=== PATIENT | female | born 1960 | race Caucasian/White ===

== ENCOUNTER 2023-12-06 09:12 | Outpatient (REF) | payer OTHER, SELFPAY ==
[2023-12-06 10:04] LABS: Cholesterol 240 mg/dL (<200); HDL Cholesterol 51 mg/dL (>40); LDL Cholesterol Calculated 160 mg/dL (<100); Triglycerides 146 mg/dL (<150)
[2023-12-06 10:07] LABS: Estimated Average Glucose 120 mg/dL; Hemoglobin A1c % 5.8 % (<6.0)
[2023-12-09 09:19] LABS: CRP High Sensitivity 19.5 mg/L
== END 2023-12-06 09:13 | disposition home or self-care (01) ==
LOC: HO.LAB 09:12
PROVIDERS: PCP Physician Assistant; Visit Provider Physician Assistant
DX: I10 Essential (primary) hypertension (principal); Z13.1 Encounter for screening for diabetes mellitus
CPT/HCPCS: 36415; 80061; 83036; 86141

== ENCOUNTER 2023-12-13 18:54 | Emergency (ER) | payer OTHER, SELFPAY ==
--- NOTE | ~2023-12-13 | XR_ITS ---
EXAMINATION: XR ELBOW, LEFT CLINICAL INFORMATION: Pain, injury. COMPARISON: None available. TECHNIQUE: AP, lateral, and oblique views of the left elbow. FINDINGS: The bones and soft tissues are normal. No fracture or joint effusion. Alignment is anatomic. Joint spaces are maintained. XR/XR elbow LT min 3V IMPRESSION: Normal left elbow. Electronically signed by: Pauline Andrade MD 12/13/2023 08:54 PM EDT
--- NOTE | ~2023-12-13 | CT_ITS ---
EXAMINATION: CT HEAD WITHOUT CONTRAST CLINICAL INFORMATION: Fall. Head strike and pain. COMPARISON: None available. TECHNIQUE: Contiguous axial imaging was performed from the skull base to vertex without intravenous administration of contrast. This CT examination was performed using dose optimization techniques as appropriate, variously including the following: *Automated exposure control *Adjustment of mA and/or kV according to patient size (this includes techniques or standardized protocols for targeted exams where dose is matched to indication/reason for exam; i.e. extremities or head) *Use of iterative reconstruction technique DLP: 1055 mGy-cm FINDINGS: No acute intracranial hemorrhage. No evidence of acute/subacute cerebral or cerebellar infarction. There is no midline shift or mass effect. There is no extra-axial fluid collection. The ventricles are normal in size. The orbits are symmetric and within normal limits. The calvarium is intact. Visualized paranasal sinuses are clear. Mastoid air cells are well aerated. CT/CT head/brain wo IV con IMPRESSION: No acute intracranial pathology. Electronically signed by: Geovany Kaur DO 12/13/2023 08:55 PM EDT
--- NOTE | ~2023-12-13 | XR_ITS ---
EXAMINATION: XR FOOT, LEFT CLINICAL INFORMATION: Pain, injury. COMPARISON: None available. TECHNIQUE: AP, lateral, and oblique views of the left foot. FINDINGS: No acute fracture or dislocation. Moderate multifocal degenerative osteoarthritis more prominent in the first MTP joint and second through fourth TMT joints. Nonspecific diffuse soft tissue swelling. XR/XR foot LT min 3V IMPRESSION: 1. No acute fracture or dislocation. 2. Moderate multifocal degenerative osteoarthritis. Electronically signed by: Pauline Andrade MD 12/13/2023 08:56 PM EDT
--- NOTE | ~2023-12-13 | CT_ITS ---
EXAMINATION: CT CERVICAL SPINE WITHOUT CONTRAST CLINICAL INFORMATION: Fall. Head strike. COMPARISON: None available. TECHNIQUE: Noncontrast computed tomography of the cervical spine was performed. This CT examination was performed using dose optimization techniques as appropriate, variously including the following: *Automated exposure control *Adjustment of mA and/or kV according to patient size (this includes techniques or standardized protocols for targeted exams where dose is matched to indication/reason for exam; i.e. extremities or head) *Use of iterative reconstruction technique DLP: 437.74 mGy-cm FINDINGS: Prevertebral soft tissue is normal in appearance. The atlantooccipital articulations are intact. The C1-C2 relationship is anatomic. There is reversal of the cervical lordosis with kyphotic deformity centered at C4-5. The posterior elements are anatomically aligned. Vertebral body heights are preserved. There is moderate multilevel degenerative disc disease extending from C3-4 through C6-7. There is multilevel facet arthropathy. No acute fracture. The visualized lung apices are clear. The thyroid gland is normal in appearance. CT/CT cervical spine wo IV con IMPRESSION: No acute osseous cervical spine abnormality. There is reversal of the cervical lordosis with kyphotic deformity centered at C4-5. There is moderate cervical spondylosis. Fleischner guidelines were followed. Electronically signed by: Geovany Kaur DO 12/13/2023 09:01 PM EDT
--- NOTE | ~2023-12-13 | XR_ITS ---
EXAMINATION: XR ANKLE, LEFT CLINICAL INFORMATION: Pain, injury. COMPARISON: None available. TECHNIQUE: AP, lateral, and mortise views of the left ankle. FINDINGS: Focal subcortical lucency and irregularity along the medial intra-articular surface of the talar dome. No dislocation. No significant soft tissue abnormality. XR/XR ankle LT min 3V IMPRESSION: Focal subcortical lucency and irregularity along the medial intra-articular surface of the talar dome, suspicious for an osteochondral defect/lesion. Consider further characterization with MRI. Electronically signed by: Pauline Andrade MD 12/13/2023 08:58 PM EDT
[2023-12-13 18:56] VITALS: BP 154/78; PULSE 109; RESP 17; TEMP 37; O2SAT 95; BMI 36.3
--- NOTE | 2023-12-13 19:09 | ED_ITS ---
HPI - General Adult General Chief complaint: Fall Stated complaint: passed out? Time Seen by Provider: 12/13/23 19:08 Source: patient Mode of arrival: wheelchair Limitations: no limitations History of Present Illness ED Provider: Agustina Lopes PA-C HPI narrative: 63 yo female presents following fall with head strike. States that she was standing in hallway and was struck by meal cart on her left ankle. She was knocked off her feet and spun around. She struck the back of her head against the wall and landed on her left elbow. She says she has a lump on the back of her head and abrasions on her left medial ankle, left palm, and left elbow. Has pain in left posterior neck with no radiation. Denies loss of consciousness, dizziness or syncope. Denies blurry or double vision, nausea. Onset (ago): hour(s) Location: head, upper extremity and lower extremity Radiation: neck Severity: mild Quality: aching Pain Consistency: constant Relieving factors: none Exacerbating factors: none Associated symptoms: denies other symptoms Treatments prior to arrival: none Related Data Allergies Allergy/AdvReac Type Severity Reaction Status Date / Time acetaminophen [From Percocet] Allergy Swelling Verified 12/13/23 18:59 latex Allergy Hives Verified 12/13/23 18:59 oxycodone [From Percocet] Allergy Swelling Verified 12/13/23 18:59 Review of Systems 2 Constitutional: Constitutional: Reports no additional constitutional complaints, Denies chills, Denies fever(s), Reports headache(s) and Denies night sweats Eyes: Eyes: Reports no additional eye complaints, Denies blurry vision, Denies change in vision, Denies diplopia, Denies eye discharge, Denies loss of vision and Denies eye pain ENT: Denies dizziness and Reports headache(s) Cardiovascular: Cardiovascular: Reports no additional cardiovascular complaints, Denies chest pain, Denies lightheadedness, Denies Loss of Consciousness and Denies dyspnea Respiratory: Respiratory: Reports no additional respiratory complaints and Denies dyspnea Gastrointestinal: Gastrointestinal: Reports no additional gastrointestinal complaints, Denies abdominal pain, Denies melena, Denies hematochezia, Denies change in bowel habits and Denies change in stool character Genitourinary: Genitourinary: Denies hematuria, Denies urinary frequency, Denies dysuria, Denies urinary incontinence, Denies urinary hesitancy and Denies urinary urgency Musculoskeletal: Musculoskeletal: Reports as per HPI, Denies numbness and Denies tingling Comments: left ankle pain, left elbow pain Integumentary/Breasts: Skin/Breast: Reports as per HPI Neurologic: Denies dizziness, Reports headache(s), Denies loss of vision, Denies numbness and Denies tingling Psychiatric: Psychiatric: Reports no additional psychiatric complaints Endocrine: Endocrine: Reports no additional endocrine complaints Hematologic/Lymphatic: Hematologic/Lymphatic: Reports no additional hematologic/lymphatic complaints Allergic/Immunologic: Allergic/Immunologic: Reports no additional allergic/immunologic complaints PMFSH Past Medical History Attestation statement: The following information was validated with the patient. Source: old records reviewed and nursing notes reviewed Social History Social History Alcohol intake: current Alcohol type: hard liquor Smoked in Last 30 Days: No Use of substances other than those prescribed or required for medical reasons: No Advance Directives: No Advance Directives Information Provided: No Patient : No Physical Exam ED Vital Signs: Vital Signs - 24 hr 12/13/23 18:56 12/13/23 21:32 12/14/23 01:12 Temperature 98.6 F 98.5 F 98.5 F Pulse Rate 109 H 101 H 101 H Respiratory Rate 17 18 18 Blood Pressure 154/78 H 149/86 H 149/86 H Pulse Oximetry 95 95 95 Oxygen Delivery Method Room Air Room Air Room Air BMI result Body Mass Index 36.3 Const General: cooperative, no acute distress, alert and awake Nutritional Appearance: well nourished Orientation/consciousness: patient oriented x3 Limitations: no limitations [facility] Head: Yes normal to inspection, No Sykes's sign, Yes contusion, No palpable skull fracture, No raccoon eyes and Yes scalp tenderness Ears: hearing grossly normal bilaterally and external ears normal General nose exam: Normal external nose present, no nasal discharge noted and no epistaxis Face and sinus: Yes normal facial exam, No abrasion and No laceration Mouth: Normal oral and palatal mucosa present, no drooling and no muffled voice Eyes General: appearance normal, both eyes and all related structures Periorbital: periorbital findings normal Eyelids: Yes eyelids normal Conjunctivae: conjunctivae normal Pupils: Equal, round and reactive pupils present EOM: EOMs intact bilaterally Neck Neck: Yes normal visual inspection, Yes full ROM and Yes no lymphadenopathy Chest Chest palpation & inspection: normal inspection of the chest Resp Effort & Inspection: normal respiratory effort and able to speak in complete sentences GI Inspection: Yes normal to inspection Neuro General: patient oriented x3 and moves all extremities Cranial nerves: Yes Equal, round and reactive pupils present Cognition (Neuro): normal cognition Extrem General: Yes full ROM and Yes capillary refill normal Right upper extremity: normal to inspection Left upper extremity: elbow/forearm Details: tenderness, normal ROM and abrasion and hand Details: normal capillary refill, neuromotor exam normal, neurosensory exam normal, tenderness, normal ROM of fingers and abrasion Shoulder/upper arm images: 2 1. Abrasion, no bleeding Hand/finger images: 2 1. Abrasion, no bleeding. Right lower extremity: normal to inspection Left lower extremity: full ROM, normal capillary refill and ankle Details: tenderness, no edema and abrasion (Medial ankle over medial malleolus) Ankle/foot/toe images: 2 1. Abrasion, no bleeding Psych Appearance: grossly normal Mental Status: mental status grossly normal Affect: normal affect Attitude: cooperative Thought process: Normal thought process present Thought content: Normal thought content present Insight: Good insight present (Psych) Medications Administered Discontinued Medications Generic Name Dose Route Start Last Admin Trade Name Freq PRN Reason Stop Dose Admin Naproxen 500 mg 12/13/23 20:09 12/13/23 20:18 Naproxen 500 Mg Tablet PO 12/13/23 20:10 500 mg ONCE ONE Administration Procedures Orthopedic Splinting/Casting Injury #1: Side: left Lower Extremity Injury Location: ankle and foot Lower Extremity Immobilizer: boot orthosis Medical Decision Making Medical Decision Making MDM Narrative: Patient is a 63 year old assigned female at with no reported medical history presenting to the emergency department today with left ankle pain, left elbow pain, and a headache after being struck by a meal cart. Patient's physical exam was as noted in the physical exam portion of this note. Patient's left elbow x-ray, head CT, and C-spine CT showed no acute process. Patient's left ankle x-ray showed a focal subcortical lucency and irregularity along the medial intra-articular surface of the talar dome which may represent a ligament injury. I explained my physical exam findings as well as all test results to the patient. I answered all questions asked by the patient. Patient's left ankle was placed in a walking boot, without incident. Patient's PMS was intact prior to and after boot placement. I stressed the importance of the patient taking her medication as directed (either prescribed or as the over the counter packaging recommends). I stressed the importance of the patient following up with her primary care provider, work connection, and an orthopedic provider. I stressed the importance of the patient returning to the emergency department immediately if her symptoms were to worsen or if she were to develop any dizziness, shortness of breath, difficulty breathing, chest pain, blurry vision, loss of vision, nausea, vomiting, abdominal pain, fever, chills, back pain, or any other complaints. Patient verbalized agreement and understanding with this treatment plan and discharge. Differential Diagnosis Differential Diagnoses: The differential diagnosis associated with the presentation includes Ankle sprain Fall Head injury Cervical injury Ankle fracture Ligament injury Admission/Observation Consideration of admission/observation: Escalation of care including admission/observation considered Patient would have been admitted to the hospital had her work up had any findings where hospital admission was appropriate and her clinical presentation warranted hospital admission. Independent Interpretation I performed an independent interpretation of an: Plain X-Ray and CT Scan Interpretation: My interpretation is in agreement with the radiologist's impression of these imaging studies. L EXAMINATION: XR ANKLE, LEFT CLINICAL INFORMATION: Pain, injury. COMPARISON: None available. TECHNIQUE: AP, lateral, and mortise views of the left ankle. FINDINGS: Focal subcortical lucency and irregularity along the medial intra-articular surface of the talar dome. No dislocation. No significant soft tissue abnormality. XR/XR ankle LT min 3V IMPRESSION: Focal subcortical lucency and irregularity along the medial intra-articular surface of the talar dome, suspicious for an osteochondral defect/lesion. Consider further characterization with MRI. Electronically signed by: Pauline Andrade MD 12/13/2023 08:58 PM EDT Dictated By: Pauline Andrade Signed By: Electronically signed by Pauline Andrade 12/13/232057 EXAMINATION: XR ELBOW, LEFT CLINICAL INFORMATION: Pain, injury. COMPARISON: None available. TECHNIQUE: AP, lateral, and oblique views of the left elbow. FINDINGS: The bones and soft tissues are normal. No fracture or joint effusion. Alignment is anatomic. Joint spaces are maintained. XR/XR elbow LT min 3V IMPRESSION: Normal left elbow. Electronically signed by: Pauline Andrade MD 12/13/2023 08:54 PM EDT RP Dictated By: Pauline Andrade Signed By: Electronically signed by Pauline Andrade 12/13/232053 EXAMINATION: CT CERVICAL SPINE WITHOUT CONTRAST CLINICAL INFORMATION: Fall. Head strike. COMPARISON: None available. TECHNIQUE: Noncontrast computed tomography of the cervical spine was performed. This CT examination was performed using dose optimization techniques as appropriate, variously including the following: *Automated exposure control *Adjustment of mA and/or kV according to patient size (this includes techniques or standardized protocols for targeted exams where dose is matched to indication/reason for exam; i.e. extremities or head) *Use of iterative reconstruction technique DLP: 437.74 mGy-cm FINDINGS: Prevertebral soft tissue is normal in appearance. The atlantooccipital articulations are intact. The C1-C2 relationship is anatomic. There is reversal of the cervical lordosis with kyphotic deformity centered at C4-5. The posterior elements are anatomically aligned. Vertebral body heights are preserved. There is moderate multilevel degenerative disc disease extending from C3-4 through C6- 7. There is multilevel facet arthropathy. No acute fracture. The visualized lung apices are clear. The thyroid gland is normal in appearance. CT/CT cervical spine wo IV con IMPRESSION: No acute osseous cervical spine abnormality. There is reversal of the cervical lordosis with kyphotic deformity centered at C4-5. There is moderate cervical spondylosis. Fleischner guidelines were followed. Electronically signed by: Geovany Kaur DO 12/13/2023 09:01 PM EDT RP Dictated By: Geovany Kaur Jr, DO Signed By: Electronically signed by Geovany Kaur Jr DO 12/13/232100 EXAMINATION: CT HEAD WITHOUT CONTRAST CLINICAL INFORMATION: Fall. Head strike and pain. COMPARISON: None available. TECHNIQUE: Contiguous axial imaging was performed from the skull base to vertex without intravenous administration of contrast. This CT examination was performed using dose optimization techniques as appropriate, variously including the following: *Automated exposure control *Adjustment of mA and/or kV according to patient size (this includes techniques or standardized protocols for targeted exams where dose is matched to indication/reason for exam; i.e. extremities or head) *Use of iterative reconstruction technique DLP: 1055 mGy-cm FINDINGS: No acute intracranial hemorrhage. No evidence of acute/subacute cerebral or cerebellar infarction. There is no midline shift or mass effect. There is no extra-axial fluid collection. The ventricles are normal in size. The orbits are symmetric and within normal limits. The calvarium is intact. Visualized paranasal sinuses are clear. Mastoid air cells are well aerated. CT/CT head/brain wo IV con IMPRESSION: No acute intracranial pathology. Electronically signed by: Geovany Kaur DO 12/13/2023 08:55 PM EDT RP Dictated By: Geovany Kaur Jr, DO Signed By: Electronically signed by Geovany Kaur Jr DO 12/13/232054 EXAMINATION: XR FOOT, LEFT CLINICAL INFORMATION: Pain, injury. COMPARISON: None available. TECHNIQUE: AP, lateral, and oblique views of the left foot. FINDINGS: No acute fracture or dislocation. Moderate multifocal degenerative osteoarthritis more prominent in the first MTP joint and second through fourth TMT joints. Nonspecific diffuse soft tissue swelling. XR/XR foot LT min 3V IMPRESSION: 1. No acute fracture or dislocation. 2. Moderate multifocal degenerative osteoarthritis. Electronically signed by: Pauline Andrade MD 12/13/2023 08:56 PM EDT RP Dictated By: Pauline Andrade Signed By: Electronically signed by Pauline Andrade 12/13/232055 Radiology Impression Discussion of test interpretation with radiology: I have reviewed the radiologist's reading. Discharge Plan Discharge Clinical Impression: Ankle sprain, Fall Patient Disposition: Home, Self-Care Instructions: Ankle Sprain (DC) Additional Instructions: Your ankle x-ray showed evidence of a possible ligament injury. Whenever you are ambulating, please remain in the walking boot. You may remove it when you are stationary. Follow up with your primary care provider, an orthopedic provider, and work connection. Return to the emergency department immediately if your symptoms worsen or if you develop any dizziness, shortness of breath, difficulty breathing, chest pain, blurry vision, loss of vision, nausea, vomiting, abdominal pain, fever, chills, back pain, or any other complaints. Referrals: [facility] Family [facility] [Provider Group] (Call to establish and follow up with a primary care provider. If you already have a primary care provider, please follow up with them.) [facility] [Provider Group] (Call to establish and follow up with a primary care provider. If you already have a primary care provider, please follow up with them.) [facility] [Provider Group] (Call to establish and follow up with a primary care provider. If you already have a primary care provider, please follow up with them.) [facility] [Provider Group] (Call to establish and follow up with an orthopedic provider.) [facility] [Provider Group] (Given this injury occurred in the work place while you were on shift, please follow up with work connection.) Interventions: ED Discharge Assessment Last Done: 12/14/23 01:12 Discharge Date/Time: 12/13/23 21:40 Print Language: Tunisian
[2023-12-13] MEDS: NaPROXEN 500 MG TABLET PO (20:18)
[2023-12-13 21:32] VITALS: BP 149/86; PULSE 101; RESP 18; TEMP 36.9; O2SAT 95
[2023-12-14 01:12] VITALS: BP 149/86; PULSE 101; RESP 18; TEMP 36.9; O2SAT 95
== END 2023-12-13 21:40 | disposition home or self-care (01) ==
PROVIDERS: Emergency Provider Internal Medicine
DX: S93.402A Sprain of unspecified ligament of left ankle, initial encounter (principal); W20.8XXA Other cause of strike by thrown, projected or falling object, initial encounter; M54.2 Cervicalgia; Y93.89 Activity, other specified; Y92.232 Corridor of hospital as the place of occurrence of the external cause; Y99.0 Civilian activity done for income or pay
CPT/HCPCS: 70450; 72125; 73080; 73610; 73630; 99284

== ENCOUNTER → 2023-12-16 08:24 | Outpatient (BNVA) | payer OTHER, SELFPAY | PROVIDERS: Visit Provider Internal Medicine | DX: Z13.89 Encounter for screening for other disorder (principal) | CPT/HCPCS: 73502; 99213 ==

== ENCOUNTER 2023-12-19 10:24 | Outpatient (REF) | payer OTHER, SELFPAY ==
[2023-12-21 00:09] LABS: CRP High Sensitivity 14.1 mg/L
== END 2023-12-19 10:25 | disposition home or self-care (01) ==
LOC: HO.LAB 10:24
PROVIDERS: PCP Physician Assistant; Visit Provider Physician Assistant
DX: I10 Essential (primary) hypertension (principal)
CPT/HCPCS: 36415; 86141

== ENCOUNTER → 2024-01-01 08:06 | Outpatient (REF) | payer OTHER, SELFPAY ==
--- NOTE | 2024-01-01 08:15 | CA_ITS ---
Transthoracic Echocardiogram Patient (Last, First, Middle): Angela Mccracken M Gender: Female Date of : 1960 Age: 63 Procedure Date: 01/01/2024 Procedure Type: Transthoracic Echocardiogram Location: OP Height: 152.4 cm Weight: 81.65 kg BSA: 1.78 m2 Heart Rate: 106 bpm BP: 154 / 84 mmHg Sign Out Clerk: SB Referring MD: Evon BERMAN Symptoms: CP Study Quality: Adequate ECG Rhythm: Sinus Conclusions: - The left ventricular systolic function is normal. The visually estimated ejection fraction is between 55-60%. - No obvious valvular pathology seen on this study. Findings Left Ventricle Normal left ventricular cavity size. The left ventricular systolic function is normal. The visually estimated ejection fraction is between 55-60%. There is no evidence of regional wall motion abnormalities. Diastolic function is normal for age. Focal hypertrophy of the basal septum. Right Ventricle Normal right ventricular cavity size and systolic function. Atria Both atria are normal in size. Aortic Valve The aortic valve was not well visualized. There is no aortic valve stenosis. There is no aortic valve regurgitation. Mitral Valve The mitral valve appears normal. There is no mitral valve regurgitation. There is no mitral valve stenosis. Pulmonic Valve The pulmonic valve is likely normal. Tricuspid Valve Normal tricuspid valve structure. There is trace tricuspid valve regurgitation. Tricuspid regurgitation envelope is inadequate for calculation of right ventricular systolic pressure. Great Vessels The sinuses of valsalva and asc aorta are normal in size. Venous The inferior vena cava is normal in size and collapses less than 50% with inspiration. Pericardium/Pleural There is no evidence of pericardial effusion. Prior Study Comparison No prior study available for comparison. Recommendations, Care & Conclusions No obvious valvular pathology seen on this study. Measurements 2D Linear Measurements IVSd: 0.81 0.6-0.9/0.6-1.0 cm LVIDd: 5.40 3.9-5.3/4.2-5.9 cm LVIDd Index: 3.03 2.4-3.2/2.2-3.1 cm/m2 LVIDs: 3.93 2.0-3.6 cm LVPWd: 0.75 0.7-1.1 cm LA Diam: 2.80 2.7-3.8/3.0-4.0 cm LAIDs Index: 1.57 1.5-2.3 cm/m2 LV Mass: 186.27 67-162/88-224 g LV Mass Index: 104.65 43-95/49-115 g/m2 LVOT Diam: 2.00 3.0+(-)1.3 cm 2D Systolic Function EF 4C: 53.70 >55% EF 2C: 50.60 >55% EF BiP: 51.20 >55% Mitral Valve MV Pk E: 0.91 MV PK A: 1.30 MV Decel Time: 154.00 E/A: 0.70 E'Lateral: 8.81 E'Medial: 6.64 E/E' Med: 13.80 E/E' Lat: 10.40 PHT: 45.00 MVA PHT: 4.89 Decel Milam: 5.91 Aortic Valve AoV Pk Vineet: 1.67 AoV Pk Grad: 11.00 MARIANNA: 2.21 LVOT LVOT Pk Vineet: 1.20 LVOT Mn Vineet: 0.89 LVOT VTI: 0.23 LVOT Pk Grad: 6.00 LVOT Mn Grad: 3.00 LVOT Diam: 2.00 LVOT Area: 3.14 Diastolic Function MV Pk E: 0.91 MV Pk A: 1.30 E/A: 0.70 E'Medial: 6.64 E/E' Med: 13.80 E' Laterial: 8.81 E/E' Lat: 10.40 Right Ventricle TAPSE (mm): 18.00 TVS' Vineet: 12.60 Tricuspid Valve RA Press: 8.00 Great Vessels Aorta Sinus of Valsalva: 2.90 2.0-3.5 cm Ao Asc: 3.00 2.1-3.4 cm Pulmonary Valve PV Pk Vineet: 1.10 Peak PV Grad: 5.00 Updated in Other Vendor System with Status of Final Cristhian Hernandez MD electronically signed on 01/01/2024 12:22:41 PM with status of Final
== END ==
LOC: HO.CARD 08:06
PROVIDERS: PCP Physician Assistant; Visit Provider Physician Assistant
DX: R07.9 Chest pain, unspecified (principal)
CPT/HCPCS: 93306

== ENCOUNTER → 2024-01-01 08:15 | Outpatient (BNV) | payer OTHER, SELFPAY | PROVIDERS: PCP Physician Assistant; Visit Provider Internal Medicine | DX: I42.2 Other hypertrophic cardiomyopathy (principal) | CPT/HCPCS: 93306 ==

== ENCOUNTER → 2024-01-01 08:57 | Outpatient (BNVA) | payer OTHER, SELFPAY | PROVIDERS: PCP Physician Assistant; Visit Provider Internal Medicine | DX: Z13.89 Encounter for screening for other disorder (principal) | CPT/HCPCS: 99213 ==

== ENCOUNTER → 2024-01-03 09:27 | Outpatient (REF) | payer OTHER, SELFPAY ==
--- NOTE | 2024-01-03 09:31 | CA_ITS ---
Acquisition Time: 2024-01-03 09:46:11 Total Exercise Time: 00:03:29 Test Indications: CHEST PAIN Medications: Protocol: FLASH Max HR: 146 BPM 91% of Pred: 159 BPM Max BP: 240/100 mmHG Max Work Load: 5.1 METS Exercise stress test with exercise 3 min 29 sec of Flash protocol, achieving 88% MPHR, with request to stop due to shortness of breath, with isolated PVC, with hypertensive response to exercise with max BP 230/110, then 240/100 in early recovery, without EKG changes meeting criteria for ischemia at achieved workload. In recovery her breathing quickly improved and BP gradually returned to 148/84. She had not taken her am antihypertensives - she was allowed to take them in the recovery period. ( amlodipine and losartan). Test reviewed with Dr Cooper If further evaluation for ischemia is needed, recommend a pharmacological ( lexiscan) nuclear stress test. Referred By: Evon Winkler Overread By: ASHLEE MAHAN
== END ==
LOC: HO.CARD 09:27
PROVIDERS: PCP Physician Assistant; Visit Provider Physician Assistant
DX: R07.9 Chest pain, unspecified (principal)
CPT/HCPCS: 93017

== ENCOUNTER → 2024-01-03 09:31 | Outpatient (BNV) | payer OTHER, SELFPAY | PROVIDERS: PCP Physician Assistant; Visit Provider Nurse Practitioner Family | DX: I49.3 Ventricular premature depolarization (principal); R03.0 Elevated blood-pressure reading, without diagnosis of hypertension | CPT/HCPCS: 93016; 93018 ==

== ENCOUNTER 2024-01-31 16:21 | Outpatient (REF) | payer OTHER, SELFPAY ==
--- NOTE | ~2024-01-31 | MM_ITS ---
EXAMINATION: MM SCREENING DIGITAL BREAST TOMOSYNTHESIS, BILATERAL CLINICAL INFORMATION: Screening. Asymptomatic. COMPARISON: Mammography: Comparison is made with available priors TECHNIQUE: Digital breast mammography with tomosynthesis is performed in both the craniocaudal and mediolateral oblique views along with computer-aided detection (CAD). FINDINGS: There are scattered areas of fibroglandular density (ACR BI-RADS breast composition Category b). There are no significant masses, abnormal calcifications, or other abnormalities. MM/MM tomosynthesis screening BI IMPRESSION: No mammographic evidence of malignancy. ASSESSMENT: BI-RADS BI-RADS 1 - Negative RECOMMENDATION: Routine annual mammography screening. 1 year F/U This examination should not preclude the clinical evaluation of a suspicious palpable abnormality. This patient's information was entered into a reminder system with a target due date for their next mammogram. Electronically signed by: Nancy Cha DO 02/04/2024 11:11 AM ALLEN
== END 2024-01-31 16:22 | disposition home or self-care (01) ==
LOC: HO.MAMMO 16:21
PROVIDERS: PCP Physician Assistant; Visit Provider Physician Assistant
DX: Z12.31 Encounter for screening mammogram for malignant neoplasm of breast (principal)
CPT/HCPCS: 77063; 77067

== ENCOUNTER → 2024-01-31 16:30 | Outpatient (BNV) | payer OTHER, SELFPAY | PROVIDERS: PCP Physician Assistant; Visit Provider Internal Medicine | DX: Z12.31 Encounter for screening mammogram for malignant neoplasm of breast (principal) | CPT/HCPCS: 77063; 77067 ==

== ENCOUNTER 2024-02-23 17:16 | Emergency (ER) | payer OTHER, SELFPAY ==
--- NOTE | 2024-02-23 17:18 | ED.GENADULT ---
HPI - General Adult General Chief complaint: Nausea/Vomiting/Diarrhea Stated complaint: vomiting, headache Time Seen by Provider: 02/23/24 20:13 Source: patient Mode of arrival: ambulatory Limitations: no limitations History of Present Illness ED Provider: HPI narrative: Patient has been having nausea vomiting diarrhea for last 6 days unable to eat or drink much yesterday patient has vomited more than 6 times and had same amount of bowel today vomited only 3 times only 3 bowel movement also complaining of diffuse abdominal discomfort which started after vomiting no other family member sick had low-grade fever and chills no recent antibiotic patient has had similar complaints in the past Related Data Previous Rx's ?Medication ?Instructions ?Recorded ondansetron 4 mg disintegrating 4 mg PO Q6-8H PRN nausea and 02/24/24 tablet vomiting #10 tabs potassium chloride 10 mEq 10 meq PO DAILY #7 caps 02/24/24 capsule,extended release Allergies Allergy/AdvReac Type Severity Reaction Status Date / Time acetaminophen [From Percocet] Allergy Swelling Verified 02/23/24 17:20 latex Allergy Hives Verified 02/23/24 17:20 oxycodone [From Percocet] Allergy Swelling Verified 02/23/24 17:20 Review of Systems Review of Systems: Yes all other systems are reviewed and are negative PMFSH Social History Social History Alcohol intake: current Alcohol type: hard liquor Smoked in Last 30 Days: No Use of substances other than those prescribed or required for medical reasons: No Advance Directives: No Advance Directives Information Provided: No Do you have a plan to hurt others: No Plan Patient : No Physical Exam ED Vital Signs: Vital Signs - 24 hr 02/23/24 17:19 02/23/24 19:04 02/23/24 20:48 Temperature 98.3 F 98.1 F 97.5 F Pulse Rate 119 H 112 H 109 H Respiratory Rate 20 20 14 Blood Pressure 145/91 H 166/101 H 155/88 H Pulse Oximetry 99 97 99 Oxygen Delivery Method Room Air Room Air Room Air 02/23/24 22:10 02/24/24 00:58 Temperature 97.9 F 98.2 F Pulse Rate 111 H 96 Respiratory Rate 18 12 Blood Pressure 165/86 H 109/77 Pulse Oximetry 97 96 Oxygen Delivery Method Room Air Room Air BMI result Body Mass Index 34.0 Appearance: Alert. Oriented X3. No acute distress. Eyes: PERRLA, No Nystagmus ENT: Pharynx normal. Oral Mucosa moist Neck: Normal inspection. Neck supple. CVS: Normal heart rate and rhythm. Pulses normal. Respiratory: No respiratory distress. Equal air entry bilateral, no wheezing/rales/rhonchi Abdomen: Soft and diffuse tenderness no rebound tenderness Bowel sounds are present, no mass palpable, no CVA tenderness Skin: Skin warm and dry. Normal skin color. Normal skin turgor. Extremities: No lower extremity edema. No calf tenderness Neuro: Oriented X 3. No motor deficit. No sensory deficit.No cerebellar signs , cranial nerves II-XII intact Course Course Course Narrative: This is an RME performed by Nathaniel Oshea CNP: Additional HPI, ROS, PE not included below will be deferred to primary provider. patient is a 63-year-old female who presents to the emergency department for evaluation of nausea, Nonbilious vomiting 3 times daily, liquid brown nonbloody diarrhea 2-3 times daily, with mid abdominal pain described as an intermittent tight squeeze, fevers, chills, headache. last took Zofran just prior to arrival. Admits to a similar history in the past, unclear etiology, states that she required admission due to electrolyte derangement and TROY. States that she thought symptoms would improve therefore did not come sooner. Plan: Serum labs, viral serologies, urinalysis Medications Administered Discontinued Medications Generic Name Dose Route Start Last Admin Trade Name Freq PRN Reason Stop Dose Admin Famotidine 20 mg 02/23/24 20:25 02/23/24 20:38 Famotidine/Pf 20 Mg/2 Ml Vial IVPUSH 02/23/24 20:26 20 mg ONCE ONE Administration Sodium Chloride 1,000 mls @ 999 mls/hr 02/23/24 20:20 02/23/24 21:40 Ns IV 02/23/24 21:20 Infused .Q1H1M ONE Infusion Potassium Chloride 10 meq in 100 mls @ 100 mls/hr 02/23/24 20:24 02/23/24 21:49 Potassium Chloride/H20 IV 02/23/24 21:23 Infused ONCE ONE Infusion Lactated Ringer's 1,000 mls @ 999 mls/hr 02/23/24 20:51 02/23/24 23:00 Lr IV 02/23/24 21:51 Infused .Q1H1M ONE Infusion Potassium Chloride 10 meq in 100 mls @ 100 mls/hr 02/24/24 01:15 02/24/24 03:15 Potassium Chloride/H20 IV 02/24/24 03:14 100 mls/hr Q1H KYLE Administration Lorazepam 1 mg 02/23/24 22:28 02/23/24 22:48 Lorazepam 2 Mg/Ml Vial IVPUSH 02/23/24 22:29 1 mg ONCE ONE Administration Ondansetron HCl 4 mg 02/23/24 19:15 02/23/24 19:18 Ondansetron Hcl 4 Mg/2 Ml Vial IVPUSH 02/23/24 19:16 4 mg ONCE ONE Administration Ondansetron HCl 4 mg 02/23/24 20:24 02/23/24 20:40 Ondansetron Hcl 4 Mg/2 Ml Vial IVPUSH 02/23/24 20:25 4 mg ONCE ONE Administration Potassium Bicarbonate 50 meq 02/24/24 01:12 02/24/24 01:19 Potassium Bicarbonate/Cit Ac 25 Meq Tablet.Eff PO 02/24/24 01:13 50 meq ONCE ONE Administration Medical Decision Making Medical Decision Making MDM Narrative: Patient with acute vomiting and diarrhea started about 5 - 6 days ago unable to eat or drink much no high-grade fever unable to eat or drink much in last 6 days nonfocal abdominal finding as more cramping pain then localized pain no vomiting or diarrhea in the ER workup showed hypokalemia IV fluids were given initially potassium was 3 repeat potassium was 2.8 will give more p.o. and IV potassium patient is taking p.o. fluids in the ER without significant nausea or vomiting no bowel movement in the ER patient did have similar presentation in the past requiring IV hydration and admission. Will give patient more potassium and recheck patient has had lactic acidosis secondary to volume loss not from sepsis it is type B lactic acidosis which improved after IV hydration 0142 Patient is signed out Dr. Dobbs pending repeat chemistry patient did not have any vomiting or diarrhea during stay in the ER -I received sign-out from my colleague Dr. Osuna -patient did not have any episodes of vomiting or diarrhea,= -patient was given more potassium p.o., back to normal at 3.7. Patient ready for discharge Differential Diagnosis Differential Diagnoses: The differential diagnosis associated with the presentation includes Gastroenteritis/colitis/food poisoning Admission/Observation Consideration of admission/observation: Escalation of care including admission/observation considered Lab Data MDM Lab Attestation statement: I reviewed the patient's lab results. 02/23/24 17:44 02/24/24 02:51 Labs: Lab Results 02/23/24 02/23/24 02/24/24 Range/Units 17:44 21:39 00:46 WBC 13.9 H (4.8-10.8) X10*3/uL RBC 5.40 (4.20-5.50) X10*6/uL Hgb 16.4 H (12.0-16.0) g/dl Hct 44.8 (37.0-47.0) % MCV 83.0 (80.0-98.0) fL MCH 30.4 (27.0-33.0) pg MCHC 36.6 H (31.0-35.0) g/dl RDW 13.3 (11.0-16.0) % Plt Count 327 D (160-400) X10*3/uL MPV 11.5 (9.4-12.3) fL Immature Gran % (Auto) Cancelled Neut % (Auto) Cancelled Lymph % (Auto) Cancelled [place] % (Auto) Cancelled Eos % (Auto) Cancelled Baso % (Auto) Cancelled Lymph # (Auto) Cancelled [place] # (Auto) Cancelled Eos # (Auto) Cancelled Baso # (Auto) Cancelled Abs Immat Gran (auto) Cancelled Absolute Neuts (auto) Cancelled Absolute Nucleated RBC 0.000 (0.0-0.012) X10*3/uL Nucleated RBC % (auto) 0.0 (0.0-0.2) /100WBC Neutrophils % (Manual) 89 H (45-73) % Band Neutrophils % 1 L (3-5) % Lymphocytes % (Manual) 8 L (20-40) % Monocytes % (Manual) 2 (2-11) % Abs Neuts (Manual) 12.5 H (2.0-8.3) X10*3/uL Lymphocytes # (Manual) 1.1 L (1.2-4.9) X10*3/uL Monocytes # (Manual) 0.3 (0.1-1.2) X10*3/uL Smudge Cells PRESENT Toxic Vacuolation PRESENT Platelet Estimate SLIGHTLY INCREASED (NORMAL) Large Platelets PRESENT Plt Morphology Comment NOTED RBC Morphology NORMAL Sodium 135 137 (135-145) mmol/L Potassium 3.0 L D 2.8 L* (3.3-5.1) mmol/L Chloride 94 L 98 (96-108) mmol/L Carbon Dioxide 27 25 (22-29) mmol/L Anion Gap 17 17 (12-20) BUN 19 H 17 H (9-16) mg/dL Creatinine 0.97 0.79 (0.5-1.4) mg/dL Estim Creat Clear Calc 58.9 72.3 Estimated GFR 58 > 60 Random Glucose 198 H 146 H (60-115) mg/dL Lactic Acid 2.8 H* 1.1 (0.5-2.0) mmol/L Calcium 9.7 8.8 D (8.4-10.2) mg/dL Magnesium 1.9 (1.6-2.6) mg/dL Total Bilirubin 1.0 (0.0-1.0) mg/dL AST 22 (5-31) U/L ALT 25 (0-31) U/L Alkaline Phosphatase 102 (39-117) U/L Total Protein 7.4 (6.5-8.0) g/dL Albumin 4.6 (3.5-5.0) g/dL Lipase 10 (8-78) U/L Urine Color Yellow Urine Appearance Cloudy Urine pH 6.0 (5.0-9.0) Ur Specific [place] 1.020 (1.005-1.025) Urine Protein Negative (Neg-Trace) mg/dL Urine Glucose (UA) Negative (Negative) mg/dL Urine Ketones Negative (Negative) mg/dL Urine Blood Negative (Negative) Urine Nitrite Negative (Negative) Ur Leukocyte Esterase Small (1+) H (Negative) Urine RBC 0-2 (0-2) /HPF Urine WBC 0-5 (0-5) /HPF Ur Squamous Epith Cells 0-2 (0-2) /HPF Calcium Oxalate Crystal Present Urine Bacteria None Seen (None Seen) Hyaline Casts 0-2 (0-2) /LPF Influenza Type A (PCR) NEGATIVE (Negative) Influenza Type B (PCR) NEGATIVE (Negative) RSV RNA Qual (PCR) NEGATIVE (Negative) SARS-CoV-2 RNA (RT-PCR) NEGATIVE (Negative) 02/24/24 Range/Units 02:51 WBC (4.8-10.8) X10*3/uL RBC (4.20-5.50) X10*6/uL Hgb (12.0-16.0) g/dl Hct (37.0-47.0) % MCV (80.0-98.0) fL MCH (27.0-33.0) pg MCHC (31.0-35.0) g/dl RDW (11.0-16.0) % Plt Count (160-400) X10*3/uL MPV (9.4-12.3) fL Immature Gran % (Auto) Neut % (Auto) Lymph % (Auto) [place] % (Auto) Eos % (Auto) Baso % (Auto) Lymph # (Auto) [place] # (Auto) Eos # (Auto) Baso # (Auto) Abs Immat Gran (auto) Absolute Neuts (auto) Absolute Nucleated RBC (0.0-0.012) X10*3/uL Nucleated RBC % (auto) (0.0-0.2) /100WBC Neutrophils % (Manual) (45-73) % Band Neutrophils % (3-5) % Lymphocytes % (Manual) (20-40) % Monocytes % (Manual) (2-11) % Abs Neuts (Manual) (2.0-8.3) X10*3/uL Lymphocytes # (Manual) (1.2-4.9) X10*3/uL Monocytes # (Manual) (0.1-1.2) X10*3/uL Smudge Cells Toxic Vacuolation Platelet Estimate (NORMAL) Large Platelets Plt Morphology Comment RBC Morphology Sodium (135-145) mmol/L Potassium 3.7 D (3.3-5.1) mmol/L Chloride (96-108) mmol/L Carbon Dioxide (22-29) mmol/L Anion Gap (12-20) BUN (9-16) mg/dL Creatinine (0.5-1.4) mg/dL Estim Creat Clear Calc Estimated GFR Random Glucose (60-115) mg/dL Lactic Acid (0.5-2.0) mmol/L Calcium (8.4-10.2) mg/dL Magnesium (1.6-2.6) mg/dL Total Bilirubin (0.0-1.0) mg/dL AST (5-31) U/L ALT (0-31) U/L Alkaline Phosphatase (39-117) U/L Total Protein (6.5-8.0) g/dL Albumin (3.5-5.0) g/dL Lipase (8-78) U/L Urine Color Urine Appearance Urine pH (5.0-9.0) Ur Specific [place] (1.005-1.025) Urine Protein (Neg-Trace) mg/dL Urine Glucose (UA) (Negative) mg/dL Urine Ketones (Negative) mg/dL Urine Blood (Negative) Urine Nitrite (Negative) Ur Leukocyte Esterase (Negative) Urine RBC (0-2) /HPF Urine WBC (0-5) /HPF Ur Squamous Epith Cells (0-2) /HPF Calcium Oxalate Crystal Urine Bacteria (None Seen) Hyaline Casts (0-2) /LPF Influenza Type A (PCR) (Negative) Influenza Type B (PCR) (Negative) RSV RNA Qual (PCR) (Negative) SARS-CoV-2 RNA (RT-PCR) (Negative) Independent Interpretation I performed an independent interpretation of an: EKG Interpretation: Normal sinus rhythm heart rate 98 beats per minute normal intervals normal axis no acute ST-T changes no acute ischemia Discharge Plan Discharge Clinical Impression: Gastroenteritis, Acute hypokalemia Patient Disposition: Home, Self-Care Instructions: Potassium Content of Foods List (ED), Hypokalemia (ED), Gastroenteritis (ED) Additional Instructions: Drink plenty of fluids Medicine for nausea as prescribed Eat food containing high potassium Potassium tablets as prescribed for next 1 week Follow up with your PCP to have a recheck of potassium in 1 week Prescriptions: New ondansetron 4 mg tablet,disintegrating 4 mg PO Q6-8H PRN (Reason: nausea and vomiting) Qty: 10 0RF potassium chloride 10 mEq capsule, extended release 10 meq PO DAILY Qty: 7 0RF Print Language: Lao
--- OUTSIDE RECORDS SUMMARY | 2024-02-23 17:18 | XMS_ITS ---
Author Organization [facility] madeleine Address [address] [place] [address] Care Team Providers Care Truck Jumper Name Role Phone Esme Claudio Primary Care Provider Austin Rios [phone] REASON FOR VISIT cyclobenzaprine refill request Medications Medication SIG (Take, Route, Frequency, Duration) Notes Start Date End Date Status Cyclobenzaprine HCl 10 MG 1 tab(s) orall y 3 times a day for 10 days PRN Active Encounters Encounter Location Date Provider Diagnosis [place] [address] [place] [address] 02/21/2024 Austin Rios Myalgia, unspecified site M79.10 Assessments Encounter Date Diagnosis (ICD Code) Assessment Notes Treat ment Notes Treatment Clinical Notes 02/21/2024 Myalgia, unspecified site (ICD-10 - M79.10) Plan Of Treatment Medication Medication Name Sig Start Date Stop Date Notes Cyclobenzaprine HCl 10 MG 1 tab(s) orall y 3 times a day for 10 days PRN Next Appt Details Provider Name:Esme hunter, 03/13/2024 02:15:00 PM, [address] [place], [address], Provider Name:Austin Rios, 0 03/30/2024 11:30:00 AM, [address] [place], [address], Progress Notes * RAND SAMANIEGODOB:1960 (63 yo F)Acc No.[id number]:02/21/2024 Patient:?RAND SAMANIEGO :1960???Age:63 Y???Sex:Female Address:[address] [place] [id number] * Refills? Refill Cyclobenzaprine HCl Tablet, 10 MG, orally, 30 Tablet, 1 tab(s), 3 times a day, 10 days, Refills=1 * true * Date:? Generated for Deanna callaway/Bart/eTemilysmitting on:?02/23/2024 05:18 PM EST
--- OUTSIDE RECORDS SUMMARY | 2024-02-23 17:18 | XMS_ITS | Continuity of Care Document ---
Author Organization [facility] Address [address] [place] [address]- Care Team Providers Care Fitter Placer Name Role Phone Esme Claudio MD Primary Care Physician Encounter 01/30/24 - 02/06/24 [facility] [address], [address] [place] [address]- Attending Physician: Ness Mccarty Admitting Physician: Ness Mccarty Referring Physician: Ness Mccarty Encounter Type: OutPatient One Time Allergies, Adverse Reactions, Alerts Substance Criticality Severity Reaction Reaction Severity Status Vicodin Active Latex Active Percocet 7.5/325 Act louisa Immunizations Given and Recorded Vaccine Date Status Refusal Reason Hepatitis A Vaccine (oldterm) 1 02/25/13 Given Yellow Fever Vaccine 02/25/13 Given Vivotif Janeth (oldterm) 2 02/08/13 Given 1Admin Note: hep A #1 2Admin Note: RX given Medications Adderall By Mouth, 2 times a day, 0 Refills, Maintenance, 12/01/19 9:11:00 AM EDT Start Date: 12/01/19 Status: Ordered Repeat number: 1 albuterol 90 mcg/inh inhalation aerosol 0 Refills, Maintenance Start Date: 12/01/19 Status: Ordered Repeat number: 1 Fish Oil 1 tablet, By Mouth, Daily, 0 Refills, Maintenance, 12/14/20 3:26:00 PM EDT, Partial fill upon patient request if the prescription is for a schedule II opioid drug. Start Date: 12/14/20 Status: Ordered Repeat number: 1 Flonase Daily, 0 Refills, Maintenance, 12/01/19 9:12:00 AM EDT Start Date: 12/01/19 Status: Ordered Repeat number: 1 levothyroxine 75 mcg (0.075 mg) oral tablet 1 tablet = 75 mcg, By Mouth, Daily, 0 Refills, Maintenance, 12/01/19 9:11:00 AM EDT Start Date: 12/01/19 Status: Ordered Repeat number: 1 Losartan = 100 mg, By Mouth, Daily, 0 Refills, Maintenance, 12/01/19 9:11:00 AM EDT Start Date: 12/01/19 Status: Ordered Repeat number: 1 Qvar Redihaler 40 mcg/inh inhalation aerosol Inhalation, 2 times a day, 0 Refills, Maintenance, 12/14/20 3:26:00 PM EDT, Partial fill upon patient request if the prescription is for a schedule II opioid drug. Start Date: 12/14/20 Status: Ordered Repeat number: 1 Singulair By Mouth, Daily, 0 Refills, Maintenance, 12/01/19 9:11:00 AM EDT Start Date: 12/01/19 Status: Ordered Repeat number: 1 Vitamin D3 By Mouth, Daily, 0 Refills, Maintenance, 12/01/19 9:11:00 AM EDT Start Date: 12/01/19 Status: Ordered Repeat number: 1 Problem List Condition Confirmation Course Effective Dates Status Health St atus Informant Travel vaccinations Confirmed Active Results Radiology Reports * Exam Date Time Procedure Performing Provider Status 01/30/24 12:[address] Heart W/O Dye Heber Eval Shane Reddy; Auth (Verified) Notes: (CT Heart W/O Dye Heber Eval) Reason For Exam: E78.5 HYPERLIPIDEMIA RESULT: CT Heart W/O Dye Heber Eval CT Heart W/O Dye Heber Eval INDICATION: Reason: E78.5 HYPERLIPIDEMIA; Clinical Question(s): Other:. Female of age 63 years, race White COMPARISON: None TECHNIQUE: Coronary artery Calcium Scoring. After a localizing commissioned security officer image was obtained, an ECG-gated noncontrast exam was obtained of the heart in late diastole. The region of interest was limited to the heart in order to optimize image quality. Weight-based protocol using automatic tube modulation was used to optimize exposure parameters. A [employer] 64 scanner was used, with Agatston scoring performed using [employer]) web-based software. This procedure is not being performed on thispatient for preoperative evaluation for low-risk surgery within 30 days. CTDIvol Body: 7.68 mGy, DLP Body: 100 mGy*cm. FINDINGS: Coronary Calcium Scoring Summary: Left Main: Score 0. LAD: Score 0. Circumflex: Score 0. Right: Score 0. TOTAL: Score 0 Non-coronary Findings: Lungs are clear. Unremarkable chest wall. Normal size aorta. Normal size heart. No lymphadenopathy. Upper abdomen is unremarkable. No acute bony findings. IMPRESSION: The Agatston coronary calcium score is 0. WSN: [id number] Ordering Physician: Ness Winkler Dictated By: Malia Ruelas MD Dictated Date/Time: 01/31/24 5:00 pm Reviewed By: Malia Ruelas MD Signed By: Malia Ruelas MD Signed Date/Time: 01/31/24 5:00 pm Transcribed By: ALEXANDRE Transcribed Date/Time: 01/31/24 4:57 pm Social History Social History Type Response Smoking Status 5-9 cigarettes (betw een 1/4 to 1/2 pack)/day in last 30 days entered on: 06/17/20 Sex Sex Representation Female (finding) Patient Care team information Care Team Personnel Name: Esme Claudio MD Position: [facility] Outreach Member Role: PCP Address: [address] [place] [address] [address] Cl[place], [place] [address] Telecom: Name: Aracelis Begum [place] Position: [facility] AL[place] Member Role: Lifetime Consulting Physician Care Team Related Persons Name: GISELLA AMBROSIO Name: USHA MERCEDES Insurance Providers Guarantor name: RAND SAMANIEGO Health Plan Information #: 1 Payer: [employer]: [employer]MENT EXAM Member Number: [id number] Policy Number: NA Group Number: NA Health Plan Information #: 2 Payer: [employer]: [employer]ED PA[employer]MENT EXAM Member Number: [id number] Policy Number: NA Group Number: NA
--- OUTSIDE RECORDS SUMMARY | 2024-02-23 17:18 | XMS_ITS ---
Author Organization [facility] madeleine Address [address] [place] [address] Care Team Providers Care Youth Nutritional Monitor Name Role Phone Esme Claudio Primary Care Provider Austin Rios Unavailable [phone] Tyler Bryant Unavailable [phone] REASON FOR VISIT f/u acp Encounters Encounter Location Date Provider Diagnosis [facility] [address] [place] [address] 02/20/2024 Tyler Bryant No Show or Late Cancel NS.LTCX Assessments Encounter Date Diagnosis (ICD Code) Assessment Notes Treatment Notes Treatment Clinical Notes 02/20/2024 No Show or Late Cancel (ICD-10 - NS.LTCX) Plan Of Treatment Next Appt Details Provider Name:Esme Goff [facility], 03/13/2024 02:15:00 PM, [address] [place], [address], Provider Name:Austin Rios, 0 03/30/2024 11:30:00 AM, [address] [place], [address], Progress Notes * RAND SAMANIEGODOB:1960 (63 yo F)Acc No.[id number]:02/20/2024 Patient:RAND CHÁVEZ Appointment Provider:?Ana Correa ICAC, MAOM, LMT :1960???Age:63 Y???Sex:Female D ate:02/20/2024 [address] Pcp:Esme Claudio Patient's Default Facility:[facility] Subjective: * Chief Complaints: * ???1. F/u acp. * Medical History:? Objective: * Vitals:? Assessment: * Assessment: 1.?No Show or Late Cancel - NS.LTCX (Primary)??? Plan: * Treatment: * Images: Billing Information: * Visit Code:? * Procedure Codes:? * Electronic signature of MENDEZ Diallo on 02/23/2024 at 05:18 PM EST Sign off status: Pending * Appointment Provider:?MENDEZ Escudero MAOM, LMT Date:?02/20/2024 Generated for Printing/Faxing/eTransmitting on:?02/23/2024 05:18 PM EST
[2024-02-23 17:19] VITALS: BP 145/91; PULSE 119; RESP 20; TEMP 36.8; O2SAT 99; BMI 34.0
--- OUTSIDE RECORDS SUMMARY | 2024-02-23 17:19 | XMS_ITS | Patient Health Record ---
Author Organization [facility] madeleine Address [address] [place] [address] Care Team Providers Care Rig Supervisor Name Role Phone Esme Claudio Primary Care Provider Austin Rios Unavailable [phone] Roseann Mulligan Unavailable [phone] Panfilo Guy Unavailable [phone] Ernie Sun Unavailable [phone] PetNess calhoun Unavailable [phone] Z[employer]igration, Provider Unavailable Unavailab Marya Koroma Unavailable [phone] Tyler Bryant Unavailable [phone] Allergies Allergen (clinical drug ingredient) Drug/Non Drug Allergy documented on EMR Reaction Allergy Type Onset Date Status acetaminophen / oxycodone Percocet itchy mouth, rash Drug Allergy Active Latex LATEX SENSITIVE (uncoded) when wearing gloves Allergy Active Results Component Value Reference Range Notes Rapid Strep Reviewed date:01/16/2024 02:52:20 PM Interpretation:Negative Performing Lab: Notes/Report: Negative Streptococcus Group A Cultur e ([id number] NOHO) Reviewed date:01/21/2024 08:29:15 AM Interpretation: Performing Lab:NL2, [facility] [id number] [place] Notes/Report: Received Date: [id number] NON-FASTING FASTING:UNKNOWN FASTING: UNKNOWN STREPTOCOCCUS, GROUP A CULTURE SEE NOTE STREPTOCOCCUS, GROUP A CULTURE Micro Number: [id number] Test Status: Final Specimen Source: Throat Specimen Quality: Adequate Result: No group A Streptococcus isolated rapid Flu Reviewed date:01/16/2024 03:15:25 PM Interpretation:Negative Performing Lab: Notes/Report: Negative Influenza A neg Influenza B neg COVID-19, RSV, FLU A/B PCR ( [id number] [facility]) Reviewed date:01/21/2024 08:28:55 AM Interpretation: Performing Lab:NL2, [facility] urSelf [id number] [facility] [place] Notes/Report: Received Date: FASTING FASTING:UNKNOWN FASTING: UNKNOWN INFLUENZA A RNA NOT DETECTED NOT DETECTED INFLUENZA B RNA NOT DETECTED NOT DETECTED RSV RNA NOT DETECTED NOT DETECTED SARS COV2 RNA NOT DETECTED NOT DETECTED A Not Detected (negative) test result for this test means that RNA from SARS-CoV-2, influenza A, influenza B and RSV was not present in the specimen above the limit of detection. However, it does not rule out the possibility of infection from SARS-CoV-2, influenza A, influenza B and/or RSV. Laboratory test results should always be considered in the context of clinical observations and epidemiological data in making a final diagnosis and patient management decisions. Methodology: Reverse toggle press folder and feeder polymerase chain reaction (RT-PCR). CT Heart W/O Dye Heber Eval Reviewed date:02/03/2024 05:54:19 PM Interpretation: Performing Lab: Notes/Report: CT Heart W/O Dye Heber Eval INDICATION: Reason: E78.5 HYPERLIPIDEMIA; Clinical Question(s): Other:. Female of age 63 years, race White COMPARISON: None TECHNIQUE: Coronary artery Calcium Scoring. After a localizing clinical services director image was obtained, an ECG-gated noncontrast exam was obtained of the heart in late diastole. The region of interest was limited to the heart in order to optimize image quality. Weight-based protocol using automatic tube modulation was used to optimize exposure parameters. A HealthSouk 64 scanner was used, with Agatston scoring performed using PacerPro (Pylba) web-based software. This procedure is not being performed on this patient for preoperative evaluation for low-risk surgery within [...] Agatston coronary calcium score is 0. WSN: [id number] Ordering Physician: Ness Winkler Dictated By: Malia Ruelas MD CT Heart W/O Dye Sherwin n Eval INDICATION: Reason: E78.5 HYPERLIPIDEMIA; Clinical Question(s): Other:. Female of age 63 years, rac e White COMPARISON: None TECHNIQUE: Coronary artery Calcium Scoring. After a localizing clinical services director image was obtained, an ECG-gat ed noncontrast exam was obtained of the heart in late diastole. The region of interest was limited to the heart in order to optimize image quality. Weight-based protocol using automatic tube modulation was used to optimize exposure parameters. A HealthSouk 64 scanner was used, with Agatston scoring performed using PacerPro (Pylba) web-based software. This procedure is not krzysztof ng performed on this patient for preoperative evaluation for low-risk surgery within 30 days. CTDIvol Body: 7.68 mGy, DLP Body: 100 mGy*cm. FINDINGS: Coronary Calcium Scoring Summary: Left Main: Score 0. LAD: Score 0. Circumflex: Score 0. Right: Score 0. TOTAL: Score 0 Non-coronary Finding s: Lungs are clear. Unremarkable chest wall. Normal size aorta. Normal size heart. No lymphadenopathy. Upper abdomen is unremarkable. No acute bony findings. IMPRESSION: The Agatston coronar y calcium score is 0. WSN: [id number] Ordering Physician: Ness Winkler Reason For Referral Reason Needs Rheumatology e valuation Diagnosis 1 Fatigue (R53.83) Diagnosis 2 Vomiting unspecified (R11.10) Diagnosis 3 Nausea with vomiting , unspecified (R11.2) Referral Organization [facility] actice Referring Provider First Name Roseann Referring Provider Last Name Ese [facility] Referred Provider [facility] Referred Provider Specialty Rheumatology General Notes Marya Catherine 05/30 03:02:07 PM EDT > NO AUTH REQUIRED FOR BCBS PPO, Referral faxed to: [phone] Clinical Notes Provider Name: Malena yin [facility] , Provider , Provider Speciality: Rheumatology , Address1: [address] , [facility], Zip: [place], [address] , , Referral Priority Routine Reason for CPAP adjustments ; pt with known JACKY without proper supplies Diagnosis 1 JACKY (G47.33) Referral Organization [facility] actice Referring Provider First Name Roseann Referring Provider Last Name Ese Referring Provider Speciality Family [place] ctice Referred Provider Sleep Medicine Serv[facility], [place] Referred Provider Specialty SLEEP MEDICI NE General Notes Marya Catherine 06/2023 01:56:41 PM > Referral faxed to: [phone] Clinical Notes Provider Name: Sleep Medicine Services, [place], Provider UPIN: NPI- Dr Anthony Velasquez, Provider , Address1: [address] [place] [address] [address], Address2: [facility] , [facility], Zip: [place], [address], , Referral Priority Routine Reason Needs Nephrology Con sult, 2nd HTN workup Diagnosis 1 HTN (I10) Referral Organization [facility] Pr actice Referring Provider First Name Roseann Referring Provider Last Name Ese Referring Provider Speciality Family [place] ctjose maria Referred Provider [facility], [facility] Referred Provider Specialty Nephrology General Notes Marya Catherine 07/2023 07:21:55 AM > referral faxed to: [phone] Clinical Notes Provider Name: [facility], [facility], Address1: [address], Zip: [place], [address], , Referral Priority Routine Medications Medication SIG (Take, Route, Frequency, Duration) Notes Start Date End Date Status Qvar RediHaler 80 MCG/ACT 1 puff(s) inha led 2 times a day for 90 days 06/11/2018 Active Ondansetron 4 MG 1 tab(s) orally ever y 8 hours for 30 days PRN Active amLODIPine Besylate 10 MG 1 tablet Orall y Once a day for 90 days 12/05/2023 Active PROzac 40 MG 1 cap(s) orally once a day for 90 days Active Cozaar 100 MG 1 tab(s) orally once a day for 90 days Active Fish Oil 2 capsules Orally on ce daily for 30 days Active Levothyroxine Sodium 100 MCG 1 tab(s) or ally once a day for 90 days Active Albuterol Sulfate HFA 108 (9 0 Base) MCG/ACT 2 puff(s) inhaled 4 times a day prn for 90 days prn 08/19/2017 Active Vitamin B Complex 1 PO QD Ac tive LORazepam 1 MG 1 tab(s) orally 1 times a day prn anxiety - sparing use for 90 days PRN 02/13/2024 Active hydroCHLOROthiazide 25 MG 1 tablet in th e morning Orally Once a day for 90 days 01/08/2024 Active Cyclobenzaprine HCl 10 MG 1 tab(s) orall y 3 times a day for 10 days PRN Active Nystatin 107426 UNIT/GM 1 application Externally Twice a day for 14 days PRN 09/11/2023 Active Flonase Allergy Relief 50 MCG/ACT 1 spray in each nostril Nasally Twice a day for 30 days 02/05/2024 Active Mupirocin 2 % 1 micah applied topically 3 times a day for 10 day(s) PRN 03/01/2023 Active Immunizations Vaccine Route Administration Date Status Comme nts Td vaccine, state Unknown 06/29/2004 Administered Fluzone Vaccine; History Unknown 12/16/2008 Administered H1N1 injection, history Unknown 12/28/2008 Administered Flu Vaccine; History Unknown 12/10/2009 Administered pt states she recieved the flu vaccine at work at today's office visit Flu Vaccine; History Unknown 12/14/2010 Administered Tdap Adacel,purchased IM Intramuscular 10/08/2011 Administered OFFICE PURCHAS ED Flu Vaccine; History Unknown 12/14/2011 Administered Flu Vaccine; History Unknown 01/15/2013 Administered Hepatitis B Vaccine; History Unknown 03/24/1991 Administered Hepatitis B Vaccine; History Unknown 05/23/1991 Administered Hepatitis B Vaccine; History Unknown 01/23/1992 Administered Hepatitis A adult, office purchased IM Intramuscular 01/22/2013 Administered vivotif (history) Unknown 02/08/2013 Administered yellow fever vaccine, history Unknown 02/25/2013 Administered Hep A Vaccine; History Unknown 03/28/2011 Administered Fluzone P, PF, pre-filled IM Intramuscular 03/23/2016 Administered COVID-19 Vaccine (Moderna), History Unknown 03/26/2020 Administered COVID-19 Vaccine (Moderna), History Unknown 04/23/2020 Administered COVID-19 Vaccine (Moderna), History Unknown 01/15/2021 Administered TDAP >7 PURCHASED (ADACEL) IM Intramuscular 07/19/2021 Administered SHINGRIX PURCHASED IM Intramuscular 07/19/2021 Administere d COVID Vacc BIVALENT 12+ Pfizer IM Intramuscular 12/20/2021 Administered FLUBLOK PURCHASED IM Intramuscular 12/20/2021 Administered SHINGRIX PURCHASED IM Intramuscular 07/24/2022 Administere d FLUBLOK PURCHASED IM Intramuscular 12/05/2023 Administered Problems Problem Type SNOMED Code ICD Code Onset Dates Problem Status W/U Status Risk Notes Problem Anxiety (finding) (09072369) Anxiety (unspecified) (F41.9) Active confirmed Problem Dysphagia (24005110) Dysphagia (R13.10) Active confirmed Problem Hyperlipidemia (27054526) Hyperlipidemia, unspecified (E78.5) Active confirmed Problem Exacerbation of asthma (368307576) Asthma exacerbation, unspecified type (J45.901) Active confirmed Problem Neck pain (74101096) Pain Neck (M54.2) Active confirmed Problem Vitamin D deficiency (04636908) Vitamin D deficiency, unspecified (E55.9) Active confirmed Problem Reactions to severe stress, other (F43.8) Active confirmed Problem Obstructive sleep apnea syndrome (39863555) JACKY (G47.33) Active confirmed Problem Allergic rhinitis (35807093) Allergic rhinitis, Other (J30.89) Active confirmed Problem Mild intermittent asthma (775021483) Asthma Mild intermittent, uncomplicated (J45.20) Active confirmed Problem Impaired fasting glucose (032468605) Impaired fasting glucose (R73.01) Active confirmed Problem C-reactive protein abnormal (186235950) Elevated C-reactive protein (CRP) (R79.82) Active confirmed Problem Attention deficit hyperactivity disorder (059273385) ADHD, unspecified type (F90.9) Active confirmed Problem Vitamin D deficiency (90154620) Vitamin D deficiency, unspecified (E55.9) Active confirmed Problem Fatigue (40914792) Fatigue (R53.83) Active conf irmed Problem Hypertension (63370235) HTN (I10) Active confirmed Problem Asthma (004232431) Asthma NOS (J45.998) Active confirmed Problem Hypothyroidism (32667107) Hypothyroidism, unspecified (E03.9) Active confirmed Problem Hot flashes (239248758) HOT FLASHES (N95.8) Active confirmed Problem Muscle pain (38303596) Myalgia, unspecified site (M79.10) Active confirmed Vital Signs Temperature 97.5 degrees Fahrenheit 02/05/2024 Oximetry 99 02/05/2024 Blood pressure diastolic 88 mm Hg 02/05/2024 Blood pressure systolic 140 mm Hg 02/05/2024 Weight 180 lbs 02/05/2024 Encounters Encounter Location Date Provider Diagnosis [facility] [address] [place] [address] 05/30/2023 Esme Claudio Pain back M54.89 and Pain Neck M54.2 [facility] [address] [place] [address] 06/06/2023 Esme hSanon Pain back M54.89 ; Pain Neck M54.2 and Pain hand, unspecified hand M79.643 [facility] [address] [place] [address] 09/24/2023 Esme Shanon Pain back M54.89 ; Pain Neck M54.2 and Pain hand, unspecified hand M79.643 [facility] [address] [place] [address] 12/19/2023 Haiying Manny Pain Neck M54.2 ; Pain wrist, left M25.532 ; Pain wrist, right M25.531 ; Pain hip, left M25.552 and Pain hip, right M25.551 [facility] [address] [place] [address] 12/26/2023 Haiying Manny Pain Neck M54.2 ; Pain wrist, left M25.532 ; Pain wrist, right M25.531 ; Pain hip, left M25.552 and Pain hip, right M25.551 [facility] [address] [place] [address] 01/08/2024 Haiying Agency Pain Neck M54.2 ; Pain wrist, left M25.532 ; Pain wrist, right M25.531 ; Pain hip, left M25.552 and Pain hip, right M25.[address] [address] 01/16/2024 Austin Rios Cough, unspecified R05.9 ; Asthma exacerbation, unspecified type J45.901 and Sore throat J02.[address] [address] 01/22/2024 Austin Rios Asthma exacerbation, unspecified type J45.901 and Cough, unspecified R05.9 [facility] [address] [place] [address] 02/13/2024 Tyler Bryant Pain Neck M54.2 ; Pain wrist, left M25.532 ; Pain wrist, right M25.531 ; Pain hip, left M25.552 ; Pain hip, right M25.551 ; Pain foot, left M79.672 and Pain foot, right M79.671 [facility] [address] [place] [address] 02/20/2024 Tyler Bryant No Show or Late Cancel NS.LTCX [facility] [address] [place] [address] 05/31/2023 Ernie Sun Fall on same level, unspecified, initial encounter W18.30XA ; Fall in (into) shower or empty bathtub, initial encounter W18.2XXA ; Unspecified injury of face, initial encounter S09.93XA ; HTN I10 and Fatigue R53.83 [facility] [address] [place] [address] 07/05/2023 Esme Claudio Pain hand, left M79.642 ; Pain hand, right M79.641 ; Pain Neck M54.2 and Pain back M54.89 [facility] [address] [place] [address] 07/19/2023 Carene Pettinger Asthma Mild intermittent, uncomplicated J45.20 ; Fatigue R53.83 ; HTN I10 ; Hypothyroidism, unspecified E03.9 ; ADHD, unspecified type F90.9 and Myalgia, unspecified site M79.10 [facility] [address] [place] [address] 08/02/2023 Esmeaustin Claudio Pain hand, left M79.642 ; Pain hand, right M79.641 ; Pain Neck M54.2 and Pain back M54.89 [facility] [address] [place] [address] 08/15/2023 Esmeaustin Claudio Pain hand, left M79.642 ; Pain hand, right M79.641 ; Pain Neck M54.2 and Pain back M54.89 [facility] [address] [place] [address] 09/01/2023 Provider [employer] ADHD, unspecified type F90.9 [facility] [address] [place] [address] 09/11/2023 Panfilo Malena Rash and other nonspecific skin eruption R21 and ADHD, unspecified type F90.9 [facility] [address] [place] [address] 10/25/2023 Esme Claudio Pain hand, left M79.642 ; Pain hand, right M79.641 ; Pain Neck M54.2 and Pain back M54.89 [facility] [address] [place] [address] 12/05/2023 Carene Pettinger HTN I10 ; Chest pain unspecified R07.9 ; Hyperlipidemia, unspecified E78.5 ; Hypothyroidism, unspecified E03.9 ; Asthma Mild intermittent, uncomplicated J45.20 and Encounter for immunization Z23 [facility] [address] [place] [address] 01/01/2024 Marya Paris HTN I10 and ADHD, unspecified type F90.9 [facility] [address] [place] [address] 01/03/2024 Esme Claudio Pain hand, left M79.642 ; Pain hand, right M79.641 ; Pain Neck M54.2 and Pain back M54.89 [facility] [address] [place] [address] 01/08/2024 Carene Pettinger Hyperlipidemia, unspecified E78.5 ; Dyspnea, unspecified R06.00 ; Elevated C-reactive protein (CRP) R79.82 ; HTN I10 ; Asthma Mild intermittent, uncomplicated J45.20 ; ADHD, unspecified type F90.9 and Prediabetes R73.03 [facility] [address] [place] [address] 01/13/2024 Caresoren Durantinger JACKY G47.33 [facility] [address] [place] [address] 02/05/2024 Carene Pettinger Hyperlipidemia, unspecified E78.5 ; HTN I10 ; Hypothyroidism, unspecified E03.9 ; Allergic rhinitis, Other J30.89 ; Anxiety (unspecified) F41.9 ; Myalgia, unspecified site M79.10 ; Elevated C-reactive protein (CRP) R79.82 and Prediabetes R73.03 [facility] [address] [place] [address] 11/04/2023 Roseann Mulligan [facility] [address] [place] [address] 02/28/2023 Esme Claudio Rash NOS R21 [facility] [address] [place] [address] 03/01/2023 Esme Claudio [facility] [address] [place] [address] 03/06/2023 Esme Claudio [facility] [address] [place] [address] 04/17/20[address] [facility] [address] [place] [address] 05/29/2023 Roseann Mulligan [facility] [address] [place] [address] 05/31/2023 Ernie Sun [facility] [address] [place] [address] 06/19/2023 Esme Claudio [facility] [address] [place] [address] 08/12/2023 Esme Claudio [facility] [address] [place] [address] 08/15/2023 Roseann Mulligan ADHD, unspecified type F90.9 [facility] [address] [place] [address] 11/21/2023 Roseann Mulligan ADHD, unspecified type F90.9 [facility] [address] [place] [address] 12/05/2023 Carene Pettinger [facility] [address] [place] [address] 12/05/2023 Carene Pettinger Hyperlipidemia unspecified E78.5 and Chest pain unspecified R07.9 [facility] [address] [place] [address] 12/05/2023 Roseannargelia Mulligan HTN I10 [facility] [address] [place] [address] 12/12/2023 Carene Pettinger HTN I10 [facility] [address] [place] [address] 12/18/2023 Roseann Ese HTN I10 and Fatigue R53.83 [facility] [address] [place] [address] 12/23/2023 Roseann Mulligan [facility] [address] [place] [address] 01/01/2024 Marya Paris [facility] [address] [place] [address] 01/08/2024 Carene Pettinger [facility] [address] [place] [address] 01/08/2024 Carene Pettinger [facility] [address] [place] [address] 01/08/2024 Carene Pettinger [facility] [address] [place] [address] 01/09/2024 Carene Pettinger ADHD, unspecified type F90.9 [facility] [address] [place] [address] 01/13/2024 Carene Pettinger [facility] [address] [place] [address] 01/16/2024 Austin Rios [facility] [address] [place] [address] 02/21/2024 Austin Rios Myalgia, unspecified site M79.10 [facility] [address] [place] [address] 02/28/2023 Roseannargelia Mulligan ADHD, unspecified type F90.9 ; Fatigue, other R53.83 ; Hypothyroidism, unspecified E03.9 ; Fatigue R53.83 and Rash NOS R21 [facility] [address] [place] [address] 04/09/2023 Carene Pettinger ADHD, unspecified type F90.9 and HTN I10 [facility] [address] [place] [address] 05/25/2023 Carene Pettinger Hypothyroidism, unspecified E03.9 and ADHD, unspecified type F90.9 [facility] [address] [place] [address] 11/21/2023 Roseann Mulligan [facility] [address] [place] [address] 11/26/2023 Roseann Mulligan ADHD, unspecified type F90.9 [facility] [address] [place] [address] 12/05/2023 Roseann Mulligan Fatigue R53.83 and Asthma Mild intermittent, uncomplicated J45.20 [facility] [address] [place] [address] 12/20/2023 [facility] [address] [place] [address] 12/20/2023 Carene Pettinger [facility] [address] [place] [address] 12/20/2023 Carene Pettinger HTN I10 [facility] [address] [place] [address] 02/12/2024 Austin Gabriel Hypothyroidism, unspecified E03.9 ; HTN I10 ; Anxiety (unspecified) F41.9 ; Myalgia, unspecified site M79.10 and Allergic rhinitis, Other J30.89 Assessments Encounter Date Diagnosis (ICD Code) Assessment Notes Treatment Notes Treatment Clinical Notes 05/30/2023 Pain back (ICD-10 - M54.89) Tension in bilateral paraspinals in lumbar and thoracic regions. Tension bilateral QL. Tension L>R traps. Patient commented that she felt some relief in her abdomen from back massage. 06/06/2023 Pain back (ICD-10 - M54.89) tension bilateral ESG lumbar and lower thoracic. Tension R>L upper back 06/06/2023 Pain Neck (ICD-10 - M54.2) Tension L>R cervical paraspinals and lev scap. 09/24/2023 Pain back (ICD-10 - M54.89) Tension bilateral QL, thoracolumbar paraspinals, traps and rhomboids. 09/24/2023 Pain Neck (ICD-10 - M54.2) Hypertonic R upper trap, Tension L>R anterior scalenes, lev scap, SCM 12/19/2023 Pain Neck (ICD-10 - M54.2) see pain wrist 12/19/2023 Pain wrist, left (ICD-10 - M25.532) Treatment/Needle Set 1:Points: 2 groups EA: VW84-XE6 Bi KD3, SP6, 8 10 [id number] minutes face to face with patient for set 1 Treatment/Needle Set 2:Points: Bi ST25, AN SARA, CV6, 12, GV20, SI TORRES RAJINDER 11 needles 10 minutes face to face with patient for set 2 Treatment/needle set3: points: Bi LI11,4,5, LU6, TW4 10 needlesNeedles were retained for 45 minutes _# of needles inserted: 31_# of needles withdrawn:31 Adjunct techniques used: 1. infrared therapy:1) [employer] Soft Mesh Far Infrared Heating Pad with Tatiana & Tourmaline Gemstones on the table2) Okyna 275 Near Infrared Lamp on lower legs Cupping/Sliding cupping on: none Manual Tui Na on: left side forearm and wrist Gua Sha on: none Patient tolerated the procedure well. Comments and response to care: Test patient hands grabbing strength after session: more strength w/ less pain in bi thumb joints 12/26/2023 Pain Neck (ICD-10 - M54.2) see pain wrist 01/08/2024 Pain Neck (ICD-10 - M54.2) see pain wrist 01/16/2024 Cough, unspecified (ICD-10 - R05.9) see above 01/16/2024 Asthma exacerbation, unspecified type (ICD-10 - J45.901) concern for asthma exacerbation secondary to possible PNA given presentation and local rates of PNA. Will begin prednisone and antibiotic regimen in conjuction with her inhalers. Patient has pulse ox at home for close monitoring. pt aware of severe symptoms to monitor for which would require ED evaluation immediately. Advised on need for close follow up in coming days, call back sooner if any questions/concerns 01/22/2024 Asthma exacerbation, unspecified type (ICD-10 - J45.901) finish course of prednisone taper as prescribed. Use inhalers as discussed. Much improved, lungs clear on exam. Patient will monitor closely and call back if any concerns. Has upcoming follow up sched already 01/22/2024 Cough, unspecified (ICD-10 - R05.9) see above, significant improvement with treatment 02/13/2024 Pain Neck (ICD-10 - M54.2) see pain wrist 02/13/2024 Pain wrist, left (ICD-10 - M25.532) Treatment/Needle Set 1:Points: Bi LV3, KD3, HT6, HT1, KD22 CV15, 16, 12 Spencer checking pulse while needling LV3, KD3, HT1,CV15 and manipulating the needles until the pulse calm down35 minutes face to face with patient for set 1 Treatment/Needle Set 2:Points: Bi ST28, LI4, LV14,GB26, SP21 CV3,4, 6,9,23, YIN MEDEROS 16 needles 10 minutes face to face with patient for set 2 Spencer were retained for 45 minutes _# of needles inserted:28_# of needles withdrawn: 28 Adjunct techniques used: 1. infrared therapy:1) [employer] Soft Mesh Far Infrared Heating Pad with Tatiana & Tourmaline Gemstones on the tableCupping/Sliding cupping on: none Manual Tui Na on: NONE Gua Sha on: none Patient tolerated the procedure well. 02/20/2024 No Show or Late Cancel (ICD-10 - NS.LTCX) 05/31/2023 Fall on same level, unspecified, initial encounter (ICD-10 - W18.30XA) pt notes her bath math and other mat were not in place, which is not usual. She had no LOC, no red flags to exam, headache minor and improved. Discussed future safety. 05/31/2023 Fall in (into) shower or empty bathtub, initial encounter (ICD-10 - W18.2XXA) 07/05/2023 Pain hand, left (ICD-10 - M79.642) 1. infrared therapy: 1) [employer]Line Soft Mesh Far Infrared Heating Pad with Tatiana & Tourmaline Gemstones on the table 2) Okyna 275 Near Infrared Lamp on Bi-thumb joints, neck and lower back 2. Cupping Therapy: cupping on lower back, upper back 3. Gua Sha Therapy: scraping on neck, back, thumb joints and forearms 4. moderate pressure massage on neck, head, back, hands and forearms Patient demonstrates relaxed body and less pain in the back, neck, thumb joints in today's session. Gentle self-care taught as a way to maintain benefits of today's treatment, and patient is verbalizing a good understanding of the plan. Patient will seek medical assessment for new symptoms of concern, including any new numbness/tingling or new weakness. 07/05/2023 Pain hand, right (ICD-10 - M79.641) see pain hand left notes 07/19/2023 Asthma Mild intermittent, uncomplicated (ICD-10 - J45.20) No recent concerns 07/19/2023 Fatigue (ICD-10 - R53.83) Rand is doing well over-all. No concerns expressed. Taking all medications as prescribed, no side effects. Refillls sent to pharmacy 08/02/2023 Pain hand, left (ICD-10 - M79.642) 1. infrared therapy: 1) HealthyLine Soft Mesh Far Infrared Heating Pad with Tatiana & Tourmaline Gemstones on the table 2) Okyna 275 Near Infrared Lamp on Bi-thumb joints and left elbow 2. Gua Sha Therapy: scraping on neck, back, forearms 3. moderate pressure massage on most part of her body, focus on neck, back and forearms, hands, wrists Patient demonstrates relaxed body and less pain (4/10) in the thumb joints in today's session. Gentle self-care taught as a way to maintain benefits of today's treatment, and patient is verbalizing a good understanding of the plan. Patient will seek medical assessment for new symptoms of concern, including any new numbness/tingling or new weakness. 08/15/2023 Pain hand, left (ICD-10 - M79.642) 1. infrared therapy: 1) [employer]Line Soft Mesh Far Infrared Heating Pad with Tatiana & Tourmaline Gemstones on the table 2) Okyna 275 Near Infrared Lamp on Bi-hand and elbows, thighs, shoulder 2. Gua Sha Therapy: scraping on neck, upper back 3. moderate pressure massage on most part of her body, focus on neck, back and forearms,and shoulders Patient demonstrates relaxed body in today's session. Gentle self-care taught as a way to maintain benefits of today's treatment, and patient is verbalizing a good understanding of the plan. Patient will seek medical assessment for new symptoms of concern, including any new numbness/tingling or new weakness. 09/01/2023 ADHD, unspecified type (ICD-10 - F90.9) 09/11/2023 Rash and other nonspecific skin eruption (ICD-10 - R21) Fungal rash. will send Nystatin cream MOA, s/e and proper use explained. will continue to monitor. Call if notices it changes in size, and if it becomes bothersome. The patient is verbally expressing a good comprehension of the plan of care and agrees with it 10/25/2023 Pain hand, left (ICD-10 - M79.642) 1. infrared therapy: 1) HealthyLine Soft Mesh Far Infrared Heating Pad with Tatiana & Tourmaline Gemstones on the table 2. massage on whole body, focus on feet, hands and thumbs Patient demonstrates relaxed body in today's session. Gentle self-care taught as a way to maintain benefits of today's treatment, and patient is verbalizing a good understanding of the plan. Patient will seek medical assessment for new symptoms of concern, including any new numbness/tingling or new weakness. 12/05/2023 HTN (ICD-10 - I10) Rand reports elevated BP readings since yesterday as above in HPI. She has been stressed at work.Discussed changes in her BP meds. We will keep the Cozar but will also add a calcium-channel kala, Amlodipine to control her BP. MOA, s/e and proper use explained. Continue checking home BP and if persistently >150/100 RTO, ED PRN red flag s/sxs 12/05/2023 Chest pain unspecified (ICD-10 - R07.9) Elevated BP and sx as above. We discussed BP mgmt as below and due to sx/episode as above we discussed echo and stress test to check for any cardiac abnormality.We talked about CAC, pt agrees and labs to check chol, renal function, etcEKG done on 12/03/2023 Normal sinus rhythm with 96 bpm. ED PRN red flag s/sx. FU 1 mo/sooner prn 01/01/2024 HTN (ICD-10 - I10) will increase the Amlodipine to 10mg 1 tablet once a day cont cozaar 100 mg/day We know that starting as low as 115/75 mmHg, the risk of heart attack and stroke doubles for every 20-point jump in systolic blood pressure or every 10-point rise in diastolic blood pressure for adults aged 40-70. Work on lifestyle goals. Limit sodium to 2000 mcg a day. Untreated high blood pressure increases the strain on the heart and arteries, eventually causing organ damage. High blood pressure increases the risk of heart failure, heart attack (myocardial infarction), stroke, and kidney failure. https://www.heart.or g/en/health-topics/h vuj-ndvgq-wglseejs/h qwqbl-ajhjmlc-faqn-h mat-mpsoz-swengzxi https://www.[facility] instituteNJOY .org/diseases-cond itions/txob-yqoig-ct essure/in-depth/high -blood-pressure/art- ... Eat plenty of fruits, vegetables, whole grains, fish, and low-fat dairy. Studies show high blood pressure can be lowered and prevented with the DASH diet. This diet is low in sodium and high in potassium, magnesium, calcium, protein, and fiber. https://www.[facility] institute[facility] ic.org/healthy-lifes tyle/vvafwdqac-nbd-m ealthy-eating/in-dep /dash-diet/art-200 ... https://www.[employer] ic.org/healthy-lifes tyle/ewcofskqs-rmy-f ealthy-eating/in-dep /dash-diet/art-200 ... Low blood pressure, also known as hypotension, can have a number of symptoms. If these occur, call your pcp. Dizziness or lightheadedness Blurry vision Fainting Confusion Nausea or vomiting Weakness Sleepiness Headache Neck or back pain Heart palpitations 01/01/2024 ADHD, unspecified type (ICD-10 - F90.9) Will send Strattera 25mg 1 capsule twice a day 01/03/2024 Pain hand, left (ICD-10 - M79.642) 1. infrared therapy: 1) [employer]Line Soft Mesh Far Infrared Heating Pad with Tatiana & Tourmaline Gemstones on the table 2. massage on whole body, focus on back, left hip Patient demonstrates relaxed body in today's session. Gentle self-care taught as a way to maintain benefits of today's treatment, and patient is verbalizing a good understanding of the plan. Patient will seek medical assessment for new symptoms of concern, including any new numbness/tingling or new weakness. 01/08/2024 Hyperlipidemia, unspecified (ICD-10 - E78.5) 10-year risk of ASCVD = 6.1% LDL 160 Per the 2013 [place] [employer] [employer] (ACC/AHA) guideline on the management of blood cholesterol, treatment with jktoxibc-cq-wtlz intensity statin therapy is recommended for individuals with an estimated 10-year CVD risk > or = to 7.5 percent. Per the 2013 [place] [employer]/[place] [employer] (ACC/AHA) guideline on the treatment of blood cholesterol, it is reasonable to offer treatment with moderate-intensity statin therapy to those with an estimated 10-year CVD risk between 5.0 and 7.5 percent. This guideline is validated in adults ages 40 to 75 without CVD and with LDL-C between 70 - 189 mg/dL. Discussed w pt-- wants to do CAC first. This is pending. 01/08/2024 Dyspnea, unspecified (ICD-10 - R06.00) We discussed resolution of previous sx but ongoing SOB, sometimes with exertion. Has asthma hx but this has been well controlled. ETT inconclusive, will do nuclear stress test. See TE. Elevated chol as below--see below. FU 1 mo. ED PRN red flag s/sx. 01/13/2024 JACKY (ICD-10 - G47.33) JACKY presents an additional risk factor for CV disease. We discussed need for her to get fully operating machine--will send ref for her to see [facility] sleep med to be adjusted etc. JACKY's impact on CVD appears to be due to recurrent cardio metabolic perturbations experienced when repetitively attempting to breath against an occluded airway, precipitating nightly episodes of hypoxia, sleep disturbance, and sympathetic nervous system surges, culminating in elevated blood pressure and heart rate, endothelial dysfunction, systemic inflammation and insulin resistance-all mechanisms involved in the pathogenesis of CVD. Accumulating evidence has linked JACKY to multiple cardiovascular disorders including hypertension, type 2 DM, coronary artery disease, heart failure and cardiac arrhythmias. 02/05/2024 Hyperlipidemia, unspecified (ICD-10 - E78.5) Nuclear stress test scheduled on 04/06/2024, she is on cancellation list as well CAC 0. 10-year risk of ASCVD = 6.1% LDL 160 She decided to hold off on STATIN and proceed w further investigation Focus on mindful diet/ Many foods and spices have antinflammatory effects including tumeric, cinnamon, berries, leafy greens, flax seeds. [employer]Pax[employer].org is an excellent resource for information about dietary modifications to reduce inflammation and enhance athletic performance. Engage in at least 150 to 300 minutes weekly (spaced throughout the week) of moderate-intensity aerobic exercise and at least 2 days weekly of muscle-strengthening exercises. FU in 2 mo or sooner PRN. ED PRN red flag s/sx. 02/28/2023 Rash NOS (ICD-10 - R21) 08/15/2023 ADHD, unspecified type (ICD-10 - F90.9) 11/21/2023 ADHD, unspecified type (ICD-10 - F90.9) 12/05/2023 Hyperlipidemia unspecified (ICD-10 - E78.5) 12/05/2023 Chest pain unspecified (ICD-10 - R07.9) 12/05/2023 HTN (ICD-10 - I10) 12/12/2023 HTN (ICD-10 - I10) 12/18/2023 HTN (ICD-10 - I10) 01/09/2024 ADHD, unspecified type (ICD-10 - F90.9) 02/21/2024 Myalgia, unspecified site (ICD-10 - M79.10) 02/28/2023 ADHD, unspecified type (ICD-10 - F90.9) 04/09/2023 ADHD, unspecified type (ICD-10 - F90.9) 05/25/2023 Hypothyroidism, unspecified (ICD-10 - E03.9) 11/26/2023 ADHD, unspecified type (ICD-10 - F90.9) 12/05/2023 Fatigue (ICD-10 - R53.83) 12/20/2023 HTN (ICD-10 - I10) 02/12/2024 Hypothyroidism, unspecified (ICD-10 - E03.9) 05/30/2023 Pain Neck (ICD-10 - M54.2) Tension L>R cervcal paraspinals. Patient is left handed. Tension at CT junction on R>L 06/06/2023 Pain hand, unspecified hand (ICD-10 - M79.643) Tension in extensors and flexors of the wrist. Bilat tension in thenar eminance. Demo'd gua sha. 09/24/2023 Pain hand, unspecified hand (ICD-10 - M79.643) Tension bilateral flexors and extensors of the wrist, hypertonic muscles in bilat thenar eminance 12/19/2023 Pain wrist, right (ICD-10 - M25.531) see pain wrist 12/26/2023 Pain wrist, left (ICD-10 - M25.532) Treatment/Needle Set 1:Points: 2 groups EA: [id number] Bi LV3, SP4.6, 8 12 Vuizpuy05 minutes face to face with patient for set 1 Treatment/Needle Set 2:Points: Bi ST25,21, AN SARA, li4 CV6, 9, 12, 17, 19,21, 23, GV20, SI TORRES RAJINDER L LI5,LU10, LU8, 3, HT7, TW13 R LI11 27 needles 10 minutes face to face with patient for set 2 Spencer were retained for 45 minutes _# of needles inserted: 39_# of needles withdrawn:39 Adjunct techniques used: 1. infrared therapy:1) [employer] Soft Mesh Far Infrared Heating Pad with Tatiana & Tourmaline Gemstones on the table2) Okyna 275 Near Infrared Lamp on lower legs Cupping/Sliding cupping on: none Manual Tui Na on: none Gua Sha on: none Patient tolerated the procedure well. Comments and response to care: Test patient hands grabbing strength after session: more strength w/ less pain in bi thumb joints 01/08/2024 Pain wrist, left (ICD-10 - M25.532) Treatment/Needle Set 1:Points: Bi LV2, ST44, GB43 6 Sspntlb12 minutes face to face with patient for set 1 Treatment/Needle Set 2:Points: Bi BL32,33, GB30, VICKIE JI L4, L5, BL 17,18,19, 10, LI4, Ear Deonte L LU10,PC8, SI4, Marli point medial to LU9 GV4, Windy Qi zhui johnny 28 needles 10 minutes face to face with patient for set 2 Treatment/needles set 3 points: Bi ST36, GB26, L SP6, R KD3, CV4, 12 8 Spencer 15 min face to face with patient for set 3 Spencer were retained for 45 minutes _# of needles inserted:42_# of needles withdrawn: 42 Adjunct techniques used: 1. infrared therapy:1) [employer]Line Soft Mesh Far Infrared Heating Pad with Tatiana & Tourmaline Gemstones on the table2) Independent IP 275 Near Infrared Lamp on lower legs Cupping/Sliding cupping on: none Manual Tui Na on: left wrist and palm Gua Sha on: none Patient tolerated the procedure well. 01/16/2024 Sore throat (ICD-10 - J02.9) pharynx clear, rapid strep neg. suspect secondary to the frequent cough 02/13/2024 Pain wrist, right (ICD-10 - M25.531) see pain wrist 05/31/2023 Unspecified injury of face, initial encounter (ICD-10 - S09.93XA) The provider will continue monitoring the patient's blood pressure and head injury. The patient is advised to continue using cyclobenzaprine for muscle pain and may use myke-uve-kbnpdqr pain relievers like Advil or Naproxen, ensuring she takes them with food. The provider will arrange for a rheumatology referral at the [facility] in [place], accompanying it with the infectious disease doctor's note. The patient has a follow-up appointment scheduled with her primary provider, Roseann, next month. 07/05/2023 Pain Neck (ICD-10 - M54.2) see pain hand left notes 07/19/2023 HTN (ICD-10 - I10) BP in good range at home, continue to cehck BP at home and instructed to call office if home BP regularly > 140/90 or less than 100/60. No medication changes. If >180/120 or with red flag s/sx then ED. 08/02/2023 Pain hand, right (ICD-10 - M79.641) see pain hand left notes 08/15/2023 Pain hand, right (ICD-10 - M79.641) see pain hand left notes 09/11/2023 ADHD, unspecified type (ICD-10 - F90.9) she is stable on her current dose, will continue current treatment regimen. 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 -discussed CHL but will hold off and first do above. 01/03/2024 Pain hand, right (ICD-10 - M79.641) see pain hand left notes 01/08/2024 Elevated C-reactive protein (CRP) (ICD-10 - R79.82) elevated HSCRP x2 : 12/05 19.5; 12/18 14.1 02/05/2024 HTN (ICD-10 - I10) ? secondary HTN--waiting for nephrology will do a renal US and workup with Dr. Castro on 02/27/2024 12/18/2023 Fatigue (ICD-10 - R53.83) 02/28/2023 Fatigue, other (ICD-10 - R53.83) 04/09/2023 HTN (ICD-10 - I10) 05/25/2023 ADHD, unspecified type (ICD-10 - F90.9) 12/05/2023 Asthma Mild intermittent, uncomplicated (ICD-10 - J45.20) 02/12/2024 HTN (ICD-10 - I10) 12/19/2023 Pain hip, left (ICD-10 - M25.552) see pain wrist 12/26/2023 Pain wrist, right (ICD-10 - M25.531) see pain wrist 01/08/2024 Pain wrist, right (ICD-10 - M25.531) see pain wrist 02/13/2024 Pain hip, left (ICD-10 - M25.552) see pain wrist 05/31/2023 HTN (ICD-10 - I10) rechecked with large cuff, above goal, but much better than initial, ctm 07/05/2023 Pain back (ICD-10 - M54.89) see pain hand left notes 07/19/2023 Hypothyroidism, unspecified (ICD-10 - E03.9) 08/02/2023 Pain Neck (ICD-10 - M54.2) see pain hand left notes 08/15/2023 Pain Neck (ICD-10 - M54.2) see pain hand left notes 10/25/2023 Pain Neck (ICD-10 - M54.2) see pain hand left notes 12/05/2023 Hypothyroidism, unspecified (ICD-10 - E03.9) due for labs 01/03/2024 Pain Neck (ICD-10 - M54.2) see pain hand left notes 01/08/2024 HTN (ICD-10 - I10) Amlodipine increased to 10mg on 12/31 and losartan 100 mg but BP still high to date. Discussed add on HCTZ for triple therapy. Ref to nephrology? Will first dw team. See TE. 02/05/2024 Hypothyroidism, unspecified (ICD-10 - E03.9) Pt wants a refill of her meds. Rx sent to pharmacy 02/28/2023 Hypothyroidism, unspecified (ICD-10 - E03.9) 02/12/2024 Anxiety (unspecified) (ICD-10 - F41.9) 12/19/2023 Pain hip, right (ICD-10 - M25.551) see pain wrist 12/26/2023 Pain hip, left (ICD-10 - M25.552) see pain wrist 01/08/2024 Pain hip, left (ICD-10 - M25.552) see pain wrist 02/13/2024 Pain hip, right (ICD-10 - M25.551) see pain wrist 05/31/2023 Fatigue (ICD-10 - R53.83) referral sent, based on ID note and hx with pcp 07/19/2023 ADHD, unspecified type (ICD-10 - F90.9) Patient reports ADHD medications working well, no s/e or AE (including insomnia, irritability, increased impulsivity, loss of appetite, weight change, BED sx, cardiac symptoms, crash, or neurological sequelae such as tics or twitches). Non pharm therapies reviewed as well such as exercise, osiel in AM; regular sleep and routines; Avoidance of MJ, ETOH and other recreational drugs; and mindfulness practice. 08/02/2023 Pain back (ICD-10 - M54.89) see pain hand left notes 08/15/2023 Pain back (ICD-10 - M54.89) see pain hand left notes 10/25/2023 Pain back (ICD-10 - M54.89) see pain hand left notes 12/05/2023 Asthma Mild intermittent, uncomplicated (ICD-10 - J45.20) Does not seem related, due to normal pulm exam/although recent covid is a factor. Will first investigate cardiac etiology as above 01/03/2024 Pain back (ICD-10 - M54.89) see pain hand left notes 01/08/2024 Asthma Mild intermittent, uncomplicated (ICD-10 - J45.20) Does not seem related, due to normal pulm exam/although recent covid is a factor. Will first investigate cardiac etiology as above 02/05/2024 Allergic rhinitis, Other (ICD-10 - J30.89) 02/28/2023 Fatigue (ICD-10 - R53.83) 02/12/2024 Myalgia, unspecified site (ICD-10 - M79.10) 12/26/2023 Pain hip, right (ICD-10 - M25.551) see pain wrist 01/08/2024 Pain hip, right (ICD-10 - M25.551) see pain wrist 02/13/2024 Pain foot, left (ICD-10 - M79.672) 07/19/2023 Myalgia, unspecified site (ICD-10 - M79.10) No current concerns 12/05/2023 Encounter for immunization (ICD-10 - Z23) 01/08/2024 ADHD, unspecified type (ICD-10 - F90.9) Discussed w [facility] at prev visit -- RX resent. 02/05/2024 Anxiety (unspecified) (ICD-10 - F41.9) 02/05/2024 Myalgia, unspecified site (ICD-10 - M79.10) 02/28/2023 Rash NOS (ICD-10 - R21) 02/12/2024 Allergic rhinitis, Other (ICD-10 - J30.89) 02/13/2024 Pain foot, right (ICD-10 - M79.671) 01/08/2024 Prediabetes (ICD-10 - R73.03) A1C 5.8% 02/05/2024 Elevated C-reactive protein (CRP) (ICD-10 - R79.82) elevated HSCRP x2 : 12/05 19.5; 12/18 14.1 02/05/2024 Prediabetes (ICD-10 - R73.03) A1C 5.8% Lifestyle rec as above 05/30/2023 Other Medical massage techniques may include MFR, Tigger point therapy, circulation massage, gua sha, cupping and other modalities to address patients CC 40 minutes was spent in the care of this patient which included chart review, history from the patient, physical assessment, manual therapy, education, answering patients questions and documentation 06/06/2023 Other Medical massage techniques may include MFR, Tigger point therapy, circulation massage, gua sha, cupping and other modalities to address patients CC 40 minutes was spent in the care of this patient which included chart review, history from the patient, physical assessment, manual therapy, education, answering patients questions and documentation 09/24/2023 Other Medical massage techniques may include MFR, Tigger point therapy, circulation massage, gua sha, cupping and other modalities to address patients CC 40 minutes was spent in the care of this patient which included chart review, history from the patient, physical assessment, manual therapy, education, answering patients questions and documentation 11/06/2023 Other [facility] flow sheet reveiwed and updated 12/19/2023 Other Patient presents with signs and symptoms consistent with the diagnosis. Patient would benefit from acupuncture therapy to address listed deficiencies and return to prior level of function (PLOF). Patient was educated on symptoms, prognosis, plan of care and activity modifications. Patient verbalized understanding and agreed to begin care. Extended visit of greater than 55 minutes (consult and education 15 min, acupuncture needling greater than 40 min) was had with patient face to face in [facility] office. Consult and education time includes: 1)Previsit visit time: review patient acupuncture intake form, history of [place] medical conditions on file (EHR), imaging, lab results, sometime discussion with patient's PCP, 2) During visit time: intake and examination, palpation, consultation; 3)Post visit time: record clinic notes, sometime discussion with patient's PCP. Clean Needle Technique (CNT) is used in every treatment. Ygwg-sk-jroj time includes day-to-day evaluation, hand washing, choosing and cleaning points, inseting and manipulating needles, monitoring, removal, and disposal of needles, and completion of the chart notes with patient present. 12/26/2023 Other Patient presents with signs and symptoms consistent with the diagnosis. Patient would benefit from acupuncture therapy to address listed deficiencies and return to prior level of function (PLOF). Patient was educated on symptoms, prognosis, plan of care and activity modifications. Patient verbalized understanding and agreed to begin care. Extended visit of greater than 55 minutes (consult and education 15 min, acupuncture needling greater than 40 min) was had with patient face to face in [facility] office. Consult and education time includes: 1)Previsit visit time: review patient acupuncture intake form, history of western medical conditions on file (EHR), imaging, lab results, sometime discussion with patient's PCP, 2) During visit time: intake and examination, palpation, consultation; 3)Post visit time: record clinic notes, sometime discussion with patient's PCP. Clean Needle Technique (CNT) is used in every treatment. Agjb-pk-mihp time includes day-to-day evaluation, hand washing, choosing and cleaning points, inseting and manipulating needles, monitoring, removal, and disposal of needles, and completion of the chart notes with patient present. 01/08/2024 Other Patient presents with signs and symptoms consistent with the diagnosis. Patient would benefit from acupuncture therapy to address listed deficiencies and return to prior level of function (PLOF). Patient was educated on symptoms, prognosis, plan of care and activity modifications. Patient verbalized understanding and agreed to begin care. Extended visit of greater than 55 minutes (acupuncture needling greater than 45 min) was had with patient face to face in [facility] office. Consult and education time includes: 1)Previsit visit time: review patient acupuncture intake form, history of western medical conditions on file (EHR), imaging, lab results, sometime discussion with patient's PCP, 2) During visit time: intake and examination, palpation, consultation; 3)Post visit time: record clinic notes, sometime discussion with patient's PCP. Clean Needle Technique (CNT) is used in every treatment. Puvb-wo-bxbe time includes day-to-day evaluation, hand washing, choosing and cleaning points, inseting and manipulating needles, monitoring, removal, and disposal of needles, and completion of the chart notes with patient present. 02/13/2024 Other Patient presents with signs and symptoms consistent with the diagnosis. Patient would benefit from acupuncture therapy to address listed deficiencies and return to prior level of function (PLOF). Patient was educated on symptoms, prognosis, plan of care and activity modifications. Patient verbalized understanding and agreed to begin care. Extended visit of greater than 55 minutes (acupuncture needling greater than 45 min) was had with patient face to face in [facility] office. Consult and education time includes: 1)Previsit visit time: review patient acupuncture intake form, history of western medical conditions on file (EHR), imaging, lab results, sometime discussion with patient's PCP, 2) During visit time: intake and examination, palpation, consultation; 3)Post visit time: record clinic notes, sometime discussion with patient's PCP. Clean Needle Technique (CNT) is used in every treatment. [id number] time includes day-to-day evaluation, hand washing, choosing and cleaning points, inseting and manipulating needles, monitoring, removal, and disposal of needles, and completion of the chart notes with patient present. 07/05/2023 Other Extended visit of greater than 40 minutes was had with patient face to face under the supervision of Esme Claudio MD. Greater than half the visit was spent in counselling and education regarding the patient's physical well being with training for future improved posture as described above. 08/02/2023 Other Extended visit of greater than 40 minutes was had with patient face to face under the supervision of Esme Claudio MD. Greater than half the visit was spent in counselling and education regarding the patient's physical well being with training for future improved posture as described above. 08/15/2023 Other Extended visit of greater than 40 minutes was had with patient face to face under the supervision of Esme Claudio MD. Greater than half the visit was spent in counselling and education regarding the patient's physical well being with training for future improved posture as described above. 10/25/2023 Other Extended visit of greater than 40 minutes was had with patient face to face under the supervision of Esme Claudio MD. Greater than half the visit was spent in counselling and education regarding the patient's physical well being with training for future improved posture as described above. 01/01/2024 Other Pt did her bw a [facility]. We do not have results. She is going to have them faxed to us. 01/03/2024 Other Extended visit of greater than 40 minutes was had with patient face to face under the supervision of Esme Claudio MD. Greater than half the visit was spent in counselling and education regarding the patient's physical well being with training for future improved posture as described above 01/08/2024 Other 45 minutes spe nt reviewing and prepping chart, patient visit/education, and completing chart. Plan Of Treatment Pending Test Test Name Order Date X ray : Chest PA and LAT 09/10/2017 X ray : Chest PA and LAT 01/22/2011 X ray : Chest PA and LAT 01/09/2023 X ray : Chest PA and LAT 04/14/2007 Urine Dip --in house 01/09/2023 Ultrasound : Breast, right 09/01/2009 Barium Swallow 06/11/2018 Echocardiogram 12/05/2023 Mammogram 05/11/2021 Mammogram 07/19/2021 Mammogram 02/15/2016 Mammogram 12/14/2022 Spirometry 10/22/2013 Spirometry 06/11/2018 Rapid Strep 08/27/2022 Urine Cytology ([place]) 10/30/2016 Urine Cytology ([place]) 06/26/2017 Colonoscopy 05/11/2021 Colonoscopy 07/19/2021 Colonoscopy 05/11/2021 ekg 01/09/2023 ekg 04/16/2022 -PAP, cervical: HPV HYBRID C APTURE HIGH RISK DNA PROBE if diagnosis of ASCUS 11/21/2006 X ray : Sinuses 04/03/2011 -CRP, High Sensitivity (HSCRP) 1 URINE CULTURE (395 NOHO) 06/12/2022 MRI : brain 08/15/2006 -VITAMIN D2, D3 & TOTAL (250H) 2 -VITAMIN D2, D3 & TOTAL (250H) 1 -VITAMIN D2, D3 & TOTAL (250H) 2 -Pap Smear 09/13/2009 PAP, cervical; HPV Hybrid Capture High R isk DNA Probe any Dx 10/26/2015 PAP, cervical; HPV Hybrid Capture High R isk DNA Probe any Dx 12/20/2021 Mammogram, routine annual screening 10/09 Mammogram, routine annual screening 08/2008 Mammogram, routine annual screening 07/09 Mammogram, routine annual screening 08/10 Mammogram, routine annual screening 10/09 Mammogram, routine annual screening 05/2021 Mammogram, routine annual screening 05/2018 Mammogram, routine annual screening 10/09 Urine Osmo Random 06/05/2022 Urine, Sodium Random 06/05/2022 MRI : Wrist, Left 04/20/2010 -HEMOGLOBIN A1C (DIAGNOSTIC) 11/06/2011 -TSH 09/14/2009 -TSH 09/19/2010 -TSH 08/28/2011 -LIPID PANEL, FASTING 11/06/2011 -LIPID PANEL, FASTING 07/20/2010 COMPREHENSIVE METABOLIC PANL -45911 10/10 MRI: Lumbar spine with and without contr ast 07/16/2013 Stress Treadmill Test 12/05/2023 FERRITIN 12/14/2022 FERRITIN 11/23/2022 IRON & TIBC 11/23/2022 HEMOGLOBIN A1C 10/30/2016 HEMOGLOBIN A1C 12/12/2017 HEMOGLOBIN A1C 06/24/2020 HEMOGLOBIN A1C 06/26/2017 HEMOGLOBIN A1C 05/12/2018 HSCRP 09/24/2013 HSCRP 10/26/2015 HSCRP 07/27/2014 COMPREHENSIVE METABOLIC PANL 07/19/2021 COMPREHENSIVE METABOLIC PANL 07/27/2014 COMPREHENSIVE METABOLIC PANL 05/12/2018 COMPREHENSIVE METABOLIC PANL 12/12/2017 COMPREHENSIVE METABOLIC PANL 10/26/2015 COMPREHENSIVE METABOLIC PANL 10/27/2022 COMPREHENSIVE METABOLIC PANL 07/24/2022 COMPREHENSIVE METABOLIC PANL 01/09/2023 COMPREHENSIVE METABOLIC PANL 06/05/2022 COMPREHENSIVE METABOLIC PANL 11/23/2022 COMPREHENSIVE METABOLIC PANL 10/25/2014 COMPREHENSIVE METABOLIC PANL 06/26/2017 COMPREHENSIVE METABOLIC PANL 10/30/2016 COMPREHENSIVE METABOLIC PANL 06/24/2020 COMPREHENSIVE METABOLIC PANL 05/11/2021 LIPID PANEL 12/12/2017 LIPID PANEL 06/26/2017 LIPID PANEL 05/11/2021 LIPID PANEL 07/24/2022 LIPID PANEL 07/19/2021 LIPID PANEL 07/27/2014 LIPID PANEL 05/12/2018 LIPID PANEL 10/25/2014 LIPID PANEL 10/30/2016 LIPID PANEL 10/26/2015 TSH WITH REFLEX TO T4 10/30/2016 TSH WITH REFLEX TO T4 10/25/2014 TSH WITH REFLEX TO T4 06/26/2017 TSH WITH REFLEX TO T4 05/11/2021 TSH WITH REFLEX TO T4 05/12/2018 TSH WITH REFLEX TO T4 10/26/2015 TSH WITH REFLEX TO T4 12/12/2017 TSH WITH REFLEX TO T4 07/24/2022 TSH WITH REFLEX TO T4 07/19/2021 CORTISOL 07/19/2021 ESTRADIOL 07/19/2021 INSULIN 06/24/2020 TSH 07/27/2014 TSH 09/14/2013 Vitamin D25 OH 09/24/2018 Vitamin D25 OH 10/26/2015 Vitamin D25 OH 12/12/2017 Vitamin D25 OH 07/27/2014 Vitamin D25 OH 08/24/2018 Vitamin D25 OH 07/24/2022 Vitamin D25 OH 05/12/2018 Vitamin D25 OH 07/19/2021 Vitamin D25 OH 05/11/2021 CBC 07/16/2013 CBC AUTO DIFF 07/24/2022 CBC AUTO DIFF 10/27/2022 CBC AUTO DIFF 10/30/2016 CBC AUTO DIFF 10/25/2014 CBC AUTO DIFF 09/24/2018 CBC AUTO DIFF 01/09/2023 CBC AUTO DIFF 07/19/2021 CBC AUTO DIFF 06/26/2017 CBC AUTO DIFF 05/12/2018 CBC AUTO DIFF 12/12/2017 CBC AUTO DIFF 10/26/2015 SED RATE 01/09/2023 SED RATE 10/27/2022 SED RATE 10/30/2016 SED RATE 07/19/2021 SED RATE 12/14/2022 ROSS (ANTI-NUCLEAR ANTIBODY SCREEN) USE THIS ONE 12/14/2022 ROSS (ANTI-NUCLEAR ANTIBODY SCREEN) USE THIS ONE 10/26/2015 CRP 07/16/2013 CRP 01/09/2023 CRP 10/27/2022 CRP 12/14/2022 CRP 11/23/2022 CRP 10/30/2016 CRP 07/19/2021 CRP 10/25/2014 RHEUMATOID FACTOR 10/26/2015 LYME AB 07/16/2013 LYME WESTERN BLOT (use this one) 023 URINE CULTURE 10/30/2016 URINE CULTURE 06/26/2017 EHRLICHIA AB (use this one) 10/26/2015 EHRLICHIA AB (use this one) 10/27/2022 BABESIA AB (use this one) 10/26/2015 BABESIA AB (use this one) 10/27/2022 URINALYSIS, COMPLETE 06/26/2017 URINALYSIS, COMPLETE 10/30/2016 Chest 2 Views Frontal and Lat 09/28/2013 Ultrasound : Pelvis and Endovag 06/12/19 CEA MONOCLONAL 10/30/2016 HEP C ANTIBODY 07/19/2021 LYME 10/26/2015 Hereditary Hemochromatosis 11/23/2022 pharmacological nuclear stress test 0405/2018 TSH with reflex 11/27/2019 TSH with reflex 12/05/2023 1-25-OH vitamin D 11/27/2019 CBC 12/05/2023 COMP MET PANEL 11/27/2019 COMP MET PANEL 12/05/2023 Hemoglobin A1C 12/05/2023 LIPID PANEL 12/05/2023 LIPID PANEL 11/27/2019 CBC AND DIFFERENTIAL 11/27/2019 US ABDOMEN 09/08/2018 US ABDOMEN 09/08/2018 Calcium Scoring Test 12/05/2023 H. PYLORI BREATH TEST 09/06/2022 CTA: Abdoman with and without contrast 1 03/12/2022 PERIPHERAL BLOOD SMEAR REVIEW 09/07/2022 CT Abd/Pelvis W/O Contrast 06/05/2022 Nuclear Stress Test : Pharmacological Coronary Artery Calcium Score 12/05/2023 TSH WITH REFLEX TO FT4 11/23/2022 HSCRP 12/05/2023 HSCRP 12/12/2023 Future Test Test Name Order Date -VITAMIN D2, D3 & TOTAL (250H) 1 -TSH 03/27/2010 Next Appt Details Provider Name:Esme hunter, 03/13/2024 02:15:00 PM, [address] [place], [address], Provider Name:Austin Rios, 0 03/30/2024 11:30:00 AM, [address] [place], [address], Insurance Providers Payer Name Payer Address Payer Phone Subscriber Number Group Number Insured Name Patient Relationship to Insured Coverage Start Date Coverage End Date BCBS PPO [address] [place] [address] [phone] [id number] R[place] Self - patient is the insured Medications Administered Medication Instructions Date of Administration Dosage Notes Dexamethasone 08/31/2022 0.8 mL Medical (General) History Medical History History ICD Code seasonal allergies pneumonia 08/25/09-and 12/2014-(many pneu monias as a child) Hypothyroidism HTN 09/2015 Pneumonia NOS Covid19 02/2022; Covid19 08/2023 NORMAL ECHO 12/2023; CAC score 0 01/2024 Surgical History Surgery Date(Month/Year) LRTI - arthroscopic surgery - Nicole [facility], Dr. Sherman 12/22/2020 Rt rotator cuff repair- Dr. Lovelace 05/10 S/P Abdominal Endometrioma ( Leyla) 2 004 decompression of left median nerve dr El zuleta 06/07/2010 L rotator cuff tear repair w/ 10/04/09 endometrial ablation--[facility] 07/2007 abdominal lipoma removed 2003 (2) c-sections 1986,1998 Hospitalization History Reason Date(Month/Year) [facility] ER visit for vomiting 12/2022 [facility] for N/V, abdominal p ain 08/22-08/24/22
--- NOTE | 2024-02-23 17:24 | PC.NURSE ---
pt refused scale weight- verbalized her weight.
[2024-02-23 18:05] LABS: Alanine Aminotransferase 25 U/L (0-31); Albumin Level 4.6 g/dL (3.5-5.0); Alkaline Phosphatase 102 U/L (39-117); Anion Gap 17 (12-20); Aspartate Amino Transferase 22 U/L (5-31); Blood Urea Nitrogen 19 mg/dL (9-16); Calcium 9.7 mg/dL (8.4-10.2); Carbon Dioxide 27 mmol/L (22-29); Chloride 94 mmol/L (96-108); Creatinine Clr Calc Pharmacy 58.9; Estimated Glomerular Filt Rate 58; Glucose Random 198 mg/dL (60-115); Lipase 10 U/L (8-78); Magnesium 1.9 mg/dL (1.6-2.6); Sodium 135 mmol/L (135-145); Total Protein 7.4 g/dL (6.5-8.0)
[2024-02-23 18:10] LABS: Hematocrit 44.8 % (37.0-47.0); Hemoglobin 16.4 g/dl (12.0-16.0); Lactic Acid 2.8 mmol/L (0.5-2.0); Mean Corpuscular HGB Conc 36.6 g/dl (31.0-35.0); Mean Corpuscular Hemoglobin 30.4 pg (27.0-33.0); Mean Platelet Volume 11.5 fL (9.4-12.3); Platelet Count 327 X10*3/uL (160-400); Red Cell Distribution Width 13.3 % (11.0-16.0); WBC ABN SCTR FOR CBC 1
[2024-02-23 18:28] LABS: Influenza A PCR NEGATIVE (Negative); Influenza B PCR NEGATIVE (Negative); Resp Syncy Virus RNA Qual PCR NEGATIVE (Negative); SARS COV2 PCR INHOUSE NEGATIVE (Negative)
[2024-02-23 18:46] LABS: Band Neutrophils Percent 1 % (3-5); Lymphocytes Percent Manual 8 % (20-40); Monocytes Percent Manual 2 % (2-11); Neutrophils Percent Manual 89 % (45-73); RBC Morphology NORMAL
[2024-02-23 18:47] LABS: Large Platelet PRESENT; Platelet Estimate SLIGHTLY INCREASED (NORMAL); Platelet Morphology Comment NOTED
[2024-02-23 18:48] LABS: Smudge Cells PRESENT
[2024-02-23 18:49] LABS: Toxic Vacuolation PRESENT
[2024-02-23 18:50] LABS: Lymphocytes Absolute Manual 1.1 X10*3/uL (1.2-4.9); Monocytes Absolute Manual 0.3 X10*3/uL (0.1-1.2); Neutrophils Absolute Manual 12.5 X10*3/uL (2.0-8.3); White Blood Count 13.9 X10*3/uL (4.8-10.8)
[2024-02-23 19:04] VITALS: BP 166/101; PULSE 112; RESP 20; TEMP 36.7; O2SAT 97
[2024-02-23] MEDS: ondansetron HCL 4 MG/2 ML VIAL IVPUSH ×2 (19:18→20:40)
[2024-02-23 19:48] LABS: Reflex Lactate? Lactic Acid Added
[2024-02-23] MEDS: 0.9 % Sodium Chloride 1,000 ML 999 ML IV (20:22)
--- NOTE | 2024-02-23 20:23 | MHC.EDTECH ---
Per hold off lab draw for lactic
--- NOTE | 2024-02-23 20:25 | PC.NURSE ---
Pt medicated per [facility] Plan of care ongoing.
[2024-02-23] MEDS: Famotidine/PF 20 MG/2 ML VIAL IVPUSH (20:38)
[2024-02-23] MEDS: Potassium Chloride/H20 10 MEQ/100 ML PIGGYBACK 100 MEQ IV (20:42)
[2024-02-23 20:48] VITALS: BP 155/88; PULSE 109; RESP 14; TEMP 36.4; O2SAT 99
--- NOTE | 2024-02-23 20:50 | PC.NURSE ---
Pt medicated per [facility] Plan of care ongoing.
--- NOTE | 2024-02-23 21:34 | PC.NURSE ---
Pt requested and given UA cup for sample Pt ambulated to the restroom with a stead gait. Plan of care ongoing.
--- NOTE | 2024-02-23 21:42 | PC.NURSE ---
Pt reconnected to IV UA collected and sent Plan of care ongoing.
[2024-02-23] MEDS: Lactated Ringers 1,000 ML 999 ML IV (21:49)
--- NOTE | 2024-02-23 21:51 | PC.NURSE ---
Pt medicated per [facility] Plan of care ongoing.
[2024-02-23 22:10] VITALS: BP 165/86; PULSE 111; RESP 18; TEMP 36.6; O2SAT 97
[2024-02-23 22:11] LABS: Appearance Urine Cloudy; Color Urine Yellow; Glucose Urine UA Negative (Negative); Leukocyte Esterase Urine Small (1+) (Negative); Nitrite Urine Negative (Negative); UMIC TRIGGER UACC YES; Urine Blood Negative (Negative); Urine Ketones Negative (Negative); Urine Protein Negative (Neg-Trace)
--- NOTE | 2024-02-23 22:14 | MHC.EDTECH ---
PT placed on color television console monitor [place] of 111
[2024-02-23 22:23] LABS: Bacteria Urine None Seen (None Seen); Calcium Oxalate Crystals Urine Present; Hyaline Casts Urine 0-2 /LPF (0-2); RBC Urine 0-2 /HPF (0-2); Squamous Epithelial Cell Urine 0-2 /HPF (0-2); UACC Culture Trigger YES; WBC Urine 0-5 /HPF (0-5)
[2024-02-23] MEDS: LORazepam 2 MG/ML VIAL 1 MG IVPUSH (22:48)
--- NOTE | 2024-02-23 22:55 | PC.NURSE ---
Pt requested and given meds to help with anxiety Pt medicated per mar Plan of care ongoing.
[2024-02-24 00:58] VITALS: BP 109/77; PULSE 96; RESP 12; TEMP 36.8; O2SAT 96
[2024-02-24 01:08] LABS: Lactic Acid 1.1 mmol/L (0.5-2.0)
[2024-02-24 01:12] LABS: Anion Gap 17 (12-20); Blood Urea Nitrogen 17 mg/dL (9-16); Calcium 8.8 mg/dL (8.4-10.2); Carbon Dioxide 25 mmol/L (22-29); Chloride 98 mmol/L (96-108); Creatinine Clr Calc Pharmacy 72.3; Estimated Glomerular Filt Rate > 60; Glucose Random 146 mg/dL (60-115); Potassium 2.8 mmol/L (3.3-5.1); Sodium 137 mmol/L (135-145)
--- NOTE | 2024-02-24 01:15 | PC.NURSE ---
Dr Osuna notified and aware of pts potassium of 2.8. Plan of care ongoing.
[2024-02-24] MEDS: Potassium Bicarbonate/Cit AC 25 MEQ TABLET.EFF 50 MEQ PO (01:19)
--- NOTE | 2024-02-24 01:34 | ECG_ITS ---
Test Reason : HYPOKALEMIA Blood Pressure : / mmHG Vent. Rate : 098 BPM Atrial Rate : 098 BPM P-R Int : 148 ms QRS Dur : 086 ms QT Int : 404 ms P-R-T Axes : 028 052 036 degrees QTc Int : 515 ms Normal sinus rhythm Possible Left atrial enlargement Nonspecific T wave abnormality Prolonged QT Abnormal ECG No previous ECGs available Referred By: Ben Osuna Electronically Signed By:BACILIO PICKENS
[2024-02-24] MEDS: Potassium Chloride/H20 10 MEQ/100 ML PIGGYBACK 100 MEQ IV ×2 (01:53→03:15)
--- NOTE | 2024-02-24 02:10 | PC.NURSE ---
Pt medicated per may Pt requested and given water. Plan of care ongoing.
[2024-02-24 03:16] LABS: Potassium 3.7 mmol/L (3.3-5.1)
[2024-02-24 04:29] VITALS: BP 123/79; PULSE 95; RESP 14; TEMP 36.8; O2SAT 96
[2024-02-24 04:35] VITALS: BP 123/79; PULSE 95; RESP 14; TEMP 36.8; O2SAT 96
== END 2024-02-24 04:40 | disposition home or self-care (01) ==
PROVIDERS: Internal Medicine; Nurse Practitioner Family; Emergency Provider Emergency Medicine; PCP Physician Assistant
DX: K52.9 Noninfective gastroenteritis and colitis, unspecified (principal); R11.0 Nausea; R10.2 Pelvic and perineal pain; E87.6 Hypokalemia; R94.31 Abnormal electrocardiogram [ECG] [EKG]; Z03.818 Encounter for observation for suspected exposure to other biological agents ruled out; Z79.899 Other long term (current) drug therapy
CPT/HCPCS: 0241U; 36415; 80048; 80053; 81001; 83605; 83690; 83735; 84132; 85007; 85027; 87086; 93005; 96361; 96365; 96367; 96375; 96376; 99284; 99285; J2060; J2405; J3480; J7120

== ENCOUNTER → 2024-02-24 01:34 | Outpatient (BNV) | payer OTHER, SELFPAY | PROVIDERS: Emergency Provider Emergency Medicine; PCP Physician Assistant; Visit Provider Internal Medicine | DX: R94.31 Abnormal electrocardiogram [ECG] [EKG] (principal); E87.6 Hypokalemia | CPT/HCPCS: 93010 ==

== ENCOUNTER 2024-03-10 15:16 | Outpatient (REF) | payer OTHER, SELFPAY | END 2024-03-10 15:17 | disposition home or self-care (01) | LOC: HO.LAB 15:16 | PROVIDERS: PCP Physician Assistant; Visit Provider Internal Medicine Nephrology | DX: Z13.89 Encounter for screening for other disorder (principal) ==

== ENCOUNTER 2024-03-25 15:23 | Outpatient (REF) | payer OTHER, SELFPAY ==
[2024-03-25 17:54] LABS: Total Protein Urine Random < 7 mg/dL (<12)
[2024-03-25 17:58] LABS: Cortisol Random 7.2 ug/dL
[2024-03-25 18:00] LABS: TSH reflex Free T4 1.56 uIU/mL (0.32-4.0); Vitamin D 25-OH Total 22.5 ng/mL (>30)
[2024-03-25 19:12] LABS: Potassium 2.9 mmol/L (3.3-5.1)
[2024-03-25 19:13] LABS: Anion Gap 6 (12-20); Blood Urea Nitrogen 10 mg/dL (9-16); Calcium 8.8 mg/dL (8.4-10.2); Carbon Dioxide 31 mmol/L (22-29); Chloride 107 mmol/L (96-108); Estimated Glomerular Filt Rate > 60; Sodium 141 mmol/L (135-145)
[2024-04-03 09:38] LABS: Renin 15.41 ng/mL/h (0.25-5.82)
[2024-04-04 00:27] LABS: CATF, 24 Ur Volume 1000 mL; CATF-24Ur Creatinine 1.21 g/24 h (0.50-2.15); Catecholamines,Tot. (E+NE) 24U 90 mcg/24 h (26-121); Dopamine, 24 Ur 186 mcg/24 h (52-480); Norepinephrine, 24 Ur 90 mcg/24 h (15-100)
[2024-04-10 05:08] LABS: Aldosterone, 24Hr Urine 9.5 mcg/24 h; Creatinine 24Hr Urine 1.21 g/24 h (0.50-2.15); Total Volume 1000 mL
== END 2024-03-25 15:24 | disposition home or self-care (01) ==
LOC: HO.LAB 15:23
PROVIDERS: PCP Physician Assistant; Visit Provider Internal Medicine Nephrology
DX: I10 Essential (primary) hypertension (principal)
CPT/HCPCS: 36415; 80051; 82088; 82306; 82310; 82384; 82533; 82565; 84156; 84244; 84443; 84520

== ENCOUNTER → 2024-04-06 07:54 | Outpatient (REF) | payer OTHER, SELFPAY ==
--- NOTE | ~2024-04-06 | NM_ITS ---
Lexiscan Myocardial perfusion study Indication: Shortness of breath to evaluate for myocardial ischemia Technique: The patient was brought in for a Lexiscan perfusion study on April 06, 2024 and was injected 0.4 mg of Lexiscan intravenously. Within a minute of this injection 30 mCi of sestamibi was given intravenously. Images were obtained using the SPECT gamma camera interlaced with the gating device. Images were obtained in supine position. Resting perfusion study was performed on April 07, 2024. Patient was administered 30 mCi of sestamibi intravenously at rest. Images were then obtained in supine position. Images obtained without without CT attenuation. Total DLP 95 mGy-cm. Images were processed with the software and compared side to side in short axis, horizontal long axis and vertical long axis views. Findings: The stress perfusion study showed nonattenuated images show normal uptake of the radiotracer in all segments of the LV myocardium. Attenuation corrected images show minimal thinning of the apex of the LV myocardium. The gated study shows normal LV systolic function with calculated LVEF of 67%. LV cavity is normal in size. The gated study shows normal systolic wall thickening and contraction of segments. Resting study shows no change in perfusion study compared to stress perfusion study. Gating at rest reveals normal systolic wall motion with ejection fraction at 54%. The findings are consistent with normal myocardial perfusion. NM/NM marisela perf SPECT rest & str Impression: 1. Myocardial perfusion imaging study shows [normal myocardial perfusion 2. Gated LVEF is 67% 3. Transient ischemic dilatation not present Nondiagnostic changes on EKG. Electronically signed by: Nilson Gill MD 04/07/2024 04:14 PM [facility]
--- NOTE | 2024-04-06 08:00 | CA_ITS ---
Acquisition Time: 2024-04-06 08:08:43 Total Exercise Time: 00:02:00 Test Indications: CP HTN Medications: LEVOTHYROXINE PROZAC COZAAR LORAZAPAM ADDERALL CYCLOBENZAPRINE ALBUTEROL INHALER Protocol: LEXISCAN Max HR: 116 BPM 72% of Pred: 159 BPM Max BP: 132/80 mmHG Max Work Load: 1.0 METS Pharmacologic stress test with Lexiscan, while pt kicks her legs, with reports of 1/10 mid chest pressure and feeling flushed, without any arrythmias, with normotensive response to injection. Nondiagnostic EKG for ischemia. In recovery, pt treated with IVP Aminophylline 75 mg to reverse Lexiscan, after which pt feeling back to baseline. Nuclear images pending. Test reviewed with . Referred By: Ness Winkler Electronically Signed By: Kurt Pandya
--- OUTSIDE RECORDS SUMMARY | 2024-04-06 08:02 | XMS_ITS | Encounter Summary ---
Author Organization [facility], Address [address] [place] [address] Phone Care Team Providers Care Care Services Manager Name Role Phone Austin Rios PA-C Primary Care Provider [phone] Encounter Details Date Type Department Care Team (Late st Contact Info) Description 04/03/2024 Documentation Only [facility], [address] [address] Peyton Mendez [address] [place] [phone] Social History Tobacco Use Types Packs/Day Years Used Date Smoking Tobacco: Every Day Cigarettes Alcohol Use Standard Drinks/Week Comments Yes 0 (1 standard drink = 0.6 oz pur e alcohol) Rarely Comments Unknown Sex and Gender Information Value Date Recorded Sex Assigned at Not on file Legal Sex Female 8:39 AM EDT Gender Identity Not on file Sexual Orientation Not on file documented as of this encounter Plan of Treatment Upcoming Encounters Date Type Department Care Team (Late st Contact Info) Description 02/26/2025 10:00 AM EST Office Visit [facility] - John [address] [place] [phone] Remberto Fletcher MD [address] [place] [address] [place] [address] documented as of this encounter Visit Diagnoses Not on filedocumented in this encounter Care Teams Care Services Manager Relationship Specialty Start Date End Date Austin Rios PA-C [address] [place] [phone] PCP - General Physician Cistern Room Operator 02/27/24 documented as of this encounter
--- OUTSIDE RECORDS SUMMARY | 2024-04-06 08:02 | XMS_ITS | Encounter Summary ---
Author Organization [facility], Address [address] [place] [address] Phone Care Team Providers Care Tablet Technician Name Role Phone Austin Rios PA-C Primary Care Provider [phone] Encounter Details Date Type Department Care Team (Late st Contact Info) Description 04/01/2024 Documentation Only [facility], [address] [place] [address] Peyton Mendez [address] [place] [phone] Social History Tobacco Use Types Packs/Day [...] Visit [facility] - John [address] [place] [phone] Remberto Fletcher MD [address] [place] [address] [place] [address] documented as of this encounter Visit Diagnoses Not on filedocumented in this encounter Care Teams Tablet Technician Relationship Specialty Start Date End Date Austin Rios PA-C [address] [place] [phone] PCP - General Physician Sandwich Machine Operator 02/27/24 documented as of this encounter
--- OUTSIDE RECORDS SUMMARY | 2024-04-06 08:02 | XMS_ITS | Encounter Summary ---
Author Organization [facility], Address [address] [place] [address] Phone Care Team Providers Care Superintendent Oil Field Drilling Name Role Phone Austin Rios PA-C Primary Care Provider [phone] Encounter Details Date Type Department Care Team (Late st Contact Info) Description 06/07/2022 Documentation Only [facility] [address] [address] [place] [address] Roseann Loepz [place] [phone] Social History Tobacco Use Types Packs/Day Years Used Date Smoking Tobacco: Every Day Cigarettes Alcohol Use Standard Drinks/Week Comments Yes 0 (1 standard drink = 0.6 oz pur e alcohol) Rarely Comments Unknown Sex and Gender Information Value Date Recorded Sex Assigned at Not on file Legal Sex Female 8:39 AM EDT Gender Identity Not on file Sexual Orientation Not on file COVID-19 Exposure Response Date Recorded In the last 10 days, have yo u been in contact with someone who was confirmed or suspected to have Coronavirus/COVID-19? No / Unsure 06/08/2022 10:59 AM EDT documented as of this encounter Plan of Treatment Upcoming Encounters Date Type Department Care Team (Late st Contact Info) Description 02/26/2025 10:00 AM EST [facility] [place] [phone] Remberto Fletcher MD [address] [place] [phone] documented as of this encounter Visit Diagnoses Not on filedocumented in this encounter Care Teams Superintendent Oil Field Drilling Relationship Specialty Start Date End Date Austin Rios PA-C [address] [place] [phone] PCP - General Physician Customer Account Representative 02/27/24 documented as of this encounter
--- OUTSIDE RECORDS SUMMARY | 2024-04-06 08:02 | XMS_ITS | Encounter Summary ---
Author Organization [facility], Address [address] [place] [address] Phone Care Team Providers Care Skiver Welt End Name Role Phone Austin Rios PA-C Primary Care Provider Encounter Details Date Type Department Care Team (Late st Contact Info) Description 06/04/2022 Documentation Only [facility] [address] [place] [address] Roseann Lopez PA-C [address] [place] [phone] Social History Tobacco Use Types Packs/Day Years Used Date Smoking Tobacco: Never Assessed Comments Unknown Sex and Gender Information Value Date Recorded Sex Assigned at Not on file Legal Sex Female 8:39 AM EDT Gender Identity Not on file Sexual Orientation Not on file documented as of this encounter Plan of Treatment Upcoming Encounters Date Type Department Care Team (Late st Contact Info) Description 02/26/2025 10:00 AM EST Office Visit [facility] Janis [address] [place] [address] Remberto Fletcher MD [address] [place] [phone] documented as of this encounter Visit Diagnoses Not on filedocumented in this encounter Care Teams Skiver Welt End Relationship Specialty Start Date End Date Austin Rios PA-C [address] [place] [address] PCP - General Physician Welfare Adviser 02/27/24 documented as of this encounter
--- OUTSIDE RECORDS SUMMARY | 2024-04-06 08:02 | XMS_ITS | Clinical Summary ---
Author Organization [facility], Address [address] [place] [address] Phone Care Team Providers Care Hydroelectric Plant Structural Engineer Name Role Phone Austin Rios PA-C Primary Care Provider [phone] Allergies Active Allergy Reactions Criticality Noted Date Comments Hydrocodone-Acetaminophen 06/07/2022 Latex 06/07/2022 Oxycodone-Acetaminophen 06/07/2022 Medications losartan (COZAAR) 100 MG tablet Take 100 mg by mouth in the morning. Active levothyroxine (SYNTHROID, LEVOTHROID) 100 MCG tablet Take 1 tablet by mouth in the morning. 0 Active Beclomethasone Diprop HFA (Qvar RediHaler) 40 MCG/ACT aerosol Inhale 1 Active cholecalciferol (VITAMIN D-3) 50 MCG (2000 UT) capsule Take 2,000 Units by mouth 1 (one) time each day 3 Active dexmethylphenid ate XR (FOCALIN XR) 30 MG 24 hr capsule 3 Active FLUoxetine (PROzac) 40 MG capsule Take 40 mg by mouth 1 (one) time each day 3 Active ondansetron (ZOFRAN) 4 MG tablet TAKE 1 TABLET BY MOUTH EVERY 6 HOURS NEEDED FORNAUSEA AND VOMITING 3 Active b complex vitamins capsule Take 1 capsule by mouth 1 (one) time each day Active omega-3 (FISH OIL) 1000 MG capsule Take 1,000 mg by mouth 1 (one) time each day Active amLODIPine (NORVASC) 10 MG tablet 4 Active atomoxetine (STRATTERA) 25 MG capsule 4 Active hydroCHLOROthia zide 25 MG tablet 4 Active LORazepam (ATIVAN) 0.5 MG tablet 4 Active Active Problems Problem Noted Date Diagnosed Date Prerenal azotemia 06/08/2022 Hypothyroidism 06/07/2022 Essential hypertension 06/07/2022 Hyposmolality and/or hyponatremia 06/07/2022 Other specified abnormal finding of blood chemis try 06/07/2022 Encounters Date Type Department Care Team Description 04/03/2024 Documentation Only [facility] [address] [place] [address] Peyton Mendez 04/01/2024 Documentation Only [facility] [address] [place] [address] Peyton Mendez 02/27/2024 10:15 AM EST Office Visit [facility] [address] [place] [address] Remberto Fletcher MD Essential hypertension (Primary Dx) 01/15/2024 Telephone [facility] [address] [place] [address] Allan Veloz MA 01/15/2024 Documentation Only [facility] [address] [place] [address] Allan Veloz MA from Last 3 Months Immunizations Name Administration Dates Next Due Hep A, Unspecified 02/25/2013 Typhoid, Unspecified 02/08/2013 Yellow Fever 02/25/2013 Family History Medical History Relation Comments Stroke Father Colon cancer Maternal Grandfather Breast cancer Mother COPD Mother Colon cancer Mother's Brother Ovarian cancer Mother's Sister Relation Status Comments Father Maternal Grandfather Mother Mother's Brother Mother's Sister Social History Tobacco Use Types Packs/Day Years Used Date Smoking Tobacco: Every Day Cigarettes Tobacco Cessation:Ready to Q uit: Not Asked; Counseling Given: Not Answered Alcohol Use Standard Drinks/Week Comments Yes 0 (1 standard drink = 0.6 oz pur e alcohol) Rarely Comments Unknown Sex and Gender Information Value Date Recorded Sex Assigned at Not on file Legal Sex Female 8:39 AM EDT Gender Identity Not on file Sexual Orientation Not on file Plan of Treatment Upcoming Encounters Date Type Department Care Team (Late st Contact Info) Description 02/26/2025 10:00 AM EST Office Visit [facility] [place], [address] [place] [phone] Remberto Fletcher MD [address] [facility] [place] [phone] Health Maintenance Due Date Last Done Comments Breast Cancer Screening 1960 Pneumococcal Vaccine: Pediatrics (0 to 5 Years) and At-Risk Patients (6 to 64 Years) (1 of 2 - PCV) 1968 Colorectal Cancer Screening: Annual FOBT 09/18/2011 Colorectal Cancer Screening: Colonoscopy 09/18/2011 Colorectal Cancer Screening: Sigmoidoscopy 09/18/2011 Influenza Vaccine (#1) 2023 Hepatitis B Vaccine Aged Out 01/23/1992, 05/23/1991, 03/24/1991 No longer eligible based on patient's age to complete this topic Insurance [facility] Care Teams Hydroelectric Plant Structural Engineer Relationship Specialty Start Date End Date Austin Rios PA-C [address] [place] [phone] PCP - General Physician Bore Mill Operator 02/27/24
--- OUTSIDE RECORDS SUMMARY | 2024-04-06 08:02 | XMS_ITS | Encounter Summary ---
Author Organization [facility], Address [address] [place] [address] Phone Care Team Providers Care Gas Combustion Engineer Name Role Phone Austin Rios PA-C Primary Care Provider [phone] Encounter Details Date Type Department Care Team (Late st Contact Info) Description 01/15/2024 Documentation Only [facility], [address] [place] [address] [place] [address] [place] [phone] Social History Tobacco Use Types Packs/Day [...] Visit [facility] - John [address] [place] [phone] Remberto Fletcher MD [address] [place] [address] [place] [phone] documented as of this encounter Visit Diagnoses Not on filedocumented in this encounter Care Teams Gas Combustion Engineer Relationship Specialty Start Date End Date Austin Rios PA-C [address] [place] [phone] PCP - General Physician Brim Stitcher 02/27/24 documented as of this encounter
--- OUTSIDE RECORDS SUMMARY | 2024-04-06 08:03 | XMS_ITS ---
Author Organization [facility] madeleine Address [address] [place] [address] Care Team Providers Care Channel Lip Wetter Name Role Phone Esme Claudio Primary Care Provider [phone] Austin Rios [phone] REASON FOR VISIT referral Encounters Encounter Location Date Provider Diagnosis [facility] [address] [place] [address] 03/30/2024 Esme Claudio Plan Of Treatment No Information Progress Notes * RAND SAMANIEGODOB:1960 (63 yo F)Acc No.[id number]:03/30/2024 Patient:?DANETTE RAND :1960???Age:63 Y???Sex:Female Address:[place] [address] * * Date:?
== END ==
LOC: HO.CARD 07:54
PROVIDERS: PCP Physician Assistant; Visit Provider Physician Assistant
DX: R06.00 Dyspnea, unspecified (principal); E78.5 Hyperlipidemia, unspecified
CPT/HCPCS: 78452; 93017; A9500; J0280; J2785

== ENCOUNTER 2024-04-07 13:16 | Outpatient (REF) | payer OTHER, SELFPAY | END 2024-04-07 13:17 | disposition home or self-care (01) | LOC: HO.LAB 13:16 | PROVIDERS: Visit Provider Physician Assistant | DX: Z13.89 Encounter for screening for other disorder (principal) ==

== ENCOUNTER 2024-04-08 06:34 | Outpatient (REF) | payer OTHER, SELFPAY ==
--- OUTSIDE RECORDS SUMMARY | 2024-04-08 06:37 | XMS_ITS | Encounter Summary ---
Author Organization [facility], Address [address] [place] [address] Phone Care Team Providers Care Climate Change Risk Assessor Name Role Phone Austin Rios PA-C Primary Care Provider [phone] Encounter Details Date Type Department Care Team (Late st Contact Info) Description 01/15/2024 Documentation Only [facility], [address] [place] [place] [address] [place] [address] [place] [phone] Social History Tobacco Use Types Packs/Day [...] Visit [facility] - John MILES [address] [place] [phone] Remberto Fletcher MD [address] [place] [address] [place] [phone] documented as of this encounter Visit Diagnoses Not on filedocumented in this encounter Care Teams Climate Change Risk Assessor Relationship Specialty Start Date End Date Austin Rios PA-C [address] [place] [address] PCP - General Physician Automatic I Threading Machine Feeder 02/27/24 documented as of this encounter
--- OUTSIDE RECORDS SUMMARY | 2024-04-08 06:37 | XMS_ITS | Encounter Summary ---
Author Organization [facility], Address [address] [place] [address] Phone Care Team Providers Care Farmworker Cranberry Name Role Phone Austin Rios PA-C Primary Care Provider [phone] Encounter Details Date Type Department Care Team (Late st Contact Info) Description 04/03/2024 Documentation Only [facility], [address] [place] [address] Peyton Mendez [address] [place] [phone] Social History Tobacco Use Types Packs/Day [...] Visit [facility] - John MILES [address] [place] [phone] Remberto Fletcher MD [address] [place] [address] [place] [address] documented as of this encounter Visit Diagnoses Not on filedocumented in this encounter Care Teams Farmworker Cranberry Relationship Specialty Start Date End Date Austin Rios PA-C [address] [place] [address] PCP - General Physician Algebraist 02/27/24 documented as of this encounter
--- OUTSIDE RECORDS SUMMARY | 2024-04-08 06:37 | XMS_ITS | Encounter Summary ---
Author Organization [facility], Address [address] [place] [address] Phone Care Team Providers Care Cell Inspector Name Role Phone Austin Rios PA-C Primary Care Provider [phone] Encounter Details Date Type Department Care Team (Late st Contact Info) Description 04/06/2024 Documentation Only [facility], [address] [place] [place] [address] Lisbeth Avilez [address] [place] [phone] Social History Tobacco Use Types Packs/Day [...] Of [facility] - John MILES [address] [place] [phone] Remberto Fletcher MD [address] [place] [address] [place] [phone] documented as of this encounter Visit Diagnoses Not on filedocumented in this encounter Care Teams Cell Inspector Relationship Specialty Start Date End Date Austin Rios PA-C [address] [place] [address] PCP - General Physician Manager Product 02/27/24 documented as of this encounter
--- OUTSIDE RECORDS SUMMARY | 2024-04-08 06:37 | XMS_ITS | Encounter Summary ---
Author Organization [facility], Address [address] [place] [address] Phone Care Team Providers Care Package Checker Name Role Phone Austin Rios PA-C Primary Care Provider [phone] Encounter Details Date Type Department Care Team (Late st Contact Info) Description 06/04/2022 Documentation Only [facility] [address] [place] [address] Roseann Lopez PA-C [address] [place] [phone] Social History Tobacco Use Types Packs/Day Years [...] Visit [facility] Janis [address] [place] [address] Remberto Fletcher MD [address] [place] [phone] documented as of this encounter Visit Diagnoses Not on filedocumented in this encounter Care Teams Package Checker Relationship Specialty Start Date End Date Austin Rios PA-C [address] [place] [address] PCP - General Physician Cabinet Worker 02/27/24 documented as of this encounter
--- OUTSIDE RECORDS SUMMARY | 2024-04-08 06:37 | XMS_ITS | Encounter Summary ---
Author Organization [facility], Address [address] [place] [address] Phone Care Team Providers Care Contract Forester Name Role Phone Austin Rios PA-C Primary Care Provider [phone] Encounter Details Date Type Department Care Team (Late st Contact Info) Description 06/07/2022 Documentation Only [facility] [address] [place] [address] Roseann Lopez [place] [phone] Social History Tobacco Use Types Packs/Day Years [...] [facility] [address] [place] [phone] Remberto Fletcher MD [address] [place] [address] documented as of this encounter Visit Diagnoses Not on filedocumented in this encounter Care Teams Contract Forester Relationship Specialty Start Date End Date Austin Rios PA-C [address] [place] [address] PCP - General Physician Technician Test Systems 02/27/24 documented as of this encounter
--- OUTSIDE RECORDS SUMMARY | 2024-04-08 06:37 | XMS_ITS | Encounter Summary ---
Author Organization [facility] [facility], Address [address] [place] [address] Phone Care Team Providers Care Manager Latin Name Role Phone Austin Rios PA-C Primary Care Provider [phone] Encounter Details Date Type Department Care Team (Late st Contact Info) Description 04/01/2024 Documentation Only [facility] [place], [address] [place] [address] Peyton Mendez [address] [place] [phone] Social History Tobacco Use Types Packs/Day [...] Visit [facility] - John MILES [address] [place] [phone] Remberto Fletcher MD [address] [place] [address] [place] [address] documented as of this encounter Visit Diagnoses Not on filedocumented in this encounter Care Teams Manager Latin Relationship Specialty Start Date End Date Austin Rios PA-C [address] [place] [address] PCP - General Physician Life Skills Instructor 02/27/24 documented as of this encounter
--- OUTSIDE RECORDS SUMMARY | 2024-04-08 06:38 | XMS_ITS | Clinical Summary ---
Author Organization [facility], Address [address] [place] [address] Phone Care Team Providers Care Packing Checker Name Role Phone Austin Rios PA-C Primary Care Provider [phone] Allergies Active Allergy Reactions Criticality Noted Date [...] Encounters Date Type Department Care Team Description 04/06/2024 Documentation Only [facility] [address] [place] [address] Lisbeth Avilez 04/03/2024 Documentation Only [facility] [address] [place] [address] Peyton Mendez 04/01/2024 Documentation Only [facility] [address] [place] [address] Peyton Mendez 02/27/2024 10:15 AM EST Office Visit [facility] [address] MILES [address] [place] [phone] Remberto Fletcher MD Essential hypertension (Primary Dx) 01/15/2024 Telephone [facility] [address] [place] [address] Allan Veloz MA 01/15/2024 Documentation Only [facility] [address] [place] [address] Allan Veloz MA from Last 3 Months [...] Visit [facility] - [address] [place] [address] Remberto Fletcher MD [address] [place] [phone] Health Maintenance Due Date Last Done Comments [...] patient's age to complete this topic Insurance [employer] Care Teams Packing Checker Relationship Specialty Start Date End Date Austin Rios PA-C [address] [place] [address] PCP - General Physician Cancer Program Coordinator 02/27/24
--- OUTSIDE RECORDS SUMMARY | 2024-04-08 06:38 | XMS_ITS ---
Author Organization [facility] madeleine Address [address] [place] [address] Care Team Providers Care Tray Checker Name Role Phone Esme Claudio Primary Care Provider [phone] Austin Rios [phone] REASON FOR VISIT referral Encounters Encounter Location Date Provider Diagnosis [facility] [address] [place] [address] 03/30/2024 Esme Claudio Plan Of Treatment No Information Progress Notes * RAND SAMANIEGODOB:1960 (63 yo F)Acc No.[id number]:03/30/2024 Patient:?DANETTE RAND :1960???Age:63 Y???Sex:Female Address:[place] [address] * * Date:?
[2024-04-08 06:42] LABS: MANUAL DIFF FLAG NO
[2024-04-08 07:56] LABS: Basophils Absolute Auto 0.1 X10*3/uL (0.0-0.2); Basophils Percent Auto 0.6 % (0-2); Eosinophils Absolute Auto 0.2 X10*3/uL (0.0-0.4); Eosinophils Percent Auto 1.7 % (0-4); Hematocrit 39.4 % (37.0-47.0); Hemoglobin 13.6 g/dl (12.0-16.0); Imm Gran Abs Auto 0.05 X10*3/uL (0.00-0.03); Imm Gran Pct Auto 0.6 % (0.0-0.4); Lymphocytes Absolute Auto 2.4 X10*3/uL (1.2-4.9); Lymphocytes Percent Auto 28.2 % (20-40); Mean Corpuscular HGB Conc 34.5 g/dl (31.0-35.0); Mean Corpuscular Volume 86.8 fL (80.0-98.0); Mean Platelet Volume 11.1 fL (9.4-12.3); Monocytes Absolute Auto 0.6 X10*3/uL (0.1-1.2); Monocytes Percent Auto 6.5 % (2-11); Neutrophils Absolute Auto 5.4 x10*3/uL (2.0-8.3); Neutrophils Percent Auto 62.4 % (45-73); Platelet Count 262 X10*3/uL (160-400); Red Blood Count 4.54 X10*6/uL (4.20-5.50); Red Cell Distribution Width 13.9 % (11.0-16.0); White Blood Count 8.6 X10*3/uL (4.8-10.8)
[2024-04-08 08:23] LABS: Alanine Aminotransferase 16 U/L (0-31); Anion Gap 13 (12-20); Aspartate Amino Transferase 21 U/L (5-31); Bilirubin Total 0.7 mg/dL (0.0-1.0); Blood Urea Nitrogen 14 mg/dL (9-16); Calcium 9.6 mg/dL (8.4-10.2); Carbon Dioxide 28 mmol/L (22-29); Chloride 102 mmol/L (96-108); Cholesterol 216 mg/dL (<200); Estimated Glomerular Filt Rate > 60; Glucose Random 144 mg/dL (60-115); HDL Cholesterol 57 mg/dL (>40); LDL Cholesterol Calculated 132 mg/dL (<100); Potassium 3.3 mmol/L (3.3-5.1); Sodium 140 mmol/L (135-145); Triglycerides 139 mg/dL (<150)
[2024-04-08 08:47] LABS: Thyroid Stimulating Hormone 4.05 uIU/mL (0.32-4.0)
[2024-04-08 11:05] LABS: Alkaline Phosphatase 93 U/L (39-117)
== END 2024-04-08 06:35 | disposition home or self-care (01) ==
LOC: HO.LAB 06:34
PROVIDERS: PCP Physician Assistant; Visit Provider Physician Assistant
DX: Z00.00 Encounter for general adult medical examination without abnormal findings (principal); I10 Essential (primary) hypertension; E78.5 Hyperlipidemia, unspecified; E03.9 Hypothyroidism, unspecified
CPT/HCPCS: 36415; 80053; 80061; 84439; 84443; 85025

== ENCOUNTER 2024-05-01 08:31 | Emergency (ER) | payer OTHER, SELFPAY ==
--- NOTE | ~2024-05-01 | CT_ITS ---
EXAMINATION: CT ABDOMEN AND PELVIS WITH CONTRAST CLINICAL INFORMATION: Questionable small bowel obstruction. COMPARISON: None available. TECHNIQUE: Multidetector volumetric images were obtained from the superior aspect of the liver through the pubic symphysis following administration 85 mL of Omnipaque 350 intravenous contrast. Sagittal and coronal reformatted images were obtained on the technologist's workstation. Oral contrast: No This CT examination was performed using dose optimization techniques as appropriate, variously including the following: *Automated exposure control *Adjustment of mA and/or kV according to patient size (this includes techniques or standardized protocols for targeted exams where dose is matched to indication/reason for exam; i.e. extremities or head) *Use of iterative reconstruction technique DLP: 679 mGy centimeter. FINDINGS: LUNG BASES: No acute airspace disease or gross pulmonary nodules. LIVER, GALLBLADDER, AND BILIARY TREE: Liver measures 17 cm with decreased enhancement pattern. No focal mass. Portal veins, hepatic veins and intrahepatic portion of the IVC are patent. No intrahepatic biliary ductal dilatation. Probable tiny cholelithiasis. No pericholecystic fluid collection or gallbladder wall thickening. Common bile duct measures 4 mm. PANCREAS: No focal mass. No peripancreatic fluid collection. No main pancreatic ductal dilatation. SPLEEN: 9 cm. No focal lesion. ADRENAL GLANDS: No nodular lesions. KIDNEYS AND URETERS: No gross renal mass. No hydronephrosis. No gross nephrolithiasis. BLADDER: Fluid-filled. GASTROINTESTINAL TRACT: There are numerous diverticula throughout the large intestine. Abundant stool. No intestinal obstruction pattern. Gas and fluid-filled nondistended small bowel loops. No gross wall thickening. Appendix is normal. Terminal ileum is normal. No ascites. No pneumoperitoneum. No pneumatosis intestinalis. No peripheral enhancing fluid collections, peritoneal cavity. ABDOMINAL WALL: Small fat-containing umbilical hernia. LYMPH NODES: Nonspecific mildly prominent lymph nodes, mesenteric. VASCULAR: Throughout the abdominal aorta wall and iliac arteries without aneurysm or dissection. Calcifications in the mitral valve. PELVIC VISCERA: No gross masses in the uterus or the adnexa. OSSEOUS STRUCTURES: Multilevel thoracolumbar spondylosis resulting in grade 1 anterolisthesis L4-5 and grade 1 retrolisthesis L3-4 and L1-[address]/CT abdomen pelvis w IV con IMPRESSION: Diverticular disease/diverticulosis. Probable cholelithiasis. Hepatomegaly, mild. Small fat-containing umbilical hernia. Multilevel thoracolumbar spondylosis. Fleischner guidelines were followed. Electronically signed by: Jorgito Mauricio MD 05/01/2024 12:13 PM [facility]
[2024-05-01 08:42] VITALS: BP 152/82; PULSE 113; RESP 18; TEMP 36.4; O2SAT 98; BMI 35.2
--- OUTSIDE RECORDS SUMMARY | 2024-05-01 09:11 | XMS_ITS | Encounter Summary ---
Author Organization [facility], Address [address] [place] [address] Phone Care Team Providers Care Magnet Placer Name Role Phone Austin Rios PA-C Primary Care Provider [phone] Encounter Details Date Type Department Care Team (Late st Contact Info) Description 06/07/2022 Documentation Only [facility] [place] [address] Roseann Lopez [place] [phone] Social History Tobacco Use Types Packs/Day Years [...] Visit [facility] [address] [place] [phone] Remberto Fletcher MD [address] [place] [address] documented as of this encounter Visit Diagnoses Not on filedocumented in this encounter Care Teams Magnet Placer Relationship Specialty Start Date End Date Austin Rios PA-C [address] [place] [phone] PCP - General Physician Consumer Loan Underwriter 02/27/24 documented as of this encounter
--- OUTSIDE RECORDS SUMMARY | 2024-05-01 09:11 | XMS_ITS | Encounter Summary ---
Author Organization [facility], Address [address] [place] [address] Phone Care Team Providers Care Waste Recycler Name Role Phone Austin Rios PA-C Primary Care Provider [phone] Encounter Details Date Type Department Care Team (Late st Contact Info) Description 04/01/2024 Documentation Only [facility], [address] [place] [address] Peyton Mendez [address] [place] [phone] Social History Tobacco Use Types Packs/Day [...] Visit [facility] - John MIL[address] [place] [phone] Remberto Fletcher MD [address] [place] [address] [place] [address] documented as of this encounter Visit Diagnoses Not on filedocumented in this encounter Care Teams Waste Recycler Relationship Specialty Start Date End Date Austin Rios PA-C [address] [place] [address] PCP - General Physician Vegetable Loader 02/27/24 documented as of this encounter
--- OUTSIDE RECORDS SUMMARY | 2024-05-01 09:11 | XMS_ITS ---
Author Organization [facility] madeleine Address [address] [place] [address] Care Team Providers Care Automotive Warranty Administrator Name Role Phone Esme Claudio Primary Care Provider Austin Rios Unavailable [phone] Marya Paris Unavailable [phone] Allergies Allergen (clinical drug ingredient) Drug/Non Drug Allergy documented on EMR Reaction Allergy Type Onset Date Status acetaminophen / oxycodone Percocet itchy mouth, rash Drug Allergy Active Latex LATEX SENSITIVE (uncoded) when wearing gloves Allergy Active REASON FOR VISIT sick since sat w/fevers/chills/nausea, sweating/chills, nausea, vomiting, diarrhea, subjective fever, very restless since Saturday, declines all swabs due to insurance deductible Medications Medication SIG (Take, Route, Frequency, Duration) Notes Start Date End Date Status Ondansetron 4 MG 1 tab(s) orally every 8 hours for 30 days Not-Taking Qvar RediHaler 80 MCG/ACT 1 puff(s) inha led 2 times a day for 90 days 06/11/2018 Active Cozaar 100 MG 1 tab(s) orally once a day for 90 days Active PROzac 40 MG 1 cap(s) orally once a day for 90 days Active Fish Oil 2 capsules Orally once daily for 30 days Active Famotidine 20 MG 2 tablets Orally Once a day Active Vitamin B Complex 1 PO QD Ac tive Mupirocin 2 % 1 micah applied topically 3 times a day for 10 day(s) PRN 03/01/2023 Active Nystatin 688378 UNIT/GM 1 application Externally Twice a day for 14 days 09/11/2023 Not-Taking Naproxen 250 MG 1 tablet with food or milk as needed Orally every 12 hrs for 30 days As needed 03/30/2024 Active Cyclobenzaprine HCl 10 MG 1 tab(s) orall y 3 times a day for 10 days PRN Active Pepcid 20 MG 1 tablet Orally twice a day for 60 days 02/25/2024 Active Levothyroxine Sodium 100 MCG 1 tab(s) or ally once a day for 90 days Active Vitamin D 50 MCG (2000 UT) 1 tablet Oral ly Once a day for 90 days 03/30/2024 Active MiraLax 17 GM/SCOOP 1 scoop mixed with 8 ounces of fluid Orally Once a day 04/13/2024 Active Albuterol Sulfate HFA 108 (90 Base) MCG/ACT 2 puff(s) inhaled 4 times a day prn for 90 days prn 08/19/2017 Active hydroCHLOROthiazide 25 MG 1 tablet in th e morning Orally Once a day for 90 days 01/08/2024 Active LORazepam 1 MG 1 tab(s) orally 1 times a day prn anxiety - sparing use for 90 days PRN 02/13/2024 Active Flonase Allergy Relief 50 MCG/ACT 1 spray in each nostril Nasally Twice a day for 30 days 02/05/2024 Active amLODIPine Besylate 10 MG 1 tablet Orall y Once a day for 90 days 12/05/2023 Active Vital Signs Temperature 97.8 degrees Fahrenheit 04/13/19 25 Blood pressure systolic 110 mm Hg 04/13/19 25 Blood pressure diastolic 70 mm Hg 025 Oximetry 98 04/13/2024 declines weight, oral temp n ot reading Encounters Encounter Location Date Provider Diagnosis [facility] [address] [place] [address] 04/13/2024 Marya Paris Fever, unspecified R50.9 ; Pain abd Generalized R10.84 ; Nausea R11.0 ; Vomiting, unspecified R11.10 and Constipation, unspecified K59.00 Assessments Encounter Date Diagnosis (ICD Code) Assessment Notes Treatment Notes Treatment Clinical Notes Section Notes 04/13/2024 Fever, unspecified (ICD-10 - R50.9) -advised to use Tylenol 1g every eight hours scheduled for the fever and discomfort 04/13/2024 Pain abd Generalized (ICD-10 - R10.84) -If worsens at all, Go to the emergency room. -[place] [facility] [place]- ML 04/13/2024 Nausea (ICD-10 - R11.0) -given a shot of 25 milligram Promethazine Today, has Promethazine suppositories and Zofran at home -She was advised to increase her fluid intake, small sips and take smaller bites while eating. 04/13/2024 Vomiting, unspecified (ICD-10 - R11.10) -Nausea, vomiting, and cramping could be related to constipation. She disagrees with this but is willing to try Miralax, 17 grams in 8 oz of water daily. She can sip it slowly throughout the day to get it in. 04/13/2024 Constipation, unspecified (ICD-10 - K59.00) 04/13/2024 Other -The patient has recurrent symptoms and was hospitalized in 2022 for the same issue. Today, she refuses to go to the ER and also declines any swabs, stating that she knows it is not COVID or the flu. She mentions that she will get her X-ray done once she feels better and will have her blood work done if she can find a ride. Advised patient she's tying my hands and blindfolding me and wanting me to help her, but she's not letting me do any testing that could help us figure out why this keeps recurring. -The patient declined to leave the room until her nausea resolved. Alcohol wipes, which are sometimes used to help with chemotherapy-rela bea nausea, were offered, but she declined. Eventually, she agreed to go to the waiting room. Plan Of Treatment Medication Medication Name Sig Start Date Stop Date Notes MiraLax 17 GM/SCOOP 1 scoop mixed with 8 ounces of fluid Orally Once a day 04/13/2024 Treatment Notes Assessment Notes Fever, unspecified -advised to use Tyle nol 1g every eight hours scheduled for the fever and discomfort Pain abd Generalized -If worsens at all, Go to the emergency room. Nausea -given a shot of 25 milligram Promethazine Today, has Promethazine suppositories and Zofran at home -She was advised to increase her fluid intake, small sips and take smaller bites while eating. Vomiting, unspecified -Nausea, vomiting, and cramping could be related to constipation. She disagrees with this but is willing to try Miralax, 17 grams in 8 oz of water daily. She can sip it slowly throughout the day to get it in. Other -The patient has recurrent symptoms and was hospitalized in 2022 for the same issue. Today, she refuses to go to the ER and also declines any swabs, stating that she knows it is not COVID or the flu. She mentions that she will get her X-ray done once she feels better and will have her blood work done if she can find a ride. Advised patient she's tying my hands and blindfolding me and wanting me to help her, but she's not letting me do any testing that could help us figure out why this keeps recurring. -The patient declined to leave the room until her nausea resolved. Alcohol wipes, which are sometimes used to help with chemotherapy-related nausea, were offered, but she declined. Eventually, she agreed to go to the waiting room. Pending Test Test Name Order Date COMP MET PANEL 04/13/2024 Urinalysis 04/13/2024 Amylase 04/13/2024 Lipase 04/13/2024 CBC AND DIFFERENTIAL 04/13/2024 XRAY : KUB 04/13/2024 Next Appt Details Follow Up: 2 Weeks, recurrin g n/v and abd pain, Reason: Provider Name:Tyler mercado, 05/13/2024 09:00:00 AM, [address], [place], [address], Provider Name:Austin Rios, 0 06/15/2024 01:30:00 PM, [address] [place], [address], Medications Administered Medication Instructions Date of Administration Dosage Notes Promethazine 04/13/2024 25 mg Progress Notes * MOYCHAVOJoseluis KALEEHOLLEYDOB:1960 (63 yo F)Acc No.[id number]:04/13/2024 Patient:?RAND SAMANIEGO Provider:?Marya Paris MD :1960???Age:63 Y???Sex:Female D ate:04/13/2024 Address:[facility] Pcp:Esme Claudio Subjective: * Chief Complaints: * ???1. Sick since sat w/fever s/chills/nausea. 2. sweating/chills, nausea, vomiting, diarrhea, subjective fever, very restless since Saturday. 3. Declines all swabs due to insurance deductible. * HPI: ???Interim History:?Rand, a 63-year-old female patient presenting today for fever, chills and nausea. ?-She feels really bad, experiencing nausea, alternating between feeling very hot and sweating. She believes it's not the flu or COVID, as she had a COVID vaccine a week ago. This has been happening periodically since May or July of 2002, with symptoms including nausea, feeling cold, hot flashes, cramps, and vomiting. ???Gastroenterology:?c/o NAUSEA.? c/o VOMITING.? c/o CONSTIPATION.? -She didn't eat anything yesterday and is currently feeling pain similar to an ulcer. The pain isn't intense right now. She took Famotidine this morning and Maalox, as she hadn't eaten. She tried having some toast, but it triggered vomiting again. -She reports having hard stools that are like farhad. * ROS:?See HPI. Other systems reviewed and noncontributory except for as noted above. * Medical History:?Seasonal al lergies, Pneumonia 08/25/09-and 12/2014-(many pneumonias as a child), Hypothyroidism, HTN 09/2015, Pneumonia NOS, Covid19 02/2022; Covid19 08/2023, NORMAL ECHO 12/2023; CAC score 0 01/2024. * Information Systems Security Officer History:?Personnel Placement Specialist?Dr Crow.?Last pap smear date?2012 normal; ASCUS 2011, HPV+; ASCUS 2009.? * Surgical History:?(2) c-sect ions 1986,1998, abdominal lipoma removed 2003, endometrial ablation--[facility] 07/2007, L rotator cuff tear repair w/ 10/04/09, decompression of left median nerve dr Betancur 06/07/2010, S/P Abdominal Endometrioma ( [place]) 2003, Rt rotator cuff repair- Dr. Lovelace 05/31/2015, LRTI - arthroscopic surgery - Nicole White, [facility], Dr. Sherman 12/22/2020. * Hospitalization/Major Diagno stic Procedure:?[facility] for N/V, abdominal pain 08/22-08/24/22, [facility] ER visit for vomiting 12/2022, [facility] ER for vomiting 02/2024. * Family History:?Father: janeen patrick, diagnosed with Stroke.?Mother: , Breast CA x2-postmenopausal, ?uterine CA (surgery 01/11) and COPD.?Maternal Grand Father: colon ca.?Maternal uncle: colon ca.?Maternal aunt: Ovarian CA, post-menopausal. another one had colon cancer.?Siblings: sister has pacemaker for heart block age 35.?2 brother(s) , 1 sister(s) - healthy. 2 son(s) , 2 daughter(s) - healthy. .? kids-Gabriel Ferro Shannon and Carol Montes. * Social History:?Lives: in [place] alone. Smoking: yes?Former Smoker:?Yes quit 11/2023.?Alcohol: Occasional wine @2x per month. Drug use: rare THC gummy. Marital Status: from [facility] (union representative-he carries the insurance), not dating. Children: 4. 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 Sikhism: Restoration, somewhat practicing- [employer]. Exercise: walks dog daily- - swim/kayak/bike all summer 3-4x week. Sexually active: No. Pets: 1 dog, 1 cat. fun-kayak/bike, read, concerts etc. she has lots of friends. * Medications:?Taking Famotidi ne 20 MG Tablet 2 tablets Orally Once a day , Taking Vitamin B Complex TAB 1 PO QD , Taking Mupirocin 2 % Ointment 1 micah applied topically 3 times a day , Notes to Pharmacist: PRN, Taking Qvar RediHaler 80 MCG/ACT Aerosol Breath Activated 1 puff(s) inhaled 2 times a day , Taking Cozaar 100 MG Tablet 1 tab(s) orally once a day , Taking PROzac 40 MG Capsule 1 cap(s) orally once a day , Taking Fish Oil 2 capsules Orally once daily , Taking Albuterol Sulfate HFA 108 (90 Base) MCG/ACT Aerosol Solution 2 puff(s) inhaled 4 times a day prn , Notes to Pharmacist: prn, Taking hydroCHLOROthiazide 25 MG Tablet 1 tablet in the morning Orally Once a day , Taking LORazepam 1 MG Tablet 1 tab(s) orally 1 times a day prn anxiety - sparing use , Notes to Pharmacist: PRN, Taking Flonase Allergy Relief 50 MCG/ACT Suspension 1 spray in each nostril Nasally Twice a day , Taking amLODIPine Besylate 10 MG Tablet 1 tablet Orally Once a day , Taking Cyclobenzaprine HCl 10 MG Tablet 1 tab(s) orally 3 times a day , Notes to Pharmacist: PRN, Taking Pepcid 20 MG Tablet 1 tablet Orally twice a day , Taking Levothyroxine Sodium 100 MCG Tablet 1 tab(s) orally once a day , Taking Vitamin D 50 MCG (2000 UT) Tablet 1 tablet Orally Once a day , Taking Naproxen 250 MG Tablet 1 tablet with food or milk as needed Orally every 12 hrs As needed, Not-Taking/PRN Nystatin 097068 UNIT/GM Cream 1 application Externally Twice a day , Not-Taking/PRN Ondansetron 4 MG Tablet Disintegrating 1 tab(s) orally every 8 hours , Medication List reviewed and reconciled with the patient * Allergies:?LATEX SENSITIVE: when wearing gloves, Percocet: itchy mouth, rash. Objective: * Vitals:?Initials:jm, Temp: 9 7.8 F, Temp Route: T, HR: 119, PulseOx: 98, BP: 110/70. declines weight, oral temp not reading. * Examination: ???General Examination: ?General Appearance:?Well appearing and in no acute distress.?Skin?Lips and nail beds pink.?HEENT:?Head - NC/AT, clear conjunctiva.?Neck, Thyroid :?supple.?Lungs:?No use of accessory muscles, no audible wheezes, no stridor.?Abdomen?soft, ND, no guarding or rebound, no masses palpated, no hepatosplenomegaly, non-distended, normoactive BS,?NT except epigastric, pt states mildly uncomfortable.?Extremities:?no clubbing, no edema.?Neurologic Exam:?non-focal exam.?Musculoskeletal?Normal gait and station.? Assessment: * Assessment: 1.?Fever, unspecified - R50. 9 (Primary)???2.?Pain abd Generalized - R10.84???3.?Nausea - R11.0???4.?Vomiting, unspecified - R11.10???5.?Constipation, unspecified - K59.00??? Plan: * Treatment: 2.?Pain abd Generalized?LAB: COMP MET PANEL ?LAB: Urinalysis ?LAB: Amylase ?LAB: Lipase ?LAB: CBC AND DIFFERENTIAL ?Imaging: XRAY : KUB Notes: -If worsens at all, Go to the emergency room.?? Clinical Notes: -[place] and [place] [facility] [place]'s email- ML?? 3.?Nausea? Notes: -given a shot of 25 milligram Promethazine Today, has Promethazine suppositories and Zofran at home -She was advised to increase her fluid intake, small sips and take smaller bites while eating.?? 4.?Vomiting, unspecified? Notes: -Nausea, vomiting, and cramping could be related to constipation. She disagrees with this but is willing to try Miralax, 17 grams in 8 oz of water daily. She can sip it slowly throughout the day to get it in.?? 5.?Constipation, unspecified ? Start MiraLax Powder, 17 GM/SCOOP, 1 scoop mixed with 8 ounces of fluid, Orally, Once a day, 510 grams, Refills 11.?? 6.?Others? Notes: -The patient has recurrent symptoms and was hospitalized in 2022 for the same issue. Today, she refuses to go to the ER and also declines any swabs, stating that she knows it is not COVID or the flu. She mentions that she will get her X-ray done once she feels better and will have her blood work done if she can find a ride. Advised patient she's tying my hands and blindfolding me and wanting me to help her, but she's not letting me do any testing that could help us figure out why this keeps recurring. -The patient declined to leave the room until her nausea resolved. Alcohol wipes, which are sometimes used to help with chemotherapy-related nausea, were offered, but she declined. Eventually, she agreed to go to the waiting room.?? * Therapeutic Injections:? Promethazine : 25 mg (Route: Intramuscular) given by Brie Tsang MA on right gluteus (Nausea) * Procedure Codes:?27080 Offic e Visit 30-39 Mins * Follow Up:?2 Weeks, recurrin g n/v and abd pain * Images: Billing Information: * Visit Code:? * Procedure Codes:? 07746 Office Visit 30-39 Mins. Care Plan Details* * Electronic signature of Bo Paris MD on 05/01/2024 at 09:10 AM EST Sign off status: Pending * Provider:?Marya Paris MD Date:?04/13/19 25 Generated for Deanna callaway/Bart/eTemilysmitting on:?05/01/2024 09:10 AM EST History and Physical Notes * HPI (History of Present Illness) Category Sub-Category Detail Notes Category Not es Gastroenterology VOMITING -She didn't eat anything yesterday and is currently feeling pain similar to an ulcer. The pain isn't intense right now. She took Famotidine this morning and Maalox, as she hadn't eaten. She tried having some toast, but it triggered vomiting again. -She reports having hard stools that are like farhad. NAUSEA CONSTIPATION Interim History -She feels r eally bad, experiencing nausea, alternating between feeling very hot and sweating. She believes it's not the flu or COVID, as she had a COVID vaccine a week ago. This has been happening periodically since May or July of 2002, with symptoms including nausea, feeling cold, hot flashes, cramps, and vomiting. Examination Category Sub-Category Detail Notes Category Not es General Examination HEENT: Head - NC/AT, clear c onjunctiva Neck, Thyroid : supple Lungs: No use of accessory muscles, no audible wheezes, no stridor Abdomen soft, ND, no guardin g or rebound, no masses palpated, no hepatosplenomegaly, non-distended, normoactive BS, NT except epigastric, pt states mildly uncomfortable Extremities: no clubbing, no lucio a General Appearance: Well appearing and i n no acute distress Skin Lips and nail beds p ink Neurologic Exam: non-focal exam Musculoskeletal Normal gait and stat ion
--- OUTSIDE RECORDS SUMMARY | 2024-05-01 09:11 | XMS_ITS | Encounter Summary ---
Author Organization [facility], Address [address] [place] [address] Phone Care Team Providers Care Limnologist Name Role Phone Austin Rios PA-C Primary Care Provider [phone] Encounter Details Date Type Department Care Team (Late st Contact Info) Description 04/03/2024 Documentation Only [facility], [address] [place] [address] Peyton Mendez [address] [place] [phone] Social History Tobacco Use Types Packs/Day [...] Visit [facility] - [facility] [place] [address] [place] [phone] Remberto Fletcher MD [address] [place] [address] [place] [address] documented as of this encounter Visit Diagnoses Not on filedocumented in this encounter Care Teams Limnologist Relationship Specialty Start Date End Date Austin Rios PA-C [address] [place] [id number] PCP - General Physician Return To Factory Clerk 02/27/24 documented as of this encounter
--- OUTSIDE RECORDS SUMMARY | 2024-05-01 09:11 | XMS_ITS | Encounter Summary ---
Author Organization [facility], Address [address] [place] [address] Phone Care Team Providers Care Parlor Maid Name Role Phone Austin Rios PA-C Primary Care Provider [phone] Encounter Details Date Type Department Care Team (Late st Contact Info) Description 04/10/2024 Documentation Only [facility] [address] [place] [place] [address] Lisbeth Avilez [address] [phone] Social History Tobacco Use Types Packs/Day [...] Visit [facility] - [facility] [place] [address] [place] [phone] Remberto Fletcher MD [address] [place] [address] [place] [phone] documented as of this encounter Visit Diagnoses Not on filedocumented in this encounter Care Teams Parlor Maid Relationship Specialty Start Date End Date Austin Rios PA-C [address] [place] [phone] PCP - General Physician Sand Temperer 02/27/24 documented as of this encounter
--- OUTSIDE RECORDS SUMMARY | 2024-05-01 09:11 | XMS_ITS | Encounter Summary ---
Author Organization [facility], Address [address] [place] [address] Phone Care Team Providers Care Wirer Street Light Name Role Phone Austin Rios PA-C Primary Care Provider [phone] Encounter Details Date Type Department Care Team (Late st Contact Info) Description 01/15/2024 Documentation Only [facility], [address] [place] [address] [place] [address] [place] [phone] Social History Tobacco Use Types Packs/Day [...] Visit [facility] - [facility] [place] [address] [place] [phone] Remberto Fletcher MD [address] [place] [address] [place] [phone] documented as of this encounter Visit Diagnoses Not on filedocumented in this encounter Care Teams Wirer Street Light Relationship Specialty Start Date End Date Austin Rios PA-C [address] [place] [address] PCP - General Physician Risk Advisor 02/27/24 documented as of this encounter
--- OUTSIDE RECORDS SUMMARY | 2024-05-01 09:11 | XMS_ITS | Encounter Summary ---
Author Organization [facility], Address [address] [place] [address] Phone Care Team Providers Care Business Test Analyst Name Role Phone Austin Rios PA-C Primary Care Provider [phone] Encounter Details Date Type Department Care Team (Late st Contact Info) Description 06/04/2022 Documentation Only [facility] [address] [place] [address] Roseann Lopez PA-C [address] [place] [phone] Social History Tobacco Use Types Packs/Day Years [...] Visit [facility] [address] [place] [address] Remberto Fletcher MD [address] [place] [phone] documented as of this encounter Visit Diagnoses Not on filedocumented in this encounter Care Teams Business Test Analyst Relationship Specialty Start Date End Date Austin Rios PA-C [address] [place] [phone] PCP - General Physician Director Medical Affairs 02/27/24 documented as of this encounter
--- OUTSIDE RECORDS SUMMARY | 2024-05-01 09:11 | XMS_ITS | Encounter Summary ---
Author Organization [facility], Address [address] [place] [address] Phone Care Team Providers Care Phlebotomy Lab Assistant Name Role Phone Austin Rios PA-C Primary Care Provider [phone] Encounter Details Date Type Department Care Team (Late st Contact Info) Description 04/06/2024 Documentation Only [facility] [address] [place] [address] Lisbeth Avilez [address] [place] [phone] Social History Tobacco Use Types Packs/Day [...] Visit [facility] - [facility] [place] [place] [phone] Remberto Fletcher MD [address] [place] [address] [place] [phone] documented as of this encounter Visit Diagnoses Not on filedocumented in this encounter Care Teams Phlebotomy Lab Assistant Relationship Specialty Start Date End Date Austin Rios PA-C [address] [place] [phone] PCP - General Physician It Network Administrator 02/27/24 documented as of this encounter
--- OUTSIDE RECORDS SUMMARY | 2024-05-01 09:12 | XMS_ITS ---
Author Organization [facility] Address [address] [place] [address] Care Team Providers Care Administrative Assistant Name Role Phone Esme Claudio Primary Care Provider Austin Rios Unavailable [phone] Marya Paris Unavailable [phone] REASON FOR VISIT Perphenazine Encounters Encounter Location Date Provider Diagnosis [facility] [place] [address] [place] [address] 04/14/2024 Marya Paris Plan Of Treatment No Information Progress Notes * DANETTEKALEEHOLLEYDOB:1960 (63 yo F)Acc No.[id number]:04/14/2024 Patient:?RAND SAMANIEGO :1960???Age:63 Y???Sex:Female Address:[place] [address] * * Date:?
--- OUTSIDE RECORDS SUMMARY | 2024-05-01 09:12 | XMS_ITS | Clinical Summary ---
Author Organization [facility], Address [address] [place] [address] Phone Care Team Providers Care Mushroom Laborer Name Role Phone Austin Rios PA-C Primary Care Provider [phone] Allergies Active Allergy Reactions Criticality Noted Date [...] Encounters Date Type Department Care Team Description 04/10/2024 Documentation Only [facility] [address] [place] [address] Lisbeth Avilez 04/06/2024 Documentation Only [facility] [address] [place] [address] Lisbeth Avilez 04/03/2024 Documentation Only [facility] [address] [place] [address] Peyton Mendez 04/01/2024 Documentation Only [facility] [address] [place] [address] Peyton Mendez 02/27/2024 10:15 AM EST Office Visit [facility] [address]zad [address] [place] [phone] Remberto Fletcher MD Essential hypertension (Primary Dx) from Last 3 Months Immunizations Name Administration [...] Visit [facility] [place], [facility] - John Baez [address] [facility] [address] [place] [phone] Remberto Fletcher MD [address] [place] [phone] Health Maintenance Due Date Last Done Comments [...] this topic Insurance COMPREHENSIVE BENEFITS Care Teams Mushroom Laborer Relationship Specialty Start Date End Date Austin Rios PA-C [address] [place] [id number] PCP - General Physician Director Organizational 02/27/24
--- OUTSIDE RECORDS SUMMARY | 2024-05-01 09:12 | XMS_ITS ---
Author Organization [facility] madeleine Address [address] [place] [address] Care Team Providers Care Water Safety Teacher Name Role Phone Esme Claudio Primary Care Provider Austin Rios Unavailable [phone] Marya Paris Unavailable [phone] REASON FOR VISIT Perphenazine Encounters Encounter Location Date Provider Diagnosis [facility] [address] [place] [address] 04/14/2024 Marya Paris Plan Of Treatment Next Appt Details Provider Name:Tyler mercado, 05/13/2024 09:00:00 AM, [address] [place], [address], Provider Name:Austin Rios, 0 06/15/2024 01:30:00 PM, [address] [place], [address], Progress Notes * RAND SAMANIEGODOB:1960 (63 yo F)Acc No.[id number]:04/14/2024 Patient:?RAND SAMANIEGO :1960???Age:63 Y???Sex:Female Address:[place] [address] * * Date:?
--- OUTSIDE RECORDS SUMMARY | 2024-05-01 09:12 | XMS_ITS ---
Author Organization [facility] madeleine Address [address] [place] [address] Care Team Providers Care Intelligence Consultant Name Role Phone Esme Claudio Primary Care Provider [phone] Austin Rios Unavailable [phone] REASON FOR VISIT referral Encounters Encounter Location Date Provider Diagnosis [facility] [address] [place] [address] 03/30/2024 Esme Claudio Plan Of Treatment No Information Progress Notes * RAND SAMANIEGODOB:1960 (63 yo F)Acc No.[id number]:03/30/2024 Patient:?VALENTINARAND Huggins :1960???Age:63 Y???Sex:Female Address:[place] [address] * true * Date:? Generated for Printi nilton/Bart/eTransmitting on:?05/01/2024 09:11 AM EST
--- NOTE | 2024-05-01 09:35 | ECG_ITS ---
Test Reason : NAUSEA Blood Pressure : */* mmHG Vent. Rate : 113 BPM Atrial Rate : 113 BPM P-R Int : 150 ms QRS Dur : 94 ms QT Int : 360 ms P-R-T Axes : 35 75 33 degrees QTcB Int : 493 ms Sinus tachycardia Otherwise normal ECG When compared with ECG of 24-Feb-2024 01:44, Nonspecific T wave abnormality no longer evident in Anterior leads Referred By: Adilson Castano Electronically Signed By: BACILIO PICKENS
[2024-05-01] MEDS: 0.9 % Sodium Chloride 1,000 ML 999 ML IV ×2 (09:47→16:36)
[2024-05-01] MEDS: Prochlorperazine Edisylate 10 MG/2 ML VIAL 5 MG IVPUSH ×2 (09:49→14:09)
[2024-05-01 10:12] LABS: MANUAL DIFF FLAG NO
[2024-05-01 10:13] LABS: Basophils Percent Auto 0.4 % (0-2); Eosinophils Absolute Auto 0.1 X10*3/uL (0.0-0.4); Eosinophils Percent Auto 0.8 % (0-4); Hematocrit 40.1 % (37.0-47.0); Hemoglobin 14.1 g/dl (12.0-16.0); Imm Gran Abs Auto 0.06 X10*3/uL (0.00-0.03); Imm Gran Pct Auto 0.6 % (0.0-0.4); Lymphocytes Absolute Auto 1.3 X10*3/uL (1.2-4.9); Mean Corpuscular HGB Conc 35.2 g/dl (31.0-35.0); Mean Corpuscular Volume 85.3 fL (80.0-98.0); Mean Platelet Volume 11.1 fL (9.4-12.3); Monocytes Absolute Auto 0.5 X10*3/uL (0.1-1.2); Monocytes Percent Auto 4.4 % (2-11); Neutrophils Absolute Auto 8.8 x10*3/uL (2.0-8.3); Neutrophils Percent Auto 81.8 % (45-73); Platelet Count 260 X10*3/uL (160-400); Red Cell Distribution Width 13.5 % (11.0-16.0); White Blood Count 10.7 X10*3/uL (4.8-10.8)
[2024-05-01 10:22] LABS: INTERNATIONAL NORM RATIO 0.9 (0.9-1.1); Prothrombin Time 10.1 SEC (10.9-12.4)
--- NOTE | 2024-05-01 10:22 | ED_ITS ---
HPI - General Adult General Chief complaint: Nausea/Vomiting/Diarrhea Stated complaint: vomiting Time Seen by Provider: 05/01/24 09:26 Source: patient Mode of arrival: ambulatory Limitations: no limitations History of Present Illness ED Provider: Adilson Castano HPI narrative: 63 yold female with pmh of HTN and pmh of chronic nausea and vomitting presents to the ED for nuasea that began this morning. Patient denies any abdominal pain, chest pain, shortness of breath, headache, dizziness, slurred speech, facial droop, paralysis of extremities, fever, chills, chest pain, shortness of breath, dizziness, coughing, or any genitourinary symptoms. Patient states having this episode before in the past has been seen multiple times by customer data technician, infectious Disease and primary care and week and they can not find a root cause of her having nausea and vomiting. Patient denies any constipation. Related Data Previous Rx's ?Medication ?Instructions ?Recorded ondansetron 4 mg disintegrating 4 mg PO Q6-8H PRN nausea and 02/24/24 tablet vomiting #10 tabs potassium chloride 10 mEq 10 meq PO DAILY #7 caps 02/24/24 capsule,extended release promethazine 12.5 mg tablet 12.5 mg PO Q6H PRN nausea and 05/01/24 vomiting #8 tabs Allergies Allergy/AdvReac Type Severity Reaction Status Date / Time acetaminophen [From Percocet] Allergy Swelling Verified 05/01/24 08:43 latex Allergy Hives Verified 05/01/24 08:43 oxycodone [From Percocet] Allergy Swelling Verified 05/01/24 08:43 Review of Systems 2 Review of Systems: nausea and vomitting Yes all other systems are reviewed and are negative [facility] Social History Social History Alcohol intake: current Alcohol type: hard liquor Physical Exam ED Vital Signs: Vital Signs - 24 hr 05/01/24 08:42 05/01/24 12:00 05/01/24 16:00 Temperature 97.5 F 98.4 F Pulse Rate 113 H 119 H 119 H Respiratory Rate 18 16 16 Blood Pressure 152/82 H 159/94 H 163/84 H Pulse Oximetry 98 95 93 Oxygen Delivery Method Room Air Room Air Room Air 05/01/24 16:32 05/01/24 18:32 Temperature Pulse Rate 118 H 120 H Respiratory Rate 16 16 Blood Pressure 156/85 H 151/90 H Pulse Oximetry 94 95 Oxygen Delivery Method Room Air Room Air BMI result Body Mass Index 35.2 Const General: cooperative, healthy appearing, comfortable, no acute distress, well developed, alert, awake and Physically active Orientation/consciousness: patient oriented x3 [facility] Head: Yes normal to inspection, Yes No palpable skull fracture present, Yes normocephalic and Yes atraumatic Eyes General: appearance normal, both eyes and all related structures Neck Neck: Yes normal visual inspection, Yes full ROM, Yes no lymphadenopathy, Yes no meningeal signs, Yes trachea midline, Yes supple, No anterior neck swelling and No tender Chest Chest palpation & inspection: normal inspection of the chest and normal palpation of entire chest wall Resp Effort & Inspection: normal respiratory effort and able to speak in complete sentences Auscultation: clear to auscultation bilaterally Cardio Jugular venous distension: no JVD Heart sounds: S1 normal heart sound present and S2 normal heart sound present GI Inspection: Yes normal to inspection Palpation (GI): Soft to palpation, not firm, nontender, no guarding and not rigid General: Yes no CVA tenderness Back/Spine/Pelvis Back: no CVA tenderness and No back tenderness Skin General skin exam: no rashes or lesions noted, elasticity normal and turgor normal Neuro General: patient oriented x3, gait normal, tone normal, moves all extremities, Normal light touch and pain sensation, no meningeal signs, no focal motor deficits and CN's II-XI intact bilaterally Extrem General: Yes normal to inspection, Yes full ROM and Yes capillary refill normal Psych Appearance: grossly normal, well kempt and not disheveled NIH Stroke Scale Internal: Initial- Upon Arrival Level of Consciousness: Alert Level of Consciousness Questions: Answers both questions correctly Level of Consciousness Commands: Performs both tasks correctly Best Gaze: Normal Visual: No visual loss Facial Palsy: Normal Motor Arm (Right): No drift Motor Arm (Left): No drift Motor Leg (Right): No drift Motor Leg (Left): No drift Limb Ataxia: Absent Sensory: Normal Best Language: No aphasia Dysarthia: Normal Extinction and Inattention: No abnormality Score: 0 Medications Administered Discontinued Medications Generic Name Dose Route Start Last Admin Trade Name Freq PRN Reason Stop Dose Admin Sodium Chloride 1,000 mls @ 999 mls/hr 05/01/24 09:35 05/01/24 11:55 Ns IV 05/01/24 10:35 Infused .Q1H1M STA Infusion Sodium Chloride 1,000 mls @ 999 mls/hr 05/01/24 16:32 05/01/24 18:34 Ns IV 05/01/24 17:32 Infused .Q1H1M STA Infusion Iohexol 100 ml 05/01/24 12:00 05/01/24 12:01 Iohexol 350 Mg/Ml 100 Ml Infus..Btl IV 05/01/24 12:01 85 ml ONCE ONE Administration Prochlorperazine Edisylate 5 mg 05/01/24 09:33 05/01/24 09:49 Prochlorperazine Edisylate 10 Mg/2 Ml Vial IVPUSH 05/01/24 09:34 5 mg ONCE ONE Administration Prochlorperazine Edisylate 5 mg 05/01/24 13:46 05/01/24 14:09 Prochlorperazine Edisylate 10 Mg/2 Ml Vial IVPUSH 05/01/24 13:47 5 mg ONCE ONE Administration Promethazine HCl 12.5 mg 05/01/24 15:15 05/01/24 15:41 Promethazine Hcl 25 Mg/Ml Vial IM 05/01/24 15:16 12.5 mg ONCE ONE Administration Medical Decision Making Medical Decision Making MDM Narrative: 63-year-old female presents to ED for nausea and vomiting since 20:00 without any headache, chest pain, shortness of breath, or abdominal pain. Neuro exam intact. EKG labs ordered. Patient states only Compazine works for nausea and vomiting. Compazine ordered. patient states zofran and reglan donot work. 3:06pm: Patient has 2 troponins negative. Negative for any neuro deficits. Patient denies ever having headache or dizziness. No indication for head CT scan. Abdominal CT scan shows possible gallstones but no signs cholecystitis. Patient denies ever having any abdominal pain. Abdomen is soft benign nontender on palpation. Not suspecting cholecystitis. Not suspecting brain bleed. Not suspecting stroke. UA negative for UTI. 3:29pm: Patient given Phenergan IM. Patient passed p.o. challenge. Patient states this happened to her multiple times have seen multiple gastroenterologists and primary care providers and they can't figure out why she has recurrent nausea and emesis. Patient states she has follow-up with autoimmune specialist to see if something autoimmune cause her to vomit. Patient states in the past for Zofran never works. Patient states Reglan also does not work. Patient will be discharged with 2 days' worth only of Phenergan as up-to-date says the Most 72 hourshours. Patient is hyperglycemic of 250. Repeat POC 202. Patient is not in DKA. Patient denies any history of diabetes. Hemoglobin A1c ordered. 4:20pm: Patient's A1c 6.2. Patient's lab results in case was discussed with Dr. Lynch who does not met recommend starting patient on diabetes medication, but patient shows have close follow-up with copy of labs for primary care decide if patient should be started on diabetes medication or have diet controlled. Patient is not in DKA. 5:30: Patient given 2nd bag of fluids for tachycardia. Patient denies any abdominal pain, chest pain, shortness of breath, dizziness,, or any neuro deficits symptoms. Not suspecting PE, stroke, HI,brain bleed, or thyroid storm. Negative for any eye bulging or neck swelling. Patient denies any palpitation or tremors. Patient given copy of labs of imaging. Patient made aware of gallstone on CT scan although no signs of cholecystitis and patient has no abdominal pain. LFt's slightly elevated. Differential Diagnosis Differential Diagnoses: The differential diagnosis associated with the presentation includes (Colitis, SARs, gastroenteritis, HI) Admission/Observation Consideration of admission/observation: Escalation of care including admission/observation considered Lab Data MDM Lab Attestation statement: I reviewed the patient's lab results. 05/01/24 10:07 05/01/24 10:07 Labs: Lab Results 05/01/24 05/01/24 05/01/24 Range/Units 10:07 10:36 11:23 WBC 10.7 (4.8-10.8) X10*3/uL RBC 4.70 (4.20-5.50) X10*6/uL Hgb 14.1 (12.0-16.0) g/dl Hct 40.1 (37.0-47.0) % MCV 85.3 (80.0-98.0) fL MCH 30.0 (27.0-33.0) pg MCHC 35.2 H (31.0-35.0) g/dl RDW 13.5 (11.0-16.0) % Plt Count 260 (160-400) X10*3/uL MPV 11.1 (9.4-12.3) fL Immature Gran % (Auto) 0.6 H (0.0-0.4) % Neut % (Auto) 81.8 H (45-73) % Lymph % (Auto) 12.0 L (20-40) % Walsh % (Auto) 4.4 (2-11) % Eos % (Auto) 0.8 (0-4) % Baso % (Auto) 0.4 (0-2) % Lymph # (Auto) 1.3 (1.2-4.9) X10*3/uL Walsh # (Auto) 0.5 (0.1-1.2) X10*3/uL Eos # (Auto) 0.1 (0.0-0.4) X10*3/uL Baso # (Auto) 0.0 (0.0-0.2) X10*3/uL Abs Immat Gran (auto) 0.06 H (0.00-0.03) X10*3/uL Absolute Neuts (auto) 8.8 H (2.0-8.3) x10*3/uL Absolute Nucleated RBC 0.000 (0.0-0.012) X10*3/uL Nucleated RBC % (auto) 0.0 (0.0-0.2) /100WBC PT 10.1 L (10.9-12.4) SEC INR 0.9 (0.9-1.1) APTT 31.2 (26.0-36.8) SEC Sodium 138 (135-145) mmol/L Potassium 3.6 (3.3-5.1) mmol/L Chloride 103 (96-108) mmol/L Carbon Dioxide 23 (22-29) mmol/L Anion Gap 16 (12-20) BUN 12 (9-16) mg/dL Creatinine 0.68 (0.5-1.4) mg/dL Estim Creat Clear Calc 82.2 Estimated GFR > 60 POC Glucose (60-115) mg/dL Random Glucose 250 H (60-115) mg/dL Estimat Average Glucose 131 mg/dL Hemoglobin A1c % 6.2 H (<6.0) % Calcium 9.8 (8.4-10.2) mg/dL Total Bilirubin 1.3 H (0.0-1.0) mg/dL AST 147 H (5-31) U/L ALT 70 H (0-31) U/L Alkaline Phosphatase 107 (39-117) U/L Troponin I High Sens < 2.7 (<3.5-17.0) ng/L Total Protein 7.5 (6.5-8.0) g/dL Albumin 4.1 (3.5-5.0) g/dL Lipase 13 (8-78) U/L Urine Color Dark Yellow Urine Appearance Clear Urine pH 8.0 (5.0-9.0) Ur Specific [place] 1.020 (1.005-1.025) Urine Protein Negative (Neg-Trace) mg/dL Urine Glucose (UA) >=1000 H (Negative) mg/dL Urine Ketones Negative (Negative) mg/dL Urine Blood Negative (Negative) Urine Nitrite Negative (Negative) Ur Leukocyte Esterase Negative (Negative) Urine RBC 0-2 (0-2) /HPF Urine WBC 0-5 (0-5) /HPF Ur Squamous Epith Cells 0-2 (0-2) /HPF Urine Bacteria None Seen (None Seen) Hyaline Casts 0-2 (0-2) /LPF Influenza Type A (PCR) NEGATIVE (Negative) Influenza Type B (PCR) NEGATIVE (Negative) RSV RNA Qual (PCR) NEGATIVE (Negative) SARS-CoV-2 RNA (RT-PCR) NEGATIVE (Negative) 05/01/24 05/01/24 Range/Units 13:59 15:46 WBC (4.8-10.8) X10*3/uL RBC (4.20-5.50) X10*6/uL Hgb (12.0-16.0) g/dl Hct (37.0-47.0) % MCV (80.0-98.0) fL MCH (27.0-33.0) pg MCHC (31.0-35.0) g/dl RDW (11.0-16.0) % Plt Count (160-400) X10*3/uL MPV (9.4-12.3) fL Immature Gran % (Auto) (0.0-0.4) % Neut % (Auto) (45-73) % Lymph % (Auto) (20-40) % Walsh % (Auto) (2-11) % Eos % (Auto) (0-4) % Baso % (Auto) (0-2) % Lymph # (Auto) (1.2-4.9) X10*3/uL Walsh # (Auto) (0.1-1.2) X10*3/uL Eos # (Auto) (0.0-0.4) X10*3/uL Baso # (Auto) (0.0-0.2) X10*3/uL Abs Immat Gran (auto) (0.00-0.03) X10*3/uL Absolute Neuts (auto) (2.0-8.3) x10*3/uL Absolute Nucleated RBC (0.0-0.012) X10*3/uL Nucleated RBC % (auto) (0.0-0.2) /100WBC PT (10.9-12.4) SEC INR (0.9-1.1) APTT (26.0-36.8) SEC Sodium (135-145) mmol/L Potassium (3.3-5.1) mmol/L Chloride (96-108) mmol/L Carbon Dioxide (22-29) mmol/L Anion Gap (12-20) BUN (9-16) mg/dL Creatinine (0.5-1.4) mg/dL Estim Creat Clear Calc Estimated GFR POC Glucose 202 H (60-115) mg/dL Random Glucose (60-115) mg/dL Estimat Average Glucose mg/dL Hemoglobin A1c % (<6.0) % Calcium (8.4-10.2) mg/dL Total Bilirubin (0.0-1.0) mg/dL AST (5-31) U/L ALT (0-31) U/L Alkaline Phosphatase (39-117) U/L Troponin I High Sens < 2.7 (<3.5-17.0) ng/L Total Protein (6.5-8.0) g/dL Albumin (3.5-5.0) g/dL Lipase (8-78) U/L Urine Color Urine Appearance Urine pH (5.0-9.0) Ur Specific [place] (1.005-1.025) Urine Protein (Neg-Trace) mg/dL Urine Glucose (UA) (Negative) mg/dL Urine Ketones (Negative) mg/dL Urine Blood (Negative) Urine Nitrite (Negative) Ur Leukocyte Esterase (Negative) Urine RBC (0-2) /HPF Urine WBC (0-5) /HPF Ur Squamous Epith Cells (0-2) /HPF Urine Bacteria (None Seen) Hyaline Casts (0-2) /LPF Influenza Type A (PCR) (Negative) Influenza Type B (PCR) (Negative) RSV RNA Qual (PCR) (Negative) SARS-CoV-2 RNA (RT-PCR) (Negative) Independent Interpretation I performed an independent interpretation of an: CT Scan Radiology Impression Discussion of test interpretation with radiology: I have reviewed the radiologist's reading. Independent Historian Clinical information obtained from an independent historian. History obtained from or confirmed by: Other (Patient) Discharge Plan Discharge Clinical Impression: Nausea & vomiting Patient Disposition: Home, Self-Care Instructions: Acute Nausea and Vomiting (ED) Additional Instructions: Return to the ED immediately for any abdominal pain, , inability tolerate solid food/liquid, fever, chills, flank pain, blood in urine, blood in stool, profuse diarrhea, chest pain, shortness of breath, weakness, dizziness, increase thirst, weight loss, or increase urinary freqency or any other concerning symptoms. You will need follow-up with customer data technician, plisse machine operator helper and primary care provider. Your lab work showed a glucose of 250 and A1c of 6.2. You will need to follow-up with your primary care provider to discuss if you need to be started on diabetes medication or chest diet. You were given copy of the labs CT ABDOMEN AND PELVIS WITH CONTRAST CLINICAL INFORMATION: Questionable small bowel obstruction. COMPARISON: None available. TECHNIQUE: Multidetector volumetric images were obtained from the superior aspect of the liver through the pubic symphysis following administration 85 mL of Omnipaque 350 intravenous contrast. Sagittal and coronal reformatted images were obtained on the technologist's workstation. Oral contrast: No This CT examination was performed using dose optimization techniques as appropriate, variously including the following: *Automated exposure control *Adjustment of mA and/or kV according to patient size (this includes techniques or standardized protocols for targeted exams where dose is matched to indication/reason for exam; i.e. extremities or head) *Use of iterative reconstruction technique DLP: 679 mGy centimeter. FINDINGS: LUNG BASES: No acute airspace disease or gross pulmonary nodules. LIVER, GALLBLADDER, AND BILIARY TREE: Liver measures 17 cm with decreased enhancement pattern. No focal mass. Portal veins, hepatic veins and intrahepatic portion of the IVC are patent. No intrahepatic biliary ductal dilatation. Probable tiny cholelithiasis. No pericholecystic fluid collection or gallbladder wall thickening. Common bile duct measures 4 mm. PANCREAS: No focal mass. No peripancreatic fluid collection. No main pancreatic ductal dilatation. SPLEEN: 9 cm. No focal lesion. ADRENAL GLANDS: No nodular lesions. KIDNEYS AND URETERS: No gross renal mass. No hydronephrosis. No gross nephrolithiasis. BLADDER: Fluid-filled. GASTROINTESTINAL TRACT: There are numerous diverticula throughout the large intestine. Abundant stool. No intestinal obstruction pattern. Gas and fluid-filled nondistended small bowel loops. No gross wall thickening. Appendix is normal. Terminal ileum is normal. No ascites. No pneumoperitoneum. No pneumatosis intestinalis. No peripheral enhancing fluid collections, peritoneal cavity. ABDOMINAL WALL: Small fat-containing umbilical hernia. LYMPH NODES: Nonspecific mildly prominent lymph nodes, mesenteric. VASCULAR: Throughout the abdominal aorta wall and iliac arteries without aneurysm or dissection. Calcifications in the mitral valve. PELVIC VISCERA: No gross masses in the uterus or the adnexa. OSSEOUS STRUCTURES: Multilevel thoracolumbar spondylosis resulting in grade 1 anterolisthesis L4-5 and grade 1 retrolisthesis L3-4 and L1-[address]/CT abdomen pelvis w IV con IMPRESSION: Diverticular disease/diverticulosis. Probable cholelithiasis. Hepatomegaly, mild. Small fat-containing umbilical hernia. Multilevel thoracolumbar spondylosis. Fleischner guidelines were followed. Electronically signed by: Jorgito Mauricio MD 05/01/2024 12:13 PM [facility] [place] Dictated By: Jorgito Tai MD Signed By: <Electronically signed by Jorgito Abel MD in OV> Prescriptions: New promethazine 12.5 mg tablet 12.5 mg PO Q6H PRN (Reason: nausea and vomiting) Qty: 8 0RF Rx Instructions: last dose no later than 4 hr before bedtime. No Action ondansetron 4 mg tablet,disintegrating 4 mg PO Q6-8H PRN (Reason: nausea and vomiting) Qty: 10 0RF potassium chloride 10 mEq capsule, extended release 10 meq PO DAILY Qty: 7 0RF Referrals: [facility] [place] [facility] [Provider Group] (Nausea) [facility] [place] [facility] Surgeons [Provider Group] (Cholelithiasis) Austin Rios PA [Primary Care Provider] - (Recurrent nause and vomitting) Stand Alone Forms: Work/School Release Interventions: ED Discharge Assessment Last Done: 05/01/24 18:57 Discharge Date/Time: 05/01/24 18:57 Print Language: Maldivian
[2024-05-01 10:24] LABS: Partial Thromboplastin Time 31.2 SEC (26.0-36.8)
[2024-05-01 10:32] LABS: Alanine Aminotransferase 70 U/L (0-31); Albumin Level 4.1 g/dL (3.5-5.0); Alkaline Phosphatase 107 U/L (39-117); Anion Gap 16 (12-20); Aspartate Amino Transferase 147 U/L (5-31); Bilirubin Total 1.3 mg/dL (0.0-1.0); Blood Urea Nitrogen 12 mg/dL (9-16); Calcium 9.8 mg/dL (8.4-10.2); Carbon Dioxide 23 mmol/L (22-29); Chloride 103 mmol/L (96-108); Creatinine Clr Calc Pharmacy 82.2; Estimated Glomerular Filt Rate > 60; Glucose Random 250 mg/dL (60-115); Lipase 13 U/L (8-78); Potassium 3.6 mmol/L (3.3-5.1); Sodium 138 mmol/L (135-145); Total Protein 7.5 g/dL (6.5-8.0)
[2024-05-01 10:42] LABS: Troponin-I High Sensitivity < 2.7 ng/L (<3.5-17.0)
[2024-05-01 11:29] LABS: Influenza A PCR NEGATIVE (Negative); Influenza B PCR NEGATIVE (Negative); Resp Syncy Virus RNA Qual PCR NEGATIVE (Negative); SARS COV2 PCR INHOUSE NEGATIVE (Negative)
[2024-05-01 11:33] LABS: Appearance Urine Clear; Color Urine Dark Yellow; Glucose Urine UA >=1000 mg/dL (Negative); Leukocyte Esterase Urine Negative (Negative); Nitrite Urine Negative (Negative); UMIC TRIGGER UACC YES; Urine Blood Negative (Negative); Urine Ketones Negative (Negative); Urine Protein Negative (Neg-Trace)
[2024-05-01 11:57] LABS: Bacteria Urine None Seen (None Seen); Hyaline Casts Urine 0-2 /LPF (0-2); RBC Urine 0-2 /HPF (0-2); Squamous Epithelial Cell Urine 0-2 /HPF (0-2); WBC Urine 0-5 /HPF (0-5)
[2024-05-01 12:00] VITALS: BP 159/94; PULSE 119; RESP 16; TEMP 36.9; O2SAT 95
[2024-05-01] MEDS: iohexoL 350 MG/ML 100 ML INFUS..BTL IV (12:01)
[2024-05-01 14:31] LABS: Troponin-I High Sensitivity < 2.7 ng/L (<3.5-17.0)
[2024-05-01] MEDS: Promethazine HCL 25 MG/ML VIAL 12.5 MG IM (15:41)
[2024-05-01 15:49] LABS: Glucose, Whole Blood 202 mg/dL (60-115)
[2024-05-01 15:54] LABS: Estimated Average Glucose 131 mg/dL; Hemoglobin A1C 159.1004 umol/L; Hemoglobin A1c % 6.2 % (<6.0); Total Hemoglobin (HGBA1C) 3573.9843 umol/L
[2024-05-01 16:00] VITALS: BP 163/84; PULSE 119; RESP 16; O2SAT 93
[2024-05-01 16:32] VITALS: BP 156/85; PULSE 118; RESP 16; O2SAT 94
[2024-05-01 18:32] VITALS: BP 151/90; PULSE 120; RESP 16; O2SAT 95
[2024-05-01 18:57] VITALS: BP 151/90; PULSE 120; RESP 16; TEMP -17.7; TEMP 0; O2SAT 95
== END 2024-05-01 18:57 | disposition home or self-care (01) ==
PROVIDERS: Physician Assistant; Emergency Provider Emergency Medicine; PCP Physician Assistant
DX: R11.2 Nausea with vomiting, unspecified (principal); R19.7 Diarrhea, unspecified; R00.0 Tachycardia, unspecified; R10.2 Pelvic and perineal pain; I10 Essential (primary) hypertension; Z79.899 Other long term (current) drug therapy; Z03.818 Encounter for observation for suspected exposure to other biological agents ruled out
CPT/HCPCS: 0241U; 36415; 74177; 80053; 81001; 82947; 83036; 83690; 84484; 85025; 85610; 85730; 93005; 96361; 96372; 96374; 96376; 99284; J0737; J2550; Q9967

== ENCOUNTER → 2024-05-01 09:35 | Outpatient (BNV) | payer OTHER, SELFPAY | PROVIDERS: Emergency Provider Emergency Medicine; PCP Physician Assistant; Visit Provider Internal Medicine | DX: R00.0 Tachycardia, unspecified (principal) | CPT/HCPCS: 93010 ==

== ENCOUNTER → 2024-05-01 11:30 | Outpatient (BNV) | payer OTHER, SELFPAY | PROVIDERS: Emergency Provider Emergency Medicine; PCP Physician Assistant; Visit Provider Radiology Diagnostic Radiology | DX: K57.92 Diverticulitis of intestine, part unspecified, without perforation or abscess without bleeding (principal); K42.9 Umbilical hernia without obstruction or gangrene; M47.895 Other spondylosis, thoracolumbar region | CPT/HCPCS: 74177 ==

== ENCOUNTER 2024-05-20 06:51 | Outpatient (REF) | payer OTHER, SELFPAY ==
[2024-05-20 07:02] LABS: MANUAL DIFF FLAG NO
[2024-05-20 07:13] LABS: Basophils Absolute Auto 0.1 X10*3/uL (0.0-0.2); Basophils Percent Auto 0.5 % (0-2); Eosinophils Absolute Auto 0.1 X10*3/uL (0.0-0.4); Eosinophils Percent Auto 0.5 % (0-4); Hematocrit 42.3 % (37.0-47.0); Hemoglobin 14.8 g/dl (12.0-16.0); Imm Gran Abs Auto 0.09 X10*3/uL (0.00-0.03); Imm Gran Pct Auto 0.6 % (0.0-0.4); Lymphocytes Absolute Auto 3.3 X10*3/uL (1.2-4.9); Lymphocytes Percent Auto 23.2 % (20-40); Mean Corpuscular Hemoglobin 29.9 pg (27.0-33.0); Mean Corpuscular Volume 85.5 fL (80.0-98.0); Monocytes Percent Auto 6.9 % (2-11); Neutrophils Absolute Auto 9.5 x10*3/uL (2.0-8.3); Neutrophils Percent Auto 68.3 % (45-73); Platelet Count 351 X10*3/uL (160-400); Red Blood Count 4.95 X10*6/uL (4.20-5.50); Red Cell Distribution Width 13.9 % (11.0-16.0)
[2024-05-20 07:38] LABS: Alanine Aminotransferase 27 U/L (0-31); Albumin Level 4.3 g/dL (3.5-5.0); Alkaline Phosphatase 79 U/L (39-117); Anion Gap 15 (12-20); Aspartate Amino Transferase 18 U/L (5-31); Blood Urea Nitrogen 24 mg/dL (9-16); Calcium 9.6 mg/dL (8.4-10.2); Carbon Dioxide 27 mmol/L (22-29); Chloride 99 mmol/L (96-108); Estimated Glomerular Filt Rate 27; Glucose Random 153 mg/dL (60-115); Lipase 11 U/L (8-78); Potassium 3.2 mmol/L (3.3-5.1); Sodium 138 mmol/L (135-145); Total Protein 7.2 g/dL (6.5-8.0)
[2024-05-20 07:41] LABS: Amylase 22 U/L (28-100)
== END 2024-05-20 06:52 | disposition home or self-care (01) ==
LOC: HO.LAB 06:51
PROVIDERS: PCP Physician Assistant; Visit Provider Family Medicine
DX: R10.84 Generalized abdominal pain (principal)
CPT/HCPCS: 36415; 80053; 82150; 83690; 85025

== ENCOUNTER 2024-06-22 08:27 | Outpatient (REF) | payer OTHER, SELFPAY ==
--- NOTE | ~2024-06-22 | US_ITS ---
CLINICAL HISTORY: ESSENTIAL HYPERTENSION --- Additional Notes or Special Instructions: htn US renal duplex ultrasound Comparison: None Technique: Real time duplex ultrasound imaging was performed by the coffee blender. Multiple pharmaceutical service representative static images were saved for review. Findings: Aorta: Normal waveform, 117.2 cm/s. Right kidney: Normal size and echotexture, 9.8 cm length. Main renal artery peak systolic velocities (PSV), normal is <180cm/s: Proximal: 110.8 cm/s Mid: 164.8 cm/s Distal: 103.4 cm/s Max Renal PSV/Aorta PSV, normal is <3.5: Normal No pulsus parvus et tardus waveforms or turbulent flow. Max segmental resistive index: 0.66 Patent right renal vein. Left kidney: Normal size and echotexture, 9.5 cm length. Main renal artery peak systolic velocities (PSV), normal is <180cm/s: Proximal: 110.3 cm/s Mid: 214.2 cm/s Distal: 111.4 cm/s Max Renal PSV/Aorta PSV, normal is <3.5: Normal No pulsus parvus et tardus waveforms or turbulent flow. Max segmental resistive index: 0.69. Patent left renal vein. Impression: Elevated peak systolic velocity in the mid left renal artery may indicate stenosis. No other findings to indicate renal artery stenosis. This document has been electronically signed by: Megan Murrieta MD on 06/22/2024 16:21:31
--- NOTE | ~2024-06-22 | US_ITS ---
CLINICAL HISTORY: ESSENTIAL HYPERTENSION --- Additional Notes or Special Instructions: htn US renal duplex ultrasound Comparison: None Technique: Real time duplex ultrasound imaging was performed by the floor installation mechanic. Multiple career services representative static images were saved for review. Findings: Aorta: Normal waveform, 117.2 cm/s. Right kidney: Normal size and echotexture, 9.8 cm length. Main renal artery peak systolic velocities (PSV), normal is <180cm/s: Proximal: 110.8 cm/s Mid: 164.8 cm/s Distal: 103.4 cm/s Max Renal PSV/Aorta PSV, normal is <3.5: Normal No pulsus parvus et tardus waveforms or turbulent flow. Max segmental resistive index: 0.66 Patent right renal vein. Left kidney: Normal size and echotexture, 9.5 cm length. Main renal artery peak systolic velocities (PSV), normal is <180cm/s: Proximal: 110.3 cm/s Mid: 214.2 cm/s Distal: 111.4 cm/s Max Renal PSV/Aorta PSV, normal is <3.5: Normal No pulsus parvus et tardus waveforms or turbulent flow. Max segmental resistive index: 0.69. Patent left renal vein. Impression: Elevated peak systolic velocity in the mid left renal artery may indicate stenosis. No other findings to indicate renal artery stenosis. This document has been electronically signed by: Megan Murrieta MD on 06/22/2024 16:21:31
--- OUTSIDE RECORDS SUMMARY | 2024-06-22 08:52 | XMS_ITS | Encounter Summary ---
Author Organization [facility], Address [address] [place] [address] Phone Care Team Providers Care Reflector Driller And Deburrer Name Role Phone Austin Rios PA-C Primary Care Provider [phone] Encounter Details Date Type Department Care Team (Late st Contact Info) Description 04/01/2024 Documentation Only [facility] [place], [address] [place] [address] Peyton Mendez [address] [place] [phone] Social History Tobacco Use Types Packs/Day [...] Visit [facility] - John MILES [address] [place] [phone] Remberto Fletcher MD [address] [place] [address] [place] [address] documented as of this encounter Visit Diagnoses Not on filedocumented in this encounter Care Teams Reflector Driller And Deburrer Relationship Specialty Start Date End Date Austin Rios PA-C [address] [place] [address] PCP - General Physician Supervisor Fabrication And Assembly 02/27/24 documented as of this encounter
--- OUTSIDE RECORDS SUMMARY | 2024-06-22 08:52 | XMS_ITS ---
Author Organization [facility] madeleine Address [address] [place] [address] Care Team Providers Care Director Process Engineering Name Role Phone Esme Claudio Primary Care Provider Austin Rios Unavailable [phone] Allergies Allergen (clinical drug ingredient) Drug/Non Drug Allergy documented on EMR Reaction Allergy Type Onset Date Status Latex LATEX SENSITIVE (uncoded) when wearing gloves Allergy Active acetaminophen / oxycodone Percocet itchy mouth, rash Drug Allergy Active Results Component Value Reference Range Notes Rapid Strep Reviewed date:06/06/2024 04:59:10 PM Interpretation:Negative Performing Lab: Notes/Report: Negative RAPID STREP negative REASON FOR VISIT sore throat (IH), pt c/o sore throat, swollen tonsils and neck stiffness that began on Thursday 06/01., Pt denies cough, nasal congestion, fevers, HEATON., No prior visits regarding these symptoms Medications Medication SIG (Take, Route, Frequency, Duration) Notes Start Date End Date Status LORazepam 1 MG 1 tab(s) orally 1 times a day prn anxiety - sparing use for 30 days PRN 05/06/2024 Active Phenergan 12.5 MG 1 suppository as needed Rectal every 6 hrs for 30 days 05/05/2024 Active Ondansetron 4 MG 1 tab(s) orally every 8 hours for 30 days Active Nystatin 279305 UNIT/GM 1 application Externally Twice a day for 14 days As needed 09/11/2023 Active Promethazine HCl 25 MG 1 suppository as needed Rectal every 6 hrs for 30 days As needed (Max 50mg per day) Max 50mg per day 05/01/2024 Active Naproxen 250 MG 1 tablet with food or milk as needed Orally every 12 hrs for 30 days As needed 03/30/2024 Active Levothyroxine Sodium 100 MCG 1 tab(s) orally once a day for 90 days Active Cyclobenzaprine HCl 10 MG 1 tab(s) orall y 3 times a day for 10 days PRN Active amLODIPine Besylate 10 MG 1 tablet Orall y Once a day for 90 days 12/05/2023 Active Flonase Allergy Relief 50 MCG/ACT 1 spray in each nostril Nasally Twice a day for 30 days 02/05/2024 Active Albuterol Sulfate HFA 108 (90 Base) MCG/ACT 2 puff(s) inhaled 4 times a day prn for 90 days prn 08/19/2017 Active Fish Oil 2 capsules Orally once daily for 30 days Active PROzac 40 MG 1 cap(s) orally once a day for 90 days Active Cozaar 100 MG 1 tab(s) orally once a day for 90 days Active hydroCHLOROthiazide 25 MG 1 tablet in morning Orally Once a day for 90 days 01/08/2024 Active Qvar RediHaler 80 MCG/ACT 1 puff(s) inha led 2 times a day for 90 days 06/11/2018 Active Mupirocin 2 % 1 micah applied topically 3 times a day for 10 day(s) PRN 03/01/2023 Active Vitamin B Complex 1 PO QD Ac tive Famotidine 20 MG 2 tablets Orally Once a day Active Penicillin V Potassium 500 MG 1 tablet Orally Twice a day for 10 days 06/05/2024 Active Vital Signs Temperature 98.0 degrees Fahrenheit 06/06/19 25 Blood pressure systolic 128 mm Hg 06/06/19 25 Blood pressure diastolic 70 mm Hg 025 Weight 184.2 lbs 06/05/2024 Oximetry 96 06/05/2024 Encounters Encounter Location Date Provider Diagnosis [facility] [address] [place], [place] [address] 06/05/2024 Esme Claudio Sore throat J02.9 and Ned ker inflamed L82.0 Assessments Encounter Date Diagnosis (ICD Code) Assessment Notes Treatment Notes Treatment Clinical Notes Section Notes 06/05/2024 Sore throat (ICD-10 - J02.9) tnder AC LN andsore throat Patient instructed on indications for use of new medications, proper administration, and potential side effects. 06/05/2024 Ned ker inflamed (ICD-10 - L82.0) cryo x 3 w instructions Plan Of Treatment Medication Medication Name Sig Start Date Stop Date Notes Penicillin V Potassium 500 MG 1 tablet O rally Twice a day for 10 days 06/05/2024 Treatment Notes Assessment Notes Sore throat tnder AC LN andsore throat Patient instructed on indications for use of new medications, proper administration, and potential side effects. Ned ker inflamed cryo x 3 w instructi ons Next Appt Details Provider Name:Tyler Lorrie mercado, 06/25/2024 10:30:00 AM, [address] , [place], [address], Provider Name:Austin Rios, 0 09/21/2024 09:15:00 AM, [address], [place], [address], Provider Name:Austin Rios, 0 04/22/2025 09:00:00 AM, [address] [place] [address], [phone], Progress Notes * KALEE SAMANIEGOHOLLEYDOB:1960 (63 yo F)Acc No.[id number]:06/05/2024 Patient:?RAND SAMANIEGO Appointment Provider:?Esmenevaeh arboleda MD :1960???Age:63 Y???Sex:Female D ate:06/05/2024 ?N#:[id number] Address:[address] [place], [place] [phone] Subjective: * Chief Complaints: * ???sore throat (IH)pt c/o so re throat, swollen tonsils and neck stiffness that began on Thursday 06/01.Pt denies cough, nasal congestion, fevers, HEATON.No prior visits regarding these symptoms * HPI: ???Interim History:? worked w a colelague who had strep throat. * Medical History:? * Surgical History:?(2) c-sect ions 1986,1998abdominal lipoma removed 2004endometrial ablation--[place] 07/2007L rotator cuff tear repair w/ 10/04/09decompression of left median nerve dr Betancur 06/07/2010S/P Abdominal Endometrioma ( [place]) 2004Rt rotator cuff repair- Dr. Lovelace 05/31/2015LRTI - arthroscopic surgery - Nicole [facility], Dr. Sherman 12/22/2020 * Hospitalization/Major Diagno stic Procedure:?[facility] for N/V, abdominal pain 08/22-08/24/22[facility] ER visit for vomiting ER for vomiting 02/2024[facility] for abd pain and vomiting 05/01/2024 * Family History:?Father: janeen patrick, diagnosed with [...] use: rare THC gummy. 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 Children: 4. 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 Mu-Ism: Restorationism, somewhat practicing- [employer]. Exercise: walks dog daily- - swim/kayak/bike all summer 3-4x week. Sexually active: No. Pets: 1 dog, 1 cat. fun-kayak/bike, read, concerts etc. she has lots of friends. * Medications:?TakingFamotidin e 20 MG Tablet 2 tablets Orally Once a day Vitamin B Complex TAB 1 PO QD Mupirocin 2 % Ointment 1 micah applied topically 3 times a day , Notes to Pharmacist: PRNQvar RediHaler 80 MCG/ACT Aerosol Breath Activated 1 puff(s) inhaled 2 times a day Cozaar 100 MG Tablet 1 tab(s) orally once a day PROzac 40 MG Capsule 1 cap(s) orally once a day Fish Oil 2 capsules Orally once daily Albuterol Sulfate HFA 108 (90 Base) MCG/ACT Aerosol Solution 2 puff(s) inhaled 4 times a day prn , Notes to Pharmacist: prnhydroCHLOROthiazide 25 MG Tablet 1 tablet in the morning Orally Once a day Flonase Allergy Relief 50 MCG/ACT Suspension 1 spray in each nostril Nasally Twice a day amLODIPine Besylate 10 MG Tablet 1 tablet Orally Once a day Cyclobenzaprine HCl 10 MG Tablet 1 tab(s) orally 3 times a day , Notes to Pharmacist: PRNLevothyroxine Sodium 100 MCG Tablet 1 tab(s) orally once a day Naproxen 250 MG Tablet 1 tablet with food or milk as needed Orally every 12 hrs As neededPromethazine HCl 25 MG Suppository 1 suppository as needed Rectal every 6 hrs As needed (Max 50mg per day), Notes to Pharmacist: Max 50mg per dayNystatin 121415 UNIT/GM Cream 1 application Externally Twice a day As neededOndansetron 4 MG Tablet Disintegrating 1 tab(s) orally every 8 hours Phenergan 12.5 MG Suppository 1 suppository as needed Rectal every 6 hrs LORazepam 1 MG Tablet 1 tab(s) orally 1 times a day prn anxiety - sparing use , Notes to Pharmacist: PRNMedication List reviewed and reconciled with the patientTaking Famotidine 20 MG Tablet 2 tablets Orally Once a day Taking Vitamin B Complex TAB 1 PO QD Taking Mupirocin 2 % Ointment 1 micah applied topically 3 times a day , Notes to Pharmacist: PRNTaking Qvar RediHaler 80 MCG/ACT Aerosol Breath Activated 1 puff(s) inhaled 2 times a day Taking Cozaar 100 MG Tablet 1 tab(s) orally once a day Taking PROzac 40 MG Capsule 1 cap(s) orally once a day Taking Fish Oil 2 capsules Orally once daily Taking Albuterol Sulfate HFA 108 (90 Base) MCG/ACT Aerosol Solution 2 puff(s) inhaled 4 times a day prn , Notes to Pharmacist: prnTaking hydroCHLOROthiazide 25 MG Tablet 1 tablet in the morning Orally Once a day Taking Flonase Allergy Relief 50 MCG/ACT Suspension 1 spray in each nostril Nasally Twice a day Taking amLODIPine Besylate 10 MG Tablet 1 tablet Orally Once a day Taking Cyclobenzaprine HCl 10 MG Tablet 1 tab(s) orally 3 times a day , Notes to Pharmacist: PRNTaking Levothyroxine Sodium 100 MCG Tablet 1 tab(s) orally once a day Taking Naproxen 250 MG Tablet 1 tablet with food or milk as needed Orally every 12 hrs As neededTaking Promethazine HCl 25 MG Suppository 1 suppository as needed Rectal every 6 hrs As needed (Max 50mg per day), Notes to Pharmacist: Max 50mg per dayTaking Nystatin 241780 UNIT/GM Cream 1 application Externally Twice a day As neededTaking Ondansetron 4 MG Tablet Disintegrating 1 tab(s) orally every 8 hours Taking Phenergan 12.5 MG Suppository 1 suppository as needed Rectal every 6 hrs Taking LORazepam 1 MG Tablet 1 tab(s) orally 1 times a day prn anxiety - sparing use , Notes to Pharmacist: PRNMedication List reviewed and reconciled with the patient * Allergies:?LATEX SENSITIVE: when wearing glovesPercocet: itchy mouth, rashno[Allergies Verified] Objective: * Vitals:?Initials:ADA, Wt: 184 .2 lbs, Temp: 98.0 F, Temp Route: PO, HR: 114, PulseOx: 96, BP: 128/70. * Examination: ???General Examination: ?General Appearance:?mildly ill, well nourished and hydrated.?Skin?right shoulder w? cm hyperkeratotic plaque.?HEENT:?Head - NC/AT, clear conjunctiva, TM's clear and flat bilaterally, no sinus tenderness, Post Nasal Drip noted, erythema on pharyngeal wall, no exudates.?Neck, Thyroid :?supple, + tender bilat AC?lymphadenopathy.?Chest:?normal shape and expansion.?Heart:?normal S1S2.?Lungs:?coarse throughout with good air exchange bilaterally.? Assessment: * Assessment: 1.?Sore throat - J02.9 (Prim alyssa)???2.?Ned ker inflamed - L82.0???Specify :right shoulder? Plan: * Treatment: ? Value Reference Range ?RAPID STREP negative Notes: tnder AC LN andsore throat Patient instructed on indications for use of new medications, proper administration, and potential side effects.??2.?Ned ker inflamed? Notes: cryo x 3 w instructions?? * Procedure Codes:?54996 RAPID STREP, Modifiers: QW 66378 SPECIMEN [id number] CRYO WARTS, 1-14, BENIGN * Images: Billing Information: * Visit Code:? 56585 Office Visit, Established Pt. * Procedure Codes:? 77337 RAPID STREP. Modifiers: QW 62161 SPECIMEN HANDLING. 04951 CRYO WARTS, 1-14, BENIGN. Care Plan Details* * Sign off status: Completed true * Appointment Provider:?Dee Claudio MD Date:?06/05/2024 Generated for Printing/Faxing/eTransmitting on:?06/22/2024 08:51 AM EDT History and Physical Notes * HPI (History of Present Illness) Category Sub-Category Detail Notes Category Not es Interim History worked w a brii pito who had strep throat Examination Category Sub-Category Detail Notes Category Not es General Examination HEENT: Head - NC/AT , clear conjunctiva, TM's clear and flat bilaterally, no sinus tenderness, Post Nasal Drip noted, erythema on pharyngeal wall, no exudates Neck, Thyroid : supple, + tender justus at AC lymphadenopathy Heart: normal S1S2 Lungs: coarse throughout wi th good air exchange bilaterally General Appearance: mildly ill, well nou rished and hydrated Skin right shoulder w cm hyperkeratotic plaque Chest: normal shape and exp ansion
--- OUTSIDE RECORDS SUMMARY | 2024-06-22 08:52 | XMS_ITS | Encounter Summary ---
Author Organization [facility], Address [address] [place] [address] Phone Care Team Providers Care Legal Director Name Role Phone Austin Rios PA-C Primary Care Provider [phone] Encounter Details Date Type Department Care Team (Late st Contact Info) Description 04/06/2024 Documentation Only [facility] [address] [address] Lisbeth Avilez [address] [place] [phone] Social History Tobacco Use Types Packs/Day [...] Of [facility] - John MILES [address] [place] [phone] Remberto Fletcher MD [address] [place] [address] [place] [phone] documented as of this encounter Visit Diagnoses Not on filedocumented in this encounter Care Teams Legal Director Relationship Specialty Start Date End Date Austin Rios PA-C [address] [place] [address] PCP - General Physician Sexual Assault Counsellor 02/27/24 documented as of this encounter
--- OUTSIDE RECORDS SUMMARY | 2024-06-22 08:52 | XMS_ITS | Encounter Summary ---
Author Organization [facility] [place], Address [address] [place] [address] Phone Care Team Providers Care Byproducts Maker Name Role Phone Austin Rios PA-C Primary Care Provider [phone] Encounter Details Date Type Department Care Team (Late st Contact Info) Description 01/15/2024 Documentation Only [facility], [address] [place] [address] [place] [address] [place] [phone] Social History Tobacco Use Types Packs/Day [...] Visit [facility] - John MILES [address] [place] [phone] Remberto Fletcher MD [address] [place] [address] [place] [phone] documented as of this encounter Visit Diagnoses Not on filedocumented in this encounter Care Teams Byproducts Maker Relationship Specialty Start Date End Date Austin Rios PA-C [address] [place] [address] PCP - General Physician Agronomy Technician 02/27/24 documented as of this encounter
--- OUTSIDE RECORDS SUMMARY | 2024-06-22 08:52 | XMS_ITS | Encounter Summary ---
Author Organization [facility], Address [address] [place] [address] Phone Care Team Providers Care Procurement Manager Name Role Phone Austin Rios PA-C Primary Care Provider [phone] Encounter Details Date Type Department Care Team (Late st Contact Info) Description 06/04/2022 Documentation Only [facility] [address] [place] [address] Roseann Lopez PA-C [address] [place] [phone] Social History Tobacco Use Types Packs/Day Years [...] Visit [facility] [address] [place] [address] Remberto Fletcher MD [address] [place] [phone] documented as of this encounter Visit Diagnoses Not on filedocumented in this encounter Care Teams Procurement Manager Relationship Specialty Start Date End Date Autsin Rios PA-C [address] [place] [address] PCP - General Physician [address] Bailiff 02/27/24 documented as of this encounter
--- OUTSIDE RECORDS SUMMARY | 2024-06-22 08:52 | XMS_ITS | Encounter Summary ---
Author Organization [facility] [place], Address [address] [place] [address] Phone Care Team Providers Care Naprapath Name Role Phone Austin Rios PA-C Primary Care Provider [phone] Encounter Details Date Type Department Care Team (Late st Contact Info) Description 04/10/2024 Documentation Only [facility] [address] [place] [address] Lisbeth Avilez [address] [place] [phone] Social History Tobacco Use Types Packs/Day [...] Visit [facility] - John MILES [address] [place] [phone] Remberto Fletcher MD [address] [place] [address] [place] [phone] documented as of this encounter Visit Diagnoses Not on filedocumented in this encounter Care Teams Naprapath Relationship Specialty Start Date End Date Austin Rios PA-C [address] [place] [phone] PCP - General Physician Patent Leather Sorter 02/27/24 documented as of this encounter
--- OUTSIDE RECORDS SUMMARY | 2024-06-22 08:52 | XMS_ITS | Encounter Summary ---
Author Organization [facility] [place], Address [address] [place] [address] Phone Care Team Providers Care Acquisition Marketing Coordinator Name Role Phone Austin Rios PA-C Primary Care Provider [phone] Encounter Details Date Type Department Care Team (Late st Contact Info) Description 04/03/2024 Documentation Only [facility] [place], [address] [address] Peyton Mendez [address] [place] [phone] Social History Tobacco Use Types Packs/Day [...] Visit [facility] - John MIL[address] [place] [phone] Remberto Fletcher MD [address] [place] [address] [place] [address] documented as of this encounter Visit Diagnoses Not on filedocumented in this encounter Care Teams Acquisition Marketing Coordinator Relationship Specialty Start Date End Date Austin Rios PA-C [address] [place] [address] PCP - General Physician Cigar Packing Examiner 02/27/24 documented as of this encounter
--- OUTSIDE RECORDS SUMMARY | 2024-06-22 08:52 | XMS_ITS | Encounter Summary ---
Author Organization [facility] [place], Address [address] [place] [address] Phone Care Team Providers Care Auto Phone Installer Name Role Phone Austin Rios PA-C Primary Care Provider [phone] Encounter Details Date Type Department Care Team (Late st Contact Info) Description 06/07/2022 Documentation Only [facility] [address] [place] [address] Roseann Lopez PA-[email or web address] [phone] Social History Tobacco Use Types Packs/Day Years [...] Visit [facility] [address] [place] [phone] Remberto Fletcher MD [address] [place] [address] documented as of this encounter Visit Diagnoses Not on filedocumented in this encounter Care Teams Auto Phone Installer Relationship Specialty Start Date End Date Austin Rios PA-C [address] [place] [phone] PCP - General Physician Abstract Clerk 02/27/24 documented as of this encounter
--- OUTSIDE RECORDS SUMMARY | 2024-06-22 08:53 | XMS_ITS | Clinical Summary ---
Author Organization [facility], Address [address] [place] [address] Phone Care Team Providers Care Underwriting Specialist Name Role Phone Austin Rios PA-C Primary Care Provider [phone] Allergies Active Allergy Reactions Criticality Noted Date [...] Encounters Date Type Department Care Team Description 05/01/2024 Telephone [facility] [address] [place] [address] Allan Veloz MA 04/10/2024 Documentation Only [facility] [address] [place] [address] Lisbeth Avilez 04/06/2024 Documentation Only [facility] [address] [place] [address] Lisbeth Avilez 04/03/2024 Documentation Only [facility] [address] [place] [address] Peyton Mendez 04/01/2024 Documentation Only [facility] [address] [place] [address] Peyton Mendez from Last 3 Months Immunizations Immunization Administration Dates Next Due Hep A, Unspecified [...] Visit [facility] [place], [facility] - [address] [facility] [address] [place] [phone] Remberto Fletcher MD [address] [place] [address] Health Maintenance Due Date Last Done Comments Breast Cancer Screening 1960 Pneumococcal Vaccine: 50+ Years (1 of 2 - PCV) 1981 Colorectal Cancer Screening: Annual FOBT 09/18/2011 Colorectal Cancer Screening: Colonoscopy 09/18/2011 Colorectal Cancer Screening: Sigmoidoscopy 09/18/2011 Influenza Vaccine (Season Ended) 2024 Hepatitis B Vaccine Aged Out 01/23/1992, 05/23/1991, 03/24/1991 No longer eligible based on patient's age to complete this topic Insurance Comprehensive Benefits Care Teams Underwriting Specialist Relationship Specialty Start Date End Date Austin Rios PA-C [address] [place] [address] PCP - General Physician Investment Recovery Technician 02/27/24
--- OUTSIDE RECORDS SUMMARY | 2024-06-22 08:53 | XMS_ITS ---
Author Organization [facility] madeleine Address [address] [place] [address] Care Team Providers Care Cra Officer Name Role Phone Esme Claudio Primary Care Provider Austin Rios Unavailable [phone] Allergies Allergen (clinical drug ingredient) Drug/Non Drug Allergy documented on EMR Reaction Allergy Type Onset Date Status acetaminophen / oxycodone Percocet itchy mouth, rash Drug Allergy Active Latex LATEX SENSITIVE (uncoded) when wearing gloves Allergy Active Reason For Referral Reason Joint pains, episodi c Diagnosis 1 Joint pains (M25.50) Referral Organization [facility] NO Referring Provider First Name Austin Referring Provider Last Name Gabriel Referring Provider [facility]erred Provider [facility], Rheumatology Referred Provider Specialty Rheumatology General Notes Austin Rios 025 01:54:55 PM >fax MGB ID note with referral, Marya Catherine 06/18/2024 12:12:46 PM > Referral faxed to: [phone] Clinical Notes Provider Name: [facility], Rheumatology, Provider ID Number: , Provider UPIN: , Provider NPI: , Provider Facility: , Provider Speciality: Rheumatology, Address1: [address] [place] [address] , Address2: [address], [place], [facility], Zip: [place], [address], , Appt. Date/Time: , Referral Priority Routine REASON FOR VISIT f/u HTN (IH), imms- gregory horn, hoping to get adhd med Medications Medication SIG (Take, Route, Frequency, Duration) Notes Start Date End Date Status Levothyroxine Sodium 100 MCG 1 tab(s) orally once a day for 90 days Active Naproxen 250 MG 1 tablet with food or milk as needed Orally every 12 hrs for 30 days As needed 03/30/2024 Active amLODIPine Besylate 10 MG 1 tablet Orall y Once a day for 90 days 12/05/2023 Active Cyclobenzaprine HCl 10 MG 1 tab(s) orall y 3 times a day for 10 days PRN Active Flonase Allergy Relief 50 MCG/ACT 1 spray in each nostril Nasally Twice a day for 30 days 02/05/2024 Active Albuterol Sulfate HFA 108 (90 Base) MCG/ACT 2 puff(s) inhaled 4 times a day prn for 90 days prn 08/19/2017 Active hydroCHLOROthiazide 25 MG 1 tablet in e morning Orally Once a day for 90 days 01/08/2024 Active PROzac 40 MG 1 cap(s) orally once a day for 90 days Active Fish Oil 2 capsules Orally once daily for 30 days Active Cozaar 100 MG 1 tab(s) orally once a day for 90 days Active Qvar RediHaler 80 MCG/ACT 1 puff(s) inha led 2 times a day for 90 days 06/11/2018 Active Adderall XR 30 MG 1 capsule in the morning Orally Once a day for 30 days 06/15/2024 Active Vitamin B Complex 1 PO QD Ac tive Mupirocin 2 % 1 micah applied topically 3 times a day for 10 day(s) PRN 03/01/2023 Active Famotidine 20 MG 2 tablets Orally Once a day Active LORazepam 1 MG 1 tab(s) orally 1 times a day prn anxiety - sparing use for 30 days PRN 05/06/2024 Active Ondansetron 4 MG 1 tab(s) orally every 8 hours for 30 days Active Phenergan 12.5 MG 1 suppository as needed Rectal every 6 hrs for 30 days 05/05/2024 Active Nystatin 847857 UNIT/GM 1 application Externally Twice a day for 14 days As needed 09/11/2023 Active Penicillin V Potassium 500 MG 1 tablet Orally Twice a day for 10 days 06/05/2024 Active Promethazine HCl 25 MG 1 suppository as needed Rectal every 6 hrs for 30 days As needed (Max 50mg per day) Max 50mg per day 05/01/2024 Active Vital Signs Temperature 97.2 degrees Fahrenheit 06/16/19 25 Blood pressure systolic 142 mm Hg 06/16/19 25 Blood pressure diastolic 70 mm Hg 025 Weight 186 lbs 06/15/2024 Oximetry 99 06/15/2024 Encounters Encounter Location Date Provider Diagnosis [facility] [address] [place], [place] [address] 06/15/2024 Austin Rios Nausea and/or vomiti ng R11.2 ; HTN I10 ; Joint pains M25.50 and ADHD, unspecified type F90.9 Assessments Encounter Date Diagnosis (ICD Code) Assessment Notes Treatment Notes Treatment Clinical Notes Section Notes 06/15/2024 Nausea and/or vomiting (ICD-10 - R11.2) Episodic issue for multiple years now. Reports has been feeling okay lately and no recent episodes for past few months. However very disruptive when having episodes that can lead to ED evals, in ability to work. reviewed prior GI note and ID note. She never recalls an MRE being done as indicated by prior GI note. Patient will see [facility] next month for consult and will discuss this and possible MRA further with GI specialist Also refer to rheumatology per ID recommendation as noted below 06/15/2024 HTN (ICD-10 - I10) Restart the HCTZ , readings have been very good lately but higher today likely due to not taking medication and increased stress, noticed issue with car earlier today. Has nephrology appt next week. Follow up closely. 06/15/2024 Joint pains (ICD-10 - M25.50) Gets chills, joint pains, nausea, vomiting, episodically as discussed above. Referral to small wind energy installer made as discussed 06/15/2024 ADHD, unspecified type (ICD-10 - F90.9) Having hard time functioning at home and work since stopping the adderall. Would like to restart. Aware of risks of elevated BP with medication and she will check BP reguarly at work and follow up if high readings or any issues/side effects Plan Of Treatment Medication Medication Name Sig Start Date Stop Date Notes Adderall XR 30 MG 1 capsule in the mor juan alberto Orally Once a day for 30 days 06/15/2024 Treatment Notes Assessment Notes Nausea and/or vomiting Episodic issue for multiple years now. Reports has been feeling okay lately and no recent episodes for past few months. However very disruptive when having episodes that can lead to ED evals, in ability to work. reviewed prior GI note and ID note. She never recalls an MRE being done as indicated by prior GI note. Patient will see [facility] next month for consult and will discuss this and possible MRA further with GI specialist Also refer to rheumatology per ID recommendation as noted below HTN Restart the HCTZ , r eadings have been very good lately but higher today likely due to not taking medication and increased stress, noticed issue with car earlier today. Has nephrology appt next week. Follow up closely. Joint pains Gets chills, joint p ains, nausea, vomiting, episodically as discussed above. Referral to small wind energy installer made as discussed ADHD, unspecified type Having hard time functioning at home and work since stopping the adderall. Would like to restart. Aware of risks of elevated BP with medication and she will check BP reguarly at work and follow up if high readings or any issues/side effects Referrals Referral Date Details 06/15/2024 06/15/2024, Reilly wilcox ins, episodic, Rheumatology [facility] Next Appt Details Follow Up: book f/u adhd 3 m [facility], book CPE apr 2025, Reason: Provider Name:Tyler mercado, 06/25/2024 10:30:00 AM, [address], [place], [address], Provider Name:Austin Rios, 0 09/21/2024 09:15:00 AM, [address] [place], [address], Provider Name:Austin Rios, 0 04/22/2025 09:00:00 AM, [address] [place], [address], Progress Notes * MOYKALEE HERNANDEZHOLLEYDOB:1960 (63 yo F)Acc No.[id number]:06/15/2024 Progress Note Patient:?RAND SAMANIEGO Appointment Provider:?ANTONELLA Goel :1960???Age:63 Y???Sex:Female S upervising Provider:Esme Claudio MD Date:06/15/2024 ?N#:[id number] Address:[facility] Pcp:Esme Claudio Subjective: * Chief Complaints: * ???1. f/u HTN (IH). 2. Imms- utd, mb. 3. Hoping to get adhd med. * HPI: ???Interim History:?63 year old female presents for follow up Has been feeling okay. No recent episodes Per chart review of prior GI note from [facility]. Upper endoscopy and colonoscopy were non diagnostic of her vomiting, nausea, weakness episodes. MRE was advised to complete work up and they recommended consideration of neurology, rheumatology, endocrine, and possibly ID consults to assess these episodes further.? Patient did have ID consult per prior PCP. She saw [facility] [place] for infectious disease consult. They did not find a clear cause based on their extensive work up. Inectious disease recommended rheumatology.? Prior PCP [employer] was prescribing adderall for management of ADHD. i cant complete a project . Falling behind with tasks. Reports BPs have been running well lately. Has not taken HCTZ last 3 days, ran out and worked all weekend. She checks BP regularly at work 'low 120s over 70s'. Has kidney US scheduled for next week. Ordered by Dr Fletcher. She has not seen a rheumoatlogist before. She was referred to small wind energy installer and they declined to see her for nausea/vomiting. She also gets joint pains.? Has upcoming appt 08/01 with [facility]. * ROS:?See HPI. Other systems reviewed and noncontributory except for as noted above . * Medical History:?Seasonal al lergies, Pneumonia 08/25/09-and 12/2014-(many pneumonias as a child), Hypothyroidism, HTN 09/2015, Pneumonia NOS, Covid19 02/2022; Covid19 08/2023, NORMAL ECHO 12/2023; CAC score 0 01/2024. * Surgical History:?(2) c-sect ions 1986,1998, abdominal lipoma removed 2003, endometrial ablation--Raymond 07/2007, L rotator cuff tear repair w/ 10/04/09, decompression of left median nerve dr Betancur 06/07/2010, S/P Abdominal Endometrioma ( Leyla) 2003, Rt rotator cuff repair- Dr. Lovelace 05/31/2015, LRTI - arthroscopic surgery - Nicole Sarmiento Pitman [facility], Dr. Sherman 12/22/2020. * Hospitalization/Major Diagno stic Procedure:?[facility] for N/V, abdominal pain 08/22-08/24/22, [facility] ER visit for vomiting 12/2022, [facility] ER for vomiting 02/2024, [facility] for abd pain and vomiting 05/01/2024. * Family History:?Father: janeen patrick, diagnosed with [...] use: rare THC gummy. 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 Children: 4. 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 Hoahaoism: Hindu, somewhat practicing- [facility]. Exercise: walks dog daily- - swim/kayak/bike all [...] morning Orally Once a day , Taking Flonase Allergy Relief 50 MCG/ACT Suspension 1 spray in each nostril Nasally Twice a day , Taking amLODIPine Besylate 10 MG Tablet 1 tablet Orally Once a day , Taking Cyclobenzaprine HCl 10 MG Tablet 1 tab(s) orally 3 times a day , Notes to Pharmacist: PRN, Taking Levothyroxine Sodium 100 MCG Tablet 1 tab(s) orally once a day , Taking Naproxen 250 MG Tablet 1 tablet with food or milk as needed Orally every 12 hrs As needed, Taking Promethazine HCl 25 MG Suppository 1 suppository as needed Rectal every 6 hrs As needed (Max 50mg per day), Notes to Pharmacist: Max 50mg per day, Taking Nystatin 100247 UNIT/GM Cream 1 application Externally Twice a day As needed, Taking Ondansetron 4 MG Tablet Disintegrating 1 tab(s) orally every 8 hours , Taking Phenergan 12.5 MG Suppository 1 suppository as needed Rectal every 6 hrs , Taking LORazepam 1 MG Tablet 1 tab(s) orally 1 times a day prn anxiety - sparing use , Notes to Pharmacist: PRN, Taking Penicillin V Potassium 500 MG Tablet 1 tablet Orally Twice a day , Medication List reviewed and reconciled with the patient * Allergies:?LATEX SENSITIVE: when wearing gloves, Percocet: itchy mouth, rash. Objective: * Vitals:?Initials:ST, Wt: 186 lbs, Temp: 97.2 F, Temp Route: T, HR: 112, PulseOx: 99, BP: 142/70. * Examination: ???General Examination: ?General Appearance:?Well appearing and in no acute distress.?Skin?Lips and nail beds pink.?HEENT:?Head - NC/AT, clear conjunctivae, voice clear, handling secretions.?Neck, Thyroid :?supple.?Lungs:?No use of accessory muscles, no audible wheezes, no stridor.?Extremities:?no clubbing, no edema.?Neurologic Exam:?non- focal exam.?Musculoskeletal?Normal gait and station.? Assessment: * Assessment: 1.?Nausea and/or vomiting - R11.2 (Primary)???2.?HTN - I10???3.?Joint pains - M25.50???4.?ADHD, unspecified type - F90.9??? Plan: * Treatment: 2.?HTN? Notes: Restart the HCTZ , readings have been very good lately but higher today likely due to not taking medication and increased stress, noticed issue with car earlier today. Has nephrology appt next week. Follow up closely. ?? 3.?Joint pains? Notes: Gets chills, joint pains, nausea, vomiting, episodically as discussed above. Referral to small wind energy installer made as discussed? Referral To:Rheumatology [facility]??Rheumatology ?Reason:Joint pains, episodic 4.?ADHD, unspecified type? Start Adderall XR Capsule Extended Release 24 Hour, 30 MG, 1 capsule in the morning, Orally, Once a day, 30 days, 30 Capsule, Refills 0.?? Notes: Having hard time functioning at home and work since stopping the adderall. Would like to restart. Aware of risks of elevated BP with medication and she will check BP reguarly at work and follow up if high readings or any issues/side effects?? * Follow Up:?book f/u adhd 3 m [facility], book CPE apr 2025 * Images: Billing Information: * Visit Code:? 43178 Office Visit, Established Pt. * Procedure Codes:? Care Plan Details* * Electronic signature of Vivienne Claudio MD on 06/22/2024 at 08:52 AM EDT Sign off status: Pending * Appointment Provider:?ANTONELLA Goel Date :?06/15/2024 Generated for Deanna callaway/Bart/eTransmitting on:?06/22/2024 08:52 AM EDT History and Physical Notes * HPI (History of Present Illness) Category Sub-Category Detail Notes Category Not es Interim History 63 year old female presents for follow up Has been feeling okay. No recent episodes Per chart review of prior GI note from [facility]. Upper endoscopy and colonoscopy were non diagnostic of her vomiting, nausea, weakness episodes. MRE was advised to complete work up and they recommended consideration of neurology, rheumatology, endocrine, and possibly ID consults to assess these episodes further. Patient did have ID consult per prior PCP. She saw [facility] in [place] for infectious disease consult. They did not find a clear cause based on their extensive work up. Inectious disease recommended rheumatology. Prior PCP [employer] was prescribing adderall for management of ADHD. i cant complete a project . Falling behind with tasks. Reports BPs have been running well lately. Has not taken HCTZ last 3 days, ran out and worked all weekend. She checks BP regularly at work 'low 120s over 70s'. Has kidney US scheduled for next week. Ordered by Dr Fletcher. She has not seen a rheumoatlogist before. She was referred to small wind energy installer and they declined to see her for nausea/vomiting. She also gets joint pains. Has upcoming appt 08/01 with [facility] Examination Category Sub-Category Detail Notes Category Not es General Examination HEENT: Head - NC/AT , clear conjunctivae, voice clear, handling secretions Neck, Thyroid : supple Lungs: No use of accessory muscles, no audible wheezes, no stridor Extremities: no clubbing, no lucio a General Appearance: Well appearing and i n no acute distress Skin Lips and nail beds p ink Neurologic Exam: non-focal exam Musculoskeletal Normal gait and stat ion Consultation Request Notes Referral Date Referring Provider Referred Provider Not es 06/15/2024 Austin Rios [facility], Rheumatology Joint pains, episodic
--- OUTSIDE RECORDS SUMMARY | 2024-06-22 08:53 | XMS_ITS ---
Author Organization [facility] madeleine Address [address] [place] [address] Care Team Providers Care Supervisor Production Department Name Role Phone Esme Claudio Primary Care Provider Austin Rios [phone] REASON FOR VISIT call [facility] again ([facility]) Encounters Encounter Location Date Provider Diagnosis [place] [address] [place] [address] 05/21/2024 Austin Rios Plan Of Treatment Next Appt Details Provider Name:Tyler Lorrie Elizaldeannika jess, 06/25/2024 10:30:00 AM, [address] [place], [address], Provider Name:Austin Rios, 0 09/21/2024 09:15:00 AM, [address] [place], [address], Provider Name:Austin Rios, 0 04/22/2025 09:00:00 AM, [address] [place] [address], [address], Progress Notes * MOYKALEE HERNANDEZHOLLEYDOB:1960 (63 yo F)Acc No.[id number]:05/21/2024 Patient:?RAND SAMANIEGO :1960???Age:63 Y???Sex:Female Address:[place] [address] * true * Date:? Generated for Printi ng/Faxing/eTransmitting on:?06/22/2024 08:53 AM EDT
--- OUTSIDE RECORDS SUMMARY | 2024-06-22 08:53 | XMS_ITS | Patient Health Record ---
Author Organization [facility] madeleine Address [address] [place] [address] Care Team Providers Care Tester Equipment Name Role Phone Esme Claudio Primary Care Provider Austin Rios Unavailable [phone] Lizzeth Paul Unavailable [phone] Roseann Mulligan Unavailable [phone] Panfilo Pickett Unavailable [phone] Ness Robbins Unavailable [employer], Provider Unavailable Unavailab Marya Koroma Unavailable [phone] Tyler Bryant Unavailable [phone] Allergies Allergen (clinical drug ingredient) Drug/Non Drug [...] 08:29:15 AM Interpretation: Performing Lab:NL2, [facility] [id number] [place] Notes/Report: Received Date: NON-FASTING FASTING:UNKNOWN FASTING: UNKNOWN STREPTOCOCCUS, GROUP A CULTURE SEE NOTE STREPTOCOCCUS, GROUP A CULTURE Micro Number: [id number] Test Status: Final Specimen Source: Throat Specimen Quality: Adequate Result: No group A Streptococcus isolated rapid Flu Reviewed date:01/16/2024 03:15:25 PM Interpretation:Negative Performing Lab: Notes/Report: Negative Influenza A neg Influenza B neg COVID-19, RSV, FLU A/B PCR ( [id number] [facility]) Reviewed date:01/21/2024 08:28:55 AM Interpretation: Performing Lab:NL2, [facility] [id number] [facility] Services[facility] [place] Notes/Report: Received Date: [id number] FASTING FASTING:UNKNOWN FASTING: UNKNOWN INFLUENZA A RNA [...] diagnosis and patient management decisions. Methodology: Reverse site manager polymerase chain reaction (RT-PCR). Rapid Strep Reviewed date:06/06/2024 04:59:10 PM Interpretation:Negative Performing Lab: Notes/Report: Negative RAPID STREP negative CT Heart W/O Dye Heber Eval Reviewed date:02/03/2024 05:54:19 PM Interpretation: Performing Lab: Notes/Report: CT Heart W/O Dye Heber Eval INDICATION: Reason: E78.5 HYPERLIPIDEMIA; Clinical Question(s): Other:. Female of age 63 years, race White COMPARISON: None TECHNIQUE: Coronary artery Calcium Scoring. After a localizing material expediter image was obtained, an ECG-gated noncontrast exam was obtained of the heart in late diastole. The region of interest was limited to the heart in order to optimize image quality. Weight-based protocol using automatic tube modulation was used to optimize exposure parameters. A Trumpet Search 64 scanner was used, with Agatston scoring performed using Fleck - The Bigger Picture (Feedback-Machine) web-based software. This procedure is not being [...] Agatston coronary calcium score is 0. WSN: [id number] Ordering Physician: Ness Winkler Dictated By: Malia Ruelas MD CT Heart W/O Dye Sherwin n Eval INDICATION: Reason: E78.5 HYPERLIPIDEMIA; Clinical Question(s): Other:. Female of age 63 years, rac e White COMPARISON: None TECHNIQUE: Coronary artery Calcium Scoring. After a localizing material expediter image was obtained, an ECG-gat ed noncontrast exam was obtained of the heart in late diastole. The region of interest was limited to the heart in order to optimize image quality. Weight-based protocol using automatic tube modulation was used to optimize exposure parameters. A Trumpet Search 64 scanner was used, with Agatston scoring performed using Fleck - The Bigger Picture (Feedback-Machine) web-based software. This procedure is not krzysztof [...] coronar y calcium score is 0. WSN: [id number] Ordering Physician: Ness Winkler Reason For Referral Reason for CPAP adjustments ; pt with known JACKY without proper supplies Diagnosis 1 JACKY (G47.33) Referral Organization [facility] Pr actice Referring Provider First Name Roseann Referring Provider Last Name Ese Referring Provider [facility] ctice Referred Provider Sleep Medicine [facility] Referred Provider Specialty SLEEP MEDICI NE General Notes Marya Catherine 06/2023 01:56:41 PM > Referral faxed to: [phone] Clinical [facility] UP[facility]: NPI- Dr Anthony Velasquez, Provider , Address1: [address], Address2: Grp , [facility], Zip: [place], [address], , Referral Priority Routine Reason Needs Nephrology Con sult, 2nd HTN workup Diagnosis 1 HTN (I10) Referral Organization [facility] actice Referring Provider First Name Roseann Referring Provider Last Name Ese [facility] Referred Provider [facility], [facility] Referred Provider Specialty Nephrology General Notes Marya Catherine 07/2023 07:21:55 AM > referral faxed to: [phone] Clinical Notes Provider Name: [facility], [facility], Address1: [address], [facility], Zip: [place], [address], , Referral Priority Routine Reason JACKY Diagnosis 1 JACKY (G47.33) Referral Organization [facility] Referring Provider First Name Austin Referring Provider Last Name Gabriel Referring Provider [facility] ctice [facility] General Notes Marya Catherine 03/12 01:09:47 PM > Referral faxed to: [phone] Clinical Notes Provider Name: [facility], SLEEP LAB, Provider ID Number: , Provider UPIN: , Provider NPI: , Provider Facility: , Provider Speciality: , Address1: [address] [place] [address], Address2: , [facility], Zip: [place], [address], , Appt. Date/Time: , Referral Priority Routine Reason Joint pains, episodi c Diagnosis 1 Joint pains (M25.50) Referral Organization [facility] Referring Provider First Name Austin Referring Provider Last Name Gabriel Referring Provider [facility] ctice Referred Provider [facility] er, Rheumatology Referred Provider Specialty Rheumatology General Notes Austin Rios 025 01:54:55 PM >fax MGB ID note with referral, Marya Catherine 06/18/2024 12:12:46 PM > Referral faxed to: [phone] Clinical Notes Provider Name: [facility], Rheumatology, Provider ID Number: , Provider UPIN: , Provider NPI: , Provider Facility: , Provider Speciality: Rheumatology, Address1: [address] [place] [address] , Address2: [address], City, [facility], Zip: [place], [address], , Appt. Date/Time: , Referral Priority Routine Medications Medication SIG (Take, Route, Frequency, Duration) Notes Start Date End Date Status Albuterol Sulfate HFA 108 (90 Base) MCG/ACT 2 puff(s) inhaled 4 times a day prn for 90 days prn 08/19/2017 Active LORazepam 1 MG 1 tab(s) orally 1 times a day prn anxiety - sparing use for 30 days PRN 05/06/2024 Active hydroCHLOROthiazide 25 MG 1 tablet in morning Orally Once a day for 90 days 01/08/2024 Active PROzac 40 MG 1 cap(s) orally once a day for 90 days Active Ondansetron 4 MG 1 tab(s) orally every 8 hours for 30 days Active Fish Oil 2 capsules Orally once daily for 30 days Active Phenergan 12.5 MG 1 suppository as needed Rectal every 6 hrs for 30 days 05/05/2024 Active Qvar RediHaler 80 MCG/ACT 1 puff(s) inha led 2 times a day for 90 days 06/11/2018 Active Promethazine HCl 25 MG 1 suppository as needed Rectal every 6 hrs for 30 days As needed (Max 50mg per day) Max 50mg per day 05/01/2024 Active Cozaar 100 MG 1 tab(s) orally once a day for 90 days Active Nystatin 369747 UNIT/GM 1 application Externally Twice a day for 14 days As needed 09/11/2023 Active Adderall XR 30 MG 1 capsule in the morning Orally Once a day for 30 days 06/15/2024 Active Vitamin B Complex 1 PO QD Ac tive Levothyroxine Sodium 100 MCG 1 tab(s) orally once a day for 90 days Active Mupirocin 2 % 1 micah applied topically 3 times a day for 10 day(s) PRN 03/01/2023 Active Naproxen 250 MG 1 tablet with food or milk as needed Orally every 12 hrs for 30 days As needed 03/30/2024 Active amLODIPine Besylate 10 MG 1 tablet Orall y Once a day for 90 days 12/05/2023 Active Famotidine 20 MG 2 tablets Orally Once a day Active Cyclobenzaprine HCl 10 MG 1 tab(s) orall y 3 times a day for 10 days PRN Active Penicillin V Potassium 500 MG 1 tablet Orally Twice a day for 10 days 06/05/2024 Active Flonase Allergy Relief 50 MCG/ACT 1 spray in each nostril Nasally Twice a day for 30 days 02/05/2024 Active Immunizations Vaccine Route Administration Date Status [...] d FLUBLOK PURCHASED IM Intramuscular 12/05/2023 Administered PREVNAR 20 PURCHASED IM Intramuscular 03/30/2024 Administered COVID VACC 19+ PFIZER PURCHASED IM Intramuscular 03/30/2024 Administered Problems Problem Type SNOMED Code ICD Code Onset Dates Problem Status W/U Status Risk Notes Problem Anxiety (finding) (55286953) Anxiety (unspecified) (F41.9) Active confirmed Problem Dysphagia (29147497) Dysphagia (R13.10) Active confirmed Problem Hyperlipidemia (23802381) Hyperlipidemia, unspecified (E78.5) Active confirmed Problem Neck pain (76733159) Pain Neck (M54.2) Active confirmed Problem Reactions to severe stress, other (F43.8) Active confirmed Problem Obstructive sleep apnea syndrome (95670437) JACKY (G47.33) Active confirmed Problem Allergic rhinitis (69668155) Allergic rhinitis, Other (J30.89) Active confirmed Problem Mild intermittent asthma (591112170) Asthma Mild intermittent, uncomplicated (J45.20) Active confirmed Problem Impaired fasting glucose (420489387) Impaired fasting glucose (R73.01) Active confirmed Problem C-reactive protein abnormal (463839057) Elevated C-reactive protein (CRP) (R79.82) Active confirmed Problem Attention deficit hyperactivity disorder (651762717) ADHD, unspecified type (F90.9) Active confirmed Problem Vitamin D deficiency (08885508) Vitamin D deficiency, unspecified (E55.9) Active confirmed Problem Fatigue (82085336) Fatigue (R53.83) Active conf irmed Problem Hypertension (12129609) HTN (I10) Active confirmed Problem Hypothyroidism (79971930) Hypothyroidism, unspecified (E03.9) Active confirmed Problem Hot flashes (609352449) HOT FLASHES (N95.8) Active confirmed Problem Muscle pain (77944840) Myalgia, unspecified site (M79.10) Active confirmed Problem Cyclical vomiting syndrome (disorder) (60813304) Cyclical vomiting syndrome unrelated to migraine (R11.15) Active confirmed Vital Signs Temperature 97.2 degrees Fahrenheit 06/15/2024 Oximetry 99 06/15/2024 Blood pressure diastolic 70 mm Hg 06/15/2024 Height 59.75 in 03/30/2024 Blood pressure systolic 142 mm Hg 06/15/2024 Weight 186 lbs 06/15/2024 BMI 36.63 kg/m2 03/30/2024 Encounters Encounter Location Date Provider Diagnosis [facility] [address] [place] [address] 09/24/2023 Esme Claudio Pain back M54.89 ; Pain Neck M54.2 and Pain hand, unspecified hand M79.643 [facility] [address] [place] [address] 02/13/2024 [employer] Pain Neck M54.2 ; Pain wrist, left M25.532 ; Pain wrist, right M25.531 ; Pain hip, left M25.552 ; Pain hip, right M25.551 ; Pain foot, left M79.672 and Pain foot, right M79.671 [facility] [address] [place] [address] 02/20/2024 Haiying Manny No Show or Late Cancel NS.LTCX [facility] [address] [place] [address] 05/13/2024 Haiying Manny Pain Neck M54.2 ; Pain wrist, left M25.532 and Pain wrist, right M25.531 [facility] [address] [place] [address] 05/21/2024 Haiying Manny Pain Neck M54.2 ; Pain wrist, left M25.532 and Pain wrist, right M25.531 [facility] [address] [place] [address] 05/21/2024 Austin Rios Nausea and/or vomiting R11.2 and Hypokalemia E87.6 [facility] [address] [place] [address] 06/15/2024 Austin Rios Nausea and/or vomiting R11.2 ; HTN I10 ; Joint pains M25.50 and ADHD, unspecified type F90.9 [facility] [address] [place] [address] 07/05/2023 Esme Claudio Pain hand, left M79.642 ; Pain hand, right M79.641 ; Pain Neck M54.2 and Pain back M54.89 [facility] [address] [place] [address] 07/19/2023 Ness Robbins Asthma Mild intermittent, uncomplicated J45.20 ; Fatigue R53.83 ; HTN I10 ; Hypothyroidism, unspecified E03.9 ; ADHD, unspecified type F90.9 and Myalgia, unspecified site M79.10 [facility] [address] [place] [address] 08/02/2023 Esme Claudio Pain hand, left M79.642 ; Pain hand, right M79.641 ; Pain Neck M54.2 and Pain back M54.89 [facility] [address] [place] [address] 08/15/2023 Esmeasutin Claudio Pain hand, left M79.642 ; Pain hand, right M79.641 ; Pain Neck M54.2 and Pain back M54.89 [facility] [address] [place] [address] 09/01/2023 Provider [employer] ADHD, unspecified type F90.9 [facility] [address] [place] [address] 09/11/2023 Panfilo NORBERTSeverin Rash and other nonspecific skin eruption R21 and ADHD, unspecified type F90.9 [facility] [address] [place] [address] 10/25/2023 Esme Claudio Pain hand, left M79.642 ; Pain hand, right M79.641 ; Pain Neck M54.2 and Pain back M54.89 [facility] [address] [place] [address] 12/05/2023 Ness Robbins HTN I10 ; Chest pain unspecified R07.9 ; Hyperlipidemia, unspecified E78.5 ; Hypothyroidism, unspecified E03.9 ; Asthma Mild intermittent, uncomplicated J45.20 and Encounter for immunization Z23 [facility] [address] [place] [address] 12/19/2023 Tyler Bryant Pain Neck M54.2 ; Pain wrist, left M25.532 ; Pain wrist, right M25.531 ; Pain hip, left M25.552 and Pain hip, right M25.551 [facility] [address] [place] [address] 12/26/2023 [employer] Pain Neck M54.2 ; Pain wrist, left M25.532 ; Pain wrist, right M25.531 ; Pain hip, left M25.552 and Pain hip, right M25.551 [facility] [address] [place] [address] 01/01/2024 Marya Paris HTN I10 and ADHD, unspecified type F90.9 [facility] [address] [place] [address] 01/03/2024 Esme Claudio Pain hand, left M79.642 ; Pain hand, right M79.641 ; Pain Neck M54.2 and Pain back M54.89 [facility] [address] [place] [address] 01/08/2024 Ness Robbins Hyperlipidemia, unspecified E78.5 ; Dyspnea, unspecified R06.00 ; Elevated C-reactive protein (CRP) R79.82 ; HTN I10 ; Asthma Mild intermittent, uncomplicated J45.20 ; ADHD, unspecified type F90.9 and Prediabetes R73.03 [facility] [address] [place] [address] 01/08/2024 Haiying Manny Pain Neck M54.2 ; Pain wrist, left M25.532 ; Pain wrist, right M25.531 ; Pain hip, left M25.552 and Pain hip, right M25.551 [facility] [address] [place] [address] 01/13/2024 Ness Robbins JACKY G47.[address] [address] 01/16/2024 Austin Rios Cough, unspecified R05.9 ; Asthma exacerbation, unspecified type J45.901 and Sore throat J02.[address] [facility] [address] [place] [address] 01/22/2024 Austin Rios Asthma exacerbation, unspecified type J45.901 and Cough, unspecified R05.9 [facility] [address] [place] [address] 02/05/2024 Ness Robbins Hyperlipidemia, unspecified E78.5 ; HTN I10 ; Hypothyroidism, unspecified E03.9 ; Allergic rhinitis, Other J30.89 ; Anxiety (unspecified) F41.9 ; Myalgia, unspecified site M79.10 ; Elevated C-reactive protein (CRP) R79.82 and Prediabetes R73.03 [facility] [address] [place] [address] 03/13/2024 Esme Claudio Pain arm, left upper M79.622 and Pain arm, right upper M79.621 [facility] [address] [place] [address] 03/30/2024 Austin Gabriel Adult physical MADDY L Z00.00 ; Vitamin D deficiency, unspecified E55.9 ; Hypothyroidism E03.9 ; HTN I10 ; Encounter for immunization Z23 ; Back pain, other M54.89 ; JACKY G47.33 ; Hyperlipidemia, unspecified E78.5 and Hypokalemia E87.6 [facility] [address] [place] [address] 04/13/2024 Marya Paris Fever, unspecified R50.9 ; Pain abd Generalized R10.84 ; Nausea R11.0 ; Vomiting, unspecified R11.10 and Constipation, unspecified K59.00 [facility] [address] [address] [place] [address] 05/05/2024 Lizzeth Paul HTN I10 ; Nausea and/or vomiting R11.2 ; Cyclical vomiting syndrome unrelated to migraine R11.15 ; Impaired fasting glucose R73.01 ; Fatigue R53.83 ; Elevated C-reactive protein (CRP) R79.82 and Hyperlipidemia, unspecified E78.5 [facility] [address] [place] [address] 06/05/2024 Esme Claudio Sore throat J02.9 an d Ned ker inflamed L82.0 [facility] [address] [place] [address] 08/12/2023 Esme Claudio [facility] [address] [place] [address] 08/15/2023 Roseann Mulligan ADHD, unspecified type F90.9 [facility] [address] [place] [address] 11/04/2023 Austin Rios [facility] [address] [place] [address] 11/21/2023 Roseann Mulligan ADHD, unspecified type F90.9 [facility] [address] [place] [address] 12/05/2023 Ness Robbins [facility] [address] [place] [address] 12/05/2023 Carene NORBERTPettinger Hyperlipidemia unspecified E78.5 and Chest pain unspecified R07.9 [facility] [address] [place] [address] 12/05/2023 Roseann Mulligan HTN I10 [facility] [address] [place] [address] 12/12/2023 Ness Robbins HTN I10 [facility] [address] [place] [address] 12/18/2023 Roseann Mulligan HTN I10 and Fatigue R53.83 [facility] [address] [place] [address] 12/23/2023 Roseann Mulligan [facility] [address] [place] [address] 01/01/2024 Marya Paris [facility] [address] [place] [address] 01/08/2024 Ness Robbins [facility] [address] [place] [address] 01/08/2024 Ness Robbins [facility] [address] [place] [address] 01/08/2024 Ness Robbins [facility] [address] [place] [address] 01/09/2024 Ness Robbins ADHD, unspecified type F90.9 [facility] [address] [place] [address] 01/13/2024 Ness Robbins [facility] [address] [place] [address] 01/16/2024 Austin Rios [facility] [address] [place] [address] 02/21/2024 Austin Rios Myalgia, unspecified site M79.10 [facility] [address] [place] [address] 02/28/2024 Esme [facility] [address] [place] [address] 03/30/2024 Esme Claudio [facility] [address] [place] [address] 05/05/2024 Lizzeth Paul Anxiety (unspecified ) F41.9 [facility] [address] [place] [address] 05/10/2024 Esme Claudio [facility] [address] [place] [address] 05/10/2024 Austin Rios [facility] [address] [place] [address] 05/21/2024 Austin Rios [facility] [address] [place] [address] 11/21/2023 Roseann Mulligan [facility] [address] [place] [address] 11/26/2023 Roseann Mulligan ADHD, unspecified type F90.9 [facility] [address] [place] [address] 12/05/2023 Roseann Mulligan Fatigue R53.83 and Asthma Mild intermittent, uncomplicated J45.20 [facility] [address] [place] [address] 12/20/2023 Ness Robbins [facility] [address] [place] [address] 12/20/2023 Ness Robbins [facility] [address] [place] [address] 12/20/2023 Ness Robbins HTN I10 [facility] [address] [place] [address] 02/12/2024 Austin Rios Hypothyroidism, unspecified E03.9 ; HTN I10 ; Anxiety (unspecified) F41.9 ; Myalgia, unspecified site M79.10 and Allergic rhinitis, Other J30.89 [facility] [address] [place] [address] 02/25/2024 Austin Rios [facility] [address] [place] [address] 04/14/2024 Marya Paris Nausea R11.0 [facility] [address] [place] [address] 05/18/2024 Austin Rios [facility] [address] [place] [address] 05/18/2024 Esme Claudio [facility] [address] [place] [address] 05/19/2024 Lizzeth Paul Assessments Encounter Date Diagnosis (ICD Code) Assessment Notes Treatment Notes Treatment Clinical Notes Section Notes 09/24/2023 Pain back (ICD-10 - M54.89) Tension bilateral QL, thoracolumbar paraspinals, traps and rhomboids. 09/24/2023 Pain Neck (ICD-10 - M54.2) Hypertonic R upper trap, Tension L>R anterior scalenes, lev scap, SCM 02/13/2024 Pain Neck (ICD-10 - M54.2) see pain wrist TCM Pattern: 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 TCM treatment principles: scatter the cold, disperse wind and dampness in the body. tonify Qi, move Blood and Qi 02/13/2024 Pain wrist, left (ICD-10 - M25.532) Treatment/Needle Set 1:Points: Bi LV3, KD3, HT6, HT1, KD22 CV15, 16, 12 [place] checking pulse while needling LV3, KD3, HT1,CV15 and manipulating the needles until the pulse calm down35 minutes face to face with patient for set 1 Treatment/Needle Set 2:Points: Bi ST28, LI4, LV14,GB26, SP21 CV3,4, 6,9,23, YIN MEDEROS 16 needles 10 minutes face to face with patient for set 2 [place] were retained for 45 minutes _# of needles inserted:28_# of needles withdrawn: 28 Adjunct techniques used: 1. infrared therapy:1) [employer] Soft Mesh Far Infrared Heating Pad with Tatiana & Tourmaline Gemstones on the tableCupping/Slidi ng cupping on: none Manual Tui Na on: NONE Gua Sha on: none Patient tolerated the procedure well. 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 TCM treatment principles: scatter the cold, disperse wind and dampness in the body. tonify Qi, move Blood and Qi 02/20/2024 No Show or Late Cancel (ICD-10 - NS.LTCX) 05/13/2024 Pain Neck (ICD-10 - M54.2) see pain wrist TCM Pattern: 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 TCM treatment principles: scatter the cold, disperse wind and dampness in the body. tonify Qi, move Blood and Qi 05/13/2024 Pain wrist, left (ICD-10 - M25.532) Treatment/Needle Set 1:Points: Bi SP4, KD3, ST36,40, GB34, BL39, SP9 14 [place] 20 minutes face to face with patient for set 1 Treatment/Needle Set 2:Points: Bi ba lanny, LI5, TW5, LI11 14 needles 15 minutes face to face with patient for set 2 [place] were retained for 45 minutes _# of needles inserted:28_# of needles withdrawn: 28 Adjunct techniques used: 1. infrared therapy:1) [employer]Line Soft Mesh Far Infrared Heating Pad with Tatiana & Tourmaline Gemstones on the tableCupping/Slidi ng cupping on: none Manual Tui Na on: NONE Gua Sha on: Back: from BL21 to BL 18 for dispersing Patient tolerated the procedure well. 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 TCM treatment principles: scatter the cold, disperse wind and dampness in the body. tonify Qi, move Blood and Qi 05/21/2024 Pain Neck (ICD-10 - M54.2) see pain wrist TCM Pattern: 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 TCM treatment principles: scatter the cold, disperse wind and dampness in the body. tonify Qi, move Blood and Qi 05/21/2024 Nausea and/or vomiting (ICD-10 - R11.2) Ongoing , episodic issue. Very disruptive to her daily life and ability to work. Reports prior work ups including GI and infectious disease consults. Also had rheumatology referral but they wouldnt see her based on symptoms. Has lab orders from [facility] at prior visit for ROSS and rhuem related assessment. Still no GI records, re-requested these as just starting to work with patient after PCP left and will review work up this far. Awaiting GI consult in July thru [facility] now. No current symptoms Completed intermittent FMLA ppw today 05/21/2024 Hypokalemia (ICD-10 - E87.6) Notes prone to low potassium when she gets her GI epsidoes and sweating, continue to monitor, see above. Has close follow up scheduled. Call back sooner as needed and return to ED if severe symptoms 06/15/2024 Nausea and/or vomiting (ICD-10 - R11.2) [...] by prior GI note. Patient will see [facility] next month for consult and will [...] nephrology appt next week. Follow up closely. 07/05/2023 Pain hand, left (ICD-10 - M79.642) [...] red flag s/sx. FU 1 mo/sooner prn 12/19/2023 Pain Neck (ICD-10 - M54.2) see pain wrist TCM Pattern: 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 TCM treatment principles: scatter the cold, disperse wind and dampness in the body. tonify Qi, move Blood and Qi 12/19/2023 Pain wrist, left (ICD-10 - M25.532) Treatment/Needle Set 1:Points: 2 groups EA: DI75-DX7 Bi KD3, SP6, 8 10 [id number] minutes face to face with patient for [...] [employer]mal[employer] Gemstones on the table2) [employer] 275 Near Infrared Lamp on lower legs Cupping/Sliding cupping on: none Manual Tui Na on: left side forearm and wrist Gua Sha on: none Patient tolerated the procedure well. Comments and response to care: Test patient hands grabbing strength after session: more strength w/ less pain in bi thumb joints TCM Pattern: 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 TCM treatment principles: scatter the cold, disperse wind and dampness in the body. tonify Qi, move Blood and Qi 12/26/2023 Pain Neck (ICD-10 - M54.2) see pain wrist TCM Pattern: 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 TCM treatment principles: scatter the cold, disperse wind and dampness in the body. tonify Qi, move Blood and Qi 01/01/2024 HTN (ICD-10 - I10) will increase [...] attack (myocardial infarction), stroke, and kidney failure. https://www.heart. org/en/health-topi cs/zshg-tlwrj-olnk sure/health-threat p-qypl-rcjl-blood- pressure https://www.[facility].org/diseases- conditions/high-bl ood-pressure/in-de pth/shut-mnyvw-ull ssure/art-... Eat plenty of fruits, vegetables, whole grains, fish, and low-fat dairy. Studies show high blood pressure can be lowered and prevented with the DASH diet. This diet is low in sodium and high in potassium, magnesium, calcium, protein, and fiber. https://www.[facility].org/healthy-l ifestyle/nutrition -szp-msjpfpc-pgjek g/in-depth/dash-di et/art-200... https://www.[facility].org/healthy-l ifestyle/nutrition -han-urophju-occpc g/in-depth/dash-di et/art-200... Low blood pressure, also known as hypotension, [...] = 6.1% LDL 160 Per the 2013 [place] [employer] [employer] (ACC/AHA) guideline on the management of blood cholesterol, treatment with dasutwwt-wr-xace intensity statin therapy is recommended for individuals with an estimated 10-year CVD risk > or = to 7.5 percent. Per the 2013 [place] [employer] [employer] (ACC/AHA) guideline on the treatment [...] 1 mo. ED PRN red flag s/sx. 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 TCM treatment principles: scatter the cold, disperse wind and dampness in the body. tonify Qi, move Blood and Qi 01/13/2024 JACKY (ICD-10 - G47.33) JACKY presents an additional risk factor for CV disease. We discussed need for her to get fully operating machine--will send ref for her to see [facility] sleep med to be adjusted etc. JACKY's [...] artery disease, heart failure and cardiac arrhythmias. 01/16/2024 Cough, unspecified (ICD-10 - R05.9) see [...] R05.9) see above, significant improvement with treatment 02/05/2024 Hyperlipidemia, unspecified (ICD-10 - E78.5) Nuclear stress test scheduled on 04/06/2024, she is on cancellation list as well CAC 0. 10-year risk of ASCVD = 6.1% LDL 160 She decided to hold off on STATIN and proceed w further investigation Focus on mindful diet/ Many foods and spices have antinflammatory effects including tumeric, cinnamon, berries, leafy greens, flax seeds. Nutritionfacts.org is an excellent resource for information about dietary modifications to reduce inflammation and enhance athletic performance. Engage in at least 150 to 300 minutes weekly (spaced throughout the week) of moderate-intensity aerobic exercise and at least 2 days weekly of muscle-strengtheni ng exercises. FU in 2 mo or sooner PRN. ED PRN red flag s/sx. 03/13/2024 Pain arm, left upper (ICD-10 - M79.622) 1. infrared therapy: 1) [employer] Soft Mesh Far Infrared Heating Pad with [employer]mal[employer] Gemstones on the table 2. Cupping Therapy: Cupping on upper arms 3.work on whole body, focus on bi upper arms and shouldersPatient demonstrates relaxed body in today's session. Gentle self-care taught as a way to maintain benefits of today's treatment, and patient is verbalizing a good understanding of the plan. Patient will seek medical assessment for new symptoms of concern, including any new numbness/tingling or new weakness. 03/13/2024 Pain arm, right upper (ICD-10 - M79.621) 03/30/2024 Adult physical NORMAL (ICD-10 - Z00.00) see below 03/30/2024 Vitamin D deficiency, unspecified (ICD-10 - E55.9) 04/13/2024 Fever, unspecified (ICD-10 - R50.9) -advised to use Tylenol 1g every eight hours scheduled for the fever and discomfort 04/13/2024 Pain abd Generalized (ICD-10 - R10.84) -If worsens at all, Go to the emergency room. -Lab and Xray order sent to [facility] and pt's email- ML 05/05/2024 HTN (ICD-10 - I10) 05/05/2024 Nausea and/or vomiting (ICD-10 - R11.2) 06/05/2024 Sore throat (ICD-10 - J02.9) tnder AC LN andsore throat Patient instructed on indications for use of new medications, proper administration, and potential side effects. 06/05/2024 Ned ker inflamed (ICD-10 - L82.0) cryo x 3 w instructions 08/15/2023 ADHD, unspecified type (ICD-10 - F90.9) 11/21/2023 ADHD, unspecified type (ICD-10 - F90.9) 12/05/2023 Hyperlipidemia unspecified (ICD-10 - E78.5) 12/05/2023 Chest pain unspecified (ICD-10 - R07.9) 12/05/2023 HTN (ICD-10 - I10) 12/12/2023 HTN (ICD-10 - I10) 12/18/2023 HTN (ICD-10 - I10) 01/09/2024 ADHD, unspecified type (ICD-10 - F90.9) 02/21/2024 Myalgia, unspecified site (ICD-10 - M79.10) 05/05/2024 Anxiety (unspecified) (ICD-10 - F41.9) 11/26/2023 ADHD, unspecified type (ICD-10 - F90.9) 12/05/2023 Fatigue (ICD-10 - R53.83) 12/20/2023 HTN (ICD-10 - I10) 02/12/2024 Hypothyroidism, unspecified (ICD-10 - E03.9) 04/14/2024 Nausea (ICD-10 - R11.0) 09/24/2023 Pain hand, unspecified hand (ICD-10 - M79.643) Tension bilateral flexors and extensors of the wrist, hypertonic muscles in bilat thenar eminance 02/13/2024 Pain wrist, right (ICD-10 - M25.531) see pain wrist TCM Pattern: 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 TCM treatment principles: scatter the cold, disperse wind and dampness in the body. 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 TCM treatment principles: scatter the cold, disperse wind and dampness in the body. tonify Qi, move Blood and Qi 05/21/2024 Pain wrist, left (ICD-10 - M25.532) Treatment/Needle Set 1:Points: Bi SP4, ST36, PC6, ST21, CV12,11 10 [place] 20 minutes face to face with patient for set 1 Treatment/Needle Set 2:Points: Bi ba lanny, LI5, ST44, CV6 13 needles 15 minutes face to face with patient for set 2 [place] were retained for 45 minutes _# of needles inserted:23_# of needles withdrawn: 23 Adjunct techniques used: 1. infrared therapy:1) [employer] Soft Mesh Far Infrared Heating Pad with [employer] Gemstones on the tableCupping/Slidi ng cupping on: none Manual Tui Na on: NONE Gua Sha on: Back along the BL channels, chestPatient tolerated the procedure well. 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 TCM treatment principles: scatter the cold, disperse wind and dampness in the body. tonify Qi, move Blood and Qi 06/15/2024 Joint pains (ICD-10 - M25.50) Gets chills, joint pains, nausea, vomiting, episodically as discussed above. Referral to foil cutter made as discussed 07/05/2023 Pain Neck (ICD-10 - M54.2) see pain hand left notes 07/19/2023 HTN (ICD-10 - I10) BP in good range at home, continue to cek BP at home and instructed to call [...] to follow up and will send refills stitch rubber last filled: 08/15/2023 Dextroamp-Amphe t Er 30 Mg Cap 30/10/25/2023 Pain hand, right (ICD-10 - M79.641) see pain hand left notes 12/05/2023 Hyperlipidemia, unspecified (ICD-10 - E78.5) CAC as above and lipid panel. -discussed CHL but will hold off and first do above. 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 TCM treatment principles: scatter the cold, disperse wind and dampness in the body. 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 TCM treatment principles: scatter the cold, disperse wind and dampness in the body. tonify Qi, move Blood and Qi 01/03/2024 Pain hand, right (ICD-10 - M79.641) see pain hand left notes 01/08/2024 Elevated C-reactive protein (CRP) (ICD-10 - R79.82) elevated HSCRP x2 : 12/05 19.5; 12/18 14.1 01/08/2024 Pain wrist, left (ICD-10 - M25.532) Treatment/Needle Set 1:Points: Bi LV2, ST44, GB43 6 Bpzwbrx46 minutes face to face with patient for [...] L SP6, R KD3, CV4, 12 8 [place] 15 min face to face with patient for set 3 [place] were retained for 45 minutes _# of needles inserted:42_# of needles withdrawn: 42 Adjunct techniques used: 1. infrared therapy:1) [employer] Soft Mesh Far Infrared Heating Pad with [employer]mal[employer] Gemstones on the table2) [employer] 275 Near Infrared Lamp on lower legs Cupping/Sliding cupping on: none Manual Tui Na on: left wrist and palm Gua Sha on: none Patient tolerated the procedure well. 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 TCM treatment principles: scatter the cold, disperse wind and dampness in the body. tonify Qi, move Blood and Qi 01/16/2024 Sore throat (ICD-10 - J02.9) pharynx clear, rapid strep neg. suspect secondary to the frequent cough 02/05/2024 HTN (ICD-10 - I10) ? secondary HTN--waiting for nephrology will do a renal US and workup with Dr. Castro on 02/27/2024 03/30/2024 Hypothyroidism (ICD-10 - E03.9) refill sent, will update labs 04/13/2024 Nausea (ICD-10 - R11.0) -given a shot of 25 milligram Promethazine Today, has Promethazine suppositories and Zofran at home -She was advised to increase her fluid intake, small sips and take smaller bites while eating. 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 TCM treatment principles: scatter the cold, disperse wind and dampness in the body. 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 TCM treatment principles: scatter the cold, disperse wind and dampness in the body. tonify Qi, move Blood and Qi 06/15/2024 ADHD, unspecified type (ICD-10 - F90.9) Having hard time functioning at home and work since stopping the adderall. Would like to restart. 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 TCM treatment principles: scatter the cold, disperse wind and dampness in the body. 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 TCM treatment principles: scatter the cold, disperse wind and dampness in the body. tonify Qi, move Blood and Qi 01/03/2024 Pain Neck (ICD-10 - M54.2) see pain hand left notes 01/08/2024 HTN (ICD-10 - I10) Amlodipine increased to 10mg on 12/31 and losartan 100 mg but BP still high to date. Discussed add on HCTZ for triple therapy. Ref to nephrology? Will first dw team. See TE. 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 TCM treatment principles: scatter the cold, disperse wind and dampness in the body. tonify Qi, move Blood and Qi 02/05/2024 Hypothyroidism, unspecified (ICD-10 - E03.9) Pt wants a refill of her meds. Rx sent to pharmacy 03/30/2024 HTN (ICD-10 - I10) BP in range today. Has continued work up pending thru Dr Castro to assess renal artery US. I advised the untreated JACKY can also be making HTN harder to treat. Will monitor closely. 04/13/2024 Vomiting, unspecified (ICD-10 - R11.10) -Nausea, vomiting, and cramping could be related to constipation. She disagrees with this but is willing to try Miralax, 17 grams in 8 oz of water daily. She can sip it slowly throughout the day to get it in. 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 TCM treatment principles: scatter the cold, disperse wind and dampness in the body. 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 TCM treatment principles: scatter the cold, disperse wind and dampness in the body. 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 TCM treatment principles: scatter the cold, disperse wind and dampness in the body. tonify Qi, move Blood and Qi 01/03/2024 Pain back (ICD-10 - M54.89) see pain hand left notes 01/08/2024 Asthma Mild intermittent, uncomplicated (ICD-10 - J45.20) Does not seem related, due to normal pulm exam/although recent covid is a factor. 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 TCM treatment principles: scatter the cold, disperse wind and dampness in the body. 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 TCM treatment principles: scatter the cold, disperse wind and dampness in the body. 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 TCM treatment principles: scatter the cold, disperse wind and dampness in the body. tonify Qi, move Blood and Qi 01/08/2024 ADHD, unspecified type (ICD-10 - F90.9) Discussed w YOUSIF at prev visit -- RX resent. 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 TCM treatment principles: scatter the cold, disperse wind and dampness in the body. 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 TCM treatment principles: scatter the cold, disperse wind and dampness in the body. tonify Qi, move Blood and Qi 01/08/2024 Prediabetes (ICD-10 - R73.03) A1C 5.8% 03/30/2024 JACKY (ICD-10 - G47.33) Referral to [facility] sleep medicine made as discussed. We reviewed the impact untreated JACKY can have on metabolism, mood, HTN, Cardiovascular system, etc 05/05/2024 Hyperlipidemia, unspecified (ICD-10 - E78.5) 02/05/2024 Elevated C-reactive protein (CRP) (ICD-10 - R79.82) elevated HSCRP x2 : 12/05 19.5; 12/18 14.1 03/30/2024 Hyperlipidemia, unspecified (ICD-10 - E78.5) Update labs, follow up to review results 02/05/2024 Prediabetes (ICD-10 - R73.03) A1C 5.8% Lifestyle rec as above 03/30/2024 Hypokalemia (ICD-10 - E87.6) States she has been followed by renal for lower potassium, of note is prescribed HCTZ. We will re-check level and further management pending results. Pt aware of symptoms that would require return to ED. 09/24/2023 Other Medical massage techniques may include MFR, Tigger point therapy, circulation massage, gua sha, cupping and other modalities to address patients CC 40 minutes was spent in the care of this patient which included chart review, history from the patient, physical assessment, manual therapy, education, answering patients questions and documentation 11/06/2023 [facility] flow sheet reveiwed and updated 02/13/2024 Other Patient presents with signs and [...] had with patient face to face in [facility] office. Consult and education time includes: 1)Previsit visit time: review patient acupuncture intake form, history of western medical conditions on file (EHR), imaging, lab results, sometime discussion with patient's PCP, 2) During visit time: intake and examination, palpation, consultation; 3)Post visit time: record clinic notes, sometime discussion with patient's PCP. Clean Needle Technique (CNT) is used in every treatment. Sbyj-nt-bodm time includes day-to-day evaluation, hand washing, choosing and cleaning points, inseting and manipulating needles, monitoring, removal, and disposal of needles, and completion of the chart notes with patient present. 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 TCM treatment principles: scatter the cold, disperse wind and dampness in the body. tonify Qi, move Blood and Qi 05/13/2024 Other Patient presents with signs and symptoms [...] had with patient face to face in [facility] office. Consult and education time includes: 1)Previsit visit time: review patient acupuncture intake form, history of western medical conditions on file (EHR), imaging, lab results, sometime discussion with patient's PCP, 2) During visit time: intake and examination, palpation, consultation; 3)Post visit time: record clinic notes, sometime discussion with patient's PCP. Clean Needle Technique (CNT) is used in every treatment. Uhad-jy-kzdt time includes day-to-day evaluation, hand washing, choosing and cleaning points, inseting and manipulating needles, monitoring, removal, and disposal of needles, and completion of the chart notes with patient present. 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 TCM treatment principles: scatter the cold, disperse wind and dampness in the body. tonify Qi, move Blood and Qi 05/21/2024 Other Patient presents with signs and symptoms [...] had with patient face to face in [facility] office. Consult and education time includes: 1)Previsit visit time: review patient acupuncture intake form, history of western medical conditions on file (EHR), imaging, lab results, sometime discussion with patient's PCP, 2) During visit time: intake and examination, palpation, consultation; 3)Post visit time: record clinic notes, sometime discussion with patient's PCP. Clean Needle Technique (CNT) is used in every treatment. Uvfp-ey-ocbs time includes day-to-day evaluation, hand washing, choosing and cleaning points, inseting and manipulating needles, monitoring, removal, and disposal of needles, and completion of the chart notes with patient present. 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 TCM treatment principles: scatter the cold, disperse wind and dampness in the body. tonify Qi, move Blood and Qi 07/05/2023 Other Extended visit of greater than [...] for future improved posture as described above. 12/19/2023 Other Patient presents with signs and [...] had with patient face to face in [facility] office. Consult and education time includes: 1)Previsit visit time: review patient acupuncture intake form, history of western medical conditions on file (EHR), imaging, lab results, sometime discussion with patient's PCP, 2) During visit time: intake and examination, palpation, consultation; 3)Post visit time: record clinic notes, sometime discussion with patient's PCP. Clean Needle Technique (CNT) is used in every treatment. Cjub-fp-offj time includes day-to-day evaluation, hand washing, choosing and cleaning points, inseting and manipulating needles, monitoring, removal, and disposal of needles, and completion of the chart notes with patient present. 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 TCM treatment principles: scatter the cold, disperse wind and dampness in the body. tonify Qi, move Blood and Qi 12/26/2023 Other Patient presents with signs and [...] had with patient face to face in [facility] office. Consult and education time includes: 1)Previsit visit time: review patient acupuncture intake form, history of western medical conditions on file (EHR), imaging, lab results, sometime discussion with patient's PCP, 2) During visit time: intake and examination, palpation, consultation; 3)Post visit time: record clinic notes, sometime discussion with patient's PCP. Clean Needle Technique (CNT) is used in every treatment. Sqvk-mp-wdks time includes day-to-day evaluation, hand washing, choosing and cleaning points, inseting and manipulating needles, monitoring, removal, and disposal of needles, and completion of the chart notes with patient present. 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 TCM treatment principles: scatter the cold, disperse wind and dampness in the body. tonify Qi, move Blood and Qi 01/01/2024 Other Pt did her bw a t [facility]. We do not have results. She is [...] as described above 01/08/2024 Other 45 minutes spent reviewing and prepping chart, patient visit/education , and completing chart. 01/08/2024 Other Patient presents with signs and [...] had with patient face to face in [facility] office. Consult and education time includes: 1)Previsit visit time: review patient acupuncture intake form, history of western medical conditions on file (EHR), imaging, lab results, sometime discussion with patient's PCP, 2) During visit time: intake and examination, palpation, consultation; 3)Post visit time: record clinic notes, sometime discussion with patient's PCP. Clean Needle Technique (CNT) is used in every treatment. Xgsf-zu-rypv time includes day-to-day evaluation, hand washing, choosing and cleaning points, inseting and manipulating needles, monitoring, removal, and disposal of needles, and completion of the chart notes with patient present. 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 TCM treatment principles: scatter the cold, disperse wind and dampness in the body. tonify Qi, move Blood and Qi 03/13/2024 Other Extended visit of greater than 40 minutes was had with patient face to face under the supervision of Esme Claudio MD. Greater than half the visit was spent in counselling and education regarding the patient's physical well being with training for future improved posture as described above. 03/30/2024 [facility] flow sheet reveiwed and updated 04/13/2024 Other -The patient has recurrent symptoms [...] which are sometimes used to help with chemotherapy-relat ed nausea, were offered, but she declined. Eventually, she agreed to go to the waiting room. 05/05/2024 Other pt w several yr hx of episodic N/V sometimes associated abdominal discomfort. reviewed hx w her, most recent episode, CT and labs. also reviewed ID consult which includes a comprehensive hx, infx source not suspected. mention of possible rheum eval, ? ANCA related vasculitis. also ? MRA to r/o mesenteric ischemia. pt has been see through [facility], although I am not currently seeing consult notes outlining care in her chart at our office. will request. she suspects at some point a gastric emptying scan has been performed. I see no evidence of this, but again will req GI records. labs as outlined. cont supportive care, pt aware of ER precautions. will remain out of work for the next few days, OOW note provided, may look into intermittent leave through FMLA. will need f/u after labs reviewed. Extensive counseling and emotional support. Overall time spent in patient care coordination, medical management, counseling and education of patient and family 40 minutes were spent involving this patient's care Plan Of Treatment Pending Test Test Name Order Date X ray : Chest PA and LAT 01/22/2011 X ray : Chest PA and LAT 01/09/2023 X ray : Chest PA and LAT 04/14/2007 X ray : Chest PA and LAT 09/10/2017 Urine Dip --in house 01/09/2023 Ultrasound : Breast, right 09/01/2009 Barium Swallow 06/11/2018 Echocardiogram 12/05/2023 Mammogram 12/14/2022 Mammogram 02/15/2016 Mammogram 05/11/2021 Mammogram 07/19/2021 Spirometry 10/22/2013 Spirometry 06/11/2018 Rapid Strep 08/27/2022 Urine Cytology ([facility]AL[facility]) 06/26/2017 Urine Cytology ([facility]) 10/30/2016 Colonoscopy 07/19/2021 Colonoscopy 05/11/2021 Colonoscopy 05/11/2021 ekg 01/09/2023 ekg 04/16/2022 -PAP, cervical: HPV HYBRID C APTURE HIGH RISK DNA PROBE if diagnosis of ASCUS 11/21/2006 X ray : Sinuses 04/03/2011 -CRP, High Sensitivity (HSCRP) 1 HEMOGLOBIN A1C 05/05/2024 URINE CULTURE (395 [facility]) 06/12/2022 MRI : brain 08/15/2006 -VITAMIN D2, D3 & TOTAL (250H) 2 -VITAMIN D2, D3 & TOTAL (250H) 1 -VITAMIN D2, D3 & TOTAL (250H) 2 -Pap Smear 09/13/2009 PAP, cervical; HPV Hybrid Capture High R isk DNA Probe any Dx 12/20/2021 PAP, cervical; HPV Hybrid Capture High R isk DNA Probe any Dx 10/26/2015 Mammogram, routine annual screening 05/2021 Mammogram, routine annual screening 07/09 Mammogram, routine annual screening 10/09 Mammogram, routine annual screening 05/2018 Mammogram, routine annual screening 08/2008 Mammogram, routine annual screening 10/09 Mammogram, routine annual screening 08/10 Mammogram, routine annual screening 10/09 Urine Osmo Random 06/05/2022 Urine, Sodium Random 06/05/2022 MRI : Wrist, Left 04/20/2010 -HEMOGLOBIN A1C (DIAGNOSTIC) 11/06/2011 -ROSS IFA, W/REFL TO TITER/PATTERN/CASCAD E 05/05/2024 AMYLASE 05/05/2024 TSH, 3RD GENERATION W/REFLEX TO FT4 04/12 CBC WITH DIFF 05/05/2024 VITAMIN B12/FOLATE, SERUM PANEL 05/05/19 SED RATE 05/05/2024 -TSH 09/19/2010 -TSH 08/28/2011 -TSH 09/14/2009 -LIPID PANEL, FASTING 11/06/2011 -LIPID PANEL, FASTING 07/20/2010 COMPREHENSIVE METABOLIC PANL -19163 04/12 COMPREHENSIVE METABOLIC PANL -90114 10/10 MRI: Lumbar spine with and without contr ast 07/16/2013 LIPID PANEL 05/05/2024 Stress Treadmill Test 12/05/2023 FERRITIN 12/14/2022 FERRITIN 11/23/2022 IRON & TIBC 11/23/2022 LIPASE 05/05/2024 HEMOGLOBIN A1C 10/30/2016 HEMOGLOBIN A1C 12/12/2017 HEMOGLOBIN A1C 06/26/2017 HEMOGLOBIN A1C 05/12/2018 HEMOGLOBIN A1C 06/24/2020 HSCRP 10/26/2015 HSCRP 07/27/2014 HSCRP 09/24/2013 COMPREHENSIVE METABOLIC PANL 01/09/2023 COMPREHENSIVE METABOLIC PANL 06/05/2022 COMPREHENSIVE METABOLIC PANL 11/23/2022 COMPREHENSIVE METABOLIC PANL 10/26/2015 COMPREHENSIVE METABOLIC PANL 06/24/2020 COMPREHENSIVE METABOLIC PANL 05/11/2021 COMPREHENSIVE METABOLIC PANL 07/19/2021 COMPREHENSIVE METABOLIC PANL 10/25/2014 COMPREHENSIVE METABOLIC PANL 06/26/2017 COMPREHENSIVE METABOLIC PANL 10/30/2016 COMPREHENSIVE METABOLIC PANL 05/12/2018 COMPREHENSIVE METABOLIC PANL 10/27/2022 COMPREHENSIVE METABOLIC PANL 07/24/2022 COMPREHENSIVE METABOLIC PANL 07/27/2014 COMPREHENSIVE METABOLIC PANL 12/12/2017 LIPID PANEL 07/27/2014 LIPID PANEL 10/25/2014 LIPID PANEL 10/30/2016 LIPID PANEL 10/26/2015 LIPID PANEL 05/11/2021 LIPID PANEL 07/24/2022 LIPID PANEL 07/19/2021 LIPID PANEL 12/12/2017 LIPID PANEL 06/26/2017 LIPID PANEL 05/12/2018 TSH WITH REFLEX TO T4 06/26/2017 TSH WITH REFLEX TO T4 07/24/2022 TSH WITH REFLEX TO T4 10/26/2015 TSH WITH REFLEX TO T4 07/19/2021 TSH WITH REFLEX TO T4 12/12/2017 TSH WITH REFLEX TO T4 10/30/2016 TSH WITH REFLEX TO T4 05/11/2021 TSH WITH REFLEX TO T4 10/25/2014 TSH WITH REFLEX TO T4 05/12/2018 CORTISOL 07/19/2021 ESTRADIOL 07/19/2021 INSULIN 06/24/2020 TSH 09/14/2013 TSH 07/27/2014 Vitamin D25 OH 07/19/2021 Vitamin D25 OH 05/11/2021 Vitamin D25 OH 12/12/2017 Vitamin D25 OH 05/12/2018 Vitamin D25 OH 07/27/2014 Vitamin D25 OH 09/24/2018 Vitamin D25 OH 07/24/2022 Vitamin D25 OH 10/26/2015 Vitamin D25 OH 08/24/2018 CBC 07/16/2013 CBC AUTO DIFF 05/12/2018 CBC AUTO DIFF 06/26/2017 CBC AUTO DIFF 07/24/2022 CBC AUTO DIFF 10/27/2022 CBC AUTO DIFF 10/26/2015 CBC AUTO DIFF 12/12/2017 CBC AUTO DIFF 01/09/2023 CBC AUTO DIFF 07/19/2021 CBC AUTO DIFF 09/24/2018 CBC AUTO DIFF 10/30/2016 CBC AUTO DIFF 10/25/2014 SED RATE 10/30/2016 SED RATE 12/14/2022 SED RATE 01/09/2023 SED RATE 10/27/2022 SED RATE 07/19/2021 ROSS (ANTI-NUCLEAR ANTIBODY SCREEN) USE THIS ONE 10/26/2015 ROSS (ANTI-NUCLEAR ANTIBODY SCREEN) USE THIS ONE 12/14/2022 CRP 07/19/2021 CRP 10/30/2016 CRP 10/25/2014 CRP 01/09/2023 CRP 10/27/2022 CRP 12/14/2022 CRP 11/23/2022 CRP 07/16/2013 RHEUMATOID FACTOR 10/26/2015 LYME AB 07/16/2013 LYME WESTERN BLOT (use this one) 023 URINE CULTURE 06/26/2017 URINE CULTURE 10/30/2016 EHRLICHIA AB (use this one) 10/26/2015 EHRLICHIA AB (use this one) 10/27/2022 BABESIA AB (use this one) 10/27/2022 BABESIA AB (use this one) 10/26/2015 URINALYSIS, COMPLETE 10/30/2016 URINALYSIS, COMPLETE 06/26/2017 Chest 2 Views Frontal and Lat 09/28/2013 Ultrasound : Pelvis and Endovag 06/12/19 CEA MONOCLONAL 10/30/2016 HEP C ANTIBODY 07/19/2021 LYME 10/26/2015 Hereditary Hemochromatosis 11/23/2022 pharmacological nuclear stress test 05/2018 TSH with reflex 12/05/2023 TSH with reflex 11/27/2019 1-25-OH vitamin D 11/27/2019 CBC 03/30/2024 CBC 12/05/2023 COMP MET PANEL 04/13/2024 COMP MET PANEL 11/27/2019 COMP MET PANEL 03/30/2024 COMP MET PANEL 12/05/2023 Hemoglobin A1c 12/05/2023 LIPID PANEL 11/27/2019 LIPID PANEL 03/30/2024 LIPID PANEL 12/05/2023 Urinalysis 04/13/2024 Amylase 04/13/2024 Free T4 03/30/2024 Lipase 04/13/2024 TSH 03/30/2024 CBC AND DIFFERENTIAL 11/27/2019 CBC AND DIFFERENTIAL 04/13/2024 US ABDOMEN 09/08/2018 US ABDOMEN 09/08/2018 IRON, TIBC AND FERRITIN PANEL 05/05/2024 Calcium Scoring Test 12/05/2023 XRAY : KUB 04/13/2024 H. PYLORI BREATH TEST 09/06/2022 CTA: Abdoman with and without contrast 1 03/12/2022 PERIPHERAL BLOOD SMEAR REVIEW 09/07/2022 CT Abd/Pelvis W/O Contrast 06/05/2022 1,25OH VITAMIN D 05/05/2024 Nuclear Stress Test : Pharmacological Coronary Artery Calcium Score 12/05/2023 TSH WITH REFLEX TO FT4 11/23/2022 VITAMIN B3 05/05/2024 LP(a) FRACTION 05/05/2024 CRP 05/05/2024 HSCRP 12/12/2023 HSCRP 12/05/2023 ANCA SCREEN WITH REFLEX TO TITER 025 Celiac Disease HLA Typing 05/05/2024 Future Test Test Name Order Date -VITAMIN D2, D3 & TOTAL (250H) 1 -TSH 03/27/2010 Next Appt Details Provider Name:Tyler mercado, 06/25/2024 10:30:00 AM, [address] [place], [address], Provider Name:Austin Rios, 0 09/21/2024 09:15:00 AM, [address] [place], [address], Provider Name:Austin Rios, 0 04/22/2025 09:00:00 AM, [address] [place], [address], Insurance Providers Payer Name Payer Address Payer Phone Subscriber Number Group Number Insured Name Patient Relationship to Insured Coverage Start Date Coverage End Date [employer] (O) [address] [address] [place] [address] [id number] RAND SAMANIEGO Self - patient is the insured Medications Administered Medication Instructions Date of Administration Dosage Notes Dexamethasone 08/31/2022 0.8 mL Promethazine 04/13/2024 25 mg Medical (General) History Medical History History ICD Code seasonal allergies pneumonia 08/25/09-and 12/2014-(many pneu monias as a child) Hypothyroidism HTN 09/2015 Pneumonia NOS Covid19 02/2022; Covid19 08/2023 NORMAL ECHO 12/2023; CAC score 0 01/2024 Surgical History Surgery Date(Month/Year) LRTI - arthroscopic surgery - [facility], Dr. Sherman 12/22/2020 Rt rotator cuff repair- Dr. Lovelace 05/10 S/P Abdominal Endometrioma ( [place]) 2 004 decompression of left median nerve dr El zuleta 06/07/2010 L rotator cuff tear repair w/ 10/04/09 endometrial ablation--[place] 07/2007 abdominal lipoma removed 2003 (2) c-sections 1986,1998 Hospitalization History Reason Date(Month/Year) [facility] for abd pain and vomiting 05/01/2024 [facility] for vomiting 02/2024 [facility] visit for vomiting 12/2022 [facility] for N/V, abdominal p ain 08/22-08/24/22
== END 2024-06-22 08:28 | disposition home or self-care (01) ==
LOC: HO.US 08:27
PROVIDERS: Visit Provider Internal Medicine Nephrology
DX: I10 Essential (primary) hypertension (principal)
CPT/HCPCS: 76775; 93975

== ENCOUNTER → 2024-06-22 08:51 | Outpatient (BNV) | payer OTHER, SELFPAY | PROVIDERS: Visit Provider Radiology Diagnostic Radiology | DX: I10 Essential (primary) hypertension (principal) | CPT/HCPCS: 76775; 93975 ==

== ENCOUNTER 2024-09-22 14:18 | Outpatient (REF) | payer OTHER, SELFPAY ==
--- OUTSIDE RECORDS SUMMARY | 2024-09-17 06:39 | XMS_ITS ---
Author Organization [facility] madeleine Address [address] [place] [address] Care Team Providers Care Outsole Leveler Name Role Phone Esme Claudio Primary Care Provider Austin Rios [phone] REASON FOR VISIT RE:PFML Encounters Encounter Location Date Provider Diagnosis [facility] [address] [place] [phone] 2024 Austin Rios Plan Of Treatment Next Appt Details Provider Name:Austin Rios, 0 09/28/2024 09:15:00 AM, [address] [place], [address], Provider Name:Austin Rios, 0 04/22/2025 09:00:00 AM, [address] [place] [address], [phone], Progress Notes * RAND SAMANIEGODOB:1960 (64 yo F)Acc No.[id number]:2024 Patient: Diana JACKELYNMALINDARAND :1960 A ge:64 Y S ex:Female Address:[place] [address] * true * Date: Generated for Printi ng/Faxing/eTransmitting on: 0 09/22/2024 03:32 PM EDT
[2024-09-22 14:34] LABS: MANUAL DIFF FLAG NO
[2024-09-22 15:12] LABS: Hematocrit 43.6 % (37.0-47.0); Hemoglobin 15.5 g/dl (12.0-16.0); Imm Gran Abs Auto 0.05 X10*3/uL (0.00-0.03); Imm Gran Pct Auto 0.4 % (0.0-0.4); Lymphocytes Absolute Auto 3.6 X10*3/uL (1.2-4.9); Mean Corpuscular HGB Conc 35.6 g/dl (31.0-35.0); Mean Corpuscular Hemoglobin 29.6 pg (27.0-33.0); Mean Corpuscular Volume 83.4 fL (80.0-98.0); NRBC Abs Auto 0.000 X10*3/uL (0.0-0.012); NRBC Pct Auto 0.0 /100WBC (0.0-0.2); Platelet Count 330 X10*3/uL (160-400); Red Blood Count 5.23 X10*6/uL (4.20-5.50); White Blood Count 13.0 X10*3/uL (4.8-10.8)
--- OUTSIDE RECORDS SUMMARY | 2024-09-22 15:32 | XMS_ITS | Encounter Summary ---
Author Organization [facility], Address [address] [place] [address] Phone Care Team Providers Care Customer Service Leader Name Role Phone Austin Rios PA-C Primary Care Provider [phone] Encounter Details Date Type Department Care Team (Late st Contact Info) Description 01/15/2024 Documentation Only [facility], [address] [place] [address] [place] [address] [place] [phone] Social History Tobacco Use Types Packs/Day [...] Visit [facility] [address] [place] [phone] Remberto Fletcher MD [address] [place] [address] [place] [phone] documented as of this encounter Visit Diagnoses Not on filedocumented in this encounter Care Teams Customer Service Leader Relationship Specialty Start Date End Date Austin Rios PA-C [address] [place] [phone] PCP - General Physician Felt Hooker 02/27/24 documented as of this encounter
[2024-09-22 15:38] LABS: Alanine Aminotransferase 26 U/L (0-31); Albumin Level 4.4 g/dL (3.5-5.0); Alkaline Phosphatase 86 U/L (39-117); Anion Gap 15 (12-20); Aspartate Amino Transferase 20 U/L (5-31); Blood Urea Nitrogen 21 mg/dL (9-16); Calcium 9.9 mg/dL (8.4-10.2); Carbon Dioxide 31 mmol/L (22-29); Chloride 93 mmol/L (96-108); Estimated Glomerular Filt Rate 41; Lipase 19 U/L (8-78); Sodium 136 mmol/L (135-145); Total Protein 6.7 g/dL (6.5-8.0)
[2024-09-22 16:07] LABS: Potassium 2.8 mmol/L (3.3-5.1)
== END 2024-09-22 14:19 | disposition home or self-care (01) ==
LOC: HO.LAB 14:18
PROVIDERS: PCP Physician Assistant; Visit Provider Physician Assistant
DX: R11.0 Nausea (principal); R50.9 Fever, unspecified
CPT/HCPCS: 36415; 80053; 83690; 85025; 86140

== ENCOUNTER 2024-09-24 09:46 | Outpatient (REF) | payer OTHER, SELFPAY ==
--- OUTSIDE RECORDS SUMMARY | 2024-09-22 12:06 | XMS_ITS ---
Author Organization [facility] madeleine Address [address] [place] [address] Care Team Providers Care Elementary Educator Name Role Phone Esme Claudio Primary Care Provider [phone] Austin Rios Unavailable [phone] Caleb Santana Unavailable [phone] REASON FOR VISIT (NEW INFO 09/23) critical lab Encounters Encounter Location Date Provider Diagnosis [facility] [address] [place] [address] 09/22/2024 Caleb Santana Plan Of Treatment Next Appt Details Provider Name:Austin Rios, 0 09/28/2024 09:15:00 AM, [address] [place], [address], Provider Name:Austin Rios, 0 04/22/2025 09:00:00 AM, [address] [place] [address], [phone], Progress Notes * RAND SAMANIEGODOB:1960 (64 yo F)Acc No.[id number]:09/22/2024 Patient: KALEE JESUSET :1960 A ge:64 Y S ex:Female Address:[place] [address] * * Date:
--- OUTSIDE RECORDS SUMMARY | 2024-09-24 10:10 | XMS_ITS | Encounter Summary ---
Author Organization [facility], Address [address] [place] [address] Phone Care Team Providers Care Timber Watchman Name Role Phone Austin Rios PA-C Primary Care Provider [phone] Encounter Details Date Type Department Care Team (Late st Contact Info) Description 01/15/2024 Documentation Only [facility], [address] [place] [place] [address] [place] [address] [place] [phone] Social History Tobacco Use Types Packs/Day [...] Visit [facility] [address] [place] [phone] Remberto Fletcher MD [address] [place] [address] [place] [phone] documented as of this encounter Visit Diagnoses Not on filedocumented in this encounter Care Teams Timber Watchman Relationship Specialty Start Date End Date Austin Rios PA-C [address] [place] [phone] PCP - General Physician Animal Caregiver 02/27/24 documented as of this encounter
[2024-09-24 11:42] LABS: Anion Gap 14 (12-20); Blood Urea Nitrogen 27 mg/dL (9-16); Calcium 9.0 mg/dL (8.4-10.2); Carbon Dioxide 30 mmol/L (22-29); Chloride 94 mmol/L (96-108); Estimated Glomerular Filt Rate 31; Potassium 2.8 mmol/L (3.3-5.1); Sodium 135 mmol/L (135-145)
[2024-09-24 13:40] LABS: B Type Natriuretic Peptide < 10 pg/mL (<100)
== END 2024-09-24 09:47 | disposition home or self-care (01) ==
LOC: HO.LAB 09:46
PROVIDERS: PCP Physician Assistant; Referring Provider Physician Assistant; Visit Provider Nurse Practitioner Family
DX: E87.6 Hypokalemia (principal)
CPT/HCPCS: 36415; 80048; 83880

== ENCOUNTER 2024-09-26 10:19 | Outpatient (REF) | payer OTHER, SELFPAY ==
--- OUTSIDE RECORDS SUMMARY | 2024-09-24 07:40 | XMS_ITS ---
Author Organization [facility] madeleine Address [address] [place] [address] Care Team Providers Care Academic Advising Director Name Role Phone Esme Claudio Primary Care Provider [phone] Austin Rios [phone] REASON FOR VISIT critical labs Encounters Encounter Location Date Provider Diagnosis [facility] [address] [place] [address] 09/24/2024 Austin Rios Hypokalemia E87.6 Assessments Encounter Date Diagnosis (ICD Code) Assessment Notes Treatment Notes Treatment Clinical Notes Section Notes 09/24/2024 Hypokalemia (ICD-10 - E87.6) Plan Of Treatment Pending Test Test Name Order Date BASIC METABOLIC PANEL 09/24/2024 Next Appt Details Provider Name:Austin Rios, 0 09/28/2024 09:15:00 AM, [address] [place], [address], Provider Name:Austin Rios, 0 04/22/2025 09:00:00 AM, [address] [place] [address], [phone], Progress Notes * VALENTINAKALEE HugginsHOLLEYDOB:1960 (64 yo F)Acc No.[id number]:09/24/2024 Patient: RAND JESUS :1960 A ge:64 Y S ex:Female Address:[address] [place] [address] Subjective: * Chief Complaints: * C ritical labs * Medical History: * Surgical History: * Hospitalization/Major Diagno stic Procedure: * Medications: Objective: * Vitals: * Physical Examination: Assessment: * Assessment: 1. H ypokalemia - E87.6 (Primary) Plan: * Treatment: * Procedure Codes: * true * Date: Generated for Deanna callaway/Bart/Foreign on: 0 09/26/2024 10:22 AM EDT
--- OUTSIDE RECORDS SUMMARY | 2024-09-26 10:22 | XMS_ITS | Encounter Summary ---
Author Organization [facility] Address [address] [place] [address] Phone Care Team Providers Care Reservations And Ticketing Agent Name Role Phone Esme Claudio MD Unavailable [phone] Roseann Lopez Primary Care Provider [phone] Esme Claudio MD Unavailable [phone] Encounter Details Date Type Department Care Team (Late st Contact Info) Description 12/10/2022 Procedure [facility] [address] [place] [address] Social History Tobacco Use Types Packs/Day Years [...] on file documented as of this encounter Visit Diagnoses Not on filedocumented in this encounter Care Teams Reservations And Ticketing Agent Relationship Specialty Start Date End Date Roseann Lopez PA [address] [place] [address] [address] [place] [address] [email or web address] PCP - General Unknown Provider Specialty 12/15/21 Esme Claudio MD [address] [place] [address] [email or web address] Historical LMR Provider 12/24/16 Esme Claudio MD [address] [place] [address] [email or web address] Insurance Assigned Provider 06/15/23 11/16/23 documented as of this encounter Additional Source Comments The information contained in this document represents components of the legal health record. It is not the complete legal health record.[facility]
--- OUTSIDE RECORDS SUMMARY | 2024-09-26 10:22 | XMS_ITS | Encounter Summary ---
Author Organization [facility], Address [address] [place] [address] Phone Care Team Providers Care Power Supply Engineer Name Role Phone Austin Rios PA-C Primary Care Provider Encounter Details Date Type Department Care Team (Late st Contact Info) Description 06/23/2024 Documentation Only [facility] [address] [place] [address] Lisbeth Avilez [address] [place] [phone] Social History Tobacco Use Types Packs/Day [...] Visit [facility] [address] [place] [phone] Remberto Fletcher MD [address] [place] [address] [place] [phone] documented as of this encounter Visit Diagnoses Not on filedocumented in this encounter Care Teams Power Supply Engineer Relationship Specialty Start Date End Date Austin Rios PA-C [address] [place] [phone] PCP - General Physician Location Man 02/27/24 documented as of this encounter
[2024-09-26 11:13] LABS: Anion Gap 13 (12-20); Blood Urea Nitrogen 24 mg/dL (9-16); Calcium 10.1 mg/dL (8.4-10.2); Carbon Dioxide 32 mmol/L (22-29); Chloride 103 mmol/L (96-108); Estimated Glomerular Filt Rate 51; Magnesium 1.8 mg/dL (1.6-2.6); Potassium 3.9 mmol/L (3.3-5.1); Sodium 144 mmol/L (135-145)
== END 2024-09-26 10:20 | disposition home or self-care (01) ==
LOC: HO.LAB 10:19
PROVIDERS: PCP Physician Assistant; Visit Provider Physician Assistant
DX: E87.6 Hypokalemia (principal)
CPT/HCPCS: 36415; 80048; 83735

== ENCOUNTER 2024-10-03 09:48 | Outpatient (REF) | payer OTHER, SELFPAY ==
--- OUTSIDE RECORDS SUMMARY | 2024-09-28 05:15 | XMS_ITS ---
Author Organization [facility] madeleine Address [address] [place] [address] Care Team Providers Care Tapper Hand Name Role Phone Esme Claudio Primary Care Provider Austin Rios Unavailable [phone] Allergies Allergen (clinical drug ingredient) Drug/Non Drug Allergy documented on EMR Reaction Allergy Type Onset Date Status acetaminophen / oxycodone Percocet itchy mouth, rash Drug Allergy Active Latex LATEX SENSITIVE (uncoded) when wearing gloves Allergy Active REASON FOR VISIT 1wk f/u GI Medications Medication SIG (Take, Route, Frequency, Duration) Notes Start Date End Date Status Potassium Chloride ER 20 MEQ 1 tablet with food Orally twice day for 30 days 09/24/2024 Active DULoxetine HCl 30 MG 1 capsule Orally Once a day for 30 days Active Vitamin B Complex 1 PO QD Ac tive Mupirocin 2 % 1 micah applied topically 3 times a day for 10 day(s) 03/01/2023 Not-Taking Ativan 0.5 MG 1 tablet Orally twice a day for 5 days PRN only, use sparingly 09/21/2024 Active PROzac 40 MG 1 cap(s) orally once a day for 90 days Active Cozaar 100 MG 1 tab(s) orally once a day for 90 days Active Adderall XR 30 MG 1 capsule in the morning Orally Once a day for 30 days 09/03/2024 Active Adderall 5 MG 1 tablet Orally once a day for 30 days sparingly only PRN 09/04/2024 Active Albuterol Sulfate HFA 108 (90 Base) MCG/ACT 2 puff(s) inhaled 4 times a day prn for 90 days prn 08/19/2017 Active Ondansetron 4 MG 1 tab(s) orally every 8 hours for 30 days Active Phenergan 12.5 MG 1 suppository as needed Rectal every 6 hrs for 30 days 05/05/2024 Active LORazepam 1 MG 1 tab(s) orally 1 times a day prn anxiety - sparing use for 30 days PRN 05/06/2024 Active Promethazine HCl 25 MG 1 suppository as needed Rectal every 6 hrs for 30 days As needed (Max 50mg per day) Max 50mg per day 05/01/2024 Active Nystatin 904271 UNIT/GM 1 application Externally Twice a day for 14 days As needed 09/11/2023 Active Flonase Allergy Relief 50 MCG/ACT 1 spray in each nostril Nasally Twice a day for 30 days 02/05/2024 Active amLODIPine Besylate 10 MG 1 tablet Orally Once a day for 90 days 12/05/2023 Active Cyclobenzaprine HCl 10 MG 1 tab(s) orally 3 times a day for 10 days Not-Taking Levothyroxine Sodium 100 MCG 1 tab(s) orally once a day for 90 days Active Naproxen 250 MG 1 tablet with food or milk as needed Orally every 12 hrs for 30 days As needed 03/30/2024 Active Fish Oil 2 capsules Orally once daily for 30 days Active Qvar RediHaler 80 MCG/ACT 1 puff(s) inhaled 2 times a day for 90 days 06/11/2018 Active Vital Signs Temperature 98.6 degrees Fahrenheit 09/29/19 25 Blood pressure systolic 118 mm Hg 09/29/19 25 Blood pressure diastolic 72 mm Hg 025 Height 59.75 in 09/28/2024 Weight 193.2 lbs 09/28/2024 BMI 38.04 kg/m2 09/28/2024 Oximetry 95 09/28/2024 Encounters Encounter Location Date Provider Diagnosis [facility] [address] [place], [place] [address] 09/28/2024 Austin Rios Hypokalemia E87.6 ; Vomiting unspecified R11.10 ; HTN I10 and Fatigue R53.83 Assessments Encounter Date Diagnosis (ICD Code) Assessment Notes Treatment Notes Treatment Clinical Notes Section Notes 09/28/2024 Hypokalemia (ICD-10 - E87.6) K+ has normalized, continue to hold the HCTZ and will discontinue the klor con as she is not having any further GI symptoms that could contribute to loss of K+. Nutrition is balanced and includes spinach and bananas often. Close mointoring with repeat labs later this week as discussed and patient will call back immed if any new /worsening symptoms. Her renal fct is also improving notably, will continue to trend 09/28/2024 Vomiting unspecified (ICD-10 - R11.10) none in past week now, feeling better, see above 09/28/2024 HTN (ICD-10 - I10) Chronic Condition stable and controlled. continue same plan with current medication and scheduled reassessment 09/28/2024 Fatigue (ICD-10 - R53.83) Feels cymbalta has led to less hand pain, no side effects, would like to try higher dose. Will increase to 60mg QD as discused and close f/u next week or sooner as needed Plan Of Treatment Medication Medication Name Sig Start Date Stop Date Notes DULoxetine HCl 30 MG 1 capsule Orally On ce a day for 30 days Treatment Notes Assessment Notes Hypokalemia K+ has normalized, c ontinue to hold the HCTZ and will discontinue the klor con as she is not having any further GI symptoms that could contribute to loss of K+. Nutrition is balanced and includes spinach and bananas often. Close mointoring with repeat labs later this week as discussed and patient will call back immed if any new /worsening symptoms. Her renal fct is also improving notably, will continue to trend Vomiting unspecified none in past week n ow, feeling better, see above HTN Chronic Condition st able and controlled. continue same plan with current medication and scheduled reassessment Fatigue Feels cymbalta has l ed to less hand pain, no side effects, would like to try higher dose. Will increase to 60mg QD as discused and close f/u next week or sooner as needed Next Appt Details Follow Up: f/u 1 week GI iss ues, Reason: Provider Name:Austin Rios, 0 10/05/2024 08:15:00 AM, [address], [place], [address], Provider Name:Austin Rios, 0 04/22/2025 09:00:00 AM, [address] [place], [address], Progress Notes * RAND SAMANIEGODOB:1960 (64 yo F)Acc No.[id number]:09/28/2024 Progress Note Patient: RAND JESUS Appointment Provider: ANTONELLA Carter :1960 A ge:64 Y S ex:Female Supervising Provider:Esme Cervantes on Date:09/28/2024 C HN#:[id number] Address:[address] [place], [place] [id number] Pcp:Esme Claudio Subjective: * Chief Complaints: * 1 . 1wk f/u GI. * HPI: I nterim History: 64 year old female presents for follow up see prior visits had 2+ week flare up of nausea, vomiting. She has had multiple episodes similar to this in past and has seen GI without clear diagnostic etiology. She is awaiting 2 specialist consutls thru [facility]. THe soonest GI appt is november. Last week noted to have K+ level of 2.8. Started on Klor-Con. Had repeat labs over weekend and now potassium is 3.9. Sodium 144. Creatinine 1.08, GFR 51. (previous GFR 31). Symptoms have calmed down now. 'feeling better'. Has discontinued the HCTZ, blood pressure has been good Does not feel more swollen, reports regained weight has appetite has returned and vomiting has stopped. * ROS: S ee HPI. Other systems reviewed and noncontributory except for as noted above . * Medical History: S easonal allergies, Pneumonia 08/25/09-and 12/2014-(many pneumonias as a child), Hypothyroidism, HTN 09/2015, Pneumonia NOS, Covid19 02/2022; Covid19 08/2023, NORMAL ECHO 12/2023; CAC score 0 01/2024. * Surgical History: ( 2) c-sections 1986,1998, abdominal lipoma removed 2003, endometrial ablation--[facility] 07/2007, L rotator cuff tear repair w/ 10/04/09, decompression of left median nerve dr Betancur 06/07/2010, S/P Abdominal Endometrioma ( [place]) 2003, Rt rotator cuff repair- Dr. Lovelace 05/31/2015, LRTI - arthroscopic surgery - [facility] Sarm[facility], Dr. Sherman 12/22/2020. * Hospitalization/Major Diagno stic Procedure: [facility] for N/V, abdominal pain 08/22-08/24/22, [facility] ER visit for vomiting 12/2022, [facility] ER for vomiting 02/2024, [facility] for abd pain and vomiting 05/01/2024. * Family History: F ather: alive, diagnosed with Stroke. M other: , Breast CA x2-postmenopausal, ?uterine CA (surgery 01/11) and COPD. M aternal Grand Father: colon ca. M aternal uncle: colon ca. M aternal aunt: Ovarian CA, post-menopausal. another one had colon cancer. S iblings: sister has pacemaker for heart block age 35. 2 brother(s) , 1 sister(s) - healthy. 2 son(s) , 2 daughter(s) - healthy. . chelsey-Gabriel Ferro Shannon and Carol Montes. * Social History: Ana perkins: in [place] alone. Smoking: yes F ormer Smoker: Y es quit 11/2023. A lcohol: Occasional wine @2x per month. Drug use: rare THC gummy. Marital Status: from tonya (carpenters supervisor-he carries the insurance), not dating. Children: 4. 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 Exercise: walks dog daily- - swim/kayak/bike all summer 3-4x week. Sexually active: No. Pets: 1 dog, 1 cat. fun-kayak/bike, read, concerts etc. she has lots of friends. * Medications: T aking Potassium Chloride ER 20 MEQ Tablet Extended Release 1 tablet with food Orally twice day , Taking Vitamin B Complex TAB 1 PO QD , Taking Qvar RediHaler 80 MCG/ACT Aerosol Breath Activated 1 puff(s) inhaled 2 times a day , Taking Fish Oil 2 capsules Orally once daily , Taking Flonase Allergy Relief 50 MCG/ACT Suspension 1 spray in each nostril Nasally Twice a day , Taking amLODIPine Besylate 10 MG Tablet 1 tablet Orally Once a day , Taking Levothyroxine Sodium 100 [...] Pharmacist: Max 50mg per day, Taking Nystatin 316377 UNIT/GM Cream 1 application Externally Twice a day As needed, Taking Ondansetron 4 MG Tablet Disintegrating 1 tab(s) orally every 8 hours , Taking Phenergan 12.5 MG Suppository 1 suppository as needed Rectal every 6 hrs , Taking LORazepam 1 MG Tablet 1 tab(s) orally 1 times a day prn anxiety - sparing use , Notes to Pharmacist: PRN, Taking PROzac 40 MG Capsule 1 cap(s) orally once a day , Taking Cozaar 100 MG Tablet 1 tab(s) orally once a day , Taking Adderall XR 30 MG Capsule Extended Release 24 Hour 1 capsule in the morning Orally Once a day , Taking Adderall 5 MG Tablet 1 tablet Orally once a day sparingly only, Notes to Pharmacist: PRN, Taking DULoxetine HCl 30 MG Capsule Delayed Release Sprinkle 1 capsule Orally Once a day , Taking Albuterol Sulfate HFA 108 (90 Base) MCG/ACT Aerosol Solution 2 puff(s) inhaled 4 times a day prn , Notes to Pharmacist: prn, Taking Ativan 0.5 MG Tablet 1 tablet Orally twice a day PRN only, use sparingly, Not-Taking/PRN Mupirocin 2 % Ointment 1 micah applied topically 3 times a day , Not-Taking/PRN Cyclobenzaprine HCl 10 MG Tablet 1 tab(s) orally 3 times a day , Medication List reviewed and reconciled with the patient * Allergies: L ATEX SENSITIVE: when wearing gloves, Percocet: itchy mouth, rash. Objective: * Vitals: I nitials:jm, Ht: 59.75 in, Wt: 193.2 lbs, BMI: 38.04 Index, Temp: 98.6 F, Temp Route: T, HR: 99, PulseOx: 95, BP: 118/72. * Examination: G eneral Examination: General Appearance: W ell appearing and in no acute distress. S kin L ips and nail beds pink. H EENT: H ead - NC/AT, clear conjunctivae, voice clear, handling secretions. N don, Thyroid : s upple. H eart: R RR, well perfused. Lungs: N o use of accessory muscles, no audible wheezes, no stridor. E xtremities: n o clubbing, no edema. N eurologic Exam: n on-focal exam, alert and oriented x 3. M usculoskeletal N ormal gait and station. Assessment: * Assessment: 1. H ypokalemia - E87.6 (Primary) 2 . V omiting unspecified - R11.10 ? 3 . H TN - I10 4 . F atigue - R53.83 Plan: * Treatment: 2. V omiting unspecified Notes: none in past week now, feeling better, see above 3. H TN Notes: Chronic Condition stable and controlled. continue same plan with current medication and scheduled reassessment 4. F atigue Start DULoxetine HCl Capsule Delayed Release Sprinkle, 30 MG, 1 capsule, Orally, Once a day, 30 days, 30, Refills 0. Notes: Feels cymbalta has led to less hand pain, no side effects, would like to try higher dose. Will increase to 60mg QD as discused and close f/u next week or sooner as needed * Follow Up: f /u 1 week GI issues * Images: Billing Information: * Visit Code: 30182 Office Visit, Established Pt. * Procedure Codes: Care Plan Details* * Electronic signature of Vivienne Claudio MD on 10/03/2024 at 09:51 AM EDT Sign off status: Pending * Appointment Provider: ANTONELLA Carter Date: 0 09/28/2024 Generated for Deanna callaway/Bart/Valeitting on: 0 10/03/2024 09:51 AM EDT History and Physical Notes * HPI (History of Present Illness) Category Sub-Category Detail Notes Category Not es Interim History 64 year old female presents for follow up see prior visits had 2+ week flare up of nausea, vomiting. She has had multiple episodes similar to this in past and has seen GI without clear diagnostic etiology. She is awaiting 2 specialist consutls thru [facility]. THe soonest GI appt is november. Last week noted to have K+ level of 2.8. Started on Klor-Con. Had repeat labs over weekend and now potassium is 3.9. Sodium 144. Creatinine 1.08, GFR 51. (previous GFR 31). Symptoms have calmed down now. 'feeling better'. Has discontinued the HCTZ, blood pressure has been good Does not feel more swollen, reports regained weight has appetite has returned and vomiting has stopped Examination Category Sub-Category Detail Notes Category Not es General Examination HEENT: Head - NC/AT , clear conjunctivae, voice clear, handling secretions Neck, Thyroid : supple Heart: RRR, well perfused Lungs: No use of accessory muscles, no audible wheezes, no stridor Extremities: no clubbing, no lucio a General Appearance: Well appearing and i n no acute distress Skin Lips and nail beds p ink Neurologic Exam: non-focal exam, aler t and oriented x 3 Musculoskeletal Normal gait and stat ion
--- OUTSIDE RECORDS SUMMARY | 2024-10-03 09:51 | XMS_ITS | Encounter Summary ---
Author Organization [facility], Address [address] [place] [address] Phone Care Team Providers Care Risk Management Director Name Role Phone Austin Rios PA-C Primary Care Provider [phone] Encounter Details Date Type Department Care Team (Late st Contact Info) Description 06/23/2024 Documentation Only [facility] [address] [place] [address] Lisbeth Avilez [address] [place] [phone] Social History Tobacco Use Types Packs/Day [...] Visit [facility] [address] [place] [phone] Remberto Fletcher MD [address] [place] [address] [place] [phone] documented as of this encounter Visit Diagnoses Not on filedocumented in this encounter Care Teams Risk Management Director Relationship Specialty Start Date End Date Austin Rios PA-C [address] [place] [address] PCP - General Physician Last Sorter 02/27/24 documented as of this encounter
[2024-10-03 10:55] LABS: Anion Gap 13 (12-20); Blood Urea Nitrogen 16 mg/dL (9-16); Calcium 9.0 mg/dL (8.4-10.2); Carbon Dioxide 24 mmol/L (22-29); Chloride 109 mmol/L (96-108); Estimated Glomerular Filt Rate > 60; Potassium 4.2 mmol/L (3.3-5.1); Sodium 142 mmol/L (135-145)
== END 2024-10-03 09:49 | disposition home or self-care (01) ==
LOC: HO.LAB 09:48
PROVIDERS: PCP Physician Assistant; Visit Provider Physician Assistant
DX: E87.6 Hypokalemia (principal)
CPT/HCPCS: 36415; 80048

== ENCOUNTER 2024-10-07 06:43 | Outpatient (REF) | payer OTHER, SELFPAY ==
--- OUTSIDE RECORDS SUMMARY | 2024-09-28 05:42 | XMS_ITS ---
Author Organization [facility] madeleine Address [address] [place] [address] Care Team Providers Care Client Insights Consultant Name Role Phone Esme Claudio Primary Care Provider Austin Rios [phone] REASON FOR VISIT order lab Encounters Encounter Location Date Provider Diagnosis [facility] [address] [place] [address] 09/28/2024 Austin Rios Hypokalemia E87.6 Assessments Encounter Date Diagnosis (ICD Code) Assessment Notes Treatment Notes Treatment Clinical Notes Section Notes 09/28/2024 Hypokalemia (ICD-10 - E87.6) Plan Of Treatment Pending Test Test Name Order Date BASIC METABOLIC PANEL 09/28/2024 Next Appt Details Provider Name:Austin Rios, 0 10/15/2024 09:30:00 AM, [address] [place] [address], [phone], Provider Name:Austin Rios, 0 04/22/2025 09:00:00 AM, [address] [place] [address], [phone], Progress Notes * VALENTINAJoseluis RANDDOB:1960 (64 yo F)Acc No.[id number]:09/28/2024 Patient: RAND JESUS :1960 A ge:64 Y S ex:Female Address:[address] [place] [phone] Subjective: * Chief Complaints: * O rder lab * Medical History: * Surgical History: * Hospitalization/Major Diagno stic Procedure: * Medications: Objective: * Vitals: * Physical Examination: Assessment: * Assessment: 1. H ypokalemia - E87.6 (Primary) Plan: * Treatment: * Procedure Codes: * true * Date: Generated for Deanna callaway/Bart/Foreign on: 0 10/07/2024 06:45 AM EDT
--- NOTE | ~2024-10-07 | XR_ITS ---
EXAMINATION: XR CHEST CLINICAL INFORMATION: SOB COMPARISON: None available. TECHNIQUE: 2 views of the chest were obtained. FINDINGS: Lungs are clear and well aerated. Heart size is within normal limits. Mediastinal structures are unremarkable. There are anchors in both humeral heads likely from rotator cuff repairs. Multilevel degenerative endplate changes are present in the midthoracic spine. XR/XR chest 2V IMPRESSION: No acute disease. Electronically signed by: Andrew Chinchilla MD 10/07/2024 04:15 PM EDT
--- OUTSIDE RECORDS SUMMARY | 2024-10-07 06:45 | XMS_ITS | Encounter Summary ---
Author Organization [facility], Address [address] [place] [address] Phone Care Team Providers Care Shaper Machine Hand Name Role Phone Austin Rios PA-C Primary Care Provider [phone] Encounter Details Date Type Department Care Team (Late st Contact Info) Description 06/23/2024 Documentation Only [facility] [address] [place] [address] Lisbeth Avilez [address] [place] [phone] Social History Tobacco Use Types Packs/Day [...] Visit [facility] [address] [place] [phone] Remberto Fletcher MD [address] [place] [address] [place] [phone] documented as of this encounter Visit Diagnoses Not on filedocumented in this encounter Care Teams Shaper Machine Hand Relationship Specialty Start Date End Date Austin Rios PA-C [address] [place] [address] PCP - General Physician Veterinary Bacteriologist 02/27/24 documented as of this encounter
[2024-10-07 06:54] LABS: MANUAL DIFF FLAG NO
[2024-10-07 07:13] LABS: Hematocrit 35.6 % (37.0-47.0); Hemoglobin 12.3 g/dl (12.0-16.0); Imm Gran Abs Auto 0.05 X10*3/uL (0.00-0.03); Imm Gran Pct Auto 0.6 % (0.0-0.4); Lymphocytes Absolute Auto 2.2 X10*3/uL (1.2-4.9); Mean Corpuscular HGB Conc 34.6 g/dl (31.0-35.0); Mean Corpuscular Hemoglobin 29.6 pg (27.0-33.0); Mean Corpuscular Volume 85.8 fL (80.0-98.0); NRBC Abs Auto 0.000 X10*3/uL (0.0-0.012); NRBC Pct Auto 0.0 /100WBC (0.0-0.2); Platelet Count 291 X10*3/uL (160-400); Red Blood Count 4.15 X10*6/uL (4.20-5.50); White Blood Count 7.8 X10*3/uL (4.8-10.8)
[2024-10-07 07:26] LABS: Alanine Aminotransferase 25 U/L (0-31); Albumin Level 4.3 g/dL (3.5-5.0); Alkaline Phosphatase 103 U/L (39-117); Anion Gap 14 (12-20); Aspartate Amino Transferase 19 U/L (5-31); Blood Urea Nitrogen 11 mg/dL (9-16); Calcium 9.1 mg/dL (8.4-10.2); Carbon Dioxide 26 mmol/L (22-29); Chloride 107 mmol/L (96-108); Estimated Glomerular Filt Rate > 60; Potassium 3.9 mmol/L (3.3-5.1); Sodium 143 mmol/L (135-145); Total Protein 6.6 g/dL (6.5-8.0)
== END 2024-10-07 06:44 | disposition home or self-care (01) ==
LOC: HO.LAB 06:43
PROVIDERS: PCP Physician Assistant; Visit Provider Physician Assistant
DX: R06.02 Shortness of breath (principal); R73.01 Impaired fasting glucose; Z82.49 Family history of ischemic heart disease and other diseases of the circulatory system
CPT/HCPCS: 36415; 71046; 80053; 83880; 85025

== ENCOUNTER → 2024-10-07 16:00 | Outpatient (BNV) | payer OTHER, SELFPAY | PROVIDERS: PCP Physician Assistant; Visit Provider Radiology Diagnostic Radiology | DX: R06.02 Shortness of breath (principal) | CPT/HCPCS: 71046 ==

== ENCOUNTER 2024-12-08 14:56 | Outpatient (AMB) | payer OTHER, SELFPAY ==
--- OUTSIDE RECORDS SUMMARY | 2009-08-30 | XMS_ITS | Encounter Summary ---
Author Organization [facility] Address [address] [place] [address] Phone Care Team Providers Care Rapier Insertion Loom Fixer Name Role Phone Unavailable Primary Care Provider Unavailabl e Encounter Details Date Type Department Care Team (Late st Contact Info) Description 08/30/2009 Hospital Encounter [facility],Outside Imaging 30 [place], [place] [phone] System, Provider Not In, PhD Partners [address] [address] Social History Tobacco Use Types Packs/Day Years [...] on file documented as of this encounter Functional Status * Calculated C-SSRS Risk Score (Lifetime/Recent) Answer Date of Assessment Author No Risk Indicated 01/06/2023 9:30 PM EDT Dahlia Fajardo, JOÃO * [place] Suicide Severity Rating Scale (Screener/Recent Self-Report) Question Answer Date of Assessment Author 1. Wish to be (Past 1 Month) No 10/29/2 023 9:30 PM EDT Dahlia Fajardo, RN 2. Non-Specific Active Suici karol Thoughts (Past 1 Month) No 01/06/2023 9:30 PM EDT Maria G Fajardo, JOÃO 6. Suicidal Behavior (Lifetime) No 3 9:30 PM EDT Dahlia Fajardo, RN documented as of this encounter Plan of [...] It is not the complete legal health record.[facility]
--- OUTSIDE RECORDS SUMMARY | 2009-09-01 | XMS_ITS | Encounter Summary ---
Author Organization [facility] Address [address] [place] [address] Phone Care Team Providers Care Felter Tennis Balls Name Role Phone Unavailable Primary Care Provider Unavailabl e Encounter Details Date Type Department Care Team (Late st Contact Info) Description 09/01/2009 Hospital Encounter [facility],Outside Imaging 30 [place], [place] [phone] System, Provider Not In, PhD Partners [address] [address] Social History Tobacco Use Types Packs/Day Years [...] 9:30 PM EDT Dahlia Fajardo, JOÃO * [place] Suicide Severity Rating Scale (Screener/Recent Self-Report) Question [...] It is not the complete legal health record.[facility]
--- OUTSIDE RECORDS SUMMARY | 2010-09-04 | XMS_ITS | Encounter Summary ---
Author Organization [facility] Address [address] [place] [address] Phone Care Team Providers Care Cloth Printing Utility Worker Name Role Phone Unavailable Primary Care Provider Unavailabl e Encounter Details Date Type Department Care Team (Late st Contact Info) Description 09/04/2010 Hospital Encounter [facility],Outside Imaging 30 [place], [place] [phone] System, Provider Not In, PhD Partners [address] [address] Social History Tobacco Use Types Packs/Day Years [...] 9:30 PM EDT Dahlia Fajardo, JOÃO * [place] Suicide Severity Rating Scale (Screener/Recent Self-Report) Question [...] It is not the complete legal health record.[facility]
--- OUTSIDE RECORDS SUMMARY | 2011-09-20 | XMS_ITS | Encounter Summary ---
Author Organization [facility] Address [address] [place] [phone] Phone Care Team Providers Care Window Installation Subcontractor Name Role Phone Unavailable Primary Care Provider Unavailabl e Encounter Details Date Type Department Care Team (Late st Contact Info) Description 09/20/2011 Hospital Encounter [facility],Outside Imaging 30 [place], [place] [phone] System, Provider Not In, PhD Partners [address] [address] Social History Tobacco Use Types Packs/Day Years [...] 9:30 PM EDT Dahlia Fajardo, JOÃO * [place] Suicide Severity Rating Scale (Screener/Recent Self-Report) Question [...] is not the complete legal health record.[facility]
--- OUTSIDE RECORDS SUMMARY | 2012-11-13 | XMS_ITS | Encounter Summary ---
Author Organization [facility] Address [address] [place] [address] Phone Care Team Providers Care Assistant Director Of Public Works Name Role Phone Unavailable Primary Care Provider Unavailabl e Encounter Details Date Type Department Care Team (Late st Contact Info) Description 11/13/2012 Hospital Encounter [facility],Outside Imaging 30 [place], [place] [phone] System, Provider Not In, PhD Partners [address] [address] Social History Tobacco Use Types Packs/Day Years [...] 9:30 PM EDT Dahlia Fajardo, JOÃO * [place] Suicide Severity Rating Scale (Screener/Recent Self-Report) Question [...]
--- OUTSIDE RECORDS SUMMARY | 2024-10-21 12:30 | XMS_ITS ---
Author Organization [facility] madeleine Address [address] [place] [address] Care Team Providers Care Tester Sound Name Role Phone Esme Claudio Primary Care Provider [phone] Austin Rios [phone] REASON FOR VISIT f/u swelling (IH) Encounters Encounter Location Date Provider Diagnosis [facility] [address] [place] [address] 10/21/2024 Austin Rios Plan Of Treatment Next Appt Details Provider Name:Austin Rios, 1 04/18/2024 08:30:00 AM, [address] [place], [address], Provider Name:Austin Rios, 0 04/22/2025 09:00:00 AM, [address] [place] [address], [phone], Progress Notes * RAND SAMANIEGODOB:1960 (64 yo F)Acc No.[id number]:10/21/2024 Progress Note Patient: RAND JESUS Provider: ANTONELLA Carter :1960 A ge:64 Y S ex:Female Date:10/21/2024 C HN#:[id number] Address:[place], [id number] Pcp:Esme Claudio Subjective: * Chief Complaints: * f /u swelling (IH) Billing Information: * Procedure Codes: Care Plan Details* * Electronic signature of Austin Rios PA-C on 12/08/2024 at 04:16 PM EDT Sign off status: Pending * Provider: ANTONELLA Carter Date: 0 10/21/2024 Generated for Deanna callaway/Bart/Foreign on: 0 12/08/2024 04:16 PM EDT
--- OUTSIDE RECORDS SUMMARY | 2024-11-12 05:45 | XMS_ITS ---
Author Organization [facility] Address [address] [place] [address] Care Team Providers Care Home Improvement Advisor Name Role Phone Esme Claudio Primary Care Provider [phone] Austin Rios Unavailable [phone] Allergies Allergen (clinical drug ingredient) Drug/Non Drug Allergy documented on EMR Reaction Allergy Type Onset Date Status LATEX SENSITIVE (uncoded) when wearing gloves Allergy Active acetaminophen / oxycodone Percocet itchy mouth, rash Drug Allergy Active REASON FOR VISIT fu fatigue (IH), Imms: offer flu vaccine, pt declines today, Pt reports that the swelling and SOB have resolved Medications Medication SIG (Take, Route, Frequency, Duration) Notes Start Date End Date Status Qvar RediHaler 80 MCG/ACT Aerosol Breath Activated 1 puff(s) inhaled 2 times a day; Duration: 90 days 06/11/2018 Active Vitamin B Complex TAB 1 PO QD Active Phenergan 12.5 MG Suppository 1 suppository as needed Rectal every 6 hrs; Duration: 30 days As needed 05/05/2024 Not-Taking/P RN Ondansetron 4 MG Tablet Disintegrating 1 tab(s) orally every 8 hours; Duration: 30 days As needed Not-Taking/P RN Promethazine HCl 25 MG Suppository 1 suppository as needed Rectal every 6 hrs; Duration: 30 days As needed (Max 50mg per day) Max 50mg per day 05/01/2024 Not-Taking/P RN Cyclobenzaprine HCl 10 MG Tablet 1 tab(s) orally 3 times a day; Duration: 10 days As needed Active Adderall XR 30 MG Capsule Extended Release 24 Hour 1 capsule in the morning Orally Once a day; Duration: 60 days 10/08/2024 Active Mupirocin 2 % Ointment 1 micah applied topically 3 times a day; Duration: 10 days As needed 03/01/2023 Active Potassium Chloride ER 20 MEQ Tablet Extended Release 1 tablet with food Orally twice day; Duration: 30 days As needed 09/24/2024 Not-Taking/P RN Levothyroxine Sodium 100 MCG Tablet 1 tab(s) orally once a day; Duration: 90 days Active amLODIPine Besylate 10 MG Tablet 1 tablet Orally Once a day; Duration: 90 days Active Spironolactone 50 MG Tablet 1 tablet Orally Once a day; Duration: 90 days stop the cozaar 10/05/2024 Active DULoxetine HCl 60 MG Capsule Delayed Release Particles 1 capsule Orally Once a day; Duration: 60 days 10/08/2024 Active Albuterol Sulfate HFA 108 (90 Base) MCG/ACT Aerosol Solution 2 puff(s) inhaled 4 times a day prn; Duration: 90 days prn 08/19/2017 Active Adderall 5 MG Tablet 1 tablet Orally once a day; Duration: 30 days sparingly only PRN 09/04/2024 Active LORazepam 1 MG Tablet 1 tab(s) orally 1 times a day prn anxiety - sparing use; Duration: 30 days PRN 05/06/2024 Active Flonase Allergy Relief 50 MCG/ACT Suspension 1 spray in each nostril Nasally Twice a day; Duration: 30 days 02/05/2024 Active Fish Oil 2 capsules Orally once daily; Duration: 30 days Active Naproxen 250 MG Tablet 1 tablet with food or milk as needed Orally every 12 hrs; Duration: 30 days As needed 03/30/2024 Active Social History Social History Social History Social Info Question Answer Notes Smoking: Former Smoker: Yes quit 11/2023 Additional Details Category Social Info Options Details Social History 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 she has lots of friends Vital Signs Temperature 96.5 degrees Fahrenheit 11/13/19 25 Blood pressure systolic 122 mm Hg 11/13/19 25 Blood pressure diastolic 70 mm Hg 025 Height 59.75 in 11/12/2024 Weight 187 lbs 11/12/2024 BMI 36.82 kg/m2 11/12/2024 Oximetry 96 11/12/2024 pt says weight this morning was 187.1. Pt declines IH weight today. Encounters Encounter Location Date Provider Diagnosis [facility] [address] [place] [id number] 11/12/2024 Austin Rios Nausea and/or vomiti ng R11.2 ; HTN I10 and Edema localized R60.0 Assessments Encounter Date Diagnosis (ICD Code) Assessment Notes Treatment Notes Treatment Clinical Notes Section Notes 11/12/2024 Nausea and/or vomiting (ICD-10 - R11.2) Has recently had period of stability with only occasional mild nausea. No severe vomiting episodes. He has been awaiting GI consult and its coming up at end of this month now. 11/12/2024 HTN (ICD-10 - I10) Chronic Condition stable and controlled. continue same plan with current medication and scheduled reassessment, tolerating medications well 11/12/2024 Edema localized (ICD-10 - R60.0) Reports this has resolved , on exam no notable swelling and weight back to her baseline. She is tolerating the spironolactone well. Plan Of Treatment Treatment Notes Assessment Notes Nausea and/or vomiting Has recently had period of stability with only occasional mild nausea. No severe vomiting episodes. He has been awaiting GI consult and its coming up at end of this month now. HTN Chronic Condition st able and controlled. continue same plan with current medication and scheduled reassessment, tolerating medications well Edema localized Reports this has res olved , on exam no notable swelling and weight back to her baseline. She is tolerating the spironolactone well. Next Appt Details Follow Up: f/u 3 months yoel alvareze, Reason: Provider Name:Austin Rios, 1 04/18/2024 08:30:00 AM, [address], [place], [id number], Provider Name:Austin Rios, 0 04/22/2025 09:00:00 AM, [address] [place], [id number], History and Physical Notes * HPI (History of Present Illness) Category Sub-Category Detail Notes Category Not es Interim History 64 year old female presents for follow up visit Rheumatology consult : reports [place] [facility] [place] telling [place] they arent [place] new patients and to keep calling back to check in. Nothing scheduled, has been waiting months. She is going to try to call her insurance to ask about how to resolve this issue. GI consult is scheduled for 12/08. See CC above, prior leg swelling and sensation of shortness of breath have resolved. Weight back to her baseline. Lots of work stressors. Has been feeling ok overall. Had recent bout of nausea but did not progress to the episodes of vomiting and resolved on its own. Feeling good today Examination Category Sub-Category Detail Notes Category Not es General Examination HEENT: Head - NC/AT , clear conjunctivae, voice clear, handling secretions Neck, Thyroid : supple Heart: tachycardic rate, re gular rhythm Lungs: No use of accessory muscles, no audible wheezes, no stridor, clear to auscultation Extremities: no clubbing, no lucio a General Appearance: Well appearing and i n no acute distress Skin Lips and nail beds p ink Neurologic Exam: non-focal exam Musculoskeletal Normal gait and stat ion Progress Notes * RAND SAMANIEGODOB:1960 (64 yo F)Acc No.[id number]:11/12/2024 Progress Note Patient: RAND JESUS Provider: ANTONELLA Carter :1960 A ge:64 Y S ex:Female Date:11/12/2024 C #:[id number] Address:[address] [place], [place] [id number] Pcp:Esme Claudio Subjective: * Chief Complaints: * f u fatigue (IH)Imms: offer flu vaccine, pt declines todayPt reports that the swelling and SOB have resolved * HPI: I nterim History: 64 year old female presents for follow up visit Rheumatology consult : reports insurance [place] [facility] [place] are telling her they arent taking new patients and to keep calling back to check in. Nothing scheduled, has been waiting months. She is going to try to call her insurance to ask about how to resolve this issue. GI consult is scheduled for 12/08. See CC above, prior leg swelling and sensation of shortness of breath have resolved. Weight back to her baseline. Lots of work stressors. Has been feeling ok overall. Had recent bout of nausea but did not progress to the episodes of vomiting and resolved on its own. Feeling good today. * ROS: S ee HPI. Other systems reviewed and noncontributory except for as noted above . * Medical History: Seasonal allergies Pneumonia 08/25/09-and 12/2014-(many pneumonias as a child) Hypothyroidism HTN 09/2015 Pneumonia NOS Covid19 02/2022; Covid19 08/2023 NORMAL ECHO 12/2023; CAC score 0 01/2024 Medical History Verified * Surgical History: (2) c-sections 1986,1998 abdominal lipoma removed 2003 endometrial ablation- [place] 07/2007 L rotator cuff tear repair w/ 10/04/09 decompression of left median nerve dr Betancur 06/07/2010 S/P Abdominal Endometrioma ( [place]) 2003 Rt rotator cuff repair- Dr. Lovelace 05/31/2015 LRTI - [facility], Dr. Sherman 12/22/2020 Surgical History verified. * Hospitalization/Major Diagno stic Procedure: [facility] for N/V, abdominal pain 08/22-08/24/22 [facility] ER visit for vomiting 12/2022 [facility] ER for vomiting 02/2024 [facility] [place] 05/01/2024 Hospitalization Verified. * Family History: F ather: alive, diagnosed [...] son(s) , 2 daughter(s) - healthy. . F amily History Verified.. kids-Pillo, Gabriel, Megan and Carol Montes. * Social History: Ana perkins: in [place] alone. Smoking: yes F radhika Smoker: Y jc quit 11/2023. A lcohol: Occasional wine @2x per month. Drug use: rare THC gummy. 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 Children: 4. 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 Gnosticism: Gnosticism, somewhat practicing- [employer]. Exercise: walks dog daily- - swim/kayak/bike all summer 3-4x week. Sexually active: No. Pets: 1 dog, 1 cat. Social History Verified. fun-kayak/bike, read, concerts etc. she has lots of friends. * Medications: T akingVitamin B Complex TAB 1 PO QD Qvar RediHaler 80 MCG/ACT Aerosol Breath Activated 1 puff(s) inhaled 2 times a day Fish Oil 2 capsules Orally once daily Flonase Allergy Relief 50 MCG/ACT Suspension 1 spray in each nostril Nasally Twice a day Naproxen 250 MG Tablet 1 tablet with food or milk as needed Orally every 12 hrs As neededLORazepam 1 MG Tablet 1 tab(s) orally 1 times a day prn anxiety - sparing use , Notes to Pharmacist: PRNAdderall 5 MG Tablet 1 tablet Orally once a day sparingly only, Notes to Pharmacist: PRNAlbuterol Sulfate HFA 108 (90 Base) MCG/ACT Aerosol Solution 2 puff(s) inhaled 4 times a day prn , Notes to Pharmacist: prnSpironolactone 50 MG Tablet 1 tablet Orally Once a day , Notes to Pharmacist: stop the cozaarDULoxetine HCl 60 MG Capsule Delayed Release Particles 1 capsule Orally Once a day Adderall XR 30 MG Capsule Extended Release 24 Hour 1 capsule in the morning Orally Once a day amLODIPine Besylate 10 MG Tablet 1 tablet Orally Once a day Levothyroxine Sodium 100 MCG Tablet 1 tab(s) orally once a day Mupirocin 2 % Ointment 1 micah applied topically 3 times a day As neededCyclobenzaprine HCl 10 MG Tablet 1 tab(s) orally 3 times a day As neededTaking Vitamin B Complex TAB 1 PO QD Taking Qvar RediHaler 80 MCG/ACT Aerosol Breath Activated 1 puff(s) inhaled 2 times a day Taking Fish Oil 2 capsules Orally once daily Taking Flonase Allergy Relief 50 MCG/ACT Suspension 1 spray in each nostril Nasally Twice a day Taking Naproxen 250 MG Tablet 1 tablet with food or milk as needed Orally every 12 hrs As neededTaking LORazepam 1 MG Tablet 1 tab(s) orally 1 times a day prn anxiety - sparing use , Notes to Pharmacist: PRNTaking Adderall 5 MG Tablet 1 tablet Orally once a day sparingly only, Notes to Pharmacist: PRNTaking Albuterol Sulfate HFA 108 (90 Base) MCG/ACT Aerosol Solution 2 puff(s) inhaled 4 times a day prn , Notes to Pharmacist: prnTaking Spironolactone 50 MG Tablet 1 tablet Orally Once a day , Notes to Pharmacist: stop the cozaarTaking DULoxetine HCl 60 MG Capsule Delayed Release Particles 1 capsule Orally Once a day Taking Adderall XR 30 MG Capsule Extended Release 24 Hour 1 capsule in the morning Orally Once a day Taking amLODIPine Besylate 10 MG Tablet 1 tablet Orally Once a day Taking Levothyroxine Sodium 100 MCG Tablet 1 tab(s) orally once a day Taking Mupirocin 2 % Ointment 1 micah applied topically 3 times a day As neededTaking Cyclobenzaprine HCl 10 MG Tablet 1 tab(s) orally 3 times a day As neededNot-Taking/PRNPotassium Chloride ER 20 MEQ Tablet Extended Release 1 tablet with food Orally twice day As neededPromethazine HCl 25 MG Suppository 1 suppository as needed Rectal every 6 hrs As needed (Max 50mg per day), Notes to Pharmacist: Max 50mg per dayOndansetron 4 MG Tablet Disintegrating 1 tab(s) orally every 8 hours As neededPhenergan 12.5 MG Suppository 1 suppository as needed Rectal every 6 hrs As neededNot-Taking/PRN Potassium Chloride ER 20 MEQ Tablet Extended Release 1 tablet with food Orally twice day As neededNot-Taking/PRN Promethazine HCl 25 MG Suppository 1 suppository as needed Rectal every 6 hrs As needed (Max 50mg per day), Notes to Pharmacist: Max 50mg per dayNot-Taking/PRN Ondansetron 4 MG Tablet Disintegrating 1 tab(s) orally every 8 hours As neededNot-Taking/PRN Phenergan 12.5 MG Suppository 1 suppository as needed Rectal every 6 hrs As neededDiscontinuedNystatin [id number] UNIT/GM Cream 1 application Externally Twice a day As neededCozaar 100 MG Tablet 1 tab(s) orally once a day PROzac 40 MG Capsule 1 cap(s) orally once a day Ativan 0.5 MG Tablet 1 tablet Orally twice a day PRN only, use sparinglyMedication List reviewed and reconciled with the patientDiscontinued Nystatin [id number] UNIT/GM Cream 1 application Externally Twice a day As neededDiscontinued Cozaar 100 MG Tablet 1 tab(s) orally once a day Discontinued PROzac 40 MG Capsule 1 cap(s) orally once a day Discontinued Ativan 0.5 MG Tablet 1 tablet Orally twice a day PRN only, use sparinglyMedication List reviewed and reconciled with the patient * Allergies: L ATEX SENSITIVE: when wearing glovesPercocet: itchy mouth, rashyesAllergies Verified. Objective: * Vitals: I nitials:ldb, Ht: 59.75 in, Wt: 187 lbs, BMI: 36.82 Index, Temp: 96.5 F, Temp Route: T, HR: 109 /min, PulseOx: 96, BP: 122/70 mm Hg. pt says weight this morning was 187.1. Pt declines IH weight today. * Examination: G eneral Examination: General Appearance: W ell appearing and in no acute distress. S kin L ips and nail beds pink. H EENT: H ead - NC/AT, clear conjunctivae, voice clear, handling secretions. N don, Thyroid : s upple. H eart: t achycardic rate, regular rhythm. L ungs: N o use of accessory muscles, no audible wheezes, no stridor, clear to auscultation. E xtremities: n o clubbing, no edema. N eurologic Exam: n on-focal exam. M usculoskeletal N ormal gait and station. Assessment: * Assessment: 1. N ausea and/or vomiting - R11.2 (Primary) 2 . H TN - I10 ?3. E supa localized - R60.0 Plan: * Treatment: 2. H TN Notes: Chronic Condition stable and controlled. continue same plan with current medication and scheduled reassessment, tolerating medications well 3. E supa localized Notes: Reports this has resolved , on exam no notable swelling and weight back to her baseline. She is tolerating the spironolactone well. * Follow Up: f /u 3 months fatigue Billing Information: * Visit Code: [id number] Office Visit, Established Pt. Care Plan Details* * Electronic signature of Austin Rios PA-C on 12/08/2024 at 04:17 PM EDT Sign off status: Pending * Provider: ANTONELLA Carter Date: 11/12/2024 Generated for Deanna callaway/Bart/Valeitting on: 12/08/2024 04:17 PM EDT
--- NOTE | 2024-12-08 14:58 | MHC.OFFVIS ---
Vital Signs 12/08/24 14:59 Height 5 ft Intake Visit Reasons: Stomach pain/VM r/s 08/04/24 Intake Note: New patient in office today for nausea, vomiting, and dry heaves. CC: Onset of sx 3 years ago, intermittent, not able to trace to foods or beverages. She gets sick with nausea, vomiting, dry heaves, muscle cramps on arm and legs, fever and chills. Bowel movements used to be regular but no she alternates between constipation and very loose stools. Door Glass Installer Required: No Accompanied by: Self / Same As Patient Allergies acetaminophen (From Percocet) Allergy (Verified 12/08/24 15:15) Swelling latex Allergy (Verified 12/08/24 15:15) Hives oxycodone (From Percocet) Allergy (Verified 12/08/24 15:15) Swelling HPI HPI Stomach pain/VM r/s 08/04/24: Details: 63-year-old female here for initial evaluation of abdominal pain and vomiting. She is referred by our ER but her primary care provider is from [facility]. PMX Allergic rhinitis Asthma-on inhalers Hypertension Hypothyroid ADHD Chronic nausea and vomiting intermittently * SURGICAL HISTORY C-sections Lipoma removal Endometrial ablation bilateral rotator cuff repair Left CMC joint repair Abdominal endometrioma Right rotator cuff repair Arthroscopic hand surgery * ALLERGIES Latex Percocet * [employer] LABS: Laboratory Tests 10/07/24 06:52 WBC 7.8 Hgb 12.3 D Hct 35.6 L MCV 85.8 MCH 29.6 Plt Count 291 Estimated GFR > 60 Random Glucose 157 H Total Bilirubin 0.6 AST 19 ALT [address] ABDOMEN AND PELVIS 05/01/2024 FINDINGS: LUNG BASES: No acute airspace disease or gross pulmonary nodules. LIVER, GALLBLADDER, AND BILIARY TREE: Liver measures 17 cm with decreased enhancement pattern. No focal mass. Portal veins, hepatic veins and intrahepatic portion of the IVC are patent. No intrahepatic biliary ductal dilatation. Probable tiny cholelithiasis. No pericholecystic fluid collection or gallbladder wall thickening. Common bile duct measures 4 mm. PANCREAS: No focal mass. No peripancreatic fluid collection. No main pancreatic ductal dilatation. SPLEEN: 9 cm. No focal lesion. ADRENAL GLANDS: No nodular lesions. KIDNEYS AND URETERS: No gross renal mass. No hydronephrosis. No gross nephrolithiasis. BLADDER: Fluid-filled. GASTROINTESTINAL TRACT: There are numerous diverticula throughout the large intestine. Abundant stool. No intestinal obstruction pattern. Gas and fluid-filled nondistended small bowel loops. No gross wall thickening. Appendix is normal. Terminal ileum is normal. No ascites. No pneumoperitoneum. No pneumatosis intestinalis. No peripheral enhancing fluid collections, peritoneal cavity. ABDOMINAL WALL: Small fat-containing umbilical hernia. LYMPH NODES: Nonspecific mildly prominent lymph nodes, mesenteric. VASCULAR: Throughout the abdominal aorta wall and iliac arteries without aneurysm or dissection. Calcifications in the mitral valve. PELVIC VISCERA: No gross masses in the uterus or the adnexa. OSSEOUS STRUCTURES: Multilevel thoracolumbar spondylosis resulting in grade 1 anterolisthesis L4-5 and grade 1 retrolisthesis L3-4 and L1-[address]/CT abdomen pelvis w IV con IMPRESSION: Diverticular disease/diverticulosis. Probable cholelithiasis. Hepatomegaly, mild. Small fat-containing umbilical hernia. Multilevel thoracolumbar spondylosis. TODAY'S VISIT Patient was seen in the past for this by [facility] with no definitive diagnosis. [facility] Medical History (Updated 12/08/24 @ 16:55 by ARTEMIO Grace) Osteoarthritis of CMC joint of thumb Surgical History (Updated 12/08/24 @ 16:55 by ARTEMIO Grace) H/O hand surgery H/O colonoscopy History of esophagogastroduodenoscopy (EGD) S/P arthroscopic knee surgery S/P rotator cuff repair S/P endometrial ablation S/P excision of lipoma H/O section Family History Maternal Uncle Colon cancer Mother Breast cancer Maternal Uncle Colon cancer Maternal Aunt Ovarian cancer Maternal Aunt Colon cancer Social History Alcohol intake: current Alcohol type: hard liquor Review of Systems Const Denies fatigue, Denies fever(s), Denies night sweats, Denies poor appetite and Denies weight loss Eyes Details: glasses Reports requires corrective lenses ENT Reports Normal hearing present, Denies dental pain, Denies dysphagia, Denies hearing loss, Denies mouth pain, Denies odynophagia, Denies throat swelling, Denies tongue swelling and Reports other (Dentition adequate) Card Reports no additional complaints Resp Reports no additional complaints GI Details: Denies abdominal pain, Denies melena, Reports bloating, Denies hematochezia, Denies constipation, Denies GI cramping, Denies dysphagia, Denies excessive flatus, Denies early satiety, Reports dyspepsia, Denies heartburn, Denies diarrhea, Reports nausea, Denies odynophagia, Reports vomiting and Denies hematemesis Musc Reports back pain, Reports myalgias, Reports arthralgias and Reports stiffness Skin/Breast Denies pruritus, Denies lesions, Denies rash and Denies jaundice Neuro Reports Normal hearing present and Denies Abnormal speech present Endo Denies fatigue Aller/Immun Denies throat swelling and Denies tongue swelling Physical Exam Const General: cooperative, no acute distress, well developed and well groomed Nutritional Appearance: well nourished and obese morbidly obese Orientation/consciousness: oriented to person, oriented to place and oriented to time Limitations: No language barrier HEENT Head: Yes normocephalic and Yes atraumatic Eyes General: appearance normal, both eyes and all related structures Pupils: Equal, round and reactive pupils present Neck Neck: Yes normal visual inspection and Yes no lymphadenopathy Thyroid: Thyroid normal Resp Effort & Inspection: normal respiratory effort and able to speak in complete sentences Auscultation: clear to auscultation bilaterally Cardio Rate: regular rate Rhythm: regular rhythm Heart sounds: Normal, physiologic split S2 sound present Peripheral pulses: radial pulses present and posterior tibial pulses present GI Other: Rectus abdominis noted Inspection: No distended, Yes Abdominal panniculus present and Yes obesity Palpation (GI): Soft to palpation, nontender, no guarding, not rigid and No hepatosplenomegaly present Percussion: Yes normal to percussion Auscultation: normal bowel sounds Rectal Exam - Female: deferred Abdomen image:  1. Surgical scars Skin General skin exam: no rashes or lesions noted, turgor normal, skin not dry, no jaundice, No spider nevi and no striae Rashes: no rashes Nails: normal Neuro General: oriented to person, oriented to place and oriented to time Cranial nerves: Yes Equal, round and reactive pupils present and Yes Normal hearing present Speech: No Abnormal speech present Extrem General: Yes normal to inspection, No clubbing, No cyanosis and No edema Psych Appearance: grossly normal and well kempt Mental Status: mental status grossly normal Speech and movement: Normal speech and movement present Affect: normal affect Attitude: cooperative Thought process: Normal thought process present and not confabulating Thought content: Normal thought content present Insight: Good insight present (Psych) Judgement: Good judgement present (Psych) Results Reviewed Results Reviewed: Laboratory Tests 10/07/24 06:52 WBC 7.8 Hgb 12.3 D Hct 35.6 L MCV 85.8 MCH 29.6 Plt Count 291 Estimated GFR > 60 Random Glucose 157 H Total Bilirubin 0.6 AST 19 ALT [address] ABDOMEN AND PELVIS 05/01/2024 FINDINGS: LUNG BASES: No acute airspace disease or gross pulmonary nodules. LIVER, GALLBLADDER, AND BILIARY TREE: Liver measures 17 cm with decreased enhancement pattern. No focal mass. Portal veins, hepatic veins and intrahepatic portion of the IVC are patent. No intrahepatic biliary ductal dilatation. Probable tiny cholelithiasis. No pericholecystic fluid collection or gallbladder wall thickening. Common bile duct measures 4 mm. PANCREAS: No focal mass. No peripancreatic fluid collection. No main pancreatic ductal dilatation. SPLEEN: 9 cm. No focal lesion. ADRENAL GLANDS: No nodular lesions. KIDNEYS AND URETERS: No gross renal mass. No hydronephrosis. No gross nephrolithiasis. BLADDER: Fluid-filled. GASTROINTESTINAL TRACT: There are numerous diverticula throughout the large intestine. Abundant stool. No intestinal obstruction pattern. Gas and fluid-filled nondistended small bowel loops. No gross wall thickening. Appendix is normal. Terminal ileum is normal. No ascites. No pneumoperitoneum. No pneumatosis intestinalis. No peripheral enhancing fluid collections, peritoneal cavity. ABDOMINAL WALL: Small fat-containing umbilical hernia. LYMPH NODES: Nonspecific mildly prominent lymph nodes, mesenteric. VASCULAR: Throughout the abdominal aorta wall and iliac arteries without aneurysm or dissection. Calcifications in the mitral valve. PELVIC VISCERA: No gross masses in the uterus or the adnexa. OSSEOUS STRUCTURES: Multilevel thoracolumbar spondylosis resulting in grade 1 anterolisthesis L4-5 and grade 1 retrolisthesis L3-4 and L1-[address]/CT abdomen pelvis w IV con IMPRESSION: Diverticular disease/diverticulosis. Probable cholelithiasis. Hepatomegaly, mild. Small fat-containing umbilical hernia. Multilevel thoracolumbar spondylosis. Assessment & Plan Assessment & Plan (1) Nausea and vomiting: Code(s): R11.2 - Nausea with vomiting, unspecified Category: Medical (2) Diastasis of rectus abdominis: Code(s): M62.08 - Separation of muscle (nontraumatic), other site Category: Medical (3) Abdominal pain: Code(s): R10.9 - Unspecified abdominal pain Category: Medical (4) Glucosuria: Code(s): R81 - Glycosuria Category: Medical (5) Elevated fasting glucose: Code(s): R73.01 - Impaired fasting glucose Category: Medical (6) Joint pain: Code(s): M25.50 - Pain in unspecified joint Category: Medical Plan - The patient is a 64-year-old female (works on [employer] and [employer]) presenting with chronic gastrointestinal disturbances, chiefly intermittent irritractable vomiting. - Symptoms originated in December 2021, initially thought to be flu related, and have progressed to frequent vomiting episodes lasting days. - Vomiting is associated with nausea and distressing abdominal discomfort, absent sharp pain but pervasive discomfort. - Periods of symptoms have disrupted electrolytes, leading to hypokalemia on two occasions severe enough to consider hospitalization. It does not appear that she ever had hyponatremia. - Symptomatology includes temperature dysregulation, excessive sweating, and chills. - Bowel habits have shifted recently, now experiencing cycles of diarrhea and constipation, with more recent episodes of constipation. - Previously performed CT imaging identified tiny gallstones. Endoscopy revealed polyps without significant pathological findings. - Previous physicians have suggested autoimmune contributors; however, diagnostic confirmations are pending. - Current therapy includes anti-emetics, though vomiting episodes often outpace medication effectiveness. 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 - Does not regularly use marijuana but may occasionally consume edible chocolate, noting it is not a frequent practice. - Mother with history of postmenopausal breast cancer twice. - Sister with a history of postmenopausal breast cancer. - Maternal grandfather and uncle with colorectal cancer. - Maternal aunt had colorectal cancer, another maternal aunt with ovarian cancer. - Daughter with shellfish allergy. - Musculoskeletal: Reports joint pain and arthritis. - Integumentary: Reports occasional rash on forehead. I can not say that I immediately know what could be causing her symptoms. I did note what appears to be profound glucosuria on 1 of her ER urinalysis, but the patient denies being diabetic. This seems quite odd to me since she also has never been on a GLP 1 medications. I do not know whether this is a real finding or perhaps a mistake in the chart. Nevertheless I think I should do a basic diabetes workup to try to define this. Clearly I want to get the notes from [facility] so that I can see what her endoscopy and colonoscopy showed. In the meantime I think a gastric emptying study and a HIDA scan would be appropriate especially since there were tiny gallstones discovered on prior CAT scan. I also going to do a basic rheumatologic survey since somebody mentioned to her that they think her symptoms might be autoimmune mediated. Obviously the differential diagnosis is quite wide and could include metabolic disruptions, gastroparesis, biliary dyskinesia, atypical migraines among many. For now I am not going to provide any new medical interventions until I have more information. I also incidentally note an area that seem to be hard in the upper abdomen but when I laid the patient down and did a more thorough physical it was simply a manifestation of rectus abdominis. Return office visit in 4 weeks Orders: Orders ROSS Reflex Titer and Pattern Today M25.50 - Pain in unspecified joint, R11.2 - Nausea with vomiting, unspecified, R73.01 - Impaired fasting glucose, R81 - Glycosuria C Reactive Protein Today M25.50 - Pain in unspecified joint, R11.2 - Nausea with vomiting, unspecified, R73.01 - Impaired fasting glucose, R81 - Glycosuria Hemoglobin A1c Today M25.50 - Pain in unspecified joint, R11.2 - Nausea with vomiting, unspecified, R73.01 - Impaired fasting glucose, R81 - Glycosuria H Pylori Breath Test Today M25.50 - Pain in unspecified joint, R11.2 - Nausea with vomiting, unspecified, R73.01 - Impaired fasting glucose, R81 - Glycosuria Transglutaminase IgA Today M25.50 - Pain in unspecified joint, R11.2 - Nausea with vomiting, unspecified, R73.01 - Impaired fasting glucose, R81 - Glycosuria NM hepatobiliary w pharm Today M25.50 - Pain in unspecified joint, R11.2 - Nausea with vomiting, unspecified, R73.01 - Impaired fasting glucose, R81 - Glycosuria NM gastric emptying study Today M25.50 - Pain in unspecified joint, R11.2 - Nausea with vomiting, unspecified, R73.01 - Impaired fasting glucose, R81 - Glycosuria Erythrocyte Sedimentation Rate Today M25.50 - Pain in unspecified joint, R11.2 - Nausea with vomiting, unspecified, R73.01 - Impaired fasting glucose, R81 - Glycosuria UA CC w/rflx Micro + Cult Today M25.50 - Pain in unspecified joint, R11.2 - Nausea with vomiting, unspecified, R73.01 - Impaired fasting glucose, R81 - Glycosuria Transglutaminase Ab IgG Today M25.50 - Pain in unspecified joint, R11.2 - Nausea with vomiting, unspecified, R73.01 - Impaired fasting glucose, R81 - Glycosuria Rheumatoid Factor Today M25.50 - Pain in unspecified joint, R11.2 - Nausea with vomiting, unspecified, R73.01 - Impaired fasting glucose, R81 - Glycosuria Cyclic Citrullinated Peptide Today M25.50 - Pain in unspecified joint, R11.2 - Nausea with vomiting, unspecified, R73.01 - Impaired fasting glucose, R81 - Glycosuria Phospholipid Ab Panel Today M25.50 - Pain in unspecified joint, R11.2 - Nausea with vomiting, unspecified, R73.01 - Impaired fasting glucose, R81 - Glycosuria Coding Level of Care Code New Pt Level 3 (05724) Diagnoses Nausea and vomiting R11.2 Diastasis of rectus abdominis M62.08 Abdominal pain R10.9 Glucosuria R81 Elevated fasting glucose R73.01 Joint pain M25.50
--- OUTSIDE RECORDS SUMMARY | 2024-12-08 16:15 | XMS_ITS | Encounter Summary ---
Author Organization [facility] Address [address] [facility] [address] [place] [address] Phone Care Team Providers Care Senior Clinical Study Manager Name Role Phone Esme Claudio MD Unavailable [phone] Roseann Lopez Primary Care Provider [phone] Encounter Details Date Type Department Care Team (Latest Contact Info) Description 03/20/2024 Transcribe Orders Virtual Department [address] [place] [address] Remberto Fletcher MD [address] [facility] [address] [place] [address] [email or web address] Essential hypertension (Primary Dx) Social History Tobacco Use Types Packs/Day Years [...] documented as of this encounter Visit Diagnoses Diagnosis Essential hypertension- Primary Unspecified essential hypertension documented in this encounter Care Teams Senior Clinical Study Manager Relationship Specialty Start Date End Date Roseann Lopez PA [address] [place] [address] [address] [place] [address] [email or web address] PCP - General Unknown Provider Specialty 12/15/21 Esme Claudio MD [address] [place] [id number] [email or web address] Historical LMR Provider 12/24/16 documented as of this encounter Additional Source Comments The information contained in this document represents components of the legal health record. It is not the complete legal health record.[facility]
--- OUTSIDE RECORDS SUMMARY | 2024-12-08 16:15 | XMS_ITS | Encounter Summary ---
Author Organization [facility] Address [address] [place] [phone] Phone Care Team Providers Care Coke Crane Operator Name Role Phone Esme Claudio MD Unavailable [phone] Roseann Lopez Primary Care Provider [phone] Esme Claudio MD Unavailable [phone] Encounter Details Date Type Department Care Team (Late st Contact Info) Description 12/10/2022 Procedure [facility] [address] [place] [address] Social History Tobacco Use Types Packs/Day Years [...] on filedocumented in this encounter Care Teams Coke Crane Operator Relationship Specialty Start Date End Date Roseann Lopez PA [address] [place] [address] [address] [place] [address] [email or web address] PCP - General Unknown Provider Specialty 12/15/21 Esme Claudio MD [address] [place] [id number] [email or web address] Historical LMR Provider 12/24/16 Esme Claudio MD [address] [place] [id number] [email or web address] Insurance Assigned Provider 06/15/23 11/16/23 documented as of this encounter Additional Source Comments The information contained in this document represents components of the legal health record. It is not the complete legal health record.[facility]
--- OUTSIDE RECORDS SUMMARY | 2024-12-08 16:15 | XMS_ITS | Encounter Summary ---
Author Organization [facility], Address [address] [place] [address] Phone Care Team Providers Care Project Inspector Name Role Phone Austin Rios PA-C Primary Care Provider [phone] Encounter Details Date Type Department Care Team (Late st Contact Info) Description 06/23/2024 Documentation Only [facility] [address] [place] [address] Lisbeth Avilez [address] [place] [phone] Social History Tobacco Use Types Packs/Day [...] [facility] Janis MILES [address] [place] [phone] Remberto Fletcher MD [address] [place] [address] [place] [phone] documented as of this encounter Visit Diagnoses Not on filedocumented in this encounter Care Teams Project Inspector Relationship Specialty Start Date End Date Austin Rios PA-C [address] [place] [address] PCP - General Physician Rum Processing Operator 02/27/24 documented as of this encounter
--- OUTSIDE RECORDS SUMMARY | 2024-12-08 16:15 | XMS_ITS | Encounter Summary ---
Author Organization [facility] Address [address] [place] [address] Phone Care Team Providers Care House Painter Name Role Phone Esme Claudio MD Unavailable Esme Claudio MD Primary Care Provider + Cullen Corrigan MD Unavailable Roseann Lopez Primary Care Provider Cullen Corrigan MD Unavailable [phone] Esme Claudio MD Unavailable Encounter Details Date Type Department Care Team (Late st Contact Info) Description 05/11/2021 Transcribe Orders Virtual Department [address] [place] [address] Esme Claudio MD [address] [place] [phone] Breast screening (Primary Dx) Social History Tobacco Use Types Packs/Day Years Used Date Smoking Tobacco: Never Assessed Comments No Sex and Gender Information Value Date Recorded Sex Assigned at Female 09/10/2017 4:45 PM EDT Legal Sex Female 9:44 PM EDT Gender Identity Female 09/10/2017 4:45 PM EDT Sexual Orientation Not on file documented as of this encounter Plan of Treatment Not on file documented as of this encounter Results * BI MAMMOGRAM SCREENING WITH TOMOSYNTHESIS WITH CAD (BILATERAL) (08/16/2021 11:01 AM EDT) Anatomical Region Laterality Modality Breast Left, Breast Right, Breast Bilateral Bila teral Mammography 08/16/2021 5:47 PM EDT Impressions 08/16/2021 5:53 PM EDT No mammographic signs of malignancy. Annual screening is recommended. BI-RADS CATEGORY: 2 - Benign finding. DENSITY: There are scattered fibroglandular densities. Narrative 08/16/2021 5:53 PM EDT Bilateral mammography is performed in conjunction with computed aided detection. 3-D tomography along with 2-D C view imaging was also performed. Comparison made to previous dated as far back as and as recent as . No suspicious masses, areas of architectural distortion or suspicious microcalcifications. A 3 mm mass in the central left breast is stable. Procedure Note Reji Delgadillo MD - 08/16/2021 Bilateral mammography is performed in conjunction with computed aideddetection. 3-D tomography along with 2-D C view imaging was alsoperformed. Comparison made to previous dated as far back as and as recentas . No suspicious masses, areas of architectural distortion or suspiciousmicrocalcifications. A 3 mm mass in the central left breast is stable. IMPRESSION: No mammographic signs of malignancy. Annual screening is recommended. BI-RADS CATEGORY: 2 - Benign finding. DENSITY: There are scattered fibroglandular densities. us Esme Claudio MD IMG MG EXAMS Final Re sult documented in this encounter Visit Diagnoses Diagnosis Breast screening- Primary Breast screening, unspecified Breast screening Breast screening, unspecified documented in this encounter Care Teams House Painter Relationship Specialty Start Date End Date Esme Claudio MD [address] [place] [phone] PCP - General Family Medicine 02/08/17 12/14/21 Roseann Lopez PA [address] [place] [address] [address] [place] [address] [email or web address] PCP - General Unknown Provider Specialty 12/15/21 Esme Claudio MD [address] [place] [phone] [email or web address] Historical LMR Provider 12/24/16 Cullen Corrigan MD [address] [place] [phone] Insurance Assigned Provider 10/15/20 06/17/21 Cullen Corrigan MD [address] [place] [phone] Insurance Assigned Provider 07/14/22 09/15/22 Esme Claudio MD [address] [place] [phone] Insurance Assigned Provider 06/15/23 11/16/23 documented as of this encounter Additional Source Comments The information contained in this document represents components of the legal health record. It is not the complete legal health record.[facility]
--- OUTSIDE RECORDS SUMMARY | 2024-12-08 16:15 | XMS_ITS | Encounter Summary ---
Author Organization [facility] Address [address] [place] [address] Phone Care Team Providers Care Family Resource Management Professor Name Role Phone Esme Claudio MD Unavailable [phone] Roseann Lopez Primary Care Provider [phone] Esme Claudio MD Unavailable [phone] Encounter Details Date Type Department Care Team (Late st Contact Info) Description 12/14/2022 Procedure Pass [facility] - [address] [place] [address] Social History Tobacco Use Types Packs/Day Years Used Date Smoking Tobacco: Never Assessed Education Answer Date Recorded Are you interested [...] on filedocumented in this encounter Care Teams Family Resource Management Professor Relationship Specialty Start Date End Date Roseann Lopez PA [address] [place] [address] [address] [place] [address] [email or web address] PCP - General Unknown Provider Specialty 12/15/21 Esme Claudio MD [address] [place] [address] [email or web address] Historical LMR Provider 12/24/16 Esme Claudio MD [address] [place] [address] [email or web address] Insurance Assigned Provider 06/15/23 11/16/23 documented as of this encounter Additional Source Comments The information contained in this document represents components of the legal health record. It is not the complete legal health record.[facility]
--- OUTSIDE RECORDS SUMMARY | 2024-12-08 16:15 | XMS_ITS | Encounter Summary ---
Author Organization [facility] Address [address] [place] [address] Phone Care Team Providers Care Main Entree Cook And Cashier Name Role Phone Esme Claudio MD Unavailable [phone] Roseann Lopez Primary Care Provider Esme Claudio MD Unavailable Encounter Details Date Type Department Care Team (Late st Contact Info) Description 01/14/2023 Transcribe Orders Virtual Department [address] [place] [address] Roseann Lopez PA [address] [place] [address] [email or web address] Acute renal failure, unspecified acute renal failure type (Primary Dx); Generalized abdominal pain; Vomiting, unspecified vomiting type, unspecified whether nausea present Social History Tobacco Use Types Packs/Day Years [...] as of this encounter Visit Diagnoses Diagnosis Acute renal failure, unspecified acute renal failure type- Primary Generalized abdominal pain Abdominal pain, generalized Vomiting, unspecified vomiting type, unspecified whether nausea present documented in this encounter Care Teams Main Entree Cook And Cashier Relationship Specialty Start Date End Date Roseann Lopez PA [address] [place] [address] [address] [place] [address] [email or web address] PCP - General Unknown Provider Specialty 12/15/21 Esme Claudio MD [address] [place] [address] Historical LMR Provider 12/24/16 Esme Claudio MD [address] [place] [address] Insurance Assigned Provider 06/15/23 11/16/23 documented as of this encounter Additional Source Comments The information contained in this document represents components of the legal health record. It is not the complete legal health record.[facility]
--- OUTSIDE RECORDS SUMMARY | 2024-12-08 16:15 | XMS_ITS | Encounter Summary ---
Author Organization [facility], Address [address] [place] [address] Phone Care Team Providers Care Non Clinical Advisor Name Role Phone [place] Rios PA-C Primary Care Provider [phone] Encounter Details Date Type Department Care Team (Late st Contact Info) Description 06/07/2022 Documentation Only [facility] [address] [place] [address] Roseann [place] [phone] Social History Tobacco Use Types Packs/Day Years [...] Visit [facility] [address] [place] [phone] Remberto Fletcher MD [address] [place] [address] documented as of this encounter Visit Diagnoses Not on filedocumented in this encounter Care Teams Non Clinical Advisor Relationship Specialty Start Date End Date [place] Rios PA-C [address] [place] [address] PCP - General Physician Transcript Evaluator 02/27/24 documented as of this encounter
--- OUTSIDE RECORDS SUMMARY | 2024-12-08 16:15 | XMS_ITS | Encounter Summary ---
Author Organization [facility], Address [address] [place] [address] Phone Care Team Providers Care Cook'S Assistant Name Role Phone [place] Rios PA-C Primary Care Provider [phone] Encounter Details Date Type Department Care Team (Late st Contact Info) Description 06/04/2022 Documentation Only [facility] [address] [place] [address] Roseann Lopez PA-C [address] [place] [phone] Social History Tobacco Use Types Packs/Day Years [...] Visit [facility] Jan[address] [place] [address] Remberto Fletcher MD [address] [place] [phone] documented as of this encounter Visit Diagnoses Not on filedocumented in this encounter Care Teams Cook'S Assistant Relationship Specialty Start Date End Date [place] Rios PA-C [address] [place] [address] PCP - General Physician Broadcasting Equipment Mechanic 02/27/24 documented as of this encounter
--- OUTSIDE RECORDS SUMMARY | 2024-12-08 16:15 | XMS_ITS | Encounter Summary ---
Author Organization [facility] Address [address] [place] [address] Phone Care Team Providers Care Small Parts Shaper Operator Name Role Phone Esme Claudio MD Unavailable [phone] Esme Claudio MD Primary Care Provider + Cullen Corrigan MD Unavailable Roseann Lopez Primary Care Provider Cullen Corrigan MD Unavailable Esme Claudio MD Unavailable [phone] Encounter Details Date Type Department Care Team (Late st Contact Info) Description 05/11/2021 Procedure Pass [facility] - [address] [place] [address] Social History Tobacco Use Types Packs/Day Years [...] on filedocumented in this encounter Care Teams Small Parts Shaper Operator Relationship Specialty Start Date End Date Esme Claudio MD [address] [place] [address] [place] [address] PCP - General Family Medicine 02/08/17 12/14/21 Roseann Lopez PA [address] [place] [address] [email or web address] PCP - General Unknown Provider Specialty 12/15/21 Esme Claudio MD [address] [place] [address] Historical LMR Provider 12/24/16 Cullen Corrigan MD [address] [place] [address] Insurance Assigned Provider 10/15/20 06/17/21 Cullen Corrigan MD [address] [place] [address] Insurance Assigned Provider 07/14/22 09/15/22 Esme Claudio MD [address] [place] [address] Insurance Assigned Provider 06/15/23 11/16/23 documented as of this encounter Additional Source Comments The information contained in this document represents components of the legal health record. It is not the complete legal health record.[facility]
--- OUTSIDE RECORDS SUMMARY | 2024-12-08 16:15 | XMS_ITS | Encounter Summary ---
Author Organization [facility] Address [address] [place] [address] Phone Care Team Providers Care Character Impersonator Name Role Phone Tiffanie Crow MD Unavailable Destin Freed MD Unavailable Alisia Velasquez MD Unavailable Presley Bhandari MD Unavailable Ana Lilia Mclain-C Unavailable Esme Claudio MD Unavailable Neeraj Win MD Unavailable Esme Aaron MD Unavailable [phone] Jose Carlos Katz MD Unavailable Esme Claudio MD Primary Care Provider + Esme Claudio MD Unavailable Cullen Corrigan MD Unavailable Roseann Lopez Primary Care Provider [phone] Cullen Corrigan MD Unavailable Esme Claudio MD Unavailable [phone] Encounter Details Date Type Department Care Team (Late st Contact Info) Description 06/22/2020 Procedure Pass [facility] - [address] [place] [address] Social History Tobacco Use Types Packs/Day Years [...] on filedocumented in this encounter Care Teams Character Impersonator Relationship Specialty Start Date End Date Esme Claudio MD [address] [place] [address] [email or web address] PCP - General Family Medicine 02/08/17 12/14/21 Roseann Lopez PA [address] [place] [address] [address] [place] [address] [email or web address] PCP - General Unknown Provider Specialty 12/15/21 Tiffanie Crow MD [address] [facility] 3 [place] [address] Historical LMR Provider 12/24/16 2 Destin Freed MD [address] [place] [address] [email or web address] Historical LMR Provider 12/24/16 03/18/21 Alisia Velasquez MD [address] [facility], 2nd [place] [address] [email or web address] Historical LMR Provider 12/24/16 Presley Bhandari MD [address] [place] [address] Historical LMR Provider 12/24/16 Ana Lilia Mclain PA-C [address] [place] [address] Orthopedics & Sports [facility] [place] [address] Historical LMR Provider 12/24/16 03/18/21 Esme Claudio MD [address] [place] [address] Historical LMR Provider 12/24/16 Neeraj Win MD [address] [place] [address] Historical LMR Provider 12/24/16 03/18/21 Esme Aaron MD [address] [place] [address] Historical LMR Provider 12/24/16 2 Jose Carlos Katz MD [address] [place] [address] Orthopedics Sports [facility], [place] [address] Historical LMR Provider 12/24/16 2 Esme Claudio MD [address] [place] [address] Insurance Assigned Provider 07/12/18 10/15/20 Cullen Corrigan MD [address] [place] [address] Insurance Assigned Provider 10/15/20 06/17/21 Cullen Corrigan MD [address] [place] [address] [email or web address] Insurance Assigned Provider 07/14/22 09/15/22 Esme Claudio MD [address] [place] [address] [email or web address] Insurance Assigned Provider 06/15/23 11/16/23 documented as of this encounter Additional Source Comments The information contained in this document represents components of the legal health record. It is not the complete legal health record.[facility]
--- OUTSIDE RECORDS SUMMARY | 2024-12-08 16:15 | XMS_ITS | Encounter Summary ---
Author Organization [facility] Address [address] [place] [address] Phone Care Team Providers Care Global Compensation Analyst Name Role Phone Tiffanie Crow MD Unavailable Destin Freed MD Unavailable Alisia Velasquez MD Unavailable Presley Bhandari MD Unavailable Ana Lilia Mclain-C Unavailable Esme Claudio MD Unavailable Neeraj Win MD Unavailable Esme Aaron MD Unavailable [phone] Jose Carlos Katz MD Unavailable Esme Claudio MD Primary Care Provider + Esme Claudio MD Unavailable Cullen Corrigan MD Unavailable Roseann Lopez Primary Care Provider [phone] Cullen Corrigan MD Unavailable Esme Claudio MD Unavailable [phone] Encounter Details Date Type Department Care Team (Late st Contact Info) Description 06/22/2020 Transcribe Orders Virtual Department 30 [place], [place] [phone] Esme Claudio MD [address] [place] [address] [email or web address] Breast screening (Primary Dx) Social History Tobacco [...] MAMMOGRAM SCREENING WITH TOMOSYNTHESIS WITH CAD (BILATERAL) (07/04/2020 8:54 AM EDT) Anatomical Region Laterality Modality Breast Left, Breast Right, Breast Bilateral Bila teral Mammography 07/11/2020 12:5 9 PM EDT Impressions 07/11/2020 1:02 PM EDT No mammographic signs of malignancy. Annual screening is recommended. BI-RADS CATEGORY: 1 - Negative. DENSITY: There are scattered fibroglandular densities. Narrative 07/11/2020 1:02 PM EDT Bilateral mammography is performed in conjunction with computed aided detection. 3-D tomography along with 2-D C view imaging was also performed. Comparison made to previous dated as far back as 08/30/2009 and as recent as 11/16/2016. No suspicious masses, areas of architectural distortion or suspicious microcalcifications. Procedure Note Reji Delgadillo MD - 07/11/2020 Bilateral mammography is performed in conjunction with computed aideddetection. 3-D tomography along with 2-D C view imaging was alsoperformed. Comparison made to previous dated as far back as 08/30/2009 andas recent as 11/16/2016. No suspicious masses, areas of architectural distortion or suspiciousmicrocalcifications. IMPRESSION: No mammographic signs of malignancy. Annual screening is recommended. BI-RADS CATEGORY: 1 - Negative. DENSITY: There are scattered fibroglandular densities. us Esme Claudio MD IMG MG EXAMS Final Re sult documented in this encounter Visit Diagnoses Diagnosis Breast screening- Primary Breast screening, unspecified Breast screening Breast screening, unspecified documented in this encounter Care Teams Global Compensation Analyst Relationship Specialty Start Date End Date Esme Claudio MD [address] [place] [address] [email or web address] PCP - General Family Medicine 02/08/17 12/14/21 Roseann Lopez PA [address] [place] [address] [address] [place] [address] [email or web address] PCP - General Unknown Provider Specialty 12/15/21 Tiffanie Crow MD [address] [place] [address] 3 [place] [address] Historical LMR Provider 12/24/16 2 Destin Freed MD [address] [place] [address] [email or web address] Historical LMR Provider 12/24/16 03/18/21 Alisia Velasquez MD [address] [facility], 2nd [place] [address] [email or web address] Historical LMR Provider 12/24/16 Presley Bhandari MD [address] [place] [address] Historical LMR Provider 12/24/16 Ana Lilia Mclain PA-C [address] [place], [place] [address]s & Sports [facility] [place] [address] Historical LMR Provider 12/24/16 03/18/21 Esme Claudio MD [address] [place] [address] Historical LMR Provider 12/24/16 Neeraj Win MD [address] [place] [address] [email or web address] Historical LMR Provider 12/24/16 03/18/21 Esme Aaron MD [address] [place] [phone] Historical LMR Provider 12/24/16 2 Jose Carlos Katz MD [address] [place] [address] Orthopedics & Sports [facility], [place] [address] [email or web address] Historical LMR Provider 12/24/16 2 Esme Claudio MD [address] [place] [address] Insurance Assigned Provider 07/12/18 10/15/20 Cullen Corrigan MD [address] [place] [address] Insurance Assigned Provider 10/15/20 06/17/21 Cullen Corrigan MD [address] [place] [address] [email or web address] Insurance Assigned Provider 07/14/22 09/15/22 Esme Claudio MD 17 [place] [address] [email or web address] Insurance Assigned Provider 06/15/23 11/16/23 documented as of this encounter Additional Source Comments The information contained in this document represents components of the legal health record. It is not the complete legal health record.[facility]
--- OUTSIDE RECORDS SUMMARY | 2024-12-08 16:15 | XMS_ITS | Encounter Summary ---
Author Organization [facility] Address [address] [place] [address] Phone Care Team Providers Care Paint Roller Assembler Name Role Phone Tiffanie Crow MD Unavailable Destin Freed MD Unavailable Alisia Velasquez MD Unavailable Presley Bhandari MD Unavailable Ana Lilia Mclain-C Unavailable Esme Claudio MD Unavailable Neeraj Win MD Unavailable Esme Aaron MD Unavailable [phone] Jose Carlos Katz MD Unavailable Esme Claudio MD Primary Care Provider + Esme Claudio MD Unavailable Cullen Corrigan MD Unavailable Roseann Lopez Primary Care Provider [phone] Cullen Corrigan MD Unavailable Esme Claudio MD Unavailable [phone] Encounter Details Date Type Department Care Team (Late st Contact Info) Description 07/04/2020 Ancillary Orders [facility],Outside Imaging [address] [place], [place] [phone] System, Provider [place] In, [place] [address] Social History Tobacco Use Types Packs/Day Years [...] documented as of this encounter Results * Mammogram Outside (No Interpretation) (11/16/2016 12:00 AM EDT) Narrative SYSTEMGENERATED, DOCUMENTATION - 07/04/2020 5:03 PM EDT This study is for PACS storage only and not for interpretation. us Provider Not In System PhD IMG OUTSIDE IMAGING W /OUT INTERPRETATION Final Result * Mammogram Outside (No Interpretation) (11/13/2012 12:00 AM EDT) Narrative SYSTEMGENERATED, DOCUMENTATION - 07/04/2020 5:04 PM EDT This study is for PACS storage only and not for interpretation. us Provider Not In System PhD IMG OUTSIDE IMAGING W /OUT INTERPRETATION Final Result * Mammogram Outside (No Interpretation) (09/20/2011 12:00 AM EDT) Narrative SYSTEMGENERATED, DOCUMENTATION - 07/04/2020 5:03 PM EDT This study is for PACS storage only and not for interpretation. us Provider Not In System PhD IMG OUTSIDE IMAGING W /OUT INTERPRETATION Final Result * Mammogram Outside (No Interpretation) (09/04/2010 12:00 AM EDT) Narrative SYSTEMGENERATED, DOCUMENTATION - 07/04/2020 5:05 PM EDT This study is for PACS storage only and not for interpretation. us Provider Not In System PhD IMG OUTSIDE IMAGING W /OUT INTERPRETATION Final Result * US Breast Outside (No Interpretation) (09/01/2009 12:00 AM EDT) Narrative SYSTEMGENERATED, DOCUMENTATION - 07/04/2020 5:04 PM EDT This study is for PACS storage only and not for interpretation. us Provider Not In System PhD IMG OUTSIDE IMAGING W /OUT INTERPRETATION Final Result * Mammogram Outside (No Interpretation) (08/30/2009 12:00 AM EDT) Narrative SYSTEMGENERATED, DOCUMENTATION - 07/04/2020 5:05 PM EDT This study is for PACS storage only and not for interpretation. us Provider Not In System PhD IMG OUTSIDE IMAGING W /OUT INTERPRETATION Final Result documented in this encounter Visit Diagnoses Not on filedocumented in this encounter Care Teams Paint Roller Assembler Relationship Specialty Start Date End Date Esme Claudio MD [address] [place] [address] [email or web address] PCP - General Family Medicine 02/08/17 12/14/21 Roseann Lopez PA [address] [place] [address] [address] [place] [address] [email or web address] PCP - General Unknown Provider Specialty 12/15/21 Tiffanie Crow MD [address] [place] [address] 3 [place] [address] Historical LMR Provider 12/24/16 2 Destin Freed MD [address] [place] [address] [email or web address] Historical LMR Provider 12/24/16 03/18/21 Alisia Velasquez MD [address] [place] [address], [address] [place] [address] Historical LMR Provider 12/24/16 Presley Bhandari MD [address] [place] [address] Historical LMR Provider 12/24/16 Ana Lilia Mclain PA-C [address] [place] [address] Orthopedics & Sports [facility], [place] [address] Historical LMR Provider 12/24/16 03/18/21 Esme Claudio MD [address] [place] [address] Historical LMR Provider 12/24/16 Neeraj Win MD 22 [facility], [address] [address] Historical LMR Provider 12/24/16 03/18/21 Esme Aaron MD [address] [place] [address] Historical LMR Provider 12/24/16 2 Jose Carlos Katz MD [address] [place] [address] Orthopedics Sports [facility], [place] [address] Historical LMR Provider 12/24/16 2 Esme Claudio MD [address] [place] [address] [email or web address] Insurance Assigned Provider 07/12/18 10/15/20 Cullen Corrigan MD [address] [place] [address] [email or web address] Insurance Assigned Provider 10/15/20 06/17/21 Cullen Corrigan MD [address] [place] [address] [email or web address] Insurance Assigned Provider 07/14/22 09/15/22 Esme Claudio MD [address] [place] [address] [email or web address] Insurance Assigned Provider 06/15/23 11/16/23 documented as of this encounter Additional Source Comments The information contained in this document represents components of the legal health record. It is not the complete legal health record.[facility]
--- OUTSIDE RECORDS SUMMARY | 2024-12-08 16:15 | XMS_ITS | Encounter Summary ---
Author Organization [facility] [place], Address [address] [place] [address] Phone Care Team Providers Care Fruit Sprayer Name Role Phone [place] Rios PA-C Primary Care Provider [phone] Encounter Details Date Type Department Care Team (Late st Contact Info) Description 04/06/2024 Documentation Only [facility] [address] [place] [address] Lisbeth Avilez [address] [place] [phone] Social History Tobacco Use Types Packs/Day [...] [facility] MILES [address] [place] [phone] Remberto Fletcher MD [address] [place] [address] [place] [phone] documented as of this encounter Visit Diagnoses Not on filedocumented in this encounter Care Teams Fruit Sprayer Relationship Specialty Start Date End Date [place] Rios PA-C [address] [place] [address] PCP - General Physician Mirror Machine Feeder 02/27/24 documented as of this encounter
--- OUTSIDE RECORDS SUMMARY | 2024-12-08 16:15 | XMS_ITS | Encounter Summary ---
Author Organization [facility] [place], Address [address] [place] [address] Phone Care Team Providers Care Campus Recruiting Intern Name Role Phone [place] Rios PA-C Primary Care Provider [phone] Encounter Details Date Type Department Care Team (Late st Contact Info) Description 01/15/2024 Documentation Only [facility], [address] [place] [place] [address] [place] [address] [place] [phone] Social History Tobacco Use Types Packs/Day [...] Visit [facility] MILES [address] [place] [phone] Remberto Fletcher MD [address] [place] [address] [place] [phone] documented as of this encounter Visit Diagnoses Not on filedocumented in this encounter Care Teams Campus Recruiting Intern Relationship Specialty Start Date End Date [place] Rios PA-C [address] [place] [address] PCP - General Physician Food Technician 02/27/24 documented as of this encounter
--- OUTSIDE RECORDS SUMMARY | 2024-12-08 16:16 | XMS_ITS | Encounter Summary ---
Author Organization [facility] Address [address] [place] [address] Phone Care Team Providers Care Artillery Specialist Name Role Phone Esme Claudio MD Unavailable Roseann Lopez Primary Care Provider [phone] Esme Claudio MD Unavailable Encounter Details Date Type Department Care Team (Late st Contact Info) Description 12/14/2022 Transcribe Orders [facility] [address] [place] [address] Roseann Lopez PA [address] [place] [address] [email or web address] Stomach ache; Elevated C-reactive protein (CRP); Low phosphate levels Social History Tobacco Use Types Packs/Day Years [...] Procedure Name Priority Date/Time Associated Diagnosis Comments SEDIMENTATION RATE (ESR) Routine 12/14/2022 10:56 AM EDT Stomach ache Elevated C-reactive protein (CRP) C-REACTIVE PROTEIN Routine 12/14/2022 10 :56 AM EDT Stomach ache Elevated C-reactive protein (CRP) ANTINUCLEAR ANTIBODY (ROSS) Routine 12/14/2022 10:56 AM EDT Stomach ache Elevated C-reactive protein (CRP) PHOSPHORUS Routine 12/14/2022 10:56 AM EDT Low phosphate levels PARATHYROID HORMONE (PTH) Routine 12/14/2022 10:56 AM EDT Low phosphate levels FERRITIN Routine 12/14/2022 10:56 AM EDT Stomach ache Elevated C-reactive protein (CRP) documented in this encounter Results * Phosphorus (12/14/2022 10:56 AM EDT) PHOSPHORUS 3.3 2.7 - 4.5 mg/dL [facility] Blood 12/14/2022 10:5 6 AM EDT 12/14/2022 10:59 AM EDT us Concha BERMAN LAB BLOOD ORDERABLES Final Result [facility] [address] [place] [address] * Parathyroid hormone (PTH) (12/14/2022 10:56 AM EDT) PARATHYROID HORMONE 34 15 - 65 pg/mL [facility] Blood 12/14/2022 10:5 6 AM EDT 12/14/2022 11:00 AM EDT us Concha BERMAN LAB BLOOD ORDERABLES Final Result Performing Organization Address [facility]/ZIP Co de Phone Number [address] [address] * (ABNORMAL) C-Reactive Protein (12/14/2022 10:56 AM EDT) C REACTIVE PROTEIN 15.8(H) 0.0 - 4.0 mg/L [facility] Blood 12/14/2022 10:5 6 AM EDT 12/14/2022 10:59 AM EDT us Roseann BERMAN LAB BLOOD ORDERABLES Final Result Performing Organization Address [facility]/ZIP Co de Phone Number [address] [address] * Antinuclear antibody (ROSS) (12/14/2022 10:56 AM EDT) ROSS SCREEN ON HEP 2 Negative Negative [facility] Blood 12/14/2022 10:5 6 AM EDT 12/14/2022 10:59 AM EDT us Roseann BERMAN LAB BLOOD ORDERABLES Final Result Performing Organization Address [facility] Co de Phone Number [address] [address] * Sedimentation rate (ESR) (12/14/2022 10:56 AM EDT) ESR 16 0 - 30 mm/h [facility] Blood 12/14/2022 10:5 6 AM EDT 12/14/2022 10:59 AM EDT Roseann BERMAN LAB BLOOD ORDERABLES Final Result Performing Organization Address [facility]/ZIP Co de Phone Number [address] [address] * (ABNORMAL) Ferritin (12/14/2022 10:56 AM EDT) FERRITIN 196(H) 13 - 150 ug/L [facility] Blood 12/14/2022 10:5 6 AM EDT 12/14/2022 10:59 AM EDT Roseann BERMAN LAB BLOOD ORDERABLES Final Result [facility] [address] [place] [address] documented in this encounter Visit Diagnoses Diagnosis Stomach ache Dyspepsia and other specified disorders of function of stomach Elevated C-reactive protein (CRP) Low phosphate levels Disorders of phosphorus metabolism documented in this encounter Care Teams Artillery Specialist Relationship Specialty Start Date End Date Roseann Lopez PA [address] [place] [address] [address] [place] [address] [email or web address] PCP - General Unknown Provider Specialty 12/15/21 Esme Claudio MD [address] [place] [address] [email or web address] Historical LMR Provider 12/24/16 Esme Claudio MD [address] [place] [address] [email or web address] Insurance Assigned Provider 06/15/23 11/16/23 documented as of this encounter Additional Source Comments The information contained in this document represents components of the legal health record. It is not the complete legal health record.[facility]
--- OUTSIDE RECORDS SUMMARY | 2024-12-08 16:16 | XMS_ITS | Encounter Summary ---
Author Organization [facility] Address [address] [place] [address] Phone Care Team Providers Care Copy Director Name Role Phone Esme Claudio MD Unavailable [phone] Roseann Lopez Primary Care Provider Esme Claudio MD Unavailable Encounter Details Date Type Department Care Team (Late st Contact Info) Description 12/14/2022 Transcribe Orders Virtual Department [address] [place] [address] Roseann Lopez PA [address] [place] [address] [email or web address] Breast screening (Primary Dx) Social History Tobacco [...] MAMMOGRAM SCREENING WITH TOMOSYNTHESIS WITH CAD (BILATERAL) (01/15/2023 8:36 AM EST) Anatomical Region Laterality Modality Breast Left, Breast Right, Breast Bilateral Bila teral Mammography 01/16/2023 8:23 AM EST Impressions 01/16/2023 10:37 AM EST No mammographic signs of malignancy. Annual screening is recommended. BI-RADS CATEGORY: 2 - Benign finding. DENSITY: There are scattered fibroglandular densities. Narrative 01/16/2023 10:37 AM EST Bilateral mammography is performed in conjunction with computed aided detection. 3-D tomography along with 2-D C view imaging was also performed. Comparison made to previous dated as far back as 11/16/2016 and as recent as 08/16/2021. No suspicious masses, areas of architectural distortion or suspicious microcalcifications. Subcentimeter mass slightly medial to the nipple on the cc view is stable. Procedure Note Reji Delgadillo MD - 01/16/2023 Bilateral mammography is performed in conjunction with computed aideddetection. 3-D tomography along with 2-D C view imaging was alsoperformed. Comparison made to previous dated as far back as 11/16/2016 andas recent as 08/16/2021. No suspicious masses, areas of architectural distortion or suspiciousmicrocalcifications. Subcentimeter mass slightly medial to the nipple onthe cc view is stable. IMPRESSION: No mammographic signs of malignancy. Annual screening is recommended. BI-RADS CATEGORY: 2 - Benign finding. DENSITY: There are scattered fibroglandular densities. Roseann BERMAN IMG MG EXAMS Final Resul t documented in this encounter Visit Diagnoses Diagnosis Breast screening- Primary Breast screening, unspecified Breast screening Breast screening, unspecified documented in this encounter Care Teams Copy Director Relationship Specialty Start Date End Date Roseann Lopez PA [address] [place] [address] [address] [place] [address] [email or web address] PCP - General Unknown Provider Specialty 12/15/21 Esme Claudio MD [address] [place] [address] [email or web address] Historical LMR Provider 12/24/16 Esme Claudio MD [address] [place] [address] [email or web address] Insurance Assigned Provider 06/15/23 11/16/23 documented as of this encounter Additional Source Comments The information contained in this document represents components of the legal health record. It is not the complete legal health record.[facility]
--- OUTSIDE RECORDS SUMMARY | 2024-12-08 16:16 | XMS_ITS | Encounter Summary ---
Author Organization [facility] Address [address] [place] [address] Phone Care Team Providers Care Assessment Director Name Role Phone Esme Claudio MD Unavailable [phone] Roseann Lopez Primary Care Provider Esme Claudio MD Unavailable Encounter Details Date Type Department Care Team (Late st Contact Info) Description 01/09/2023 Ancillary Orders [facility], X-Ray - [address] [place] [address] Roseann Lopez PA [address] [place] [address] [email or web address] Vomiting, unspecified vomiting type, unspecified whether nausea [...] documented as of this encounter Results * XR CHEST PA AND LATERAL 2 VIEWS (01/09/2023 2:23 PM EDT) Anatomical Region Laterality Modality Chest Computed Radiogr aphy 01/11/2023 6:09 PM EDT Impressions 01/15/2023 8:25 AM EST No evidence of active cardiopulmonary disease. Narrative 01/15/2023 8:25 AM EST XR CHEST PA AND LATERAL 2 VIEWS HISTORY: Nausea, vomiting. COMPARISON: FINDINGS: Devices/Tubes/Lines: None. Lungs: Normal. The lungs are clear. No focal consolidation or pulmonary edema. Pleura: Normal. No pleural effusion or pneumothorax. Heart/Mediastinum: Normal heart and mediastinum. Bones/Soft Tissues: Normal. No significant skeletal abnormality. Anchors remain present within the right and left humeral heads from prior rotator cuff surgery's. Procedure Note Reji Delgadillo MD - 01/15/2023 XR CHEST PA AND LATERAL 2 VIEWS HISTORY: Nausea, vomiting. COMPARISON: FINDINGS: Devices/Tubes/Lines: None. Lungs: Normal. The lungs are clear. No focal consolidation or pulmonaryedema. Pleura: Normal. No pleural effusion or pneumothorax. Heart/Mediastinum: Normal heart and mediastinum. Bones/Soft Tissues: Normal. No significant skeletal abnormality. Anchorsremain present within the right and left humeral heads from prior rotatorcuff surgery's. IMPRESSION: No evidence of active cardiopulmonary disease. Roseann BERMAN IMG XR CHEST Final Resul t documented in this encounter Visit Diagnoses Diagnosis Vomiting, unspecified vomiting type, unspecified whether nausea present Vomiting, unspecified vomiting type, unspecified whether nausea present documented in this encounter Care Teams Assessment Director Relationship Specialty Start Date End Date Roseann Lopez PA [address] [place] [address] [email or web address] PCP - General Unknown Provider Specialty 12/15/21 Esme Claudio MD [address] [place] [address] [email or web address] Historical LMR Provider 12/24/16 Esme Claudio MD [address] [place] [address] [email or web address] Insurance Assigned Provider 06/15/23 11/16/23 documented as of this encounter Additional Source Comments The information contained in this document represents components of the legal health record. It is not the complete legal health record.[facility]
--- OUTSIDE RECORDS SUMMARY | 2024-12-08 16:16 | XMS_ITS | Encounter Summary ---
Author Organization [facility] Address [address] [place] [address] Phone Care Team Providers Care Shelter Director Name Role Phone Esme Claudio MD Unavailable [phone] Roseann Lopez Primary Care Provider [phone] Esme Claudio MD Unavailable [phone] Reason for Referral * MRI/CAT Scan - Closed Specialty Diagnoses / Procedures Referred By Contac t Referred To Contact Radiology Diagnoses Abdominal pain, generalized Procedures MRI Enterography Abdomen/Pelvis MRI PELVIS (GI/) CHG MRI, ABDOMEN, COMBO CHG MRI, ABDOMEN (MRI) CHG MRI, PELVIS, COMBO CHG MRI, PELVIS, W/O CONTRAST Concha Sotll PA [address] [place] [address] Phone: tel: fax: Referral ID Status Reason Start Date Expiration Date Visits Re quested Visits Authorized [id number] Closed 02/18/2023 03/20/2023 1 1 Encounter Details Date Type Department Care Team (Latest Contact Info) Description 12/10/2022 Transcribe Orders Virtual Department [address] [place] [address] Concha Stoll PA [address] [place] [phone] Abdominal pain, generalized (Primary Dx) Social History Tobacco Use Types [...] documented as of this encounter Results * MRI ENTEROGRAPHY ABDOMEN AND PELVIS WITH AND WITHOUT CONTRAST (02/18/2023 2:26 PM EST) Anatomical Region Laterality Modality Pelvis Magnetic Resonan ce 02/18/2023 7:55 PM EST Impressions 02/19/2023 5:27 AM EST No MRE evidence of active bowel inflammation, stricture, or penetrating disease. 5 mm pancreatic branch-duct IPMN without suspicious features. No main pancreatic duct dilation. Narrative 02/19/2023 5:27 AM EST MRI ENTEROGRAPHY ABDOMEN AND PELVIS WITH AND WITHOUT CONTRAST Referring clinician's provided indication for this examination in Epic: Outside Radiology Order; abdominal pain, generalized TECHNIQUE: MRI enterography with and without IV contrast. MR enterography was performed following oral contrast administration. This examination is tailored to evaluate for inflammatory changes in the bowel. COMPARISON: CT ABDOMEN/PELVIS (KIDNEY STONE) WITHOUT CONTRAST FINDINGS: BOWEL: No abnormal bowel wall thickening, mural hyperenhancement, or mural edema. Normal peristalsis on cinematic images. No abnormal dilatation to suggest stricture or bowel obstruction. No imaging sequelae of penetrating disease. Noninflamed colonic diverticula. Noninflamed appendix. MESENTERY: Unremarkable. LYMPH NODES: No lymphadenopathy. FLUID COLLECTIONS: No free ascites or focal fluid collection. OTHER SOLID ORGANS: Subcentimeter hepatic segment 7 and left renal simple appearing cysts. 5 mm cyst in the cranial aspect of the pancreatic body/tail junction without associated enhancement (3:19). Remaining visualized abdominal/pelvic organs are unremarkable. BONES: No sacroiliitis or avascular necrosis. Procedure Note Austin Donaldson MD - 02/19/2023 MRI ENTEROGRAPHY ABDOMEN AND PELVIS WITH AND WITHOUT CONTRAST Referring clinician's provided indication for this examination in Epic:Outside Radiology Order; abdominal pain, generalized TECHNIQUE: MRI enterography with and without IV contrast. MR enterographywas performed following oral contrast administration. This examination istailored to evaluate for inflammatory changes in the bowel. COMPARISON: CT ABDOMEN/PELVIS (KIDNEY STONE) WITHOUT [id number] FINDINGS: BOWEL: No abnormal bowel wall thickening, mural hyperenhancement, or muraledema. Normal peristalsis on cinematic images. No abnormal dilatation tosuggest stricture or bowel obstruction. No imaging sequelae of penetratingdisease. Noninflamed colonic diverticula. Noninflamed appendix. MESENTERY: Unremarkable. LYMPH NODES: No lymphadenopathy. FLUID COLLECTIONS: No free ascites or focal fluid collection. OTHER SOLID ORGANS: Subcentimeter hepatic segment 7 and left renal simpleappearing cysts. 5 mm cyst in the cranial aspect of the pancreaticbody/tail junction without associated enhancement (3:19). Remainingvisualized abdominal/pelvic organs are unremarkable. BONES: No sacroiliitis or avascular necrosis. IMPRESSION: No MRE evidence of active bowel inflammation, stricture, or penetratingdisease. 5 mm pancreatic branch-duct IPMN without suspicious features. No mainpancreatic duct dilation. us Concha BERMAN IMG MR ABDOMEN Final Resul t documented in this encounter Visit Diagnoses Diagnosis Abdominal pain, generalized- Primary Abdominal pain, generalized documented in this encounter Care Teams Shelter Director Relationship Specialty Start Date End Date Roseann Lopez PA [address] [place] [address] [email or web address] PCP - General Unknown Provider Specialty 12/15/21 Esme Claudio MD [address] [place] [address] [email or web address] Historical LMR Provider 12/24/16 Esme Claudio MD [address] [place] [address] [email or web address] Insurance Assigned Provider 06/15/23 11/16/23 documented as of this encounter Additional Source Comments The information contained in this document represents components of the legal health record. It is not the complete legal health record.[facility]
--- OUTSIDE RECORDS SUMMARY | 2024-12-08 16:16 | XMS_ITS | Encounter Summary ---
Author Organization [facility] Address [address] [place] [address] Phone Care Team Providers Care Parking Lot Attendant And Cashier Name Role Phone Tiffanie Crow MD Unavailable Destin Freed MD Unavailable Alisia Velasquez MD Unavailable Presley Bhandari MD Unavailable Ana Lilia Mclain-C Unavailable Esme Claudio MD Unavailable Neeraj Win MD Unavailable Esme Aaron MD Unavailable [phone] Jose Carlos Katz MD Unavailable Esme Claudio MD Primary Care Provider + Esme Claudio MD Unavailable Cullen Corrigan MD Unavailable Roseann Lopez Primary Care Provider [phone] Cullen Corrigan MD Unavailable Esme Claudio MD Unavailable [phone] Encounter Details Date Type Department Care Team (Late st Contact Info) Description 09/10/2017 Ancillary Orders [facility], [place] - [address] [address] Katya Burnham PA-C [address] [place] [address] [email or web address] Asthma, unspecified asthma severity, unspecified whether complicated, unspecified whether persistent; Pneumonia due to infectious organism, unspecified laterality, unspecified part of lung Social History Tobacco Use Types Packs/Day Years [...] XR CHEST PA AND LATERAL 2 VIEWS (09/10/2017 4:59 PM EDT) Anatomical Region Laterality Modality Chest Radiographic Nuris ging 09/10/2017 5:02 PM EDT Impressions 09/10/2017 5:05 PM EDT No evidence of active cardiopulmonary disease. POS - [id number] Narrative 09/10/2017 5:05 PM EDT HISTORY: Cough, asthma COMPARISON: Chest x-rays from 04/15/2007 to 09/29/2013. FINDINGS: PA and lateral views of the chest obtained. The lungs appear clear. No evidence of pleural effusions or pneumothorax. Great vessel and cardiomediastinal contours are stable and within normal limits. No other significant changes. Procedure Note Reji Chapin MD - 09/10/2017 HISTORY: Cough, asthma COMPARISON: Chest x-rays from 04/15/2007 to 09/29/2013. FINDINGS: PA and lateral views of the chest obtained. The lungs appear clear. No evidence of pleural effusions or pneumothorax.Great vessel and cardiomediastinal contours are stable and within normallimits. No other significant changes. IMPRESSION: No evidence of active cardiopulmonary disease. POS - [id number] us Katya Burnham PA-C IMG XR CHEST Final Result documented in this encounter Visit Diagnoses Diagnosis Asthma, unspecified asthma severity, unspecified whether complicated, unspecified whether persistent Pneumonia due to infectious organism, unspecified laterality, unspecified part of lung Asthma, unspecified asthma severity, unspecified whether complicated, unspecified whether persistent Pneumonia due to infectious organism, unspecified laterality, unspecified part of lung documented in this encounter Additional Health Concerns Infection Onset Date Last Indicated Resolved Time CoV-Risk 06/26/2019 06/27/2019 07/11/2019 1:23 AM EDT documented as of this encounter Care Teams Parking Lot Attendant And Cashier Relationship Specialty Start Date End Date Esme Claudio MD [address] [place] [address] [email or web address] PCP - General Family Medicine 02/08/17 12/14/21 Roseann Lopez PA [address] [place] [address] [address] [place] [address] [email or web address] PCP - General Unknown Provider Specialty 12/15/21 Tiffanie Crow MD [address] [place] [address] [address] [place] [address] Historical LMR Provider 12/24/16 2 Destin Freed MD [address] [place] [address] [email or web address] Historical LMR Provider 12/24/16 03/18/21 Alisia Velasquez MD [address] [place] [address], [address] [place] [address] [email or web address] Historical LMR Provider 12/24/16 Presley Bhandari MD [address] [place] [address] Historical LMR Provider 12/24/16 Ana Lilia Mclain PA-C [address] [facility], [place] [address] [email or web address] Historical LMR Provider 12/24/16 03/18/21 Esme Claudio MD [address] [place] [address] Historical LMR Provider 12/24/16 Neeraj Win MD [address] [address] Historical LMR Provider 12/24/16 03/18/21 Esme Aaron MD [address] [place] [address] Historical LMR Provider 12/24/16 2 Jose Carlos Katz MD [address] [place] [address] [facility], [place] [address] [email or web address] Historical LMR Provider 12/24/16 2 Esme Claudio MD [address] [place] [address] Insurance Assigned Provider 07/12/18 10/15/20 Cullen Corrigan MD [address] [place] [address] [email or web address] Insurance Assigned Provider 10/15/20 06/17/21 Cullen Corrigan MD [address] [place] [address] [email or web address] Insurance Assigned Provider 07/14/22 09/15/22 Esme Claudio MD [address] [place] [address] [email or web address] Insurance Assigned Provider 06/15/23 11/16/23 documented as of this encounter Additional Source Comments The information contained in this document represents components of the legal health record. It is not the complete legal health record.[facility]
--- OUTSIDE RECORDS SUMMARY | 2024-12-08 16:16 | XMS_ITS | Encounter Summary ---
Author Organization [facility] Address [address] [place] [address] Phone Care Team Providers Care Environmental Technical Officer Name Role Phone Tiffanie Crow MD Unavailable Destin Freed MD Unavailable Alisia Velasquez MD Unavailable Presley Bhandari MD Unavailable Ana Lilia Mclain-C Unavailable [phone] Esme Claudio MD Unavailable Neeraj Win MD Unavailable Esme Aaron MD Unavailable Jose Carlos Katz MD Unavailable [phone] Esme Claudio MD Primary Care Provider + Esme Claudio MD Unavailable Cullen Corrigan MD Unavailable Roseann Lopez Primary Care Provider [phone] Cullen Corrigan MD Unavailable [phone] Esme Claudio MD Unavailable [phone] Reason for Referral * MRI/CAT Scan - Closed Specialty Diagnoses / Procedures Referred By Contac t Referred To Contact Radiology Diagnoses Dyspnea, unspecified type Bloating Family history of ischemic heart disease and other diseases of the circulatory system Procedures NC Myocardial Perfusion Pharmacologic Stress Multiple Roseann Lopez PA Phone: tel: fax: [email or web address] Referral ID Status Reason Start Date Expiration Date Visits Re quested Visits Authorized [id number] Closed 06/12/2018 06/12/2019 1 1 Encounter Details Date Type Department Care Team (Late st Contact Info) Description 06/12/2018 Transcribe Orders Virtual Department [address] [place] [address] Roseann Lopez PA [address] [place] [address] Dyspnea, unspecified type (Primary Dx); Bloating; Family history of ischemic heart disease and other diseases of the circulatory system Social History Tobacco Use Types Packs/Day Years [...] documented as of this encounter Results * NC Myocardial Perfusion Pharmacologic Stress Multiple (06/19/2018 1:15 PM EDT) Anatomical Region Laterality Modality Heart, Vascular Nuclear Medicine 06/19/2018 2:00 PM EDT Impressions 06/19/2018 2:08 PM EDT No scintigraphic evidence of ischemia, infarct or impaired LV function. POS [id number] Narrative 06/19/2018 2:08 PM EDT Cardiac perfusion scintigraphy A single day Lexiscan protocol was utilized. SPECT rest imaging was performed with 9.13 mCi of sestamibi. Subsequently gated SPECT pharmacologic stress imaging was performed with 30.3 mCi of sestamibi. The preliminary report of the EKG portion of the study describes no EKG or symptomatic changes suspicious for ischemia. Scintigraphic findings: No significant perfusion defect at any site in the LV myocardium at rest or stress. Cine review of the gated study shows well preserved wall motion and thickening throughout the LV. Ejection fraction was estimated at 71% which seems subjectively appropriate. T.I.d. ratio 1.02. Procedure Note Anthony Dorsey MD - 06/19/2018 Cardiac perfusion scintigraphy A single day Lexiscan protocol was utilized. SPECT rest imaging was performed with 9.13 mCi of sestamibi. Subsequentlygated SPECT pharmacologic stress imaging was performed with 30.3 mCi ofsestamibi. The preliminary report of the EKG portion of the study describes no EKG orsymptomatic changes suspicious for ischemia. Scintigraphic findings: No significant perfusion defect at any site in the LV myocardium at restor stress. Cine review of the gated study shows well preserved wall motion andthickening throughout the LV. Ejection fraction was estimated at 71% which seems subjectivelyappropriate. T.I.d. ratio 1.02. IMPRESSION: No scintigraphic evidence of ischemia, infarct or impaired LV function. POS [id number] Roseann BERMAN CV NM CARDIAC Final Resul t documented in this encounter Visit Diagnoses Diagnosis Dyspnea, unspecified type- Primary Bloating Flatulence, eructation, and gas pain Family history of ischemic heart disease and other diseases of the circulatory system Dyspnea, unspecified type Bloating Flatulence, eructation, and gas pain Family history of ischemic heart disease and other diseases of the circulatory system documented in this encounter Additional Health Concerns Infection Onset Date Last Indicated Resolved Time CoV-Risk 06/26/2019 06/27/2019 07/11/2019 1:23 AM EDT documented as of this encounter Care Teams Environmental Technical Officer Relationship Specialty Start Date End Date Esme Claudio MD [address] [place] [address] PCP - General Family Medicine 02/08/17 12/14/21 Roseann Lopez PA [address] [place] [address] [address] [place] [address] [email or web address] PCP - General Unknown Provider Specialty 12/15/21 Tiffanie Crow MD [address] [place] [address] 3 [place] [address] Historical LMR Provider 12/24/16 2 Destin Freed MD [address] [place] [address] [email or web address] Historical LMR Provider 12/24/16 03/18/21 Alisia Velasquez MD [address] [place] [address], [address] [place] [address] [email or web address] Historical LMR Provider 12/24/16 Presley Bhandari MD [address] [place] [address] Historical LMR Provider 12/24/16 Ana Lilia Mclain PA-C [address] [place] [address] Orthopedics & Sports Medicine, [place] [address] [email or web address] Historical LMR Provider 12/24/16 03/18/21 Esme Claudio MD [address] [place] [address] [email or web address] Historical LMR Provider 12/24/16 Neeraj Win MD [address] [address] Historical LMR Provider 12/24/16 03/18/21 Esme Aaron MD [address] [place] [phone] Historical LMR Provider 12/24/16 2 Jose Carlos Katz MD [address] [place] [address] Orthoped[facility] Sports Medicine, [place] [address] Historical LMR Provider 12/24/16 2 Esme Claudio MD [address] [place] [address] Insurance Assigned Provider 07/12/18 10/15/20 Cullen Corrigan MD [address] [place] [address] Insurance Assigned Provider 10/15/20 06/17/21 Cullen Corrigan MD [address] [place] [address] Insurance Assigned Provider 07/14/22 09/15/22 Esme Claudio MD [address] [place] [address] Insurance Assigned Provider 06/15/23 11/16/23 documented as of this encounter Additional Source Comments The information contained in this document represents components of the legal health record. It is not the complete legal health record.[facility]
--- OUTSIDE RECORDS SUMMARY | 2024-12-08 16:16 | XMS_ITS | Encounter Summary ---
Author Organization [facility] Address [address] [place] [address] Phone Care Team Providers Care Manager Talent Management Name Role Phone Tiffanie Crow MD Unavailable Destin Freed MD Unavailable Alisia Velasquez MD Unavailable Presley Bhandari MD Unavailable Ana Lilia Mclain-C Unavailable Esme Claudio MD Unavailable Neeraj Win MD Unavailable Esme Aaron MD Unavailable [phone] Jose Carlos Katz MD Unavailable Esme Claudio MD Primary Care Provider + Esme Claudio MD Unavailable Cullen Corrigan MD Unavailable Roseann Lopez Primary Care Provider [phone] Cullen Corrigan MD Unavailable Esme Claudio MD Unavailable Encounter Details Date Type Department Care Team (Late st Contact Info) Description 06/19/2018 Ancillary Orders [facility] Department [address] [place] [address] Roseann Lopez PA [address] [place] [address] [email or web address] Dyspnea, unspecified type; Bloating; Family history of ischemic heart disease [...] as of this encounter Results * NC Stress Result for Nuclear Stress Test (06/19/2018 11:24 AM EDT) Max BP Systolic 170 mmHg [facility] Max BP Diastolic 88 mmHg [facility] Max HR 113 BPM [facility] Resting HR 90 BPM [facility] Resting BP Systolic 140 mmHg [facility] Resting BP Diastolic 88 mmHg [facility] Peak METS 1.0 METS [facility] Peak HR 110 BPM [facility] Anatomical Region Laterality Modality Heart Other 06/19/2018 9:50 AM EDT 06/19/2018 11:21 AM EDT Narrative 06/19/2018 11:59 AM EDT Response to Stress The patient exercised for minutes seconds, achieving 1.0 METS at peak exercise. Baseline blood pressure was 140/88 mmHg, and baseline heart rate was 90 bpm. The patient achieved a peak heart rate of 110 bpm, which is% of their maximum predicted heart rate. REGADENOSON Exercise Stress Test Report: Reason for testing: SOB Reason for termination: Protocol complete Summary: Resting ECG: SR HR 97 BPM, RSR' Chest pain at rest: none Arrhythmias at baseline: none Patient unable to complete test on TM due to easily SOB with ambulation. The patient was infused with 0.4 mg of Regadenoson (Lexiscan) intravenously over 10 seconds followed immediately by the injection of the radiopharmaceutical. Patient tolerated Lexiscan infusion without complications. Test terminated due to completion of protocol. Summary: 1. EKG: No EKG changes suggestive of ischemia 2. Symptoms: No chest pain or symptoms concerning for angina 3. Exercise physiology: Normal physiologic response to pharmacologic agent. HR to 113 BPM after injection of Regadenoson. BP 140/88 at baseline, 170/88 after administration of agent. See attached stress report for full details. 4. Arrhythmia: None Conclusion: Nondiagnostic pharmacologic stress test. No ischemic EKG changes from baseline with pharmacologic protocol. Patient hemodynamically stable at completion of exam. Nuclear image results pending under separate document. EKG reviewed with Dr. Amaya. Christa Torres, CARDIAC CATHETERIZATION TECHNOLOGIST, MPH . Roseann BERMAN CV NM CARDIAC Final Resul t documented in this encounter Visit Diagnoses Diagnosis Dyspnea, unspecified type Bloating Flatulence, eructation, and [...] documented as of this encounter Care Teams Manager Talent Management Relationship Specialty Start Date End Date Esme Claudio MD [address] [place] [address] [email or web address] PCP - General Family Medicine 02/08/17 12/14/21 Roseann Lopez PA [address] [place] [address] [address] [place] [address] [email or web address] PCP - General Unknown Provider Specialty 12/15/21 Tiffanie Crow MD [address] [place] [address] Historical LMR Provider 12/24/16 2 Destin Freed MD [address] [place] [address] [email or web address] Historical LMR Provider 12/24/16 03/18/21 Alisia Velasquez MD [address] [facility], 2nd [place] [address] [email or web address] Historical LMR Provider 12/24/16 Presley Bhandari MD [address] [place] [address] Historical LMR Provider 12/24/16 Ana Lilia Mclain PA-C [address] [place] [address] Orthopedics & Sports [facility], [place] [address] [email or web address] Historical LMR Provider 12/24/16 03/18/21 Esme Claudio MD [address] [place] [address] Historical LMR Provider 12/24/16 Neeraj Win MD [address] [facility], [address] [place] [address] [email or web address] Historical LMR Provider 12/24/16 03/18/21 Esme Aaron MD [address] [place] [address] Historical LMR Provider 12/24/16 2 Jose Carlos Katz MD [address] [place] [address] Orthopedics & Sports [facility], [place] [address] [email or web address] Historical LMR Provider 12/24/16 2 Esme Claudio MD [address] [place] [address] [email or web address] Insurance Assigned Provider 07/12/18 10/15/20 Cullen Corrigan MD [address] [place] [address] [email or web address] Insurance Assigned Provider 10/15/20 06/17/21 Cullen Corrigan MD [address] [place] [address] Insurance Assigned Provider 07/14/22 09/15/22 Esme Claudio MD [address] [place] [address] [email or web address] Insurance Assigned Provider 06/15/23 11/16/23 documented as of this encounter Additional Source Comments The information contained in this document represents components of the legal health record. It is not the complete legal health record.[facility]
--- OUTSIDE RECORDS SUMMARY | 2024-12-08 16:16 | XMS_ITS | Encounter Summary ---
Author Organization [facility] Address [address] [place] [address] Phone Care Team Providers Care Net Developer Software Engineer C Name Role Phone Tiffanie Crow MD Unavailable Destin Freed MD Unavailable Alisia Velasquez MD Unavailable Presley Bhandari MD Unavailable Ana Lilia Mclain-C Unavailable Esme Claudio MD Unavailable Neeraj Win MD Unavailable Esme Aaron MD Unavailable [phone] Jose Carlos Katz MD Unavailable Esme Claudio MD Primary Care Provider + Esme Claudio MD Unavailable Cullen Corrigan MD Unavailable Roseann Lopez Primary Care Provider [phone] Cullen Corrigan MD Unavailable Esme Claudio MD Unavailable [phone] Encounter Details Date Type Department Care Team (Late st Contact Info) Description 06/11/2018 Transcribe Orders [facility] Department [address] [place], [place] [phone] Roseann Lopez PA [address] [place] [address] [address] [place] [address] [email or web address] Dysphagia, unspecified type (Primary Dx) Social History Tobacco Use Types [...] as of this encounter Visit Diagnoses Diagnosis Dysphagia, unspecified type- Primary documented in this encounter Additional Health Concerns Infection Onset Date Last Indicated Resolved Time CoV-Risk 06/26/2019 06/27/2019 07/11/2019 1:23 AM EDT documented as of this encounter Care Teams Net Developer Software Engineer C Relationship Specialty Start Date End Date Esme Claudio MD [address] [place] [address] [email or web address] PCP - General Family Medicine 02/08/17 12/14/21 Roseann Lopez PA [address] [place] [address] Dr [address] [place] [address] [email or web address] PCP - General Unknown Provider Specialty 12/15/21 Tiffanie Crow MD [address] [place] [address] 3 [place] [address] Historical LMR Provider 12/24/16 2 Destin Freed MD [address] [place] [address] [email or web address] Historical LMR Provider 12/24/16 03/18/21 Alisia Velasquez MD [address] [facility], 2nd [place] [address] [email or web address] Historical LMR Provider 12/24/16 Presley Bhandari MD [address] [place] [address] Historical LMR Provider 12/24/16 Ana Lilia Mclain PA-C [address] [place] [address] Orthopedics Sports [facility], [place] [address] [email or web address] Historical LMR Provider 12/24/16 03/18/21 Esme Claudio MD [address] [place] [address] [email or web address] Historical LMR Provider 12/24/16 Neeraj Win MD [address] [facility], [address] [place] [address] [email or web address] Historical LMR Provider 12/24/16 03/18/21 Esme Aaron MD [address] [address] Historical LMR Provider 12/24/16 2 Jose Carlos Katz MD [address] [place] [address] Orthopedics Sports [facility], [place] [address] [email or web address] Historical LMR Provider 12/24/16 2 Esme Claudio MD [address] [place] [address] [email or web address] Insurance Assigned Provider 07/12/18 10/15/20 Cullen Corrigan MD [address] [place] [address] [email or web address] Insurance Assigned Provider 10/15/20 06/17/21 Cullen Corrigan MD [address] [place] [address] Insurance Assigned Provider 07/14/22 09/15/22 Esme Claudio MD [address] [place] [address] [email or web address] Insurance Assigned Provider 06/15/23 11/16/23 documented as of this encounter Additional Source Comments The information contained in this document represents components of the legal health record. It is not the complete legal health record.[facility]
--- OUTSIDE RECORDS SUMMARY | 2024-12-08 16:16 | XMS_ITS | Encounter Summary ---
Author Organization [facility] Address [address] [place] [address] Phone Care Team Providers Care Cotton Gin Yard Supervisor Name Role Phone Tiffanie Crow MD Unavailable Destin Freed MD Unavailable Alisia Velasquez MD Unavailable Presley Bhandari MD Unavailable Ana Lilia Mclain-C Unavailable Esme Claudio MD Unavailable Neeraj Win MD Unavailable Esme Aaron MD Unavailable [phone] Jose Carlos Katz MD Unavailable Esme Claudio MD Primary Care Provider + Esme Claudio MD Unavailable Cullen Corrigan MD Unavailable Roseann Lopez Primary Care Provider [phone] Cullen Corrigan MD Unavailable Esme Claudio MD Unavailable [phone] Encounter Details Date Type Department Care Team (Latest Contact Info) Description 02/08/2017 Transcribe Orders [address] [place] [address] Mark Ferris MD [address] [place] [address] Frequent bowel movements (Primary Dx) Social History Tobacco Use Types [...] documented as of this encounter Results * Tissue transglutaminase IgA (02/08/2017 11:15 AM EST) TTG IGA ANTIBODY <1.2 <4.0 (Negative) U/mL [facility] DPT OF LAB MED AND PAT+ Blood 02/08/2017 11:1 5 AM EST 02/08/2017 11:18 AM EST us Mark Ferris MD LAB BLOOD ORDERABLES Final Resul t [facility] DPT OF LAB MED AND PAT+ [address] [place] [address] * Immunoglobulin A (02/08/2017 11:15 AM EST) IgA 153 70 - 400 mg/dL [facility] Blood 02/08/2017 11:1 5 AM EST 02/08/2017 11:18 AM EST us Mark Ferris MD LAB BLOOD ORDERABLES Final Resul t [facility] [address] [place] [address] documented in this encounter Visit Diagnoses Diagnosis Frequent bowel movements- Primary Other symptoms involving digestive system documented in this encounter Additional Health Concerns Infection Onset Date Last Indicated Resolved Time CoV-Risk 06/26/2019 06/27/2019 07/11/2019 1:23 AM EDT documented as of this encounter Care Teams Cotton Gin Yard Supervisor Relationship Specialty Start Date End Date Esme Claudio MD [address] [place] [address] [email or web address] PCP - General Family Medicine 02/08/17 12/14/21 Roseann Lopez PA [address] [place] [address] [address] [place] [address] [email or web address] PCP - General Unknown Provider Specialty 12/15/21 Tiffanie Crow MD [address] [place] [address] 3 [place] [address] Historical LMR Provider 12/24/16 2 Destin Freed MD [address] [place] [address] [email or web address] Historical LMR Provider 12/24/16 03/18/21 Alisia Velasquez MD [address] [place] [address] [email or web address] Historical LMR Provider 12/24/16 Presley Bhandari MD [address] [place] [address] Historical LMR Provider 12/24/16 Ana Lilia Mclain PA-C [address] [place] [address] Orthopedics & Sports Medicine, [place] [address] [email or web address] Historical LMR Provider 12/24/16 03/18/21 Esme Claudio MD [address] [place] [address] Historical LMR Provider 12/24/16 Neeraj Win MD [address] [address] Historical LMR Provider 12/24/16 03/18/21 Esme Aaron MD [address] [place] [phone] Historical LMR Provider 12/24/16 2 Jose Carlos Katz MD [address] [place] [address] [facility], [place] [address] Historical LMR Provider 12/24/16 2 Esme Claudio MD [address] [place] [address] Insurance Assigned Provider 07/12/18 10/15/20 Cullen Corrigan MD [address] [place] [address] Insurance Assigned Provider 10/15/20 06/17/21 Cullen Corrigan MD [address] [place] [address] Insurance Assigned Provider 07/14/22 09/15/22 Esme Claudio MD [address] [place] [address] [email or web address] Insurance Assigned Provider 06/15/23 11/16/23 documented as of this encounter Additional Source Comments The information contained in this document represents components of the legal health record. It is not the complete legal health record.[facility]
--- OUTSIDE RECORDS SUMMARY | 2024-12-08 16:16 | XMS_ITS | Encounter Summary ---
Author Organization [facility], Address [address] [place] [address] Phone Care Team Providers Care Branch Sales And Service Representative Name Role Phone Austin Rios PA-C Primary Care Provider [phone] Encounter Details Date Type Department Care Team (Late st Contact Info) Description 04/10/2024 Documentation Only [facility] [address] [place] [address] Lisbeth Avilez [address] [place] [phone] Social History Tobacco Use Types Packs/Day [...] Visit [facility] [place] [address] [place] [phone] Remberto Fletcher MD [address] [place] [address] [place] [phone] documented as of this encounter Visit Diagnoses Not on filedocumented in this encounter Care Teams Branch Sales And Service Representative Relationship Specialty Start Date End Date Austin Rios PA-C [address] [place] [address] PCP - General Physician Recreational Vehicle Repairer 02/27/24 documented as of this encounter
--- OUTSIDE RECORDS SUMMARY | 2024-12-08 16:16 | XMS_ITS | Encounter Summary ---
Author Organization [facility] Address [address] [place] [address] Phone Care Team Providers Care Clinical Trials Systems Administrator Name Role Phone Tiffanie Crow MD Unavailable + [phone] Destin Freed MD Unavailable Alisia Velasquez MD Unavailable [phone] Presley Bhandari MD Unavailable [phone] Ana Lilia Mclain-C Unavailable [phone] Esme Claudio MD Unavailable [phone] Neeraj Win MD Unavailable [phone] Esme Aaron MD Unavailable [phone] Jose Carlos Katz MD Unavailable [phone] Esme Claudio MD Primary Care Provider + Esme Claudio MD Unavailable +[phone] Cullen Corrigan MD Unavailable [phone] Roseann Lopez Primary Care Provider [phone] Cullen Corrigan MD Unavailable + [phone] Esme Claudio MD Unavailable +[phone] Reason for Referral * Physical Therapy (Routine) - Closed Specialty Diagnoses / Procedures Referred By Contac t Referred To Contact Physical Therapy Diagnoses Encounter for rehabilitation Mark Ferris MD Phone: tel: fax: [email or web address] [address] [place] [address] Phone: tel: Referral ID Status Reason Start Date Expiration Date Visits Re quested Visits Authorized [id number] Closed 02/21/2017 02/21/2018 1 1 Encounter Details Date Type Department Care Team (Latest Contact Info) Description 02/21/2017 Transcribe Orders [facility] [address] [place] [address] Mark Ferris MD [address] [place] [phone] [email or web address] Encounter for rehabilitation (Primary Dx) Social History Tobacco Use Types Packs/Day Years Used Date Smoking Tobacco: Never Assessed Comments Unknown Sex and Gender Information Value Date Recorded Sex Assigned at Female 09/10/2017 4:45 PM EDT Legal Sex Female 9:44 PM EDT Gender Identity Female 09/10/2017 4:45 PM EDT Sexual Orientation Not on file documented as of this encounter Plan of Treatment Scheduled Referrals Name Type Priority Associated Diagnoses Orde r Schedule Ambulatory referral to [facility] Physical Therapy Outpatient Referral Routine Encounter for rehabilitation Ordered: 02/21/2017 documented as of this encounter Visit Diagnoses Diagnosis Encounter for rehabilitation- Primary documented in this encounter Additional Health Concerns Infection Onset Date Last Indicated Resolved Time CoV-Risk 06/26/2019 06/27/2019 07/11/2019 1:23 AM EDT documented as of this encounter Care Teams Clinical Trials Systems Administrator Relationship Specialty Start Date End Date Esme Claudio MD [address] [place] [address] PCP - General Family Medicine 02/08/17 12/14/21 Roseann Lopez PA [address] [place] [address] [address] [place] [address] [email or web address] PCP - General Unknown Provider Specialty 12/15/21 Tiffanie Crow MD [address] [place] [address] 3 [place] [address] Historical LMR Provider 12/24/16 2 Destin Freed MD [address] [place] [address] [email or web address] Historical LMR Provider 12/24/16 03/18/21 Alisia Velasquez MD [address] [place] [address], 2nd [place] [address] [email or web address] Historical LMR Provider 12/24/16 Presley Bhandari MD [address] [place] [address] Historical LMR Provider 12/24/16 Ana Lilia Mclain PA-C [address] [place] [address] Orth[facility] Medicine, [place] [address] [email or web address] Historical LMR Provider 12/24/16 03/18/21 Esme Claudio MD [address] [place] [address] Historical LMR Provider 12/24/16 Neeraj Win MD [address] [facility], [address] [place] [address] Historical LMR Provider 12/24/16 03/18/21 Esme Aaron MD [address] [place] [address] Historical LMR Provider 12/24/16 2 Jose Carlos Katz MD [address] [place] [address] [facility], [place] [address] Historical LMR Provider 12/24/16 2 Esme Claudio MD [address] [place] [address] Insurance Assigned Provider 07/12/18 10/15/20 Cullen Corrigan MD [address] [place] [address] Insurance Assigned Provider 10/15/20 06/17/21 Cullen Corrigan MD [address] [place] [phone] Insurance Assigned Provider 07/14/22 09/15/22 Esme Claudio MD [address] [place] [address] Insurance Assigned Provider 06/15/23 11/16/23 documented as of this encounter Additional Source Comments The information contained in this document represents components of the legal health record. It is not the complete legal health record.[facility]
--- OUTSIDE RECORDS SUMMARY | 2024-12-08 16:16 | XMS_ITS | Encounter Summary ---
Author Organization [facility] Address [address] [place] [phone] Phone Care Team Providers Care Pizza Cook Name Role Phone Tiffanie Crow MD Unavailable Destin Freed MD Unavailable Alisia Velasquez MD Unavailable Presley Bhandari MD Unavailable Ana Lilia Mclain-C Unavailable Esme Claudio MD Unavailable Neeraj Win MD Unavailable Esme Aaron MD Unavailable [phone] Jose Carlos Katz MD Unavailable Esme Claudio MD Primary Care Provider + Esme Claudio MD Unavailable Cullen Corrigan MD Unavailable Roseann Lopez Primary Care Provider [phone] Cullen Corrigan MD Unavailable Esme Claudio MD Unavailable [phone] Encounter Details Date Type Department Care Team (Late st Contact Info) Description 09/08/2018 Ancillary Orders [facility] Department [address] [place] [address] Jennifer Cueto, SHIRA [address] [place] [address] Epigastric abdominal pain Social History Tobacco Use Types Packs/Day Years [...] documented as of this encounter Results * US Abdomen Complete (09/08/2018 4:30 PM EDT) Anatomical Region Laterality Modality Abdomen Ultrasound 09/08/2018 4:39 PM EDT Impressions 09/08/2018 4:40 PM EDT Slightly hyperechoic hepatic parenchyma suggesting fatty infiltration, without evidence of cholecystitis or other significant abnormality of the visualized upper abdominal visceral structures. POS - [id number] Narrative 09/08/2018 4:40 PM EDT One FINDINGS: The gallbladder is within normal limits in appearance without evidence of cholelithiasis or focal wall thickening. The intrahepatic bile ducts are nondilated and the common duct is within normal limits at 0.2 cm in diameter. The liver is within normal limits in size but displays a slightly hyperechoic parenchymal echo-texture without focal mass or cyst identified. The spleen is within normal limits in size and displays homogeneous parenchymal echotexture. The pancreas and kidneys are within normal limits in size and sonographic appearance, as are the visualized portions of the proximal abdominal aorta and IVC. Procedure Note Eric Roche MD - 09/08/2018 One FINDINGS: The gallbladder is within normal limits in appearance without evidence ofcholelithiasis or focal wall thickening. The intrahepatic bile ducts arenondilated and the common duct is within normal limits at 0.2 cm indiameter. The liver is within normal limits in size but displays aslightly hyperechoic parenchymal echo- texture without focal mass or cystidentified. The spleen is within normal limits in size and displayshomogeneous parenchymal echotexture. The pancreas and kidneys are withinnormal limits in size and sonographic appearance, as are the visualizedportions of the proximal abdominal aorta and IVC. IMPRESSION: Slightly hyperechoic hepatic parenchyma suggesting fatty infiltration,without evidence of cholecystitis or other significant abnormality of thevisualized upper abdominal visceral structures. POS - [id number] us Jennifer Cueto COMMAND AND CONTROL IMG US ABDOMEN Final Re sult documented in this encounter Visit Diagnoses Diagnosis Epigastric abdominal pain Abdominal pain, epigastric Epigastric abdominal pain Abdominal pain, epigastric documented in this encounter Additional Health Concerns Infection Onset Date Last Indicated Resolved Time CoV-Risk 06/26/2019 06/27/2019 07/11/2019 1:23 AM EDT documented as of this encounter Care Teams Pizza Cook Relationship Specialty Start Date End Date Esme Claudio MD [address] [place] [address] [email or web address] PCP - General Family Medicine 02/08/17 12/14/21 Roseann Lopez PA [address] [place] [address] [address] [place] [address] [email or web address] PCP - General Unknown Provider Specialty 12/15/21 Tiffanie Crow MD [address] [place] [address] 3 [place] [address] Historical LMR Provider 12/24/16 2 Destin Freed MD [address] [place] [phone] [email or web address] Historical LMR Provider 12/24/16 03/18/21 Alisia Velasquez MD [address] [place] [address], [address] [place] [address] Historical LMR Provider 12/24/16 Presley Bhandari MD [address] [place] [address] Historical LMR Provider 12/24/16 Ana Lilia Mclain PA-C [address] [place] [address] Orthopedics & Sports Medicine, [place] [address] Historical LMR Provider 12/24/16 03/18/21 Esme Claudio MD [address] [place] [address] Historical LMR Provider 12/24/16 Neeraj Win MD [address] [address] [email or web address] Historical LMR Provider 12/24/16 03/18/21 Esme Aaron MD [address], [place] [address] Historical LMR Provider 12/24/16 2 Jose Carlos Katz MD [address] [place] [address] Orthopedics & Sports [facility], [place] [address] [email or web address] Historical LMR Provider 12/24/16 2 Esme Claudio MD [address] [place] [address] [email or web address] Insurance Assigned Provider 07/12/18 10/15/20 Cullen Corrigan MD [address] [place] [address] [email or web address] Insurance Assigned Provider 10/15/20 06/17/21 Cullen Corrigan MD [address] [place] [address] [email or web address] Insurance Assigned Provider 07/14/22 09/15/22 Esme Claudio MD [address] [place] [address] [email or web address] Insurance Assigned Provider 06/15/23 11/16/23 documented as of this encounter Additional Source Comments The information contained in this document represents components of the legal health record. It is not the complete legal health record.[facility]
--- OUTSIDE RECORDS SUMMARY | 2024-12-08 16:16 | XMS_ITS | Encounter Summary ---
Author Organization [facility] Address [address] [place] [address] Phone Care Team Providers Care Pole Climber Name Role Phone Tiffanie Crow MD Unavailable Destin Freed MD Unavailable Alisia Velasquez MD Unavailable Presley Bhandari MD Unavailable Ana Lilia Mclain-C Unavailable Esme Claudio MD Unavailable Neeraj Win MD Unavailable Esme Aaron MD Unavailable [phone] Jose Carlos Katz MD Unavailable Esme Claudio MD Primary Care Provider + Esme Claudio MD Unavailable Cullen Corrigan MD Unavailable Roseann Lopez Primary Care Provider [phone] Cullen Corrigan MD Unavailable Esme Claudio MD Unavailable Encounter Details Date Type Department Care Team (Late st Contact Info) Description 06/11/2018 Ancillary Orders [facility] Department [address] [place] [address] Roseann Lopez PA [address] [place] [address] [email or web address] Breast screening Social History Tobacco Use Types Packs/Day Years [...] as of this encounter Visit Diagnoses Diagnosis Breast screening Breast screening, unspecified documented in this encounter Additional Health Concerns Infection Onset Date Last Indicated Resolved Time CoV-Risk 06/26/2019 06/27/2019 07/11/2019 1:23 AM EDT documented as of this encounter Care Teams Pole Climber Relationship Specialty Start Date End Date Esme Claudio MD [address] [place] [address] [email or web address] PCP - General Family Medicine 02/08/17 12/14/21 Roseann Lopez PA [address] [place] [address] [address] [place] [address] [email or web address] PCP - General Unknown Provider Specialty 12/15/21 Tiffanie Crow MD [address] [place] [address] [address] [place] [address] Historical LMR Provider 12/24/16 2 Destin Freed MD [address] [place] [phone] [email or web address] Historical LMR Provider 12/24/16 03/18/21 Alisia Velasquez MD [address] [place], [place] [address], [place] [address] Historical LMR Provider 12/24/16 Presley Bhandari MD [address] [place] [address] Historical LMR Provider 12/24/16 Ana Lilia Mclain PA-C [address] [place] [address] Orthopedics & Sports [facility], [place] [address] [email or web address] Historical LMR Provider 12/24/16 03/18/21 Esme Claudio MD [address] [place] [address] Historical LMR Provider 12/24/16 Neeraj Win MD [address] [facility], [address] [place] [address] Historical LMR Provider 12/24/16 03/18/21 Esme Aaron MD [address] [place] [address] Historical LMR Provider 12/24/16 2 Jose Carlos Katz MD [address] [place] [address] Orthopedics Sports [facility], [place] [address] [email or web address] Historical LMR Provider 12/24/16 2 Esme Claudio MD [address] [place] [address] [email or web address] Insurance Assigned Provider 07/12/18 10/15/20 Cullen Corrigan MD [address] [place] [address] [email or web address] Insurance Assigned Provider 10/15/20 06/17/21 Cullen Corrigan MD [address] [place] [address] [email or web address] Insurance Assigned Provider 07/14/22 09/15/22 Esme Claudio MD [address] [place] [address] [email or web address] Insurance Assigned Provider 06/15/23 11/16/23 documented as of this encounter Additional Source Comments The information contained in this document represents components of the legal health record. It is not the complete legal health record.[facility]
--- OUTSIDE RECORDS SUMMARY | 2024-12-08 16:17 | XMS_ITS | Clinical Summary ---
Author Organization [facility], Address [address] [place] [address] Phone Care Team Providers Care Art Preparator Name Role Phone Austin Rios PA-C Primary Care Provider [phone] Allergies Active Allergy Reactions Criticality Noted Date [...] abnormal finding of blood chemis try 06/07/2022 Immunizations Immunization Administration Dates Next Due Hep [...] [facility] [address] [place] [address] Remberto Fletcher MD [address] [place] [address] [place] [address] Health Maintenance Due Date Last Done Comments Breast Cancer Screening 1962 Pneumococcal Vaccine: 50+ Years (1 of 2 - PCV) 1981 Colorectal Cancer Screening: Annual FOBT 09/18/2011 Colorectal Cancer Screening: Colonoscopy 09/18/2011 Colorectal Cancer Screening: Sigmoidoscopy 09/18/2011 Influenza Vaccine (#1) 2024 Hepatitis B Vaccine Aged Out 01/23/1992, 05/23/1991, 03/24/1991 No longer eligible based on patient's age to complete this topic Insurance Comprehensive Benefits Care Teams Art Preparator Relationship Specialty Start Date End Date Austin Rios PA-C [address] [place] [address] PCP - General Physician Barrel Filler Head 02/27/24
--- OUTSIDE RECORDS SUMMARY | 2024-12-08 16:17 | XMS_ITS | Patient Health Record ---
Author Organization [facility] Address [address] [place] [address] Care Team Providers Care Pick Up Operator Name Role Phone Esme Claudio Primary Care Provider Austin Rios Unavailable [phone] Lizzeth Paul Unavailable [phone] Roseann Mulligan Unavailable [phone] Ernie Sun Unavailable Ness Robbins Unavailable Caleb Santana Unavailable [phone] Marya Paris Unavailable [phone] Tyler Bryant Unavailable [phone] Allergies Allergen (clinical drug ingredient) Drug/Non Drug Allergy documented on EMR Reaction Allergy Type Onset Date Status LATEX SENSITIVE (uncoded) when wearing gloves Allergy Active acetaminophen / oxycodone Percocet itchy mouth, rash Drug Allergy Active Results Component Value Reference Range Flag Notes COVID-19, RSV, FLU A/B PCR ( [address] [facility]) Reviewed date:01/21/2024 08:28:55 AM Interpretation: Performing Lab:NL2, [facility] [id number] [place] Notes/Report: Received Date: FASTING FASTING:UNKNOWN FASTING: UNKNOWN INFLUENZA A RNA NOT DETECTED NOT DETECTED N INFLUENZA B RNA NOT DETECTED NOT DETECTED N RSV RNA NOT DETECTED NOT DETECTED N SARS COV2 RNA NOT DETECTED NOT DETECTED N A Not Detected (negative) test result for [...] diagnosis and patient management decisions. Methodology: Reverse collector polymerase chain reaction (RT-PCR). Rapid Strep Reviewed date:01/16/2024 02:52:20 PM Interpretation:Negative Performing Lab: Notes/Report: Negative Streptococcus Group A Cultur e ([address]) Reviewed date:01/21/2024 08:29:15 AM Interpretation: Performing Lab:NL2, [place] [id number] [facility] [place] Notes/Report: Received Date: [id number] NON-FASTING FASTING:UNKNOWN FASTING: UNKNOWN STREPTOCOCCUS, GROUP A CULTURE SEE NOTE STREPTOCOCCUS, GROUP A CULTURE Micro Number: [id number] Test Status: Final Specimen Source: Throat Specimen Quality: Adequate Result: No group A Streptococcus isolated rapid Flu Reviewed date:01/16/2024 03:15:25 PM Interpretation:Negative Performing Lab: Notes/Report: Negative Influenza A neg Influenza B neg Rapid Strep Reviewed date:06/06/2024 04:59:10 PM Interpretation:Negative Performing Lab: Notes/Report: Negative RAPID STREP negative CT Heart W/O Dye Heber Eval Reviewed date:02/03/2024 05:54:19 PM Interpretation: Performing Lab: Notes/Report: CT Heart W/O Dye Heber Eval INDICATION: Reason: E78.5 HYPERLIPIDEMIA; Clinical Question(s): Other:. Female of age 63 years, race White COMPARISON: None TECHNIQUE: Coronary artery Calcium Scoring. After a localizing building code inspector image was obtained, an ECG-gated noncontrast exam was obtained of the heart in late diastole. The region of interest was limited to the heart in order to optimize image quality. Weight-based protocol using automatic tube modulation was used to optimize exposure parameters. A EQ works 64 scanner was used, with Agatston scoring performed using Ubookoo ([employer]) web-based software. This procedure is not being [...] Agatston coronary calcium score is 0. WSN: [id number] Ordering Physician: Ness Winkler Dictated By: Malia Ruelas MD Reason For Referral Reason for CPAP adjustments ; pt with known JACKY without proper supplies Diagnosis 1 JACKY (G47.33) Referral Organization [facility] actice Referring Provider First Name Roseann Referring Provider Last Name Ese Referring Provider [facility]ice Ref[facility] Provider [facility] Referred Provider Specialty SLEEP MEDICI NE General Notes Marya Catherine 06/2023 01:56:41 PM > Referral faxed to: [phone] Clinical Notes [facility] UPIN: NPI- Dr Anthony Velasquez, Provider , Address1: [address] [place] [address] [address], Address2: [facility] , [facility], Zip: [place], [address], , Referral Priority Routine Reason Needs Nephrology Con sult, 2nd HTN workup Diagnosis 1 HTN (I10) Ref[facility] Organization [facility] Referring Provider First Name Roseann Referring Provider Last Name Ese Referring Provider [facility] ctice Referred Provider [facility], [facility] Referred Provider Specialty Nephrology General Notes Marya Catherine 07/2023 07:21:55 AM > referral faxed to: [phone] Clinical Notes Provider Name: [facility], [facility], Address1: [address] [facility], Zip: [place], [address], , Referral Priority Routine Reason JACKY Diagnosis 1 JACKY (G47.33) Referral Organization [facility] JEANNIE Referring Provider First Name Austin Referring Provider Last Name Gabriel Referring Provider [facility] ctice Referred Provider [facility] SLE EP LAB General Notes Marya Catherine 03/12 01:09:47 PM > Referral faxed to: [phone] Clinical Notes Provider Name: [facility], Provider ID Number: , Provider UPIN: , Provider NPI: , Provider Facility: , Provider Speciality: , Address1: [address] [place] [address], Address2: , [facility], Zip: [place], [address], , Appt. Date/Time: , Referral Priority Routine Reason Joint pains, episodi c Diagnosis 1 Joint pains (M25.50) Referral Organization [facility] Referring Provider First Name Austin Referring Provider Last Name Gabriel Referring Provider [facility] ctice Referred Provider [facility], Rheumatology Referred Provider Specialty Rheumatology General Notes Austin Rios 025 01:54:55 PM >fax MGB ID note with referral, Marya Catherine 06/18/2024 12:12:46 PM > Referral faxed to: [phone] Clinical Notes Provider Name: [facility], Rheumatology, Provider ID Number: , Provider UPIN: , Provider NPI: , Provider Facility: , Provider Speciality: Rheumatology, Address1: [address] [place] [address] DrSunny, Address2: [place] [address], [facility], Zip: [place], [address], , Appt. Date/Time: , Referral Priority Routine Reason Vomiting, ED follow up Diagnosis 1 Nausea and/or vomiti ng (R11.2) Referral Organization [facility] Referring Provider First Name Austin Referring Provider Last Name Gabriel Referring Provider Speciality Family [facility] ctice Referred Provider [facility], Gastroenterology Referred Provider Specialty Gastroentero logy General Notes Marya Catherine 07/10 02:45:59 PM > referral faxed to: [phone] Clinical Notes Provider Name: [facility], Gastroenterology, Provider ID Number: , Provider UPIN: , Provider NPI: , Provider Facility: , Provider Speciality: Gastroenterology, Address1: [address], Address2: , [facility], Zip: [place], [address], , Appt. Date/Time: , Referral Priority Routine Reason For Edema, leg swell ing Diagnosis 1 Edema localized (R60 .0) Referral Organization [facility] Referring Provider First Name Austin Referring Provider Last Name Gabriel Referring Provider Speciality Family Pra ctice Referred Provider Ava Acosta ([place]) Referred Provider Specialty Vascular Constance maikel General Notes Marya Catherine 10/09 08:43:38 AM > REFERRAL FAXED TO: [phone] Clinical Notes Provider Name: Karla LeonJose Davenport , Provider , Provider Speciality: Vascular Surgery, Address1: [address] [place] [address], [facility], Zip: [place], [address], , Referral Priority Routine Medications Medication SIG (Take, Route, Frequency, Duration) Notes Start Date End Date Status Adderall XR 30 MG Capsule Extended Release 24 Hour 1 capsule in the morning Orally Once a day; Duration: 60 days 10/08/2024 Active DULoxetine HCl 60 MG Capsule Delayed Release Particles 1 capsule Orally Once a day; Duration: 60 days 10/08/2024 Active Flonase Allergy Relief 50 MCG/ACT Suspension 1 spray in each nostril Nasally Twice a day; Duration: 30 days 02/05/2024 Active Mupirocin 2 % Ointment 1 micah applied topically 3 times a day; Duration: 10 days As needed 03/01/2023 Active Fish Oil 2 capsules Orally once daily; Duration: 30 days Active Potassium Chloride ER 20 MEQ Tablet Extended Release 1 tablet with food Orally twice day; Duration: 30 days As needed 09/24/2024 Not-Taking/OK N Qvar RediHaler 80 MCG/ACT Aerosol Breath Activated 1 puff(s) inhaled 2 times a day; Duration: 90 days 06/11/2018 Active Levothyroxine Sodium 100 MCG Tablet 1 tab(s) orally once a day; Duration: 90 days Active Vitamin B Complex TAB 1 PO QD Active amLODIPine Besylate 10 MG Tablet 1 tablet Orally Once a day; Duration: 90 days Active Albuterol Sulfate HFA 108 (90 Base) MCG/ACT Aerosol Solution 2 puff(s) inhaled 4 times a day prn; Duration: 90 days prn 08/19/2017 Active Phenergan 12.5 MG Suppository 1 suppository as needed Rectal every 6 hrs; Duration: 30 days As needed 05/05/2024 Not-Taking/OK N Adderall 5 MG Tablet 1 tablet Orally once a day; Duration: 30 days sparingly only PRN 09/04/2024 Active Ondansetron 4 MG Tablet Disintegrating 1 tab(s) orally every 8 hours; Duration: 30 days As needed Not-Taking/OK N LORazepam 1 MG Tablet 1 tab(s) orally 1 times a day prn anxiety - sparing use; Duration: 30 days PRN 05/06/2024 Active Promethazine HCl 25 MG Suppository 1 suppository as needed Rectal every 6 hrs; Duration: 30 days As needed (Max 50mg per day) Max 50mg per day 05/01/2024 Not-Taking/OK N Naproxen 250 MG Tablet 1 tablet with food or milk as needed Orally every 12 hrs; Duration: 30 days As needed 03/30/2024 Active Cyclobenzaprine HCl 10 MG Tablet 1 tab(s) orally 3 times a day; Duration: 10 days As needed Active Spironolactone 50 MG Tablet 1 tablet Orally twice a day; Duration: 90 days 10/05/2024 Active Immunizations Vaccine Route Administration Date Status Comme nts yellow fever vaccine, history Unknown 02/25/2013 Administered vivotif (history) Unknown 02/08/2013 Administered Tdap Adacel,purchased IM Intramuscular 10/08/2011 Administered OFFICE PURCHAS ED TDAP >7 PURCHASED (ADACEL) IM Intramuscular 07/19/2021 Administered Td vaccine, state Unknown 06/29/2004 Administered SHINGRIX PURCHASED IM Intramuscular 07/19/2021 Administere d SHINGRIX PURCHASED IM Intramuscular 07/24/2022 Administere d PREVNAR 20 PURCHASED IM Intramuscular 03/30/2024 Administered Hepatitis B Vaccine; History Unknown 03/24/1991 Administered Hepatitis B Vaccine; History Unknown 05/23/1991 Administered Hepatitis B Vaccine; History Unknown 01/23/1992 Administered Hepatitis A adult, office purchased IM Intramuscular 01/22/2013 Administered Hep A Vaccine; History Unknown 03/28/2011 Administered H1N1 injection, history Unknown 12/28/2008 Administered Fluzone Vaccine; History Unknown 12/16/2008 Administered Fluzone P, PF, pre-filled IM Intramuscular 03/23/2016 Administered FLUBLOK PURCHASED IM Intramuscular 12/20/2021 Administered FLUBLOK PURCHASED IM Intramuscular 12/05/2023 Administered Flu Vaccine; History Unknown 12/10/2009 Administered pt states she recieved the flu vaccine at work at today's office visit Flu Vaccine; History Unknown 12/14/2010 Administered Flu Vaccine; History Unknown 12/14/2011 Administered Flu Vaccine; History Unknown 01/15/2013 Administered COVID-19 Vaccine (Moderna), History Unknown 03/26/2020 Administered COVID-19 Vaccine (Moderna), History Unknown 04/23/2020 Administered COVID-19 Vaccine (Moderna), History Unknown 01/15/2021 Administered COVID Vacc BIVALENT 12+ Pfizer IM Intramuscular 12/20/2021 Administered COVID VACC 19+ PFIZER PURCHASED IM Intramuscular 03/30/2024 Administered Social History Social History Social History Social Info Question Answer Notes Smoking: Former Smoker: Yes quit 11/2023 Additional Details Category Social Info Options Details Social History 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 Calcium Intake: Takes half dosage of calcium supplement daily, doesn't drink milk. Financial Probs: Some. fun-kayak/bike, read, concer ts etc. she has lots of friends fun-kayak/bike, read, concer ts etc. she has lots of friends fun-kayak/bike, read, concer ts etc. she has lots of friends fun-kayak/bike, read, concer ts etc. she has lots of friends fun-kayak/bike, read, concer ts etc. she has lots of friends fun-kayak/bike, read, concer ts etc. she has lots of friends fun-kayak/bike, read, concer ts etc. she has lots of friends fun-kayak/bike, read, concer ts etc. she has lots of friends fun-kayak/bike, read, concer ts etc. she has lots of friends fun-kayak/bike, read, concer ts etc. she has lots of friends fun-kayak/bike, read, concer ts etc. she has lots of friends Hobbies: none-kids' activities, reading, bike at times. Calcium Intake: Takes half dosage of calcium supplement daily, doesn't drink milk. Financial Probs: Some. fun-kayak/bike, read, concer ts etc. she has lots of friends fun-kayak/bike, read, concer ts etc. she has lots of friends fun-kayak/bike, read, concer ts etc. she has lots of friends fun-kayak/bike, read, concer ts etc. she has lots of friends fun-kayak/bike, read, concer ts etc. she has lots of friends fun-kayak/bike, read, concer ts etc. she has lots of friends fun-kayak/bike, read, concer ts etc. she has lots of friends fun-kayak/bike, read, concer ts etc. she has lots of friends fun-kayak/bike, read, concer ts etc. she has lots of friends fun-kayak/bike, read, concer ts etc. she has lots of friends fun-kayak/bike, read, concer ts etc. she has lots of friends fun-kayak/bike, read, concer ts etc. she has lots of friends fun-kayak/bike, read, concer ts etc. she has lots of friends fun-kayak/bike, read, concer ts etc. she has lots of friends Hobbies: none-kids' activities, reading, bike at times. Calcium Intake: Takes half dosage of calcium supplement daily, doesn't drink milk. Financial Probs: Some. fun-kayak/bike, read, concer ts etc. she has lots of friends fun-kayak/bike, read, concer ts etc. she has lots of friends fun-kayak/bike, read, concer ts etc. she has lots of friends fun-kayak/bike, read, concer ts etc. she has lots of friends fun-kayak/bike, read, concer ts etc. she has lots of friends fun-kayak/bike, read, concer ts etc. she has lots of friends fun-kayak/bike, read, concer ts etc. she has lots of friends fun-kayak/bike, read, concer ts etc. she has lots of friends fun-kayak/bike, read, concer ts etc. she has lots of friends fun-kayak/bike, read, concer ts etc. she has lots of friends fun-kayak/bike, read, concer ts etc. she has lots of friends fun-kayak/bike, read, concer ts etc. she has lots of friends fun-kayak/bike, read, concer ts etc. she has lots of friends fun-kayak/bike, read, concer ts etc. she has lots of friends fun-kayak/bike, read, concer ts etc. she has lots of friends fun-kayak/bike, read, concer ts etc. she has lots of friends fun-kayak/bike, read, concer ts etc. she has lots of friends fun-kayak/bike, read, concer ts etc. she has lots of friends fun-kayak/bike, read, concerts etc. she has lots of friends fun-kayak/bike, read, concer ts etc. she has lots of friends fun-kayak/bike, read, concer ts etc. she has lots of friends fun-kayak/bike, read, concer ts etc. she has lots of friends fun-kayak/bike, read, concer ts etc. she has lots of friends fun-kayak/bike, read, concer ts etc. she has lots of friends fun-kayak/bike, read, concer ts etc. she has lots of friends Hobbies: none-kids' activities, reading, bike at times. Calcium Intake: Takes half dosage of calcium supplement daily, doesn't drink milk. Financial Probs: Some. fun-kayak/bike, read, concer ts etc. she has lots of friends fun-kayak/bike, read, concer ts etc. she has lots of friends Hobbies: none-kids' activities, reading, bike at times. Calcium Intake: Takes half dosage of calcium supplement daily, doesn't drink milk. Financial Probs: Some. fun-kayak/bike, read, concer ts etc. she has lots of friends fun-kayak/bike, read, concer ts etc. she has lots of friends fun-kayak/bike, read, concer ts etc. she has lots of friends fun-kayak/bike, read, concer ts etc. she has lots of friends fun-kayak/bike, read, concer ts etc. she has lots of friends fun-kayak/bike, read, concer ts etc. she has lots of friends fun-kayak/bike, read, concer ts etc. she has lots of friends fun-kayak/bike, read, concer ts etc. she has lots of friends fun-kayak/bike, read, concer ts etc. she has lots of friends fun-kayak/bike, read, concer ts etc. she has lots of friends fun-kayak/bike, read, concer ts etc. she has lots of friends fun-kayak/bike, read, concer ts etc. she has lots of friends Hobbies: none-kids' activities, reading, bike at times. Calcium Intake: Takes half dosage of calcium supplement daily, doesn't drink milk. Financial Probs: Some. Hobbies: none-kids' activities, reading, bike at times. Calcium Intake: Takes half dosage of calcium supplement daily, doesn't drink milk. Financial Probs: Some. Hobbies: none-kids' activities, reading, bike at times. Calcium Intake: Takes half dosage of calcium supplement daily, doesn't drink milk. Financial Probs: Some. fun-kayak/bike, read, concer ts etc. she has lots of friends Hobbies: none-kids' activities, reading, bike at times. Calcium Intake: Takes half dosage of calcium supplement daily, doesn't drink milk. Financial Probs: Some. Hobbies: none-kids' activities, reading, bike at times. Calcium Intake: Takes half dosage of calcium supplement daily, doesn't drink milk. Financial Probs: Some. Hobbies: none-kids' activities, reading, bike at times. Calcium Intake: Takes half dosage of calcium supplement daily, doesn't drink milk. Financial Probs: Some. Hobbies: none-kids' activities, reading, bike at times. Calcium Intake: Takes half dosage of calcium supplement daily, doesn't drink milk. Financial Probs: Some. Hobbies: none-kids' activities, reading, bike at times. Calcium Intake: Takes half dosage of calcium supplement daily, doesn't drink milk. Financial Probs: Some. fun-kayak/bike, read, concer ts etc. she has lots of friends fun-kayak/bike, read, concer ts etc. she has lots of friends Hobbies: none-kids' activities, reading, bike at times. Calcium Intake: Takes half dosage of calcium supplement daily, doesn't drink milk. Financial Probs: Some. fun-kayak/bike, read, concer ts etc. she has lots of friends fun-kayak/bike, read, concer ts etc. she has lots of friends Hobbies: none-kids' activities, reading, bike at times. Calcium Intake: Takes half dosage of calcium supplement daily, doesn't drink milk. Financial Probs: Some. fun-kayak/bike, read, concer ts etc. she has lots of friends Hobbies: none-kids' activities, reading, bike at times. Calcium Intake: Takes half dosage of calcium supplement daily, doesn't drink milk. Financial Probs: Some. Hobbies: none-kids' activities, reading, bike at times. Calcium Intake: Takes half dosage of calcium supplement daily, doesn't drink milk. Financial Probs: Some. Hobbies: none-kids' activities, reading, bike at times. Calcium Intake: Takes half dosage of calcium supplement daily, doesn't drink milk. Financial Probs: Some. Hobbies: none-kids' activities, reading, bike at times. Calcium Intake: Takes half dosage of calcium supplement daily, doesn't drink milk. Financial Probs: Some. fun-kayak/bike, read, concer ts etc. she has lots of friends fun-kayak/bike, read, concer ts etc. she has lots of friends Hobbies: none-kids' activities, reading, bike at times. Calcium Intake: Takes half dosage of calcium supplement daily, doesn't drink milk. Financial Probs: Some. fun-kayak/bike, read, concer ts etc. she has lots of friends fun-kayak/bike, read, concer ts etc. she has lots of friends fun-kayak/bike, read, concer ts etc. she has lots of friends Hobbies: none-kids' activities, reading, bike at times. Calcium Intake: Takes half dosage of calcium supplement daily, doesn't drink milk. Financial Probs: Some. fun-kayak/bike, read, concer ts etc. she has lots of friends fun-kayak/bike, read, concer ts etc. she has lots of friends fun-kayak/bike, read, concer ts etc. she has lots of friends fun-kayak/bike, read, concer ts etc. she has lots of friends Hobbies: none-kids' activities, reading, bike at times. Calcium Intake: Takes half dosage of calcium supplement daily, doesn't drink milk. Financial Probs: Some. Hobbies: none-kids' activities, reading, bike at times. Calcium Intake: Takes half dosage of calcium supplement daily, doesn't drink milk. Financial Probs: Some. Hobbies: none-kids' activities, reading, bike at times. Calcium Intake: Takes half dosage of calcium supplement daily, doesn't drink milk. Financial Probs: Some. Hobbies: none-kids' activities, reading, bike at times. Calcium Intake: Takes half dosage of calcium supplement daily, doesn't drink milk. Financial Probs: Some. fun-kayak/bike, read, concer ts etc. she has lots of friends fun-kayak/bike, read, concer ts etc. she has lots of friends Hobbies: none-kids' activities, reading, bike at times. Calcium Intake: Takes half dosage of calcium supplement daily, doesn't drink milk. Financial Probs: Some. Hobbies: none-kids' activities, reading, bike at times. Calcium Intake: Takes half dosage of calcium supplement daily, doesn't drink milk. Financial Probs: Some. fun-kayak/bike, read, concer ts etc. she has lots of friends fun-kayak/bike, read, concer ts etc. she has lots of friends fun-kayak/bike, read, concer ts etc. she has lots of friends Hobbies: none-kids' activities, reading, bike at times. Calcium Intake: Takes half dosage of calcium supplement daily, doesn't drink milk. Financial Probs: Some. fun-kayak/bike, read, concer ts etc. she has lots of friends Hobbies: none-kids' activities, reading, bike at times. Calcium Intake: Takes half dosage of calcium supplement daily, doesn't drink milk. Financial Probs: Some. fun-kayak/bike, read, concer ts etc. she has lots of friends Hobbies: none-kids' activities, reading, bike at times. Calcium Intake: Takes half dosage of calcium supplement daily, doesn't drink milk. Financial Probs: Some. Hobbies: none-kids' activities, reading, bike at times. Calcium Intake: Takes half dosage of calcium supplement daily, doesn't drink milk. Financial Probs: Some. Hobbies: none-kids' activities, reading, bike at times. Calcium Intake: Takes half dosage of calcium supplement daily, doesn't drink milk. Financial Probs: Some. Problems Problem Type SNOMED Code ICD Code Onset Dates Problem Status W/U Status Risk Notes Problem Anxiety (finding) (41947276) Anxiety (unspecified) (F41.9) Active confirmed Problem Dysphagia (27954168) Dysphagia (R13.10) Active confirmed Problem Hyperlipidemia (13325044) Hyperlipidemia, unspecified (E78.5) Active confirmed Problem Neck pain (54225847) Pain Neck (M54.2) Active confirmed Problem Reactions to severe stress, other (F43.8) Active confirmed Problem Obstructive sleep apnea syndrome (43359361) JACKY (G47.33) Active confirmed Problem Allergic rhinitis (58140092) Allergic rhinitis, Other (J30.89) Active confirmed Problem Mild intermittent asthma (415690940) Asthma Mild intermittent, uncomplicated (J45.20) Active confirmed Problem Impaired fasting glucose (177265853) Impaired fasting glucose (R73.01) Active confirmed Problem C-reactive protein abnormal (493626626) Elevated C-reactive protein (CRP) (R79.82) Active confirmed Problem Attention deficit hyperactivity disorder (128191897) ADHD, other type (F90.8) Active confirmed Problem Attention deficit hyperactivity disorder ([id number]) ADHD, unspecified type (F90.9) Active confirmed Problem Vitamin D deficiency (70147770) Vitamin D deficiency, unspecified (E55.9) Active confirmed Problem Fatigue (23324286) Fatigue (R53.83) Active conf irmed Problem Hypertension (35091442) HTN (I10) Active confirmed Problem Hypothyroidism (82755262) Hypothyroidism, unspecified (E03.9) Active confirmed Problem Hot flashes (268600762) HOT FLASHES (N95.8) Active confirmed Problem Muscle pain (86681095) Myalgia, unspecified site (M79.10) Active confirmed Problem Cyclical vomiting syndrome (disorder) (46365208) Cyclical vomiting syndrome unrelated to migraine (R11.15) Active confirmed Vital Signs Temperature 96.5 degrees Fahrenheit 11/12/2024 pt s ays weight this morning was 187.1. Pt declines IH weight today. Oximetry 96 11/12/2024 pt says weight this morning was 187.1. Pt declines IH weight today. Blood pressure diastolic 70 mm Hg 11/12/2024 pt says weight this morning was 187.1. Pt declines IH weight today. Height 59.75 in 11/12/2024 pt says weight this morning was 187.1. Pt declines IH weight today. Blood pressure systolic 122 mm Hg 11/12/2024 pt s ays weight this morning was 187.1. Pt declines IH weight today. Weight 187 lbs 11/12/2024 pt says weight this morning was 187.1. Pt declines IH weight today. BMI 36.82 kg/m2 11/12/2024 pt says weight this morning was 187.1. Pt declines IH weight today. Procedures Procedure Date Ordered Date Performed Result Body Sit e EKG 09/23/2024 N/A Encounters Encounter Location Date Provider Diagnosis [facility] [address] [place] [address] 12/12/2023 Ness Robbins HTN I10 [facility] [address] [place] [address] 12/18/2023 Roseann Mulligan HTN I10 and Fatigue R53.83 [facility] [address] [place] [address] 12/23/2023 Roseann Mulligan [facility] [address] [place] [address] 01/01/2024 Marya Paris [facility] [address] [place] [address] 01/08/2024 Ness Robbins [facility] [address] [place] [address] 01/08/2024 Ness Robbins [facility] [address] [place] [address] 01/08/2024 Ness Robbins [facility] [address] [place] [address] 01/09/2024 Ness Robbins ADHD, unspecified type F90.9 [facility] [address] [place] [address] 01/13/2024 Ness Robbins [facility] [address] [place] [address] 01/16/2024 Austin Rios [facility] [address] [place] [address] 02/21/2024 Austin Rios Myalgia, unspecified site M79.10 [facility] [address] [place] [address] 02/28/2024 Esme Claudio [facility] [address] [place] [address] 03/30/2024 Esme Claudio [facility] [address] [place] [address] 05/05/2024 Lizzeth Paul Anxiety (unspecified ) F41.9 [facility] [address] [place] [address] 05/10/2024 Esme Claudio [facility] [address] [place] [address] 05/10/2024 Austin Rios [facility] [address] [place] [address] 05/21/2024 Austin Rios [facility] [address] [place] [address] 06/23/2024 Esme Claudio [facility] [address] [place] [address] 07/30/2024 Esme Claudio [facility] [address] [place] [address] 09/22/2024 Austin Rios [facility] [address] [place] [address] 09/22/2024 Caleb Santana [facility] [address] [place] [address] 09/24/2024 Austin Rios Hypokalemia E87.6 [facility] [address] [place] [address] 09/24/2024 Austin Rios Hypokalemia E87.6 [facility] [address] [place] [address] 09/28/2024 Austin Rios Hypokalemia E87.6 [facility] [address] [place] [address] 10/05/2024 Austin Rios Impaired fasting glucose R73.01 and Family history of ischemic heart disease and other diseases of the circulatory system Z82.49 [facility] [address] [place] [address] 10/08/2024 Austin Rios Fatigue R53.83 and ADHD, unspecified type F90.9 [facility] [address] [place] [address] 12/20/2023 Ness Robbins [facility] [address] [place] [address] 12/20/2023 Ness Robbins [facility] [address] [place] [address] 12/20/2023 Ness Robbins HTN I10 [facility] [address] [place] [address] 02/12/2024 Austin Rios Hypothyroidism, unspecified E03.9 ; HTN I10 ; Anxiety (unspecified) F41.9 ; Myalgia, unspecified site M79.10 and Allergic rhinitis, Other J30.89 [facility] [address] [place] [address] 02/25/2024 Austin Rios [facility] [address] [place] [address] 04/14/2024 Marya Paris Nausea R11.0 [facility] [address] [place] [address] 05/18/2024 Austin Rios [facility] [address] [place] [address] 05/18/2024 Esme Claudio [facility] [address] [place] [address] 05/19/2024 Lizzeth Paul [facility] [address] [place] [address] 07/23/2024 Austin Rios HTN I10 and ADHD, unspecified type F90.9 [facility] [address] [place] [address] 07/23/2024 Austin Rios [facility] [address] [place] [address] 09/01/2024 Asutin Rios ADHD, unspecified type F90.9 [facility] [address] [place] [address] 09/16/2024 Austin Rios [facility] [address] [place] [address] 09/16/2024 Austin Rios [facility] [address] [place] [address] 2024 Austin Rios [facility] [address] [place] [address] 11/25/2024 Austin Rios Edema localized R60. 0 [facility] [address] [place] [address] 03/30/2024 Austin Rios Adult physical MADDY L Z00.00 ; Vitamin D deficiency, unspecified E55.9 ; Hypothyroidism E03.9 ; HTN I10 ; Encounter for immunization Z23 ; Back pain, other M54.89 ; JACKY G47.33 ; Hyperlipidemia, unspecified E78.5 and Hypokalemia E87.6 [facility] [address] [place] [address] 11/12/2024 Austin Rios Nausea and/or vomiting R11.2 ; HTN I10 and Edema localized R60.[address] [address] 05/05/2024 Lizzeth Paul HTN I10 ; Nausea and/or vomiting R11.2 ; Cyclical vomiting syndrome unrelated to migraine R11.15 ; Impaired fasting glucose R73.01 ; Fatigue R53.83 ; Elevated C-reactive protein (CRP) R79.82 and Hyperlipidemia, unspecified E78.[address] [address] 05/21/2024 Austin Rios Nausea and/or vomiting R11.2 and Hypokalemia E87.6 [facility] [address] [place] [address] 06/15/2024 Austin Rios Nausea and/or vomiting R11.2 ; HTN I10 ; Joint pains M25.50 and ADHD, unspecified type F90.9 [facility] [address] [place] [address] 09/21/2024 Austin Rios Vomiting unspecified R11.10 ; Nausea R11.0 ; Fatigue R53.83 and ADHD, other type F90.8 [facility] [address] [place] [address] 09/28/2024 Austin Rios Hypokalemia E87.6 ; Vomiting unspecified R11.10 ; HTN I10 and Fatigue R53.83 [facility] [address] [place] [address] 10/05/2024 Austin Rios Hypokalemia E87.6 ; Vomiting unspecified R11.10 ; HTN I10 ; Edema localized R60.0 and Shortness of breath R06.[address] [address] 10/15/2024 Austin Rios Hypokalemia E87.6 ; Edema localized R60.0 and HTN I10 [facility] [address] [place] [address] 01/01/2024 Marya Paris HTN I10 and ADHD, unspecified type F90.9 [facility] [address] [place] [address] 01/08/2024 Ness Robbins Hyperlipidemia, unspecified E78.5 ; Dyspnea, unspecified R06.00 ; Elevated C-reactive protein (CRP) R79.82 ; HTN I10 ; Asthma Mild intermittent, uncomplicated J45.20 ; ADHD, unspecified type F90.9 and Prediabetes R73.[address] [address] 01/22/2024 Austin Gabriel Asthma exacerbation, unspecified type J45.901 and Cough, unspecified R05.9 [facility] [address] [place] [address] 02/05/2024 Ness Itzel Hyperlipidemia, unspecified E78.5 ; HTN I10 ; Hypothyroidism, unspecified E03.9 ; Allergic rhinitis, Other J30.89 ; Anxiety (unspecified) F41.9 ; Myalgia, unspecified site M79.10 ; Elevated C-reactive protein (CRP) R79.82 and Prediabetes R73.[address] [address] 01/16/2024 Austin Gabriel Cough, unspecified R05.9 ; Asthma exacerbation, unspecified type J45.901 and Sore throat J02.9 [facility] [address] [place] [address] 09/14/2024 Caleb Corriveau Fever NOS R50.9 and Nausea R11.0 [facility] [address] [place] [address] 09/23/2024 Ernie Damon Corinne Hypokalemia E87.6 ; HTN I10 and Nausea R11.0 [facility] [address] [place] [address] 06/05/2024 Esme Claudio Sore throat J02.9 an d Ned ker inflamed L82.0 [facility] [address] [place] [address] 04/13/2024 Marya Paris Fever, unspecified R50.9 ; Pain abd Generalized R10.84 ; Nausea R11.0 ; Vomiting, unspecified R11.10 and Constipation, unspecified K59.00 [facility] [address] [place] [address] 03/13/2024 Esme Claudio Pain arm, left upper M79.622 and Pain arm, right upper M79.621 [facility] [address] [place] [address] 01/03/2024 Esme Shanon Pain hand, left M79.642 ; Pain hand, right M79.641 ; Pain Neck M54.2 and Pain back M54.89 [facility] [address] [place] [address] 01/13/2024 Ness Robbins JACKY G47.33 [facility] [address] [place] [address] 09/24/2024 Austin Rios Hypokalemia E87.6 an d Nausea R11.[address] [address] 08/14/2024 Caleb Corriveau Vomiting unspecified R11.10 and Nausea R11.0 [facility] [address] [place] [address] 12/19/2023 Haiying Thorndale Pain Neck M54.2 ; Pain wrist, left M25.532 ; Pain wrist, right M25.531 ; Pain hip, left M25.552 and Pain hip, right M25.551 [facility] [address] [place] [address] 12/26/2023 Haiying Manny Pain Neck M54.2 ; Pain wrist, left M25.532 ; Pain wrist, right M25.531 ; Pain hip, left M25.552 and Pain hip, right M25.551 [facility] [address] [place] [address] 01/08/2024 Haiying Thorndale Pain Neck M54.2 ; Pain wrist, left M25.532 ; Pain wrist, right M25.531 ; Pain hip, left M25.552 and Pain hip, right M25.551 [facility] [address] [place] [address] 05/13/2024 Haiying Thorndale Pain Neck M54.2 ; Pain wrist, left M25.532 and Pain wrist, right M25.531 [facility] [address] [place] [address] 05/21/2024 Haiying Thorndale Pain Neck M54.2 ; Pain wrist, left M25.532 and Pain wrist, right M25.531 [facility] [address] [place] [address] 06/25/2024 Haiying Manny Pain Neck M54.2 ; Pain wrist, left M25.532 and Pain wrist, right M25.531 [facility] [address] [place] [address] 07/02/2024 Haiying Manny Pain wrist, left M25.532 ; Other low back pain M54.59 ; Pain Neck M54.2 and Pain wrist, right M25.531 [facility] [address] [place] [address] 02/13/2024 Haiying Thorndale Pain Neck M54.2 ; Pain wrist, left M25.532 ; Pain wrist, right M25.531 ; Pain hip, left M25.552 ; Pain hip, right M25.551 ; Pain foot, left M79.672 and Pain foot, right M79.671 [facility] [address] [place] [address] 02/20/2024 Haiying Manny No Show or Late Cancel NS.LTCX Assessments Encounter Date Diagnosis (ICD Code) Assessment Notes Treatment Notes Treatment Clinical Notes Section Notes 09/28/2024 Hypokalemia (ICD-10 - E87.6) 10/05/2024 Impaired fasting glucose (ICD-10 - R73.01) 10/05/2024 Family history of ischemic heart disease and other diseases of the circulatory system (ICD-10 - Z82.49) 10/08/2024 Fatigue (ICD-10 - R53.83) 12/18/2023 HTN (ICD-10 - I10) 01/09/2024 ADHD, unspecified type (ICD-10 - F90.9) 02/21/2024 Myalgia, unspecified site (ICD-10 - M79.10) 05/05/2024 Anxiety (unspecified) (ICD-10 - F41.9) 09/24/2024 Hypokalemia (ICD-10 - E87.6) 09/24/2024 Hypokalemia (ICD-10 - E87.6) 12/20/2023 HTN (ICD-10 - I10) 02/12/2024 Hypothyroidism, unspecified (ICD-10 - E03.9) 04/14/2024 Nausea (ICD-10 - R11.0) 07/23/2024 HTN (ICD-10 - I10) 09/01/2024 ADHD, unspecified type (ICD-10 - F90.9) 11/25/2024 Edema localized (ICD-10 - R60.0) 02/13/2024 Pain Neck (ICD-10 - M54.2) see pain wrist TCM Pattern: 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 TCM treatment principles : scatter the cold, disperse wind and dampness in the body. tonify Qi, move Blood and Qi 02/13/2024 Pain wrist, left (ICD-10 - M25.532) Treatment/Needle Set 1:Points: Bi LV3, KD3, HT6, HT1, KD22 CV15, 16, 12 [place] checking pulse while needling LV3, KD3, HT1,CV15 and manipulating the needles until the pulse calm down35 minutes face to face with patient for set 1 Treatment/Needle Set 2:Points: Bi ST28, LI4, LV14,GB26, SP21 CV3,4, 6,9,23, YIN MEDEROS 16 needles 10 minutes face to face with patient for set 2 [place] were retained for 45 minutes _# of needles inserted:28_# of needles withdrawn: 28 Adjunct techniques used: 1. infrared therapy:1) [employer] Soft Mesh Far Infrared Heating Pad with Tatiana & Tourmaline Gemstones on the tableCupping/Sliding cupping on: none Manual Tui Na on: NONE Gua Sha on: none Patient tolerated the procedure well. 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 TCM treatment principles : scatter the cold, disperse wind and dampness in the body. tonify Qi, move Blood and Qi 02/20/2024 No Show or Late Cancel (ICD-10 - NS.LTCX) 05/13/2024 Pain Neck (ICD-10 - M54.2) see pain wrist TCM Pattern: 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 TCM treatment principles : scatter the cold, disperse wind and dampness in the body. tonify Qi, move Blood and Qi 05/13/2024 Pain wrist, left (ICD-10 - M25.532) Treatment/Needle Set 1:Points: Bi SP4, KD3, ST36,40, GB34, BL39, SP9 14 [place] 20 minutes face to face with patient for set 1 Treatment/Needle Set 2:Points: Bi raji ca, LI5, TW5, LI11 14 needles 15 minutes face to face with patient for set 2 [place] were retained for 45 minutes _# of [...] TCM Pattern: 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 TCM treatment principles : scatter the cold, disperse wind and dampness in the body. tonify Qi, move Blood and Qi 05/21/2024 Pain Neck (ICD-10 - M54.2) see pain wrist TCM Pattern: 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 TCM treatment principles : scatter the cold, disperse wind and dampness in the body. tonify Qi, move Blood and Qi 06/25/2024 Pain Neck (ICD-10 - M54.2) see pain wrist TCM Pattern: 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 TCM treatment principles : scatter the cold, disperse wind and dampness in the body. tonify Qi, move Blood and Qi 07/02/2024 Pain wrist, left (ICD-10 - M25.532) see above TCM Pattern: 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 TCM treatment principles : scatter the cold, disperse wind and dampness in the body. tonify Qi, move Blood and Qi 07/02/2024 Other low back pain (ICD-10 - M54.59) Treatment/Needle Set 1:Points: Ba susu, Bi Khari esau, BL13, KEYLA WYNN T2,1,C7, BL10, AN SARA 20 [place] 20 minutes face to face with patient for set 1 Treatment/Needle Set 2:Points:L LI5, Ling gu, Da abran, TW5, 1 Needle on thenar eminence crease near wrist, R raji ca (4 needles), 9 needles 15 minutes face to face with patient for set 2 [place] were retained for 45 minutes _# of needles inserted:29_# of needles withdrawn: 29 Adjunct techniques used: 1. infrared therapy:1) [employer] Soft Mesh Far Infrared Heating Pad with Tatiana & Tourmaline Gemstones on the tableCupping/Sliding cupping on: wet cupping on Bi BL25, 17, L BL12 area where has spider veins before any needling Manual Tui Na on: NONE Gua Sha on: nonePatient tolerated the procedure well. 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 TCM treatment principles : scatter the cold, disperse wind and dampness in the body. tonify Qi, move Blood and Qi 11/12/2024 Nausea and/or vomiting (ICD-10 - R11.2) Has recently had period of stability with only occasional mild nausea. No severe vomiting episodes. He has been awaiting GI consult and its coming up at end of this month now. 11/12/2024 HTN (ICD-10 - I10) Chronic Condition stable and controlled. continue same plan with current medication and scheduled reassessment, tolerating medications well 12/19/2023 Pain Neck (ICD-10 - M54.2) see pain wrist TCM Pattern: 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 TCM treatment principles : scatter the cold, disperse wind and dampness in the body. tonify Qi, move Blood and Qi 01/01/2024 ADHD, unspecified type (ICD-10 - F90.9) Will send Strattera 25mg 1 capsule twice a day 01/01/2024 HTN (ICD-10 - I10) will increase [...] attack (myocardial infarction), stroke, and kidney failure. https://www.heart.org /en/health-topics/hig h-hugvq-lxohjvtc/heal ix-uawhfcu-akpt-high- blood-pressure https://www.[employer]/diseases-condit ions/ijkz-kopfl-xarwf ure/in-depth/high-blo od-pressure/art-... Eat plenty of fruits, vegetables, whole grains, fish, and low-fat dairy. Studies show high blood pressure can be lowered and prevented with the DASH diet. This diet is low in sodium and high in potassium, magnesium, calcium, protein, and fiber. https://www.[employer]/healthy-lifesty le/sjludlpfu-qad-ugbr thy-eating/in-depth/d kim-diet/art-200... https://www.[employer]/healthy-lifesty le/pjnfchzew-kyh-jsst thy-eating/in-depth/d kim-diet/art-200... Low blood pressure, also known as hypotension, can have a number of symptoms. If these occur, call your pcp. Dizziness or lightheadedness Blurry vision Fainting Confusion Nausea or vomiting Weakness Sleepiness Headache Neck or back pain Heart palpitations 12/19/2023 Pain wrist, left (ICD-10 - M25.532) Treatment/Needle Set 1:Points: 2 groups EA: [id number] Bi KD3, SP6, 8 10 Rhbfhmr53 minutes face to face with patient for [...] TCM Pattern: 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 TCM treatment principles : scatter the cold, disperse wind and dampness in the body. tonify Qi, move Blood and Qi 01/03/2024 Pain hand, left (ICD-10 - M79.642) [...] = 6.1% LDL 160 Per the 2013 [place] [employer]/[place] [employer] (ACC/AHA) guideline on the management of blood cholesterol, treatment with ogovifqi-tg-zdot intensity statin therapy is recommended for individuals with an estimated 10-year CVD risk > or = to 7.5 percent. Per the 2013 [place] [employer]/[place] [employer] (ACC/AHA) guideline on the treatment [...] TCM Pattern: 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 TCM treatment principles : scatter the cold, disperse wind and dampness [...] disease, heart failure and cardiac arrhythmias. 01/16/2024 Asthma exacerbation, unspecified type (ICD-10 - [...] days, call back sooner if any questions/concerns 01/16/2024 Cough, unspecified (ICD-10 - R05.9) see above 01/22/2024 Asthma exacerbation, unspecified type (ICD-10 - [...] PRN red flag s/sx. 03/13/2024 Pain arm, right upper (ICD-10 - M79.621) 03/13/2024 Pain arm, left upper (ICD-10 - [...] including any new numbness/tingling or new weakness. 03/30/2024 Vitamin D deficiency, unspecified (ICD-10 - E55.9) 03/30/2024 Adult physical NORMAL (ICD-10 - Z00.00) see below 04/13/2024 Pain abd Generalized (ICD-10 - R10.84) -If worsens at all, Go to the emergency room. -Lab and Xray order sent to [facility] and pt's email- ML 04/13/2024 Fever, unspecified (ICD-10 - R50.9) -advised to use Tylenol 1g every eight hours scheduled for the fever and discomfort 05/05/2024 Nausea and/or vomiting (ICD-10 - R11.2) 05/21/2024 Nausea and/or vomiting (ICD-10 - R11.2) Ongoing , episodic issue. Very disruptive to her daily life and ability to work. Reports prior work ups including GI and infectious disease consults. Also had rheumatology referral but they wouldnt see her based on symptoms. Has lab orders from [facility] at prior visit for ROSS and rhuem related assessment. Still no GI records, re-requested these as just starting to work with patient after PCP left and will review work up this far. Awaiting GI consult in July thru [facility] now. No current symptoms Completed intermittent FMLA ppw today 05/21/2024 Hypokalemia (ICD-10 - E87.6) Notes prone to low potassium when she gets her GI epsidoes and sweating, continue to monitor, see above. Has close follow up scheduled. Call back sooner as needed and return to ED if severe symptoms 06/05/2024 Ned ker inflamed (ICD-10 - L82.0) cryo x 3 w instructions 06/05/2024 Sore throat (ICD-10 - J02.9) tnder AC LN andsore throat Patient instructed on indications for use of new medications, proper administration, and potential side effects. 06/15/2024 Nausea and/or vomiting (ICD-10 - R11.2) [...] by prior GI note. Patient will see [facility] GI next month for consult and will discuss this and possible MRA further with GI specialist Also refer to rheumatology per ID recommendation as noted below 05/05/2024 HTN (ICD-10 - I10) 06/15/2024 HTN (ICD-10 - I10) Restart the HCTZ , readings have been very good lately but higher today likely due to not taking medication and increased stress, noticed issue with car earlier today. Has nephrology appt next week. Follow up closely. 08/14/2024 Vomiting unspecified (ICD-10 - R11.10) -Discussed sx most consistent w/ viral gastroenteritis. -Educated about likely contagious GI bug, hygiene to help prevent spreading it, keeping fluid intake strong enough to avoid dehydration, s/s dehydration which would need to be evaluated, and BRAT diet for when any appetite starts to return. Rec gilberto candy/tea. -Return for reevaluation if not resolving by early next week or if any worsening sx come sooner such as abd pain worsening, fever, diarrhea, etc. -Will send in work note pt prn if she requests. -Patient is verbalizing good understanding of the plan and is agreeable. 08/14/2024 Nausea (ICD-10 - R11.0) 09/14/2024 Fever NOS (ICD-10 - R50.9) -Unclear etiology. Possible viral GI. Reports multiple episodes of similar sx many times over the last few years, may be underlying GI issues. -No red flags. Abd nontender, vitals stable, afebrile. -Will order labs. Offered zofran, pt defers as she has tried and it is not helpful. Reviewed other anti nausea options OTC. Discussed supportive care, fluids more important than solids, electrolytes, BRAT diet. -Advised f/up later this week if sx ongoing. Should consider PCP f/up as well given chronic on/off nature of sx. -Pt made aware of strict ED precautions and s/sx to contact us. -Pt verbalizes good understanding. 09/14/2024 Nausea (ICD-10 - R11.0) 09/21/2024 Vomiting unspecified (ICD-10 - R11.10) Symptoms improving but this is the longest one of her episodes have lasted with nausea, vomiting, dry heaving. Now advancing diet as tolerated. [facility] now awaiting [facility] GI consult, appt in november , and also rheumatology consult pending. She will go for labs today. Aware of red flag symptoms to seek emergent care with , close f/u as scheduled or sooner as needed. 09/21/2024 Nausea (ICD-10 - R11.0) see above, FMLA ppw completed today 09/23/2024 Hypokalemia (ICD-10 - E87.6) Hydrochlorothiazide on hold due to hypokalemia. Advised to continue a potassium-rich diet, and supplement needs will be reviewed if necessary. Recheck potassium and magnesium levels via BMP to avoid over-correction of sodium. Labs to be drawn tomorrow, and results will be reviewed to determine further action. Discussed with Dr. Marya Paris. pt took several K+ doses of unknown amount, will just hold htz and consider meds at f/u or if still signif low - Follow-Up: Patient will come in for a follow-up on Saturday, and lab results will be reviewed. She will send lab results as soon as available and will be contacted for further action if needed. Recommended she f/u or sat, but pt declined, but did agree to any necessary f/u based on lab results. - Acupuncture: Encouraged to resume acupuncture treatments and discuss nausea issues with Tyler. 09/23/2024 HTN (ICD-10 - I10) Continue Cozaar, amlodipine as previously prescribed. - Electrolyte and Blood Pressure Management: Discontinue hydrochlorothiazide. consider spironolactone, a potassium-sparing diuretic, to manage potassium levels in the future if decision is made to restart hydrochlorothiazide after levels stabalize. 09/24/2024 Hypokalemia (ICD-10 - E87.6) K+ remains low, given her past hx suspect this is secondary to the recent GI symptoms. These symptoms are now improving, appetite increasing. 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 Therefore if level not improving or if any worsening on labs or if any new symptoms as reviewed need to go immediately to ED. Patient with good understanding and agreement with plan. Discussed case with Dr Corrigan. 09/28/2024 Vomiting unspecified (ICD-10 - R11.10) none in past week now, feeling better, see above 09/28/2024 Hypokalemia (ICD-10 - E87.6) K+ has [...] also improving notably, will continue to trend 10/05/2024 Vomiting unspecified (ICD-10 - R11.10) feeling better now, still awaiting GI consult, has scheduled 10/05/2024 Hypokalemia (ICD-10 - E87.6) K+ has normalized, not taking any supplementation. Given her frequent episodes of GI issues - prefer to avoid restart of HCTZ given it likely contributes to her K+ issues. Instead will begin spironolocatone, however due to interaction risks, we will try to d/c cozaar and use amlodipine and spironolactone for HTN managment with patient checking regularly at home and close f/u within a week. 10/15/2024 Edema localized (ICD-10 - R60.0) Reviewed recent labs, patient tolerating spironolactone ok. recent diagnostics reassuring with normal BNP and CXR. Will increase dose to 100mg daily as discussed. Close follow up next week .Today the leg swelling is improved compared with last week and weight is reducing. However she notes continued bilateral swelling that is worse at night and after her long work shifts. Recommended compression socks. There is no leg tenderness or warmth. Call back sooner if any concerns and referral to vascular made as venous insufficency considered, she also has a remote tobacco use hx If any trouble in breathing, chest pain, sudden unilateral leg pain, worsening shortness of breath seek emergent care 10/15/2024 Hypokalemia (ICD-10 - E87.6) Has remained stable on weekly labs. 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 TCM treatment principles : scatter the cold, disperse wind and dampness in the body. 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 TCM treatment principles : scatter the cold, disperse wind and dampness in the body. tonify Qi, move Blood and Qi 09/28/2024 HTN (ICD-10 - I10) Chronic Condition stable and controlled. continue same plan with current medication and scheduled reassessment 10/15/2024 HTN (ICD-10 - I10) She forgot to hold the cozaar after last visit, we will increase spironolactone as noted above and hold the cozaar. Re-check next week, todays reading slightly higher than prior visit but she is also drinking AM coffee during our visit today which may be influencing this 10/05/2024 HTN (ICD-10 - I10) BP in range today, see above 09/24/2024 Nausea (ICD-10 - R11.0) Has continued to steadily improve, aware if any recurrent symptoms such as severe nausea, vomtiing, diarrhea, need to go immediately to ED 09/23/2024 Nausea (ICD-10 - R11.0) - GI and Nausea Management: Continue using Zofran and promethazine for nausea. Patient advised to discuss nausea management with her gynecology teacher, Tyler. we discussed that [facility] (only one her insurance will pay for) is actually known for dealing well with unexplained GI issues and she may actually have a very good experience there! 09/21/2024 Fatigue (ICD-10 - R53.83) Reports she stopped her prozac a few weeks ago after GI episode began. She is aware of risks of abruptly stopping medication. At this point 06/15/2024 Joint pains (ICD-10 - M25.50) Gets chills, joint pains, nausea, vomiting, episodically as discussed above. Referral to esthetic dermatologist made as discussed 05/05/2024 Cyclical vomiting syndrome unrelated to migraine (ICD-10 - R11.15) 04/13/2024 Nausea (ICD-10 - R11.0) -given a shot of 25 milligram Promethazine Today, has Promethazine suppositories and Zofran at home -She was advised to increase her fluid intake, small sips and take smaller bites while eating. 03/30/2024 Hypothyroidism (ICD-10 - E03.9) refill sent, will update labs 02/05/2024 HTN (ICD-10 - I10) ? secondary HTN--waiting for nephrology will do a renal US and workup with Dr. Castro on 02/27/2024 01/16/2024 Sore throat (ICD-10 - J02.9) pharynx clear, rapid strep neg. suspect secondary to the frequent cough 01/08/2024 Pain wrist, left (ICD-10 - M25.532) Treatment/Needle Set 1:Points: Bi LV2, ST44, GB43 6 Awxglbs36 minutes face to face with patient for set 1 Treatment/Needle Set 2:Points: Bi BL32,33, GB30, KEYLA JI L4, L5, BL 17,18,19, 10, LI4, Ear Deonte L LU10,PC8, SI4, Marli point medial to LU9 GV4, Windy Qi zhui johnny 28 needles 10 minutes face to face with patient for set 2 Treatment/needles set 3 points: Bi ST36, GB26, L SP6, R KD3, CV4, 12 8 [place] 15 min face to face with patient for set 3 [place] were retained for 45 minutes _# of [...] TCM Pattern: 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 TCM treatment principles : scatter the cold, disperse wind and dampness in the body. 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 TCM treatment principles : scatter the cold, disperse wind and dampness in the body. tonify Qi, move Blood and Qi 11/12/2024 Edema localized (ICD-10 - R60.0) Reports this has resolved , on exam no notable swelling and weight back to her baseline. She is tolerating the spironolactone well. 06/25/2024 Pain wrist, left (ICD-10 - M25.532) Treatment/Needle Set 1:Points: Ba susu, Bi Khari esau, keyla ji T3,2, 1,C7, GB20. 20 [place] 20 minutes face to face with patient for set 1 Treatment/Needle Set 2:Points:L LI4,5, 3, LU1, 9, 1 Needle on thenar eminence crease, TW6, 1 Ba lanny between 2-3rd finger 8 needles 15 minutes face to face with patient for set 2 [place] were retained for 45 minutes _# of needles inserted:28_# of needles withdrawn: 28 Adjunct techniques used: 1. infrared therapy:1) [employer] Soft Mesh Far Infrared Heating Pad with Tatiana & Tourmaline Gemstones on the tableCupping/Sliding cupping on: wet cupping on Bi BL13 area and SI joint area before any needling Manual Tui Na on: NONE Gua Sha on: nonePatient tolerated the procedure well. 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 TCM treatment principles : scatter the cold, disperse wind and dampness in the body. 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 TCM treatment principles : scatter the cold, disperse wind and dampness in the body. tonify Qi, move Blood and Qi 05/21/2024 Pain wrist, left (ICD-10 - M25.532) Treatment/Needle Set 1:Points: Bi SP4, ST36, PC6, ST21, CV12,11 10 [place] 20 minutes face to face with patient for set 1 Treatment/Needle Set 2:Points: Bi ba lanny, LI5, ST44, CV6 13 needles 15 minutes face to face with patient for set 2 [place] were retained for 45 minutes _# of needles inserted:23_# of needles withdrawn: 23 Adjunct techniques used: 1. infrared therapy:1) [employer]Line Soft Mesh Far Infrared Heating Pad with Tatiana & Tourmaline Gemstones on the tableCupping/Sliding cupping on: none Manual Tui Na on: NONE Gua Sha on: Back along the BL channels, chestPatient tolerated the procedure well. 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 TCM treatment principles : scatter the cold, disperse wind and dampness in the body. 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 TCM treatment principles : scatter the cold, disperse wind and dampness in the body. 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 TCM treatment principles : scatter the cold, disperse wind and dampness in the body. 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 TCM treatment principles : scatter the cold, disperse wind and dampness in the body. 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 TCM treatment principles : scatter the cold, disperse wind and dampness in the body. 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 TCM treatment principles : scatter the cold, disperse wind and dampness in the body. 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 TCM treatment principles : scatter the cold, disperse wind and dampness in the body. 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 TCM treatment principles : scatter the cold, disperse wind and dampness in the body. 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 TCM treatment principles : scatter the cold, disperse wind and dampness in the body. tonify Qi, move Blood and Qi 01/08/2024 HTN (ICD-10 - I10) Amlodipine increased to 10mg on 12/31 and losartan 100 mg but BP still high to date. Discussed add on HCTZ for triple therapy. Ref to nephrology? Will first dw team. See TE. 02/05/2024 Hypothyroidism, unspecified (ICD-10 - E03.9) Pt wants a refill of her meds. Rx sent to pharmacy 04/13/2024 Vomiting, unspecified (ICD-10 - R11.10) -Nausea, vomiting, and cramping could be related to constipation. She disagrees with this but is willing to try Miralax, 17 grams in 8 oz of water daily. She can sip it slowly throughout the day to get it in. 03/30/2024 HTN (ICD-10 - I10) BP in range today. Has continued work up pending thru Dr Castro to assess renal artery US. I advised the untreated JACKY can also be making HTN harder to treat. Will monitor closely. 06/15/2024 ADHD, unspecified type (ICD-10 - F90.9) Having hard time functioning at home and work since stopping the adderall. Would like to restart. Aware of risks of elevated BP with medication and she will check BP reguarly at work and follow up if high readings or any issues/side effects 05/05/2024 Impaired fasting glucose (ICD-10 - R73.01) 09/21/2024 ADHD, other type (ICD-10 - F90.8) main focus today on above issues, reports she is stable on adderall at current dose and hasnt been taking it lately as not feeling well, therefore does not need refill yet 10/05/2024 Edema localized (ICD-10 - R60.0) Noted leg swelling and weight increase since GI symptoms resolved and also the HCTZ was d/c'd during episode. No unilateral leg swelling, calf tenderness or hypoxia. She has hx of leg swelling for which diuretics had helped. see above, we alex also check BNP, CXR as precaution and if any sudden changes/worsening seek emergent care. She will monitor weight regularly. 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 TCM treatment principles : scatter the cold, disperse wind and dampness in the body. 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 TCM treatment principles : scatter the cold, disperse wind and dampness in the body. tonify Qi, move Blood and Qi 10/05/2024 Shortness of breath (ICD-10 - R06.02) Reports mild SOB with walking quickly. We will obtain CXR and labs including proBNP. No acute cough or trouble in breathing, close f/u as scheduled and to ED immediately if any worsening 05/05/2024 Fatigue (ICD-10 - R53.83) 09/28/2024 Fatigue (ICD-10 - R53.83) Feels cymbalta has led to less hand pain, no side effects, would like to try higher dose. 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 TCM treatment principles : scatter the cold, disperse wind and dampness in the body. tonify Qi, move Blood and Qi 01/08/2024 Asthma Mild intermittent, uncomplicated (ICD-10 - J45.20) Does not seem related, due to normal pulm exam/although recent covid is a factor. 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 TCM treatment principles : scatter the cold, disperse wind and dampness in the body. 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 TCM treatment principles : scatter the cold, disperse wind and dampness in the body. 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 TCM treatment principles : scatter the cold, disperse wind and dampness in the body. tonify Qi, move Blood and Qi 01/08/2024 ADHD, unspecified type (ICD-10 - F90.9) Discussed w [facility] at prev visit -- RX resent. 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 TCM treatment principles : scatter the cold, disperse wind and dampness in the body. 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 TCM treatment principles : scatter the cold, disperse wind and dampness in the body. tonify Qi, move Blood and Qi 05/05/2024 Hyperlipidemia, unspecified (ICD-10 - E78.5) 03/30/2024 JACKY (ICD-10 - G47.33) Referral to [facility] sleep medicine made as discussed. 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 TCM treatment principles : scatter the cold, disperse wind and dampness in the body. tonify Qi, move Blood and Qi 02/05/2024 Elevated C-reactive protein (CRP) (ICD-10 - R79.82) elevated HSCRP x2 : 12/05 19.5; 12/18 14.1 03/30/2024 Hyperlipidemia, unspecified (ICD-10 - E78.5) Update labs, follow up to review results 03/30/2024 Hypokalemia (ICD-10 - E87.6) States she has been followed by renal for lower potassium, of note is prescribed HCTZ. We will re-check level and further management pending results. Pt aware of symptoms that would require return to ED. 02/05/2024 Prediabetes (ICD-10 - R73.03) A1C 5.8% Lifestyle rec as above 02/13/2024 Other Patient presents with signs and [...] had with patient face to face in [facility] office. Consult and education time includes: 1)Previsit visit time: review patient acupuncture intake form, history of western medical conditions on file (EHR), imaging, lab results, sometime discussion with patient's PCP, 2) During visit time: intake and examination, palpation, consultation; 3)Post visit time: record clinic notes, sometime discussion with patient's PCP. Clean Needle Technique (CNT) is used in every treatment. Fpff-pe-ljkh time includes day-to-day evaluation, hand washing, choosing and cleaning points, inseting and manipulating needles, monitoring, removal, and disposal of needles, and completion of the chart notes with patient present. 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 TCM treatment principles : scatter the cold, disperse wind and dampness [...] had with patient face to face in [facility] office. Consult and education time includes: 1)Previsit visit time: review patient acupuncture intake form, history of western medical conditions on file (EHR), imaging, lab results, sometime discussion with patient's PCP, 2) During visit time: intake and examination, palpation, consultation; 3)Post visit time: record clinic notes, sometime discussion with patient's PCP. Clean Needle Technique (CNT) is used in every treatment. Fkta-ai-dsyb time includes day-to-day evaluation, hand washing, choosing and cleaning points, inseting and manipulating needles, monitoring, removal, and disposal of needles, and completion of the chart notes with patient present. 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 TCM treatment principles : scatter the cold, disperse wind and dampness [...] had with patient face to face in [facility] office. Consult and education time includes: 1)Previsit visit time: review patient acupuncture intake form, history of western medical conditions on file (EHR), imaging, lab results, sometime discussion with patient's PCP, 2) During visit time: intake and examination, palpation, consultation; 3)Post visit time: record clinic notes, sometime discussion with patient's PCP. Clean Needle Technique (CNT) is used in every treatment. Jcvr-gc-rkix time includes day-to-day evaluation, hand washing, choosing and cleaning points, inseting and manipulating needles, monitoring, removal, and disposal of needles, and completion of the chart notes with patient present. 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 TCM treatment principles : scatter the cold, disperse wind and dampness in the body. tonify Qi, move Blood and Qi 06/25/2024 Other Patient presents with signs and symptoms [...] had with patient face to face in [facility] office. Consult and education time includes: 1)Previsit visit time: review patient acupuncture intake form, history of western medical conditions on file (EHR), imaging, lab results, sometime discussion with patient's PCP, 2) During visit time: intake and examination, palpation, consultation; 3)Post visit time: record clinic notes, sometime discussion with patient's PCP. Clean Needle Technique (CNT) is used in every treatment. Qdzm-cy-jcfc time includes day-to-day evaluation, hand washing, choosing and cleaning points, inseting and manipulating needles, monitoring, removal, and disposal of needles, and completion of the chart notes with patient present. 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 TCM treatment principles : scatter the cold, disperse wind and dampness in the body. tonify Qi, move Blood and Qi 07/02/2024 Other Patient presents with signs and symptoms [...] had with patient face to face in [facility] office. Consult and education time includes: 1)Previsit visit time: review patient acupuncture intake form, history of western medical conditions on file (EHR), imaging, lab results, sometime discussion with patient's PCP, 2) During visit time: intake and examination, palpation, consultation; 3)Post visit time: record clinic notes, sometime discussion with patient's PCP. Clean Needle Technique (CNT) is used in every treatment. Ftqf-py-pgyn time includes day-to-day evaluation, hand washing, choosing and cleaning points, inseting and manipulating needles, monitoring, removal, and disposal of needles, and completion of the chart notes with patient present. 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 TCM treatment principles : scatter the cold, disperse wind and dampness in the body. tonify Qi, move Blood and Qi 12/19/2023 Other Patient presents with signs and [...] had with patient face to face in [facility] office. Consult and education time includes: 1)Previsit visit time: review patient acupuncture intake form, history of western medical conditions on file (EHR), imaging, lab results, sometime discussion with patient's PCP, 2) During visit time: intake and examination, palpation, consultation; 3)Post visit time: record clinic notes, sometime discussion with patient's PCP. Clean Needle Technique (CNT) is used in every treatment. Bfnm-om-ogfu time includes day-to-day evaluation, hand washing, choosing and cleaning points, inseting and manipulating needles, monitoring, removal, and disposal of needles, and completion of the chart notes with patient present. 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 TCM treatment principles : scatter the cold, disperse wind and dampness [...] had with patient face to face in [facility] office. Consult and education time includes: 1)Previsit visit time: review patient acupuncture intake form, history of western medical conditions on file (EHR), imaging, lab results, sometime discussion with patient's PCP, 2) During visit time: intake and examination, palpation, consultation; 3)Post visit time: record clinic notes, sometime discussion with patient's PCP. Clean Needle Technique (CNT) is used in every treatment. Amuv-fb-dsoa time includes day-to-day evaluation, hand washing, choosing and cleaning points, inseting and manipulating needles, monitoring, removal, and disposal of needles, and completion of the chart notes with patient present. 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 TCM treatment principles : scatter the cold, disperse wind and dampness in the body. tonify Qi, move Blood and Qi 01/01/2024 Other Pt did her bw a t [email or web address]. We do not have results. She [...] had with patient face to face in [facility] office. Consult and education time includes: 1)Previsit visit time: review patient acupuncture intake form, history of western medical conditions on file (EHR), imaging, lab results, sometime discussion with patient's PCP, 2) During visit time: intake and examination, palpation, consultation; 3)Post visit time: record clinic notes, sometime discussion with patient's PCP. Clean Needle Technique (CNT) is used in every treatment. [id number] time includes day-to-day evaluation, hand washing, choosing and cleaning points, inseting and manipulating needles, monitoring, removal, and disposal of needles, and completion of the chart notes with patient present. 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 TCM treatment principles : scatter the cold, disperse wind and dampness [...] future improved posture as described above. 03/30/2024 [facility] flow sheet reveiwed and updated 04/13/2024 Other [...] mesenteric ischemia. pt has been see through [facility], although I am not currently seeing [...] provided, may look into intermittent leave through [place]. will need f/u after labs reviewed. Extensive counseling and emotional support. Overall time spent in patient care coordination, medical management, counseling and education of patient and family 40 minutes were spent involving this patient's care Plan Of Treatment Pending Test Test Name Order Date X ray : Chest PA and LAT 10/05/2024 X ray : Chest PA and LAT 01/09/2023 X ray : Chest PA and LAT 01/22/2011 X ray : Chest PA and LAT 09/10/2017 X ray : Chest PA and LAT 04/14/2007 Urine Dip --in house 01/09/2023 Ultrasound : Breast, right 09/01/2009 Barium Swallow 06/11/2018 Echocardiogram 12/05/2023 Mammogram 12/14/2022 Mammogram 07/19/2021 Mammogram 05/11/2021 Mammogram 02/15/2016 Spirometry 10/22/2013 Spirometry 06/11/2018 Rapid Strep 08/27/2022 Urine Cytology (AMHERST) 06/26/2017 Urine Cytology ([facility]HERST) 10/30/2016 Colonoscopy 05/11/2021 Colonoscopy 05/11/2021 Colonoscopy 07/19/2021 ekg 04/16/2022 ekg 01/09/2023 -PAP, cervical: HPV HYBRID C APTURE HIGH RISK DNA PROBE if diagnosis of ASCUS 11/21/2006 X ray : Sinuses 04/03/2011 -CRP, High Sensitivity (HSCRP) 1 HEMOGLOBIN A1C 05/05/2024 URINE CULTURE (395 NOHO) 06/12/2022 MRI : brain 08/15/2006 -VITAMIN D2, D3 & TOTAL (250H) 2 -VITAMIN D2, D3 & TOTAL (250H) 2 -VITAMIN D2, D3 & TOTAL (250H) 1 -Pap Smear 09/13/2009 PAP, cervical; HPV Hybrid Capture High R isk DNA Probe any Dx 10/26/2015 PAP, cervical; HPV Hybrid Capture High R isk DNA Probe any Dx 12/20/2021 Mammogram, routine annual screening 10/09 Mammogram, routine annual screening 10/09 Mammogram, routine annual screening 07/09 Mammogram, routine annual screening 08/2008 Mammogram, routine annual screening 08/10 Mammogram, routine annual screening 05/2021 Mammogram, routine annual screening 10/09 Mammogram, routine annual screening 05/2018 Urine Osmo Random 06/05/2022 Urine, Sodium Random 06/05/2022 MRI : Wrist, Left 04/20/2010 -HEMOGLOBIN A1C (DIAGNOSTIC) 11/06/2011 -ROSS IFA, W/REFL TO TITER/PATTERN/CASCAD E 05/05/2024 AMYLASE 05/05/2024 TSH, 3RD GENERATION W/REFLEX TO FT4 04/12 CBC WITH DIFF 05/05/2024 VITAMIN B12/FOLATE, SERUM PANEL 05/05/19 25 SED RATE 05/05/2024 -TSH 09/19/2010 -TSH 09/14/2009 -TSH 08/28/2011 -LIPID PANEL, FASTING 07/20/2010 -LIPID PANEL, FASTING 11/06/2011 COMPREHENSIVE METABOLIC PANL -[id number] 10/10 COMPREHENSIVE METABOLIC PANL -[id number] 04/12 MRI: Lumbar spine with and without contr ast 07/16/2013 LIPID PANEL 05/05/2024 Stress Treadmill Test 12/05/2023 FERRITIN 12/14/2022 FERRITIN 11/23/2022 IRON & TIBC 11/23/2022 LIPASE 05/05/2024 HEMOGLOBIN A1C 05/12/2018 HEMOGLOBIN A1C 12/12/2017 HEMOGLOBIN A1C 10/30/2016 HEMOGLOBIN A1C 06/26/2017 HEMOGLOBIN A1C 06/24/2020 HSCRP 07/27/2014 HSCRP 10/26/2015 HSCRP 09/24/2013 COMPREHENSIVE METABOLIC PANL 05/12/2018 COMPREHENSIVE METABOLIC PANL 06/26/2017 COMPREHENSIVE METABOLIC PANL 12/12/2017 COMPREHENSIVE METABOLIC PANL 05/11/2021 COMPREHENSIVE METABOLIC PANL 07/24/2022 COMPREHENSIVE METABOLIC PANL 06/05/2022 COMPREHENSIVE METABOLIC PANL 07/19/2021 COMPREHENSIVE METABOLIC PANL 01/09/2023 COMPREHENSIVE METABOLIC PANL 11/23/2022 COMPREHENSIVE METABOLIC PANL 10/27/2022 COMPREHENSIVE METABOLIC PANL 10/25/2014 COMPREHENSIVE METABOLIC PANL 07/27/2014 COMPREHENSIVE METABOLIC PANL 06/24/2020 COMPREHENSIVE METABOLIC PANL 10/30/2016 COMPREHENSIVE METABOLIC PANL 10/26/2015 LIPID PANEL 10/30/2016 LIPID PANEL 10/25/2014 LIPID PANEL 07/27/2014 LIPID PANEL 10/26/2015 LIPID PANEL 07/24/2022 LIPID PANEL 07/19/2021 LIPID PANEL 05/11/2021 LIPID PANEL 12/12/2017 LIPID PANEL 06/26/2017 LIPID PANEL 05/12/2018 TSH WITH REFLEX TO T4 05/12/2018 TSH WITH REFLEX TO T4 06/26/2017 TSH WITH REFLEX TO T4 12/12/2017 TSH WITH REFLEX TO T4 05/11/2021 TSH WITH REFLEX TO T4 07/19/2021 TSH WITH REFLEX TO T4 07/24/2022 TSH WITH REFLEX TO T4 10/26/2015 TSH WITH REFLEX TO T4 10/25/2014 TSH WITH REFLEX TO T4 10/30/2016 CORTISOL 07/19/2021 ESTRADIOL 07/19/2021 INSULIN 06/24/2020 TSH 07/27/2014 TSH 09/14/2013 Vitamin D25 OH 05/12/2018 Vitamin D25 OH 08/24/2018 Vitamin D25 OH 09/24/2018 Vitamin D25 OH 05/11/2021 Vitamin D25 OH 07/19/2021 Vitamin D25 OH 12/12/2017 Vitamin D25 OH 07/24/2022 Vitamin D25 OH 07/27/2014 Vitamin D25 OH 10/26/2015 CBC 07/16/2013 CBC AUTO DIFF 10/30/2016 CBC AUTO DIFF 10/26/2015 CBC AUTO DIFF 10/25/2014 CBC AUTO DIFF 07/24/2022 CBC AUTO DIFF 10/27/2022 CBC AUTO DIFF 01/09/2023 CBC AUTO DIFF 12/12/2017 CBC AUTO DIFF 06/26/2017 CBC AUTO DIFF 07/19/2021 CBC AUTO DIFF 09/24/2018 CBC AUTO DIFF 05/12/2018 SED RATE 07/19/2021 SED RATE 12/14/2022 SED RATE 01/09/2023 SED RATE 10/27/2022 SED RATE 10/30/2016 ROSS (ANTI-NUCLEAR ANTIBODY SCREEN) USE THIS ONE 10/26/2015 ROSS (ANTI-NUCLEAR ANTIBODY SCREEN) USE THIS ONE 12/14/2022 CRP 12/14/2022 CRP 01/09/2023 CRP 10/27/2022 CRP 11/23/2022 CRP 07/19/2021 CRP 10/25/2014 CRP 10/30/2016 CRP 07/16/2013 RHEUMATOID FACTOR 10/26/2015 LYME AB [...] reflex 11/27/2019 1-25-OH vitamin D 11/27/2019 CBC 12/05/2023 CBC 03/30/2024 CBC 10/05/2024 BASIC METABOLIC PANEL 09/24/2024 BASIC METABOLIC PANEL 09/28/2024 BASIC METABOLIC PANEL 09/23/2024 COMP MET PANEL 10/05/2024 COMP MET PANEL 09/14/2024 COMP MET PANEL 03/30/2024 COMP MET PANEL 12/05/2023 COMP MET PANEL 04/13/2024 COMP MET PANEL 11/27/2019 Hemoglobin A1c 12/05/2023 LIPID PANEL 12/05/2023 LIPID PANEL 03/30/2024 LIPID PANEL 11/27/2019 Urinalysis 04/13/2024 Amylase 04/13/2024 CRP 09/14/2024 Free T4 03/30/2024 Lipase 09/14/2024 Lipase 04/13/2024 Magnesium 09/23/2024 Magnesium 09/24/2024 NT-proBNP 10/05/2024 TSH 03/30/2024 CBC AND DIFFERENTIAL 09/14/2024 CBC AND DIFFERENTIAL 04/13/2024 CBC AND DIFFERENTIAL 11/27/2019 US ABDOMEN 09/08/2018 US ABDOMEN 09/08/2018 IRON, [...] 05/05/2024 LP(a) FRACTION 05/05/2024 CRP 05/05/2024 HSCRP 12/05/2023 HSCRP 12/12/2023 ANCA SCREEN WITH REFLEX TO TITER 025 Celiac Disease HLA Typing 05/05/2024 EKG 09/23/2024 Future Test Test Name Order Date -VITAMIN D2, D3 & TOTAL (250H) 1 -TSH 03/27/2010 Next Appt Details Provider Name:Austin Rios, 1 04/18/2024 08:30:00 AM, [address], [place], [address], Provider Name:Austin Rios, 0 04/22/2025 09:00:00 AM, [address] [place], [address], Insurance Providers Payer Name Payer Address Payer Phone Subscriber Number Group Number Insured Name Patient Relationship to Insured Coverage Start Date Coverage End Date [employer] (PP[employer]) [address] [address] [place] [phone] [id number] R[place] Self - patient is the insured Medications Administered Medication Instructions Date of Administration Dosage Notes Dexamethasone 08/31/2022 0.8 mL Promethazine 04/13/2024 25 mg Medical (General) History Medical History History ICD Code seasonal allergies pneumonia 08/25/09-and 12/2014-(many pneu monias as a child) Hypothyroidism HTN 09/2015 Pneumonia NOS Covid19 02/2022; Covid19 08/2023 NORMAL ECHO 12/2023; CAC score 0 01/2024 Surgical History Surgery Date(Month/Year) (2) c-sections 1986,1998 abdominal lipoma removed 2003 endometrial ablation- [place] 07/2007 L rotator cuff tear repair w/ 10/04/09 decompression of left median nerve dr Gallegos ath 06/07/2010 S/P Abdominal Endometrioma ( [place]) 2 004 Rt rotator cuff repair- Dr. Lovelace 05/10 LRTI - arthroscopic surgery - [facility], Dr. Sherman 12/22/2020 Hospitalization History Reason Date(Month/Year) [facility] for abd pain and vomiting 05/01/2024 [facility] vomiting 02/2024 [facility] visit for vomiting 12/2022 [facility] for N/V, abdominal p ain 08/22-08/24/22
--- OUTSIDE RECORDS SUMMARY | 2024-12-08 16:17 | XMS_ITS | Encounter Summary ---
Author Organization [facility], Address [address] [place] [address] Phone Care Team Providers Care Instrument Mechanic Name Role Phone Austin Rios PA-C Primary Care Provider [phone] Encounter Details Date Type Department Care Team (Late st Contact Info) Description 04/01/2024 Documentation Only [facility], [address] [address] Peyton Mendez [address] [place] [phone] Social History Tobacco Use Types Packs/Day [...] Visit [facility] [place] [address] [place] [phone] Remberto Fletcher MD [address] [place] [address] [place] [address] documented as of this encounter Visit Diagnoses Not on filedocumented in this encounter Care Teams Instrument Mechanic Relationship Specialty Start Date End Date Austin Rios PA-C [address] [place] [id number] PCP - General Physician National Insurance Officer 02/27/24 documented as of this encounter
--- OUTSIDE RECORDS SUMMARY | 2024-12-08 16:17 | XMS_ITS | Encounter Summary ---
Author Organization [facility], Address [address] [place] [address] Phone Care Team Providers Care Range Examiner Name Role Phone Austin Rios PA-C Primary Care Provider [phone] Encounter Details Date Type Department Care Team (Late st Contact Info) Description 04/03/2024 Documentation Only [facility], [address] [place] [address] Peyton Mendez [address] [place] [phone] Social History Tobacco Use Types Packs/Day [...] Visit [facility] - [place] [address] [place] [phone] Remberto Fletcher MD [address] [place] [address] [place] [address] documented as of this encounter Visit Diagnoses Not on filedocumented in this encounter Care Teams Range Examiner Relationship Specialty Start Date End Date Austin Rios PA-C [address] [place] [phone] PCP - General Physician Gold Leaf Laborer 02/27/24 documented as of this encounter
--- OUTSIDE RECORDS SUMMARY | 2024-12-08 16:18 | XMS_ITS | Encounter Summary ---
Author Organization [facility] Address [address] [place] [address] Phone Care Team Providers Care Journeyman Power Plant Operator Name Role Phone Esme Claudio MD Unavailable [phone] Roseann Lopez Primary Care Provider Cullen Corrigan MD Unavailable Esme Claudio MD Unavailable Encounter Details Date Type Department Care Team (Latest Contact Info) Description 06/08/2022 Transcribe Orders Virtual Department [address] [place] [address] Remberto Fletcher MD 15 [facility] [address] [place] [address] [email or web address] Essential hypertension (Primary Dx); Prerenal azotemia Social History Tobacco Use Types Packs/Day Years [...] as of this encounter Results * US Kidneys (06/29/2022 10:03 AM EDT) Anatomical Region Laterality Modality Abdomen, Kidney Ultrasound 06/29/2022 5:43 PM EDT Impressions 06/29/2022 5:44 PM EDT Unremarkable renal ultrasound Narrative 06/29/2022 5:44 PM EDT US KIDNEYS TECHNIQUE: Kidney Ultrasound. COMPARISON: None FINDINGS: Right Kidney: Size: 9.8 cm Normal. No stones or hydronephrosis. Left Kidney: Size: 9.6 cm Normal. No stones or hydronephrosis. Bladder: Normal. Procedure Note Joseph Caceres MD, RADHA - 06/29/2022 US KIDNEYS TECHNIQUE: Kidney Ultrasound. COMPARISON: None FINDINGS: Right Kidney: Size: 9.8 cm Normal. No stones or hydronephrosis. Left Kidney: Size: 9.6 cm Normal. No stones or hydronephrosis. Bladder: Normal. IMPRESSION: Unremarkable renal ultrasound us Remberto Fletcher MD IMG US RENAL Final Result documented in this encounter Visit Diagnoses Diagnosis Essential hypertension- Primary Unspecified essential hypertension Prerenal azotemia Other symptoms involving urinary system Essential hypertension Unspecified essential hypertension Prerenal azotemia Other symptoms involving urinary system documented in this encounter Care Teams Journeyman Power Plant Operator Relationship Specialty Start Date End Date Roseann Lopez PA [address] [place] [phone] [email or web address] PCP - General Unknown Provider Specialty 12/15/21 Esme Claudio MD [address] [place] [address] [email or web address] Historical LMR Provider 12/24/16 Cullen Corrigan MD [address] [place] [phone] [email or web address] Insurance Assigned Provider 07/14/22 09/15/22 Esme Claudio MD [address] [place] [id number] [email or web address] Insurance Assigned Provider 06/15/23 11/16/23 documented as of this encounter Additional Source Comments The information contained in this document represents components of the legal health record. It is not the complete legal health record.[facility]
--- OUTSIDE RECORDS SUMMARY | 2024-12-08 16:18 | XMS_ITS | Clinical Summary ---
Author Organization [facility] Address [address] [place] [phone] Phone Care Team Providers Care Provider Relations Coordinator Name Role Phone Esme Claudio MD Unavailable [phone] Roseann Lopez Primary Care Provider Allergies Active Allergy Reactions Criticality Noted Date Comments Latex 01/06/2023 Oxycodone-Acetaminophen 01/06/2023 Medications dextroamphetamin e-amphetamine (ADDERALL) 30 mg Tab tablet Take 1 tablet by mouth daily. Active levothyroxine (SYNTHROID, LEVOTHROID) 75 MCG tablet Take 100 mcg by mouth daily. Active losartan (COZAAR) 50 MG tablet Take 100 mg by mouth daily. Active dexmethylphenida te (FOCALIN XR) 10 MG 24 hr capsule Take 20 mg by mouth daily. Active Active Problems Problem Noted Date Diagnosed Date Primary osteoarthritis involving multiple joints 02/04/2023 History of rhabdomyolysis 02/04/2023 Mild intermittent asthma without complication Fever and chills 02/04/2023 Nausea and vomiting in adult 02/04/2023 Encounters Date Type Department Care Team Description 09/23/2024 Transcribe Orders [facility] [address] [place] [phone] Ernie Sun NP Hypokalemia from Last 3 Months Immunizations Immunization Administration Dates Next Due Hepatitis B Adult 01/23/1992,05/23/1991,03/24/18 92 Td (adult),2 Lf Tetanus Toxo id, PF, Adsorbed 06/29/2004 Tdap 10/08/2011 Family History Medical History Relation Comments Ovarian cancer Maternal Aunt Breast cancer Mother Relation Status Comments Maternal Aunt Alive Mother Social History Tobacco Use Types Packs/Day Years Used Date Smoking Tobacco: Every Day Cigarettes Smokeless Tobacco: Never Tobacco Cessation:Ready to Q uit: Not Asked; Counseling Given: Not Answered Education Answer Date Recorded Are you interested [...] PM EDT Sexual Orientation Not on file Last Filed Vital Signs Vital Sign Reading Time Taken Comments Blood Pressure 178/98 01/24/2023 10:05 AM EST Pulse 125 01/24/2023 10:05 AM EST Temperature 36.9 C (98.4 F) 01/24/2023 10:05 AM EST Respiratory Rate 20 01/06/2023 9:28 PM EDT Oxygen Saturation 96% 01/24/2023 10:05 AM EST Inhaled Oxygen Concentration - - Weight 78.9 kg (174 lb) 02/15/2023 9:10 AM EST Height 154.9 cm (5' 1 ) 02/15/2023 9:10 AM EST Body Mass Index 32.88 02/15/2023 9:10 AM EST Plan of Treatment Health Maintenance Due Date Last Done Comments DEPRESSION SCREENING 1974 SMOKING Hx and SMOKELESS TOBACCO SCREENING 09/18/1975 HIV ONE-TIME SCREENING (18-65 YEARS) 1980 PNEUMOCOCCAL VACCINES (50+ years) (1 of 2 - PCV) 1981 COLOGUARD 09/18/2007 COLONOSCOPY 09/18/2007 COLORECTAL CANCER SCREENING 09/18/2007 FIT TEST 09/18/2007 FOBT 09/18/2007 SIGMOIDOSCOPY 09/18/2007 VIRTUAL COLONOSCOPY 09/18/2007 PAP SMEAR 11/14/2015 11/13/2012 RSV VACCINE (1 - Risk 60-74 years 1-dose series) 2022 BLOOD PRESSURE 07/25/2023 01/24/2023 TSH LEVEL 12/08/2023 12/07/2022, 11/10, 06/22/2020 CREATININE LEVEL 01/10/2024 01/09/2023, , 01/04/2023, Additional history exists POTASSIUM LEVEL 01/10/2024 01/09/2023, 12/10, 01/04/2023, Additional history exists INFLUENZA VACCINE (#1) 2024 12/20/2021, 2014 COVID-19 VACCINE ( season) 2024 12/20/2021, 01/15/2021, 04/23/2020, Additional history exists MAMMOGRAM 01/15/2025 01/15/2023, 06/10/2021, 07/04/2020, Additional history exists SCREENING FOR DIABETES 12/07/2025 12/07/2022, 2022 LIPID PANEL 12/08/2027 12/07/2022, 11/10, 06/22/2020 Adult Td,Tdap Booster 07/20/2031 07/19/2021 , 10/08/2011, 06/29/2004 HEPATITIS A VACCINES Aged Out 02/25/2013 No long er eligible based on patient's age to complete this topic ZOSTER VACCINES Completed 07/24/2022, 07/19/2021 HEPATITIS C SCREENING Completed 12/07/2022, 023 HIB VACCINES Aged Out No longer eligi ble based on patient's age to complete this topic MENINGOCOCCAL VACCINES (ACWY) Aged Out No longer eligible based on patient's age to complete this topic MENINGOCOCCAL VACCINES (B) Aged Out N o longer eligible based on patient's age to complete this topic Medical Devices Not on file Procedures Procedure Name Priority Date/Time Associated Diagnosis Comments BI MAMMOGRAM SCREENING WITH TOMOSYNTHESIS WITH CAD (BILATERAL) Routine 01/15/2023 8:36 AM EST Breast screening COMPREHENSIVE METABOLIC PANEL Routine 01/09/2023 12:50 PM EDT Abdominal pain, generalized LIPID PANEL Routine 12/07/2022 12:26 PM EDT Need for hepatitis C screening test Encounter for special screening examination for cardiovascular disorder Hot flashes Hypothyroidism, adult Vitamin D deficiency Postartificial menopausal syndrome HEPATITIS C ANTIBODY, QUALITATIVE Routine 12/07/2022 12:26 PM EDT Need for hepatitis C screening test TSH Routine 12/07/2022 12:26 PM EDT Generalized abdominal pain Gastroesophageal reflux disease with esophagitis, unspecified whether hemorrhage from Last 3 Months or Most Recently Relevant to Health Maintenance Results * BI MAMMOGRAM SCREENING WITH TOMOSYNTHESIS [...] [facility] MG EXAMS Final Resul t * (ABNORMAL) Comprehensive metabolic panel (01/09/2023 12:50 PM EDT) SODIUM 136 133 - 146 mmol/L [facility] POTASSIUM 3.5 3.3 - 5.1 mmol/L [facility] CHLORIDE 97 96 - 108 mmol/L [facility] CO2 29 21 - 35 mmol/L [facility] BUN 15 6 - 19 mg/dL [facility] CREATININE 0.90 0.5 - 1.5 mg/dL [facility] GLUCOSE 138(H) 70 - 99 mg/dL [facility] ALBUMIN 4.5 3.9 - 4.8 g/dL [facility] TOTAL PROTEIN 6.7 6.5 - 8.0 g/dL [facility] CALCIUM 9.9 8.4 - 10.3 mg/dL [facility] ALKALINE PHOSPHATASE 96 39 - 117 U/L [facility] TOTAL BILIRUBIN 0.8 0.0 - 1.2 mg/dL [facility] AST 34 0 - 37 U/L [facility] ALT 22 0 - 40 U/L [facility] GLOBULIN 2.2 1 - 4.8 g/dL [facility] EGFR 73 >59 mL/min/1.7 3m2 [facility] Comment:Estimated glomerular filtration rate calculated using the CKD-EPI refit equation. ANION GAP 14 10 - 20 mmol/L [facility] Blood 01/09/2023 12:5 0 PM EDT 01/09/2023 12:54 PM EDT Roseann BERMAN LAB BLOOD ORDERABLES Final Result [facility] [address] [place] [address] * Hepatitis C antibody, qualitative (12/07/2022 12:26 PM EDT) HCV NON-REACTIV E NON-REACTI VE [facility] Blood 12/07/2022 12:2 6 PM EDT 12/07/2022 12:34 PM EDT us Roseann Lopez PA LAB BLOOD ORDERABLES Final Result [address] [address] * TSH (12/07/2022 12:26 PM EDT) TSH 1.42 0.27 - 4.20 uIU/mL [facility] Blood 12/07/2022 12:2 6 PM EDT 12/07/2022 12:33 PM EDT us Concha Stoll PA LAB BLOOD ORDERABLES Final Result Performing Organization Address City/[facility]/ZIP Co de Phone Number [address] [address] * (ABNORMAL) Lipid panel (12/07/2022 12:26 PM EDT) HDL 41 mg/dL [facility] Comment: Interpretation <40 mg/dL: Low HDL cholesterol (major risk factor for CHD) Greater than or equal to 60 mg/dL: High HDL cholesterol ( negative risk factor for CHD) HDL - cholesterol is affected by a number of factors, e.g. smoking, excerise, hormones, sex and age. CHOLESTEROL 245(H) 0 - 240 mg/dL [facility] TRIGLYCERIDES 215(H) 30 - 160 mg/dL [facility] LDL 161(H) 50 - 129 mg/dL [facility] Comment: LDL levels in terms of risk for coronary heart disease: <100 mg/dL: Optimal 100-129 mg/dL: Near or above optimal 130-159 mg/dL: Borderline high 160-189 mg/dL: High >190 mg/dL: Very High CARDIAC RISK RATIO 6.0(H) 3.3 - 4.4 C [facility] Blood 12/07/2022 12:2 6 PM EDT 12/07/2022 12:33 PM EDT Roseann BERMAN LAB BLOOD ORDERABLES Final Result [address] [phone] from Last 3 Months or Most Recently Relevant to Health Maintenance Care Teams Provider Relations Coordinator Relationship Specialty Start Date End Date Roseann Lopez PA [address] [place] [address] [address] [place] [address] [email or web address] PCP - General Unknown Provider Specialty 12/15/21 Esme Claudio MD [address] [place] [id number] [email or web address] Historical LMR Provider 12/24/16 Additional Source Comments The information contained in this document represents components of the legal health record. It is not the complete legal health record.[facility]
--- OUTSIDE RECORDS SUMMARY | 2024-12-08 16:18 | XMS_ITS | Encounter Summary ---
Author Organization [facility] Address [address] [facility] [address] [place] [address] Phone Care Team Providers Care Ultrasound Spec Name Role Phone Esme Claudio MD Unavailable Roseann Lopez Primary Care Provider [phone] Cullen Corrigan MD Unavailable [phone] Esme Claudio MD Unavailable Encounter Details Date Type Department Care Team (Late st Contact Info) Description 06/08/2022 Procedure Pass [facility], Ct Scan - [address] [address] Social History Tobacco Use Types Packs/Day Years [...] on filedocumented in this encounter Care Teams Ultrasound Spec Relationship Specialty Start Date End Date Roseann Lopez PA [address] [place] [address] [address] [place] [address] [email or web address] PCP - General Unknown Provider Specialty 12/15/21 Esme Claudio MD [address] [place] [address] [email or web address] Historical LMR Provider 12/24/16 Cullen Corrigan MD [address] [place] [address] [email or web address] Insurance Assigned Provider 07/14/22 09/15/22 Esme Claudio MD [address] [place] [address] [email or web address] Insurance Assigned Provider 06/15/23 11/16/23 documented as of this encounter Additional Source Comments The information contained in this document represents components of the legal health record. It is not the complete legal health record.[facility]
--- OUTSIDE RECORDS SUMMARY | 2024-12-08 16:18 | XMS_ITS | Encounter Summary ---
Author Organization [facility] Address [address] [place] [address] Phone Care Team Providers Care Supervisor Fireworks Assembly Name Role Phone Esme Claudio MD Unavailable [phone] Roseann Lopez Primary Care Provider [phone] Esme Claudio MD Unavailable [phone] Encounter Details Date Type Department Care Team (Latest Contact Info) Description 09/19/2022 Transcribe Orders [facility] [address] [address] Angela Rizzo NP 10 [place] [address] Need for hepatitis C screening test (Primary Dx); Nausea; Diarrhea, unspecified type Social History Tobacco Use Types Packs/Day Years [...] documented as of this encounter Results * Vitamin B12 (09/19/2022 10:08 AM EDT) VITAMIN B12 415 232 - 1,245 pg/mL [facility] Blood 09/19/2022 10:0 8 AM EDT 09/19/2022 10:16 AM EDT Angela Rizzo PROCUREMENT SPECIALIST LAB BLOOD ORDERABLES Annalisa l Result [address] [address] * (ABNORMAL) Ferritin (09/19/2022 10:08 AM EDT) FERRITIN 187(H) 13 - 150 ug/L [facility] Blood 09/19/2022 10:0 8 AM EDT 09/19/2022 10:16 AM EDT Angela Rizzo PROCUREMENT SPECIALIST LAB BLOOD ORDERABLES Annalisa l Result Performing Organization Address City/[facility]/ZIP Co de Phone Number [address] [address] * Folate (09/19/2022 10:08 AM EDT) FOLIC ACID 8.2 4.2 - 19.9 ng/mL [facility] Blood 09/19/2022 10:0 8 AM EDT 09/19/2022 10:16 AM EDT Angela Rizzo PROCUREMENT SPECIALIST LAB BLOOD ORDERABLES Annalisa l Result Performing Organization Address City/[facility]/ZIP Co de Phone Number [address] [address] * Iron and iron binding capacity (09/19/2022 10:08 AM EDT) IRON 107 30 - 160 ug/dL [facility] IRON BINDING CAPACITY 331 228 - 428 ug/dL [facility] TRANSFERRIN SATURAT. 32 15 - 50 % [facility] Blood 09/19/2022 10:0 8 AM EDT 09/19/2022 10:16 AM EDT Angela Rizzo PROCUREMENT SPECIALIST LAB BLOOD ORDERABLES Annalisa l Result Performing Organization Address City/[facility]/ZIP Co de Phone Number [address] [address] * (ABNORMAL) C-Reactive Protein (09/19/2022 10:08 AM EDT) Pathologist [facility] C REACTIVE PROTEIN 8.7(H) 0.0 - 4.0 mg/L [facility] Blood 09/19/2022 10:0 8 AM EDT 09/19/2022 10:16 AM EDT Angela Rizzo PROCUREMENT SPECIALIST LAB BLOOD ORDERABLES Annalisa l Result Performing Organization Address City/[facility]/ZIP Co de Phone Number [address] [address] * (ABNORMAL) Comprehensive metabolic panel (09/19/2022 10:08 AM EDT) SODIUM 141 133 - 146 mmol/L [facility] POTASSIUM 3.7 3.3 - 5.1 mmol/L [facility] CHLORIDE 104 96 - 108 mmol/L [facility] CO2 28 21 - 35 mmol/L [facility] BUN 11 6 - 19 mg/dL [facility] CREATININE 0.60 0.5 - 1.5 mg/dL [facility] GLUCOSE 142(H) 70 - 99 mg/dL [facility] ALBUMIN 4.3 3.9 - 4.8 g/dL [facility] TOTAL PROTEIN 6.7 6.5 - 8.0 g/dL [facility] CALCIUM 9.4 8.4 - 10.3 mg/dL [facility] ALKALINE PHOSPHATASE 106 39 - 117 U/L [facility] TOTAL BILIRUBIN 0.5 0.0 - 1.2 mg/dL [facility] AST 21 0 - 37 U/L [facility] ALT 21 0 - 40 U/L [facility] GLOBULIN 2.4 1 - 4.8 g/dL [facility] EGFR 103 >59 mL/min/1.7 3m2 [facility] Comment:Estimated glomerular filtration rate calculated using the CKD-EPI refit equation. ANION GAP 13 10 - 20 mmol/L [facility] Blood 09/19/2022 10:0 8 AM EDT 09/19/2022 10:16 AM EDT Angela Rizzo NP LAB BLOOD ORDERABLES Annalisa l Result Performing Organization Address City/[facility]/ZIP Co de Phone Number [address] [address] * CBC (09/19/2022 10:08 AM EDT) WBC 6.34 4.00 - 11.00 K/uL [facility] RBC 4.72 3.72 - 5.30 M/uL [facility] HGB 14.1 11.4 - 15.9 g/dL [facility] HCT 43.3 34.2 - 46.8 % [facility] PLT 225 140 - 430 K/uL [facility] MCV 91.7 78.0 - 97.0 fL [facility] MCH 29.9 25.0 - 33.0 pg [facility] MCHC 32.6 32.0 - 36.0 g/dL [facility] RDW 13.6 11.0 - 16.0 % [facility] MPV 12.1 8.4 - 12.8 fl [facility] Blood 09/19/2022 10:0 8 AM EDT 09/19/2022 10:16 AM EDT Angela Rizzo NP LAB BLOOD ORDERABLES Annalisa l Result Performing Organization Address City/[facility]/ZIP Co de Phone Number [address] [address] * Immunoglobulin A (09/19/2022 10:08 AM EDT) IgA 166 70 - 400 mg/dL [facility] Blood 09/19/2022 10:0 8 AM EDT 09/19/2022 10:16 AM EDT [facility] Azalia Rizzo PROCUREMENT SPECIALIST LAB BLOOD ORDERABLES Annalisa l Result [facility] [address] [place] [address] * Tissue transglutaminase IgA (09/19/2022 10:08 AM EDT) TTG IGA ANTIBODY <1.2 <4.0 (Negative) U/mL [facility] Blood 09/19/2022 10:0 8 AM EDT 09/19/2022 10:17 AM EDT [facility] Azalia Rizzo PROCUREMENT SPECIALIST LAB BLOOD ORDERABLES Annalisa l Result [facility] [address] [place] [address] documented in this encounter Visit Diagnoses Diagnosis Need for hepatitis C screening test- Primary Special screening examination for other specified viral diseases Nausea Nausea alone Diarrhea, unspecified type documented in this encounter Care Teams Supervisor Fireworks Assembly Relationship Specialty Start Date End Date Roseann Lopez PA [address] [place] [address] [address] [place] [address] [email or web address] PCP - General Unknown Provider Specialty 12/15/21 Esme Claudio MD [address] [place] [address] [email or web address] Historical LMR Provider 12/24/16 Esme Claudio MD [address] [place] [address] [email or web address] Insurance Assigned Provider 06/15/23 11/16/23 documented as of this encounter Additional Source Comments The information contained in this document represents components of the legal health record. It is not the complete legal health record.[facility]
--- OUTSIDE RECORDS SUMMARY | 2024-12-08 16:18 | XMS_ITS | Encounter Summary ---
Author Organization [facility] Address [address] [place] [address] Phone Care Team Providers Care Gas And Oil Checker Name Role Phone Esme Claudio MD Unavailable [phone] Roseann Lopez Primary Care Provider [phone] Cullen Corrigan MD Unavailable [phone] Esme Claudio MD Unavailable [phone] Reason for Referral * MRI/CAT Scan - Closed Specialty Diagnoses / Procedures Referred By Contkavitha t Referred To Contact Radiology Diagnoses Acute renal failure, unspecified acute renal failure type Procedures CT Abdomen/Pelvis CHG CT SCAN,ABDOMENT AND PELVIS,W/O CONTRAST CHG CT SCAN,ABDOMENT AND PELVIS,W CONTRAST CHG CT SCAN,ABDOMENT AND PELVIS,COMBO Esme Claudio MD Phone: tel: fax: [email or web address] Referral ID Status Reason Start Date Expiration Date Visits Re quested Visits Authorized [id number] Closed 06/05/2022 08/03/2022 1 1 Encounter Details Date Type Department Care Team (Late st Contact Info) Description 06/08/2022 Transcribe Orders [facility] Department [address] [place] [address] Esme Claudio MD [address] [place] [address] [email or web address] Acute renal failure, unspecified acute renal failure type (Primary Dx) Social History Tobacco Use [...] documented as of this encounter Results * CT ABDOMEN/PELVIS (KIDNEY STONE) WITHOUT CONTRAST (07/04/2022 11:06 AM EDT) Anatomical Region Laterality Modality Abdomen, Pelvis Computed Tomogra phy 07/04/2022 8:00 PM EDT Impressions 07/04/2022 8:04 PM EDT No urolithiasis or hydronephrosis. Narrative 07/04/2022 8:[address] ABDOMEN/PELVIS (KIDNEY STONE) WITHOUT CONTRAST TECHNIQUE: Multidetector-row CT of the abdomen and pelvis was performed without intravenous contrast using tailored dose modulation techniques. Images were reconstructed in the axial, coronal, and sagittal planes. COMPARISON: US KIDNEYS ABSENCE OF INTRAVENOUS CONTRAST DECREASES SENSITIVITY FOR DETECTION OF FOCAL LESIONS AND VASCULAR PATHOLOGY. FINDINGS: Lower Chest: Normal. Liver: No suspicious focal lesion. Biliary: No bile duct dilation. Noninflamed gallbladder. Spleen: No splenomegaly or suspicious focal lesion. Pancreas: No mass or main duct dilation. Adrenal Glands: No nodule. Kidneys/Ureters: No urolithiasis, hydronephrosis, or contour deforming renal mass. Pelvic Organs/Bladder: Age-appropriate CT appearance of uterus/adnexa. No bladder lumen calculi. Bowel: No abnormal wall thickening or distension. Noninflamed colonic diverticula. Noninflamed appendix. Peritoneum/Retroperitoneum: No free fluid, free air, or mass. Lymph Nodes: No lymphadenopathy. Vessels: No aortic aneurysm. Atherosclerotic changes. Bones/Soft Tissues: No destructive osseous lesion. Degenerative changes. Procedure Note Austin Donaldson MD - 07/04/2022 CT ABDOMEN/PELVIS (KIDNEY STONE) WITHOUT CONTRAST TECHNIQUE: Multidetector-row CT of the abdomen and pelvis was performedwithout intravenous contrast using tailored dose modulation techniques.Images were reconstructed in the axial, coronal, and sagittal planes. COMPARISON: US KIDNEYS ABSENCE OF INTRAVENOUS CONTRAST DECREASES SENSITIVITY FOR DETECTION OFFOCAL LESIONS AND VASCULAR PATHOLOGY. FINDINGS: Lower Chest: Normal. Liver: No suspicious focal lesion. Biliary: No bile duct dilation. Noninflamed gallbladder. Spleen: No splenomegaly or suspicious focal lesion. Pancreas: No mass or main duct dilation. Adrenal Glands: No nodule. Kidneys/Ureters: No urolithiasis, hydronephrosis, or contour deformingrenal mass. Pelvic Organs/Bladder: Age-appropriate CT appearance of uterus/adnexa. Nobladder lumen calculi. Bowel: No abnormal wall thickening or distension. Noninflamed colonicdiverticula. Noninflamed appendix. Peritoneum/Retroperitoneum: No free fluid, free air, or mass. Lymph Nodes: No lymphadenopathy. Vessels: No aortic aneurysm. Atherosclerotic changes. Bones/Soft Tissues: No destructive osseous lesion. Degenerative changes. IMPRESSION: No urolithiasis or hydronephrosis. Esme Claudio MD [facility] CT ABD/PELVIS Final Result documented in this encounter Visit Diagnoses Diagnosis Acute renal failure, unspecified acute renal failure type- Primary Acute renal failure, unspecified acute renal failure type documented in this encounter Care Teams Gas And Oil Checker Relationship Specialty Start Date End Date Roseann Lopez PA [address] [place] [address] [address] [place] [address] [email or web address] PCP - General Unknown Provider Specialty 12/15/21 Esme Claudio MD [address] [place] [address] [email or web address] Historical LMR Provider 12/24/16 Cullen Corrigan MD [address] [place] [address] [email or web address] Insurance Assigned Provider 07/14/22 09/15/22 Esme Claudio MD [address] [place] [address] [email or web address] Insurance Assigned Provider 06/15/23 11/16/23 documented as of this encounter Additional Source Comments The information contained in this document represents components of the legal health record. It is not the complete legal health record.[facility]
== END 2024-12-08 15:58 | disposition home or self-care (01) ==
LOC: HO.HGI 14:57
PROVIDERS: Visit Provider Nurse Practitioner
DX: R11.2 Nausea with vomiting, unspecified (principal); M62.08 Separation of muscle (nontraumatic), other site; R10.9 Unspecified abdominal pain; R81 Glycosuria; R73.01 Impaired fasting glucose; M25.50 Pain in unspecified joint
CPT/HCPCS: 99203

== ENCOUNTER 2024-12-18 15:20 | Outpatient (REF) | payer OTHER, SELFPAY ==
[2024-12-22 23:28] LABS: Transglutaminase Ab IgG <1.0 U/mL
[2024-12-23 11:48] LABS: Anti Nuclear Antibody Screen NEGATIVE (NEGATIVE)
[2024-12-24 03:39] LABS: Beta-2 Glycoprotein I Ab IgG <2.0 U/mL (<20.0); Beta-2 Glycoprotein I Ab IgM 2.0 U/mL (<20.0); Beta-2 Glycoprotein I Ab, IgA <2.0 U/mL (<20.0); Phosphatidylserine PT IgM 16 U (<=30)
== END 2024-12-18 15:21 | disposition home or self-care (01) ==
LOC: HO.LAB 15:20
PROVIDERS: PCP Physician Assistant; Visit Provider Nurse Practitioner
DX: Z13.1 Encounter for screening for diabetes mellitus (principal); R81 Glycosuria; M25.50 Pain in unspecified joint; R11.2 Nausea with vomiting, unspecified
CPT/HCPCS: 36415; 83036; 83516; 85652; 86038; 86039; 86140; 86146; 86147; 86200; 86364; 86431

== ENCOUNTER 2024-12-25 15:59 | Outpatient (REF) | payer OTHER, SELFPAY ==
--- OUTSIDE RECORDS SUMMARY | 2009-08-30 | XMS_ITS | Encounter Summary ---
Author Organization [facility] Address [address] [place] [address] Phone Care Team Providers Care Slice Cutting Machine Operator Helper Name Role Phone Unavailable Primary Care Provider Unavailabl e Encounter Details Date Type Department Care Team (Late st Contact Info) Description 08/30/2009 Hospital Encounter [facility],Outside Imaging 30 [place], [place] [phone] System, Provider Not In, PhD Partners [address] [address] Social History Tobacco Use Types Packs/Day Years [...] 9:30 PM EDT Dahlia Fajardo, JOÃO * [place] Suicide Severity Rating Scale (Screener/Recent Self-Report) Question [...] the complete legal health record.[facility]
--- OUTSIDE RECORDS SUMMARY | 2009-09-01 | XMS_ITS | Encounter Summary ---
Author Organization [facility] Address [address] [place] [address] Phone Care Team Providers Care Mailing Section Clerk Name Role Phone Unavailable Primary Care Provider Unavailabl e Encounter Details Date Type Department Care Team (Late st Contact Info) Description 09/01/2009 Hospital Encounter [facility],Outside Imaging 30 [place], [place] [phone] System, Provider Not In, PhD Partners [address] [address] Social History Tobacco Use Types Packs/Day Years [...] 9:30 PM EDT Dahlia Fajardo, JOÃO * [place] Suicide Severity Rating Scale (Screener/Recent Self-Report) Question [...] It is not the complete legal health record.[facility]
--- OUTSIDE RECORDS SUMMARY | 2010-09-04 | XMS_ITS | Encounter Summary ---
Author Organization [facility] Address [address] [place] [address] Phone Care Team Providers Care Youth Agent Name Role Phone Unavailable Primary Care Provider Unavailabl e Encounter Details Date Type Department Care Team (Late st Contact Info) Description 09/04/2010 Hospital Encounter [facility],Outside Imaging [address] [place], [place] [phone] System, Provider Not In, PhD Partners [address] [address] Social History Tobacco Use Types Packs/Day Years [...] 9:30 PM EDT Dahlia Fajardo, JOÃO * [place] Suicide Severity Rating Scale (Screener/Recent Self-Report) Question [...] It is not the complete legal health record.[facility]
--- OUTSIDE RECORDS SUMMARY | 2011-09-20 | XMS_ITS | Encounter Summary ---
Author Organization [facility] Address [address] [place] [address] Phone Care Team Providers Care Media Production Operator Name Role Phone Unavailable Primary Care Provider Unavailabl e Encounter Details Date Type Department Care Team (Late st Contact Info) Description 09/20/2011 Hospital Encounter [facility],Outside Imaging 30 [place], [place] [phone] System, Provider Not In, PhD Partners [address] [address] Social History Tobacco Use Types Packs/Day Years [...] 9:30 PM EDT Dahlia Fajardo, JOÃO * [place] Suicide Severity Rating Scale (Screener/Recent Self-Report) Question [...] It is not the complete legal health record.[facility]
--- OUTSIDE RECORDS SUMMARY | 2012-11-13 | XMS_ITS | Encounter Summary ---
Author Organization [facility] Address [address] [place] [address] Phone Care Team Providers Care Siding Stapler Name Role Phone Unavailable Primary Care Provider Unavailabl e Encounter Details Date Type Department Care Team (Late st Contact Info) Description 11/13/2012 Hospital Encounter [facility],Outside Imaging 30 [place], [place] [phone] System, Provider Not In, PhD Partners [address] [address] Social History Tobacco Use Types Packs/Day Years [...] 9:30 PM EDT Dahlia Fajardo, JOÃO * [place] Suicide Severity Rating Scale (Screener/Recent Self-Report) Question [...] It is not the complete legal health record.[facility]
--- OUTSIDE RECORDS SUMMARY | 2024-10-21 12:30 | XMS_ITS ---
Author Organization [facility] madeleine Address [address] [place] [address] Care Team Providers Care Director Of Services Name Role Phone Esme Claudio Primary Care Provider Austin Rios [phone] REASON FOR VISIT f/u swelling (IH) Encounters Encounter Location Date Provider Diagnosis [facility] [address] [place] [address] 10/21/2024 Austin Rios Plan Of Treatment Next Appt Details Provider Name:Austin Rios, 1 04/18/2024 08:30:00 AM, [address] [place], [address], Provider Name:Austin Rios, 0 04/22/2025 09:00:00 AM, [address] [place] [address], [phone], Progress Notes * RAND SAMANIEGODOB:1960 (64 yo F)Acc No.[id number]:10/21/2024 Progress Note Patient: RAND JESUS Provider: ANTONELLA Carter :1960 A ge:64 Y S ex:Female Date:10/21/2024 C HN#:[id number] Address[place] [id number] Pcp:Esme Claudio Subjective: * Chief Complaints: * f /u swelling (IH) Billing Information: * Procedure Codes: Care Plan Details* * Electronic signature of Austin Rios PA-C on 12/25/2024 at 06:15 PM EDT Sign off status: Pending * Provider: ANTONELLA Carter Date: 0 10/21/2024 Generated for Deanna callaway/Bart/Foreign on: 1 06:15 PM EDT
--- OUTSIDE RECORDS SUMMARY | 2024-12-25 18:15 | XMS_ITS | Encounter Summary ---
Author Organization [facility] Address [address] [facility] [address] [place] [address] Phone Care Team Providers Care Property Management Accountant Name Role Phone Esme Claudio MD Unavailable Roseann Lopez Primary Care Provider [phone] Encounter Details Date Type Department Care Team (Latest Contact Info) Description 03/20/2024 Transcribe Orders Virtual Department 30 [place] [address] Remberto Fletcher MD [address] [facility] [address] [place] [address] [email or web address] Essential hypertension (Primary Dx) Social History Tobacco [...] hypertension documented in this encounter Care Teams Property Management Accountant Relationship Specialty Start Date End Date Roseann Lopez PA [address] [place] [address] [address] [place] [address] [email or web address] PCP - General Unknown Provider Specialty 12/15/21 Esme Claudio MD [address] [place] [address] [email or web address] Historical LMR Provider 12/24/16 documented as of this encounter Additional Source Comments The information contained in this document represents components of the legal health record. It is not the complete legal health record.[facility]
--- OUTSIDE RECORDS SUMMARY | 2024-12-25 18:15 | XMS_ITS | Encounter Summary ---
Author Organization [facility] Address [address] [place] [address] Phone Care Team Providers Care Process Improvement Analyst Name Role Phone Esme Claudio MD Unavailable [phone] Roseann Lopez Primary Care Provider Esme Claudio MD Unavailable Encounter Details Date Type Department Care Team (Late st Contact Info) Description 12/14/2022 Transcribe Orders Virtual Department [address] [place] [address] Roseann Lopez PA [address] [place] [address] [email or web address] Breast screening (Primary Dx) Social History [...] unspecified documented in this encounter Care Teams Process Improvement Analyst Relationship Specialty Start Date End Date Roseann Lopez PA [address] [place] [address] [address] [place] [address] [email or web address] PCP - General Unknown Provider Specialty 12/15/21 Esme Claudio MD [address] [place] [address] [email or web address] Historical LMR Provider 12/24/16 Esme Claudio MD [address] [place] [address] [email or web address] Insurance Assigned Provider 06/15/23 11/16/23 documented as of this encounter Additional Source Comments The information contained in this document represents components of the legal health record. It is not the complete legal health record.[facility]
--- OUTSIDE RECORDS SUMMARY | 2024-12-25 18:15 | XMS_ITS | Encounter Summary ---
Author Organization [facility] Address [address] [place] [address] Phone Care Team Providers Care Helper Steel Fabrication Name Role Phone Tiffanie [place] MD Unavailable Destin Freed MD Unavailable Alisia Velasquez MD Unavailable Presley Bhandari MD Unavailable Ana Lilia Mclain-C Unavailable Esme Claudio MD Unavailable Neeraj Win MD Unavailable Esme Aaron MD Unavailable [phone] Jose Carlos Katz MD Unavailable Esme Claudio MD Primary Care Provider + Esme Claudio MD Unavailable Cullen Corrigan MD Unavailable Roseann Lopez Primary Care Provider [phone] Cullen Corrigan MD Unavailable Esme Claudio MD Unavailable [phone] Encounter Details Date Type Department Care Team (Late st Contact Info) Description 09/10/2017 Ancillary Orders [facility] [place] - [address] [address] Katya Burnham PA-C [address] [place] [address] [email or web address] Asthma, unspecified asthma severity, unspecified whether complicated, [...] evidence of active cardiopulmonary disease. POS - [id number] Narrative 09/10/2017 5:05 PM EDT HISTORY: Cough, [...] evidence of active cardiopulmonary disease. POS - [id number] us Katya Burnham PA-C IMG XR CHEST [...] documented as of this encounter Care Teams Helper Steel Fabrication Relationship Specialty Start Date End Date Esme Claudio MD [address] [place] [address] PCP - General Family Medicine 02/08/17 12/14/21 Roseann Lopez PA [address] [place] [address] [address] [place] [address] [email or web address] PCP - General Unknown Provider Specialty 12/15/21 Tiffanie [place] MD [address] [place] [address] [address] [place] [address] Historical LMR Provider 12/24/16 2 Destin Freed MD [address] [place] [address] [email or web address] Historical LMR Provider 12/24/16 03/18/21 Alisia Velasquez MD [address] [place] [address], 2[address] [place] [address] Historical LMR Provider 12/24/16 Presley Bhandari MD [address] [place] [address] Historical LMR Provider 12/24/16 Ana Lilia Mclain PA-C 4 [facility], [place] [address] Historical LMR Provider 12/24/16 03/18/21 Esme Claudio MD [address] [place] [address] Historical LMR Provider 12/24/16 Neeraj Win MD [address] [address] Historical LMR Provider 12/24/16 03/18/21 Esme Aaron MD [address] [place] [address] Historical LMR Provider 12/24/16 2 Jose Carlos Katz MD [address] [place] [address] Orthopedics & Sports [facility], [place] [address] Historical LMR Provider 12/24/16 2 Esme Claudio MD [address] [place] [address] Insurance Assigned Provider 07/12/18 10/15/20 Cullen Corrigan MD [address] [place] [address] Insurance Assigned Provider 10/15/20 06/17/21 Cullen Corrigan MD [address] [place] [address] [email or web address] Insurance Assigned Provider 07/14/22 09/15/22 Esme Claudio MD [address] [place] [address] Insurance Assigned Provider 06/15/23 11/16/23 documented as of this encounter Additional Source Comments The information contained in this document represents components of the legal health record. It is not the complete legal health record.[facility]
--- OUTSIDE RECORDS SUMMARY | 2024-12-25 18:15 | XMS_ITS | Encounter Summary ---
Author Organization [facility] Address [address] [place] [address] Phone Care Team Providers Care Molder Setter Name Role Phone Tiffanie [place] MD Unavailable Destin Freed MD Unavailable Alisia Velasquez MD Unavailable Presley Bhandari MD Unavailable Ana Lilia Mclain-C Unavailable Esme Claudio MD Unavailable Neeraj Win MD Unavailable Esme Aaron MD Unavailable [phone] Jose Carlos Katz MD Unavailable Esme Claudio MD Primary Care Provider + Esme Claudio MD Unavailable Cullen Corrigan MD Unavailable Roseann Lopez Primary Care Provider Cullen Corrigan MD Unavailable Esme Claudio MD Unavailable Encounter Details Date Type Department Care Team (Late st Contact Info) Description 06/19/2018 Ancillary Orders [facility] Department [address] [place] [address] Roseann Lopez PA [address] [place] [address] [email or web address] Dyspnea, unspecified type; Bloating; Family history [...] AM EDT) Max BP Systolic 170 mmHg [facility] Max BP Diastolic 88 mmHg [facility] Max HR 113 BPM [facility] Resting HR 90 BPM [facility] Resting BP Systolic 140 mmHg [facility] Resting BP Diastolic 88 mmHg [facility] Peak METS 1.0 METS [facility] Peak HR 110 BPM [facility] Anatomical Region Laterality Modality Heart Other 06/19/2018 [...] EKG reviewed with Dr. Amaya. Christa Torres, WELL DRILL OPERATOR, MPH . Roseann BERMAN CV NM CARDIAC [...] documented as of this encounter Care Teams Molder Setter Relationship Specialty Start Date End Date Esme Claudio MD [address] [place] [address] [email or web address] PCP - General Family Medicine 02/08/17 12/14/21 Roseann Lopez PA [address] [place] [address] [address] [place] [address] [email or web address] PCP - General Unknown Provider Specialty 12/15/21 Tiffanie [place] MD [address] [place] [address] Historical LMR Provider 12/24/16 2 Destin Freed MD [address] [place] [address] [email or web address] Historical LMR Provider 12/24/16 03/18/21 Alisia Velasquez MD 15 [facility], 2nd [place] [address] [email or web address] Historical LMR Provider 12/24/16 Presley Bhandari MD [address] [place] [address] Historical LMR Provider 12/24/16 Ana Lilia Mclain PA-C [address] [place] [address] Orthopedics & Sports [facility], [place] [address] [email or web address] Historical LMR Provider 12/24/16 03/18/21 Esme Claudio MD [address] [place] [address] Historical LMR Provider 12/24/16 Neeraj Win MD 22 [facility], [address] [place] [address] [email or web address] Historical LMR Provider 12/24/16 03/18/21 Esme Aaron MD [address] [place] [address] Historical LMR Provider 12/24/16 2 Jose Carlos Katz MD [address] [place] [address] Orthopedics & Sports [facility], [place] [address] [email or web address] Historical LMR Provider 12/24/16 2 Esme Claudio MD [address] [place] [address] [email or web address] Insurance Assigned Provider 07/12/18 10/15/20 Cullen Corrigan MD [address] [place] [address] [email or web address] Insurance Assigned Provider 10/15/20 06/17/21 Cullen Corrigan MD [address] [place] [address] Insurance Assigned Provider 07/14/22 09/15/22 Esme Claudio MD [address] [place] [address] [email or web address] Insurance Assigned Provider 06/15/23 11/16/23 documented as of this encounter Additional Source Comments The information contained in this document represents components of the legal health record. It is not the complete legal health record.[facility]
--- OUTSIDE RECORDS SUMMARY | 2024-12-25 18:15 | XMS_ITS | Encounter Summary ---
Author Organization [facility] Address [address] [place] [address] Phone Care Team Providers Care Cable Splicer Assistant Name Role Phone Esme Claudio MD Unavailable Esme Claudio MD Primary Care Provider + Cullen Corrigan MD Unavailable Roseann Lopez Primary Care Provider Cullen Corrigan MD Unavailable Esme Claudio MD Unavailable Encounter Details Date Type Department Care Team (Late st Contact Info) Description 05/11/2021 Transcribe Orders Virtual Department 30 [place] [address] Esme Claudio MD [address] [place] [address] Breast screening (Primary Dx) Social History Tobacco [...] unspecified documented in this encounter Care Teams Cable Splicer Assistant Relationship Specialty Start Date End Date Esme Claudio MD [address] [place] [address] PCP - General Family Medicine 02/08/17 12/14/21 Roseann Lopez PA [address] [place] [address] [address] [place] [address] [email or web address] PCP - General Unknown Provider Specialty 12/15/21 Esme Claudio MD [address] [place] [address] [email or web address] Historical LMR Provider 12/24/16 Cullen Corrigan MD [address] [place] [address] 17970 Insurance Assigned Provider 10/15/20 06/17/21 Cullen Corrigan MD [address] [place] [address] 32151 Insurance Assigned Provider 07/14/22 09/15/22 Esme Claudio MD [address] [place] [address] 11545 Insurance Assigned Provider 06/15/23 11/16/23 documented as of this encounter Additional Source Comments The information contained in this document represents components of the legal health record. It is not the complete legal health record.[facility]
--- OUTSIDE RECORDS SUMMARY | 2024-12-25 18:15 | XMS_ITS | Encounter Summary ---
Author Organization [facility] Address [address] [place] [address] Phone Care Team Providers Care Wood Milling Machine Hand Name Role Phone Tiffanie Crow MD Unavailable [...] Multiple Roseann Lopez PA Phone: tel: fax: [email or web address] Referral ID Status Reason Start Date Expiration Date Visits Re quested Visits Authorized [id number] Closed 06/12/2018 06/12/2019 1 1 Encounter Details Date Type Department Care Team (Late st Contact Info) Description 06/12/2018 Transcribe Orders Virtual Department 30 [place] [address] Roseann Lopez PA [address] [place] [address] Dyspnea, unspecified type (Primary Dx); Bloating; Family [...] documented as of this encounter Care Teams Wood Milling Machine Hand Relationship Specialty Start Date End Date Esme Claudio MD [address] [place] [address] PCP - General Family Medicine 02/08/17 12/14/21 Roseann Lopez PA [address] [place] [address] 100 [place] [address] [email or web address] PCP - General Unknown Provider Specialty 12/15/21 Tiffanie Crow MD [address] [place] [address] 3 [place] [address] Historical LMR Provider 12/24/16 2 Destin Freed MD [address] [place] [address] [email or web address] Historical LMR Provider 12/24/16 03/18/21 Alisia Velasquez MD [address] [place] [address], [address] [place] [address] [email or web address] Historical LMR Provider 12/24/16 Presley Bhandari MD [address] [place] [address] Historical LMR Provider 12/24/16 Ana Lilia Mclain PA-C [address] [place] [address] Orthopedics & Sports Medicine, [place] [address] [email or web address] Historical LMR Provider 12/24/16 03/18/21 Esme Claudio MD [address] [place] [address] [email or web address] Historical LMR Provider 12/24/16 Neeraj Win MD [address] [address] Historical LMR Provider 12/24/16 03/18/21 Esme Aaron MD [address] [place] [phone] Historical LMR Provider 12/24/16 2 Jose Carlos Katz MD [address] [place] [address] [facility], [place] [address] Historical LMR Provider 12/24/16 2 Esme Claudio MD [address] [place] [address] Insurance Assigned Provider 07/12/18 10/15/20 Cullen Corrigan MD [address] [place] [address] Insurance Assigned Provider 10/15/20 06/17/21 Cullen Corrigan MD [address] [place] [address] Insurance Assigned Provider 07/14/22 09/15/22 Esme Claudio MD [address] [place] [address] Insurance Assigned Provider 06/15/23 11/16/23 documented as of this encounter Additional Source Comments The information contained in this document represents components of the legal health record. It is not the complete legal health record.[facility]
--- OUTSIDE RECORDS SUMMARY | 2024-12-25 18:15 | XMS_ITS | Encounter Summary ---
Author Organization [facility] Address [address] [place] [address] Phone Care Team Providers Care Pmo Project Manager Name Role Phone Esme Claudio MD Unavailable Roseann Lopez Primary Care Provider Esme Claudio MD Unavailable Encounter Details Date Type Department Care Team (Late st Contact Info) Description 01/09/2023 Ancillary Orders [facility], X-Ray - [address] [place] [address] Roseann Lopez PA [address] [place] [address] [email or web address] Vomiting, unspecified vomiting type, unspecified whether nausea [...] present documented in this encounter Care Teams Pmo Project Manager Relationship Specialty Start Date End Date Roseann Lopez PA [address] [place] [address] [email or web address] PCP - General Unknown Provider Specialty 12/15/21 Esme Claudio MD [address] [place] [address] Historical LMR Provider 12/24/16 Esme Claudio MD [address] [place] [address] Insurance Assigned Provider 06/15/23 11/16/23 documented as of this encounter Additional Source Comments The information contained in this document represents components of the legal health record. It is not the complete legal health record.[facility]
--- OUTSIDE RECORDS SUMMARY | 2024-12-25 18:15 | XMS_ITS | Encounter Summary ---
Author Organization [facility] Address [address] [place] [address] Phone Care Team Providers Care Talent Acquisition Consultant Name Role Phone Tiffanie Crow MD Unavailable Destin Freed MD Unavailable Alisia Velasquez MD Unavailable Presley Bhandari MD Unavailable Ana Lilia Mclain-C Unavailable Esme Claudio MD Unavailable Neeraj Win MD Unavailable Esme Aaron MD Unavailable [phone] Jose Carlos Katz MD Unavailable Esme Claudio MD Primary Care Provider + Esme Claudio MD Unavailable Cullen Corrigan MD Unavailable Roseann Lopez Primary Care Provider [phone] Cullen Corrigan MD Unavailable Esme Claudio MD Unavailable [phone] Encounter Details Date Type Department Care Team (Late st Contact Info) Description 09/08/2018 Ancillary Orders [facility] Department [address] [place], [place] [id number] Jennifer Cueto, SHIRA [address] [place] [address] Epigastric abdominal pain Social History Tobacco Use [...] structures. POS - [id number] us Jennifer Cueto WHEELCHAIR RENTAL CLERK IMG US ABDOMEN Final Re sult documented in this encounter Visit Diagnoses Diagnosis Epigastric abdominal pain Abdominal pain, epigastric Epigastric abdominal pain Abdominal pain, epigastric documented in this encounter Additional Health Concerns Infection Onset Date Last Indicated Resolved Time CoV-Risk 06/26/2019 06/27/2019 07/11/2019 1:23 AM EDT documented as of this encounter Care Teams Talent Acquisition Consultant Relationship Specialty Start Date End Date Esem Claudio MD [address] [place] [address] [email or web address] PCP - General Family Medicine 02/08/17 12/14/21 Roseann Lopez PA [address] [place] [address] [address] [place] [address] [email or web address] PCP - General Unknown Provider Specialty 12/15/21 Tiffanie Crow MD [address] [place] [address] 3 [place] [address] Historical LMR Provider 12/24/16 2 Destin Freed MD [address] [place] [address] [phone] [email or web address] Historical LMR Provider 12/24/16 03/18/21 Alisia Velasquez MD [address] [place] [address], [address] [place] [address] Historical LMR Provider 12/24/16 Presley Bhandari MD [address] [place] [address] Historical LMR Provider 12/24/16 Ana Lilia Mclain PA-C [address] [place] [address] Orth[facility] Sports Medicine, [place] [address] Historical LMR Provider 12/24/16 03/18/21 Esme Claudio MD [address] [place] [address] Historical LMR Provider 12/24/16 Neeraj Win MD [address] [address] [email or web address] Historical LMR Provider 12/24/16 03/18/21 Esme Aaron MD [address], [place] [address] Historical LMR Provider 12/24/16 2 Jose Carlos Katz MD [address] [place] [address] Orthopedics & Sports [facility], [place] [address] [email or web address] Historical LMR Provider 12/24/16 2 Esme Claudio MD [address] [place] [address] [email or web address] Insurance Assigned Provider 07/12/18 10/15/20 Cullen Corrigan MD [address] [place] [address] [email or web address] Insurance Assigned Provider 10/15/20 06/17/21 Cullen Corrigan MD [address] [place] [address] [email or web address] Insurance Assigned Provider 07/14/22 09/15/22 Esme Claudio MD [address] [place] [address] [email or web address] Insurance Assigned Provider 06/15/23 11/16/23 documented as of this encounter Additional Source Comments The information contained in this document represents components of the legal health record. It is not the complete legal health record.[facility]
--- OUTSIDE RECORDS SUMMARY | 2024-12-25 18:15 | XMS_ITS | Encounter Summary ---
Author Organization [facility] Address [address] [place] [address] Phone Care Team Providers Care School Bus Driver/Custodian Name Role Phone Esme Claudio MD Unavailable [phone] Esme Claudio MD Primary Care Provider + Cullen Corrigan MD Unavailable [phone] Roseann Lopez Primary Care Provider Cullen Corrigan MD Unavailable [phone] Esme Claudio MD Unavailable [phone] Encounter Details Date Type Department Care Team (Late st Contact Info) Description 05/11/2021 Procedure Pass [facility] - [address] [place] [address] Social History Tobacco Use Types Packs/Day Years [...] on filedocumented in this encounter Care Teams School Bus Driver/Custodian Relationship Specialty Start Date End Date Esme Claudio MD [address] [place] [address] [place] [address] PCP - General Family Medicine 02/08/17 12/14/21 Roseann Lopez PA [address] [place] [address] [email or web address] PCP - General Unknown Provider Specialty 12/15/21 Esme Claudio MD [address] [place] [address] Historical LMR Provider 12/24/16 Cullen Corrigan MD [address] [place] [address] Insurance Assigned Provider 10/15/20 06/17/21 Cullen Corrigan MD [address] [place] [address] 31309 Insurance Assigned Provider 07/14/22 09/15/22 Esme Claudio MD [address] [place] [address] 11742 Insurance Assigned Provider 06/15/23 11/16/23 documented as of this encounter Additional Source Comments The information contained in this document represents components of the legal health record. It is not the complete legal health record.[facility]
--- OUTSIDE RECORDS SUMMARY | 2024-12-25 18:15 | XMS_ITS | Encounter Summary ---
Author Organization [facility] Address [address] [place] [address] Phone Care Team Providers Care Vice President Of Instruction Name Role Phone Tiffanie Crow MD Unavailable Destin Freed MD Unavailable Alisia Velasquez MD Unavailable Persley Bhandari MD Unavailable Ana Lilia Mclain-C Unavailable Esme Claudio MD Unavailable Neeraj Win MD Unavailable Esme Aaron MD Unavailable [phone] Jose Carlos Katz MD Unavailable Esme Claudio MD Primary Care Provider + Esme Claudio MD Unavailable Cullen Corrigan MD Unavailable Roseann Lopez Primary Care Provider [phone] Cullen Corrigan MD Unavailable Esme Claudio MD Unavailable [phone] Encounter Details Date Type Department Care Team (Late st Contact Info) Description 06/22/2020 Procedure Pass [facility] - [address] [place] [address] Social History Tobacco Use Types Packs/Day Years [...] on filedocumented in this encounter Care Teams Vice President Of Instruction Relationship Specialty Start Date End Date Esme Claudio MD [address] [place] [address] [email or web address] PCP - General Family Medicine 02/08/17 12/14/21 Roseann Lopez PA [address] [place] [address] [address] [place] [address] [email or web address] PCP - General Unknown Provider Specialty 12/15/21 Tiffanie Crow MD [address] [facility] 3 [place] [address] Historical LMR Provider 12/24/16 2 Destin Freed MD [address] [place] [address] [email or web address] Historical LMR Provider 12/24/16 03/18/21 Alisia Velasquez MD [facility] 2nd [place] [address] [email or web address] Historical LMR Provider 12/24/16 Presley Bhandari MD [address] [place] [address] Historical LMR Provider 12/24/16 Ana Lilia Mclain PA-C [address] [place] [address] Orthopedics & Sports [facility], [place] [address] Historical LMR Provider 12/24/16 03/18/21 Esme Claudio MD [address] [place] [address] Historical LMR Provider 12/24/16 Neeraj Win MD [address] [place] [address] Historical LMR Provider 12/24/16 03/18/21 Esme Aaron MD [address] [place] [address] Historical LMR Provider 12/24/16 2 Jose Carlos Katz MD [address] [place] [address] Orthopedics Sports [facility], [place] [address] Historical LMR Provider 12/24/16 2 Esme Claudio MD [address] [place] [address] Insurance Assigned Provider 07/12/18 10/15/20 Cullen Corrigan MD [address] [place] [address] Insurance Assigned Provider 10/15/20 06/17/21 Cullen Corrigan MD [address] [place] [address] [email or web address] Insurance Assigned Provider 07/14/22 09/15/22 Esme Claudio MD [address] [place] [address] [email or web address] Insurance Assigned Provider 06/15/23 11/16/23 documented as of this encounter Additional Source Comments The information contained in this document represents components of the legal health record. It is not the complete legal health record.[facility]
--- OUTSIDE RECORDS SUMMARY | 2024-12-25 18:15 | XMS_ITS | Encounter Summary ---
Author Organization [facility] Address [address] [place] [address] Phone Care Team Providers Care Copy Camera Operator Name Role Phone Esme Claudio MD Unavailable [phone] Roseann Lopez Primary Care Provider [phone] Esme Claudio MD Unavailable [phone] Encounter Details Date Type Department Care Team (Late st Contact Info) Description 12/14/2022 Procedure Pass [facility] - [address] [place] [address] Social History Tobacco Use Types Packs/Day Years [...] on filedocumented in this encounter Care Teams Copy Camera Operator Relationship Specialty Start Date End Date Roseann Lopez PA [address] [place] [address] [address] [place] [address] [email or web address] PCP - General Unknown Provider Specialty 12/15/21 Esme Claudio MD [address] [place] [address] [email or web address] Historical LMR Provider 12/24/16 Esme Claudio MD [address] [place] [address] [email or web address] Insurance Assigned Provider 06/15/23 11/16/23 documented as of this encounter Additional Source Comments The information contained in this document represents components of the legal health record. It is not the complete legal health record.[facility]
--- OUTSIDE RECORDS SUMMARY | 2024-12-25 18:15 | XMS_ITS | Encounter Summary ---
Author Organization [facility] Address [address] [place] [address] Phone Care Team Providers Care Manager Data Warehousing Name Role Phone Tiffanie Crow MD Unavailable Destin Freed MD Unavailable Alisia Velasquez MD Unavailable Presley Bhandari MD Unavailable Ana Lilia Mclain-C Unavailable Esme Claudio MD Unavailable Neeraj Win MD Unavailable Esme Aaron MD Unavailable [phone] Jose Carlos Katz MD Unavailable Esme Claudio MD Primary Care Provider + Esme Claudio MD Unavailable Cullen Corrigan MD Unavailable Roseann Lopez Primary Care Provider [phone] Cullen Corrigan MD Unavailable Esme Claudio MD Unavailable [phone] Encounter Details Date Type Department Care Team (Late st Contact Info) Description 07/04/2020 Ancillary Orders [facility],Outside Imaging 30 [place], [place] [phone] System, Provider Not In, [place] [address] Social History Tobacco Use Types Packs/Day Years [...] filedocumented in this encounter Care Teams Manager Data Warehousing Relationship Specialty Start Date End Date Esme Claudio MD [address] [place] [address] [email or web address] PCP - General Family Medicine 02/08/17 12/14/21 Roseann Lopez PA [address] [place] [address] [address] [place] [address] [email or web address] PCP - General Unknown Provider Specialty 12/15/21 Tiffanie Crow MD [address] [place] [address] 3 [place] [address] Historical LMR Provider 12/24/16 2 Destin Freed MD [address] [place] [address] [email or web address] Historical LMR Provider 12/24/16 03/18/21 Alisia Velasquez MD [address] [place] [address], [address] [place] [address] Historical LMR Provider 12/24/16 Presley Bhandari MD [address] [place] [address] Historical LMR Provider 12/24/16 Ana Lilia Mclain PA-C [address] [place] [address] Orthoped[facility], [place] [address] Historical LMR Provider 12/24/16 03/18/21 Esme Claudio MD [address] [place] [address] Historical LMR Provider 12/24/16 Neeraj Win MD 22 [facility], [address] [address] Historical LMR Provider 12/24/16 03/18/21 Esme Aaron MD [address] [place] [address] Historical LMR Provider 12/24/16 2 Jose Carlos Katz MD [address] [place] [address] Orthopedics [facility], [place] [address] Historical LMR Provider 12/24/16 2 Esme Claudio MD [address] [place] [address] [email or web address] Insurance Assigned Provider 07/12/18 10/15/20 Cullen Corrigan MD [address] [place] [address] [email or web address] Insurance Assigned Provider 10/15/20 06/17/21 Cullen Corrigan MD [address] [place] [address] [email or web address] Insurance Assigned Provider 07/14/22 09/15/22 Esme Claudio MD [address] [place] [address] [email or web address] Insurance Assigned Provider 06/15/23 11/16/23 documented as of this encounter Additional Source Comments The information contained in this document represents components of the legal health record. It is not the complete legal health record.[facility]
--- OUTSIDE RECORDS SUMMARY | 2024-12-25 18:15 | XMS_ITS | Encounter Summary ---
Author Organization [facility] Address [address] [place] [address] Phone Care Team Providers Care Owner Professional Engineer Name Role Phone Tiffanie Crow MD Unavailable Detsin Freed MD Unavailable Alisia Velasquez MD Unavailable Presley Bhandari MD Unavailable Ana Lilia Mclain-C Unavailable Esme Claudio MD Unavailable Neeraj Win MD Unavailable Esme Aaron MD Unavailable [phone] Jose Carlos Katz MD Unavailable Esme Claudio MD Primary Care Provider + Esme Claudio MD Unavailable Cullen Corrigan MD Unavailable Roseann Lopez Primary Care Provider [phone] Cullen Corrigan MD Unavailable Esme Claudio MD Unavailable [phone] Encounter Details Date Type Department Care Team (Latest Contact Info) Description 02/08/2017 Transcribe Orders [address] [place] [address] Mark Ferris MD [address] [place] [address] Frequent bowel movements (Primary Dx) Social History [...] TTG IGA ANTIBODY <1.2 <4.0 (Negative) U/mL [facility] DPT OF LAB MED AND PAT+ Blood 02/08/2017 11:1 5 AM EST 02/08/2017 11:18 AM EST us Mark Ferris MD LAB BLOOD ORDERABLES Final Resul t [facility] DPT OF LAB MED AND PAT+ [address] [place] [address] * Immunoglobulin A (02/08/2017 11:15 AM EST) IgA 153 70 - 400 mg/dL [facility] Blood 02/08/2017 11:1 5 AM EST 02/08/2017 11:18 AM EST us Mark Ferris MD LAB BLOOD ORDERABLES Final Resul t [facility] [address] [place] [address] documented in this encounter Visit Diagnoses Diagnosis Frequent bowel movements- Primary Other symptoms involving digestive system documented in this encounter Additional Health Concerns Infection Onset Date Last Indicated Resolved Time CoV-Risk 06/26/2019 06/27/2019 07/11/2019 1:23 AM EDT documented as of this encounter Care Teams Owner Professional Engineer Relationship Specialty Start Date End Date Esme Claudio MD [address] [place] [address] [email or web address] PCP - General Family Medicine 02/08/17 12/14/21 Roseann Lopez PA [address] [place] [address] [address] [place] [address] [email or web address] PCP - General Unknown Provider Specialty 12/15/21 Tiffanie Crow MD [address] [place] [address] 3 [place] [address] Historical LMR Provider 12/24/16 2 Destin Freed MD [address] [place] [address] [email or web address] Historical LMR Provider 12/24/16 03/18/21 Alisia Velasquez MD [address] [place] [address] [email or web address] Historical LMR Provider 12/24/16 Presley Bhandari MD [address] [place] [address] Historical LMR Provider 12/24/16 Ana Lilia Mclain PA-C [address] [place] [address] [facility], [place] [address] [email or web address] Historical LMR Provider 12/24/16 03/18/21 Esme Claudio MD [address] [place] [address] Historical LMR Provider 12/24/16 Neeraj Win MD [address] [address] Historical LMR Provider 12/24/16 03/18/21 Esme Aaron MD [address] [place] [phone] Historical LMR Provider 12/24/16 2 Jose Carlos Katz MD [address] [place] [address] [facility], [place] [address] Historical LMR Provider 12/24/16 2 Esme Claudio MD [address] [place] [address] Insurance Assigned Provider 07/12/18 10/15/20 Cullen Corrigan MD [address] [place] [address] Insurance Assigned Provider 10/15/20 06/17/21 Cullen Corrigan MD [address] [place] [address] Insurance Assigned Provider 07/14/22 09/15/22 Esme Claudio MD [address] [place] [address] [email or web address] Insurance Assigned Provider 06/15/23 11/16/23 documented as of this encounter Additional Source Comments The information contained in this document represents components of the legal health record. It is not the complete legal health record.[facility]
--- OUTSIDE RECORDS SUMMARY | 2024-12-25 18:15 | XMS_ITS | Encounter Summary ---
Author Organization [facility] Address [address] [place] [address] Phone Care Team Providers Care Advertising Material Distributor Name Role Phone Tiffanie Crow MD Unavailable [phone] Destin Freed MD Unavailable Alisia Velasquez MD Unavailable [phone] Presley Bhandari MD Unavailable [phone] Ana Lilia Mclain-C Unavailable [phone] Esme Claudio MD Unavailable [phone] Neeraj Win MD Unavailable [phone] Esme Aaron MD Unavailable [phone] Jose Carlos Katz MD Unavailable [phone] Esme [...] rehabilitation Mark Ferris MD Phone: tel: fax: [email or web address] [facility] [address] [place] [address] Phone: tel: Referral ID Status Reason Start Date Expiration Date Visits Re quested Visits Authorized [id number] Closed 02/21/2017 02/21/2018 1 1 Encounter Details Date Type Department Care Team (Latest Contact Info) Description 02/21/2017 Transcribe Orders [facility] [address] [place] [address] Mark Ferris MD [address] [place] [address] [email or web address] Encounter for rehabilitation (Primary Dx) Social History [...] Diagnoses Orde r Schedule Ambulatory referral to [facility] Physical Therapy Outpatient Referral Routine Encounter for rehabilitation Ordered: 02/21/2017 documented as of this encounter Visit Diagnoses Diagnosis Encounter for rehabilitation- Primary documented in this encounter Additional Health Concerns Infection Onset Date Last Indicated Resolved Time CoV-Risk 06/26/2019 06/27/2019 07/11/2019 1:23 AM EDT documented as of this encounter Care Teams Advertising Material Distributor Relationship Specialty Start Date End Date Esme Claudio MD [address] [place] [address] PCP - General Family Medicine 02/08/17 12/14/21 Roseann Lopez PA [address] [place] [address] 100 [place] [address] [email or web address] PCP - General Unknown Provider Specialty 12/15/21 Tiffanie Crow MD [address] [place] [address] 3 [place] [address] Historical LMR Provider 12/24/16 2 Destin Freed MD [address] [place] [address] [email or web address] Historical LMR Provider 12/24/16 03/18/21 Alisia Velasquez MD [address] [place] [address], 2nd [place] [address] [email or web address] Historical LMR Provider 12/24/16 Presley Bhandari MD [address] [place] [address] Historical LMR Provider 12/24/16 Ana Lilia Mclain PA-C [address] [place] [address] [facility], [place] [address] [email or web address] Historical LMR Provider 12/24/16 03/18/21 Esme Claudio MD [address] [place] [address] Historical LMR Provider 12/24/16 Neeraj Win MD [address] [facility], [address] [place] [address] Historical LMR Provider 12/24/16 03/18/21 Esme Aaron MD [address] [place] [address] Historical LMR Provider 12/24/16 2 Jose Carlos Katz MD [address] [place] [address] [facility], [place] [address] Historical LMR Provider 12/24/16 2 Esme Claudio MD [address] [place] [address] Insurance Assigned Provider 07/12/18 10/15/20 Cullen Corrigan MD [address] [place] [address] Insurance Assigned Provider 10/15/20 06/17/21 Cullen Corrigan MD [address] [place] [address] Insurance Assigned Provider 07/14/22 09/15/22 Esme Claudio MD [address] [place] [address] Insurance Assigned Provider 06/15/23 11/16/23 documented as of this encounter Additional Source Comments The information contained in this document represents components of the legal health record. It is not the complete legal health record.[facility]
--- OUTSIDE RECORDS SUMMARY | 2024-12-25 18:15 | XMS_ITS | Encounter Summary ---
Author Organization [facility] Address [address] [place] [address] Phone Care Team Providers Care Broaching Machine Set Up Operator Name Role Phone Esme Claudio MD Unavailable [phone] Roseann Lopez Primary Care Provider Esme Claudio MD Unavailable [phone] Encounter Details Date Type Department Care Team (Late st Contact Info) Description 01/14/2023 Transcribe Orders Virtual Department [address] [place] [address] Roseann Lopez PA [address] [place] [address] [email or web address] Acute renal failure, unspecified acute renal failure [...] present documented in this encounter Care Teams Broaching Machine Set Up Operator Relationship Specialty Start Date End Date Roseann Lopez PA [address] [place] [address] 100 [place] [address] [email or web address] PCP - General Unknown Provider Specialty 12/15/21 Esme Claudio MD [address] [place] [address] Historical LMR Provider 12/24/16 Esme Claudio MD [address] [place] [address] Insurance Assigned Provider 06/15/23 11/16/23 documented as of this encounter Additional Source Comments The information contained in this document represents components of the legal health record. It is not the complete legal health record.[facility]
--- OUTSIDE RECORDS SUMMARY | 2024-12-25 18:15 | XMS_ITS | Encounter Summary ---
Author Organization [facility] Address [address] [place] [address] Phone Care Team Providers Care Heavy Media Operator Name Role Phone Tiffanie Crow MD Unavailable Destin Freed MD Unavailable Alisia Velasquez MD Unavailable Presley Bhandari MD Unavailable Ana Lilia Mclain-C Unavailable Esme Claudio MD Unavailable Neeraj Win MD Unavailable Esme Aaron MD Unavailable [phone] Jose Carlos Katz MD Unavailable Esme Claudio MD Primary Care Provider + Esme Claudio MD Unavailable Cullen Corrigan MD Unavailable Roseann Lopez Primary Care Provider [phone] Cullen Corrigan MD Unavailable Esme Claudio MD Unavailable [phone] Encounter Details Date Type Department Care Team (Late st Contact Info) Description 06/22/2020 Transcribe Orders [facility] Department [address] [place], [place] [id number] Esme Claudio MD [address] [place] [address] [email or web address] Breast screening (Primary Dx) Social History Tobacco [...] unspecified documented in this encounter Care Teams Heavy Media Operator Relationship Specialty Start Date End Date Esme Claudio MD [address] [place] [address] [email or web address] PCP - General Family Medicine 02/08/17 12/14/21 Roseann Lopez PA [address] [place] [address] [address] [place] [address] [email or web address] PCP - General Unknown Provider Specialty 12/15/21 Tiffanie Crow MD [address] [place] [address] 3 [place] [address] Historical LMR Provider 12/24/16 2 Destin Freed MD [address] [place] [address] [email or web address] Historical LMR Provider 12/24/16 03/18/21 Alisia Velasquez MD [address] [facility], 2nd [place] [address] [email or web address] Historical LMR Provider 12/24/16 Presley Bhandari MD [address] [place] [address] Historical LMR Provider 12/24/16 Ana Lilia Mclain PA-C [address] [place], [place] [address]s & Sports [facility] [place] [address] Historical LMR Provider 12/24/16 03/18/21 Esme Claudio MD [address] [place] [address] Historical LMR Provider 12/24/16 Neeraj Win MD [address] [place] [address] [email or web address] Historical LMR Provider 12/24/16 03/18/21 Esme Aaron MD [address] [place] [phone] Historical LMR Provider 12/24/16 2 Jose Carlos Katz MD [address] [place] [address] Orthopedics & Sports [facility], [place] [address] [email or web address] Historical LMR Provider 12/24/16 2 Esme Claudio MD [address] [place] [address] Insurance Assigned Provider 07/12/18 10/15/20 Cullen Corrigan MD [address] [place] [address] Insurance Assigned Provider 10/15/20 06/17/21 Cullen Corrigan MD [address] [place] [address] [email or web address] Insurance Assigned Provider 07/14/22 09/15/22 Esme Claudio MD [address] [place] [address] [email or web address] Insurance Assigned Provider 06/15/23 11/16/23 documented as of this encounter Additional Source Comments The information contained in this document represents components of the legal health record. It is not the complete legal health record.[facility]
--- OUTSIDE RECORDS SUMMARY | 2024-12-25 18:15 | XMS_ITS | Encounter Summary ---
Author Organization [facility] Address [address] [place] [address] Phone Care Team Providers Care Professor Of Finance Name Role Phone Tiffanie Crow MD Unavailable Destin Freed MD Unavailable Alisia Velasquez MD Unavailable Presley Bhandari MD Unavailable Ana Lilia Mclain-C Unavailable Esme Claudio MD Unavailable Neeraj Win MD Unavailable Esme Aaron MD Unavailable [phone] Jose Carlos Katz MD Unavailable Esme Claudio MD Primary Care Provider + Esme Claudio MD Unavailable Cullen Corrigan MD Unavailable Roseann Lopez Primary Care Provider [phone] Cullen Corrigan MD Unavailable Esme Claudio MD Unavailable [phone] Encounter Details Date Type Department Care Team (Late st Contact Info) Description 06/11/2018 Transcribe Orders [facility] Department [address] [place], [place] [phone] Roseann Lopez PA [address] [place] [address] [address] [place] [address] [email or web address] Dysphagia, unspecified type (Primary Dx) Social [...] documented as of this encounter Care Teams Professor Of Finance Relationship Specialty Start Date End Date Esme Claudio MD [address] [place] [address] [email or web address] PCP - General Family Medicine 02/08/17 12/14/21 Roseann Lopez PA [address] [place] [address] [address] [place] [address] [email or web address] PCP - General Unknown Provider Specialty 12/15/21 Tiffanie Crow MD [address] [place] [address] 3 [place] [address] Historical LMR Provider 12/24/16 2 Destin Freed MD [address] [place] [address] [email or web address] Historical LMR Provider 12/24/16 03/18/21 Alisia Velasquez MD [address] [facility], 2nd [place] [address] [email or web address] Historical LMR Provider 12/24/16 Presley Bhandari MD [address] [place] [address] Historical LMR Provider 12/24/16 Ana Lilia Mclain PA-C [address] [place] [address] [facility], [place] [address] [email or web address] Historical LMR Provider 12/24/16 03/18/21 Esme Claudio MD [address] [place] [address] [email or web address] Historical LMR Provider 12/24/16 Neeraj Win MD [address] [facility], [address] [place] [address] [email or web address] Historical LMR Provider 12/24/16 03/18/21 Esme Aaron MD [address], [place] [address] Historical LMR Provider 12/24/16 2 Jose Carlos Katz MD [address] [place] [address] [facility], [place] [address] [email or web address] Historical LMR Provider 12/24/16 2 Esme Claudio MD [address] [place] [address] [email or web address] Insurance Assigned Provider 07/12/18 10/15/20 Cullen Corrigan MD [address] [place] [address] [email or web address] Insurance Assigned Provider 10/15/20 06/17/21 Cullen Corrigan MD [address] [place] [address] Insurance Assigned Provider 07/14/22 09/15/22 Esme Claudio MD [address] [place] [address] [email or web address] Insurance Assigned Provider 06/15/23 11/16/23 documented as of this encounter Additional Source Comments The information contained in this document represents components of the legal health record. It is not the complete legal health record.[facility]
--- OUTSIDE RECORDS SUMMARY | 2024-12-25 18:15 | XMS_ITS | Encounter Summary ---
Author Organization [facility] Address [address] [place] [address] Phone Care Team Providers Care Flight Radio Officer Name Role Phone Esme Claudio MD Unavailable Roseann Lopez Primary Care Provider Esme Claudio MD Unavailable Encounter Details Date Type Department Care Team (Late st Contact Info) Description 12/14/2022 Transcribe Orders [facility] [address] [place] [address] Roseann Lopez PA [address] [place] [address] [email or web address] Stomach ache; Elevated C-reactive protein (CRP); Low [...] EDT) PHOSPHORUS 3.3 2.7 - 4.5 mg/dL [facility] Blood 12/14/2022 10:5 6 AM EDT 12/14/2022 10:59 AM EDT us Concha BERMAN LAB BLOOD ORDERABLES Final Result [facility] [address] [place] [address] * Parathyroid hormone (PTH) (12/14/2022 10:56 AM EDT) PARATHYROID HORMONE 34 15 - 65 pg/mL [facility] Blood 12/14/2022 10:5 6 AM EDT 12/14/2022 11:00 AM EDT us Concha BERMAN LAB BLOOD ORDERABLES Final Result Performing Organization Address [facility]/ZIP Co de Phone Number [address] [address] * (ABNORMAL) C-Reactive Protein (12/14/2022 10:56 AM EDT) C REACTIVE PROTEIN 15.8(H) 0.0 - 4.0 mg/L [facility] Blood 12/14/2022 10:5 6 AM EDT 12/14/2022 10:59 AM EDT us Roseann BERMAN LAB BLOOD ORDERABLES Final Result Performing Organization Address [facility]/ZIP Co de Phone Number [address] [address] * Antinuclear antibody (ROSS) (12/14/2022 10:56 AM EDT) ROSS SCREEN ON HEP 2 Negative Negative [facility] Blood 12/14/2022 10:5 6 AM EDT 12/14/2022 10:59 AM EDT us Roseann BERMAN LAB BLOOD ORDERABLES Final Result Performing Organization Address [facility] Co de Phone Number [address] [address] * Sedimentation rate (ESR) (12/14/2022 10:56 AM EDT) ESR 16 0 - 30 mm/h [facility] Blood 12/14/2022 10:5 6 AM EDT 12/14/2022 10:59 AM EDT Roseann BERMAN LAB BLOOD ORDERABLES Final Result Performing Organization Address [facility]/ZIP Co de Phone Number [address] [address] * (ABNORMAL) Ferritin (12/14/2022 10:56 AM EDT) FERRITIN 196(H) 13 - 150 ug/L [facility] Blood 12/14/2022 10:5 6 AM EDT 12/14/2022 10:59 AM EDT Roseann BERMAN LAB BLOOD ORDERABLES Final Result [facility] [address] [place] [address] documented in this encounter Visit Diagnoses Diagnosis Stomach ache Dyspepsia and other specified disorders of function of stomach Elevated C-reactive protein (CRP) Low phosphate levels Disorders of phosphorus metabolism documented in this encounter Care Teams Flight Radio Officer Relationship Specialty Start Date End Date Roseann Lopez PA [address] [place] [address] [address] [place] [address] [email or web address] PCP - General Unknown Provider Specialty 12/15/21 Esme Claudio MD [address] [place] [address] [email or web address] Historical LMR Provider 12/24/16 Esme Claudio MD [address] [place] [address] [email or web address] Insurance Assigned Provider 06/15/23 11/16/23 documented as of this encounter Additional Source Comments The information contained in this document represents components of the legal health record. It is not the complete legal health record.[facility]
--- OUTSIDE RECORDS SUMMARY | 2024-12-25 18:15 | XMS_ITS | Encounter Summary ---
Author Organization [facility] Address [address] [place] [address] Phone Care Team Providers Care Densitometer Reader Name Role Phone Tiffanie Crow MD Unavailable Destin Freed MD Unavailable Alisia Velasquez MD Unavailable Presley Bhandari MD Unavailable Ana Lilia Mclain-C Unavailable Esme Claudio MD Unavailable Neeraj Win MD Unavailable Esme Aaron MD Unavailable [phone] Jose Carlos Katz MD Unavailable Esme Claudio MD Primary Care Provider + Esme Claudio MD Unavailable Cullen Corrigan MD Unavailable Roseann Lopez Primary Care Provider [phone] Cullen Corrigan MD Unavailable Esme Claudio MD Unavailable Encounter Details Date Type Department Care Team (Late st Contact Info) Description 06/11/2018 Ancillary Orders [facility] Department [address] [place] [address] Roseann Lopez PA [address] [place] [address] [email or web address] Breast screening Social History Tobacco Use Types [...] documented as of this encounter Care Teams Densitometer Reader Relationship Specialty Start Date End Date Esme Claudio MD [address] [place] [address] [email or web address] PCP - General Family Medicine 02/08/17 12/14/21 Roseann Lopez PA [address] [place] [address] Dr [address] [place] [address] [email or web address] PCP - General Unknown Provider Specialty 12/15/21 Tiffanie Crow MD [address] [place] [address] [address] [place] [address] Historical LMR Provider 12/24/16 2 Destin Freed MD [address] [place] [address] [email or web address] Historical LMR Provider 12/24/16 03/18/21 Alisia Velasquez MD [address] [place] [address] [address] Historical LMR Provider 12/24/16 Presley Bhandari MD [address] [place] [address] Historical LMR Provider 12/24/16 Ana Lilia Mclain PA-C [address] [place] [address] Orthopedics & Sports [facility], [place] [address] [email or web address] Historical LMR Provider 12/24/16 03/18/21 Esme Claudio MD [address] [place] [address] Historical LMR Provider 12/24/16 Neeraj Win MD [address] [facility], [address] [place] [address] Historical LMR Provider 12/24/16 03/18/21 Esme Aaron MD [address] [place] [address] Historical LMR Provider 12/24/16 2 Jose Carlos Katz MD [address] [place] [address] Orthopedics Sports [facility], [place] [address] [email or web address] Historical LMR Provider 12/24/16 2 Esme Claudio MD [address] [place] [address] [email or web address] Insurance Assigned Provider 07/12/18 10/15/20 Cullen Corrigan MD [address] [place] [address] [email or web address] Insurance Assigned Provider 10/15/20 06/17/21 Cullen Corrigan MD [address] [place] [address] [email or web address] Insurance Assigned Provider 07/14/22 09/15/22 Esme Claudio MD [address] [place] [address] [email or web address] Insurance Assigned Provider 06/15/23 11/16/23 documented as of this encounter Additional Source Comments The information contained in this document represents components of the legal health record. It is not the complete legal health record.[facility]
--- OUTSIDE RECORDS SUMMARY | 2024-12-25 18:15 | XMS_ITS | Encounter Summary ---
Author Organization [facility] Address [address] [place] [address] Phone Care Team Providers Care Rotary Surface Grinder Name Role Phone Esme Claudio MD Unavailable [phone] Roseann Lopez Primary Care Provider [phone] Esme Claudio MD Unavailable [phone] Encounter Details Date Type Department Care Team (Late st Contact Info) Description 12/10/2022 Procedure Pass [facility] [address] [place] [address] Social History Tobacco Use Types Packs/Day Years [...] on filedocumented in this encounter Care Teams Rotary Surface Grinder Relationship Specialty Start Date End Date Roseann Lopez PA [address] [place] [address] [address] [place] [address] [email or web address] PCP - General Unknown Provider Specialty 12/15/21 Esme Claudio MD [address] [place] [address] [email or web address] Historical LMR Provider 12/24/16 Esme Claudio MD [address] [place] [address] [email or web address] Insurance Assigned Provider 06/15/23 11/16/23 documented as of this encounter Additional Source Comments The information contained in this document represents components of the legal health record. It is not the complete legal health record.[facility]
--- OUTSIDE RECORDS SUMMARY | 2024-12-25 18:15 | XMS_ITS | Encounter Summary ---
Author Organization [facility] Address [address] [place] [address] Phone Care Team Providers Care Police Department Secretary Name Role Phone Esme Claudio MD Unavailable [phone] Roseann Lopez Primary Care Provider [phone] Esme Claudio MD Unavailable [phone] Reason for Referral * MRI/CAT Scan - Closed Specialty Diagnoses / Procedures Referred By Contac t Referred To Contact Radiology Diagnoses Abdominal pain, generalized Procedures MRI Enterography Abdomen/Pelvis MRI PELVIS (GI/) CHG MRI, ABDOMEN, COMBO CHG MRI, ABDOMEN (MRI) CHG MRI, PELVIS, COMBO CHG MRI, PELVIS, W/O CONTRAST Concha Stoll PA [address] [place] [address] Phone: tel: fax: Referral ID Status Reason Start Date Expiration Date Visits Re quested Visits Authorized [id number] Closed 02/18/2023 03/20/2023 1 1 Encounter Details Date Type Department Care Team (Latest Contact Info) Description 12/10/2022 Transcribe Orders Virtual Department [address] [place] [address] Concha Stoll PA [address] [place] [address] Abdominal pain, generalized (Primary Dx) Social History [...] bowel. COMPARISON: CT ABDOMEN/PELVIS (KIDNEY STONE) WITHOUT [id number] FINDINGS: BOWEL: No abnormal bowel wall thickening, [...] generalized documented in this encounter Care Teams Police Department Secretary Relationship Specialty Start Date End Date Roseann Lopez PA [address] [place] [address] [email or web address] PCP - General Unknown Provider Specialty 12/15/21 Esme Claudio MD [address] [place] [address] [email or web address] Historical LMR Provider 12/24/16 Esme Claudio MD [address] [place] [address] [email or web address] Insurance Assigned Provider 06/15/23 11/16/23 documented as of this encounter Additional Source Comments The information contained in this document represents components of the legal health record. It is not the complete legal health record.[facility]
--- OUTSIDE RECORDS SUMMARY | 2024-12-25 18:16 | XMS_ITS | Encounter Summary ---
Author Organization [facility] Address [address] [place] [address] Phone Care Team Providers Care Ore Grader Name Role Phone Esme Claudio MD Unavailable [phone] Roseann Lopez Primary Care Provider Esme Cluadio MD Unavailable [phone] Encounter Details Date Type Department Care Team (Latest Contact Info) Description 09/19/2022 Transcribe Orders [facility] [address] [address] Angela Rizzo NP [address] [place] [address] Need for hepatitis C screening test (Primary [...] VITAMIN B12 415 232 - 1,245 pg/mL [facility] Blood 09/19/2022 10:0 8 AM EDT 09/19/2022 10:16 AM EDT Angela Rizzo ROTARY BAR OPERATOR LAB BLOOD ORDERABLES Annalisa l Result [address] [address] * (ABNORMAL) Ferritin (09/19/2022 10:08 AM EDT) FERRITIN 187(H) 13 - 150 ug/L [facility] Blood 09/19/2022 10:0 8 AM EDT 09/19/2022 10:16 AM EDT Angela Rizzo ROTARY BAR OPERATOR LAB BLOOD ORDERABLES Annalisa l Result Performing Organization Address City/[facility]/ZIP Co de Phone Number [address] [address] * Folate (09/19/2022 10:08 AM EDT) FOLIC ACID 8.2 4.2 - 19.9 ng/mL [facility] Blood 09/19/2022 10:0 8 AM EDT 09/19/2022 10:16 AM EDT Angela Rizzo ROTARY BAR OPERATOR LAB BLOOD ORDERABLES Annalisa l Result Performing Organization Address City/[facility]/ZIP Co de Phone Number [address] [address] * Iron and iron binding capacity (09/19/2022 10:08 AM EDT) IRON 107 30 - 160 ug/dL [facility] IRON BINDING CAPACITY 331 228 - 428 ug/dL [facility] TRANSFERRIN SATURAT. 32 15 - 50 % [facility] Blood 09/19/2022 10:0 8 AM EDT 09/19/2022 10:16 AM EDT Angela Rizzo ROTARY BAR OPERATOR LAB BLOOD ORDERABLES Annalisa l Result Performing Organization Address City/[facility]/ZIP Co de Phone Number [address] [address] * (ABNORMAL) C-Reactive Protein (09/19/2022 10:08 AM EDT) Pathologist [facility] C REACTIVE PROTEIN 8.7(H) 0.0 - 4.0 mg/L [facility] Blood 09/19/2022 10:0 8 AM EDT 09/19/2022 10:16 AM EDT Angela Rizzo ROTARY BAR OPERATOR LAB BLOOD ORDERABLES Annalisa l Result Performing Organization Address City/[facility]/ZIP Co de Phone Number [address] [address] * (ABNORMAL) Comprehensive metabolic panel (09/19/2022 10:08 AM EDT) SODIUM 141 133 - 146 mmol/L [facility] POTASSIUM 3.7 3.3 - 5.1 mmol/L [facility] CHLORIDE 104 96 - 108 mmol/L [facility] CO2 28 21 - 35 mmol/L [facility] BUN 11 6 - 19 mg/dL [facility] CREATININE 0.60 0.5 - 1.5 mg/dL [facility] GLUCOSE 142(H) 70 - 99 mg/dL [facility] ALBUMIN 4.3 3.9 - 4.8 g/dL [facility] TOTAL PROTEIN 6.7 6.5 - 8.0 g/dL [facility] CALCIUM 9.4 8.4 - 10.3 mg/dL [facility] ALKALINE PHOSPHATASE 106 39 - 117 U/L [facility] TOTAL BILIRUBIN 0.5 0.0 - 1.2 mg/dL [facility] AST 21 0 - 37 U/L [facility] ALT 21 0 - 40 U/L [facility] GLOBULIN 2.4 1 - 4.8 g/dL [facility] EGFR 103 >59 mL/min/1.7 3m2 [facility] Comment:Estimated glomerular filtration rate calculated using the CKD-EPI refit equation. ANION GAP 13 10 - 20 mmol/L [facility] Blood 09/19/2022 10:0 8 AM EDT 09/19/2022 10:16 AM EDT Angela Rizzo NP LAB BLOOD ORDERABLES Annalisa l Result Performing Organization Address City/[facility]/ZIP Co de Phone Number [address] [address] * CBC (09/19/2022 10:08 AM EDT) WBC 6.34 4.00 - 11.00 K/uL [facility] RBC 4.72 3.72 - 5.30 M/uL [facility] HGB 14.1 11.4 - 15.9 g/dL [facility] HCT 43.3 34.2 - 46.8 % [facility] PLT 225 140 - 430 K/uL [facility] MCV 91.7 78.0 - 97.0 fL [facility] MCH 29.9 25.0 - 33.0 pg [facility] MCHC 32.6 32.0 - 36.0 g/dL [facility] RDW 13.6 11.0 - 16.0 % [facility] MPV 12.1 8.4 - 12.8 fl [facility] Blood 09/19/2022 10:0 8 AM EDT 09/19/2022 10:16 AM EDT Angela Rizzo NP LAB BLOOD ORDERABLES Annalisa l Result Performing Organization Address City/[facility]/ZIP Co de Phone Number [address] [address] * Immunoglobulin A (09/19/2022 10:08 AM EDT) IgA 166 70 - 400 mg/dL [facility] Blood 09/19/2022 10:0 8 AM EDT 09/19/2022 10:16 AM EDT [facility] Azalia Rizzo ROTARY BAR OPERATOR LAB BLOOD ORDERABLES Annalisa l Result [facility] [address] [place] [address] * Tissue transglutaminase IgA (09/19/2022 10:08 AM EDT) TTG IGA ANTIBODY <1.2 <4.0 (Negative) U/mL [facility] Blood 09/19/2022 10:0 8 AM EDT 09/19/2022 10:17 AM EDT [facility] Azalia Rizzo ROTARY BAR OPERATOR LAB BLOOD ORDERABLES Annalisa l Result [facility] [address] [place] [address] documented in this encounter Visit Diagnoses Diagnosis Need for hepatitis C screening test- Primary Special screening examination for other specified viral diseases Nausea Nausea alone Diarrhea, unspecified type documented in this encounter Care Teams Ore Grader Relationship Specialty Start Date End Date Roseann Lopez PA [address] [place] [address] [address] [place] [address] [email or web address] PCP - General Unknown Provider Specialty 12/15/21 Esme Claudio MD [address] [place] [address] [email or web address] Historical LMR Provider 12/24/16 Esme Claudio MD [address] [place] [address] [email or web address] Insurance Assigned Provider 06/15/23 11/16/23 documented as of this encounter Additional Source Comments The information contained in this document represents components of the legal health record. It is not the complete legal health record.[facility]
--- OUTSIDE RECORDS SUMMARY | 2024-12-25 18:16 | XMS_ITS | Encounter Summary ---
Author Organization [facility] Address [address] [place] [address] Phone Care Team Providers Care Oracle Business Intelligence Developer Name Role Phone Esme Claudio MD Unavailable Roseann Lopez Primary Care Provider Cullen Corrigan MD Unavailable Esme Claudio MD Unavailable [phone] Encounter Details Date Type Department Care Team (Latest Contact Info) Description 06/08/2022 Transcribe Orders Virtual Department [address] [place] [address] Remberto Fletcher MD [address] [facility] [address] [place] [address] [email or web address] Essential hypertension (Primary Dx); Prerenal azotemia Social [...] system documented in this encounter Care Teams Oracle Business Intelligence Developer Relationship Specialty Start Date End Date Roseann Lopez PA [address] [place] [address] [email or web address] PCP - General Unknown Provider Specialty 12/15/21 Esme Claudio MD [address] [place] [address] [email or web address] Historical LMR Provider 12/24/16 Cullen Corrigan MD [address] [place] [address] [email or web address] Insurance Assigned Provider 07/14/22 09/15/22 Esme Claudio MD [address] [place] [address] [email or web address] Insurance Assigned Provider 06/15/23 11/16/23 documented as of this encounter Additional Source Comments The information contained in this document represents components of the legal health record. It is not the complete legal health record.[facility]
--- OUTSIDE RECORDS SUMMARY | 2024-12-25 18:16 | XMS_ITS | Encounter Summary ---
Author Organization [facility] Address [address] [place] [address] Phone Care Team Providers Care Lead Pastor Name Role Phone Esme Claudio MD Unavailable [phone] Roseann Lopez Primary Care Provider [phone] Cullen Corrigan MD Unavailable [phone] Esme Claudio MD Unavailable [phone] Reason for Referral * MRI/CAT Scan - Closed Specialty Diagnoses / Procedures Referred By Contkavitha t Referred To Contact Radiology Diagnoses Acute renal failure, unspecified acute renal failure type Procedures CT Abdomen/Pelvis CHG CT SCAN,ABDOMENT AND PELVIS,W/O CONTRAST CHG CT SCAN,ABDOMENT AND PELVIS,W CONTRAST CHG CT SCAN,ABDOMENT AND PELVIS,COMBO Esme Claudio MD Phone: tel: fax: [email or web address] Referral ID Status Reason Start Date Expiration Date Visits Re quested Visits Authorized [id number] Closed 06/05/2022 08/03/2022 1 1 Encounter Details Date Type Department Care Team (Late st Contact Info) Description 06/08/2022 Transcribe Orders [facility] Department [address] [place] [address] Esme Claudio MD [address] [place] [id number] [email or web address] Acute renal failure, unspecified acute renal failure [...] No urolithiasis or hydronephrosis. Esme Claudio MD [facility] ABD/PELVIS Final Result documented in this encounter Visit Diagnoses Diagnosis Acute renal failure, unspecified acute renal failure type- Primary Acute renal failure, unspecified acute renal failure type documented in this encounter Care Teams Lead Pastor Relationship Specialty Start Date End Date Roseann Lopez PA [address] [place] [address] [address] [place] [address] [email or web address] PCP - General Unknown Provider Specialty 12/15/21 Esme Claudio MD [address] [place] [address] [email or web address] Historical LMR Provider 12/24/16 Cullen Corrigan MD [address] [place] [address] [email or web address] Insurance Assigned Provider 07/14/22 09/15/22 Esme Claudio MD [address] [place] [address] [email or web address] Insurance Assigned Provider 06/15/23 11/16/23 documented as of this encounter Additional Source Comments The information contained in this document represents components of the legal health record. It is not the complete legal health record.[facility]
--- OUTSIDE RECORDS SUMMARY | 2024-12-25 18:16 | XMS_ITS | Patient Health Record ---
Author Organization [facility] madeleine Address [address] [place] [address] Care Team Providers Care Clinical Staff Educator Name Role Phone Esme Claudio Primary Care Provider Austin Rios Unavailable [phone] Lizzeth Paul Unavailable [phone] Roseann Mulligan Unavailable [phone] Ernie Sun Unavailable [phone] Ness Robbins Unavailable Caleb Santana Unavailable [phone] Marya Paris Unavailable [phone] Tyler Bryant Unavailable [phone] Allergies Allergen (clinical drug ingredient) Drug/Non Drug Allergy documented on EMR Reaction Allergy Type Onset Date Status LATEX SENSITIVE (uncoded) when wearing gloves Allergy Active acetaminophen / oxycodone Percocet itchy mouth, rash Drug Allergy Active Results Component Value Reference Range Flag Notes Rapid Strep Reviewed date:06/06/2024 04:59:10 PM Interpretation:Negative Performing Lab: Notes/Report: Negative RAPID STREP negative COVID-19, RSV, FLU A/B PCR ( [id number] [facility]) Reviewed date:01/21/2024 08:28:55 AM Interpretation: Performing Lab:NL2, [facility] [id number] [place] Notes/Report: Received Date: FASTING [...] diagnosis and patient management decisions. 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 rapid Flu Reviewed date:01/16/2024 03:15:25 PM Interpretation:Negative Performing Lab: Notes/Report: Negative Influenza A neg Influenza B neg Streptococcus Group A Cultur e (4485 NO) Reviewed date:01/21/2024 08:29:15 AM Interpretation: Performing Lab:NL2, [facility] [id number] [place] Notes/Report: Received Date: [id number] NON-FASTING FASTING:UNKNOWN FASTING: UNKNOWN STREPTOCOCCUS, GROUP A CULTURE SEE NOTE STREPTOCOCCUS, GROUP A CULTURE Micro Number: [id number] Test Status: Final Specimen Source: Throat Specimen Quality: Adequate Result: No group A Streptococcus isolated Rapid Strep Reviewed date:01/16/2024 02:52:20 PM Interpretation:Negative Performing Lab: Notes/Report: Negative CT Heart W/O Dye Heber Eval Reviewed date:02/03/2024 05:54:19 PM Interpretation: Performing Lab: Notes/Report: CT Heart W/O Dye Heber Eval INDICATION: Reason: E78.5 HYPERLIPIDEMIA; Clinical Question(s): Other:. Female of age 63 years, race White COMPARISON: None TECHNIQUE: Coronary artery Calcium Scoring. After a localizing assistant therapy aide image was obtained, an ECG-gated noncontrast exam was obtained of the heart in late diastole. The region of interest was limited to the heart in order to optimize image quality. Weight-based protocol using automatic tube modulation was used to optimize exposure parameters. A Eldarion 64 scanner was used, with Agatston scoring performed using CSDN ([employer]) web-based software. This procedure is not being [...] Agatston coronary calcium score is 0. WSN: [id number] Ordering Physician: Ness Winkler Dictated By: Malia Ruelas MD Reason For Referral Reason for CPAP adjustments ; pt with known JACKY without proper supplies Diagnosis 1 JACKY (G47.33) Referral Organization [facility] actice Referring Provider First Name Roseann Referring Provider Last Name Ese Referring Provider [facility] Referred Provider Sleep Medicine [facility] Referred Provider Specialty SLEEP MEDICI NE General Notes Marya Catherine 06/2023 01:56:41 PM > Referral faxed to: [phone] Clinical [facility] UPIN: NPI- Dr Anthony Velasquez, Provider , Address1: [address] [place] [address] [address], Address2: [facility] , [facility], Zip: [place], [address], , Referral Priority Routine Reason Needs Nephrology Con sult, 2nd HTN workup Diagnosis 1 HTN (I10) [facility] Referring Provider First Name Roseann Referring Provider Last Name Ese Referring Provider [facility] Referred Provider [facility], [facility] Referred Provider Specialty Nephrology General Notes Marya Catherine 07/2023 07:21:55 AM > referral faxed to: [phone] Clinical Notes Provider Name: [facility], [facility], Address1: [address], Zip: [place], [address], , Referral Priority Routine Reason JACKY Diagnosis 1 JACKY (G47.33) Referral Organization [facility] Referring Provider First Name Austin Referring Provider Last Name Gabriel Referring Provider [facility] Referred Provider [facility], SLE EP LAB General Notes Marya Catherine 03/12 01:09:47 PM > Referral faxed to: [phone] Clinical Notes Provider Name: [facility], SLEEP LAB, Provider ID Number: , Provider UPIN: , Provider NPI: , Provider Facility: , Provider Speciality: , Address1: [address] [place] [address], Address2: , [facility], Zip: [place], [address], , Appt. Date/Time: , Referral Priority Routine Reason Joint pains, episodi c Diagnosis 1 Joint pains (M25.50) Referral Organization [facility] NO Referring Provider First Name Austin Referring Provider Last Name Gabriel Referring Provider [facility] Referred Provider [facility], Rheumatology Referred Provider Specialty Rheumatology General Notes Austin Rios 025 01:54:55 PM >fax MGB ID note with referral, Marya Catherine 06/18/2024 12:12:46 PM > Referral faxed to: [phone] Clinical Notes Provider Name: [facility], Rheumatology, Provider ID Number: , Provider UPIN: , Provider NPI: , Provider Facility: , Provider Speciality: Rheumatology, [address], Address2: [place] [address], [facility], Zip: [place], [address], , Appt. Date/Time: , Referral Priority Routine Reason Vomiting, ED follow up Diagnosis 1 Nausea and/or vomiti ng (R11.2) Referral Organization [facility] Referring Provider First Name Austin Referring Provider Last Name Gabriel Referring Provider Speciality [facility] ctice Referred Provider [facility], Gastroenterology Referred Provider Specialty Gastroentero logy General Notes Marya Catherine 07/10 02:45:59 PM > referral faxed to: [phone] Clinical Notes Provider Name: [facility], Gastroenterology, Provider ID Number: , Provider UPIN: , Provider NPI: , Provider Facility: , Provider Speciality: Gastroenterology, Address1: [address], Address2: , [facility], Zip: [place], [address], , Appt. Date/Time: , Referral Priority Routine Reason For Edema, leg swell ing Diagnosis 1 Edema localized (R60 .0) Referral Organization [facility] Referring Provider First Name Austin Referring Provider Last Name Gabriel Referring Provider Special[facility] Referred Provider Ava Acosta ([place]) Referred Provider Specialty Vascular Constance maikel General Notes Marya Catherine 10/09 08:43:38 AM > REFERRAL FAXED TO: [phone] Clinical Notes Provider Name: Karla Leon) Jose , Provider , Provider Speciality: Vascular Surgery, Address1: [address], [facility], Zip: [place], [address], , Referral Priority Routine Medications Medication SIG [...] day; Duration: 30 days As needed 09/24/2024 Not-Taking/[place] N Qvar RediHaler 80 MCG/ACT Aerosol Breath [...] hrs; Duration: 30 days As needed 05/05/2024 Not-Taking/[place] N Adderall 5 MG Tablet 1 tablet Orally once a day; Duration: 30 days sparingly only PRN 09/04/2024 Active Ondansetron 4 MG Tablet Disintegrating 1 tab(s) orally every 8 hours; Duration: 30 days As needed Not-Taking/[place] N LORazepam 1 MG Tablet 1 tab(s) orally 1 times a day prn anxiety - sparing use; Duration: 30 days PRN 05/06/2024 Active Promethazine HCl 25 MG Suppository 1 suppository as needed Rectal every 6 hrs; Duration: 30 days As needed (Max 50mg per day) Max 50mg per day 05/01/2024 Not-Taking/[place] N Naproxen 250 MG Tablet 1 tablet with food or milk as needed Orally every 12 hrs; Duration: 30 days As needed 03/30/2024 Active Spironolactone 50 MG Tablet 1 tablet Orally twice a day; Duration: 90 days 10/05/2024 Active Cyclobenzaprine HCl 10 MG Tablet 1 tab(s) orally 3 times a day; Duration: 10 days As needed Active DULoxetine HCl 60 MG Capsule Delayed Release Particles 1 capsule Orally Once a day; Duration: 60 days Active Immunizations Vaccine Route Administration Date Status [...] Details Social History 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 [...] concerts etc. she has lots of friends Hobbies: [...] W/U Status Risk Notes Problem Anxiety (finding) (82709744) Anxiety (unspecified) (F41.9) Active confirmed Problem Dysphagia (88441037) Dysphagia (R13.10) Active confirmed Problem Hyperlipidemia (00316044) Hyperlipidemia, unspecified (E78.5) Active confirmed Problem Neck pain (15344276) Pain Neck (M54.2) Active confirmed Problem Reactions to severe stress, other (F43.8) Active confirmed Problem Obstructive sleep apnea syndrome (08125777) JACKY (G47.33) Active confirmed Problem Allergic rhinitis (80650016) Allergic rhinitis, Other (J30.89) Active confirmed Problem Mild intermittent asthma (881232864) Asthma Mild intermittent, uncomplicated (J45.20) Active confirmed Problem Impaired fasting glucose (888778322) Impaired fasting glucose (R73.01) Active confirmed Problem C-reactive protein abnormal (899378460) Elevated C-reactive protein (CRP) (R79.82) Active confirmed Problem Attention deficit hyperactivity disorder (899683266) ADHD, other type (F90.8) Active confirmed Problem Attention deficit hyperactivity disorder (094465577) ADHD, unspecified type (F90.9) Active confirmed Problem Vitamin D deficiency (14897935) Vitamin D deficiency, unspecified (E55.9) Active confirmed Problem Fatigue (70883735) Fatigue (R53.83) Active conf irmed Problem Hypertension (53707137) HTN (I10) Active confirmed Problem Hypothyroidism (35371149) Hypothyroidism, unspecified (E03.9) Active confirmed Problem Perimenopausal disorder (181196670) HOT FLASHES (N95.8) Active confirmed Problem Muscle pain (99941431) Myalgia, unspecified site (M79.10) Active confirmed Problem Cyclical vomiting syndrome (disorder) (29967878) Cyclical vomiting syndrome unrelated to migraine (R11.15) [...] N/A Encounters Encounter Location Date Provider Diagnosis [facility] [address] [place] [address] 01/01/2024 Marya Paris [facility] [address] [place] [address] 01/08/2024 Ness Robbins [facility] [address] [place] [address] 01/08/2024 Ness Robbins [facility] [address] [place] [address] 01/08/2024 Ness Robbins [facility] [address] [place] [address] 01/09/2024 Ness Robbins ADHD, unspecified type F90.9 [facility] [address] [place] [address] 01/13/2024 Ness Robbins [facility] [address] [place] [address] 01/16/2024 Austin Rios [facility] [address] [place] [address] 02/21/2024 Austin Rios Myalgia, unspecified site M79.10 [facility] [address] [place] [address] 02/28/2024 Esme Claudio [facility] [address] [place] [address] 03/30/2024 Esme Claudio [facility] [address] [place] [address] 05/05/2024 Lizzeth Paul Anxiety (unspecified ) F41.9 [facility] [address] [place] [address] 05/10/2024 Esme Claudio [facility] [address] [place] [address] 05/10/2024 Austin Rios [facility] [address] [place] [address] 05/21/2024 Austin Rios [facility] [address] [place] [address] 06/23/2024 Esme Claudio [facility] [address] [place] [address] 07/30/2024 Esme Claudio [place] [address] [place] [address] 09/22/2024 Austin Rios [place] [address] [place] [address] 09/22/2024 Caleb Santana [place] [address] [place] [address] 09/24/2024 Austni Rios Hypokalemia E87.6 [place] [address] [place] [address] 09/24/2024 Austin Rios Hypokalemia E87.6 [place] [address] [place] [address] 09/28/2024 Austin Rios Hypokalemia E87.6 [place] [address] [place] [address] 10/05/2024 Austin Rios Impaired fasting glucose R73.01 and Family history of ischemic heart disease and other diseases of the circulatory system Z82.49 [place] [address] [place] [address] 10/08/2024 Austin Rios Fatigue R53.83 and ADHD, unspecified type F90.9 [place] [address] [place] [address] 12/15/2024 Austin iRos Myalgia, unspecified site M79.10 [place] [address] [place] [address] 02/12/2024 Austin Rios Hypothyroidism, unspecified E03.9 ; HTN I10 ; Anxiety (unspecified) F41.9 ; Myalgia, unspecified site M79.10 and Allergic rhinitis, Other J30.89 [place] [address] [place] [address] 02/25/2024 Austin Rios [place] [address] [place] [address] 04/14/2024 Maryakyle Paris Nausea R11.0 [place] [address] [place] [address] 05/18/2024 Austin Rios [place] [address] [place] [address] 05/18/2024 Esme Claudio [address] [address] 05/19/2024 Lizzeth Paul [facility] [address] [place] [address] 07/23/2024 Austin Rios HTN I10 and ADHD, unspecified type F90.9 [place] [address] [place] [address] 07/23/2024 Austin Rios [facility] [address] [place] [address] 09/01/2024 Austin Rios ADHD, unspecified type F90.[address] [address] 09/16/2024 Austin Rios [place] [address] [place] [address] 09/16/2024 Austin Rios [facility] [address] [place] [address] 2024 Austin Rios [facility] [address] [address] 11/25/2024 Austin Rios Edema localized R60. 0 [place] [address] [place] [address] 03/30/2024 Austin Rios Adult physical MADDY L Z00.00 ; Vitamin D deficiency, unspecified E55.9 ; Hypothyroidism E03.9 ; HTN I10 ; Encounter for immunization Z23 ; Back pain, other M54.89 ; JACKY G47.33 ; Hyperlipidemia, unspecified E78.5 and Hypokalemia E87.[address] [address] 05/05/2024 Lizzeth Paul HTN I10 ; Nausea and/or vomiting R11.2 ; Cyclical vomiting syndrome unrelated to migraine R11.15 ; Impaired fasting glucose R73.01 ; Fatigue R53.83 ; Elevated C-reactive protein (CRP) R79.82 and Hyperlipidemia, unspecified E78.[address] [address] 05/21/2024 Austin Rios Nausea and/or vomiting R11.2 and Hypokalemia E87.6 [place] [address] [place] [address] 06/15/2024 Austin Rios Nausea and/or vomiting R11.2 ; HTN I10 ; Joint pains M25.50 and ADHD, unspecified type F90.9 [place] [address] [place] [address] 09/21/2024 Austin Rios Vomiting unspecified R11.10 ; Nausea R11.0 ; Fatigue R53.83 and ADHD, other type F90.8 [place] [address] [place] [address] 09/28/2024 Austin Rios Hypokalemia E87.6 ; Vomiting unspecified R11.10 ; HTN I10 and Fatigue R53.83 [place] [address] [place] [address] 10/05/2024 Austin Rios Hypokalemia E87.6 ; Vomiting unspecified R11.10 ; HTN I10 ; Edema localized R60.0 and Shortness of breath R06.[address] [address] 10/15/2024 Austin Rios Hypokalemia E87.6 ; Edema localized R60.0 and HTN I10 [facility] [address] [address] 11/12/2024 Austin Rios Nausea and/or vomiting R11.2 ; HTN I10 and Edema localized R60.0 [place] [address] [place] [address] 01/01/2024 Marya Paris HTN I10 and ADHD, unspecified type F90.9 [place] [address] [place] [address] 01/08/2024 Ness Robbins Hyperlipidemia, unspecified E78.5 ; Dyspnea, unspecified R06.00 ; Elevated C-reactive protein (CRP) R79.82 ; HTN I10 ; Asthma Mild intermittent, uncomplicated J45.20 ; ADHD, unspecified type F90.9 and Prediabetes R73.[address] [address] 01/22/2024 Austin Rios Asthma exacerbation, unspecified type J45.901 and Cough, unspecified R05.9 [place] [address] [place] [address] 02/05/2024 Ness Robbins Hyperlipidemia, unspecified E78.5 ; HTN I10 ; Hypothyroidism, unspecified E03.9 ; Allergic rhinitis, Other J30.89 ; Anxiety (unspecified) F41.9 ; Myalgia, unspecified site M79.10 ; Elevated C-reactive protein (CRP) R79.82 and Prediabetes R73.[address] [address] 01/16/2024 Austin Rios Cough, unspecified R05.9 ; Asthma exacerbation, unspecified type J45.901 and Sore throat J02.9 [place] [address] [place] [address] 09/14/2024 Caleb Corriveau Fever NOS R50.9 and Nausea R11.0 [place] [address] [place] [address] 09/23/2024 Ernie Corinne Hypokalemia E87.6 ; HTN I10 and Nausea R11.0 [place] [address] [place] [address] 06/05/2024 Esme Claudio Sore throat J02.9 an d Ned ker inflamed L82.0 [place] [address] [place] [address] 04/13/2024 Marya Paris Fever, unspecified R50.9 ; Pain abd Generalized R10.84 ; Nausea R11.0 ; Vomiting, unspecified R11.10 and Constipation, unspecified K59.00 [place] [address] [place] [address] 03/13/2024 Esme Claudio Pain arm, left upper M79.622 and Pain arm, right upper M79.621 [place] [address] [place] [address] 01/03/2024 Esme Claudio Pain hand, left M79.642 ; Pain hand, right M79.641 ; Pain Neck M54.2 and Pain back M54.89 [place] [address] [place] [address] 01/13/2024 Ness Robbins JACKY G47.[address] [address] 09/24/2024 Austin Rios Hypokalemia E87.6 an d Nausea R11.[address] [address] 08/14/2024 Caleb Corriveau Vomiting unspecified R11.10 and Nausea R11.0 [place] [address] [place] [address] 12/26/2023 H[place]ying [place] Pain Neck M54.2 ; Pain wrist, left M25.532 ; Pain wrist, right M25.531 ; Pain hip, left M25.552 and Pain hip, right M25.551 [place] [address] [place] [address] 01/08/2024 Haiying [place] Pain Neck M54.2 ; Pain wrist, left M25.532 ; Pain wrist, right M25.531 ; Pain hip, left M25.552 and Pain hip, right M25.551 [place] [address] [place] [address] 05/13/2024 Haiying [place] Pain Neck M54.2 ; Pain wrist, left M25.532 and Pain wrist, right M25.531 [place] [address] [place] [address] 05/21/2024 Haiying [place] Pain Neck M54.2 ; Pain wrist, left M25.532 and Pain wrist, right M25.531 [place] [address] [place] [address] 06/25/2024 Haiying [place] Pain Neck M54.2 ; Pain wrist, left M25.532 and Pain wrist, right M25.531 [place] [address] [place] [address] 07/02/2024 Haiying Manny Pain wrist, left M25.532 ; Other low back pain M54.59 ; Pain Neck M54.2 and Pain wrist, right M25.531 [place] [address] [place] [address] 02/13/2024 Haiying [place] Pain Neck M54.2 ; Pain wrist, left M25.532 ; Pain wrist, right M25.531 ; Pain hip, left M25.552 ; Pain hip, right M25.551 ; Pain foot, left M79.672 and Pain foot, right M79.671 [place] [address] [place] [address] 02/20/2024 Tyler Bryant No Show or Late Cancel NS.LTCX Assessments Encounter Date Diagnosis (ICD Code) Assessment Notes Treatment Notes Treatment Clinical Notes Section Notes 09/28/2024 Hypokalemia (ICD-10 - E87.6) 10/05/2024 Impaired fasting glucose (ICD-10 - R73.01) 10/05/2024 Family history of ischemic heart disease and other diseases of the circulatory system (ICD-10 - Z82.49) 01/09/2024 ADHD, unspecified type (ICD-10 - F90.9) 02/21/2024 Myalgia, unspecified site (ICD-10 - M79.10) 05/05/2024 Anxiety (unspecified) (ICD-10 - F41.9) 09/24/2024 Hypokalemia (ICD-10 - E87.6) 09/24/2024 Hypokalemia (ICD-10 - E87.6) 10/08/2024 Fatigue (ICD-10 - R53.83) 12/15/2024 Myalgia, unspecified site (ICD-10 - M79.10) 02/12/2024 Hypothyroidism, unspecified (ICD-10 - E03.9) 04/14/2024 [...] KD3, HT6, HT1, KD22 CV15, 16, 12 [place] checking pulse while needling LV3, KD3, HT1,CV15 and manipulating the needles until the pulse calm down35 minutes face to face with patient for set 1 Treatment/Needle Set 2:Points: Bi ST28, LI4, LV14,GB26, SP21 CV3,4, 6,9,23, YIN MEDEROS 16 needles 10 minutes face to face with patient for set 2 [place] were retained for 45 minutes _# of [...] SP4, KD3, ST36,40, GB34, BL39, SP9 14 [place] 20 minutes face to face with patient for set 1 Treatment/Needle Set 2:Points: Bi ba lanny, LI5, TW5, LI11 14 needles 15 minutes face to face with patient for set 2 [place] were retained for 45 minutes _# of [...] KEYLA WYNN T2,1,C7, BL10, AN SARA 20 [place] 20 minutes face to face with patient for set 1 Treatment/Needle Set 2:Points:L LI5, Ling gu, Da abran, TW5, 1 Needle on thenar eminence crease near wrist, R raji ca (4 needles), 9 needles 15 minutes face to face with patient for set 2 [place] were retained for 45 minutes _# of [...] infarction), stroke, and kidney failure. https://www.heart.org /en/health-topics/hig b-kijjq-cskwfjmc/heal rt-yjzmtlt-cfmv-high- blood-pressure https://www.[employer] [employer].Collibra/diseases-condit ions/erjy-iisgx-mjznq ure/in-depth/high-blo od-pressure/art-... Eat plenty of fruits, vegetables, whole grains, fish, and low-fat dairy. Studies show high blood pressure can be lowered and prevented with the DASH diet. This diet is low in sodium and high in potassium, magnesium, calcium, protein, and fiber. https://www.[facility].org/healthy-lifesty le/phzhqaasd-ckn-bpvy thy-eating/in-depth/d kim-diet/art-200... https://www.[facility].org/healthy-lifesty le/rsntfxlab-pvq-dclg thy-eating/in-depth/d kim-diet/art-200... Low blood pressure, also known as hypotension, can have a number of symptoms. If these occur, call your pcp. Dizziness or lightheadedness Blurry vision Fainting Confusion Nausea or vomiting Weakness Sleepiness Headache Neck or back pain Heart palpitations 01/03/2024 Pain hand, left (ICD-10 - M79.642) [...] = 6.1% LDL 160 Per the 2013 [place] [employer] (ACC/AHA) guideline on the management of blood cholesterol, treatment with fbemmqpq-mm-odky intensity statin therapy is recommended for individuals with an estimated 10-year CVD risk > or = to 7.5 percent. Per the 2013 [place] [employer] (ACC/AHA) guideline on the treatment [...] tonify Qi, move Blood and Qi 01/16/2024 Cough, unspecified (ICD-10 - R05.9) see above 01/22/2024 Asthma exacerbation, unspecified type (ICD-10 - J45.901) finish course of prednisone taper as prescribed. Use inhalers as discussed. Much improved, lungs clear on exam. Patient will monitor closely and call back if any concerns. Has upcoming follow up sched already 01/22/2024 Cough, unspecified (ICD-10 - R05.9) see above, significant improvement with treatment 01/13/2024 JACKY (ICD-10 - G47.33) JACKY presents an additional risk factor for CV disease. We discussed need for her to get fully operating machine--will send ref for her to see [facility] sleep med to be adjusted etc. JACKY's [...] days, call back sooner if any questions/concerns 02/05/2024 Hyperlipidemia, unspecified (ICD-10 - E78.5) Nuclear [...] room. -Lab and Xray order sent to [facility] and pt's email- ML 04/13/2024 Fever, unspecified (ICD-10 - R50.9) -advised to use Tylenol 1g every eight hours scheduled for the fever and discomfort 05/05/2024 Nausea and/or vomiting (ICD-10 - R11.2) 05/05/2024 HTN (ICD-10 - I10) 05/21/2024 Nausea and/or vomiting (ICD-10 - R11.2) Ongoing , episodic issue. Very disruptive to her daily life and ability to work. Reports prior work ups including GI and infectious disease consults. Also had rheumatology referral but they wouldnt see her based on symptoms. Has lab orders from [facility] at prior visit for ROSS and rhuem related assessment. Still no GI records, re-requested these as just starting to work with patient after PCP left and will review work up this far. Awaiting GI consult in July thru [facility] now. No current symptoms Completed intermittent FMLA [...] by prior GI note. Patient will see [facility] GI next month for consult and will discuss this and possible MRA further with GI specialist Also refer to rheumatology per ID recommendation as noted below 08/14/2024 Vomiting unspecified (ICD-10 - R11.10) -Discussed [...] Now advancing diet as tolerated. Has seen [facility] in past but now awaiting [facility] GI consult, appt in november , and also rheumatology consult pending. She will go for labs today. Aware of red flag symptoms to seek emergent care with , close f/u as scheduled or sooner as needed. 09/21/2024 Nausea (ICD-10 - R11.0) see above, FMLA ppw completed today 06/15/2024 HTN (ICD-10 - I10) Restart the HCTZ , readings have been very good lately but higher today likely due to not taking medication and increased stress, noticed issue with car earlier today. Has nephrology appt next week. Follow up closely. 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 10/15/2024 Hypokalemia (ICD-10 - E87.6) Has remained stable on weekly labs. GI symptoms remain resolved and has upcoming specailist consults scheduled due to recurrent GI related episodes 10/15/2024 Edema localized (ICD-10 - R60.0) Reviewed [...] worsening shortness of breath seek emergent care 11/12/2024 Nausea and/or vomiting (ICD-10 - R11.2) [...] baseline. She is tolerating the spironolactone well. 10/15/2024 HTN (ICD-10 - I10) She forgot to hold the cozaar after last visit, we will increase spironolactone as noted above and hold the cozaar. Re-check next week, todays reading slightly higher than prior visit but she is also drinking AM coffee during our visit today which may be influencing this 10/05/2024 HTN (ICD-10 - I10) BP in range today, see above 09/21/2024 Fatigue (ICD-10 - R53.83) Reports she stopped her prozac a few weeks ago after GI episode began. She is aware of risks of abruptly stopping medication. At this point 09/28/2024 HTN (ICD-10 - I10) Chronic Condition stable and controlled. continue same plan with current medication and scheduled reassessment 09/24/2024 Nausea (ICD-10 - R11.0) Has continued to steadily improve, aware if any recurrent symptoms such as severe nausea, vomtiing, diarrhea, need to go immediately to ED 09/23/2024 Nausea (ICD-10 - R11.0) - GI and Nausea Management: Continue using Zofran and promethazine for nausea. Patient advised to discuss nausea management with her repair welder, Tyler. we discussed that araceli HERNANDEZ (only one her insurance will pay for) is actually known for dealing well with unexplained GI issues and she may actually have a very good experience there! 06/15/2024 Joint pains (ICD-10 - M25.50) Gets chills, joint pains, nausea, vomiting, episodically as discussed above. Referral to fine arts packer made as discussed 05/05/2024 Cyclical vomiting syndrome unrelated to migraine (ICD-10 - R11.15) 04/13/2024 Nausea (ICD-10 - R11.0) -given a shot of 25 milligram Promethazine Today, has Promethazine suppositories and Zofran at home -She was advised to increase her fluid intake, small sips and take smaller bites while eating. 02/05/2024 HTN (ICD-10 - I10) ? secondary HTN--waiting for nephrology will do a renal US and workup with Dr. Castro on 02/27/2024 03/30/2024 Hypothyroidism (ICD-10 - E03.9) refill sent, will update labs 01/16/2024 Sore throat (ICD-10 - J02.9) pharynx clear, rapid strep neg. suspect secondary to the frequent cough 01/08/2024 Pain wrist, left (ICD-10 - M25.532) Treatment/Needle Set 1:Points: Bi LV2, ST44, GB43 6 Cefiwhu62 minutes face to face with patient for [...] L SP6, R KD3, CV4, 12 8 [place] 15 min face to face with patient for set 3 [place] were retained for 45 minutes _# of [...] HSCRP x2 : 12/05 19.5; 12/18 14.1 12/26/2023 Pain wrist, left (ICD-10 - M25.532) Treatment/Needle Set 1:Points: 2 groups EA: NM21-BZ6 Bi LV3, SP4.6, 8 12 Ewkgbfy10 minutes face to face with patient for set 1 Treatment/Needle Set 2:Points: Bi ST25,21, AN SARA, li4 CV6, 9, 12, 17, 19,21, 23, GV20, SI TORRES RAJINDER L LI5,LU10, LU8, 3, HT7, TW13 R LI11 27 needles 10 minutes face to face with patient for set 2 [place] were retained for 45 minutes _# of [...] - M79.641) see pain hand left notes 06/25/2024 Pain wrist, left (ICD-10 - M25.532) Treatment/Needle Set 1:Points: Ba susu, Bi Khari cifuentes, keyla wynn T3,2, 1,C7, GB20. 20 [place] 20 minutes face to face with patient for set 1 Treatment/Needle Set 2:Points:L LI4,5, 3, LU1, 9, 1 Needle on thenar eminence crease, TW6, 1 Raji lanny between 2-3rd finger 8 needles 15 minutes face to face with patient for set 2 [place] were retained for 45 minutes _# of [...] Bi SP4, ST36, PC6, ST21, CV12,11 10 [place] 20 minutes face to face with patient for set 1 Treatment/Needle Set 2:Points: Bi raji ca, LI5, ST44, CV6 13 needles 15 minutes face to face with patient for set 2 [place] were retained for 45 minutes _# of [...] - M54.2) see pain hand left notes 12/26/2023 Pain wrist, right (ICD-10 - M25.531) see pain wrist TCM Pattern: 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 TCM treatment principles : scatter the cold, disperse wind and dampness in the body. tonify Qi, move Blood and Qi 01/08/2024 Pain wrist, right (ICD-10 - M25.531) [...] HTN harder to treat. Will monitor closely. 05/05/2024 Impaired fasting glucose (ICD-10 - R73.01) 09/21/2024 ADHD, other type (ICD-10 - F90.8) main focus today on above issues, reports she is stable on adderall at current dose and hasnt been taking it lately as not feeling well, therefore does not need refill yet 06/15/2024 ADHD, unspecified type (ICD-10 - F90.9) Having hard time functioning at home and work since stopping the adderall. Would like to restart. Aware of risks of elevated BP with medication and she will check BP reguarly at work and follow up if high readings or any issues/side effects 10/05/2024 Edema localized (ICD-10 - R60.0) Noted [...] regularly. discussed elevation of legs, compression socks 10/05/2024 Shortness of breath (ICD-10 - R06.02) Reports mild SOB with walking quickly. We will obtain CXR and labs including proBNP. No acute cough or trouble in breathing, close f/u as scheduled and to ED immediately if any worsening 09/28/2024 Fatigue (ICD-10 - R53.83) Feels cymbalta has led to less hand pain, no side effects, would like to try higher dose. Will increase to 60mg QD as discused and close f/u next week or sooner as needed 05/05/2024 Fatigue (ICD-10 - R53.83) 04/13/2024 Constipation, unspecified (ICD-10 - K59.00) 03/30/2024 Encounter for immunization (ICD-10 - Z23) 02/05/2024 Allergic rhinitis, Other (ICD-10 - J30.89) 01/08/2024 Pain hip, left (ICD-10 - M25.552) [...] Will first investigate cardiac etiology as above 12/26/2023 Pain hip, left (ICD-10 - M25.552) [...] YOUSIF at prev visit -- RX resent. 12/26/2023 Pain hip, right (ICD-10 - M25.551) see pain wrist TCM Pattern: 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 TCM treatment principles : scatter the cold, disperse wind and dampness in the body. tonify Qi, move Blood and Qi 01/08/2024 Pain hip, right (ICD-10 - M25.551) [...] Elevated C-reactive protein (CRP) (ICD-10 - R79.82) 05/05/2024 Hyperlipidemia, unspecified (ICD-10 - E78.5) 03/30/2024 JACKY (ICD-10 - G47.33) Referral to [facility] sleep medicine made as discussed. We reviewed [...] symptoms that would require return to ED. 02/13/2024 Other Patient presents with signs and [...] had with patient face to face in [facility] office. Consult and education time includes: 1)Previsit visit time: review patient acupuncture intake form, history of western medical conditions on file (EHR), imaging, lab results, sometime discussion with patient's PCP, 2) During visit time: intake and examination, palpation, consultation; 3)Post visit time: record clinic notes, sometime discussion with patient's PCP. Clean Needle Technique (CNT) is used in every treatment. Fexk-us-ocrk time includes day-to-day evaluation, hand washing, choosing [...] had with patient face to face in [facility] office. Consult and education time includes: 1)Previsit visit time: review patient acupuncture intake form, history of western medical conditions on file (EHR), imaging, lab results, sometime discussion with patient's PCP, 2) During visit time: intake and examination, palpation, consultation; 3)Post visit time: record clinic notes, sometime discussion with patient's PCP. Clean Needle Technique (CNT) is used in every treatment. Hcqp-bn-xqsr time includes day-to-day evaluation, hand washing, choosing [...] had with patient face to face in [facility] office. Consult and education time includes: 1)Previsit visit time: review patient acupuncture intake form, history of western medical conditions on file (EHR), imaging, lab results, sometime discussion with patient's PCP, 2) During visit time: intake and examination, palpation, consultation; 3)Post visit time: record clinic notes, sometime discussion with patient's PCP. Clean Needle Technique (CNT) is used in every treatment. Kgct-vv-eczd time includes day-to-day evaluation, hand washing, choosing [...] had with patient face to face in [facility] office. Consult and education time includes: 1)Previsit visit time: review patient acupuncture intake form, history of western medical conditions on file (EHR), imaging, lab results, sometime discussion with patient's PCP, 2) During visit time: intake and examination, palpation, consultation; 3)Post visit time: record clinic notes, sometime discussion with patient's PCP. Clean Needle Technique (CNT) is used in every treatment. Vebh-fi-mxqr time includes day-to-day evaluation, hand washing, choosing [...] had with patient face to face in [facility] office. Consult and education time includes: 1)Previsit visit time: review patient acupuncture intake form, history of western medical conditions on file (EHR), imaging, lab results, sometime discussion with patient's PCP, 2) During visit time: intake and examination, palpation, consultation; 3)Post visit time: record clinic notes, sometime discussion with patient's PCP. Clean Needle Technique (CNT) is used in every treatment. Zccw-mt-zkfg time includes day-to-day evaluation, hand washing, choosing [...] had with patient face to face in [facility] office. Consult and education time includes: 1)Previsit visit time: review patient acupuncture intake form, history of western medical conditions on file (EHR), imaging, lab results, sometime discussion with patient's PCP, 2) During visit time: intake and examination, palpation, consultation; 3)Post visit time: record clinic notes, sometime discussion with patient's PCP. Clean Needle Technique (CNT) is used in every treatment. Avqr-tp-rvfa time includes day-to-day evaluation, hand washing, choosing [...] Other Pt did her bw a t [facility]. We do not have results. She is [...] had with patient face to face in [facility] office. Consult and education time includes: 1)Previsit visit time: review patient acupuncture intake form, history of western medical conditions on file (EHR), imaging, lab results, sometime discussion with patient's PCP, 2) During visit time: intake and examination, palpation, consultation; 3)Post visit time: record clinic notes, sometime discussion with patient's PCP. Clean Needle Technique (CNT) is used in every treatment. Tgyh-da-odbz time includes day-to-day evaluation, hand washing, choosing [...] to face under the supervision of Esme Cluadio MD. Greater than half the visit was [...] mesenteric ischemia. pt has been see through [facility], although I am not currently seeing [...] Echocardiogram 12/05/2023 Mammogram 05/11/2021 Mammogram 07/19/2021 Mammogram 12/14/2022 Mammogram 02/15/2016 Spirometry 10/22/2013 Spirometry 06/11/2018 Rapid Strep 08/27/2022 Urine Cytology ([facility]) 10/30/2016 Urine Cytology ([facility]) 06/26/2017 Colonoscopy 07/19/2021 Colonoscopy 05/11/2021 Colonoscopy 05/11/2021 ekg 04/16/2022 ekg 01/09/2023 -PAP, cervical: HPV HYBRID C APTURE HIGH RISK DNA PROBE if diagnosis of ASCUS 11/21/2006 X ray : Sinuses 04/03/2011 -CRP, High Sensitivity (HSCRP) 1 HEMOGLOBIN A1C 05/05/2024 URINE CULTURE (395 NOHO) 06/12/2022 MRI : brain 08/15/2006 -VITAMIN D2, D3 & TOTAL (250H) 1 -VITAMIN D2, D3 & TOTAL (250H) 2 -VITAMIN D2, D3 & TOTAL (250H) 2 -Pap Smear 09/13/2009 PAP, cervical; HPV Hybrid Capture High R isk DNA Probe any Dx 10/26/2015 PAP, cervical; HPV Hybrid Capture High R isk DNA Probe any Dx 12/20/2021 Mammogram, routine annual screening 05/2018 Mammogram, routine annual screening 10/09 Mammogram, routine annual screening 10/09 Mammogram, routine annual screening 10/09 Mammogram, routine annual screening 07/09 Mammogram, routine annual screening 05/2021 Mammogram, routine annual screening 08/2008 Mammogram, routine annual screening 08/10 Urine Osmo Random 06/05/2022 Urine, Sodium Random 06/05/2022 MRI : Wrist, Left 04/20/2010 -HEMOGLOBIN A1C (DIAGNOSTIC) 11/06/2011 -ROSS IFA, W/REFL TO TITER/PATTERN/CASCAD E 05/05/2024 AMYLASE 05/05/2024 TSH, 3RD GENERATION W/REFLEX TO FT4 04/12 CBC WITH DIFF 05/05/2024 VITAMIN B12/FOLATE, SERUM PANEL 05/05/19 25 SED RATE 05/05/2024 -TSH 08/28/2011 -TSH 09/14/2009 -TSH 09/19/2010 -LIPID PANEL, FASTING 07/20/2010 -LIPID PANEL, FASTING 11/06/2011 COMPREHENSIVE METABOLIC PANL -44935 10/10 COMPREHENSIVE METABOLIC PANL -36600 04/12 MRI: Lumbar spine with and without contr ast 07/16/2013 LIPID PANEL 05/05/2024 Stress Treadmill Test 12/05/2023 FERRITIN 11/23/2022 FERRITIN 12/14/2022 IRON & TIBC 11/23/2022 LIPASE 05/05/2024 HEMOGLOBIN A1C 06/26/2017 HEMOGLOBIN A1C 06/24/2020 HEMOGLOBIN A1C 10/30/2016 HEMOGLOBIN A1C 12/12/2017 HEMOGLOBIN A1C 05/12/2018 HSCRP 07/27/2014 HSCRP 10/26/2015 HSCRP 09/24/2013 COMPREHENSIVE METABOLIC PANL 12/12/2017 COMPREHENSIVE METABOLIC PANL 10/30/2016 COMPREHENSIVE METABOLIC PANL 06/24/2020 COMPREHENSIVE METABOLIC PANL 01/09/2023 COMPREHENSIVE METABOLIC PANL 07/24/2022 COMPREHENSIVE METABOLIC PANL 06/05/2022 COMPREHENSIVE METABOLIC PANL 07/19/2021 COMPREHENSIVE METABOLIC PANL 05/11/2021 COMPREHENSIVE METABOLIC PANL 11/23/2022 COMPREHENSIVE METABOLIC PANL 10/27/2022 COMPREHENSIVE METABOLIC PANL 06/26/2017 COMPREHENSIVE METABOLIC PANL 10/26/2015 COMPREHENSIVE METABOLIC PANL 10/25/2014 COMPREHENSIVE METABOLIC PANL 07/27/2014 COMPREHENSIVE METABOLIC PANL 05/12/2018 LIPID PANEL 05/12/2018 LIPID PANEL 07/27/2014 LIPID PANEL 10/25/2014 LIPID PANEL 10/26/2015 LIPID PANEL 07/24/2022 LIPID PANEL 06/26/2017 LIPID PANEL 05/11/2021 LIPID PANEL 07/19/2021 LIPID PANEL 10/30/2016 LIPID PANEL 12/12/2017 TSH WITH REFLEX TO T4 10/30/2016 TSH WITH REFLEX TO T4 12/12/2017 TSH WITH REFLEX TO T4 05/11/2021 TSH WITH REFLEX TO T4 07/19/2021 TSH WITH REFLEX TO T4 07/24/2022 TSH WITH REFLEX TO T4 06/26/2017 TSH WITH REFLEX TO T4 10/25/2014 TSH WITH REFLEX TO T4 10/26/2015 TSH WITH REFLEX TO T4 05/12/2018 CORTISOL 07/19/2021 ESTRADIOL 07/19/2021 INSULIN 06/24/2020 TSH 09/14/2013 TSH 07/27/2014 Vitamin D25 OH 07/27/2014 Vitamin D25 OH 10/26/2015 Vitamin D25 OH 05/12/2018 Vitamin D25 OH 09/24/2018 Vitamin D25 OH 08/24/2018 Vitamin D25 OH 12/12/2017 Vitamin D25 OH 05/11/2021 Vitamin D25 OH 07/24/2022 Vitamin D25 OH 07/19/2021 CBC 07/16/2013 CBC AUTO DIFF 10/26/2015 CBC AUTO DIFF 10/25/2014 CBC AUTO DIFF 09/24/2018 CBC AUTO DIFF 05/12/2018 CBC AUTO DIFF 07/24/2022 CBC AUTO DIFF 07/19/2021 CBC AUTO DIFF 10/27/2022 CBC AUTO DIFF 06/26/2017 CBC AUTO DIFF 12/12/2017 CBC AUTO DIFF 10/30/2016 CBC AUTO DIFF 01/09/2023 SED RATE 01/09/2023 SED RATE 10/30/2016 SED RATE 12/14/2022 SED RATE 07/19/2021 SED RATE 10/27/2022 ROSS (ANTI-NUCLEAR ANTIBODY SCREEN) USE THIS ONE 12/14/2022 ROSS (ANTI-NUCLEAR ANTIBODY SCREEN) USE THIS ONE 10/26/2015 CRP 10/25/2014 CRP 07/16/2013 CRP 12/14/2022 CRP 11/23/2022 CRP 10/27/2022 CRP 07/19/2021 CRP 10/30/2016 CRP 01/09/2023 RHEUMATOID FACTOR 10/26/2015 LYME AB 07/16/2013 LYME WESTERN BLOT (use this one) 023 URINE CULTURE 06/26/2017 URINE CULTURE 10/30/2016 EHRLICHIA AB (use this one) 10/26/2015 EHRLICHIA AB (use this one) 10/27/2022 BABESIA AB (use this one) 10/27/2022 BABESIA AB (use this one) 10/26/2015 URINALYSIS, COMPLETE 06/26/2017 URINALYSIS, COMPLETE 10/30/2016 Chest 2 Views Frontal and Lat 09/28/2013 Ultrasound : Pelvis and Endovag 06/12/19 CEA MONOCLONAL 10/30/2016 HEP C ANTIBODY 07/19/2021 LYME 10/26/2015 Hereditary Hemochromatosis 11/23/2022 pharmacological nuclear stress test 05/2018 TSH with reflex 11/27/2019 TSH with reflex 12/05/2023 1-25-OH vitamin D 11/27/2019 CBC 03/30/2024 CBC 12/05/2023 CBC 10/05/2024 BASIC METABOLIC PANEL 09/24/2024 BASIC METABOLIC PANEL 09/28/2024 BASIC METABOLIC PANEL 09/23/2024 COMP MET PANEL 09/14/2024 COMP MET PANEL 04/13/2024 COMP MET PANEL 12/05/2023 COMP MET PANEL 03/30/2024 COMP MET PANEL 11/27/2019 COMP MET PANEL 10/05/2024 Hemoglobin A1c 12/05/2023 LIPID PANEL 12/05/2023 LIPID PANEL 03/30/2024 LIPID PANEL 11/27/2019 Urinalysis 04/13/2024 Amylase 04/13/2024 CRP 09/14/2024 Free T4 03/30/2024 Lipase 04/13/2024 Lipase 09/14/2024 Magnesium 09/23/2024 Magnesium 09/24/2024 NT-proBNP 10/05/2024 TSH [...] 1 04/18/2024 08:30:00 AM, [address], [place], [address], Provider Name:Austin Rios, 0 04/22/2025 09:00:00 AM, [address] [place], [address], Insurance Providers Payer Name Payer Address Payer Phone Subscriber Number Group Number Insured Name Patient Relationship to Insured Coverage Start Date Coverage End Date [employer] ([employer]) [address] [address] [place] [address] [id number] [place] Self - patient is the insured Medications Administered Medication Instructions Date of Administration Dosage Notes Dexamethasone 08/31/2022 0.8 mL Promethazine 04/13/2024 25 mg Medical (General) History Medical History History ICD Code seasonal allergies pneumonia 08/25/09-and 12/2014-(many pnally marie as a child) Hypothyroidism HTN 09/2015 Pneumonia NOS Covid19 02/2022; Covid19 08/2023 NORMAL ECHO 12/2023; CAC score 0 01/2024 Surgical History Surgery Date(Month/Year) (2) c-sections 1986,1998 abdominal lipoma removed 2003 endometrial ablation- [place] 07/2007 L rotator cuff tear repair w/ 10/04/09 decompression of left median nerve dr Gallegos ath 06/07/2010 S/P Abdominal Endometrioma ( [place]) 2 004 Rt rotator cuff repair- Dr. Lovelace 05/10 LRTI - arthroscopic surgery - [facility], Dr. Sherman 12/22/2020 Hospitalization History Reason Date(Month/Year) C for abd pain and vomiting 05/01/2024 [facility] ER for vomiting 02/2024 [facility] visit for vomiting 12/2022 [facility] for N/V, abdominal p ain 08/22-08/24/22
--- OUTSIDE RECORDS SUMMARY | 2024-12-25 18:16 | XMS_ITS | Encounter Summary ---
Author Organization [facility] Address [address] [facility] [address] [place] [address] Phone Care Team Providers Care Digital Marketing Analyst Name Role Phone Esme Claudio MD Unavailable Roseann Lopez Primary Care Provider Cullen Corrigan MD Unavailable [phone] Esme Claudio MD Unavailable Encounter Details Date Type Department Care Team (Late st Contact Info) Description 06/08/2022 Procedure Pass [facility], Ct Scan - [address] [address] Social History Tobacco Use Types Packs/Day Years [...] on filedocumented in this encounter Care Teams Digital Marketing Analyst Relationship Specialty Start Date End Date Roseann Lopez PA [address] [place] [address] [address] [place] [address] [email or web address] PCP - General Unknown Provider Specialty 12/15/21 Esme Claudio MD [address] [place] [id number] [email or web address] Historical LMR Provider 12/24/16 Cullen Corrigan MD [address] [place] [id number] [email or web address] Insurance Assigned Provider 07/14/22 09/15/22 Esme Claudio MD [address] [place] [id number] [email or web address] Insurance Assigned Provider 06/15/23 11/16/23 documented as of this encounter Additional Source Comments The information contained in this document represents components of the legal health record. It is not the complete legal health record.[facility]
--- OUTSIDE RECORDS SUMMARY | 2024-12-25 18:16 | XMS_ITS | Clinical Summary ---
Author Organization [facility] Address [address] [place] [address] Phone Care Team Providers Care Photographic Colorist Name Role Phone Esme Claudio MD Unavailable [phone] Roseann Lopez Primary Care Provider [phone] Allergies Active Allergy Reactions Criticality Noted Date [...] 02/04/2023 Nausea and vomiting in adult 02/04/2023 Immunizations Immunization Administration Dates Next Due Hepatitis [...] FOBT 09/18/2007 SIGMOIDOSCOPY 09/18/2007 VIRTUAL COLONOSCOPY 09/18/2007 RSV VACCINE (1 - Risk 50-74 years 1-dose series) 2012 PAP SMEAR 11/14/2015 11/13/2012 BLOOD PRESSURE 07/25/2023 01/24/2023 TSH LEVEL 12/08/2023 12/07/2022, 11/10, 06/22/2020 CREATININE LEVEL 01/10/2024 01/09/2023, , 01/04/2023, Additional history exists POTASSIUM LEVEL 01/10/2024 01/09/2023, 12/10, 01/04/2023, Additional history exists INFLUENZA VACCINE (#1) 2024 12/20/2021, 2014 COVID-19 VACCINE ( season) 2024 12/20/2021, 01/15/2021, 04/23/2020, Additional history exists MAMMOGRAM 01/15/2025 01/15/2023, 10/2021, 07/04/2020, Additional history exists SCREENING FOR DIABETES [...] EDT) SODIUM 136 133 - 146 mmol/L [facility] POTASSIUM 3.5 3.3 - 5.1 mmol/L [facility] CHLORIDE 97 96 - 108 mmol/L [facility] CO2 29 21 - 35 mmol/L [facility] BUN 15 6 - 19 mg/dL [facility] CREATININE 0.90 0.5 - 1.5 mg/dL [facility] GLUCOSE 138(H) 70 - 99 mg/dL [facility] ALBUMIN 4.5 3.9 - 4.8 g/dL [facility] TOTAL PROTEIN 6.7 6.5 - 8.0 g/dL [facility] CALCIUM 9.9 8.4 - 10.3 mg/dL [facility] ALKALINE PHOSPHATASE 96 39 - 117 U/L [facility] TOTAL BILIRUBIN 0.8 0.0 - 1.2 mg/dL [facility] AST 34 0 - 37 U/L [facility] ALT 22 0 - 40 U/L [facility] GLOBULIN 2.2 1 - 4.8 g/dL [facility] EGFR 73 >59 mL/min/1.7 3m2 [facility] Comment:Estimated glomerular filtration rate calculated using the CKD-EPI refit equation. ANION GAP 14 10 - 20 mmol/L [facility] Blood 01/09/2023 12:5 0 PM EDT 01/09/2023 12:54 PM EDT us Roseann BERMAN LAB BLOOD ORDERABLES Final Result [facility] [address] [place] [address] * Hepatitis C antibody, qualitative (12/07/2022 12:26 PM EDT) HCV NON-REACTIV E NON-REACTI VE [facility] Blood 12/07/2022 12:2 6 PM EDT 12/07/2022 12:34 PM EDT us Roseann Lopez PA LAB BLOOD ORDERABLES Final Result Performing Organization Address City/[facility]/ZIP Co de Phone Number [address] [address] * TSH (12/07/2022 12:26 PM EDT) TSH 1.42 0.27 - 4.20 uIU/mL [facility] Blood 12/07/2022 12:2 6 PM EDT 12/07/2022 12:33 PM EDT us Concha Stoll PA LAB BLOOD ORDERABLES Final Result Performing Organization Address [facility] Co de Phone Number [address] [address] * (ABNORMAL) Lipid panel (12/07/2022 12:26 PM EDT) HDL 41 mg/dL [facility] Comment: Interpretation <40 mg/dL: Low HDL cholesterol (major risk factor for CHD) Greater than or equal to 60 mg/dL: High HDL cholesterol ( negative risk factor for CHD) HDL - cholesterol is affected by a number of factors, e.g. smoking, excerise, hormones, sex and age. CHOLESTEROL 245(H) 0 - 240 mg/dL [facility] TRIGLYCERIDES 215(H) 30 - 160 mg/dL [facility] LDL 161(H) 50 - 129 mg/dL [facility] Comment: LDL levels in terms of risk for coronary heart disease: <100 mg/dL: Optimal 100-129 mg/dL: Near or above optimal 130-159 mg/dL: Borderline high 160-189 mg/dL: High >190 mg/dL: Very High CARDIAC RISK RATIO 6.0(H) 3.3 - 4.4 [facility] Blood 12/07/2022 12:2 6 PM EDT 12/07/2022 12:33 PM EDT us Roseann BERMAN LAB BLOOD ORDERABLES Final Result [facility] [address] [place] [address] from Last 3 Months or Most Recently Relevant to Health Maintenance Care Teams Photographic Colorist Relationship Specialty Start Date End Date Roseann Lopez PA [address] [place] [address] [email or web address] PCP - General Unknown Provider Specialty 12/15/21 Esme Claudio MD [address] [place] [address] [email or web address] Historical LMR Provider 12/24/16 Additional Source Comments The information contained in this document represents components of the legal health record. It is not the complete legal health record.[facility]
== END 2024-12-25 16:00 | disposition home or self-care (01) ==
LOC: HO.LAB 15:59
PROVIDERS: PCP Physician Assistant; Visit Provider Nurse Practitioner
DX: R79.82 Elevated C-reactive protein (CRP) (principal); R19.7 Diarrhea, unspecified
CPT/HCPCS: 36415; 81479; 82397; 83520; 86140; 88346; 88350

== ENCOUNTER → 2025-02-16 07:47 | Outpatient (REF) | payer OTHER, SELFPAY ==
--- NOTE | ~2025-02-16 | NM_ITS ---
EXAMINATION: [place] RADIONUCLIDE SOLID FOOD GASTRIC EMPTYING 4-HOUR STUDY CLINICAL INFORMATION: M25.50 - NAUSEA/VOMITING COMPARISON: There are no prior studies available for comparison. TECHNIQUE: A standard meal consisting of 3.75 oz of Egg Beaters brand tagged with 0.742 mCi Tc-99m Sulfur Colloid, 8 oz water and 2 slices of toast with jelly was administered orally to the patient. Images were obtained using a dual head gamma camera in the anterior and posterior projections over of the stomach immediately post ingestion and at hourly intervals up to 4 hours post ingestion. The anterior and posterior counts at each time interval were averaged using the geometric mean and expressed as percentage of the immediate post ingestion counts. FINDINGS: There is visualization of activity in the stomach immediately post ingestion. As the study progresses, there is clearance of activity from the stomach and visualization of progressively increasing small bowel activity. Retention in the stomach at each time interval was: 1 hour 51% (normal 37%-90%) 2 hours 17% (normal 30%-60%) 3 hours 1% IL/IL gastric emptying study IMPRESSION: Normal 4-hour solid food gastric emptying study. For solid meal, rapid gastric emptying is less than 30% at 60 minutes. Delayed gastric emptying criteria is more than 60% remaining at 120 minutes or more than 10% at 240 minutes. The 4-hour value is the best discriminator of a normal or abnormal result. Gastric emptying study grading per JNMT Consensus Recommendations in 2008 (https://tech.snmjournals.org/content/36/1/44) Grade 1 (mild retention): 11-20% at 4h Grade 2 (moderate retention): 21-35% at 4h Grade 3 (severe retention): 36-50% at 4h Grade 4 (very severe retention): >50% retention at 4h Electronically signed by: Jose Carlos Madsen MD 02/16/2025 11:40 AM [facility]
[2025-02-16 11:57] LABS: MANUAL DIFF FLAG NO
[2025-02-16 12:32] LABS: Hematocrit 44.6 % (37.0-47.0); Hemoglobin 15.3 g/dl (12.0-16.0); Imm Gran Abs Auto 0.04 X10*3/uL (0.00-0.03); Imm Gran Pct Auto 0.3 % (0.0-0.4); Lymphocytes Absolute Auto 3.2 X10*3/uL (1.2-4.9); Mean Corpuscular HGB Conc 34.3 g/dl (31.0-35.0); Mean Corpuscular Hemoglobin 29.0 pg (27.0-33.0); Mean Corpuscular Volume 84.6 fL (80.0-98.0); NRBC Abs Auto 0.000 X10*3/uL (0.0-0.012); NRBC Pct Auto 0.0 /100WBC (0.0-0.2); Platelet Count 347 X10*3/uL (160-400); Red Blood Count 5.27 X10*6/uL (4.20-5.50); White Blood Count 11.8 X10*3/uL (4.8-10.8)
[2025-02-16 13:00] LABS: Alanine Aminotransferase 20 U/L (0-31); Albumin Level 4.6 g/dL (3.5-5.0); Alkaline Phosphatase 99 U/L (39-117); Anion Gap 13 (12-20); Aspartate Amino Transferase 17 U/L (5-31); Blood Urea Nitrogen 11 mg/dL (9-16); Calcium 10.0 mg/dL (8.4-10.2); Carbon Dioxide 24 mmol/L (22-29); Chloride 104 mmol/L (96-108); Estimated Glomerular Filt Rate > 60; Lipase 12 U/L (8-78); Potassium 4.0 mmol/L (3.3-5.1); Sodium 137 mmol/L (135-145); Total Protein 6.9 g/dL (6.5-8.0)
== END ==
LOC: HO.NUCMED 07:47
PROVIDERS: Absent Provider Physician Assistant; PCP Physician Assistant; Visit Provider Nurse Practitioner
DX: R68.83 Chills (without fever) (principal); R73.01 Impaired fasting glucose; M25.50 Pain in unspecified joint; R11.2 Nausea with vomiting, unspecified
CPT/HCPCS: 36415; 78264; 80053; 83690; 85025; 86140; A9541

== ENCOUNTER → 2025-02-16 07:51 | Outpatient (BNV) | payer OTHER, SELFPAY | PROVIDERS: Absent Provider Physician Assistant; PCP Physician Assistant; Visit Provider Radiology Diagnostic Radiology | DX: R11.2 Nausea with vomiting, unspecified (principal); M25.50 Pain in unspecified joint | CPT/HCPCS: 78264 ==

== ENCOUNTER → 2025-02-26 08:06 | Outpatient (REF) | payer OTHER, SELFPAY ==
--- OUTSIDE RECORDS SUMMARY | 2009-08-29 23:00 | XMS_ITS | Encounter Summary ---
Author Organization [facility] Address [address] [place] [address] Phone Care Team Providers Care Net Making Supervisor Name Role Phone Unavailable Primary Care Provider Unavailabl e Encounter Details Date Type Department Care Team (Late st Contact Info) Description 08/30/2009 Hospital Encounter [facility],Outside Imaging [address] [place], [place] [phone] System, Provider Not In, PhD [address] [address] Social History Tobacco Use Types Packs/Day Years Used Date Smoking Tobacco: Every Day Cigarettes Smokeless Tobacco: Never Education Answer Date Recorded Are you interested in more education? Not on javier e 07/06/2022 Are you concerned about learning? Not on file 07/06/2022 No 07/06/2022 No 07/06/2022 Digital Access Answer Date Recorded No 08/04/2022 No 08/04/2022 Reliable internet access at home? Not on file 08/04/2022 Device with a working camera? Not on file Comments No Sex and Gender Information Value Date Recorded Sex Assigned at Female 09/10/2017 4:45 PM EDT Legal Sex Female 9:44 PM EDT Gender Identity Female 09/10/2017 4:45 PM EDT Sexual Orientation Not on file documented as of this encounter Plan of Treatment Not on file documented as of this encounter Procedures Procedure Name Priority Date/Time Associated Diagnosis Comments BI MAMMOGRAM OUTSIDE (NO INTERPRETATION) Routine 08/30/2009 12:00 AM EDT documented in this encounter Results * Mammogram Outside (No Interpretation) (08/30/2009 12:00 AM EDT) Narrative SYSTEMGENERATED, DOCUMENTATION - 07/04/2020 5:05 PM EDT This study is for PACS storage only and not for interpretation. us Provider Not In System PhD IMG OUTSIDE IMAGING W /OUT INTERPRETATION Final Result documented in this encounter Visit Diagnoses Not on filedocumented in this encounter Additional Health Concerns Infection Onset Date Last Indicated Resolved Time CoV-Risk 06/26/2019 06/27/2019 07/11/2019 1:23 AM EDT documented as of this encounter Additional Source Comments The information contained in this document represents components of the legal health record. It is not the complete legal health record.[facility]
--- OUTSIDE RECORDS SUMMARY | 2009-08-31 23:00 | XMS_ITS | Encounter Summary ---
Author Organization [facility] Address [address] [place] [address] Phone Care Team Providers Care Photographer Aerial Name Role Phone Unavailable Primary Care Provider Unavailabl e Encounter Details Date Type Department Care Team (Late st Contact Info) Description 09/01/2009 Hospital Encounter [facility],Outside Imaging 30 [place], [place] [phone] System, Provider Not In, PhD [address] [address] Social History Tobacco Use Types Packs/Day Years [...] Name Priority Date/Time Associated Diagnosis Comments BI US BREAST OUTSIDE (NO INTERPRETATION) Routine 09/01/2009 12:00 AM EDT documented in this encounter Results * US Breast Outside (No Interpretation) (09/01/2009 12:00 AM EDT) Narrative SYSTEMGENERATED, DOCUMENTATION - 07/04/2020 5:04 PM EDT This study is for PACS [...] It is not the complete legal health record.[facility]
--- OUTSIDE RECORDS SUMMARY | 2010-09-03 23:00 | XMS_ITS | Encounter Summary ---
Author Organization [facility] Address [address] [place] [address] Phone Care Team Providers Care Supervisor Capacitor Processing Name Role Phone Unavailable Primary Care Provider Unavailabl e Encounter Details Date Type Department Care Team (Late st Contact Info) Description 09/04/2010 Hospital Encounter [facility],Outside Imaging 30 [place], [place] [phone] System, Provider Not In, PhD [address] [address] Social History Tobacco Use Types Packs/Day Years [...] Comments BI MAMMOGRAM OUTSIDE (NO INTERPRETATION) Routine 09/04/2010 12:00 AM EDT documented in this encounter Results * Mammogram Outside (No Interpretation) (09/04/2010 12:00 AM EDT) Narrative SYSTEMGENERATED, DOCUMENTATION - [...] It is not the complete legal health record.[facility]
--- OUTSIDE RECORDS SUMMARY | 2011-09-19 23:00 | XMS_ITS | Encounter Summary ---
Author Organization [facility] Address [address] [place] [address] Phone Care Team Providers Care Electric Meter Setter Name Role Phone Unavailable Primary Care Provider Unavailabl e Encounter Details Date Type Department Care Team (Late st Contact Info) Description 09/20/2011 Hospital Encounter [facility],Outside Imaging 30 [place], [place] [phone] System, Provider Not In, PhD [address] [address] Social History Tobacco Use Types Packs/Day Years [...] Comments BI MAMMOGRAM OUTSIDE (NO INTERPRETATION) Routine 09/20/2011 12:00 AM EDT documented in this encounter Results * Mammogram Outside (No Interpretation) (09/20/2011 12:00 AM EDT) Narrative SYSTEMGENERATED, DOCUMENTATION - 07/04/2020 5:03 PM EDT This study is for PACS [...] is not the complete legal health record.[facility]
--- OUTSIDE RECORDS SUMMARY | 2012-11-12 23:00 | XMS_ITS | Encounter Summary ---
Author Organization [facility] Address [address] [place] [address] Phone Care Team Providers Care Dough Cutting Machine Operator Name Role Phone Unavailable Primary Care Provider Unavailabl e Encounter Details Date Type Department Care Team (Late st Contact Info) Description 11/13/2012 Hospital Encounter [facility],Outside Imaging 30 [place], [place] [phone] System, Provider Not In, PhD [address] [address] Social History Tobacco Use Types Packs/Day Years [...] Comments BI MAMMOGRAM OUTSIDE (NO INTERPRETATION) Routine 11/13/2012 12:00 AM EDT documented in this encounter Results * Mammogram Outside (No Interpretation) (11/13/2012 12:00 AM EDT) Narrative SYSTEMGENERATED, DOCUMENTATION - [...] It is not the complete legal health record.[facility]
--- OUTSIDE RECORDS SUMMARY | 2024-10-21 11:30 | XMS_ITS ---
Author Organization [facility] madeleine Address [address] [place] [address] Care Team Providers Care Emergency Service Worker Name Role Phone Esme Claudio Primary Care Provider [phone] Austin Rios [phone] REASON FOR VISIT f/u swelling (IH) Encounters Encounter Location Date Provider Diagnosis [facility] [address] [place] [address] 10/21/2024 Austin Rios Plan Of Treatment Next Appt Details Provider Name:Austin Rios, 0 04/22/2025 09:00:00 AM, [address] [place] [address], [phone], Progress Notes * RAND SAMANIEGODOB:1960 (64 yo F)Acc No.[id number]:10/21/2024 Progress Note Patient: RAND JESUS Provider: ANTONELLA Carter :1960 A ge:64 Y S ex:Female Date:10/21/2024 HN#:[id number] Address:[place] [facility] Pcp:Esme Claudio Subjective: * Chief Complaints: * f /u swelling (IH) Billing Information: * Procedure Codes: Care Plan Details* * Electronic signature of Austin Rios PA-C on 02/26/2025 at 08:12 AM EST Sign off status: Pending * Provider: ANTONELLA Carter Date: 0 10/21/2024 Generated for Printi ng/Faxing/eTransmitting on: 1 04/29/2024 08:12 AM EST
--- OUTSIDE RECORDS SUMMARY | 2025-01-01 03:00 | XMS_ITS ---
Author Organization [facility] madeleine Address [address] [place] [address] Care Team Providers Care Sludge Control Attendant Name Role Phone Esme Claudio Primary Care Provider [phone] Austin Rios Unavailable [phone] Tyler Bryant [phone] REASON FOR VISIT acupuncture f/u Encounters Encounter Location Date Provider Diagnosis [facility] [address] [place] [address] 01/01/2025 Tyler Bryant Plan Of Treatment Next Appt Details Provider Name:Austin Rios, 0 04/22/2025 09:00:00 AM, [address] [place] [address], [phone], Progress Notes * RAND SAMANIEGODOB:1960 (64 yo F)Acc No.[id number]:01/01/2025 Patient: RAND JESUS Provider: MENDEZ Dodson MAOM, LMT :1960 A ge:64 Y S ex:Female Date:01/01/2025 Address:[address] [place], [place] [id number] Pcp:Esme Claudio Subjective: * Chief Complaints: * A cupuncture f/u Billing Information: * Procedure Codes: * Electronic signature of MENDEZ Diallo on 02/26/2025 at 08:12 AM EST Sign off status: Pending * Provider: MENDEZ Dodson MAOM LMT Date: Generated for Printing/Faxing/eTransmitting on: 1 04/29/2024 08:12 AM EST
--- OUTSIDE RECORDS SUMMARY | 2025-02-15 03:30 | XMS_ITS ---
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 Name Role Phone Esme Claudio Primary Care Provider Austin Rios Unavailable [phone] REASON FOR VISIT f/u fatigue (IH) Medications Medication SIG (Take, Route, Frequency, Duration) Notes Start Date End Date Status DULoxetine HCl 60 MG Capsule Delayed Release Particles 1 capsule Orally Once a day; Duration: 60 days 02/11/2025 Active LORazepam 1 MG Tablet 1 tab(s) orally 1 times a day prn anxiety - sparing use; Duration: 30 days PRN 02/11/2025 Active Promethazine HCl 25 MG Suppository 1 suppository as needed Rectal every 6 hrs; Duration: 30 days As needed (Max 50mg per day) Max 50mg per day 05/01/2024 Unknown Potassium Chloride ER 20 MEQ Tablet Extended Release 1 tablet with food Orally twice day; Duration: 30 days As needed 09/24/2024 Unknown Ondansetron 4 MG Tablet Disintegrating 1 tab(s) orally every 8 hours; Duration: 30 days As needed Unknown Phenergan 12.5 MG Suppository 1 suppository as needed Rectal every 6 hrs; Duration: 30 days As needed 05/05/2024 Unknown amLODIPine Besylate 10 MG Tablet 1 tablet Orally Once a day; Duration: 90 days Unknown Adderall XR 30 MG Capsule Extended Release 24 Hour 1 capsule in the morning Orally Once a day; Duration: 60 days 01/25/2025 Unknown Cyclobenzaprine HCl 10 MG Tablet 1 tab(s) orally 3 times a day; Duration: 10 days As needed Unknown Spironolactone 50 MG Tablet 1 tablet Orally twice a day; Duration: 90 days 10/05/2024 Unknown Mupirocin 2 % Ointment 1 micah applied topically 3 times a day; Duration: 10 days As needed 03/01/2023 Unknown Levothyroxine Sodium 100 MCG Tablet 1 tab(s) orally once a day; Duration: 90 days Unknown Naproxen 250 MG Tablet 1 tablet with food or milk as needed Orally every 12 hrs; Duration: 30 days As needed 03/30/2024 Unknown Albuterol Sulfate HFA 108 (90 Base) MCG/ACT Aerosol Solution 2 puff(s) inhaled 4 times a day prn; Duration: 90 days prn 08/19/2017 Unknown Adderall 5 MG Tablet 1 tablet Orally once a day; Duration: 30 days sparingly only PRN 09/04/2024 Unknown Fish Oil 2 capsules Orally once daily; Duration: 30 days Unknown Qvar RediHaler 80 MCG/ACT Aerosol Breath Activated 1 puff(s) inhaled 2 times a day; Duration: 90 days 06/11/2018 Unknown Vitamin B Complex TAB 1 PO QD Unknown Flonase Allergy Relief 50 MCG/ACT Suspension 1 spray in each nostril Nasally Twice a day; Duration: 30 days 02/05/2024 Unknown Encounters Encounter Location Date Provider Diagnosis [facility] [address] [place] [address] 02/15/2025 Austin Rios Nausea R11.0 and Fatigue R53.83 Assessments Encounter Date Diagnosis (ICD Code) Assessment Notes Treatment Notes Treatment Clinical Notes Section Notes 02/15/2025 Nausea (ICD-10 - R11.0) Important to keep hydrated and nourished, check labs as precaution, with past episodes with more severe vomiting she had low K+ issues. Less vomiting this time. Will ensure labs ok and has continued GI work up in coming weeks. Aware to call back sooner as needed or go to ED if severe worsening. FMLA ppw completed 02/15/2025 Fatigue (ICD-10 - R53.83) mood ok, Ativan PRN only for panic, aware of risks and using sparingly Plan Of Treatment Medication Medication Name Sig Start Date Stop Date Notes DULoxetine HCl 60 MG Capsule Delayed Release Particles 1 capsule Orally Once a day; Duration: 60 days 02/11/2025 LORazepam 1 MG Tablet 1 tab(s) orally 1 times a day prn anxiety - sparing use; Duration: 30 days 02/11/2025 PRN Treatment Notes Assessment Notes Nausea Important to keep hy drated and nourished, check labs as precaution, with past episodes with more severe vomiting she had low K+ issues. Less vomiting this time. Will ensure labs ok and has continued GI work up in coming weeks. Aware to call back sooner as needed or go to ED if severe worsening. FMLA ppw completed Fatigue mood ok, Ativan PRN only for panic, aware of risks and using sparingly Next Appt Details Provider Name:Austin Rios, 0 04/22/2025 09:00:00 AM, [address] [place] [address], [phone], History and Physical Notes * Examination Category Sub-Category Detail Notes Category Not [...] Notes * RAND SAMANIEGODOB:1960 (64 yo F)Acc No.[id number]:02/15/2025 Progress Note Patient: RAND JESUS Provider: ANTONELLA Carter :1960 A ge:64 Y S ex:Female Date:02/15/2025 C #:[id number] Address:[address] [place], [place] [phone] Pcp:Esme Claudio Subjective: * Chief Complaints: * f /u fatigue (IH) * HPI: I nterim History: 64 year old female presents for follow up. * ROS: S ee HPI. Other systems reviewed and noncontributory except for as noted above . * Medications: U nknownVitamin B Complex TAB 1 PO QD Qvar RediHaler 80 MCG/ACT Aerosol Breath Activated 1 puff(s) inhaled 2 times a day Fish Oil 2 capsules Orally once daily Flonase Allergy Relief 50 MCG/ACT Suspension 1 spray in each nostril Nasally Twice a day Naproxen 250 MG Tablet 1 tablet with food or milk as needed Orally every 12 hrs As neededAdderall 5 MG Tablet 1 tablet Orally once a day sparingly only, Notes to Pharmacist: PRNAlbuterol Sulfate HFA 108 (90 Base) MCG/ACT Aerosol Solution 2 puff(s) inhaled 4 times a day prn , Notes to Pharmacist: prnLevothyroxine Sodium 100 MCG Tablet 1 tab(s) orally once a day Mupirocin 2 % Ointment 1 micah applied topically 3 times a day As neededSpironolactone 50 MG Tablet 1 tablet Orally twice a day Cyclobenzaprine HCl 10 MG Tablet 1 tab(s) orally 3 times a day As neededAdderall XR 30 MG Capsule Extended Release 24 Hour 1 capsule in the morning Orally Once a day amLODIPine Besylate 10 MG Tablet 1 tablet Orally Once a day Phenergan 12.5 MG Suppository 1 suppository as needed Rectal every 6 hrs As neededPotassium Chloride ER 20 MEQ Tablet Extended Release 1 tablet with food Orally twice day As neededPromethazine HCl 25 MG Suppository 1 suppository as needed Rectal every 6 hrs As needed (Max 50mg per day), Notes to Pharmacist: Max 50mg per dayOndansetron 4 MG Tablet Disintegrating 1 tab(s) orally every 8 hours As neededDULoxetine HCl 60 MG Capsule Delayed Release Particles 1 capsule Orally Once a day LORazepam 1 MG Tablet 1 tab(s) orally 1 times a day prn anxiety - sparing use , Notes to Pharmacist: PRNUnknown Vitamin B Complex TAB 1 PO QD Unknown Qvar RediHaler 80 MCG/ACT Aerosol Breath Activated 1 puff(s) inhaled 2 times a day Unknown Fish Oil 2 capsules Orally once daily Unknown Flonase Allergy Relief 50 MCG/ACT Suspension 1 spray in each nostril Nasally Twice a day Unknown Naproxen 250 MG Tablet 1 tablet with food or milk as needed Orally every 12 hrs As neededUnknown Adderall 5 MG Tablet 1 tablet Orally once a day sparingly only, Notes to Pharmacist: PRNUnknown Albuterol Sulfate HFA 108 (90 Base) MCG/ACT Aerosol Solution 2 puff(s) inhaled 4 times a day prn , Notes to Pharmacist: prnUnknown Levothyroxine Sodium 100 MCG Tablet 1 tab(s) orally once a day Unknown Mupirocin 2 % Ointment 1 micah applied topically 3 times a day As neededUnknown Spironolactone 50 MG Tablet 1 tablet Orally twice a day Unknown Cyclobenzaprine HCl 10 MG Tablet 1 tab(s) orally 3 times a day As neededUnknown Adderall XR 30 MG Capsule Extended Release 24 Hour 1 capsule in the morning Orally Once a day Unknown amLODIPine Besylate 10 MG Tablet 1 tablet Orally Once a day Unknown Phenergan 12.5 MG Suppository 1 suppository as needed Rectal every 6 hrs As neededUnknown Potassium Chloride ER 20 MEQ Tablet Extended Release 1 tablet with food Orally twice day As neededUnknown Promethazine HCl 25 MG Suppository 1 suppository as needed Rectal every 6 hrs As needed (Max 50mg per day), Notes to Pharmacist: Max 50mg per dayUnknown Ondansetron 4 MG Tablet Disintegrating 1 tab(s) orally every 8 hours As neededUnknown DULoxetine HCl 60 MG Capsule Delayed Release Particles 1 capsule Orally Once a day Unknown LORazepam 1 MG Tablet 1 tab(s) orally 1 times a day prn anxiety - sparing use , Notes to Pharmacist: PRN Objective: * Examination: G eneral Examination: General Appearance: W ell appearing and in no acute distress. S kin L ips and nail beds pink. H EENT: H ead - NC/AT, clear conjunctiva. N don, Thyroid : s upple. L ungs: N o use of accessory muscles, no audible wheezes, no stridor. E xtremities: n o clubbing, no edema. N eurologic Exam: n on-focal exam. M usculoskeletal N ormal gait and station. Assessment: * Assessment: 1. N ausea - R11.0 (Primary) 2 . F atigue - R53.83 Plan: * Treatment: 2. F atigue Refill DULoxetine HCl Capsule Delayed Release Particles, 60 MG, 1 capsule, Orally, Once a day, 60 days, 60 Capsule, Refills 1; R efill LORazepam Tablet, 1 MG, 1 tab(s), orally, 1 times a day prn anxiety - sparing use, 30 days, 14, Refills 0, Notes to Pharmacist: PRN. Notes: mood ok, Ativan PRN only for panic, aware of risks and using sparingly Billing Information: * Procedure Codes: Care Plan Details* * Electronic signature of Austin Rios PA-C on 02/26/2025 at 08:10 AM EST Sign off status: Pending * Provider: ANTONELLA Carter Date: 04/18/2024 Generated for Deanna callaway/Bart/Foreign on: 04/29/2024 08:10 AM EST
--- OUTSIDE RECORDS SUMMARY | 2025-02-22 03:30 | XMS_ITS ---
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 Role Phone Esme Claudio Primary Care Provider [phone] Austin Rios [phone] REASON FOR VISIT f/u fatigue (IH), flu UTD, due for covid (checked MIIS-JM) Encounters Encounter Location Date Provider Diagnosis [facility] [address] [place] [address] 02/22/2025 Austin Rios No Show or Late Cancel NS.LTCX Assessments Encounter Date Diagnosis (ICD Code) Assessment Notes Treatment Notes Treatment Clinical Notes Section Notes 02/22/2025 No Show or Late Cancel (ICD-10 - NS.LTCX) Plan Of Treatment Next Appt Details Provider Name:Austin Russo Gabriel, 0 04/22/2025 09:00:00 AM, [address] [place] [address], [phone], Progress Notes * RAND SAMANIEGODOB:1960 (64 yo F)Acc No.[id number]:02/22/2025 Progress Note Patient: RAND JESUS Provider: ANTONELLA Carter :1960 A ge:64 Y S ex:Female Date:02/22/2025 C HN#:[id number] Address:[address] [place], [place] [phone] Pcp:Esme Claudio Subjective: * Chief Complaints: * f /u fatigue (IH)flu UTD, due for covid (checked MIIS-JM) Assessment: * Assessment: 1. N o Show or Late Cancel - NS.LTCX (Primary) Billing Information: * Procedure Codes: Care Plan Details* * Electronic signature of Austin Rios PA-C on 02/26/2025 at 08:13 AM EST Sign off status: Pending * Provider: ANTONELLA Carter Date: 1 04/25/2024 Generated for Deanna callaway/Bart/Valeitting on: 04/29/2024 08:13 AM EST
--- OUTSIDE RECORDS SUMMARY | 2025-02-24 05:00 | XMS_ITS ---
Author Organization [facility] madeleine Address [address] [place] [address] Care Team Providers Care Prepress Technician Name Role Phone Esme Claudio Primary Care Provider Austin Rios Unavailable [phone] Allergies Allergen (clinical drug ingredient) Drug/Non Drug Allergy documented on EMR Reaction Allergy Type Onset Date Status Information temporarily unavailable LATEX SENSITIVE (uncoded) when wearing gloves Allergy Active Information temporarily unavailable Percocet itchy mouth, rash Drug Allergy Active REASON FOR VISIT f/u fatigue, flu UTD, due for covid (checked DAVID-CASEY),declines Medications Medication SIG (Take, Route, Frequency, Duration) Notes Start Date End Date Status Ondansetron 4 MG Tablet Disintegrating 1 tab(s) orally every 8 hours; Duration: 30 days As needed Active Adderall XR 30 MG Capsule Extended Release 24 Hour 1 capsule in the morning Orally Once a day; Duration: 60 days 01/25/2025 Not-Taking/PRN Adderall 5 MG Tablet 1 tablet Orally once a day; Duration: 30 days sparingly only PRN 09/04/2024 Not-Taking/PRN Albuterol Sulfate HFA 108 (90 Base) MCG/ACT Aerosol Solution 2 puff(s) inhaled 4 times a day prn; Duration: 90 days prn 08/19/2017 Not-Taking/PRN Spironolactone 50 MG Tablet 1 tablet Orally daily; Duration: 90 days 10/05/2024 Active Cyclobenzaprine HCl 10 MG Tablet 1 tab(s) orally 3 times a day; Duration: 10 days As needed Active amLODIPine Besylate 10 MG Tablet 1 tablet Orally Once a day; Duration: 90 days Active Levothyroxine Sodium 100 MCG Tablet 1 tab(s) orally once a day; Duration: 90 days Active Flonase Allergy Relief 50 MCG/ACT Suspension 1 spray in each nostril Nasally Twice a day; Duration: 30 days 02/05/2024 Active Naproxen 250 MG Tablet 1 tablet with food or milk as needed Orally every 12 hrs; Duration: 30 days As needed 03/30/2024 Active LORazepam 1 MG Tablet 1 tab(s) orally 1 times a day prn anxiety - sparing use; Duration: 30 days PRN 02/11/2025 Active DULoxetine HCl 60 MG Capsule Delayed Release Particles 1 capsule Orally Once a day; Duration: 60 days 02/11/2025 Active Qvar RediHaler 80 MCG/ACT Aerosol Breath Activated 1 puff(s) inhaled 2 times a day; Duration: 90 days 06/11/2018 Active Social History Social History Social History Social Info Question Answer Notes Smoking: Former Smoker: Yes quit 11/2023 Additional Details Category Social Info Options Details Social History 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 she has lots of friends Problems Problem Type SNOMED Code ICD Code Onset Dates Problem Status W/U Status Risk Notes Problem Obese class II ([id number] [id number]) BMI 35.0-35.9, adult (Z68.35) Active confirmed Vital Signs Temperature 97.6 degrees Fahrenheit 02/25/20 25 Blood pressure systolic 124 mm Hg 02/25/20 25 Blood pressure diastolic 70 mm Hg 025 Height 59.75 in 02/24/2025 Weight 182.0 lbs 02/24/2025 BMI 35.84 kg/m2 02/24/2025 Oximetry 97 02/24/2025 Encounters Encounter Location Date Provider Diagnosis [facility] [address] [place], [place] [address] 02/24/2025 Austin Rios Nausea R11.0 ; Fatig ue R53.83 ; Tachycardia, unspecified R00.0 ; Hypothyroidism, unspecified E03.9 and BMI 35.0-35.9, adult Z68.35 Assessments Encounter Date Diagnosis (ICD Code) Assessment Notes Treatment Notes Treatment Clinical Notes Section Notes 02/24/2025 Nausea (ICD-10 - R11.0) feeling better presently, had recent gastric emptying study and now sched for HIDA scan this week. continues with GI work up b 02/24/2025 Fatigue (ICD-10 - R53.83) mood ok, feels anxiety sometimes worsens her physical symptoms when she starts to have the nausea and vomiting b 02/24/2025 Tachycardia, unspecified (ICD-10 - R00.0) peristent tachycardia, no recent adderall use either. Will check labs and order heart monitor. no palpitations, dizziness, or other symptoms. Plans to get back to more regular exercise as well. call back if any sxs develop b 02/24/2025 Hypothyroidism, unspecified (ICD-10 - E03.9) reports has not been taking levothyroxine recently, labs ordered. b 02/24/2025 BMI 35.0-35.9, adult (ICD-10 - Z68.35) Discussed lifestyle and consideration of GLP1 medication, wants to discuss at next visit b Plan Of Treatment Treatment Notes Assessment Notes Nausea feeling better prese ntly, had recent gastric emptying study and now sched for HIDA scan this week. continues with GI work up Fatigue mood ok, feels anxie ty sometimes worsens her physical symptoms when she starts to have the nausea and vomiting Tachycardia, unspecified peristent tachy cardia, no recent adderall use either. Will check labs and order heart monitor. no palpitations, dizziness, or other symptoms. Plans to get back to more regular exercise as well. call back if any sxs develop Hypothyroidism, unspecified reports has not been taking levothyroxine recently, labs ordered. BMI 35.0-35.9, adult Discussed lifestyle and consideration of GLP1 medication, wants to discuss at next visit Pending Test Test Name Order Date TSH WITH REFLEX TO FT4 02/24/2025 CBC 02/24/2025 COMP MET PANEL 02/24/2025 Ferritin 02/24/2025 Next Appt Details Follow Up: as sched, Reason: Provider Name:Austin Rios, 0 04/22/2025 09:00:00 AM, [address] [place] [address], [phone], History and Physical Notes * Examination Category [...] x 3 Musculoskeletal Normal gait and stat ion, freely moving all extremities Progress Notes * RAND SAMANIEGODOB:1960 (64 yo F)Acc No.[id number]:02/24/2025 Progress Note Patient: RAND JESUS Provider: ANTONELLA Carter :1960 A ge:64 Y S ex:Female Date:02/24/2025 C HN#:[id number] Address:[address] [place], [place] [id number] Pcp:Esme Claudio Subjective: * Chief Complaints: * F /u fatigueflu UTD, due for covid (checked MIIS-),declines * HPI: I nterim History: 64 year old female presents for follow up Feeling better now since saturday. Less nausea. No recurrence of vomiting. Feeling less anxious now that symptoms are abating a bit Continuous FMLA approved yesterday. Had recent gastric emptying study was normal. On saturday scheduled for HIDA scan. 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 Hasnt taken adderall in weeks. no caffeine, alcohol , tobacco No palptiations Had recent labs at [facility] , we were not sent results. Patient brings them up on her phone, renal fct, electrolytes in range. * ROS: S ee HPI. Other systems reviewed and noncontributory except for as noted above . * Medical History: Seasonal allergies Pneumonia 08/25/09-and 12/2014-(many pneumonias as a child) Hypothyroidism HTN 09/2015 Pneumonia NOS Covid19 02/2022; Covid19 08/2023 NORMAL ECHO 12/2023; CAC score 0 01/2024 Medical History Verified * Surgical History: (2) c-sections 1986,1998 abdominal lipoma removed 2003 endometrial ablation- [place] 07/2007 L rotator cuff tear repair w/ 10/04/09 decompression of left median nerve dr Betancur 06/07/2010 S/P Abdominal Endometrioma ( [place]) 2003 Rt rotator cuff repair- Dr. Lovelace 05/31/2015 LRTI - arthroscopic surgery - Nicole [facility], Dr. Sherman 12/22/2020 Surgical History verified. * Hospitalization/Major Diagno stic Procedure: [facility] for N/V, abdominal pain 08/22-08/24/22 [facility] ER visit for vomiting 12/2022 [facility] ER for vomiting 02/2024 C for abd pain and vomiting 05/01/2024 Hospitalization [...] healthy. . F amily History Verified.. kids-Pillo, Megan Rios and Carol Montes. * Social History: Ana perkins: in [place] alone. Smoking: yes F ormer Smoker: Y es quit 11/2023. A lcohol: Occasional wine @2x per month. Drug use: rare THC gummy. 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 Children: 4. 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 Taoist: Nondenominational, somewhat practicing- [employer]. Exercise: walks dog daily- - swim/kayak/bike all summer 3-4x week. Sexually active: No. Pets: 1 dog, 1 cat. Social History Verified. fun-kayak/bike, read, concerts etc. she has lots of friends. * Medications: T akingDULoxetine HCl 60 MG Capsule Delayed Release Particles 1 capsule Orally Once a day LORazepam 1 MG Tablet 1 tab(s) orally 1 times a day prn anxiety - sparing use , Notes to Pharmacist: PRNQvar RediHaler 80 MCG/ACT Aerosol Breath Activated 1 puff(s) inhaled 2 times a day Flonase Allergy Relief 50 MCG/ACT Suspension 1 spray in each nostril Nasally Twice a day Naproxen 250 MG Tablet 1 tablet with food or milk as needed Orally every 12 hrs As neededLevothyroxine Sodium 100 MCG Tablet 1 tab(s) orally once a day Spironolactone 50 MG Tablet 1 tablet Orally daily Cyclobenzaprine HCl 10 MG Tablet 1 tab(s) orally 3 times a day As neededamLODIPine Besylate 10 MG Tablet 1 tablet Orally Once a day Ondansetron 4 MG Tablet Disintegrating 1 tab(s) orally every 8 hours As neededTaking DULoxetine HCl 60 MG Capsule Delayed Release Particles 1 capsule Orally Once a day Taking LORazepam 1 MG Tablet 1 tab(s) orally 1 times a day prn anxiety - sparing use , Notes to Pharmacist: PRNTaking Qvar RediHaler 80 MCG/ACT Aerosol Breath Activated 1 puff(s) inhaled 2 times a day Taking Flonase Allergy Relief 50 MCG/ACT Suspension 1 spray in each nostril Nasally Twice a day Taking Naproxen 250 MG Tablet 1 tablet with food or milk as needed Orally every 12 hrs As neededTaking Levothyroxine Sodium 100 MCG Tablet 1 tab(s) orally once a day Taking Spironolactone 50 MG Tablet 1 tablet Orally daily Taking Cyclobenzaprine HCl 10 MG Tablet 1 tab(s) orally 3 times a day As neededTaking amLODIPine Besylate 10 MG Tablet 1 tablet Orally Once a day Taking Ondansetron 4 MG Tablet Disintegrating 1 tab(s) orally every 8 hours As neededNot-Taking/PRNAdderall 5 MG Tablet 1 tablet Orally once a day sparingly only, Notes to Pharmacist: PRNAlbuterol Sulfate HFA 108 (90 Base) MCG/ACT Aerosol Solution 2 puff(s) inhaled 4 times a day prn , Notes to Pharmacist: prnAdderall XR 30 MG Capsule Extended Release 24 Hour 1 capsule in the morning Orally Once a day Not-Taking/PRN Adderall 5 MG Tablet 1 tablet Orally once a day sparingly only, Notes to Pharmacist: PRNNot-Taking/PRN Albuterol Sulfate HFA 108 (90 Base) MCG/ACT Aerosol Solution 2 puff(s) inhaled 4 times a day prn , Notes to Pharmacist: prnNot-Taking/PRN Adderall XR 30 MG Capsule Extended Release 24 Hour 1 capsule in the morning Orally Once a day DiscontinuedVitamin B Complex TAB 1 PO QD Fish Oil 2 capsules Orally once daily Mupirocin 2 % Ointment 1 micah applied topically 3 times a day As neededPhenergan 12.5 MG Suppository 1 suppository as needed Rectal every 6 hrs As neededPotassium Chloride ER 20 MEQ Tablet Extended Release 1 tablet with food Orally twice day As neededPromethazine HCl 25 MG Suppository 1 suppository as needed Rectal every 6 hrs As needed (Max 50mg per day), Notes to Pharmacist: Max 50mg per dayMedication List reviewed and reconciled with the patientDiscontinued Vitamin B Complex TAB 1 PO QD Discontinued Fish Oil 2 capsules Orally once daily Discontinued Mupirocin 2 % Ointment 1 micah applied topically 3 times a day As neededDiscontinued Phenergan 12.5 MG Suppository 1 suppository as needed Rectal every 6 hrs As neededDiscontinued Potassium Chloride ER 20 MEQ Tablet Extended Release 1 tablet with food Orally twice day As neededDiscontinued Promethazine HCl 25 MG Suppository 1 suppository as needed Rectal every 6 hrs As needed (Max 50mg per day), Notes to Pharmacist: Max 50mg per dayMedication List reviewed and reconciled with the patient * Allergies: L ATEX SENSITIVE: when wearing glovesPercocet: itchy mouth, rashyesAllergies Verified. Objective: * Vitals: I nitials:jm, Ht: 59.75 in, Wt: 182.0 lbs, BMI: 35.84 Index, Temp: 97.6 F, Temp Route: T, HR: 117 /min, PulseOx: 97, BP: 124/70 mm Hg. * Examination: G eneral Examination: General Appearance: W ell appearing and in no acute distress. S kin L ips and nail beds pink. H EENT: H ead - NC/AT, clear conjunctivae, voice clear, handling secretions. N don, Thyroid : s upple. L ungs: N o use of accessory muscles, no audible wheezes, no stridor. E xtremities: n o clubbing, no edema. N eurologic Exam: n on-focal exam, alert and oriented x 3. M usculoskeletal N ormal gait and station, freely moving all extremities. Assessment: * Assessment: 1. N ausea - R11.0 (Primary) 2 . F atigue - R53.83 3 . T achycardia, unspecified - R00.0 4 . H ypothyroidism, unspecified - E03.9 ? 5 . B ND 35.0-35.9, adult - Z68.35 b Plan: * Treatment: 2. F atigue L AB: Ferritin Notes: mood ok, feels anxiety sometimes worsens her physical symptoms when she starts to have the nausea and vomiting 3. T achycardia, unspecified L AB: CBC L AB: COMP MET PANEL Notes: peristent tachycardia, no recent adderall use either. Will check labs and order heart monitor. no palpitations, dizziness, or other symptoms. Plans to get back to more regular exercise as well. call back if any sxs develop 4. H ypothyroidism, unspecified L AB: TSH WITH REFLEX TO FT4 Notes: reports has not been taking levothyroxine recently, labs ordered. 5. B ND 35.0-35.9, adult Notes: Discussed lifestyle and consideration of GLP1 medication, wants to discuss at next visit? * Follow Up: a s sched Billing Information: * Visit Code: 73347 Office Visit, Established Pt. Care Plan Details* * Electronic signature of Austin Rios PA-C on 02/26/2025 at 08:11 AM EST Sign off status: Pending * Provider: ANTONELLA Carter Date: 04/27/2024 Generated for Deanna callaway/Bart/Valeitting on: 04/29/2024 08:11 AM EST
--- OUTSIDE RECORDS SUMMARY | 2025-02-24 05:38 | XMS_ITS ---
Author Organization [facility] madeleine Address [address] [place] [address] Care Team Providers Care Winterizer Name Role Phone Esme Claudio Primary Care Provider Austin Rios [phone] REASON FOR VISIT order heart monitor Encounters Encounter Location Date Provider Diagnosis [place] [address] [place] [address] 02/24/2025 Austin Rios Tachycardia, unspecified R00.0 Assessments Encounter Date Diagnosis (ICD Code) Assessment Notes Treatment Notes Treatment Clinical Notes Section Notes 02/24/2025 Tachycardia, unspecified (ICD-10 - R00.0) Plan Of Treatment Pending Test Test Name Order Date Holter Monitor, 3 Days 02/24/2025 Next Appt Details Provider Name:Austin Rios, 0 04/22/2025 09:00:00 AM, [address] [place] [address], [phone], Progress Notes * RAND SAMANIEGODOB:1960 (64 yo F)Acc No.[id number]:02/24/2025 Patient: RAND JESUS :1960 A ge:64 Y S ex:Female Address:[place] [address] Subjective: * Chief Complaints: * O rder heart monitor Assessment: * Assessment: 1. T achycardia, unspecified - R00.0 Plan: * Treatment: * true * Date: Generated for Printi ng/Faxing/eTransmitting on: 1 04/29/2024 08:10 AM EST
--- NOTE | ~2025-02-26 | NM_ITS ---
EXAMINATION: NM BILIARY TRACT CLINICAL INFORMATION: Nausea and vomiting with elevated fasting glucose, cholelithiasis COMPARISON: 05/01/2024 CT abdomen pelvis Radioparhmaceutical: 5mCi technetium 99m labeled mebrofenin Other medications: 1.6mcg CCK infused IV over 30 minutes , one hour post injection of mebrofenin (a.k.a. Choletec) TECHNIQUE: Hepatobiliary scintigraphy was performed after the intravenous administration of technetium 99m labeled Choletec. Imaging was performed every 2 minutes for 60 minutes after which, CCK was infused IV over 30 minutes with imaging continuing for an additional 30minutes. Ejection fraction curve was generated with a region of interest placed over the gallbladder. FINDINGS: After Choletech injection, there is prompt uptake of radiotracer by the liver. Intrahepatic biliary filling was visible within 8 minutes and gallbladder filling was visible within 12minutes. Small bowel filling was noted within 16minutes. After CCK infusion, ejection fraction measured 69%. NM/NM hepatobiliary w pharm IMPRESSION: Within normal limits. Electronically signed by: Andrew Chinchilla MD 02/26/2025 10:54 AM EST
--- OUTSIDE RECORDS SUMMARY | 2025-02-26 08:09 | XMS_ITS | Encounter Summary ---
Author Organization [facility] Address [address] [place] [address] Phone Care Team Providers Care Qualified Craft Worker Electrician Name Role Phone Esme Claudio MD Unavailable [phone] Roseann Lopez Primary Care Provider [phone] sEme Claudio MD Unavailable [phone] Encounter Details Date Type Department Care Team (Late st Contact Info) Description 12/10/2022 Procedure Pass [facility], [facility] [address] [place] [address] Social History Tobacco Use Types Packs/Day Years [...] on filedocumented in this encounter Care Teams Qualified Craft Worker Electrician Relationship Specialty Start Date End Date Roseann Lopez PA [address] [place] [address] [address] [place] [address] [email or web address] PCP - General Unknown Provider Specialty 12/15/21 Esme Claudio MD [address] [place] [address] [email or web address] Historical LMR Provider 12/24/16 Esme Claudio MD [address] [place] [address] [email or web address] Insurance Assigned Provider 06/15/23 11/16/23 documented as of this encounter Additional Source Comments The information contained in this document represents components of the legal health record. It is not the complete legal health record.[facility]
--- OUTSIDE RECORDS SUMMARY | 2025-02-26 08:10 | XMS_ITS | Encounter Summary ---
Author Organization [facility] Address [address] [place] [address] Phone Care Team Providers Care Propellant Charge Loader Name Role Phone Tiffanie Crow MD Unavailable Destin Freed MD Unavailable Alisia Velasquez MD Unavailable Presley Bhandari MD Unavailable Ana Lilia Mclain-C Unavailable Esme Claudio MD Unavailable Neeraj Win MD Unavailable Esme Aaron MD Unavailable [phone] Jsoe Carlos Katz MD Unavailable Esme Claudio MD Primary Care Provider + Esme Claudio MD Unavailable Cullen Corrigan MD Unavailable Roseann Lopez Primary Care Provider [phone] Cullen Corrigan MD Unavailable Esme Claudio MD Unavailable [phone] Encounter Details Date Type Department Care Team (Late st Contact Info) Description 07/04/2020 Ancillary Orders [facility],Outside Imaging [address] [place], [place] [id number] System, Provider Not In, [place] [address] Social History Tobacco Use Types Packs/Day Years [...] on filedocumented in this encounter Care Teams Propellant Charge Loader Relationship Specialty Start Date End Date Esme Claudio MD [address] [place] [address] [email or web address] PCP - General Family Medicine 02/08/17 12/14/21 Roseann Lopez PA [address] [place] [address] [address] [place] [address] [email or web address] PCP - General Unknown Provider Specialty 12/15/21 Tiffanie Crow MD [address] [place] [address] [address] [place] [address] Historical LMR Provider 12/24/16 2 Destin Freed MD [address] [place] [address] [email or web address] Historical LMR Provider 12/24/16 03/18/21 Alisia Velasquez MD [address] [place] [address], [address] [place] [address] Historical LMR Provider 12/24/16 Presley Bhandari MD [address] [place] [address] Historical LMR Provider 12/24/16 Ana Lilia Mclain PA-C [address] [place] [address] Orthopedics & Sports [facility], [place] [address] Historical LMR Provider 12/24/16 03/18/21 Esme Claudio MD [address] [place] [address] Historical LMR Provider 12/24/16 Neeraj Win MD [address] [facility], [address] [address] Historical LMR Provider 12/24/16 03/18/21 Esme Aaron MD [address] [place] [address] Historical LMR Provider 12/24/16 2 Jose Carlos Katz MD [address] [place] [address] Orthopedics Sports [facility], [place] [address] Historical LMR Provider 12/24/16 2 Esme Claudio MD [address] [place] [address] [email or web address] Insurance Assigned Provider 07/12/18 10/15/20 Cullen Corrigan MD [address] [place] [address] [email or web address] Insurance Assigned Provider 10/15/20 06/17/21 Cullen Corrigan MD [address] [place] [address] [email or web address] Insurance Assigned Provider 07/14/22 09/15/22 Esme Claudio MD [address] [place] [address] [email or web address] Insurance Assigned Provider 06/15/23 11/16/23 documented as of this encounter Additional Source Comments The information contained in this document represents components of the legal health record. It is not the complete legal health record.[facility]
--- OUTSIDE RECORDS SUMMARY | 2025-02-26 08:10 | XMS_ITS | Encounter Summary ---
Author Organization [facility], Address [address] [place] [address] Phone Care Team Providers Care Stereo Equipment Installer Name Role Phone Autsin Rios PA-C Primary Care Provider [phone] Encounter Details Date Type Department Care Team (Late st Contact Info) Description 06/23/2024 Documentation Only [facility], [address] [place] [address] Lisbeth Avilez [address] [place] [address] Social History Tobacco Use Types Packs/Day [...] on filedocumented in this encounter Care Teams Stereo Equipment Installer Relationship Specialty Start Date End Date Austin Rios PA-C [address] [place] [address] PCP - General Physician Energy Analyst 02/27/24 documented as of this encounter
--- OUTSIDE RECORDS SUMMARY | 2025-02-26 08:10 | XMS_ITS | Encounter Summary ---
Author Organization [facility] Address [address] [place] [address] Phone Care Team Providers Care Staff Physical Therapist Name Role Phone Esme Claudio MD Unavailable Roseann Lopez Primary Care Provider Esme Claudio MD Unavailable [phone] Encounter Details Date Type Department Care Team (Late st Contact Info) Description 01/09/2023 Ancillary Orders [facility], X-Ray - [address] [place] [address] Roseann Lopez PA [address] [place] [address] [email or web address] Vomiting, unspecified vomiting type, unspecified whether nausea [...] present documented in this encounter Care Teams Staff Physical Therapist Relationship Specialty Start Date End Date Roseann Lopez PA [address] [place] [address] [email or web address] PCP - General Unknown Provider Specialty 12/15/21 Esme Claudio MD [address] [place] [address] [email or web address] Historical LMR Provider 12/24/16 Esme Claudio MD [address] [place] [address] [email or web address] Insurance Assigned Provider 06/15/23 11/16/23 documented as of this encounter Additional Source Comments The information contained in this document represents components of the legal health record. It is not the complete legal health record.[facility]
--- OUTSIDE RECORDS SUMMARY | 2025-02-26 08:10 | XMS_ITS | Encounter Summary ---
Author Organization [facility] Address [address] [facility] [address] [place] [address] Phone Care Team Providers Care Field Director Name Role Phone Esme Claudio MD Unavailable Roseann Lopez Primary Care Provider [phone] Encounter Details Date Type Department Care Team (Latest Contact Info) Description 03/20/2024 Transcribe Orders Virtual Department [address] [place] [address] Remberto Fletcher MD [address] [facility] [address] [place] [address] [email or web address] Essential hypertension (Primary Dx) Social History Tobacco [...] hypertension documented in this encounter Care Teams Field Director Relationship Specialty Start Date End Date Roseann Lopez PA [address] [place] [address] [address] [place] [address] [email or web address] PCP - General Unknown Provider Specialty 12/15/21 Esme Claudio MD [address] [place] [address] [email or web address] Historical LMR Provider 12/24/16 documented as of this encounter Additional Source Comments The information contained in this document represents components of the legal health record. It is not the complete legal health record.[facility]
--- OUTSIDE RECORDS SUMMARY | 2025-02-26 08:10 | XMS_ITS | Encounter Summary ---
Author Organization [facility], Address [address] [place] [address] Phone Care Team Providers Care Telemetry Tech Name Role Phone Austin Rios PA-C Primary Care Provider [phone] Encounter Details Date Type Department Care Team (Late st Contact Info) Description 04/06/2024 Documentation Only [facility], [address] [place] [address] Lisbeth Avilez [address] [place] [address] Social History Tobacco Use Types [...] on filedocumented in this encounter Care Teams Telemetry Tech Relationship Specialty Start Date End Date Austin Rios PA-C [address] [place] [address] PCP - General Physician Barrel Assembler 02/27/24 documented as of this encounter
--- OUTSIDE RECORDS SUMMARY | 2025-02-26 08:10 | XMS_ITS | Encounter Summary ---
Author Organization [facility], Address [address] [place] [address] Phone Care Team Providers Care Optical Laboratory Mechanic Name Role Phone Austin Rios PA-C Primary Care Provider [phone] Encounter Details Date Type Department Care Team (Late st Contact Info) Description 06/07/2022 Documentation Only [facility], - [address] [phone] Roseann Lopez PA-C [address] [place] [phone] Social History Tobacco Use Types Packs/Day Years [...] on filedocumented in this encounter Care Teams Optical Laboratory Mechanic Relationship Specialty Start Date End Date Austin Rios PA-C [address] [place] [address] PCP - General Physician Locks Tender 02/27/24 documented as of this encounter
--- OUTSIDE RECORDS SUMMARY | 2025-02-26 08:10 | XMS_ITS | Encounter Summary ---
Author Organization [facility] Address [address] [place] [address] Phone Care Team Providers Care Pressurised Container Filler Name Role Phone Tiffanie Crow MD Unavailable Destin Freed MD Unavailable Alisia Velasquez MD Unavailable Presley Bhandari MD Unavailable Ana Lilia Mclain-C Unavailable Esme Claudio MD Unavailable Neeraj Win MD Unavailable Esme Aaron MD Unavailable [phone] Jose Carlos Katz MD Unavailable Esme Claudio MD Primary Care Provider + Esme Claudio MD Unavailable Cullen Corrigan MD Unavailable Roseann Lopez Primary Care Provider [phone] Cullen Corrigan MD Unavailable Esme Claudio MD Unavailable [phone] Encounter Details Date Type Department Care Team (Late st Contact Info) Description 06/22/2020 Transcribe Orders [facility] Department [address] [place], [place] [phone] Esme Claudio MD [address] [place] [address] [email or web address] Breast screening (Primary Dx) Social History [...] unspecified documented in this encounter Care Teams Pressurised Container Filler Relationship Specialty Start Date End Date Esme Claudio MD [address] [place] [address] [email or web address] PCP - General Family Medicine 02/08/17 12/14/21 Roseann Lopez PA [address] [place] [address] [address] [place] [address] [email or web address] PCP - General Unknown Provider Specialty 12/15/21 Tiffanie Crow MD [address] [place] [address] 3 [place] [address] Historical LMR Provider 12/24/16 2 Destin Freed MD [address] [place] [address] [email or web address] Historical LMR Provider 12/24/16 03/18/21 Alisia Velasquez MD [address] [facility], 2nd [place] [address] [email or web address] Historical LMR Provider 12/24/16 Presley Bhandari MD [address] [place] [address] Historical LMR Provider 12/24/16 Ana Lilia Mclain PA-C [address] [place], [place] [address]s & Sports [facility] [place] [facility] [place] [place] [address] Historical LMR Provider 12/24/16 03/18/21 Esme Claudio MD [address] [place] [address] Historical LMR Provider 12/24/16 Neeraj Win MD [address] [place] [address] [email or web address] Historical LMR Provider 12/24/16 03/18/21 Esme Aaron MD [address] [place] [phone] Historical LMR Provider 12/24/16 2 Jose Carlos Katz MD [address] [place] [address] Orthopedics & Sports [facility] [place] [facility], [place] [address] [email or web address] Historical LMR Provider 12/24/16 2 Esme Claudio MD [address] [place] [address] Insurance Assigned Provider 07/12/18 10/15/20 Cullen Corrigan MD [address] [place] [address] Insurance Assigned Provider 10/15/20 06/17/21 Cullen Corrigan MD [address] [place] [address] [email or web address] Insurance Assigned Provider 07/14/22 09/15/22 Esme Claudio MD [address] [place] [address] [email or web address] Insurance Assigned Provider 06/15/23 11/16/23 documented as of this encounter Additional Source Comments The information contained in this document represents components of the legal health record. It is not the complete legal health record.[facility]
--- OUTSIDE RECORDS SUMMARY | 2025-02-26 08:10 | XMS_ITS | Encounter Summary ---
Author Organization [facility] Address [address] [place] [address] Phone Care Team Providers Care Patient Biller Name Role Phone Tiffanie Crow MD Unavailable Destin Freed MD Unavailable Alisia Velasquez MD Unavailable Presley Bhandari MD Unavailable Ana Lilia Mclain-C Unavailable Esme Claudio MD Unavailable Neeraj Win MD Unavailable Esme Aaron MD Unavailable [phone] Jose Carlos Katz MD Unavailable Esme Claudio MD Primary Care Provider + Esme Claudio MD Unavailable Cullen Corrigan MD Unavailable Roseann Lopez Primary Care Provider [phone] Cullen Corrigan MD Unavailable Esme Claudio MD Unavailable [phone] Encounter Details Date Type Department Care Team (Late st Contact Info) Description 06/22/2020 Procedure Pass [facility] - [address] [place] [address] Social History Tobacco Use Types Packs/Day Years [...] on filedocumented in this encounter Care Teams Patient Biller Relationship Specialty Start Date End Date Esme Claudio MD [address] [place] [address] [email or web address] PCP - General Family Medicine 02/08/17 12/14/21 Roseann Lopez PA [address] [place] [address] [address] [place] [address] [email or web address] PCP - General Unknown Provider Specialty 12/15/21 Tiffanie Crow MD [address] [facility] 3 [place] [address] Historical LMR Provider 12/24/16 2 Destin Freed MD [address] [place] [address] [email or web address] Historical LMR Provider 12/24/16 03/18/21 Alisia Velasquez MD 15 [facility], 2nd [place] [address] [email or web address] Historical LMR Provider 12/24/16 Presley Bhandari MD [address] [place] [address] Historical LMR Provider 12/24/16 Ana Lilia Mclain PA-C [address] [place] [address] Orthopedics & Sports [facility], [place] [address] Historical LMR Provider 12/24/16 03/18/21 Esme Claudio MD [address] [place] [address] Historical LMR Provider 12/24/16 Neeraj Win MD [address] [place] [address] Historical LMR Provider 12/24/16 03/18/21 Esme Aaron MD [address] [place] [address] Historical LMR Provider 12/24/16 2 Jose Carlos Katz MD [address] [place] [address] Orthopedics Sports [facility], [place] [address] Historical LMR Provider 12/24/16 2 Esme Claudio MD [address] [place] [address] Insurance Assigned Provider 07/12/18 10/15/20 Cullen Corrigan MD [address] [place] [address] Insurance Assigned Provider 10/15/20 06/17/21 Cullen Corrigan MD [address] [place] [address] [email or web address] Insurance Assigned Provider 07/14/22 09/15/22 Esme Claudio MD [address] [place] [address] [email or web address] Insurance Assigned Provider 06/15/23 11/16/23 documented as of this encounter Additional Source Comments The information contained in this document represents components of the legal health record. It is not the complete legal health record.[facility]
--- OUTSIDE RECORDS SUMMARY | 2025-02-26 08:10 | XMS_ITS | Encounter Summary ---
Author Organization [facility] Address [address] [place] [address] Phone Care Team Providers Care Paint Mixer Name Role Phone Esme Claudio MD Unavailable [phone] Roseann Lopez Primary Care Provider [phone] Esme Claudio MD Unavailable [phone] Encounter Details Date Type Department Care Team (Late st Contact Info) Description 12/14/2022 Procedure Pass [facility] - [address] [place] [address] Social History Tobacco Use Types Packs/Day Years [...] filedocumented in this encounter Care Teams Paint Mixer Relationship Specialty Start Date End Date Roseann Lopez PA [address] [place] [address] [address] [place] [address] [email or web address] PCP - General Unknown Provider Specialty 12/15/21 Esme Claudio MD [address] [place] [address] [email or web address] Historical LMR Provider 12/24/16 Esme Claudio MD [address] [place] [address] [email or web address] Insurance Assigned Provider 06/15/23 11/16/23 documented as of this encounter Additional Source Comments The information contained in this document represents components of the legal health record. It is not the complete legal health record.[facility]
--- OUTSIDE RECORDS SUMMARY | 2025-02-26 08:10 | XMS_ITS | Encounter Summary ---
Author Organization [facility] Address [address] [place] [address] Phone Care Team Providers Care Maintenance Mechanic Elevators Name Role Phone Esme Claudio MD Unavailable Roseann Lopez Primary Care Provider Esme Claudio MD Unavailable Encounter Details Date Type Department Care Team (Late st Contact Info) Description 12/14/2022 Transcribe Orders Virtual Department 30 [place] [address] Roseann Lopez PA [address] [place] [address] [email or web address] Breast screening (Primary Dx) Social History [...] unspecified documented in this encounter Care Teams Maintenance Mechanic Elevators Relationship Specialty Start Date End Date Roseann Lopez PA [address] [place] [address] [address] [place] [address] [email or web address] PCP - General Unknown Provider Specialty 12/15/21 Esme Claudio MD [address] [place] [address] [email or web address] Historical LMR Provider 12/24/16 Esme Claudio MD [address] [place] [address] [email or web address] Insurance Assigned Provider 06/15/23 11/16/23 documented as of this encounter Additional Source Comments The information contained in this document represents components of the legal health record. It is not the complete legal health record.[facility]
--- OUTSIDE RECORDS SUMMARY | 2025-02-26 08:10 | XMS_ITS | Encounter Summary ---
Author Organization [facility], Address [address] [place] [address] Phone Care Team Providers Care Clinical Professor Name Role Phone Austin Rios PA-C Primary Care Provider [phone] Encounter Details Date Type Department Care Team (Late st Contact Info) Description 06/04/2022 Documentation Only [facility], - John [address] [phone] Roseann Lopez PA-C [address] [place] [phone] Social History Tobacco Use Types Packs/Day Years [...] on filedocumented in this encounter Care Teams Clinical Professor Relationship Specialty Start Date End Date Austin Rios PA-C [address] [place] [address] PCP - General Physician Superintendent Stevedoring 02/27/24 documented as of this encounter
--- OUTSIDE RECORDS SUMMARY | 2025-02-26 08:10 | XMS_ITS | Encounter Summary ---
Author Organization [facility], Address [address] [place] [address] Phone Care Team Providers Care Bioassayist Name Role Phone Austin Rios PA-C Primary Care Provider [phone] Encounter Details Date Type Department Care Team (Late st Contact Info) Description 04/10/2024 Documentation Only [facility], [address] [place] [address] Lisbeth Avilez [address] [place] [address] Social History Tobacco Use Types [...] on filedocumented in this encounter Care Teams Bioassayist Relationship Specialty Start Date End Date Austin Rios PA-C [address] [place] [address] PCP - General Physician Etl Informatica Architect 02/27/24 documented as of this encounter
--- OUTSIDE RECORDS SUMMARY | 2025-02-26 08:10 | XMS_ITS | Encounter Summary ---
Author Organization [facility] Address [address] [place] [address] Phone Care Team Providers Care Customer Consulting Manager Name Role Phone Esme Claudio MD Unavailable Roseann Lopez Primary Care Provider Esme Claudio MD Unavailable [phone] Encounter Details Date Type Department Care Team (Late st Contact Info) Description 01/14/2023 Transcribe Orders Virtual Department 30 [place] [address] Roseann Lopez PA [address] [place] [address] [email or web address] Acute renal failure, unspecified acute renal failure [...] present documented in this encounter Care Teams Customer Consulting Manager Relationship Specialty Start Date End Date Roseann Lopez PA [address] [place] [address] [address] [place] [address] [email or web address] PCP - General Unknown Provider Specialty 12/15/21 Esme Clauido MD [address] [place] [address] Historical LMR Provider 12/24/16 Esme Claudio MD [address] [place] [address] Insurance Assigned Provider 06/15/23 11/16/23 documented as of this encounter Additional Source Comments The information contained in this document represents components of the legal health record. It is not the complete legal health record.[facility]
--- OUTSIDE RECORDS SUMMARY | 2025-02-26 08:10 | XMS_ITS | Encounter Summary ---
Author Organization [facility] Address [address] [place] [address] Phone Care Team Providers Care Bag Bleacher Name Role Phone Esme Claudio MD Unavailable Esme Claudio MD Primary Care Provider + Cullen Corrigan MD Unavailable Roseann Lopez Primary Care Provider Cullen Corrigan MD Unavailable Esme Claudio MD Unavailable [phone] Encounter Details Date Type Department Care Team (Late st Contact Info) Description 05/11/2021 Transcribe Orders Virtual Department 30 [place] [address] Esme Claudio MD [address] [place] [address] Breast screening (Primary Dx) Social History Tobacco [...] unspecified documented in this encounter Care Teams Bag Bleacher Relationship Specialty Start Date End Date Esme Claudio MD [address] [place] [address] PCP - General Family Medicine 02/08/17 12/14/21 Roseann Lopez PA [address] [place] [address] [address] [place] [address] [email or web address] PCP - General Unknown Provider Specialty 12/15/21 Esme Claudio MD [address] [place] [address] [email or web address] Historical LMR Provider 12/24/16 Cullen Corrigan MD [address] [place] [address] Insurance Assigned Provider 10/15/20 06/17/21 Cullen Corrigan MD [address] [place] [address] Insurance Assigned Provider 07/14/22 09/15/22 Esme Claudio MD [address] [place] [address] Insurance Assigned Provider 06/15/23 11/16/23 documented as of this encounter Additional Source Comments The information contained in this document represents components of the legal health record. It is not the complete legal health record.[facility]
--- OUTSIDE RECORDS SUMMARY | 2025-02-26 08:10 | XMS_ITS | Encounter Summary ---
Author Organization [facility] Address [address] [place] [address] Phone Care Team Providers Care Receiving Team Member Name Role Phone Tiffanie Crow MD Unavailable Destin Freed MD Unavailable Alisia Velasquez MD Unavailable Presley Bhandari MD Unavailable Ana Lilia Mclain-C Unavailable Esme Claudio MD Unavailable Neeraj Win MD Unavailable Esme Aaron MD Unavailable [phone] Jose Carlos Katz MD Unavailable Esme Claudio MD Primary Care Provider + Esme Claudio MD Unavailable Cullen Corrigan MD Unavailable Roseann Lopez Primary Care Provider [phone] Cullen Corrigan MD Unavailable Esme Claudio MD Unavailable Encounter Details Date Type Department Care Team (Late st Contact Info) Description 06/19/2018 Ancillary Orders [facility] Department 30 [place] [address] Roseann Lopez PA [address] [place] [address] [email or web address] Dyspnea, unspecified type; Bloating; Family history [...] AM EDT) Max BP Systolic 170 mmHg [facility] Max BP Diastolic 88 mmHg [facility] Max HR 113 BPM [facility] Resting HR 90 BPM [facility] Resting BP Systolic 140 mmHg [facility] Resting BP Diastolic 88 mmHg [facility] Peak METS 1.0 METS [facility] Peak HR 110 BPM [facility] Anatomical Region Laterality Modality Heart Other [...] EKG reviewed with Dr. Amaya. Christa Torres, MERCHANDISE EXECUTIVE, MPH . Roseann BERMAN CV [place] CARDIAC [...] documented as of this encounter Care Teams Receiving Team Member Relationship Specialty Start Date End Date Esme Claudio MD [address] [place] [address] [email or web address] PCP - General Family Medicine 02/08/17 12/14/21 Roseann Lopez PA [address] [place] [address] [address] [place] [address] [email or web address] PCP - General Unknown Provider Specialty 12/15/21 Tiffanie Crow MD [address] [place] [address] Historical LMR Provider 12/24/16 2 Destin Freed MD [address] [place] [address] [email or web address] Historical LMR Provider 12/24/16 03/18/21 Alisia Velasquez MD [address], 2nd [place] [address] [email or web address] Historical LMR Provider 12/24/16 Presley Bhandari MD [address] [place] [address] Historical LMR Provider 12/24/16 Ana Lilia Mclain PA-C [address] [place] [address] Orth[address] [facility], [place] [address] [email or web address] Historical LMR Provider 12/24/16 03/18/21 Esme Claudio MD [address] [place] [address] Historical LMR Provider 12/24/16 Neeraj Win MD [address] [place] [address] [email or web address] Historical LMR Provider 12/24/16 03/18/21 Esme Aaron MD [address] [place] [address] Historical LMR Provider 12/24/16 2 Jose Carlos Katz MD [address] [place] [address] [address] [facility], [place] [address] [email or web address] Historical LMR Provider 12/24/16 2 Esme Claudio MD [address] [place] [address] [email or web address] Insurance Assigned Provider 07/12/18 10/15/20 Cullen Corrigan MD [address] [place] [address] [email or web address] Insurance Assigned Provider 10/15/20 06/17/21 Cullen Corrigan MD [address] [place] [address] Insurance Assigned Provider 07/14/22 09/15/22 Esme Claudio MD [address] [place] [address] [email or web address] Insurance Assigned Provider 06/15/23 11/16/23 documented as of this encounter Additional Source Comments The information contained in this document represents components of the legal health record. It is not the complete legal health record.[facility]
--- OUTSIDE RECORDS SUMMARY | 2025-02-26 08:10 | XMS_ITS | Encounter Summary ---
Author Organization [facility] Address [address] [place] [address] Phone Care Team Providers Care Lime Mixer Tender Name Role Phone Esme Claudio MD Unavailable [phone] Esme Claudio MD Primary Care Provider + Cullen Corrigan MD Unavailable [phone] Roseann Lopez Primary Care Provider Cullen Corrigan MD Unavailable Esme Claudio MD Unavailable [phone] Encounter Details Date Type Department Care Team (Late st Contact Info) Description 05/11/2021 Procedure Pass [facility] - [address] [place] [address] Social History Tobacco Use Types Packs/Day Years [...] on filedocumented in this encounter Care Teams Lime Mixer Tender Relationship Specialty Start Date End Date Esme Claudio MD [address] [place] [address] [place] [address] PCP - General Family Medicine 02/08/17 12/14/21 Roseann Lopez PA [address] [place] [address] [email or web address] PCP - General Unknown Provider Specialty 12/15/21 Esme Claudio MD [address] [place] [address] Historical LMR Provider 12/24/16 Cullen Corrigan MD [address] [place] [address] Insurance Assigned Provider 10/15/20 06/17/21 Cullen Corrigan MD [address] [place] [address] Insurance Assigned Provider 07/14/22 09/15/22 Esme Claudio MD [address] [place] [address] Insurance Assigned Provider 06/15/23 11/16/23 documented as of this encounter Additional Source Comments The information contained in this document represents components of the legal health record. It is not the complete legal health record.[facility]
--- OUTSIDE RECORDS SUMMARY | 2025-02-26 08:10 | XMS_ITS | Encounter Summary ---
Author Organization [facility], Address [address] [place] [address] Phone Care Team Providers Care Stretch Press Operator Name Role Phone Austin Rios PA-C Primary Care Provider [phone] Encounter Details Date Type Department Care Team (Late st Contact Info) Description 01/15/2024 Documentation Only [facility], [address] [place] [address] [place], [place] [address] [place] [address] Social History Tobacco Use Types [...] on filedocumented in this encounter Care Teams Stretch Press Operator Relationship Specialty Start Date End Date Austin Rios PA-C [address] [place] [address] PCP - General Physician Stereo Operator 02/27/24 documented as of this encounter
--- OUTSIDE RECORDS SUMMARY | 2025-02-26 08:11 | XMS_ITS | Encounter Summary ---
Author Organization [facility] Address [address] [place] [address] Phone Care Team Providers Care Special Education Teacher Name Role Phone Esme Claudio MD Unavailable [phone] Roseann Lopez Primary Care Provider [phone] Esme Claudio MD Unavailable [phone] Reason for Referral * MRI/CAT Scan - Closed Specialty Diagnoses / Procedures Referred By Contac t Referred To Contact Radiology Diagnoses Abdominal pain, generalized Procedures MRI Enterography Abdomen/Pelvis MRI PELVIS (GI/) CHG MRI, ABDOMEN, COMBO CHG MRI, ABDOMEN (MRI) CHG MRI, PELVIS, COMBO CHG MRI, PELVIS, W/O CONTRAST Concha Stoll PA [address] [place] [address] Phone: tel: fax: Referral ID Status Reason Start Date Expiration Date Visits Re quested Visits Authorized [id number] Closed 02/18/2023 03/20/2023 1 1 Encounter Details Date Type Department Care Team (Latest Contact Info) Description 12/10/2022 Transcribe Orders Virtual Department [address] [place] [address] Concha Stoll PA [address] [place] [phone] Abdominal pain, generalized (Primary Dx) Social History [...] bowel. COMPARISON: CT ABDOMEN/PELVIS (KIDNEY STONE) WITHOUT [id number] FINDINGS: BOWEL: No abnormal bowel wall thickening, [...] generalized documented in this encounter Care Teams Special Education Teacher Relationship Specialty Start Date End Date Roseann Lopez PA [address] [place] [address] [email or web address] PCP - General Unknown Provider Specialty 12/15/21 Esme Claudio MD [address] [place] [address] [email or web address] Historical LMR Provider 12/24/16 Esme Claudio MD [address] [place] [address] [email or web address] Insurance Assigned Provider 06/15/23 11/16/23 documented as of this encounter Additional Source Comments The information contained in this document represents components of the legal health record. It is not the complete legal health record.[facility]
--- OUTSIDE RECORDS SUMMARY | 2025-02-26 08:11 | XMS_ITS | Encounter Summary ---
Author Organization [facility] Address [address] [place] [address] Phone Care Team Providers Care Commercial Artist Name Role Phone Esme Claudio MD Unavailable [phone] Roseann Lopez Primary Care Provider Esme Claudio MD Unavailable [phone] Encounter Details Date Type Department Care Team (Late st Contact Info) Description 12/14/2022 Transcribe Orders [facility] [place] [address] [place] [address] Roseann Lopez PA [address] [place] [address] [email or web address] Stomach ache; Elevated C-reactive protein [...] ache Elevated C-reactive protein (CRP) C-REACTIVE PROTEIN (CRP) Routine 12/14/2022 10:56 AM EDT Stomach ache [...] EDT) PHOSPHORUS 3.3 2.7 - 4.5 mg/dL [facility] Blood 12/14/2022 10:5 6 AM EDT 12/14/2022 10:59 AM EDT us Concha BERMAN LAB BLOOD BKR ORDERABLES Fi nal Result [facility] [address] [place] [address] * Parathyroid hormone (PTH) (12/14/2022 10:56 AM EDT) PARATHYROID HORMONE 34 15 - 65 pg/mL [facility] Blood 12/14/2022 10:5 6 AM EDT 12/14/2022 11:00 AM EDT us Concha Stoll PA LAB BLOOD BKR ORDERABLES Fi nal Result Performing Organization Address City/[facility]/ZIP Co de Phone Number [address] [address] * (ABNORMAL) C-Reactive Protein (12/14/2022 10:56 AM EDT) C REACTIVE PROTEIN 15.8(H) 0.0 - 4.0 mg/L [facility] Blood 12/14/2022 10:5 6 AM EDT 12/14/2022 10:59 AM EDT us Roseann BERMAN LAB BLOOD BKR ORDERABLES Fi nal Result Performing Organization Address [facility] Co de Phone Number [address] [address] * Antinuclear antibody (ROSS) (12/14/2022 10:56 AM EDT) ROSS SCREEN ON HEP 2 Negative Negative [facility] Blood 12/14/2022 10:5 6 AM EDT 12/14/2022 10:59 AM EDT us Roseann BERMAN LAB BLOOD BKR ORDERABLES Fi nal Result Performing Organization Address City/[facility]/ZIP Co de Phone Number [address] [address] * Sedimentation rate (ESR) (12/14/2022 10:56 AM EDT) ESR 16 0 - 30 mm/h [facility] Blood 12/14/2022 10:5 6 AM EDT 12/14/2022 10:59 AM EDT us Roseann BERMAN LAB BLOOD BKR ORDERABLES Fi nal Result Performing Organization Address City/[facility]/ZIP Co de Phone Number [address] [address] * (ABNORMAL) Ferritin (12/14/2022 10:56 AM EDT) FERRITIN 196(H) 13 - 150 ug/L [facility] Blood 12/14/2022 10:5 6 AM EDT 12/14/2022 10:59 AM EDT us Roseann BERMAN LAB BLOOD BKR ORDERABLES Fi nal Result [facility] [address] [place] [address] documented in this encounter Visit Diagnoses Diagnosis Stomach ache Dyspepsia and other specified disorders of function of stomach Elevated C-reactive protein (CRP) Low phosphate levels Disorders of phosphorus metabolism documented in this encounter Care Teams Commercial Artist Relationship Specialty Start Date End Date Roseann Lopez PA [address] [place] [address] [address] [place] [address] [email or web address] PCP - General Unknown Provider Specialty 12/15/21 Esme Claudio MD [address] [place] [address] [email or web address] Historical LMR Provider 12/24/16 Esme Claudio MD [address] [place] [address] [email or web address] Insurance Assigned Provider 06/15/23 11/16/23 documented as of this encounter Additional Source Comments The information contained in this document represents components of the legal health record. It is not the complete legal health record.[facility]
--- OUTSIDE RECORDS SUMMARY | 2025-02-26 08:11 | XMS_ITS | Encounter Summary ---
Author Organization [facility] Address [address] [place] [address] Phone Care Team Providers Care Counter Dish Carrier Name Role Phone Tiffanie Crow MD Unavailable [...] Multiple Roseann Lopez PA Phone: tel: fax: mailto:[email or web address] Referral ID Status Reason Start Date Expiration Date Visits Re quested Visits Authorized [id number] Closed 06/12/2018 06/12/2019 1 1 Encounter Details Date Type Department Care Team (Late st Contact Info) Description 06/12/2018 Transcribe Orders Virtual Department [address] [place] [address] Roseann Lopez PA [address] [place] [address] Dyspnea, unspecified type (Primary Dx); Bloating; Family [...] documented as of this encounter Care Teams Counter Dish Carrier Relationship Specialty Start Date End Date Esme Claudio MD [address] [place] [address] PCP - General Family Medicine 02/08/17 12/14/21 Roseann Lopez PA [address] [place] [address] [address] [place] [address] [email or web address] PCP - General Unknown Provider Specialty 12/15/21 Tiffanie Crow MD [address] [place] [address] 3 [place] [address] Historical LMR Provider 12/24/16 2 Destin Freed MD [address] [place] [address] [email or web address] Historical LMR Provider 12/24/16 03/18/21 Alisia Velasquez MD [address] [place] [address], [address] [place] [address] [email or web address] Historical LMR Provider 12/24/16 Presley Bhandari MD [address] [place] [address] Historical LMR Provider 12/24/16 Ana Lilia Mclain PA-C [address] [place] [address] [facility], [place] [address] [email or web address] Historical LMR Provider 12/24/16 03/18/21 Esme Claudio MD [address] [place] [address] [email or web address] Historical LMR Provider 12/24/16 Neeraj Win MD [address] [address] Historical LMR Provider 12/24/16 03/18/21 Esme Aaron MD [address] [place] [phone] Historical LMR Provider 12/24/16 2 Jose Carlos Katz MD [address] [place] [address] [facility], [place] [address] Historical LMR Provider 12/24/16 2 Esme Claudio MD [address] [place] [address] Insurance Assigned Provider 07/12/18 10/15/20 Cullen Corrigan MD [address] [place] [address] Insurance Assigned Provider 10/15/20 06/17/21 Cullen Corrigan MD [address] [place] [address] Insurance Assigned Provider 07/14/22 09/15/22 Esme Claudio MD [address] [place] [address] Insurance Assigned Provider 06/15/23 11/16/23 documented as of this encounter Additional Source Comments The information contained in this document represents components of the legal health record. It is not the complete legal health record.[facility]
--- OUTSIDE RECORDS SUMMARY | 2025-02-26 08:11 | XMS_ITS | Encounter Summary ---
Author Organization [facility] Address [address] [place] [address] Phone Care Team Providers Care Communications Officer Name Role Phone Tiffanie Crow MD Unavailable [phone] Destin Freed MD Unavailable Alisia Velasquez MD Unavailable [phone] Presley Bhandari MD Unavailable [phone] Ana Lilia Mclain-C Unavailable [phone] Esme Claudio MD Unavailable [phone] Neeraj Win MD Unavailable [phone] Esme Aaron MD Unavailable [phone] Jose Carlos Katz MD Unavailable [phone] Esme Claudio MD Primary Care Provider + Esme Claudio MD Unavailable [phone] Cullen Corrigan MD Unavailable [phone] Roseann Lopez Primary Care Provider [phone] Cullen Corrigan MD Unavailable + [phone] Esme Claudio MD Unavailable [phone] Reason for Referral * Physical Therapy (Routine) - Closed Specialty Diagnoses / Procedures Referred By Contac t Referred To Contact Physical Therapy Diagnoses Encounter for rehabilitation Mark Ferris MD Phone: tel: fax: mailto:[email or web address] [address] [place] [address] Phone: tel: Referral ID Status Reason Start Date Expiration Date Visits Re quested Visits Authorized [id number] Closed 02/21/2017 02/21/2018 1 1 Encounter Details Date Type Department Care Team (Latest Contact Info) Description 02/21/2017 Transcribe Orders [facility] [address] [place] [address] Mark Ferris MD [address] [place] [address] [email or web address] Encounter for rehabilitation (Primary Dx) Social History [...] Diagnoses Orde r Schedule Ambulatory referral to [facility] Physical Therapy Outpatient Referral Routine Encounter for rehabilitation Ordered: 02/21/2017 documented as of this encounter Visit Diagnoses Diagnosis Encounter for rehabilitation- Primary documented in this encounter Additional Health Concerns Infection Onset Date Last Indicated Resolved Time CoV-Risk 06/26/2019 06/27/2019 07/11/2019 1:23 AM EDT documented as of this encounter Care Teams Communications Officer Relationship Specialty Start Date End Date Esme Claudio MD [address] [place] [address] PCP - General Family Medicine 02/08/17 12/14/21 Roseann Lopez PA [address] [place] [address] [email or web address] PCP - General Unknown Provider Specialty 12/15/21 Tiffanie Crow MD [address] [place] [address] 3 [place] [address] Historical LMR Provider 12/24/16 2 Destin Freed MD [address] [place] [address] [email or web address] Historical LMR Provider 12/24/16 03/18/21 Alisia Velasquez MD [address] [place] [address], 2nd [place] [address] [email or web address] Historical LMR Provider 12/24/16 Presley Bhandari MD [address] [place] [address] Historical LMR Provider 12/24/16 Ana Lilia Mclain PA-C [address] [place] [address] Orth[facility] Medicine, [place] [address] [email or web address] Historical LMR Provider 12/24/16 03/18/21 Esme Claudio MD [address] [place] [address] Historical LMR Provider 12/24/16 Neeraj Win MD [address] [facility], [address] [place] [address] Historical LMR Provider 12/24/16 03/18/21 Esme Aaron MD [address] [place] [address] Historical LMR Provider 12/24/16 2 Jose Carlos Katz MD [address] [place] [address] [facility], [place] [address] Historical LMR Provider 12/24/16 2 Esme Claudio MD [address] [place] [address] Insurance Assigned Provider 07/12/18 10/15/20 Cullen Corrigan MD [address] [place] [address] Insurance Assigned Provider 10/15/20 06/17/21 Cullen Corrigan MD [address] [place] [address] Insurance Assigned Provider 07/14/22 09/15/22 Esme Claudio MD [address] [place] [address] Insurance Assigned Provider 06/15/23 11/16/23 documented as of this encounter Additional Source Comments The information contained in this document represents components of the legal health record. It is not the complete legal health record.[facility]
--- OUTSIDE RECORDS SUMMARY | 2025-02-26 08:11 | XMS_ITS | Encounter Summary ---
Author Organization [facility] Address [address] [place] [address] Phone Care Team Providers Care Yacht Hand Name Role Phone Tiffanie Crow MD Unavailable Destin Freed MD Unavailable Alisia Velasquez MD Unavailable Presley Bhandari MD Unavailable Ana Lilia Mclain-C Unavailable Esme Claudio MD Unavailable Neeraj Win MD Unavailable Esme Aaron MD Unavailable [phone] Jose Carlos Katz MD Unavailable Esme Claudio MD Primary Care Provider + Esme Claudio MD Unavailable Cullen Corrigan MD Unavailable Roseann Lopez Primary Care Provider [phone] Cullen Corrigan MD Unavailable Esme Claudio MD Unavailable [phone] Encounter Details Date Type Department Care Team (Late st Contact Info) Description 09/08/2018 Ancillary Orders [facility] Department [address] [place], [place] [phone] Jennifer Cueto, SHIRA [address] [place] [address] Epigastric abdominal pain Social History Tobacco Use [...] structures. POS - [id number] us Jennifer Cueto OFFICE CHAIR ASSEMBLER IMG US ABDOMEN Final Re sult documented in this encounter Visit Diagnoses Diagnosis Epigastric abdominal pain Abdominal pain, epigastric Epigastric abdominal pain Abdominal pain, epigastric documented in this encounter Additional Health Concerns Infection Onset Date Last Indicated Resolved Time CoV-Risk 06/26/2019 06/27/2019 07/11/2019 1:23 AM EDT documented as of this encounter Care Teams Yacht Hand Relationship Specialty Start Date End Date Esme Claudio MD [address] [place] [address] [email or web address] PCP - General Family Medicine 02/08/17 12/14/21 Roseann Lopez PA [address] [place] [address] [address] [place] [address] [email or web address] PCP - General Unknown Provider Specialty 12/15/21 Tiffanie Crow MD [address] [place] [address] 3 [place] [address] Historical LMR Provider 12/24/16 2 Destin Freed MD [address] [place] [phone] [email or web address] Historical LMR Provider 12/24/16 03/18/21 Alisia Velasquez MD [address] [place] [address], [address] [place] [address] Historical LMR Provider 12/24/16 Presley Bhandari MD [address] [place] [address] Historical LMR Provider 12/24/16 Ana Lilia Mclain PA-C [address] [place] [address] Orthopedics [facility] Sports Medicine, [place] [address] Historical LMR Provider 12/24/16 03/18/21 Esme Claudio MD [address] [place] [address] Historical LMR Provider 12/24/16 Neeraj Win MD [address] [address] [email or web address] Historical LMR Provider 12/24/16 03/18/21 Esme Aaron MD [address] [address] Historical LMR Provider 12/24/16 2 Jose Carlos Katz MD [address] [place] [address] Orthopedics & Sports [facility], [place] [address] [email or web address] Historical LMR Provider 12/24/16 2 Esme Claudio MD [address] [place] [address] [email or web address] Insurance Assigned Provider 07/12/18 10/15/20 Cullen Corrigan MD [address] [place] [address] [email or web address] Insurance Assigned Provider 10/15/20 06/17/21 Cullen Corrigan MD [address] [place] [address] [email or web address] Insurance Assigned Provider 07/14/22 09/15/22 Esme Claudio MD [address] [place] [address] [email or web address] Insurance Assigned Provider 06/15/23 11/16/23 documented as of this encounter Additional Source Comments The information contained in this document represents components of the legal health record. It is not the complete legal health record.[facility]
--- OUTSIDE RECORDS SUMMARY | 2025-02-26 08:11 | XMS_ITS | Encounter Summary ---
Author Organization [facility] Address [address] [place] [address] Phone Care Team Providers Care Packing House Supervisor Name Role Phone Tiffanie Crow MD Unavailable Destin Freed MD Unavailable Alisia Velasquez MD Unavailable Presley Bhandari MD Unavailable Ana Lilia Mclain-C Unavailable Esme Claudio MD Unavailable Neeraj Win MD Unavailable Esme Aaron MD Unavailable [phone] Jose Carlos Katz MD Unavailable Esme Claudio MD Primary Care Provider + Esme Claudio MD Unavailable Cullen Corrigan MD Unavailable Roseann Lopez Primary Care Provider [phone] Cullen Corrigan MD Unavailable Esme Claudio MD Unavailable Encounter Details Date Type Department Care Team (Late st Contact Info) Description 06/11/2018 Transcribe Orders [facility] Department [address] [place], [place] [phone] Roseann Lopez PA [address] [place] [address] Dr [address] [place] [address] [email or web address] Dysphagia, unspecified type (Primary Dx) Social [...] documented as of this encounter Care Teams Packing House Supervisor Relationship Specialty Start Date End Date Esme Claudio MD [address] [place] [address] [email or web address] PCP - General Family Medicine 02/08/17 12/14/21 Roseann Lopez PA [address] [place] [address] Dr [address] [place] [address] [email or web address] PCP - General Unknown Provider Specialty 12/15/21 Tiffanie Crow MD [address] [place] [address] 3 [place] [address] Historical LMR Provider 12/24/16 2 Destin rFeed MD [address] [place] [address] [email or web address] Historical LMR Provider 12/24/16 03/18/21 Alisia Velasquez MD [address] [facility], 2nd [place] [address] [email or web address] Historical LMR Provider 12/24/16 Presley Bhandari MD [address] [place] [address] Historical LMR Provider 12/24/16 Ana Lilia Mclain PA-C [address] [place] [address] Orthopedics Sports [facility], [place] [address] [email or web address] Historical LMR Provider 12/24/16 03/18/21 Esme Claudio MD [address] [place] [address] [email or web address] Historical LMR Provider 12/24/16 Neeraj Win MD [address] [facility], [address] [place] [address] [email or web address] Historical LMR Provider 12/24/16 03/18/21 Esme Aaron MD [address] [address] Historical LMR Provider 12/24/16 2 Jose Carlos Katz MD [address] [place] [address] Orthopedics Sports [facility], [place] [address] [email or web address] Historical LMR Provider 12/24/16 2 Esme Claudio MD [address] [place] [address] [email or web address] Insurance Assigned Provider 07/12/18 10/15/20 Cullen Corrigan MD [address] [place] [address] [email or web address] Insurance Assigned Provider 10/15/20 06/17/21 Cullen Corrigan MD [address] [place] [address] Insurance Assigned Provider 07/14/22 09/15/22 Esme Claudio MD [address] [place] [address] [email or web address] Insurance Assigned Provider 06/15/23 11/16/23 documented as of this encounter Additional Source Comments The information contained in this document represents components of the legal health record. It is not the complete legal health record.[facility]
--- OUTSIDE RECORDS SUMMARY | 2025-02-26 08:11 | XMS_ITS | Encounter Summary ---
Author Organization [facility] Address [address] [place] [address] Phone Care Team Providers Care Silversmith Apprentice Name Role Phone Tiffanie Crow MD Unavailable Destin Freed MD Unavailable Alisia Velasquez MD Unavailable Presley Bhandari MD Unavailable Ana Lilia Mclain-C Unavailable Esme Claudio MD Unavailable Neeraj Win MD Unavailable Esme Aaron MD Unavailable [phone] Jose Carlos Katz MD Unavailable Esme Claudio MD Primary Care Provider + Esme Claudio MD Unavailable Cullen Corrigan MD Unavailable Roseann Lopez Primary Care Provider [phone] Cullen Corrigan MD Unavailable Esme Claudio MD Unavailable [phone] Encounter Details Date Type Department Care Team (Late st Contact Info) Description 09/10/2017 Ancillary Orders [facility] [place] - [address] [address] Katya Burnham PA-C 8[address] [facility] [place] [address] [email or web address] Asthma, unspecified asthma severity, unspecified whether complicated, [...] evidence of active cardiopulmonary disease. POS - [id number] Narrative 09/10/2017 5:05 PM EDT HISTORY: Cough, [...] evidence of active cardiopulmonary disease. POS - [id number] [facility] Tej SCHNEIDER IMG XR CHEST Final Result documented in [...] documented as of this encounter Care Teams Silversmith Apprentice Relationship Specialty Start Date End Date Esme Claudio MD [address] [place] [address] [email or web address] PCP - General Family Medicine 02/08/17 12/14/21 Roseann Lopez PA [address] [place] [address] [address] [place] [address] [email or web address] PCP - General Unknown Provider Specialty 12/15/21 Tiffanie Crow MD [address] [place] [address] 3 [place] [address] Historical LMR Provider 12/24/16 2 Destin Freed MD [address] [place] [address] [email or web address] Historical LMR Provider 12/24/16 03/18/21 Alisia Velasquez MD [address] [place] [address], 2nd [place] [address] Historical LMR Provider 12/24/16 Presley Bhandari MD [address] [place] [address] Historical LMR Provider 12/24/16 Ana Lilia Mclain PA-C [address] [place] [address] [facility], [place] [address] Historical LMR Provider 12/24/16 03/18/21 Esme Claudio MD [address] [place] [address] Historical LMR Provider 12/24/16 Neeraj Win MD [address] [address] Historical LMR Provider 12/24/16 03/18/21 Esme Aaron MD [address] [place] [address] Historical LMR Provider 12/24/16 2 Jose Carlos Katz MD [address] [place] [address] Orthopedics & Sports [facility], [place] [address] Historical LMR Provider 12/24/16 2 Esme Claudio MD [address] [place] [address] Insurance Assigned Provider 07/12/18 10/15/20 Cullen Corrigan MD [address] [place] [address] [email or web address] Insurance Assigned Provider 10/15/20 06/17/21 Cullen Corrigan MD [address] [place] [address] [email or web address] Insurance Assigned Provider 07/14/22 09/15/22 Esme Claudio MD [address] [place] [address] [email or web address] Insurance Assigned Provider 06/15/23 11/16/23 documented as of this encounter Additional Source Comments The information contained in this document represents components of the legal health record. It is not the complete legal health record.[facility]
--- OUTSIDE RECORDS SUMMARY | 2025-02-26 08:11 | XMS_ITS | Encounter Summary ---
Author Organization [facility] Address [address] [place] [address] Phone Care Team Providers Care Manager Music Name Role Phone Tiffanie Crow MD Unavailable Destin Freed MD Unavailable Alisia Velasquez MD Unavailable Presley Bhandari MD Unavailable Ana Lilia Mclain-C Unavailable Esme Claudio MD Unavailable Neeraj Win MD Unavailable Esme Aaron MD Unavailable [phone] Jose Carlos Katz MD Unavailable Esme Claudio MD Primary Care Provider + Esme Claudio MD Unavailable Cullen Corrigan MD Unavailable Roseann Lopez Primary Care Provider [phone] Cullen Corrigan MD Unavailable Esme Claudio MD Unavailable [phone] Encounter Details Date Type Department Care Team (Latest Contact Info) Description 02/08/2017 Transcribe Orders [address] [place] [address] Mark Ferris MD [address] [place] [address] [email or web address] Frequent bowel movements (Primary Dx) Social History [...] TTG IGA ANTIBODY <1.2 <4.0 (Negative) U/mL [facility] DPT OF LAB MED AND PAT+ Blood 02/08/2017 11:1 5 AM EST 02/08/2017 11:18 AM EST us Mark Ferris MD LAB BLOOD BKR ORDERABLES Final R esult [facility] DPT OF LAB MED AND PAT+ [address] [place] [address] * Immunoglobulin A (02/08/2017 11:15 AM EST) IgA 153 70 - 400 mg/dL [facility] Blood 02/08/2017 11:1 5 AM EST 02/08/2017 11:18 AM EST us Mark Ferris MD LAB BLOOD BKR ORDERABLES Final R esult [facility] [address] [place] [address] documented in this encounter Visit Diagnoses Diagnosis Frequent bowel movements- Primary Other symptoms involving digestive system documented in this encounter Additional Health Concerns Infection Onset Date Last Indicated Resolved Time CoV-Risk 06/26/2019 06/27/2019 07/11/2019 1:23 AM EDT documented as of this encounter Care Teams Manager Music Relationship Specialty Start Date End Date Esme Claudio MD [address] [place] [address] [email or web address] PCP - General Family Medicine 02/08/17 12/14/21 Roseann Lopez PA [address] [place] [address] [address] [place] [address] [email or web address] PCP - General Unknown Provider Specialty 12/15/21 Tiffanie Crow MD [address] [place] [address] 3 [place] [address] Historical LMR Provider 12/24/16 2 Destin Freed MD [address] [place] [address] [email or web address] Historical LMR Provider 12/24/16 03/18/21 Alisia Velasquez MD 15 [facility], 2nd [place] [address] [email or web address] Historical LMR Provider 12/24/16 Presley Bhandari MD [address] [place] [address] Historical LMR Provider 12/24/16 Ana Lilia Mclain PA-C [address] [place] [address] Orth[facility] Medicine, [place] [address] [email or web address] Historical LMR Provider 12/24/16 03/18/21 Esme Claudio MD [address] [place] [address] Historical LMR Provider 12/24/16 Neeraj Win MD [address] [address] Historical LMR Provider 12/24/16 03/18/21 Esme Aaron MD [address] [place] [phone] Historical LMR Provider 12/24/16 2 Jose Carlos Katz MD [address] [place] [address] [facility], [place] [address] Historical LMR Provider 12/24/16 2 Esme Claudio MD [address] [place] [address] Insurance Assigned Provider 07/12/18 10/15/20 Cullen Corrigan MD [address] [place] [address] Insurance Assigned Provider 10/15/20 06/17/21 Cullen Corrigan MD [address] [place] [address] Insurance Assigned Provider 07/14/22 09/15/22 Esme Claudio MD [address] [place] [address] [email or web address] Insurance Assigned Provider 06/15/23 11/16/23 documented as of this encounter Additional Source Comments The information contained in this document represents components of the legal health record. It is not the complete legal health record.[facility]
--- OUTSIDE RECORDS SUMMARY | 2025-02-26 08:11 | XMS_ITS | Encounter Summary ---
Author Organization [facility] Address [address] [place] [address] Phone Care Team Providers Care Fusion Operator Name Role Phone Tiffanie Crow MD Unavailable Destin Freed MD Unavailable Alisia Velasquez MD Unavailable Presley Bhandari MD Unavailable Ana Lilia Mclain-C Unavailable Esme Claudio MD Unavailable Neeraj Win MD Unavailable Esme Aaron MD Unavailable [phone] Jose Carlos Katz MD Unavailable Esme Claudio MD Primary Care Provider + Esme Claudio MD Unavailable Cullen Corrigan MD Unavailable Roseann Lopez Primary Care Provider [phone] Cullen Corrigan MD Unavailable Esme Claudio MD Unavailable Encounter Details Date Type Department Care Team (Late st Contact Info) Description 06/11/2018 Ancillary Orders [facility] Department [address] [place] [address] Roseann Lopez PA [address] [place] [address] [email or web address] Breast screening Social History Tobacco Use Types [...] documented as of this encounter Care Teams Fusion Operator Relationship Specialty Start Date End Date Esme Claudio MD [address] [place] [phone] [email or web address] PCP - General Family Medicine 02/08/17 12/14/21 Roseann Lopez PA [address] [place] [address] [address] [place] [address] [email or web address] PCP - General Unknown Provider Specialty 12/15/21 Tiffanie Crow MD [address] [place] [address] [address] [place] [address] Historical LMR Provider 12/24/16 2 Destin Freed MD [address] [place] [address] [email or web address] Historical LMR Provider 12/24/16 03/18/21 Alisia Velasquez MD [address] [place], [place] [address], [place] [address] Historical LMR Provider 12/24/16 Presley Bhandari MD [address] [place] [address] Historical LMR Provider 12/24/16 Ana Lilia Mclain PA-C [address] [place] [address] Orthopedics & Sports [facility], [place] [address] [email or web address] Historical LMR Provider 12/24/16 03/18/21 Esme Claudio MD [address] [place] [address] Historical LMR Provider 12/24/16 Neeraj Win MD [address] [facility], [address] [place] [address] Historical LMR Provider 12/24/16 03/18/21 Esme Aaron MD [address] [place] [address] Historical LMR Provider 12/24/16 2 Jose Carlos Katz MD [address] [place] [address] Orthopedics Sports [facility], [place] [address] [email or web address] Historical LMR Provider 12/24/16 2 Esme Claudio MD [address] [place] [address] [email or web address] Insurance Assigned Provider 07/12/18 10/15/20 Cullen Corrigan MD [address] [place] [address] [email or web address] Insurance Assigned Provider 10/15/20 06/17/21 Cullen Corrigan MD [address] [place] [address] [email or web address] Insurance Assigned Provider 07/14/22 09/15/22 Esme Claudio MD [address] [place] [address] [email or web address] Insurance Assigned Provider 06/15/23 11/16/23 documented as of this encounter Additional Source Comments The information contained in this document represents components of the legal health record. It is not the complete legal health record.[facility]
--- OUTSIDE RECORDS SUMMARY | 2025-02-26 08:12 | XMS_ITS | Encounter Summary ---
Author Organization [facility], Address [address] [place] [address] Phone Care Team Providers Care Biological Plant Operator Name Role Phone Austin Rios PA-C Primary Care Provider [phone] Encounter Details Date Type Department Care Team (Late st Contact Info) Description 04/03/2024 Documentation Only [facility], [address] [place] [address] Peyton Mendez [address] [place] [address] Social History Tobacco Use Types [...] on filedocumented in this encounter Care Teams Biological Plant Operator Relationship Specialty Start Date End Date Austin Rios PA-C [address] [place] [address] PCP - General Physician Head Refrigerating Engineer 02/27/24 documented as of this encounter
--- OUTSIDE RECORDS SUMMARY | 2025-02-26 08:13 | XMS_ITS | Patient Health Record ---
Author Organization [facility] Address [address] [place] [address] Care Team Providers Care Cyber Intelligence Analyst Name Role Phone Esme Claudio Primary Care Provider [phone] Austin Rios Unavailable [phone] Lizzeth Paul Unavailable [phone] Ernie Sun Unavailable [phone] Caleb Santana Unavailable [phone] Marya Paris Unavailable [phone] Tyler Bryant Unavailable [phone] Allergies Allergen (clinical drug ingredient) Drug/Non Drug Allergy documented on EMR Reaction Allergy Type Onset Date Status LATEX SENSITIVE (uncoded) when wearing gloves Allergy Active acetaminophen / oxycodone Percocet itchy mouth, rash Drug Allergy Active Results Component Value Reference Range Notes Rapid Strep Reviewed date:06/06/2024 04:59:10 PM Interpretation:Negative Performing Lab: Notes/Report: Negative RAPID STREP negative Reason For Referral Reason JACKY Diagnosis 1 JACKY (G47.33) Referral Organization [facility] Referring Provider First Name Austin Referring Provider Last Name Gabriel Referring Provider Speciality [facility] ctice Referred Provider JAMES PAGE, SLE EP LAB General Notes Marya Catherine 03/12 01:09:47 PM > Referral faxed to: [phone] Clinical Notes Provider Name: OSBALDO PAGE, SLEEP LAB, Provider ID Number: , Provider UPIN: , Provider NPI: , Provider Facility: , Provider Speciality: , Address1: [address] [place] [address], Address2: , City, State, Zip: [place], [address], , Appt. Date/Time: , Referral Priority Routine Reason Joint pains, episodi c Diagnosis 1 Joint pains (M25.50) Referral Organization [facility] Referring Provider First Name Austin Referring Provider Last Name Gabriel Referring Provider [facility] Referred Provider [facility], Rheumatology Referred Provider Specialty Rheumatology General Notes Gabriel Austin Russo 025 01:54:55 PM >fax MGB ID note with referral, Marya Catherine 06/18/2024 12:12:46 PM > Referral faxed to: [phone] Clinical Notes Provider Name: [facility], Rheumatology, Provider ID Number: , Provider UPIN: , Provider NPI: , Provider Facility: , Provider Speciality: Rheumatology, Address1: [address] [place] [address] Dr[address] Address2: [address] [facility], [facility], Zip: [place], [address], , Appt. Date/Time: , Referral Priority Routine Reason Vomiting, ED follow up Diagnosis 1 Nausea and/or vomiti ng (R11.2) Referral Organization [facility] Referring Provider First Name Austin Referring Provider Last Name Gabriel Referring Provider [facility] ctice Referred Provider [facility], Gastroenterology Referred Provider Specialty Gastroentero logy General Notes Marya Catherine 07/10 02:45:59 PM > referral faxed to: [phone] Clinical Notes Provider Name: [facility], Gastroenterology, Provider ID Number: , Provider UPIN: , Provider NPI: , Provider Facility: , Provider Speciality: Gastroenterology, Address1: [address] [place] [address], Address2: [facility], Zip: [place], [address], , Appt. Date/Time: , Referral Priority Routine Reason For Edema, leg swell ing Diagnosis 1 Edema localized (R60 .0) Referral Organization [facility] Referring Provider First Name Austin Referring Provider Last Name Gabriel Referring Provider Speciality Family Pra ctice Referred Provider Karla [place])Ava ip Referred Provider Specialty Vascular Constnace maikel General Notes Marya Catherine 10/09 08:43:38 AM > REFERRAL FAXED TO: [phone] Clinical Notes Provider Name: Jose Acosta ([place]) , Provider , Provider Speciality: Vascular Surgery, Address1: [address], [facility], Zip: [place], [address], , Referral Priority Routine Medications Medication SIG (Take, Route, Frequency, Duration) Notes Start Date End Date Status Spironolactone 50 MG Tablet 1 tablet Orally daily; Duration: 90 days 10/05/2024 Active Levothyroxine Sodium 100 MCG Tablet 1 tab(s) orally once a day; Duration: 90 days Active Ondansetron 4 MG Tablet Disintegrating 1 tab(s) orally every 8 hours; Duration: 30 days As needed Active LORazepam 1 MG Tablet 1 tab(s) orally 1 times a day prn anxiety - sparing use; Duration: 30 days PRN 02/11/2025 Active Cyclobenzaprine HCl 10 MG Tablet 1 tab(s) orally 3 times a day; Duration: 10 days As needed Active DULoxetine HCl 60 MG Capsule Delayed Release Particles 1 capsule Orally Once a day; Duration: 60 days 02/11/2025 Active amLODIPine Besylate 10 MG Tablet 1 tablet Orally Once a day; Duration: 90 days Active Flonase Allergy Relief 50 MCG/ACT Suspension 1 spray in each nostril Nasally Twice a day; Duration: 30 days 02/05/2024 Active Adderall XR 30 MG Capsule Extended Release 24 Hour 1 capsule in the morning Orally Once a day; Duration: 60 days 01/25/2025 Not-Taking/PRN Naproxen 250 MG Tablet 1 tablet with food or milk as needed Orally every 12 hrs; Duration: 30 days As needed 03/30/2024 Active Qvar RediHaler 80 MCG/ACT Aerosol Breath Activated 1 puff(s) inhaled 2 times a day; Duration: 90 days 06/11/2018 Active Adderall 5 MG Tablet 1 tablet Orally once a day; Duration: 30 days sparingly only PRN 09/04/2024 Not-Taking/PRN Albuterol Sulfate HFA 108 (90 Base) MCG/ACT Aerosol Solution 2 puff(s) inhaled 4 times a day prn; Duration: 90 days prn 08/19/2017 Not-Taking/PRN Immunizations Vaccine Route Administration Date Status Comme nts COVID VACC 19+ PFIZER PURCHASED IM Intramuscular 03/30/2024 Administered COVID Vacc BIVALENT 12+ Pfizer IM Intramuscular 12/20/2021 Administered COVID-19 Vaccine (Moderna), History Unknown 03/26/2020 Administered COVID-19 Vaccine (Moderna), History Unknown 04/23/2020 Administered COVID-19 Vaccine (Moderna), History Unknown 01/15/2021 Administered Flu Vaccine; History Unknown 12/10/2009 Administered pt states she recieved the flu vaccine at work at today's office visit Flu Vaccine; History Unknown 12/14/2010 Administered Flu Vaccine; History Unknown 12/14/2011 Administered Flu Vaccine; History Unknown 01/15/2013 Administered Flu Vaccine; History Unknown 12/11/2024 Administered FLUBLOK PURCHASED IM Intramuscular 12/20/2021 Administered FLUBLOK PURCHASED IM Intramuscular 12/05/2023 Administered Fluzone P, PF, pre-filled IM Intramuscular 03/23/2016 Administered Fluzone Vaccine; History Unknown 12/16/2008 Administered H1N1 injection, history Unknown 12/28/2008 Administered Hep A Vaccine; History Unknown 03/28/2011 Administered Hepatitis A adult, office purchased IM Intramuscular 01/22/2013 Administered Hepatitis B Vaccine; History Unknown 03/24/1991 Administered Hepatitis B Vaccine; History Unknown 05/23/1991 Administered Hepatitis B Vaccine; History Unknown 01/23/1992 Administered PREVNAR 20 PURCHASED IM Intramuscular 03/30/2024 Administered SHINGRIX PURCHASED IM Intramuscular 07/19/2021 Administere d SHINGRIX PURCHASED IM Intramuscular 07/24/2022 Administere d Td vaccine, state Unknown 06/29/2004 Administered TDAP >7 PURCHASED (ADACEL) IM Intramuscular 07/19/2021 Administered Tdap Adacel,purchased IM Intramuscular 10/08/2011 Administered OFFICE PURCHAS ED vivotif (history) Unknown 02/08/2013 Administered yellow fever vaccine, history Unknown 02/25/2013 Administered Social History Social History Social History Social Info Question Answer Notes Smoking: Former Smoker: Yes quit 11/2023 Additional Details Category Social Info Options Details Social History 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 [...] W/U Status Risk Notes Problem Anxiety (finding) (58773354) Anxiety (unspecified) (F41.9) Active confirmed Problem Dysphagia (25873645) Dysphagia (R13.10) Active confirmed Problem Hyperlipidemia (98242748) Hyperlipidemia, unspecified (E78.5) Active confirmed Problem Neck pain (93082536) Pain Neck (M54.2) Active confirmed Problem Reactions to severe stress, other (F43.8) Active confirmed Problem Obstructive sleep apnea syndrome (40483744) JACKY (G47.33) Active confirmed Problem Allergic rhinitis (19584599) Allergic rhinitis, Other (J30.89) Active confirmed Problem Mild intermittent asthma (737947684) Asthma Mild intermittent, uncomplicated (J45.20) Active confirmed Problem Impaired fasting glucose (116386742) Impaired fasting glucose (R73.01) Active confirmed Problem C-reactive protein abnormal (441411084) Elevated C-reactive protein (CRP) (R79.82) Active confirmed Problem Obese class II (939863780225744) BMI 35.0-35.9, adult (Z68.35) Active confirmed Problem Attention deficit hyperactivity disorder (078203341) ADHD, other type (F90.8) Active confirmed Problem Attention deficit hyperactivity disorder (358583480) ADHD, unspecified type (F90.9) Active confirmed Problem Vitamin D deficiency (41692896) Vitamin D deficiency, unspecified (E55.9) Active confirmed Problem Fatigue (59096812) Fatigue (R53.83) Active conf irmed Problem Hypertension (62306486) HTN (I10) Active confirmed Problem Hypothyroidism (50067879) Hypothyroidism, unspecified (E03.9) Active confirmed Problem Perimenopausal disorder (055680014) HOT FLASHES (N95.8) Active confirmed Problem Muscle pain (26291328) Myalgia, unspecified site (M79.10) Active confirmed Problem Cyclical vomiting syndrome (disorder) (50531284) Cyclical vomiting syndrome unrelated to migraine (R11.15) Active confirmed Vital Signs Temperature 97.6 degrees Fahrenheit 02/24/2025 Blood pressure diastolic 70 mm Hg 02/24/2025 Oximetry 97 02/24/2025 Height 59.75 in 02/24/2025 Blood pressure systolic 124 mm Hg 02/24/2025 Weight 182.0 lbs 02/24/2025 BMI 35.84 kg/m2 02/24/2025 Procedures Procedure Date Ordered Date Performed Result Body Sit e EKG 09/23/2024 N/A Encounters Encounter Location Date Provider Diagnosis [facility] [address] [place] [address] 05/13/2024 Haiying [place] Pain Neck M54.2 ; Pa in wrist, left M25.532 and Pain wrist, right M25.531 [facility] [address] [place] [address] 05/21/2024 Haiying [place] Pain Neck M54.2 ; Pa in wrist, left M25.532 and Pain wrist, right M25.531 [facility] [place] [address] [place] [address] 06/25/2024 Haiying [place] Pain Neck M54.2 ; Pa in wrist, left M25.532 and Pain wrist, right M25.531 [facility] [place] [address] [place] [address] 07/02/2024 Haiying [place] Pain wrist, left M25.532 ; Other low back pain M54.59 ; Pain Neck M54.2 and Pain wrist, right M25.531 [facility] [place] [address] [place] [address] 02/22/2025 Austin Rios No Show or Late Canc el NS.LTCX [place] [address] [place] [address] 02/24/2025 Austin Rios Nausea R11.0 ; Fatig ue R53.83 ; Tachycardia, unspecified R00.0 ; Hypothyroidism, unspecified E03.9 and BMI 35.0-35.9, adult Z68.35 [facility] [address] [place] [address] 03/13/2024 Esme Claudio Pain arm, left upper M79.622 and Pain arm, right upper M79.621 [facility] [place] [address] [place] [address] 03/30/2024 Austin Rios Adult physical MADDY L Z00.00 ; Vitamin D deficiency, unspecified E55.9 ; Hypothyroidism E03.9 ; HTN I10 ; Encounter for immunization Z23 ; Back pain, other M54.89 ; JACKY G47.33 ; Hyperlipidemia, unspecified E78.5 and Hypokalemia E87.6 [place] [address] [place] [address] 04/13/2024 Marya Paris Fever, unspecified R50.9 ; Pain abd Generalized R10.84 ; Nausea R11.0 ; Vomiting, unspecified R11.10 and Constipation, unspecified K59.[address] [facility] [address] [address] 05/05/2024 Lizzeth Paul HTN I10 ; Nausea and/or vomiting R11.2 ; Cyclical vomiting syndrome unrelated to migraine R11.15 ; Impaired fasting glucose R73.01 ; Fatigue R53.83 ; Elevated C-reactive protein (CRP) R79.82 and Hyperlipidemia, unspecified E78.[address] [address] 05/21/2024 Austin Rios Nausea and/or vomiti ng R11.2 and Hypokalemia E87.6 [facility] [place] [address] [place] [address] 06/05/2024 Esme Claudio Sore throat J02.9 an d Ned ker inflamed L82.0 [facility] [place] [address] [place] [address] 06/15/2024 Austin Rios Nausea and/or vomiti ng R11.2 ; HTN I10 ; Joint pains M25.50 and ADHD, unspecified type F90.[address] [facility] [address] [address] 08/14/2024 Caleb Santana Vomiting unspecified R11.10 and Nausea R11.0 [facility] [place] [address] [place] [address] 09/14/2024 Caleb Santana Fever NOS R50.9 and Nausea R11.0 [facility] [place] [address] [place] [address] 09/21/2024 Austin Rios Vomiting unspecified R11.10 ; Nausea R11.0 ; Fatigue R53.83 and ADHD, other type F90.8 [place] [address] [place] [address] 09/23/2024 Ernie Corinne Hypokalemia E87.6 ; HTN I10 and Nausea R11.[address] [facility] [address] [address] 09/24/2024 Austin Rios Hypokalemia E87.6 an d Nausea R11.0 [facility] [place] [address] [place] [address] 09/28/2024 Austin Rios Hypokalemia E87.6 ; Vomiting unspecified R11.10 ; HTN I10 and Fatigue R53.83 [facility] [place] [address] [place] [address] 10/05/2024 Austin Rios Hypokalemia E87.6 ; Vomiting unspecified R11.10 ; HTN I10 ; Edema localized R60.0 and Shortness of breath R06.[address] [address] 10/15/2024 Austin Rios Hypokalemia E87.6 ; Edema localized R60.0 and HTN I10 [address] [address] 11/12/2024 Austin Rios Nausea and/or vomiti ng R11.2 ; HTN I10 and Edema localized R60.0 [facility] [place] [address] [place] [address] 02/08/2025 Austin Rios Nausea R11.0 ; Chill s (without fever) R68.83 and Fatigue R53.83 [facility] [place] [address] [place] [address] 02/28/2024 Esme Claudio [place] [address] [place] [address] 03/30/2024 Esme Claudio [facility] [place] [address] [place] [address] 05/05/2024 Lizzeth Paul Anxiety (unspecified ) F41.9 [place] [address] [place] [address] 05/10/2024 Esme Claudio [facility] [place] [address] [place] [address] 05/10/2024 Austin Rios [facility] [place] [address] [place] [address] 05/21/2024 Austin Rios [facility] [place] [address] [place] [address] 06/23/2024 Esme Claudio [facility] [place] [address] [place] [address] 07/30/2024 Esme [place] [address] [place] [address] 09/22/2024 Austin Rios [facility] [place] [address] [place] [address] 09/22/2024 Caleb Santana [facility] [place] [address] [place] [address] 09/24/2024 Austin Rios Hypokalemia E87.6 [facility] [address] [place] [address] 09/24/2024 Austin Rios Hypokalemia E87.6 [facility] [place] [address] [place] [address] 09/28/2024 Austin Rios Hypokalemia E87.6 [facility] [place] [address] [place] [address] 10/05/2024 Austin Rios Impaired fasting glucose R73.01 and Family history of ischemic heart disease and other diseases of the circulatory system Z82.49 [facility] [place] [address] [place] [address] 10/08/2024 Austin Rios Fatigue R53.83 and ADHD, unspecified type F90.9 [facility] [place] [address] [place] [address] 12/15/2024 Austin Rios Myalgia, unspecified site M79.10 [facility] [place] [address] [place] [address] 02/24/2025 Austin Rios Tachycardia, unspecified R00.0 [facility] [place] [address] [place] [address] 04/14/2024 Marya Paris Nausea R11.0 [facility] [place] [address] [place] [address] 05/18/2024 Austin Rios [facility] [place] [address] [place] [address] 05/18/2024 Esme Claudio [facility] [address] [place] [address] 05/19/2024 Lizzeth Paul [facility] [address] [place] [address] 07/23/2024 Austin Rios HTN I10 and ADHD, unspecified type F90.9 [place] [address] [place] [address] 07/23/2024 Austin Rios [facility] [address] [place] [address] 09/01/2024 Austin Rios ADHD, unspecified ty pe F90.9 [facility] [address] [place] [address] 09/16/2024 Austin Rios [facility] [place] [address] [place] [address] 09/16/2024 Austin Rios [facility] [address] [place] [address] 2024 Austin Rios [facility] [address] [place] [address] 11/25/2024 Austin Rios Edema localized R60. 0 [facility] [place] [address] [place] [address] 01/22/2025 Austin Rios ADHD, unspecified ty pe F90.9 ; HTN I10 and Nausea and/or vomiting R11.2 Assessments Encounter Date Diagnosis (ICD Code) Assessment Notes Treatment Notes Treatment Clinical Notes Section Notes 09/28/2024 Hypokalemia (ICD-10 - E87.6) 10/05/2024 Impaired fasting glucose (ICD-10 - R73.01) 10/05/2024 Family history of ischemic heart disease and other diseases of the circulatory system (ICD-10 - Z82.49) 10/08/2024 Fatigue (ICD-10 - R53.83) 12/15/2024 Myalgia, unspecified site (ICD-10 - M79.10) 02/24/2025 Tachycardia, unspecified (ICD-10 - R00.0) 05/05/2024 Anxiety (unspecified) (ICD-10 - F41.9) 09/24/2024 Hypokalemia (ICD-10 - E87.6) 09/24/2024 Hypokalemia (ICD-10 - E87.6) 07/23/2024 HTN (ICD-10 - I10) 09/01/2024 ADHD, unspecified type (ICD-10 - F90.9) 11/25/2024 Edema localized (ICD-10 - R60.0) 04/14/2024 Nausea (ICD-10 - R11.0) 01/22/2025 ADHD, unspecified type (ICD-10 - F90.9) 05/13/2024 Pain Neck (ICD-10 - M54.2) see pain wrist TCM Pattern: 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 TCM treatment principles : scatter the cold, disperse wind and dampness in the body. tonify Qi, move Blood and Qi 05/13/2024 Pain wrist, left (ICD-10 - M25.532) Treatment/Needle Set 1:Points: Bi SP4, KD3, ST36,40, GB34, BL39, SP9 14 [place] 20 minutes face to face with patient for set 1 Treatment/Needle Set 2:Points: Bi ba lanny, LI5, TW5, LI11 14 needles 15 minutes face to face with patient for set 2 [place] were retained for 45 minutes _# of [...] KEYLA WYNN T2,1,C7, BL10, AN SARA 20 [place] 20 minutes face to face with patient for set 1 Treatment/Needle Set 2:Points:L LI5, Ling gu, Da abran, TW5, 1 Needle on thenar eminence crease near wrist, R raji ca (4 needles), 9 needles 15 minutes face to face with patient for set 2 [place] were retained for 45 minutes _# of [...] body. tonify Qi, move Blood and Qi 02/22/2025 No Show or Late Cancel (ICD-10 - NS.LTCX) 02/24/2025 Nausea (ICD-10 - R11.0) feeling better presently, had recent gastric emptying study and now sched for HIDA scan this week. continues with GI work up b 02/24/2025 Fatigue (ICD-10 - R53.83) mood ok, feels anxiety sometimes worsens her physical symptoms when she starts to have the nausea and vomiting b 03/13/2024 Pain arm, right upper (ICD-10 - [...] room. -Lab and Xray order sent to [facility] and pt's email- ML 04/13/2024 Fever, unspecified [...] far. Awaiting GI consult in July thru [facility] now. No current symptoms Completed intermittent FMLA [...] by prior GI note. Patient will see [facility] GI next month for consult and will [...] [facility] in past but now awaiting [facility] GI consult, appt in november , and [...] further action if needed. 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 Less vomiting this time. Will ensure labs ok and has continued GI work up in coming weeks. Aware to call back sooner as needed or go to ED if severe worsening. FMLA ppw completed 02/08/2025 Chills (without fever) (ICD-10 - R68.83) see above, ongoing issue with frequent episodes. Has had imaging, multiple ED evals and in midst of GI workup/awaiting rheum consult 02/08/2025 Fatigue (ICD-10 - R53.83) mood ok, Ativan PRN only for panic, aware of risks and using sparingly 11/12/2024 Edema localized (ICD-10 - R60.0) Reports [...] advised to discuss nausea management with her chalk cutter, Tyler. we discussed that [facility] (only one her insurance will pay for) is actually known for dealing well with unexplained GI issues and she may actually have a very good experience there! 06/15/2024 Joint pains (ICD-10 - M25.50) Gets chills, joint pains, nausea, vomiting, episodically as discussed above. Referral to specifications checker made as discussed 05/05/2024 Cyclical vomiting syndrome unrelated to migraine (ICD-10 - R11.15) 04/13/2024 Nausea (ICD-10 - R11.0) -given a shot of 25 milligram Promethazine Today, has Promethazine suppositories and Zofran at home -She was advised to increase her fluid intake, small sips and take smaller bites while eating. 03/30/2024 Hypothyroidism (ICD-10 - E03.9) refill sent, will update labs 02/24/2025 Tachycardia, unspecified (ICD-10 - R00.0) peristent tachycardia, no recent adderall use either. Will check labs and order heart monitor. no palpitations, dizziness, or other symptoms. Plans to get back to more regular exercise as well. call back if any sxs develop b 06/25/2024 Pain wrist, left (ICD-10 - M25.532) Treatment/Needle Set 1:Points: Ba susu, Bi Khari cifuentes, keyla wynn T3,2, 1,C7, GB20. 20 [place] 20 minutes face to face with patient for set 1 Treatment/Needle Set 2:Points:L LI4,5, 3, LU1, 9, 1 Needle on thenar eminence crease, TW6, 1 Ba lanny between 2-3rd finger 8 needles 15 minutes face to face with patient for set 2 [place] were retained for 45 minutes _# of [...] Bi SP4, ST36, PC6, ST21, CV12,11 10 [place] 20 minutes face to face with patient for set 1 Treatment/Needle Set 2:Points: Bi ba lanny, LI5, ST44, CV6 13 needles 15 minutes face to face with patient for set 2 [place] were retained for 45 minutes _# of [...] body. tonify Qi, move Blood and Qi 01/22/2025 HTN (ICD-10 - I10) 07/23/2024 ADHD, unspecified type (ICD-10 - F90.9) 10/08/2024 ADHD, unspecified type (ICD-10 - F90.9) 01/22/2025 Nausea and/or vomiting (ICD-10 - R11.2) 05/21/2024 Pain wrist, right (ICD-10 - M25.531) [...] body. tonify Qi, move Blood and Qi 02/24/2025 Hypothyroidism, unspecified (ICD-10 - E03.9) reports has not been taking levothyroxine recently, labs ordered. b 04/13/2024 Vomiting, unspecified (ICD-10 - R11.10) -Nausea, vomiting, and cramping could be related to constipation. She disagrees with this but is willing to try Miralax, 17 grams in 8 oz of water daily. She can sip it slowly throughout the day to get it in. 03/30/2024 HTN (ICD-10 - I10) BP in range today. Has continued work up pending thru Dr Fletcher to assess renal artery US. I advised [...] 03/30/2024 Encounter for immunization (ICD-10 - Z23) 02/24/2025 BMI 35.0-35.9, adult (ICD-10 - Z68.35) Discussed lifestyle and consideration of GLP1 medication, wants to discuss at next visit b 03/30/2024 Back pain, other (ICD-10 - M54.89) advised on risks of NSAIDs, particularly with HTN, refill sent to have on hand but she is aware of these risks and states she uses this medication very sparingly 05/05/2024 Elevated C-reactive protein (CRP) (ICD-10 - R79.82) 05/05/2024 Hyperlipidemia, unspecified (ICD-10 - E78.5) 03/30/2024 JACKY (ICD-10 - G47.33) Referral to [facility] sleep medicine made as discussed. We reviewed the impact untreated JACKY can have on metabolism, mood, HTN, Cardiovascular system, etc 03/30/2024 Hyperlipidemia, unspecified (ICD-10 - E78.5) Update labs, follow up to review results 03/30/2024 Hypokalemia (ICD-10 - E87.6) States she has been followed by renal for lower potassium, of note is prescribed HCTZ. We will re-check level and further management pending results. Pt aware of symptoms that would require return to ED. 03/13/2024 Other Extended visit of greater than 40 minutes was had with patient face to face under the supervision of Esme Claudio MD. Greater than half the visit was spent in counselling and education regarding the patient's physical well being with training for future improved posture as described above. 03/30/2024 [facility] flow sheet reveiwed and updated 04/13/2024 Other [...] mesenteric ischemia. pt has been see through [facility], although I am not [...] minutes were spent involving this patient's care 05/13/2024 Other Patient presents with signs and [...] had with patient face to face in [facility] office. Consult and education time includes: 1)Previsit visit time: review patient acupuncture intake form, history of western medical conditions on file (EHR), imaging, lab results, sometime discussion with patient's PCP, 2) During visit time: intake and examination, palpation, consultation; 3)Post visit time: record clinic notes, sometime discussion with patient's PCP. Clean Needle Technique (CNT) is used in every treatment. Euyh-nn-ogqr time includes day-to-day evaluation, hand washing, choosing [...] had with patient face to face in [facility] office. Consult and education time includes: 1)Previsit visit time: review patient acupuncture intake form, history of western medical conditions on file (EHR), imaging, lab results, sometime discussion with patient's PCP, 2) During visit time: intake and examination, palpation, consultation; 3)Post visit time: record clinic notes, sometime discussion with patient's PCP. Clean Needle Technique (CNT) is used in every treatment. Dzgj-ev-eovw time includes day-to-day evaluation, hand washing, choosing [...] had with patient face to face in [facility] office. Consult and education time includes: 1)Previsit visit time: review patient acupuncture intake form, history of western medical conditions on file (EHR), imaging, lab results, sometime discussion with patient's PCP, 2) During visit time: intake and examination, palpation, consultation; 3)Post visit time: record clinic notes, sometime discussion with patient's PCP. Clean Needle Technique (CNT) is used in every treatment. Puft-jv-tdrs time includes day-to-day evaluation, hand washing, choosing [...] had with patient face to face in [facility] office. Consult and education time includes: 1)Previsit visit time: review patient acupuncture intake form, history of western medical conditions on file (EHR), imaging, lab results, sometime discussion with patient's PCP, 2) During visit time: intake and examination, palpation, consultation; 3)Post visit time: record clinic notes, sometime discussion with patient's PCP. Clean Needle Technique (CNT) is used in every treatment. Eylx-qs-ptkz time includes day-to-day evaluation, hand washing, choosing [...] body. tonify Qi, move Blood and Qi Plan Of Treatment Pending Test Test Name Order Date X ray : Chest PA and LAT 09/10/2017 X ray : Chest PA and LAT 01/09/2023 X ray : Chest PA and LAT 10/05/2024 X ray : Chest PA and LAT 04/14/2007 X ray : Chest PA and LAT 01/22/2011 Urine Dip --in house 01/09/2023 Ultrasound : Breast, right 09/01/2009 Barium Swallow 06/11/2018 Echocardiogram 12/05/2023 Mammogram 05/11/2021 Mammogram 07/19/2021 Mammogram 02/15/2016 Mammogram 12/14/2022 Spirometry 06/11/2018 Spirometry 10/22/2013 Rapid Strep 08/27/2022 Urine Cyt[facility] ([facility]) 06/26/2017 Urine Cytology ([facility]) 10/30/2016 Colonoscopy 07/19/2021 Colonoscopy 05/11/2021 Colonoscopy 05/11/2021 [...] screening 08/10 Mammogram, routine annual screening 05/2021 Urine Osmo Random 06/05/2022 Urine, Sodium Random 06/05/2022 MRI : Wrist, Left 04/20/2010 -HEMOGLOBIN A1C (DIAGNOSTIC) 11/06/2011 -ROSS IFA, W/REFL TO TITER/PATTERN/CASCAD E 05/05/2024 AMYLASE 05/05/2024 TSH, 3RD GENERATION W/REFLEX TO FT4 04/12 CBC WITH DIFF 05/05/2024 VITAMIN B12/FOLATE, SERUM PANEL 05/05/19 SED RATE 05/05/2024 -TSH 08/28/2011 -TSH 09/14/2009 -TSH 09/19/2010 TSH WITH REFLEX TO FT4 02/24/2025 -LIPID PANEL, FASTING 07/20/2010 -LIPID PANEL, FASTING 11/06/2011 COMPREHENSIVE METABOLIC PANL -85124 10/10 COMPREHENSIVE METABOLIC PANL -06541 04/12 MRI: Lumbar spine with and without contr ast 07/16/2013 LIPID PANEL 05/05/2024 Stress Treadmill Test 12/05/2023 FERRITIN 11/23/2022 FERRITIN 12/14/2022 IRON & TIBC 11/23/2022 LIPASE 05/05/2024 HEMOGLOBIN A1C 05/12/2018 HEMOGLOBIN A1C 12/12/2017 HEMOGLOBIN A1C 06/24/2020 HEMOGLOBIN A1C 06/26/2017 HEMOGLOBIN A1C 10/30/2016 HSCRP 10/26/2015 HSCRP 09/24/2013 HSCRP 07/27/2014 COMPREHENSIVE METABOLIC PANL 05/12/2018 COMPREHENSIVE METABOLIC PANL 07/27/2014 COMPREHENSIVE METABOLIC PANL 10/26/2015 COMPREHENSIVE METABOLIC PANL 10/25/2014 COMPREHENSIVE METABOLIC PANL 10/30/2016 COMPREHENSIVE METABOLIC PANL 06/26/2017 COMPREHENSIVE METABOLIC PANL 12/12/2017 COMPREHENSIVE METABOLIC PANL 06/24/2020 COMPREHENSIVE METABOLIC PANL 10/27/2022 COMPREHENSIVE METABOLIC PANL 11/23/2022 COMPREHENSIVE METABOLIC PANL 01/09/2023 COMPREHENSIVE METABOLIC PANL 06/05/2022 COMPREHENSIVE METABOLIC PANL 07/24/2022 COMPREHENSIVE METABOLIC PANL 05/11/2021 COMPREHENSIVE METABOLIC PANL 07/19/2021 LIPID PANEL 05/11/2021 LIPID PANEL 07/19/2021 LIPID PANEL 07/24/2022 LIPID PANEL 12/12/2017 LIPID PANEL 06/26/2017 LIPID PANEL 10/30/2016 LIPID PANEL 10/25/2014 LIPID PANEL 10/26/2015 LIPID PANEL 07/27/2014 LIPID PANEL 05/12/2018 TSH WITH REFLEX TO T4 05/12/2018 TSH WITH REFLEX TO T4 10/26/2015 TSH WITH REFLEX TO T4 10/25/2014 TSH WITH REFLEX TO T4 10/30/2016 TSH WITH REFLEX TO T4 06/26/2017 TSH WITH REFLEX TO T4 12/12/2017 TSH WITH REFLEX TO T4 07/24/2022 TSH WITH REFLEX TO T4 07/19/2021 TSH WITH REFLEX TO T4 05/11/2021 CORTISOL 07/19/2021 ESTRADIOL 07/19/2021 INSULIN 06/24/2020 TSH 09/14/2013 TSH 07/27/2014 Vitamin D25 OH 05/12/2018 Vitamin D25 OH 08/24/2018 Vitamin D25 OH 09/24/2018 Vitamin D25 OH 07/27/2014 Vitamin D25 OH 12/12/2017 Vitamin D25 OH 10/26/2015 Vitamin D25 OH 05/11/2021 Vitamin D25 OH 07/19/2021 Vitamin D25 OH 07/24/2022 CBC 07/16/2013 CBC AUTO DIFF 10/26/2015 CBC AUTO DIFF 10/25/2014 CBC AUTO DIFF 12/12/2017 CBC AUTO DIFF 06/26/2017 CBC AUTO DIFF 10/30/2016 CBC AUTO DIFF 07/24/2022 CBC AUTO DIFF 07/19/2021 CBC AUTO DIFF 01/09/2023 CBC AUTO DIFF 10/27/2022 CBC AUTO DIFF 09/24/2018 CBC AUTO DIFF 05/12/2018 SED RATE 12/14/2022 SED RATE 01/09/2023 SED RATE 07/19/2021 SED RATE 10/27/2022 SED RATE 10/30/2016 ROSS (ANTI-NUCLEAR ANTIBODY SCREEN) USE THIS ONE 10/26/2015 ROSS (ANTI-NUCLEAR ANTIBODY SCREEN) USE THIS ONE 12/14/2022 CRP 12/14/2022 CRP 07/16/2013 CRP 10/25/2014 CRP 10/30/2016 CRP 10/27/2022 CRP 07/19/2021 CRP 01/09/2023 CRP 11/23/2022 RHEUMATOID FACTOR 10/26/2015 LYME AB 07/16/2013 LYME [...] reflex 11/27/2019 1-25-OH vitamin D 11/27/2019 CBC 02/24/2025 CBC 12/05/2023 CBC 03/30/2024 CBC 10/05/2024 BASIC METABOLIC PANEL 09/28/2024 BASIC METABOLIC PANEL 09/24/2024 BASIC METABOLIC PANEL 09/23/2024 COMP MET PANEL 02/08/2025 COMP MET PANEL 10/05/2024 COMP MET PANEL 09/14/2024 COMP MET PANEL 12/05/2023 COMP MET PANEL 03/30/2024 COMP MET PANEL 04/13/2024 COMP MET PANEL 02/24/2025 COMP MET PANEL 11/27/2019 Hemoglobin A1c 12/05/2023 LIPID PANEL 03/30/2024 LIPID PANEL 12/05/2023 LIPID PANEL 11/27/2019 Urinalysis 04/13/2024 Amylase 04/13/2024 CRP 09/14/2024 CRP 02/08/2025 Ferritin 02/24/2025 Free T4 03/30/2024 Lipase 04/13/2024 Lipase 09/14/2024 Lipase 02/08/2025 Magnesium 09/24/2024 Magnesium 09/23/2024 NT-proBNP 10/05/2024 TSH 03/30/2024 CBC AND DIFFERENTIAL 04/13/2024 CBC AND DIFFERENTIAL 09/14/2024 CBC AND DIFFERENTIAL 11/27/2019 CBC AND DIFFERENTIAL 02/08/2025 US ABDOMEN 09/08/2018 US ABDOMEN 09/08/2018 IRON, TIBC AND FERRITIN PANEL 05/05/2024 Calcium Scoring Test 12/05/2023 XRAY : KUB 04/13/2024 H. PYLORI BREATH TEST 09/06/2022 Holter Monitor, 3 Days 02/24/2025 CTA: Abdoman with and without contrast 1 [...] 03/27/2010 Next Appt Details Provider Name:Austin Rios, 0 04/22/2025 09:00:00 AM, [address] [place] [address], [phone], Insurance Providers Payer Name Payer Address Payer Phone Subscriber Number Group Number Insured Name Patient Relationship to Insured Coverage Start Date Coverage End Date [employer] [place] ([place]) [address] [address] [place] [phone] [id number] RAND SAMANIEGO Self - patient is the [...] 1986,1998 abdominal lipoma removed 2003 endometrial ablation- [place] 07/2007 L rotator cuff tear repair w/ 10/04/09 decompression of left median nerve dr Gallegos ath 06/07/2010 S/P Abdominal Endometrioma ( [place]) 2 004 Rt rotator cuff repair- Dr. Lovelace 05/10 LRTI - arthroscopic surgery - Nicole White [facility], Dr. Sherman 12/22/2020 Hospitalization History Reason Date(Month/Year) C for abd pain and vomiting 05/01/2024 [facility] ER for vomiting 02/2024 [facility] ER visit for vomiting 12/2022 [facility] for N/V, abdominal p ain 08/22-08/24/22
--- OUTSIDE RECORDS SUMMARY | 2025-02-26 08:13 | XMS_ITS | Clinical Summary ---
Author Organization [facility] Address [address] [place] [address] Phone Care Team Providers Care Sap Business Objects Consultant Name Role Phone Esme Claudio MD Unavailable [phone] Roseann Lopez Primary Care Provider Allergies Active [...] of 2 - PCV) 1981 COLOGUARD 09/18/2007 FIT TEST 09/18/2007 FOBT 09/18/2007 SIGMOIDOSCOPY [...] Td,Tdap Booster 07/20/2031 07/19/2021 , 10/08/2011, 06/29/2004 COLONOSCOPY 10/26/2032 12/07/2022 COLORECTAL CANCER SCREENING 10/26/2032 HEPATITIS A VACCINES Aged Out 02/25/2013 No [...] AM EST Breast screening COMPREHENSIVE METABOLIC PANEL (CMP) Routine 01/09/2023 12:50 PM EDT Abdominal pain, generalized LIPID PANEL Routine 12/07/2022 12:26 PM EDT Need for hepatitis C screening test Encounter for special screening examination for cardiovascular disorder Hot flashes Hypothyroidism, adult Vitamin D deficiency Postartificial menopausal syndrome HEPATITIS C ANTIBODY, QUALITATIVE Routine 12/07/2022 12:26 PM EDT Need for hepatitis C screening test THYROID STIMULATING HORMONE (TSH) Routine 12/07/2022 12:26 PM EDT Generalized abdominal pain Gastroesophageal reflux disease with esophagitis, unspecified whether hemorrhage HM COLONOSCOPY FOR RESULT ENTRY ONLY Routine 12/07/2022 from Last 3 Months or Most Recently [...] EDT) SODIUM 136 133 - 146 mmol/L [facility] POTASSIUM 3.5 3.3 - 5.1 mmol/L [facility] CHLORIDE 97 96 - 108 mmol/L [facility] CO2 29 21 - 35 mmol/L [facility] BUN 15 6 - 19 mg/dL [facility] CREATININE 0.90 0.5 - 1.5 mg/dL [facility] GLUCOSE 138(H) 70 - 99 mg/dL [facility] ALBUMIN 4.5 3.9 - 4.8 g/dL [facility] TOTAL PROTEIN 6.7 6.5 - 8.0 g/dL [facility] CALCIUM 9.9 8.4 - 10.3 mg/dL [facility] ALKALINE PHOSPHATASE 96 39 - 117 U/L [facility] TOTAL BILIRUBIN 0.8 0.0 - 1.2 mg/dL [facility] AST 34 0 - 37 U/L [facility] ALT 22 0 - 40 U/L [facility] GLOBULIN 2.2 1 - 4.8 g/dL [facility] EGFR 73 >59 mL/min/1.7 3m2 [facility] Comment:Estimated glomerular filtration rate calculated using the CKD-EPI refit equation. ANION GAP 14 10 - 20 mmol/L [facility] Blood 01/09/2023 12:5 0 PM EDT 01/09/2023 12:54 PM EDT Roseann BERMAN LAB BLOOD BKR ORDERABLES Fi nal Result [facility] [address] [place] [address] * Hepatitis C antibody, qualitative (12/07/2022 12:26 PM EDT) HCV NON-REACTIV E NON-REACTI VE [facility] Blood 12/07/2022 12:2 6 PM EDT 12/07/2022 12:34 PM EDT us Roseann Lopez PA LAB BLOOD BKR ORDERABLES Fi nal Result [address] [address] * TSH (12/07/2022 12:26 PM EDT) TSH 1.42 0.27 - 4.20 uIU/mL [facility] Blood 12/07/2022 12:2 6 PM EDT 12/07/2022 12:33 PM EDT us Concha Stoll PA LAB BLOOD BKR ORDERABLES Fi nal Result Performing Organization Address City/[facility]/ZIP Co de Phone Number [address] [address] * (ABNORMAL) Lipid panel (12/07/2022 12:26 PM EDT) HDL 41 mg/dL [facility] Comment: Interpretation <40 mg/dL: Low HDL cholesterol (major risk factor for CHD) Greater than or equal to 60 mg/dL: High HDL cholesterol ( negative risk factor for CHD) HDL - cholesterol is affected by a number of factors, e.g. smoking, excerise, hormones, sex and age. CHOLESTEROL 245(H) 0 - 240 mg/dL [facility] TRIGLYCERIDES 215(H) 30 - 160 mg/dL [facility] LDL 161(H) 50 - 129 mg/dL [facility] Comment: LDL levels in terms of risk for coronary heart disease: <100 mg/dL: Optimal 100-129 mg/dL: Near or above optimal 130-159 mg/dL: Borderline high 160-189 mg/dL: High >190 mg/dL: Very High CARDIAC RISK RATIO 6.0(H) 3.3 - 4.4 [facility] Blood 12/07/2022 12:2 6 PM EDT 12/07/2022 12:33 PM EDT us Roseann BERMAN LAB BLOOD BKR ORDERABLES Fi nal Result [address] [address] * COLONOSCOPY FOR RESULT ENTRY ONLY (12/07/2022) HM Colonoscopy External us Historical Provider HEALTH MAINTENANCE Final Result from Last 3 Months or Most Recently Relevant to Health Maintenance Care Teams Sap Business Objects Consultant Relationship Specialty Start Date End Date Roseann Lopez PA [address] [place] [address] [address] [place] [address] [email or web address] PCP - General Unknown Provider Specialty 12/15/21 Esme Claudio MD [address] [place] [phone] [email or web address] Historical LMR Provider 12/24/16 Additional Source Comments The information contained in this document represents components of the legal health record. It is not the complete legal health record.[facility]
--- OUTSIDE RECORDS SUMMARY | 2025-02-26 08:13 | XMS_ITS | Encounter Summary ---
Author Organization [facility] Address [address] [place] [address] Phone Care Team Providers Care Chronic Specialist Name Role Phone Esme Claudio MD Unavailable [phone] Roseann Lopez Primary Care Provider [phone] Cullen Corrigan MD Unavailable [phone] Esme Claudio MD Unavailable [phone] Reason for Referral * MRI/CAT Scan - Closed Specialty Diagnoses / Procedures Referred By Contkavitha t Referred To Contact Radiology Diagnoses Acute renal failure, unspecified acute renal failure type Procedures CT Abdomen/Pelvis CHG CT SCAN,ABDOMENT AND PELVIS,W/O CONTRAST CHG CT SCAN,ABDOMENT AND PELVIS,W CONTRAST CHG CT SCAN,ABDOMENT AND PELVIS,COMBO Esme Claudio MD Phone: tel: fax: mailto: Referral ID Status Reason Start Date Expiration Date Visits Re quested Visits Authorized [id number] Closed 06/05/2022 08/03/2022 1 1 Encounter Details Date Type Department Care Team (Late st Contact Info) Description 06/08/2022 Transcribe Orders [facility] Department [address] [place] [address] Esme Claudio MD [address] [place] [address] [id number] [email or web address] Acute renal failure, unspecified acute renal failure [...] No urolithiasis or hydronephrosis. Esme Claudio MD [facility] ABD/PELVIS Final Result documented in this encounter Visit Diagnoses Diagnosis Acute renal failure, unspecified acute renal failure type- Primary Acute renal failure, unspecified acute renal failure type documented in this encounter Care Teams Chronic Specialist Relationship Specialty Start Date End Date Roseann Lopez PA [address] [place] [address] [address] [place] [address] [email or web address] PCP - General Unknown Provider Specialty 12/15/21 Esme Claudio MD [address] [place] [address] [email or web address] Historical LMR Provider 12/24/16 Cullen Corrigan MD [address] [place] [address] [email or web address] Insurance Assigned Provider 07/14/22 09/15/22 Esme Claudio MD [address] [place] [address] [email or web address] Insurance Assigned Provider 06/15/23 11/16/23 documented as of this encounter Additional Source Comments The information contained in this document represents components of the legal health record. It is not the complete legal health record.[facility]
--- OUTSIDE RECORDS SUMMARY | 2025-02-26 08:13 | XMS_ITS | Encounter Summary ---
Author Organization [facility] Address [address] [facility] [address] [place] [address] Phone Care Team Providers Care Manufacturing Tech Name Role Phone Esme Claudio MD Unavailable Roseann Lopez Primary Care Provider Cullen Corrigan MD Unavailable [phone] Esme Claudio MD Unavailable [phone] Encounter Details Date Type Department Care Team (Late st Contact Info) Description 06/08/2022 Procedure Pass [facility], Ct Scan - [address] [address] Social History Tobacco Use Types Packs/Day Years [...] on filedocumented in this encounter Care Teams Manufacturing Tech Relationship Specialty Start Date End Date Roseann Lopez PA [address] [place] [address] [address] [place] [address] [email or web address] PCP - General Unknown Provider Specialty 12/15/21 Esme Claudio MD [address] [place] [address] [email or web address] Historical LMR Provider 12/24/16 Cullen Corrigan MD [address] [place] [address] [email or web address] Insurance Assigned Provider 07/14/22 09/15/22 Esme Claudio MD [address] [place] [address] [email or web address] Insurance Assigned Provider 06/15/23 11/16/23 documented as of this encounter Additional Source Comments The information contained in this document represents components of the legal health record. It is not the complete legal health record.[facility]
--- OUTSIDE RECORDS SUMMARY | 2025-02-26 08:13 | XMS_ITS | Encounter Summary ---
Author Organization [facility], Address [address] [place] [address] Phone Care Team Providers Care Pencil Inspector Name Role Phone Austin Rios PA-C Primary Care Provider [phone] Encounter Details Date Type Department Care Team (Late st Contact Info) Description 04/01/2024 Documentation Only [facility], [address] [place] [address] Peyton Mendez [address] [place] [address] Social History Tobacco Use Types [...] on filedocumented in this encounter Care Teams Pencil Inspector Relationship Specialty Start Date End Date Austin Rios PA-C [address] [place] [phone] PCP - General Physician Die Designer 02/27/24 documented as of this encounter
--- OUTSIDE RECORDS SUMMARY | 2025-02-26 08:13 | XMS_ITS | Encounter Summary ---
Author Organization [facility] Address [address] [place] [address] Phone Care Team Providers Care Associate Director Name Role Phone Esme Claudio MD Unavailable Roseann Lopez Primary Care Provider [phone] Cullen Corrigan MD Unavailable Esme Claudio MD Unavailable [phone] Encounter Details Date Type Department Care Team (Latest Contact Info) Description 06/08/2022 Transcribe Orders Virtual Department [address] [place] [address] Remberto Fletcher MD [address] [facility] [address] [place] [address] [email or web address] Essential hypertension (Primary Dx); Prerenal azotemia Social [...] system documented in this encounter Care Teams Associate Director Relationship Specialty Start Date End Date Roseann Lopez PA [address] [place] [address] [email or web address] PCP - General Unknown Provider Specialty 12/15/21 Esme Claudio MD [address] [place] [address] [email or web address] Historical LMR Provider 12/24/16 Cullen Corrigan MD [address] [place] [address] [email or web address] Insurance Assigned Provider 07/14/22 09/15/22 Esme Claudio MD [address] [place] [address] [email or web address] Insurance Assigned Provider 06/15/23 11/16/23 documented as of this encounter Additional Source Comments The information contained in this document represents components of the legal health record. It is not the complete legal health record.[facility]
--- OUTSIDE RECORDS SUMMARY | 2025-02-26 08:13 | XMS_ITS | Clinical Summary ---
Author Organization [facility], Address [address] [place] [address] [place] [address] Phone Care Team Providers Care Pupil Personnel Services Director Name Role Phone Austin Rios PA-C Primary Care Provider [phone] Allergies Active Allergy Reactions Criticality Noted Date [...] Orientation Not on file Plan of Treatment Health Maintenance Due Date [...] to complete this topic Insurance Comprehensive Benefits Member Subscriber Plan / Payer (Ef fective 2023-Present) Name:Angela Mccracken Relation to Subscriber:Self Name:Angela Mccracken Payer ID:Not on file Type:Not on file Address: [place] [phone] Care Teams Pupil Personnel Services Director Relationship Specialty Start Date End Date Austin Rios PA-C [address] [place] [id number] PCP - General Physician Molding Machine Operator 02/27/24
--- OUTSIDE RECORDS SUMMARY | 2025-02-26 08:14 | XMS_ITS | Encounter Summary ---
Author Organization [facility] Address [address] [place] [phone] Phone Care Team Providers Care University Dean Name Role Phone Esme Claudio MD Unavailable Roseann Lopez Primary Care Provider [phone] Esme Claudio MD Unavailable [phone] Encounter Details Date Type Department Care Team (Latest Contact Info) Description 09/19/2022 Transcribe Orders [facility] Phleb Nicole [address] [place] [address] Angela Rizzo NP [address] [place] [address] Need for hepatitis C screening test (Primary [...] VITAMIN B12 415 232 - 1,245 pg/mL [facility] Blood 09/19/2022 10:0 8 AM EDT 09/19/2022 10:16 AM EDT Angela Rizzo [employer] LAB BLOOD BKR ORDERABLES Final Result Performing Organization Address City/[facility]/ZIP Co de Phone Number [address] [address] * (ABNORMAL) Ferritin (09/19/2022 10:08 AM EDT) FERRITIN 187(H) 13 - 150 ug/L [facility] Blood 09/19/2022 10:0 8 AM EDT 09/19/2022 10:16 AM EDT Angela Rizzo NP LAB BLOOD BKR ORDERABLES Final Result Performing Organization Address City/[facility]/ZIP Co de Phone Number [address] [address] * Folate (09/19/2022 10:08 AM EDT) FOLIC ACID 8.2 4.2 - 19.9 ng/mL [facility] Blood 09/19/2022 10:0 8 AM EDT 09/19/2022 10:16 AM EDT Angela Rizzo NP LAB BLOOD BKR ORDERABLES Final Result Performing Organization Address City/[facility]/ZIP Co de Phone Number [address] [phone] * Iron and iron binding capacity (09/19/2022 10:08 AM EDT) IRON 107 30 - 160 ug/dL [facility] IRON BINDING CAPACITY 331 228 - 428 ug/dL [facility] TRANSFERRIN SATURAT. 32 15 - 50 % [facility] Blood 09/19/2022 10:0 8 AM EDT 09/19/2022 10:16 AM EDT Angela Rizzo NP LAB BLOOD BKR ORDERABLES Final Result Performing Organization Address City/[facility]/ZIP Co de Phone Number [address] [address] * (ABNORMAL) C-Reactive Protein (09/19/2022 10:08 AM EDT) Pathologist [facility] C REACTIVE PROTEIN 8.7(H) 0.0 - 4.0 mg/L [facility] Blood 09/19/2022 10:0 8 AM EDT 09/19/2022 10:16 AM EDT Angela Rizzo NP LAB BLOOD BKR ORDERABLES Final Result Performing Organization Address City/[facility]/ZIP Co de Phone Number [address] [address] * (ABNORMAL) Comprehensive metabolic panel (09/19/2022 10:08 AM EDT) SODIUM 141 133 - 146 mmol/L [facility] POTASSIUM 3.7 3.3 - 5.1 mmol/L [facility] CHLORIDE 104 96 - 108 mmol/L [facility] CO2 28 21 - 35 mmol/L [facility] BUN 11 6 - 19 mg/dL [facility] CREATININE 0.60 0.5 - 1.5 mg/dL [facility] GLUCOSE 142(H) 70 - 99 mg/dL [facility] ALBUMIN 4.3 3.9 - 4.8 g/dL [facility] TOTAL PROTEIN 6.7 6.5 - 8.0 g/dL [facility] CALCIUM 9.4 8.4 - 10.3 mg/dL [facility] ALKALINE PHOSPHATASE 106 39 - 117 U/L [facility] TOTAL BILIRUBIN 0.5 0.0 - 1.2 mg/dL [facility] AST 21 0 - 37 U/L [facility] ALT 21 0 - 40 U/L [facility] GLOBULIN 2.4 1 - 4.8 g/dL [facility] EGFR 103 >59 mL/min/1.7 3m2 [facility] Comment:Estimated glomerular filtration rate calculated using the CKD-EPI refit equation. ANION GAP 13 10 - 20 mmol/L [facility] Blood 09/19/2022 10:0 8 AM EDT 09/19/2022 10:16 AM EDT us Angela Rizzo NP LAB BLOOD BKR ORDERABLES Final Result [address] [address] * CBC (09/19/2022 10:08 AM EDT) WBC 6.34 4.00 - 11.00 K/uL [facility] RBC 4.72 3.72 - 5.30 M/uL [facility] HGB 14.1 11.4 - 15.9 g/dL [facility] HCT 43.3 34.2 - 46.8 % [facility] PLT 225 140 - 430 K/uL [facility] MCV 91.7 78.0 - 97.0 fL [facility] MCH 29.9 25.0 - 33.0 pg [facility] MCHC 32.6 32.0 - 36.0 g/dL [facility] RDW 13.6 11.0 - 16.0 % [facility] MPV 12.1 8.4 - 12.8 fl [facility] Blood 09/19/2022 10:0 8 AM EDT 09/19/2022 10:16 AM EDT us Angela Rizzo NP LAB BLOOD BKR ORDERABLES Final Result [address] [address] * Immunoglobulin A (09/19/2022 10:08 AM EDT) IgA 166 70 - 400 mg/dL [facility] Blood 09/19/2022 10:0 8 AM EDT 09/19/2022 10:16 AM EDT Angela Rizzo [employer] LAB BLOOD BKR ORDERABLES Final Result Performing Organization Address City/[facility]/ZIP Co de Phone Number [facility] [address] [place] [address] * Tissue transglutaminase IgA (09/19/2022 10:08 AM EDT) TTG IGA ANTIBODY <1.2 <4.0 (Negative) U/mL [facility] Blood 09/19/2022 10:0 8 AM EDT 09/19/2022 10:17 AM EDT Angela Rizzo [employer] LAB BLOOD BKR ORDERABLES Final Result [facility] [address] [place] [address] documented in this encounter Visit Diagnoses Diagnosis Need for hepatitis C screening test- Primary Special screening examination for other specified viral diseases Nausea Nausea alone Diarrhea, unspecified type documented in this encounter Care Teams University Dean Relationship Specialty Start Date End Date Roseann Lopez PA [address] [place] [address] Dr [address] [place] [address] [email or web address] - General Unknown Provider Specialty 12/15/21 Esme Claudio MD [address] [place] [phone] [email or web address] Historical LMR Provider 12/24/16 Esme Claudio MD [address] [place] [id number] [email or web address] Insurance Assigned Provider 06/15/23 11/16/23 documented as of this encounter Additional Source Comments The information contained in this document represents components of the legal health record. It is not the complete legal health record.[facility]
== END ==
LOC: HO.NUCMED 08:06
PROVIDERS: PCP Physician Assistant; Visit Provider Nurse Practitioner
DX: R73.01 Impaired fasting glucose (principal); M25.50 Pain in unspecified joint; R11.2 Nausea with vomiting, unspecified
CPT/HCPCS: 78227; A9537; J2805

== ENCOUNTER → 2025-02-26 08:07 | Outpatient (BNV) | payer OTHER, SELFPAY | PROVIDERS: PCP Physician Assistant; Visit Provider Radiology Diagnostic Radiology | DX: K80.20 Calculus of gallbladder without cholecystitis without obstruction (principal); R11.2 Nausea with vomiting, unspecified; R73.01 Impaired fasting glucose | CPT/HCPCS: 78227 ==